=== PATIENT | female | born 1950 | race Caucasian/White ===

== ENCOUNTER 2020-04-15 17:45 | Outpatient (REF) | payer MEDICARE, SELFPAY ==
--- NOTE | 2020-04-15 18:00 | XR_ITS ---
EXAMINATION: XR HIP, LEFT CLINICAL INFORMATION: Left lower quadrant pain COMPARISON: None TECHNIQUE: Two views of the left hip. Frontal view of the pelvis. FINDINGS: There is no fracture or dislocation. The hips are well aligned. Joint spaces are maintained. The pelvic rim is intact. The sacroiliac joints and pubic symphysis are intact. The bowel gas pattern is unremarkable. IMPRESSION: Normal left hip.
== END 2020-04-15 17:46 | disposition home or self-care (01) ==
LOC: HO.XRAY 17:45
PROVIDERS: PCP Internal Medicine; Visit Provider Internal Medicine
DX: R10.32 Left lower quadrant pain (principal)
CPT/HCPCS: 73502

== ENCOUNTER → 2020-05-01 10:40 | Outpatient (BNVA) | payer MEDICARE, SELFPAY | PROVIDERS: PCP Internal Medicine; Referring Provider Internal Medicine; Visit Provider Urology | DX: N20.0 Calculus of kidney (principal) | CPT/HCPCS: 99212 ==

== ENCOUNTER 2020-06-18 18:24 | Emergency (ER) | payer MEDICARE, SELFPAY ==
--- NOTE | 2020-06-18 18:44 | ED.HA ---
HPI - Headache General Chief Complaint: Headache Stated Complaint: headache Time Seen by Provider: 06/18/20 18:38 Source: patient Mode of arrival: ambulatory Limitations: no limitations History of Present Illness HPI Narrative: 70-year-old female with a past medical history of chronic low back pain, anxiety, depression, renal colic, constipation, GERD, essential tremor, high cholesterol, IBS, osteoarthritis here with multiple complaints. C/o head pressure which is generalized with photophobia. No phonophobia. No nausea or vomiting or dizziness. She tells me she has had this pain since last seeing it has been constant and not improved with Tylenol at home. No history of migraines. She has seen Dr. Ku for unstable gait before and had MRI of the brain about 3 years ago which patient tells me was unremarkable. She is also complaining of some acute on chronic low back pain. Similar to previous episodes. The pain radiates to the groin. There is no nausea, vomiting, diarrhea or urinary symptoms associated with this. Patient tells me she did a urine test at the urgent care today and this was unremarkable. No saddle anesthesia or incontinence. No fevers or chills. Patient tells me she is most worried about COVID and would like to be tested for this. No cough, fever, shortness of breath or chest pain. MD elicited complaint: headache Onset (ago): day(s) (since last night ) Onset description: gradually Location: generalized Severity: mild Quality & Timing: pressure Exacerbating factors: none Relieving factors: nothing Associated symptoms: none Treatments prior to arrival: acetaminophen Related Data Home Medications Medication Instructions Recorded Confirmed alendronate 70 mg tablet 70 mg PO QWEEK 04/15/20 05/26/20 buspirone 15 mg tablet 15 mg PO BID 04/15/20 05/26/20 cholecalciferol (vitamin D3) 25 25 mcg PO DAILY 04/15/20 05/26/20 mcg (1,000 unit) capsule cyclosporine 0.09 % eye drops in a 1 drp OPHTHALMIC (EYE) Q12H 04/15/20 05/26/20 dropperette duloxetine 30 mg capsule,delayed 30 mg PO DAILY 04/15/20 05/26/20 release fluticasone propionate 50 2 spray INTRANASAL DAILY 04/15/20 05/26/20 mcg/actuation nasal spray,suspension multivitamin 1 tab PO DAILY 04/15/20 05/26/20 omega-3 fatty acids 1,000 mg 1,000 mg PO DAILY 04/15/20 05/26/20 capsule simvastatin 5 mg tablet 5 mg PO DAILY 04/15/20 05/26/20 trazodone 100 mg tablet 100 mg PO BEDTIME PRN 04/15/20 05/26/20 Previous Rx's Medication Instructions Recorded omeprazole 20 mg capsule,delayed 20 mg PO DAILY #90 cap 04/09/20 release sennosides 8.6 mg-docusate sodium 2 tab-cap PO BEDTIME #60 tab 04/15/20 50 mg tablet gabapentin 100 mg capsule 100 mg PO BEDTIME #30 cap 04/21/20 lactulose 10 gram/15 mL (15 mL) 20 g PO DAILY #750 ml 04/25/20 oral solution tizanidine 2 mg capsule 2 mg PO BEDTIME #30 cap 05/26/20 pjeerbuzbs-nogigtxsshmoe-ixdz 1 cap PO Q8H PRN #10 cap 06/18/20 [Fioricet] Allergies Allergy/AdvReac Type Severity Reaction Status Date / Time lamotrigine [From LAMICTAL] Allergy Intermediate RASH Verified 04/21/20 08:30 Sulfa (Sulfonamide Allergy Intermediate UNKNOWN, Verified 04/21/20 08:30 Antibiotics) upset [SULFA (SULFONAMIDE stomach ANTIBIOTICS)] codeine [CODEINE] Allergy Mild NAUSEA & Verified 04/21/20 08:30 VOMITING, nausea and vomiting penicillin V [PENICILLIN V] Allergy Mild NAUSEA & Verified 04/21/20 08:30 VOMITING, sick to stomach, nausea and vomiting ciprofloxacin [Cipro] Allergy Unknown sick to Verified 04/21/20 08:30 stomach Motrin Allergy Unknown sick to Verified 04/21/20 08:30 stomach, nausea and vomiting Review of Systems Review of Systems: Yes all other systems are reviewed and are negative Constitutional: Constitutional: Reports no additional constitutional complaints, Denies body ache(s), Denies chills, Denies fever(s), Reports headache(s) and Denies weakness Eyes: Eyes: Reports no additional eye complaints, Denies change in vision and Reports photophobia ENT: Reports system reviewed and no additional complaints, except as documented, Denies dizziness, Reports headache(s), Denies nasal congestion, Denies nasal discharge and Denies neck pain Cardiovascular: Cardiovascular: Reports no additional cardiovascular complaints, Denies chest pain, Denies leg edema and Denies dyspnea Respiratory: Respiratory: Reports no additional respiratory complaints, Denies cough and Denies dyspnea Gastrointestinal: Gastrointestinal: Reports no additional gastrointestinal complaints, Denies abdominal pain, Denies diarrhea, Denies nausea and Denies vomiting Genitourinary: Genitourinary: Reports no additional female genitourinary complaints and Denies urinary incontinence Musculoskeletal: Musculoskeletal: Reports no additional musculoskeletal complaints, Reports back pain, Denies arthralgias, Denies joint swelling, Denies neck pain, Denies numbness and Denies tingling Integumentary/Breasts: Skin/Breast: Reports system reviewed and no additional complaints, except as docu and Denies rash Neurologic: Reports system reviewed and no additional complaints, except as documented, Denies Abnormal speech present, Denies dizziness, Reports headache(s), Denies numbness, Denies tingling and Denies weakness PMFSH Past Medical History Attestation statement: The following information was validated with the patient. Source: old records reviewed and nursing notes reviewed Medical History Anxiety and depression Bile salt-induced diarrhea Calculus of left kidney Cholecystectomy planned Constipation Essential tremor GERD (gastroesophageal reflux disease) Hepatitis History of duodenal ulcer Hypercholesterolemia Irritable bowel syndrome Liver hemangioma Osteoarthritis Osteoporosis Right knee meniscal tear Umbilical hernia Surgical History Cataract H/O adenoidectomy History of appendectomy History of eyelid surgery History of knee surgery Family History Family History Father Hypertension Prostate cancer Mother Hypertension Diabetes Dementia Maternal Aunt Gastric cancer Paternal Aunt Gastric cancer Ovarian cancer Paternal Uncle Myocardial infarction Social History Social History Advance Directives: No Advance Directives Information Provided: No Physical Exam Const: General: cooperative, healthy appearing, comfortable and no acute distress Orientation/consciousness: patient oriented x3 Limitations: no limitations HENMT: Head: Yes normal to inspection Ears: hearing grossly normal bilaterally General nose exam: Normal external nose present Face and sinus: Yes normal facial exam Mouth: Normal oral and palatal mucosa present Throat: Yes posterior oropharynx normal Eyes: General: appearance normal, both eyes and all related structures Visual Pena: normal visual pena by confrontation Alignment and Position: alignment normal Periorbital: periorbital findings normal Eyelids: Yes eyelids normal Conjunctivae: conjunctivae normal Sclerae: sclerae normal Corneas: corneas normal Pupils: Equal, round and reactive pupils present EOM: EOMs intact bilaterally Direct Ophthalmoscopy: photophobia Neck: Neck: Yes normal visual inspection Chest: Chest palpation & inspection: normal inspection of the chest Resp: Effort & Inspection: normal respiratory effort Auscultation: clear to auscultation bilaterally Cardio: Rate: regular rate Rhythm: regular rhythm Peripheral pulses: Peripheral pulses 2+ throughout GI: Inspection: Yes normal to inspection Palpation (GI): Soft to palpation and nontender Auscultation: normal bowel sounds Back/Spine/Pelvis: Other: No palpable tenderness in the low back. The patient tells me it feels tight internally and she is unable to localize an area of pain but does point to her low back. When I palpate over this area she has no reproducible pain. Thoracic/Lumbar Spine: thoracic and lumbar spine normal to inspection Skin: General skin exam: no rashes or lesions noted Neuro: General: patient oriented x3, no focal motor deficits and normal sensation to monofilament Cranial nerves: Yes CN's II-XII intact bilaterally, Yes Equal, round and reactive pupils present, Yes Bilaterally intact EOM present, Yes Nystagmus not present, Yes Normal facial strength present, Yes Midline tongue present and Yes Normal gag reflex present Cognition (Neuro): normal cognition Speech: No Abnormal speech present Gait exam (Neuro): Normal gait present Motor exam (neuro): 5/5 motor strength present throughout Sensory Exam: Normal double simultaneous stimulation for sensation Deep tendon reflexes (DTR's): Right patellar reflex intensity grade: 2+ and Left patellar reflex intensity grade: 2+ Coordination: [id number]-hc-fwkd test normal, umol-iu-yxye test normal and tandem gait normal Extrem: General: Yes normal to inspection Course Course Course Narrative: 70-year-old female here with generalized headache with associated photophobia since last night. Neurologically intact. Stable vital signs. Likely migraine. However, will check CT head 2 days each. Also check inflammatory markers. Acute on chronic low back pain with some radiation. No new or focal changes from previous back pain. Patient tells me that she has been seen by her primary care doctor and has had CT and MRI which were unremarkable. She is supposed to follow-up with the neurosurgeon while in 1 month. She has seen chiropractor a and is doing physical therapy and taking medications at home with continued pain. On exam the patient has no neurological deficits or red flag symptoms. I am unable to reproduce her pain on exam. Offered checking urine but patient tells me she did this at urgent care earlier today and it was negative. Requesting COVID testing. Will send this. 2049-CT head negative. Patient's symptoms are improving and pain is almost resolved after benadryl, reglan, NSB. Likely migraine. Labs unremarkable. Reviewed worrisome signs and symptoms and when to return to the emergency department. Comfortable discharge home. MDM - Headache MDM Narrative Medical decision making narrative: Migraine, CVA versus ICH versus lesion, viral syndrome, temporal arteritis Less likely temporal arteritis with normal inflammatory markers. Less likely CVA versus ICH purchase lesion with normal neurological exam and negative imaging. Medical Records Attestation: I reviewed the patient's medical records. Lab Data Attestation: I reviewed the patient's lab results. Result diagrams: 06/18/20 19:35 06/18/20 19:35 Labs: Lab Results 06/18/20 06/18/20 06/18/20 Range/Units 19:35 19:35 19:35 WBC 5.4 (4.8-10.8) X10*3/uL RBC 4.12 L (4.20-5.50) X10*6/uL Hgb 13.3 (12.0-16.0) g/dl Hct 40.2 (37-47) % MCV 97.6 (80-98) fL MCH 32.3 (27.0-33.0) pg MCHC 33.1 (31.0-35.0) g/dl RDW 13.1 (11.0-16.0) % Plt Count 195 (160-400) X10*3/uL MPV 9.6 (9.4-12.3) fL Immature Gran % (Auto) 0.4 (0.0-0.4) % Neut % (Auto) 59.5 (45-73) % Lymph % (Auto) 24.3 (20-40) % [place] % (Auto) 10.5 (2-11) % Eos % (Auto) 4.9 H (0-4) % Baso % (Auto) 0.4 (0-2) % Lymph # (Auto) 1.3 (1.2-4.9) X10*3/uL [place] # (Auto) 0.6 (0.1-1.2) X10*3/uL Eos # (Auto) 0.3 (0.0-0.4) X10*3/uL Baso # (Auto) 0.0 (0.0-0.2) X10*3/uL Abs Immat Gran (auto) 0.02 (0.00-0.03) X10*3/uL Absolute Neuts (auto) 3.2 (2.0-8.3) X10*3/uL Absolute Nucleated RBC 0.000 (0.0-0.012) X10*3/uL Nucleated RBC % (auto) 0.0 (0.0-0.2) /100WBC PT 11.1 (10.8-13.0) SEC INR 0.9 (0.9-1.1) Sodium 142 (135-145) mmol/L Potassium 3.8 (3.3-5.1) mmol/l Chloride 104 (96-108) mmol/L Carbon Dioxide 32 H (22-29) mmol/L Anion Gap 10 L (12-20) BUN 16 (9-16) mg/dL Creatinine 0.77 (0.5-1.4) mg/dL Estim Creat Clear Calc TNP Estimated GFR > 60 Random Glucose 91 (60-115) mg/dL Calcium 9.0 (8.4-10.2) mg/dL Magnesium 2.1 (1.6-2.6) mg/dL Total Bilirubin 0.3 (0.0-1.0) mg/dL Direct Bilirubin < 0.2 (0.0-0.5) mg/dL AST 31 (5-31) U/L ALT 25 (0-31) U/L Alkaline Phosphatase 45 (39-117) U/L C-Reactive Protein 0.23 (< or = 0.50) mg/dL Total Protein 6.7 (6.5-8.0) g/dL Albumin 4.1 (3.5-5.0) g/dL Coronavirus (PCR) (Negative) Influenza Type A (PCR) (Negative) Influenza Type B (PCR) (Negative) RSV RNA Qual (PCR) (Negative) 06/18/20 Range/Units 19:35 WBC (4.8-10.8) X10*3/uL RBC (4.20-5.50) X10*6/uL Hgb (12.0-16.0) g/dl Hct (37-47) % MCV (80-98) fL MCH (27.0-33.0) pg MCHC (31.0-35.0) g/dl RDW (11.0-16.0) % Plt Count (160-400) X10*3/uL MPV (9.4-12.3) fL Immature Gran % (Auto) (0.0-0.4) % Neut % (Auto) (45-73) % Lymph % (Auto) (20-40) % [place] % (Auto) (2-11) % Eos % (Auto) (0-4) % Baso % (Auto) (0-2) % Lymph # (Auto) (1.2-4.9) X10*3/uL [place] # (Auto) (0.1-1.2) X10*3/uL Eos # (Auto) (0.0-0.4) X10*3/uL Baso # (Auto) (0.0-0.2) X10*3/uL Abs Immat Gran (auto) (0.00-0.03) X10*3/uL Absolute Neuts (auto) (2.0-8.3) X10*3/uL Absolute Nucleated RBC (0.0-0.012) X10*3/uL Nucleated RBC % (auto) (0.0-0.2) /100WBC PT (10.8-13.0) SEC INR (0.9-1.1) Sodium (135-145) mmol/L Potassium (3.3-5.1) mmol/l Chloride (96-108) mmol/L Carbon Dioxide (22-29) mmol/L Anion Gap (12-20) BUN (9-16) mg/dL Creatinine (0.5-1.4) mg/dL Estim Creat Clear Calc Estimated GFR Random Glucose (60-115) mg/dL Calcium (8.4-10.2) mg/dL Magnesium (1.6-2.6) mg/dL Total Bilirubin (0.0-1.0) mg/dL Direct Bilirubin (0.0-0.5) mg/dL AST (5-31) U/L ALT (0-31) U/L Alkaline Phosphatase (39-117) U/L C-Reactive Protein (< or = 0.50) mg/dL Total Protein (6.5-8.0) g/dL Albumin (3.5-5.0) g/dL Coronavirus (PCR) NEGATIVE (Negative) Influenza Type A (PCR) NEGATIVE (Negative) Influenza Type B (PCR) NEGATIVE (Negative) RSV RNA Qual (PCR) NEGATIVE (Negative) Imaging Data CT scan - head: Attestation: I personally reviewed and interpreted this imaging study as follows: Radiologist's impression: EXAMINATION: CT HEAD WITHOUT CONTRAST CLINICAL INFORMATION: 70-year-old female patient with headache. COMPARISON: None TECHNIQUE: Contiguous axial imaging was performed from the skull base to vertex without intravenous administration of contrast. This CT examination was performed using dose optimization techniques as appropriate, variously including the following: *Automated exposure control *Adjustment of mA and/or kV according to patient size (this includes techniques or standardized protocols for targeted exams where dose is matched to indication/reason for exam; i.e. extremities or head) *Use of iterative reconstruction technique DLP: 612 mGy-cm FINDINGS: There is no evidence of acute intracranial hemorrhage or territorial infarction. No abnormal mass effect or midline shift is seen. Peterson to white matter differentiation is well preserved. No extra-axial fluid collections are identified. The ventricles are normal in size. There is no abnormal attenuation within the brain parenchyma. The osseous structures and soft tissues are normal. The mastoid air cells and visualized portions of the paranasal sinuses are well aerated. CT/CT head/brain wo con IMPRESSION: No acute intracranial pathology. Discharge Plan Discharge Clinical Impression: Migraine Qualifiers: Migraine type: unspecified Status migrainosus presence: without status migrainosus Intractability: not intractable Qualified Code(s): G43.909 - Migraine, unspecified, not intractable, without status migrainosus Patient Disposition: Home, Self-Care Instructions: Migraine Headache (ED) Additional Instructions: Avoid migraine triggers. Stay well hydrated and get plenty of rest Prescriptions: New gxxyldzuao-wlavrnuqfephp-kdtg [Fioricet] 50-300-40 mg capsule 1 cap PO Q8H PRN (Reason: pain) Qty: 10 RF: 0 No Action omeprazole 20 mg capsule,delayed release(DR/EC) 20 mg PO DAILY Qty: 90 RF: 3 lactulose 10 gram/15 mL (15 mL) solution 20 g PO DAILY Qty: 750 RF: 1 omega-3 fatty acids 1,000 mg capsule 1,000 mg PO DAILY RF: 0 cholecalciferol (vitamin D3) 25 mcg (1,000 unit) capsule 25 mcg PO DAILY RF: 0 multivitamin Tablet 1 tab PO DAILY RF: 0 Cequa 0.09 % dropperette 1 drp ophthalmic (eye) Q12H RF: 0 fluticasone propionate 50 mcg/actuation spray,suspension 2 spray intranasal DAILY RF: 0 buspirone 15 mg tablet 15 mg PO BID RF: 0 alendronate [Fosamax] 70 mg tablet 70 mg PO QWEEK RF: 0 trazodone 100 mg tablet 100 mg PO BEDTIME PRNRF: 0 duloxetine [Cymbalta] 30 mg capsule,delayed release(DR/EC) 30 mg PO DAILY RF: 0 simvastatin 5 mg tablet 5 mg PO DAILY RF: 0 sennosides-docusate sodium [Senna-S] 8.6-50 mg tablet 2 tab-cap PO BEDTIME Qty: 60 RF: 3 gabapentin 100 mg capsule 100 mg PO BEDTIME Qty: 30 RF: 0 tizanidine 2 mg capsule 2 mg PO BEDTIME Qty: 30 RF: 0 Referrals: Po,Darwin Wasserman MD [Primary Care Provider] - 2 days Interventions: ED Discharge Assessment Last Done: 06/18/20 21:00
--- NOTE | 2020-06-18 18:58 | CT_ITS ---
EXAMINATION: CT HEAD WITHOUT CONTRAST CLINICAL INFORMATION: 70-year-old female patient with headache. COMPARISON: None TECHNIQUE: Contiguous axial imaging was performed from the skull base to vertex without intravenous administration of contrast. This CT examination was performed using dose optimization techniques as appropriate, variously including the following: *Automated exposure control *Adjustment of mA and/or kV according to patient size (this includes techniques or standardized protocols for targeted exams where dose is matched to indication/reason for exam; i.e. extremities or head) *Use of iterative reconstruction technique DLP: 612 mGy-cm FINDINGS: There is no evidence of acute intracranial hemorrhage or territorial infarction. No abnormal mass effect or midline shift is seen. Peterson to white matter differentiation is well preserved. No extra-axial fluid collections are identified. The ventricles are normal in size. There is no abnormal attenuation within the brain parenchyma. The osseous structures and soft tissues are normal. The mastoid air cells and visualized portions of the paranasal sinuses are well aerated. CT/CT head/brain wo con IMPRESSION: No acute intracranial pathology.
[2020-06-18] MEDS: 0.9 % Sodium Chloride 1,000 ML 999 ML IV (19:48)
[2020-06-18] MEDS: diphenhydrAMINE HCL 50 MG/ML VIAL 25 MG IVPUSH (19:48)
[2020-06-18] MEDS: Metoclopramide HCl 10 MG/2 ML VIAL IVPUSH (19:49)
[2020-06-18 20:02] LABS: Basophils Percent Auto 0.4 % (0-2); Eosinophils Absolute Auto 0.3 X10*3/uL (0.0-0.4); Eosinophils Percent Auto 4.9 % (0-4); Hematocrit 40.2 % (37-47); Hemoglobin 13.3 g/dl (12.0-16.0); Imm Gran Abs Auto 0.02 X10*3/uL (0.00-0.03); Imm Gran Pct Auto 0.4 % (0.0-0.4); Lymphocytes Absolute Auto 1.3 X10*3/uL (1.2-4.9); Lymphocytes Percent Auto 24.3 % (20-40); Mean Corpuscular HGB Conc 33.1 g/dl (31.0-35.0); Mean Corpuscular Hemoglobin 32.3 pg (27.0-33.0); Mean Corpuscular Volume 97.6 fL (80-98); Mean Platelet Volume 9.6 fL (9.4-12.3); Monocytes Absolute Auto 0.6 X10*3/uL (0.1-1.2); Monocytes Percent Auto 10.5 % (2-11); Neutrophils Absolute Auto 3.2 X10*3/uL (2.0-8.3); Neutrophils Percent Auto 59.5 % (45-73); Platelet Count 195 X10*3/uL (160-400); Red Blood Count 4.12 X10*6/uL (4.20-5.50); Red Cell Distribution Width 13.1 % (11.0-16.0); White Blood Count 5.4 X10*3/uL (4.8-10.8)
[2020-06-18 20:03] LABS: MANUAL DIFF FLAG NO
[2020-06-18 20:10] LABS: INTERNATIONAL NORM RATIO 0.9 (0.9-1.1); Prothrombin Time 11.1 SEC (10.8-13.0)
[2020-06-18 20:29] LABS: Alanine Aminotransferase 25 U/L (0-31); Albumin Level 4.1 g/dL (3.5-5.0); Alkaline Phosphatase 45 U/L (39-117); Anion Gap 10 (12-20); Aspartate Amino Transferase 31 U/L (5-31); Bilirubin Direct < 0.2 mg/dL (0.0-0.5); Bilirubin Total 0.3 mg/dL (0.0-1.0); Blood Urea Nitrogen 16 mg/dL (9-16); C Reactive Protein 0.23 mg/dL (< or = 0.50); Carbon Dioxide 32 mmol/L (22-29); Chloride 104 mmol/L (96-108); Estimated Glomerular Filt Rate > 60; Glucose Random 91 mg/dL (60-115); Magnesium 2.1 mg/dL (1.6-2.6); Potassium 3.8 mmol/l (3.3-5.1); Sodium 142 mmol/L (135-145); Total Protein 6.7 g/dL (6.5-8.0)
[2020-06-18 20:39] LABS: Influenza A PCR NEGATIVE (Negative); Influenza B PCR NEGATIVE (Negative); Resp Syncy Virus RNA Qual PCR NEGATIVE (Negative); SARS COV2 PCR INHOUSE NEGATIVE (Negative)
[2020-06-18 21:25] LABS: Erythrocyte Sedimentation Rate 5 MM/HR (0-20)
== END 2020-06-18 21:44 | disposition home or self-care (01) ==
PROVIDERS: Nurse Practitioner Family; Emergency Provider Emergency Medicine; PCP Internal Medicine
DX: G43.909 Migraine, unspecified, not intractable, without status migrainosus (principal); Z20.828 Contact with and (suspected) exposure to other viral communicable diseases
CPT/HCPCS: 0241U; 36415; 70450; 80048; 80076; 83735; 85025; 85610; 85652; 86140; 99282; J1200; J2765

== ENCOUNTER → 2020-06-25 14:33 | Outpatient (BNVA) | payer MEDICARE, SELFPAY | PROVIDERS: PCP Internal Medicine; Visit Provider Student in an Organized Health Care Education/Training Program | DX: Z13.89 Encounter for screening for other disorder (principal) | CPT/HCPCS: Q3014 ==

== ENCOUNTER 2020-08-04 14:00 | Outpatient (RCR) | payer MEDICARE, SELFPAY ==
--- NOTE | 2020-06-05 09:50 | MHC.PT.EP ---
[facility] [place] [facility] [place] [facility] [place] [facility] [address] López Restrepo [address] [phone] F: [phone] F: [phone] F: [phone] F: [phone] Physical Therapy Plan of Care Date of Evaluation: 06/04/20 Date of Surgery: n/a Diagnosis: low back and R lower quarter pain. Assessment: Patient is a 70 year old R handed female who presents with s/s consistent with L lower quarter pain, back pain. She likes to be active and walk regularly. However, this has become increasingly more limited in recent months due to impairments and functional limitations. Patient past medical history includes R meniscectomy and retair. Current impairments include pain, ROM, strength, safety, independence, activity tolerance and functional mobility. Functional limitations include decreased ability to walk, stand, transfer, bend, lift, negotiate stairs, and perform weight bearing activities.. Patient is motivated with good rehab potential. Skilled PT will address impairments and functional limitations in order to achieve goals. Frequency and Duration: The patient will be seen 2x/week for 6 weeks Short Term Goals: I with HEP - 2 weeks TTP absent - 3 weeks Able to transfer pain free - 3 weeks Snf Goals: Hip strength 4/5 grossly - 5 weeks Able to sit/walk > 30 minutes without increased pain - 5 weeks Max pain 2/10 with ADLs - 6 weeks Treatment Plan: Modalities to reduce pain, spasms and effusion. Manual therapy to restore motion and function. Therapeutic exercise to improve strength and flexibility. Neuromuscular re-education for posture and balance. Therapeutic activities to return to functional activities of daily living. Electronically signed by: Crow Pagan, PT Please sign and return to therapist. Thank you for your referral.
--- NOTE | 2020-09-08 13:50 | MHC.PT.DC ---
[facility] [place] Office [place] Office [place] Office [address] López Restrepo [address] [phone] F: [phone] F: [phone] F: [phone] F: [phone] Physical Therapy Discharge Report Diagnosis: low back and R lower quarter pain. Date of Surgery: n/a Date of Evaluation: 06/04/20 Date of Discharge: 08/15/20 Treatments to Date: 10 Cancellations to Date: No Shows to Date: Discharge Status: Recommend MD Follow-up Discharge Summary: after discussion with pt, we decided that continuing with HEP is the best option since progress has been slow and she is I with HEP. She will call back in 2-3 with update on progress. No progress at this time and we will d/c from PT. Electronically signed by: Crow Pagan, PT Please sign and return to therapist. Thank you for your referral.
== END 2020-09-08 14:00 | disposition home or self-care (01) ==
LOC: HO.PTCHIC 14:00
PROVIDERS: PCP Internal Medicine; Visit Provider Internal Medicine
DX: R10.32 Left lower quadrant pain (principal); G89.29 Other chronic pain
CPT/HCPCS: 97110; 97112; 97140; 97162

== ENCOUNTER 2020-08-16 00:14 | Inpatient (IN) | payer MEDICARE, SELFPAY ==
[2020-08-16] VITALS (9 sets, daily range): BP systolic 100–140; BP diastolic 56–74; PULSE 64–93; RESP 14–18; TEMP 36.1–37.4; O2SAT 97–100; BMI 23.8
--- NOTE | 2020-08-16 | ECG_ITS ---
Test Reason : CHEST PAIN Blood Pressure : / mmHG Vent. Rate : 082 BPM Atrial Rate : 082 BPM P-R Int : 174 ms QRS Dur : 088 ms QT Int : 372 ms P-R-T Axes : 048 069 020 degrees QTc Int : 434 ms Normal sinus rhythm Normal ECG When compared with ECG of 30-JUL-2019 17:28, No significant change was found Referred By: Tami Bal Electronically Signed By:MUNIRA SHELDON MD
--- NOTE | ~2020-08-16 | MR_ITS ---
EXAMINATION: MR ABDOMEN WITHOUT CONTRAST CLINICAL INFORMATION: Epigastric pain and elevated liver function tests COMPARISON: Previous CT scans of the abdomen and pelvis and abdomen ultrasounds most recent from yesterday and previous abdominal MRI May 2014 TECHNIQUE: MR abdomen is performed without gadolinium contrast. MRCP sequences were also performed. FINDINGS: LUNG BASES: The visualized lung bases are unremarkable. LIVER, GALLBLADDER, AND BILIARY TREE: The liver is normal in size, smooth in contour, and normal in signal. There are 2 stable liver lesions measuring 2 cm in the lateral segment of the left lobe and 1.2 cm in the posterior segment of the right lobe. These are low signal on T1 and high signal on T2-weighted sequences. These are not characterized by MRI without contrast however when compared with previous contrast-enhanced CT scans are suggestive of benign hemangiomas. These are unchanged from previous exams going back to 2013. These were found to represent benign hemangiomas on May 2014 MRI. The gallbladder is been removed. There is no intra or extrahepatic biliary duct dilatation. Common bile duct measures 6 mm. No common bile duct stone is seen. PANCREAS: Unremarkable. SPLEEN: Unremarkable. ADRENAL GLANDS: Unremarkable. KIDNEYS AND URETERS: The kidneys are normal in size and shape. No hydronephrosis. No perinephric stranding. GASTROINTESTINAL TRACT: No bowel obstruction. No ascites or fluid collection. ABDOMINAL WALL: There is a small umbilical hernia containing fat. LYMPH NODES: No lymphadenopathy. VASCULAR: Unremarkable. OSSEOUS STRUCTURES: Marrow signal normal. There are degenerative changes of the spine. MR/MR MRCP IMPRESSION: Stable liver lesions found to represent benign hemangiomas on previous abdominal MRI. Otherwise unremarkable exam.
--- NOTE | ~2020-08-16 | US_ITS ---
EXAMINATION: US ABDOMEN LIMITED CLINICAL INFORMATION: Abdominal pain. Check portal vein patency.. COMPARISON: Previous CT scan most recent from earlier the same day and previous abdominal MRI May 2014 TECHNIQUE: Real-time imaging of the abdominal viscera. Doppler color and grayscale evaluation of the portal vessels including waveform spectral analysis. FINDINGS: PANCREAS: Not well visualized due to bowel gas LIVER: Liver echotexture is normal. There are 2 hyperechoic lesions measuring 1.4 x 1.5 x 1.8 cm in the left lobe and 1.3 x 1.5 x 1.2 cm in the right lobe. These are stable from previous exams and likely represent benign hemangiomas. No other focal liver lesion is seen. There is no intrahepatic biliary duct dilatation seen. GALLBLADDER: Surgically removed. COMMON BILE DUCT: Normal in caliber measuring 0.2 cm in diameter. RIGHT KIDNEY: Normal. No hydronephrosis. No renal calculi or focal parenchymal lesions. The kidney measures 8.9 cm in maximum dimension. FREE FLUID: None. The main portal vein is patent with appropriate hepatopedal flow. The right and left portal veins are patent with appropriate hepatopedal flow. The splenic confluence is patent with appropriate hepatopedal flow. US/US abdomen limited IMPRESSION: Stable echogenic liver lesions likely representing benign hemangiomas. Patent main portal vein with appropriate hepatopedal flow. Limited visualization of the pancreas.
--- NOTE | ~2020-08-16 | US_ITS ---
EXAMINATION: US ABDOMEN LIMITED CLINICAL INFORMATION: Abdominal pain. Check portal vein patency.. COMPARISON: Previous CT scan most recent from earlier the same day and previous abdominal MRI May 2014 TECHNIQUE: Real-time imaging of the abdominal viscera. Doppler color and grayscale evaluation of the portal vessels including waveform spectral analysis. FINDINGS: PANCREAS: Not well visualized due to bowel gas LIVER: Liver echotexture is normal. There are 2 hyperechoic lesions measuring 1.4 x 1.5 x 1.8 cm in the left lobe and 1.3 x 1.5 x 1.2 cm in the right lobe. These are stable from previous exams and likely represent benign hemangiomas. No other focal liver lesion is seen. There is no intrahepatic biliary duct dilatation seen. GALLBLADDER: Surgically removed. COMMON BILE DUCT: Normal in caliber measuring 0.2 cm in diameter. RIGHT KIDNEY: Normal. No hydronephrosis. No renal calculi or focal parenchymal lesions. The kidney measures 8.9 cm in maximum dimension. FREE FLUID: None. The main portal vein is patent with appropriate hepatopedal flow. The right and left portal veins are patent with appropriate hepatopedal flow. The splenic confluence is patent with appropriate hepatopedal flow. US/US duplex arterial venous comp IMPRESSION: Stable echogenic liver lesions likely representing benign hemangiomas. Patent main portal vein with appropriate hepatopedal flow. Limited visualization of the pancreas.
--- NOTE | ~2020-08-16 | CT_ITS ---
EXAMINATION: CT ABDOMEN AND PELVIS WITHOUT CONTRAST CLINICAL INFORMATION: Epigastric pain. Elevated LFTs. COMPARISON: 03/14/2020 TECHNIQUE: Multidetector volumetric imaging was performed from the superior aspect of the liver through the pubic symphysis. Sagittal and coronal reformatted images were obtained on the technologist's workstation. This CT examination was performed using dose optimization techniques as appropriate, variously including the following: *Automated exposure control *Adjustment of mA and/or kV according to patient size (this includes techniques or standardized protocols for targeted exams where dose is matched to indication/reason for exam; i.e. extremities or head) *Use of iterative reconstruction technique DLP: 425 mGy-cm FINDINGS: LUNG BASES: The visualized lung bases are unremarkable. LIVER, GALLBLADDER, AND BILIARY TREE: The liver is normal in size, shape, and attenuation. No focal hepatic lesion or biliary ductal dilatation is present. Cholecystectomy. PANCREAS: Unremarkable. SPLEEN: Unremarkable. ADRENAL GLANDS: Unremarkable. KIDNEYS AND URETERS: The kidneys are normal in size, shape, and attenuation. No hydronephrosis or hydroureter. 0.1 cm left upper pole calculus noted, 8 cm from the posterior axillary line. BLADDER: Unremarkable. GASTROINTESTINAL TRACT: The stomach is distended without wall thickening. Normal caliber small bowel. No obstruction. No colonic wall thickening or inflammatory change. Mild colonic stool burden. No free air or free fluid. ABDOMINAL WALL: No significant hernia is appreciated. LYMPH NODES: Normal. VASCULAR: Normal caliber aorta with mild atherosclerotic calcification. PELVIC VISCERA: The uterus and adnexa are unremarkable. OSSEOUS STRUCTURES: No acute or suspicious osseous abnormality. Multilevel degenerative changes of the spine. CT/CT abdomen pelvis wo con IMPRESSION: No acute findings in the abdomen or pelvis. No inflammatory changes. Cholecystectomy.
--- NOTE | 2020-08-16 01:44 | ED.CHESTPAIN ---
HPI - Chest Pain General Chief Complaint: Chest Pain Stated Complaint: chest pain Time Seen by Provider: 08/16/20 01:19 Source: patient Mode of arrival: EMS Limitations: no limitations History of Present Illness HPI narrative: Patient comes emergency room complaining of epigastric pain for 6 hours. Patient states it started while drinking water, patient states she started feeling discomfort in the epigastric area radiating towards the back. Patient denies chest pain, no shortness of breath. Initially patient reported to EMS and triage nurse that she was having chest pain, but states that in reality it was mostly epigastric and abdominal pain. Patient states later this evening, patient tried to eat a quesadilla, had to stop because she developed epigastric left upper forearm pain immediately. Patient tried to eat something smaller, but she had similar discomfort with eating. Patient states she already had a cholecystectomy patient is known to have GERD, states that today's symptoms are similar. Related Data Home Medications Medication Instructions Recorded Confirmed alendronate 70 mg tablet 70 mg PO QWEEK 04/15/20 06/30/20 buspirone 15 mg tablet 15 mg PO BID 04/15/20 06/30/20 cholecalciferol (vitamin D3) 25 25 mcg PO DAILY 04/15/20 06/30/20 mcg (1,000 unit) capsule cyclosporine 0.09 % eye drops in a 1 drp OPHTHALMIC (EYE) Q12H 04/15/20 06/30/20 dropperette duloxetine 30 mg capsule,delayed 30 mg PO DAILY 04/15/20 06/30/20 release fluticasone propionate 50 2 spray INTRANASAL DAILY 04/15/20 06/30/20 mcg/actuation nasal spray,suspension multivitamin 1 tab PO DAILY 04/15/20 06/30/20 omega-3 fatty acids 1,000 mg 1,000 mg PO DAILY 04/15/20 06/30/20 capsule simvastatin 5 mg tablet 5 mg PO DAILY 04/15/20 06/30/20 trazodone 100 mg tablet 100 mg PO BEDTIME PRN 04/15/20 06/30/20 Previous Rx's Medication Instructions Recorded omeprazole 20 mg capsule,delayed 20 mg PO DAILY #90 cap 04/09/20 release sennosides 8.6 mg-docusate sodium 2 tab-cap PO BEDTIME #60 tab 04/15/20 50 mg tablet lactulose 10 gram/15 mL (15 mL) 20 g PO DAILY #750 ml 04/25/20 oral solution Allergies Allergy/AdvReac Type Severity Reaction Status Date / Time lamotrigine [From LAMICTAL] Allergy Intermediate RASH Verified 08/16/20 00:53 Sulfa (Sulfonamide Allergy Intermediate UNKNOWN, Verified 08/16/20 00:53 Antibiotics) upset [SULFA (SULFONAMIDE stomach ANTIBIOTICS)] codeine [CODEINE] Allergy Mild NAUSEA & Verified 08/16/20 00:53 VOMITING, nausea and vomiting penicillin V [PENICILLIN V] Allergy Mild NAUSEA & Verified 08/16/20 00:53 VOMITING, sick to stomach, nausea and vomiting ciprofloxacin [Cipro] Allergy Unknown sick to Verified 08/16/20 00:53 stomach Motrin Allergy Unknown sick to Verified 08/16/20 00:53 stomach, nausea and vomiting Review of Systems Review of Systems: Constitutional : No Weight loss, No Fever, No Chills, No Night Sweats, No Fatigue, No Malaise ENT/Mouth : No Hearing loss, No Ear Pain, No Nasal Congestion, No Sinus Pain, No Hoarseness, No sore throat, No Rhinorrhea, No Swallowing Difficulty Eyes: No Eye Pain, No Swelling, No Redness, No Foreign Body, No Discharge, No Vision Changes Cardiovascular : No Chest Pain, No SOB, No Dyspnea on Exertion, No Orthopnea, No Edema, No Palpitations Respiratory : No Cough, No Sputum, No Wheezing, No Smoke Exposure, No Dyspnea Gastrointestinal : No Nausea, No Vomiting, No Diarrhea, No Constipation, complaining of epigastric and left upper quadrant pain with food intake, No Hematochezia, No Melena Genitourinary : no irregular bleeding, No Dysuria, No Urinary Frequency, No Hematuria, No Urinary Incontinence, No Urgency, No Flank Pain, No Urinary Flow Changes, No Hesitancy Musculoskeletal : No joint pain, No Myalgias, No Joint Swelling Skin : No Skin Lesions, No rash Neuro : No Weakness, No Numbness, No Paresthesias, No Loss of Consciousness, No Dizziness, No Headache Psych : Reports anxiety due to the epigastric pain, No Depression, No SI/HI/AH/VH, No Social Issues, Heme/Lymph: No Bruising, No Bleeding,No Lymphadenopathy Endocrine : No Polyuria, No Polydipsia, No Temperature Intolerance [facility], [facility] Past Medical History Medical History (Updated 08/16/20 @ 06:58 by Tami Bal MD) Anxiety and depression Bile salt-induced diarrhea Calculus of left kidney Cholecystectomy planned Constipation Essential tremor GERD (gastroesophageal reflux disease) Hepatitis History of duodenal ulcer Hypercholesterolemia Irritable bowel syndrome Liver hemangioma Osteoarthritis Osteoporosis Right knee meniscal tear Sjogren's syndrome Umbilical hernia Surgical History (Updated 08/16/20 @ 04:20 by Tami Bal MD) Cataract H/O adenoidectomy History of appendectomy History of cholecystectomy History of eyelid surgery History of knee surgery Family History Family History Father Hypertension Prostate cancer Mother Hypertension Diabetes Dementia Maternal Aunt Gastric cancer Paternal Aunt Gastric cancer Ovarian cancer Paternal Uncle Myocardial infarction Social History Social History (Updated 06/25/20 @ 14:37 by Sheila Tubbs [facility]) Alcohol intake: never Smoking Status: Never smoker Advance Directives: No Physical Exam Vital Signs: Vital Signs: Last Vital Signs Temp 99.3 F 08/16/20 00:45 Pulse 64 08/16/20 05:54 Resp 16 08/16/20 04:00 BP 128/62 08/16/20 05:54 Pulse Ox 98 08/16/20 05:54 Body Mass Index 23.8 Appearance: Alert. Oriented X3. No acute distress. Eyes: Pupils equal, round and reactive to light. ENT: Pharynx normal. Neck: Normal inspection. Neck supple. No lymph nodes noted. No crepitus CVS: Normal heart rate and rhythm. Pulses normal. Normal S1 and S2, no reproducible chest pain Respiratory: No respiratory distress. Breath sounds normal. No Wheezing. No rales Abdomen: Soft , no abdominal tenderness on palpation, No rigidity. No distention. good BS x4 Skin: Skin warm and dry. Normal skin color. Normal skin turgor. Extremities: No lower extremity edema. No lower extremity edema. No Lacerations. No Rash Neuro: Oriented X 3. No motor deficit. No sensory deficit. Moving all extermities. No slurred speech. Course Course Course Narrative: Reviewing patient's labs, it was noted that her LFTs are elevated. Reviewing the patient's records, in May of 2014, patient had a similar experience, where her LFTs were elevated, patient was diagnosed with acute hepatitis of unknown origin. Patient denies using Tylenol. Hepatitis A, B and C panel pending I discussed the patient with Dr. Steele, patient will be admitted for observation, LFTs need to be trended. It is possible the patient has again acute hepatitis of unclear etiology. MDM - Chest Pain Lab Data Result diagrams: 08/16/20 02:15 08/16/20 02:15 Labs: Lab Results 08/16/20 08/16/20 08/16/20 Range/Units 02:15 02:15 02:15 WBC 8.3 (4.8-10.8) X10*3/uL RBC 4.34 (4.20-5.50) X10*6/uL Hgb 14.0 (12.0-16.0) g/dl Hct 41.0 (37-47) % MCV 94.5 (80-98) fL MCH 32.3 (27.0-33.0) pg MCHC 34.1 (31.0-35.0) g/dl RDW 13.0 (11.0-16.0) % Plt Count 194 (160-400) X10*3/uL MPV 9.0 L (9.4-12.3) fL Immature Gran % (Auto) 0.4 (0.0-0.4) % Neut % (Auto) 83.2 H (45-73) % Lymph % (Auto) 9.1 L (20-40) % Catron % (Auto) 7.0 (2-11) % Eos % (Auto) 0.2 (0-4) % Baso % (Auto) 0.1 (0-2) % Lymph # (Auto) 0.8 L (1.2-4.9) X10*3/uL Catron # (Auto) 0.6 (0.1-1.2) X10*3/uL Eos # (Auto) 0.0 (0.0-0.4) X10*3/uL Baso # (Auto) 0.0 (0.0-0.2) X10*3/uL Abs Immat Gran (auto) 0.03 (0.00-0.03) X10*3/uL Absolute Neuts (auto) 6.9 (2.0-8.3) X10*3/uL Absolute Nucleated RBC 0.000 (0.0-0.012) X10*3/uL Nucleated RBC % (auto) 0.0 (0.0-0.2) /100WBC Sodium 139 (135-145) mmol/L Potassium 3.8 (3.3-5.1) mmol/L Chloride 103 (96-108) mmol/L Carbon Dioxide 26 (22-29) mmol/L Anion Gap 14 (12-20) BUN 15 (9-16) mg/dL Creatinine 0.75 (0.5-1.4) mg/dL Estim Creat Clear Calc 53.6 Estimated GFR > 60 Random Glucose 115 (60-115) mg/dL Calcium 9.0 (8.4-10.2) mg/dL Total Bilirubin 1.5 H (0.0-1.0) mg/dL Direct Bilirubin 1.0 H (0.0-0.5) mg/dL AST 1029 H (5-31) U/L ALT 598 H (0-31) U/L Alkaline Phosphatase 97 D (39-117) U/L Troponin I High Sens < 3.5 (<3.5-17.0) ng/L Total Protein 7.0 (6.5-8.0) g/dL Albumin 4.2 (3.5-5.0) g/dL Lipase 10 (8-78) U/L Imaging Data CT scan - abdomen: Radiologist's impression: LUNG BASES: The visualized lung bases are unremarkable. LIVER, GALLBLADDER, AND BILIARY TREE: The liver is normal in size, shape, and attenuation. No focal hepatic lesion or biliary ductal dilatation is present. Cholecystectomy. PANCREAS: Unremarkable. SPLEEN: Unremarkable. ADRENAL GLANDS: Unremarkable. KIDNEYS AND URETERS: The kidneys are normal in size, shape, and attenuation. No hydronephrosis or hydroureter. 0.1 cm left upper pole calculus noted, 8 cm from the posterior axillary line. BLADDER: Unremarkable. GASTROINTESTINAL TRACT: The stomach is distended without wall thickening. Normal caliber small bowel. No obstruction. No colonic wall thickening or inflammatory change. Mild colonic stool burden. No free air or free fluid. ABDOMINAL WALL: No significant hernia is appreciated. LYMPH NODES: Normal. VASCULAR: Normal caliber aorta with mild atherosclerotic calcification. PELVIC VISCERA: The uterus and adnexa are unremarkable. OSSEOUS STRUCTURES: No acute or suspicious osseous abnormality. Multilevel degenerative changes of the spine. CT/CT abdomen pelvis wo con IMPRESSION: No acute findings in the abdomen or pelvis. No inflammatory changes. Cholecystectomy. Discharge Plan Discharge Clinical Impression: Abdominal pain, epigastric, Acute hepatitis Patient Disposition: Admitted As Inpatient Prescriptions: No Action omeprazole 20 mg capsule,delayed release(DR/EC) 20 mg PO DAILY Qty: 90 RF: 3 lactulose 10 gram/15 mL (15 mL) solution 20 g PO DAILY Qty: 750 RF: 1 omega-3 fatty acids 1,000 mg capsule 1,000 mg PO DAILY RF: 0 cholecalciferol (vitamin D3) 25 mcg (1,000 unit) capsule 25 mcg PO DAILY RF: 0 multivitamin Tablet 1 tab PO DAILY RF: 0 Cequa 0.09 % dropperette 1 drp ophthalmic (eye) Q12H RF: 0 fluticasone propionate 50 mcg/actuation spray,suspension 2 spray intranasal DAILY RF: 0 buspirone 15 mg tablet 15 mg PO BID RF: 0 alendronate [Fosamax] 70 mg tablet 70 mg PO QWEEK RF: 0 trazodone 100 mg tablet 100 mg PO BEDTIME PRNRF: 0 duloxetine [Cymbalta] 30 mg capsule,delayed release(DR/EC) 30 mg PO DAILY RF: 0 simvastatin 5 mg tablet 5 mg PO DAILY RF: 0 sennosides-docusate sodium [Senna-S] 8.6-50 mg tablet 2 tab-cap PO BEDTIME Qty: 60 RF: 3
[2020-08-16] MEDS: Lidocaine HCl Viscous 2 % 15 ML SOLUTION MUCOUS MEM (02:06)
[2020-08-16] MEDS: Magnesium Hydrox/Alum Hydrox 30 ML ORAL.SUSP 15 ML PO (02:06)
[2020-08-16 02:20] LABS: Basophils Percent Auto 0.1 % (0-2); Eosinophils Percent Auto 0.2 % (0-4); Imm Gran Abs Auto 0.03 X10*3/uL (0.00-0.03); Imm Gran Pct Auto 0.4 % (0.0-0.4); Lymphocytes Absolute Auto 0.8 X10*3/uL (1.2-4.9); Lymphocytes Percent Auto 9.1 % (20-40); MANUAL DIFF FLAG NO; Mean Corpuscular HGB Conc 34.1 g/dl (31.0-35.0); Mean Corpuscular Hemoglobin 32.3 pg (27.0-33.0); Mean Corpuscular Volume 94.5 fL (80-98); Monocytes Absolute Auto 0.6 X10*3/uL (0.1-1.2); Neutrophils Absolute Auto 6.9 X10*3/uL (2.0-8.3); Neutrophils Percent Auto 83.2 % (45-73); Platelet Count 194 X10*3/uL (160-400); Red Blood Count 4.34 X10*6/uL (4.20-5.50); White Blood Count 8.3 X10*3/uL (4.8-10.8)
[2020-08-16 02:45] LABS: Alanine Aminotransferase 598 U/L (0-31); Albumin Level 4.2 g/dL (3.5-5.0); Alkaline Phosphatase 97 U/L (39-117); Anion Gap 14 (12-20); Aspartate Amino Transferase 1029 U/L (5-31); Bilirubin Total 1.5 mg/dL (0.0-1.0); Blood Urea Nitrogen 15 mg/dL (9-16); Carbon Dioxide 26 mmol/L (22-29); Chloride 103 mmol/L (96-108); Creatinine Clr Calc Pharmacy 53.6; Estimated Glomerular Filt Rate > 60; Glucose Random 115 mg/dL (60-115); Lipase 10 U/L (8-78); Potassium 3.8 mmol/L (3.3-5.1); Sodium 139 mmol/L (135-145)
[2020-08-16 02:47] LABS: Troponin-I High Sensitivity < 3.5 ng/L (<3.5-17.0)
[2020-08-16 09:25] LABS: Hematocrit 38.9 % (37-47); Hemoglobin 13.4 g/dl (12.0-16.0); Mean Corpuscular HGB Conc 34.4 g/dl (31.0-35.0); Mean Corpuscular Hemoglobin 32.4 pg (27.0-33.0); Mean Corpuscular Volume 94.2 fL (80-98); Mean Platelet Volume 9.8 fL (9.4-12.3); Platelet Count 199 X10*3/uL (160-400); Red Blood Count 4.13 X10*6/uL (4.20-5.50); Red Cell Distribution Width 12.9 % (11.0-16.0); White Blood Count 7.1 X10*3/uL (4.8-10.8)
[2020-08-16 09:29] LABS: COVID-19 Test Negative (Negative); IDNOW Serial# 9DD0AD1C
[2020-08-16 09:31] LABS: Prothrombin Time 12.1 SEC (10.8-13.0)
--- NOTE | 2020-08-16 09:44 | PM.IMHP ---
History of Present Illness Date of Service: 08/16/20 Chief Complaint: epigastric pain 70-year-old female presented with epigastric pain. Patient states pain started 1 day prior to presentation. Was epigastric and radiating bilateral around back. It was worsened when patient tried to eat and drink. Associated with nausea without vomiting. Denies lower abdominal pain or diarrhea. Denies any GI bleeding. Denies any fevers, but reports chills. Patient recently meal from restaurant, denies sick contacts. Denies any new medications. Denies any alcohol or drug use. Patient had a similar episode in 2013 with epigastric pain and elevated transaminases. At that time workup was negative and transaminases and symptoms resolved on their own. Review of Systems Review of Systems: Constitutional: Denies fever, postive Chills Eyes: denies blurry vision ENT: denies sore throat CVS: denies chest pain Respiratory: Denies dyspnea GI: abdominal pain : denies dysuria MSK: denies neck pain Skin: denies rash Neuro: denies specific motor weakness Psych: denies suicidal ideation Endocrine: denies heat/cold intoleratnce Hematologic: denies easy bleeding Allergy: denies hives [facility] Medical History Anxiety and depression Bile salt-induced diarrhea Calculus of left kidney Cholecystectomy planned Constipation Essential tremor GERD (gastroesophageal reflux disease) Hepatitis History of duodenal ulcer Hypercholesterolemia Irritable bowel syndrome Liver hemangioma Osteoarthritis Osteoporosis Right knee meniscal tear Sjogren's syndrome Umbilical hernia Family History Father Hypertension Prostate cancer Mother Hypertension Diabetes Dementia Maternal Aunt Gastric cancer Paternal Aunt Gastric cancer Ovarian cancer Paternal Uncle Myocardial infarction Family history: reviewed and not pertinent Surgical History Cataract H/O adenoidectomy History of appendectomy History of cholecystectomy History of eyelid surgery History of knee surgery Social History Alcohol intake: never Smoking Status: Never smoker Use of substances other than those prescribed or required for medical reasons: No Advance Directives: No Meds Allergies Allergy/AdvReac Type Severity Reaction Status Date / Time lamotrigine [From LAMICTAL] Allergy Intermediate RASH Verified 08/16/20 00:53 Sulfa (Sulfonamide Allergy Intermediate UNKNOWN, Verified 08/16/20 00:53 Antibiotics) upset [SULFA (SULFONAMIDE stomach ANTIBIOTICS)] codeine [CODEINE] Allergy Mild NAUSEA & Verified 08/16/20 00:53 VOMITING, nausea and vomiting penicillin V [PENICILLIN V] Allergy Mild NAUSEA & Verified 08/16/20 00:53 VOMITING, sick to stomach, nausea and vomiting ciprofloxacin [Cipro] Allergy Unknown sick to Verified 08/16/20 00:53 stomach Motrin Allergy Unknown sick to Verified 08/16/20 00:53 stomach, nausea and vomiting Home Medications Medication Instructions Recorded Confirmed Last Taken Type alendronate 70 mg tablet 70 mg PO QWEEK 04/15/20 08/16/20 Unknown History buspirone 15 mg tablet 15 mg PO BID 04/15/20 08/16/20 Unknown History cholecalciferol (vitamin D3) 25 25 mcg PO DAILY 04/15/20 08/16/20 Unknown History mcg (1,000 unit) capsule cyclosporine 0.09 % eye drops in a 1 drp OPHTHALMIC (EYE) Q12H 04/15/20 08/16/20 Unknown History dropperette duloxetine 30 mg capsule,delayed 90 mg PO DAILY 04/15/20 08/16/20 Unknown History release fluticasone propionate 50 2 spray INTRANASAL DAILY 04/15/20 08/16/20 Unknown History mcg/actuation nasal spray,suspension multivitamin 1 tab PO DAILY 04/15/20 08/16/20 Unknown History omega-3 fatty acids 1,000 mg 1,000 mg PO DAILY 04/15/20 08/16/20 Unknown History capsule simvastatin 5 mg tablet 5 mg PO DAILY 04/15/20 08/16/20 Unknown History trazodone 100 mg tablet 100 mg PO BEDTIME PRN 04/15/20 08/16/20 Unknown History Physical Exam Vital Signs and Narrative: Vital Signs: Last Vital Signs Temp 99.3 F 08/16/20 00:45 Pulse 80 08/16/20 08:00 Resp 16 08/16/20 08:00 BP 128/62 08/16/20 05:54 Pulse Ox 98 08/16/20 08:00 Body Mass Index 23.8 General: no acute distress HEENT: atraumatic Neck: normal to visual inspection CVS: S1, S2, RRR Resp: CTA bilateral Chest: non tender GI: soft, mild epigastric tenderness, non distended : no CVA tenderness Skin: no rashes Extremities: no edema Neuro: Oriented X3, grossly intact Psych: cooperative, Results Labs CBC and Chem 7: 08/16/20 02:15 08/16/20 02:15 Labs: Laboratory Results - last 24 hr 08/16/20 08/16/20 08/16/20 02:15 02:15 02:15 MCV 94.5 MCH 32.3 MCHC 34.1 RDW 13.0 Plt Count 194 MPV 9.0 L Immature Gran % (Auto) 0.4 Neut % (Auto) 83.2 H Lymph % (Auto) 9.1 L Gibson % (Auto) 7.0 Eos % (Auto) 0.2 Baso % (Auto) 0.1 Lymph # (Auto) 0.8 L Gibson # (Auto) 0.6 Eos # (Auto) 0.0 Baso # (Auto) 0.0 Abs Immat Gran (auto) 0.03 Absolute Neuts (auto) 6.9 Absolute Nucleated RBC 0.000 Nucleated RBC % (auto) 0.0 PT INR Anion Gap 14 Estim Creat Clear Calc 53.6 Estimated GFR > 60 Random Glucose 115 Calcium 9.0 Total Bilirubin 1.5 H Direct Bilirubin 1.0 H AST 1029 H ALT 598 H Alkaline Phosphatase 97 D Troponin I High Sens < 3.5 Total Protein 7.0 Albumin 4.2 Lipase 10 Acetaminophen COVID-19 (ALEX) COVID-19 Clin Com 08/16/20 08/16/20 08/16/20 08:56 09:05 09:05 MCV MCH MCHC RDW Plt Count MPV Immature Gran % (Auto) Neut % (Auto) Lymph % (Auto) Gibson % (Auto) Eos % (Auto) Baso % (Auto) Lymph # (Auto) Gibson # (Auto) Eos # (Auto) Baso # (Auto) Abs Immat Gran (auto) Absolute Neuts (auto) Absolute Nucleated RBC Nucleated RBC % (auto) PT 12.1 INR 1.0 Anion Gap Estim Creat Clear Calc Estimated GFR Random Glucose Calcium Total Bilirubin Direct Bilirubin AST ALT Alkaline Phosphatase Troponin I High Sens Total Protein Albumin Lipase Acetaminophen Cancelled COVID-19 (ALEX) Negative COVID-19 Clin Com See Note Imaging Radiologist's Impressions: Impressions Abdomen/Pelvis CT 08/16/20 04:40 IMPRESSION: No acute findings in the abdomen or pelvis. No inflammatory changes. Cholecystectomy. Assessment and Plan (1) Abdominal pain, epigastric: Status: Acute 70F presented with epigastric pain Epigastric pain complicated by transaminitis. Second episode, 1st episode very similar 2013. Possibly some type of viral hepatitis Patient states her abdominal pain has improved and would like to start solid diet. 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
[2020-08-16 09:51] LABS: Alanine Aminotransferase 966 U/L (0-31); Albumin Level 3.8 g/dL (3.5-5.0); Alkaline Phosphatase 107 U/L (39-117); Anion Gap 13 (12-20); Aspartate Amino Transferase 1336 U/L (5-31); Bilirubin Total 2.8 mg/dL (0.0-1.0); Blood Urea Nitrogen 13 mg/dL (9-16); Calcium 8.7 mg/dL (8.4-10.2); Carbon Dioxide 26 mmol/L (22-29); Chloride 105 mmol/L (96-108); Creatinine Clr Calc Pharmacy 54.4; Estimated Glomerular Filt Rate > 60; Glucose Random 112 mg/dL (60-115); Potassium 3.5 mmol/L (3.3-5.1); Sodium 140 mmol/L (135-145); Total Protein 6.4 g/dL (6.5-8.0)
[2020-08-16 09:52] LABS: Acetaminophen LAB < 1 mcg/mL (<30)
[2020-08-16] MEDS: 0.9 % Sodium Chloride Flush 3 ML SYRINGE IVFLUSH ×2 (20:12→23:50)
[2020-08-16] MEDS: Enoxaparin Sodium 40 MG/0.4 ML SYRINGE SUBCUT (20:19)
[2020-08-16] MEDS: busPIRone HCl 5 MG TABLET 15 MG PO (20:19)
--- NOTE | 2020-08-16 20:41 | PC.NURSE ---
FLOOR UNABLE TO TAKE REPORT AT THIS TIME.
--- NOTE | 2020-08-16 21:03 | P.CNGI_ITS ---
History of Present Illness Data of Consult Service Date: 08/16/20 Requesting physician: Helder Valdez Primary Care Provider: Darwin Hopper MD HPI Reason for consult: abn lft, abdo pain 70-year-old female w/ hx of sjogrens, cholecystectomy, migraine and kidney stones who i am asked to see for eval of abdominal pain and abn LFT She had sudden onset of RUQ pain 10/10 severity 1 d ago with radiation into the back and nausea but no emesis. Worse with food and drink.Denies lower abdominal pain or diarrhea. no fever or chills, no jaundice. no suspicious food or sick contacts, travel. She denies alcohol intake. No new meds, Pain has gone now but transaminases elevated, imaging nml, with no cbd dilation or liver abn, acetaminophen level neg. She did admits a prior severe attack 2013 and had negative w/u a time inc mri. Last several LFT prior to this admission going to 2019 were nml. She does admit to getting similar milder forms of pain for the last 5 years which last for 30 mins usu if eats chocolate or ice cream, happen few times a week Review of Systems Review of Systems: Constitutional: Denies fever, postive Chills Eyes: denies blurry vision ENT: denies sore throat CVS: denies chest pain Respiratory: Denies dyspnea GI: abdominal pain : denies dysuria MSK: denies neck pain Skin: denies rash Neuro: denies specific motor weakness Psych: denies suicidal ideation Endocrine: denies heat/cold intoleratnce Hematologic: denies easy bleeding Allergy: denies hives PMFSH Past Medical History Medical History Anxiety and depression Bile salt-induced diarrhea Calculus of left kidney Cholecystectomy planned Constipation Essential tremor GERD (gastroesophageal reflux disease) Hepatitis History of duodenal ulcer Hypercholesterolemia Irritable bowel syndrome Liver hemangioma Osteoarthritis Osteoporosis Right knee meniscal tear Sjogren's syndrome Umbilical hernia Family History Family History Father Hypertension Prostate cancer Mother Hypertension Diabetes Dementia Maternal Aunt Gastric cancer Paternal Aunt Gastric cancer Ovarian cancer Paternal Uncle Myocardial infarction Family history: reviewed and not pertinent Surgical History Surgical History Cataract H/O adenoidectomy History of appendectomy History of cholecystectomy History of eyelid surgery History of knee surgery Social History Social History Alcohol intake: never Smoking Status: Never smoker Use of substances other than those prescribed or required for medical reasons: No Advance Directives: No Meds Allergies Allergy/AdvReac Type Severity Reaction Status Date / Time lamotrigine [From LAMICTAL] Allergy Intermediate RASH Verified 08/16/20 00:53 Sulfa (Sulfonamide Allergy Intermediate UNKNOWN, Verified 08/16/20 00:53 Antibiotics) upset [SULFA (SULFONAMIDE stomach ANTIBIOTICS)] codeine [CODEINE] Allergy Mild NAUSEA & Verified 08/16/20 00:53 VOMITING, nausea and vomiting penicillin V [PENICILLIN V] Allergy Mild NAUSEA & Verified 08/16/20 00:53 VOMITING, sick to stomach, nausea and vomiting ciprofloxacin [Cipro] Allergy Unknown sick to Verified 08/16/20 00:53 stomach Motrin Allergy Unknown sick to Verified 08/16/20 00:53 stomach, nausea and vomiting Active Medications: Current Medications Generic Name Dose Route Start Last Admin Trade Name Freq PRN Reason Stop Dose Admin Buspirone HCl 15 mg 08/16/20 21:00 08/16/20 20:19 Buspirone Hcl 5 Mg Tablet PO 15 mg BID KYA Administration Duloxetine HCl 90 mg 08/17/20 09:00 Duloxetine Hcl 30 Mg Capsule. PO DAILY [facility] Enoxaparin Sodium 40 mg 08/16/20 21:00 08/16/20 20:19 Enoxaparin Sodium 40 Mg/0.4 Ml Syringe SUBCUT 40 mg Q24H KYA Administration Multivitamins/Vitamin C 1 tab 08/17/20 09:00 Multivitamin Tablet PO DAILY [facility] Non-Formulary Medication 1 drop 08/16/20 20:07 Cyclosporine [Cequa] EYE-BOTH Q12H [facility] Omeprazole 20 mg 08/17/20 06:30 Omeprazole 20 Mg Capsule. PO DAILY@0630 [facility] Sodium Chloride 3 ml 08/16/20 20:07 08/16/20 20:12 0.9 % Sodium Chloride Flush 3 Ml Syringe IVFLUSH 3 ml QSHIFT KYA Administration Trazodone HCl 100 mg 02/20/21 20:07 Trazodone Hcl 100 Mg Tablet PO BEDTIME PRN Insomnia Vitamin D 25 mcg 08/17/20 09:00 Cholecalciferol (Vitamin D3) 25 Mcg Tablet PO DAILY [facility] Home Medications Medication Instructions Recorded Confirmed Last Taken Type alendronate 70 mg tablet 70 mg PO QWEEK 04/15/20 08/16/20 Unknown History buspirone 15 mg tablet 15 mg PO BID 04/15/20 08/16/20 Unknown History cholecalciferol (vitamin D3) 25 25 mcg PO DAILY 04/15/20 08/16/20 Unknown H istory mcg (1,000 unit) capsule cyclosporine 0.09 % eye drops in a 1 drp OPHTHALMIC (EYE) Q12H 04/15/20 08/16/20 Unknown History dropperette duloxetine 30 mg capsule,delayed 90 mg PO DAILY 04/15/20 08/16/20 Unknown History release fluticasone propionate 50 2 spray INTRANASAL DAILY 04/15/20 08/16/20 Unknown History mcg/actuation nasal spray,suspension multivitamin 1 tab PO DAILY 04/15/20 08/16/20 Unknown History omega-3 fatty acids 1,000 mg 1,000 mg PO DAILY 04/15/20 08/16/20 Unknown History capsule simvastatin 5 mg tablet 5 mg PO DAILY 04/15/20 08/16/20 Unknown History trazodone 100 mg tablet 100 mg PO BEDTIME PRN 04/15/20 08/16/20 Unknown History Physical Exam Vital Signs: Vital Signs: Last Vital Signs Temp 99.3 F 08/16/20 00:45 Pulse 89 08/16/20 18:08 Resp 14 08/16/20 18:08 BP 105/56 L 08/16/20 18:08 Pulse Ox 97 08/16/20 18:08 Body Mass Index 23.8 Const: General: cooperative and no acute distress Orientation/cons ciousness: patient oriented x3 Eyes: General: appearance normal, both eyes and all related structures Resp: Effort & Inspection: normal respiratory effort Auscultation: clear to auscultation bilaterally, no rubs and vesicular breath sounds tactile fremitus present: tactile fremitus absent Cardio: Rate: regular rate Rhythm: regular rhythm Heart sounds: S1 normal heart sound present and S2 normal heart sound present GI: Inspection: Yes normal to inspection Percussion: Yes normal to perc ussion and No tympanic to percussion Auscultation: normal bowel sounds : General: Yes Bimanual renal exam normal bilaterally Skin: General skin exam: no rashes or lesions noted Neuro: General: patient oriented x3 Extrem: General: Yes normal to inspection Psych: Appearance: grossly normal Results Labs CBC & Chem 7: 08/16/20 09:05 08/16/20 09:06 Labs: Short CBC 08/16/20 08/16/20 Range/Units 02:15 09:05 WBC 8.3 7.1 (4.8-10.8) X10*3/uL Hgb 14.0 13.4 (12.0-16.0) g/dl Hct 41.0 38.9 (37-47) % Plt Count 194 199 (160-400) X10*3/uL BMP 08/16/20 08/16/20 02:15 09:06 Sodium 139 140 Potassium 3.8 3.5 Chloride 103 105 Carbon Dioxide 26 26 BUN 15 13 Creatinine 0.75 0.74 Calcium 9.0 8.7 Cardiac Enzymes 08/16/20 Range/Units 09:05 Total Creatine Kinase 87 (26-140) U/L Liver Function 08/16/20 08/16/20 Range/Units 02:15 09:06 Total Bilirubin 1.5 H 2.8 H (0.0-1.0) mg/dL Direct Bilirubin 1.0 H 2.0 H (0.0-0.5) mg/dL AST 1029 H 1336 H (5-31) U/L ALT 598 H 966 H (0-31) U/L Alkaline Phosphatase 97 D 107 (39-117) U/L Albumin 4.2 3.8 (3.5-5.0) g/dL Assessment and Plan (1) Acute hepatitis: Status: Acute (2) RUQ abdominal pain: Status: Acute 70F presented with ruq pain and abn LFT with chronic low level ruq pain over the years, ddx: retained cbd stone, SOD dysfunction type II, budd chiari, infectious etiology, drug induced injury from statin, autoimmune anuj with hx of sjogrens PLAN; 1/ trend LFT and INR bid, INR is nml which is reassuring 2/ portal and IVC doppler and us to r/o budd chiari 3/ await infectious work up 4/ MRCP to check for cbd stone 5/ trial 10 mg PO bentyl BID to see if reduces her attacks, 6/ may need liver bx if LFT worsen 7/ check celiac serology, YASMINE, SMA< ANCA, and LKM antibodies, IgG, SMA, GGT
--- NOTE | 2020-08-16 21:18 | PC.NURSE ---
REPORT GIVEN TO RN ON IMC. PT TO FLOOR AT THIS TIME. HL FLUSHES EASILY WITHOUT RESISTANCE. PT LEFT ED IN NAD AT THIS TIME.
[2020-08-16] MEDS: traZODone HCL 100 MG TABLET PO (23:48)
[2020-08-17 03:35] VITALS: BP 106/54; PULSE 74; RESP 18; TEMP 36.9; O2SAT 98
[2020-08-17] MEDS: Omeprazole 20 MG CAPSULE.DR PO (06:27)
[2020-08-17 07:04] LABS: MANUAL DIFF FLAG NO
[2020-08-17 07:15] LABS: Basophils Percent Auto 0.5 % (0-2); Eosinophils Absolute Auto 0.4 X10*3/uL (0.0-0.4); Eosinophils Percent Auto 7.4 % (0-4); Hematocrit 39.9 % (37-47); Hemoglobin 13.3 g/dl (12.0-16.0); Imm Gran Abs Auto 0.02 X10*3/uL (0.00-0.03); Imm Gran Pct Auto 0.4 % (0.0-0.4); Lymphocytes Absolute Auto 1.4 X10*3/uL (1.2-4.9); Lymphocytes Percent Auto 25.2 % (20-40); Mean Corpuscular HGB Conc 33.3 g/dl (31.0-35.0); Mean Corpuscular Hemoglobin 31.7 pg (27.0-33.0); Mean Corpuscular Volume 95.2 fL (80-98); Monocytes Absolute Auto 0.8 X10*3/uL (0.1-1.2); Monocytes Percent Auto 13.6 % (2-11); Neutrophils Absolute Auto 2.9 X10*3/uL (2.0-8.3); Neutrophils Percent Auto 52.9 % (45-73); Platelet Count 192 X10*3/uL (160-400); Red Blood Count 4.19 X10*6/uL (4.20-5.50); Red Cell Distribution Width 13.3 % (11.0-16.0); White Blood Count 5.5 X10*3/uL (4.8-10.8)
[2020-08-17 07:43] LABS: Anion Gap 13 (12-20); Blood Urea Nitrogen 20 mg/dL (9-16); Calcium 8.8 mg/dL (8.4-10.2); Carbon Dioxide 27 mmol/L (22-29); Chloride 107 mmol/L (96-108); Cholesterol 175 mg/dL; Creatinine Clr Calc Pharmacy 53.6; Estimated Glomerular Filt Rate > 60; Glucose Random 97 mg/dL (60-115); HDL Cholesterol 59 mg/dL; LDL Cholesterol Calculated 98 mg/dl; Potassium 3.9 mmol/L (3.3-5.1); Sodium 143 mmol/L (135-145); Triglycerides 90 mg/dL
[2020-08-17 08:06] LABS: Alanine Aminotransferase 812 U/L (0-31); Albumin Level 3.7 g/dL (3.5-5.0); Alkaline Phosphatase 118 U/L (39-117); Aspartate Amino Transferase 562 U/L (5-31); Bilirubin Direct 0.4 mg/dL (0.0-0.5); Bilirubin Total 0.8 mg/dL (0.0-1.0); Total Protein 6.2 g/dL (6.5-8.0)
[2020-08-17] MEDS: Cholecalciferol (Vitamin D3) 25 MCG TABLET PO (08:23)
[2020-08-17] MEDS: DULoxetine HCl 30 MG CAPSULE.DR 90 MG PO (08:23)
[2020-08-17] MEDS: busPIRone HCl 5 MG TABLET 15 MG PO ×2 (08:23→20:33)
[2020-08-17] MEDS: Multivitamin TABLET 1 TAB PO (08:23)
[2020-08-17] MEDS: 0.9 % Sodium Chloride Flush 3 ML SYRINGE IVFLUSH ×3 (08:23→23:54)
[2020-08-17 08:28] VITALS: BP 118/64; PULSE 85; RESP 20; TEMP 36.2; O2SAT 94
--- NOTE | 2020-08-17 10:07 | MHC.CM.PN ---
CM MET WITH PT WHO REPORTS SHE LIVES AT HOME WITH HER AND IS FULLY INDEPENDENT WITH CARE AND MOBILITY. PT REPORTS SHE HAS NO IN HOME SERVICES AND NO DME. PT DID NOT HAVE A HCP BUT DID COMPLETE ONE TODAY NAMING HER , JENNIFER ([phone]) HER AGENT. PT ALSO TOOK A BLANK HCP TO COMPLETE AT A LATER TIME SHE WOULD PREFER TO ALSO HAVE AN ALTERNATE AGENT LISTED BUT DOES NOT KNOW WHO IT WILL BE. PT REPORTS SHE IS UNSURE IF SHE WILL DC TODAY. PT REPORTS SHE NEEDS AN MRI BUT IS ANXIOUS ABOUT HAVING IT HERE. SHE REPORTS SHE WOULD LIKE TO HAVE IT DONE AT [facility] BECAUSE THEY HAVE THE OPEN MRI BUT SHE IS WORRIED SHE WILL NOT BE ABLE TO GET IT DONE THERE SOON AND DOES NOT WANT TO PUT IT OFF. AFTER SOME DISCUSSION PT REPORTS SHE WILL TRY TO DO THE MRI HERE SHE KNOWS IT IS VERY IMPORTANT. CM PROVIDED CONTACT INFORMATION AND INVITED PT TO CALL IF SHE HAD QUESTIONS OR CONCERNS. IMM WAS REVIEWED AND PT INDICATED UNDERSTANDING, COPY GIVEN. PTS CURRENT DC PLAN IS HOME WITH NO SERVICES PTS WILL BE PICKING HER UP AT ME.
--- NOTE | 2020-08-17 10:32 | P.PNIM_ITS ---
Subjective Subjective Date of Service: 08/17/20 Interval History: feeling better Cardiovascular Cardiovascular: Reports no additional cardiovascular complaints Respiratory Respiratory: Reports no additional respiratory complaints Physical Exam Vital Signs: Vital Signs: Last Vital Signs Temp 97.1 F 08/17/20 08:28 Pulse 85 08/17/20 08:28 Resp 20 08/17/20 08:28 BP 118/64 08/17/20 08:28 Pulse Ox 94 08/17/20 08:28 Body Mass Index 23.8 General: AO X 3, no acute distress Resp: CTA bilateral CVS: S1,S2,RRR GI: soft, non tender, non distended Neuro: motor grossly intact Psych: appropriate affect Objective Data Current Medications Generic Name Dose Route Start Last Admin Trade Name Freq PRN Reason Stop Dose Admin Buspirone HCl 15 mg 08/16/20 21:00 08/17/20 08:23 Buspirone Hcl 5 Mg Tablet PO 15 mg BID KYA Administration Duloxetine HCl 90 mg 08/17/20 09:00 08/17/20 08:23 Duloxetine Hcl 30 Mg Capsule. PO 90 mg DAILY KYA Administration Enoxaparin Sodium 40 mg 08/16/20 21:00 08/16/20 20:19 Enoxaparin Sodium 40 Mg/0.4 Ml Syringe SUBCUT 40 mg Q24H KYA Administration Multivitamins/Vitamin C 1 tab 08/17/20 09:00 08/17/20 08:23 Multivitamin Tablet PO 1 tab DAILY KYA Administration Non-Formulary Medication 1 drop 08/16/20 20:07 Cyclosporine [Cequa] EYE-BOTH Q12H [facility] Omeprazole 20 mg 08/17/20 06:30 08/17/20 06:27 Omeprazole 20 Mg Capsule. PO 20 mg DAILY@0630 [facility] Administration Oxycodone HCl 5 mg 08/16/20 22:36 Oxycodone Hcl Immed Release 5 Mg Tablet PO Q6H PRN Breakthrough Pain Sodium Chloride 3 ml 08/16/20 20:07 08/17/20 08:23 0.9 % Sodium Chloride Flush 3 Ml Syringe IVFLUSH 3 ml QSHIFT KYA Administration Trazodone HCl 100 mg 08/16/20 20:07 08/16/20 23:48 Trazodone Hcl 100 Mg Tablet PO 100 mg BEDTIME PRN Administration Insomnia Vitamin D 25 mcg 08/17/20 09:00 08/17/20 08:23 Cholecalciferol (Vitamin D3) 25 Mcg Tablet PO 25 mcg DAILY KYA Administration Labs CBC & Chem 7: 08/17/20 05:36 08/17/20 05:36 Assessment and Plan (1) Abdominal pain, epigastric: Status: Acute Assessment and Plan: 70F presented with epigastric pain Epigastric pain complicated by transaminitis. Second episode, 1st episode very similar 2013. differential includes sphincter of karen dysfunction vs microlithiasis vs viral hepatitis start bentyl mrcp Monitor LFTs Hold statin Depression/anxiety Cymbalta, buspar, trazodone GERD Prilosec Sjogren's Continue eyedrops Osteoporosis Hold alendronate
[2020-08-17 15:18] VITALS: BP 133/63; PULSE 92; RESP 16; TEMP 36; O2SAT 99
[2020-08-17 19:06] VITALS: BP 125/62; PULSE 88; RESP 18; TEMP 36.1; O2SAT 97
[2020-08-17] MEDS: Enoxaparin Sodium 40 MG/0.4 ML SYRINGE SUBCUT (20:33)
[2020-08-17] MEDS: traZODone HCL 100 MG TABLET PO (23:57)
[2020-08-17] MEDS: Simethicone 80 MG TAB.CHEW PO (23:57)
[2020-08-18] VITALS: BP 126/79; PULSE 87; RESP 18; TEMP 36.4; O2SAT 98
[2020-08-18 03:36] LABS: HBS Num1 1.35 mIU/mL (0-7.99); HBc Num1 0.04 S/CO (0.00-0.79); HBsAGNum1 0.15 S/CO (0.00-0.99); Hepatitis B Core Antibody Nonreactive (Nonreactive); Hepatitis B Surface Antigen Negative (Negative); ~HepC Num1 0.09 S/CO (0.00-0.79); ~Hepatitis B Surface Antibody NONREACTIVE (Nonreactive); ~Hepatitis C Antibody Nonreactive (Nonreactive)
[2020-08-18 05:06] VITALS: BP 113/66; PULSE 86; RESP 18; TEMP 36.6; O2SAT 95
[2020-08-18 06:39] LABS: Alanine Aminotransferase 469 U/L (0-31); Albumin Level 3.4 g/dL (3.5-5.0); Alkaline Phosphatase 98 U/L (39-117); Anion Gap 10 (12-20); Aspartate Amino Transferase 166 U/L (5-31); Bilirubin Direct 0.2 mg/dL (0.0-0.5); Bilirubin Total 0.4 mg/dL (0.0-1.0); Blood Urea Nitrogen 22 mg/dL (9-16); Calcium 8.7 mg/dL (8.4-10.2); Carbon Dioxide 29 mmol/L (22-29); Chloride 107 mmol/L (96-108); Creatinine Clr Calc Pharmacy 58.3; Estimated Glomerular Filt Rate > 60; Glucose Fasting 96 mg/dL (60-99); Potassium 3.9 mmol/L (3.3-5.1); Sodium 142 mmol/L (135-145); Total Protein 5.7 g/dL (6.5-8.0)
[2020-08-18 07:04] VITALS: BP 110/86; PULSE 84; RESP 14; TEMP 36.7; O2SAT 96
[2020-08-18] MEDS: Multivitamin TABLET 1 TAB PO (07:23)
[2020-08-18] MEDS: busPIRone HCl 5 MG TABLET 15 MG PO (07:24)
[2020-08-18] MEDS: Cholecalciferol (Vitamin D3) 25 MCG TABLET PO (07:24)
[2020-08-18] MEDS: DULoxetine HCl 30 MG CAPSULE.DR 90 MG PO (07:24)
[2020-08-18] MEDS: 0.9 % Sodium Chloride Flush 3 ML SYRINGE IVFLUSH (07:25)
[2020-08-18] MEDS: LORazepam 2 MG/ML VIAL IVPUSH (08:49)
--- NOTE | 2020-08-18 11:06 | MHC.CM.PN ---
per multi dis rounds dc plan home today no servceis are indicated
--- NOTE | 2020-08-18 11:46 | MHC.CM.PN ---
per rounds dc anticaped later today ,home no services is the plaN
[2020-08-18 12:15] VITALS: BP 96/52; PULSE 69; RESP 14; O2SAT 96
--- NOTE | 2020-08-18 13:42 | PM.GIPN ---
Subjective Subjective Date of Service: 08/18/20 Interval History: Groggy from ativan No complaints of abd pain Physical Exam Vital Signs: Vital Signs: Last Vital Signs Temp 98.0 F 08/18/20 07:04 Pulse 69 08/18/20 12:15 Resp 14 08/18/20 12:15 BP 96/52 L 08/18/20 12:15 Pulse Ox 96 08/18/20 12:15 Body Mass Index 23.8 Const: General: no acute distress GI: Other: abdomen is soft and nontender Skin: Other: anicteric Objective Data Labs CBC & Chem 7: 08/17/20 05:36 08/18/20 05:22 Labs: Laboratory Results - last 24 hr 08/16/20 08/18/20 06:23 05:22 Sodium 142 Potassium 3.9 Chloride 107 Carbon Dioxide 29 Anion Gap 10 L BUN 22 H Creatinine 0.69 Estim Creat Clear Calc 58.3 Estimated GFR > 60 Fasting Glucose 96 Calcium 8.7 Total Bilirubin 0.4 Direct Bilirubin 0.2 AST 166 H ALT 469 H Alkaline Phosphatase 98 Total Protein 5.7 L Albumin 3.4 L Hep Bs Antigen Negative Hep Bs Antibody NONREACTIVE Hep B Core Total Ab Nonreactive Hepatitis C Ab (EIA) Nonreactive Progress Note: A&P Assessment and plan (1) Elevated LFTs: Status: Acute Assessment and Plan: liver tests continue to improve mri negative for cbd pathology no need for ERCP at this time can discharge and f/u as outpatient Fall Risk Details Current Medications: Current Medications Generic Name Dose Route Start Last Admin Trade Name Freq PRN Reason Stop Dose Admin Buspirone HCl 15 mg 08/16/20 21:00 08/18/20 07:24 Buspirone Hcl 5 Mg Tablet PO 15 mg BID KYA Administration Dicyclomine HCl 10 mg 08/17/20 21:00 08/18/20 07:25 Dicyclomine Hcl 10 Mg Capsule PO Not Given BID KYA Duloxetine HCl 90 mg 08/17/20 09:00 08/18/20 07:24 Duloxetine Hcl 30 Mg Capsule. PO 90 mg DAILY KYA Administration Enoxaparin Sodium 40 mg 08/16/20 21:00 08/17/20 20:33 Enoxaparin Sodium 40 Mg/0.4 Ml Syringe SUBCUT 40 mg Q24H KYA Administration Multivitamins/Vitamin C 1 tab 08/17/20 09:00 08/18/20 07:23 Multivitamin Tablet PO 1 tab DAILY KYA Administration Non-Formulary Medication 1 drop 08/16/20 20:07 Cyclosporine [Cequa] EYE-BOTH Q12H KYA Omeprazole 20 mg 08/17/20 06:30 08/18/20 05:05 Omeprazole 20 Mg Capsule.Dr SHANNON Not Given DAILY@0630 KYA Oxycodone HCl 5 mg 08/16/20 22:36 Oxycodone Hcl Immed Release 5 Mg Tablet PO Q6H PRN Breakthrough Pain Simethicone 80 mg 08/17/20 22:42 08/17/20 23:57 Simethicone 80 Mg Tab.Chew PO 80 mg QIDWMHS PRN Administration Gas Sodium Chloride 3 ml 08/16/20 20:07 08/18/20 07:25 0.9 % Sodium Chloride Flush 3 Ml Syringe IVFLUSH 3 ml QSHIFT KYA Administration Trazodone HCl 100 mg 08/16/20 20:07 08/17/20 23:57 Trazodone Hcl 100 Mg Tablet PO 100 mg BEDTIME PRN Administration Insomnia Vitamin D 25 mcg 08/17/20 09:00 08/18/20 07:24 Cholecalciferol (Vitamin D3) 25 Mcg Tablet PO 25 mcg DAILY KYA Administration Time Spent With Patient Time: Total time spent is greater than 50% in coordination of care (as documented) at patient's floor/unit and/or counseling patient: Time with patient: 15 - 24 minutes Procedures Date of Service Date of Service: 08/18/20
--- NOTE | 2020-08-18 13:55 | PM.DS ---
DS: Providers Provider Date of Service: 08/18/20 Date of admission: 08/16/20 09:43 Primary care physician: Darwin Hopper MD Consults: 08/16/20 20:07 Consult to Gastroenterology Routine Consulting Provider: Brennan Steele Reason for consultation: transaminitis with abdominal pain, second episode, no clear etiology DS: Diagnosis Discharge Diagnosis (1) Elevated LFTs: Status: Acute (2) Acute hepatitis: Status: Acute DS: Medications Discharge Medications Home Medications: Home Medications Medication Instructions Recorded Confirmed alendronate 70 mg tablet 70 mg PO QWEEK 04/15/20 08/16/20 buspirone 15 mg tablet 15 mg PO BID 04/15/20 08/16/20 cholecalciferol (vitamin D3) 25 25 mcg PO DAILY 04/15/20 08/16/20 mcg (1,000 unit) capsule cyclosporine 0.09 % eye drops in a 1 drp OPHTHALMIC (EYE) Q12H 04/15/20 08/16/20 dropperette duloxetine 30 mg capsule,delayed 90 mg PO DAILY 04/15/20 08/16/20 release fluticasone propionate 50 2 spray INTRANASAL DAILY 04/15/20 08/16/20 mcg/actuation nasal spray,suspension multivitamin 1 tab PO DAILY 04/15/20 08/16/20 omega-3 fatty acids 1,000 mg 1,000 mg PO DAILY 04/15/20 08/16/20 capsule simvastatin 5 mg tablet 5 mg PO DAILY 04/15/20 08/16/20 trazodone 100 mg tablet 100 mg PO BEDTIME PRN 04/15/20 08/16/20 Previous Rx's Medication Instructions Recorded omeprazole 20 mg capsule,delayed 20 mg PO DAILY #90 cap 04/09/20 release dicyclomine 10 mg PO BID #60 cap 08/18/20 DS: Summary Hospital Course Hospital Course: Patient was admitted for elevated transaminases in the setting of severe epigastric pain concerning for acute hepatitis. Viral panel was negative (hep a still pending). MRCP was unremarkable. Portal vein was patent on ultrasound. Patient's pain and LFTs improved and she was able to tolerate solid diet. Possible etiology includes sphincter of Oddi dysfunction, therefore, patient will be started on Bentyl trial. Patient will be discharged home and follow up with GI as outpatient Time Spent with Patient Time attestation: Total time spent providing and/or coordinating discharge services: Discharge coordination time: Greater than 30 minutes Physical Exam Vital Signs: Vital Signs: Last Vital Signs Temp 98.0 F 08/18/20 07:04 Pulse 69 08/18/20 12:15 Resp 14 08/18/20 12:15 BP 96/52 L 08/18/20 12:15 Pulse Ox 96 08/18/20 12:15 Body Mass Index 23.8 General: AO X 3, no acute distress Resp: CTA bilateral CVS: S1,S2,RRR GI: soft, non tender, non distended Neuro: motor grossly intact Psych: appropriate affect DS: Data Data Completed and Pending Labs on day of discharge: Laboratory Results - last 24 hr 08/16/20 08/18/20 06:23 05:22 Sodium 142 Potassium 3.9 Chloride 107 Carbon Dioxide 29 Anion Gap 10 L BUN 22 H Creatinine 0.69 Estim Creat Clear Calc 58.3 Estimated GFR > 60 Fasting Glucose 96 Calcium 8.7 Total Bilirubin 0.4 Direct Bilirubin 0.2 AST 166 H ALT 469 H Alkaline Phosphatase 98 Total Protein 5.7 L Albumin 3.4 L Hep Bs Antigen Negative Hep Bs Antibody NONREACTIVE Hep B Core Total Ab Nonreactive Hepatitis C Ab (EIA) Nonreactive Discharge Plan Discharge Patient Disposition: Home, Self-Care Referrals: Po,Darwin Wasserman MD [Primary Care Provider] - Discharge Medications: New dicyclomine 10 mg Capsule 10 mg PO BID Qty: 60 RF: 0 Continued omeprazole 20 mg capsule,delayed release(DR/EC) 20 mg PO DAILY Qty: 90 RF: 3 omega-3 fatty acids 1,000 mg capsule 1,000 mg PO DAILY RF: 0 cholecalciferol (vitamin D3) 25 mcg (1,000 unit) capsule 25 mcg PO DAILY RF: 0 multivitamin Tablet 1 tab PO DAILY RF: 0 Cequa 0.09 % dropperette 1 drp ophthalmic (eye) Q12H RF: 0 fluticasone propionate 50 mcg/actuation spray,suspension 2 spray intranasal DAILY RF: 0 buspirone 15 mg tablet 15 mg PO BID RF: 0 alendronate [Fosamax] 70 mg tablet 70 mg PO QWEEK RF: 0 trazodone 100 mg tablet 100 mg PO BEDTIME PRN (Reason: Insomnia) RF: 0 duloxetine [Cymbalta] 30 mg capsule,delayed release(DR/EC) 90 mg PO DAILY RF: 0 simvastatin 5 mg tablet 5 mg PO DAILY RF: 0 Discharge Orders: Discharge Order (Routine); Ordered 08/18/20 Ordered By: Helder Valdez Activity on Discharge: As tolerated Stand Alone Forms: Patient Portal Discharge page Care Plan Goals: recovery Health Concerns: lfts Plan of Treatment: trial of bentyl, follow up gi
[2020-08-21 08:55] LABS: Hepatitis A Antibody IgM 0.08 Index (0-0.79); ~Hepatitis A Antibody IgM Nonreactive (Nonreactive)
== END 2020-08-18 17:01 | disposition home or self-care (01) | DRG 443 ==
LOC: HO.ED 06:58 → HO.EDOVER 09:51 → HO.IMC 20:22
PROVIDERS: Admitting Provider Internal Medicine; Emergency Provider Emergency Medicine; PCP Internal Medicine; Visit Provider Internal Medicine
DX: B17.9 Acute viral hepatitis, unspecified (principal); F41.9 Anxiety disorder, unspecified; F32.9 Major depressive disorder, single episode, unspecified; K21.9 Gastro-esophageal reflux disease without esophagitis; M81.0 Age-related osteoporosis without current pathological fracture; M35.00 Sjogren syndrome, unspecified; Z20.822 Contact with and (suspected) exposure to COVID-19; Z87.442 Personal history of urinary calculi; Z88.0 Allergy status to penicillin; Z88.2 Allergy status to sulfonamides; Z88.6 Allergy status to analgesic agent; Z79.51 Long term (current) use of inhaled steroids; Z79.83 Long term (current) use of bisphosphonates; Z79.899 Other long term (current) drug therapy
CPT/HCPCS: 36415; 74176; 74181; 76705; 80048; 80061; 80076; 80143; 82550; 83690; 84484; 85025; 85027; 85610; 86704; 86706; 86709; 86803; 87340; 87635; 93005; 93975; 96374; 99285; J1650; J2060

== ENCOUNTER 2020-08-29 17:24 | Outpatient (REF) | payer MEDICARE, SELFPAY ==
[2020-08-29 19:32] LABS: Alanine Aminotransferase 61 U/L (0-31); Albumin Level 4.2 g/dL (3.5-5.0); Alkaline Phosphatase 74 U/L (39-117); Anion Gap 10 (12-20); Aspartate Amino Transferase 28 U/L (5-31); Bilirubin Total 0.4 mg/dL (0.0-1.0); Blood Urea Nitrogen 14 mg/dL (9-16); Calcium 9.4 mg/dL (8.4-10.2); Carbon Dioxide 34 mmol/L (22-29); Chloride 102 mmol/L (96-108); Estimated Glomerular Filt Rate > 60; Glucose Random 97 mg/dL (60-115); Potassium 4.4 mmol/L (3.3-5.1); Sodium 142 mmol/L (135-145)
== END 2020-08-29 17:25 | disposition home or self-care (01) ==
LOC: HO.LAB 17:24
PROVIDERS: PCP Internal Medicine; Visit Provider Internal Medicine
DX: B17.9 Acute viral hepatitis, unspecified (principal)
CPT/HCPCS: 36415; 80053

== ENCOUNTER 2020-09-03 12:31 | Day surgery (SDC) | payer MEDICARE, SELFPAY ==
--- NOTE | 2020-09-02 08:20 | HO.ANESPROP2 ---
HPI - Anesthesia Eval Consult details Narrative: 70yo F for Colonoscopy [place]18[place] [facility] [place]amin[place]. Neg w/u with MRCP PMFSH Active Problems Active Problems: All Active Problems (Updated 08/18/20 @ 13:44 by Zoltan Vazquez) Elevated LFTs (Acute) RUQ abdominal pain (Acute) Abdominal pain, epigastric (Acute) Acute hepatitis (Acute) Migraine (Acute) Sjogren's syndrome (Acute) Headache (Acute) Cramps of right lower extremity (Acute) GERD (gastroesophageal reflux disease) (Acute) Hypercholesterolemia (Acute) Nephrolithiasis (Acute) Pain in lower back (Acute) Constipation (Acute) Groin pain, chronic, left (Acute) Anxiety and depression (Acute) Past Medical History Medical History (Updated 09/03/20 @ 13:00 by Destiny Mccain RN) Anxiety and depression Bile salt-induced diarrhea Calculus of left kidney Cholecystectomy planned Constipation Essential tremor GERD (gastroesophageal reflux disease) Hepatitis History of duodenal ulcer Hypercholesterolemia Irritable bowel syndrome Liver hemangioma Osteoarthritis Osteoporosis Right knee meniscal tear Sjogren's syndrome Trigger finger of right hand Umbilical hernia Family History Family History Father Hypertension Prostate cancer Mother Hypertension Diabetes Dementia Maternal Aunt Gastric cancer Paternal Aunt Gastric cancer Ovarian cancer Paternal Uncle Myocardial infarction Surgical History Surgical History (Updated 09/03/20 @ 13:01 by Destiny Mccain RN) Cataract H/O adenoidectomy History of appendectomy History of cholecystectomy History of eyelid surgery History of knee surgery Hx of tonsillectomy Social History Social History Household Members: Spouse Housing: House Alcohol intake: never Smoking Status: Never smoker Use of substances other than those prescribed or required for medical reasons: No Advance Directives: No Advance Directives Information Provided: Yes service: No Current occupational status: retired Meds Allergies Allergy/AdvReac Type Severity Reaction Status Date / Time lamotrigine [From LAMICTAL] Allergy Intermediate RASH Verified 08/16/20 00:53 Sulfa (Sulfonamide Allergy Intermediate UNKNOWN, Verified 08/16/20 00:53 Antibiotics) upset [SULFA (SULFONAMIDE stomach ANTIBIOTICS)] codeine [CODEINE] Allergy Mild NAUSEA & Verified 08/16/20 00:53 VOMITING, nausea and vomiting penicillin V [PENICILLIN V] Allergy Mild NAUSEA & Verified 08/16/20 00:53 VOMITING, sick to stomach, nausea and vomiting ciprofloxacin [Cipro] Allergy Unknown sick to Verified 08/16/20 00:53 stomach Motrin Allergy Unknown sick to Verified 08/16/20 00:53 stomach, nausea and vomiting Home Medications Medication Instructions Recorded Confirmed Last Taken Type buspirone 15 mg tablet 15 mg PO BID 04/15/20 08/21/20 Unknown History cholecalciferol (vitamin D3) 25 25 mcg PO DAILY 04/15/20 08/21/20 Unknown History mcg (1,000 unit) capsule cyclosporine 0.09 % eye drops in a 1 drp OPHTHALMIC (EYE) Q12H 04/15/20 08/21/20 Unknown History dropperette duloxetine 30 mg capsule,delayed 90 mg PO DAILY 04/15/20 08/21/20 Unknown History release fluticasone propionate 50 2 spray INTRANASAL DAILY 04/15/20 08/21/20 Unknown History mcg/actuation nasal spray,suspension multivitamin 1 tab PO DAILY 04/15/20 08/21/20 Unknown History omega-3 fatty acids 1,000 mg 1,000 mg PO DAILY 04/15/20 08/21/20 Unknown History capsule trazodone 100 mg tablet 100 mg PO BEDTIME PRN 04/15/20 08/21/20 Unknown History Exam Exam Date and Time: September 02, 2020 0820 Pertinent Lab Results Pertinent Lab Results: Laboratory Tests 08/17/20 08/29/20 05:36 17:35 WBC 5.5 Hgb 13.3 Hct 39.9 Plt Count 192 Sodium 142 Potassium 4.4 Chloride 102 Carbon Dioxide 34 H BUN 14 Creatinine 0.83 Total Bilirubin 0.4 AST 28 D ALT 61 H Alkaline Phosphatase 74 D Total Protein 7.0 D Albumin 4.2 D Narrative Narrative: EKG 07/2020 Normal sinus rhythm Normal ECG When compared with ECG of 30-JUL-2019 17:28, No significant change was found Assessment and Plan Assessment Anesthesia Assessment: Chart Reviewed
[2020-09-03 13:03] VITALS: BMI 22.6
[2020-09-03 13:05] VITALS: BP 130/82; PULSE 102; RESP 18; TEMP 36.4; O2SAT 97
[2020-09-03] MEDS: Lactated Ringers 1,000 ML 100 ML IVCONT (13:15)
--- NOTE | 2020-09-03 13:40 | P.CONAN_ITS ---
[facility] Active Problems Active Problems: All Active Problems (Updated 09/03/20 @ 13:00 by Destiny Mccain RN) Groin pain, chronic, left (Acute) Pain in lower back (Acute) Nephrolithiasis (Acute) Cramps of right lower extremity (Acute) Headache (Acute) Migraine (Acute) Abdominal pain, epigastric (Acute) Acute hepatitis (Acute) RUQ abdominal pain (Acute) Elevated LFTs (Acute) Sjogren's syndrome (Acute) GERD (gastroesophageal reflux disease) (Acute) Hypercholesterolemia (Acute) Constipation (Acute) Anxiety and depression (Acute) Past Medical History Medical History (Updated 09/03/20 @ 13:00 by Destiny Mccain RN) Anxiety and depression Bile salt-induced diarrhea Calculus of left kidney Cholecystectomy planned Constipation Essential tremor GERD (gastroesophageal reflux disease) Hepatitis History of duodenal ulcer Hypercholesterolemia Irritable bowel syndrome Liver hemangioma Osteoarthritis Osteoporosis Right knee meniscal tear Sjogren's syndrome Trigger finger of right hand Umbilical hernia Family History Family History Father Hypertension Prostate cancer Mother Hypertension Diabetes Dementia Maternal Aunt Gastric cancer Paternal Aunt Gastric cancer Ovarian cancer Paternal Uncle Myocardial infarction Surgical History Surgical History (Updated 09/03/20 @ 13:01 by Destiny Mccain RN) Cataract H/O adenoidectomy History of appendectomy History of cholecystectomy History of eyelid surgery History of knee surgery Hx of tonsillectomy Social History Social History Household Members: Spouse Housing: House Alcohol intake: never Smoking Status: Never smoker Use of substances other than those prescribed or required for medical reasons: No Advance Directives: No Advance Directives Information Provided: Yes service: No Current occupational status: retired Meds Allergies Allergy/AdvReac Type Severity Reaction Status Date / Time lamotrigine [From LAMICTAL] Allergy Intermediate RASH Verified 08/16/20 00:53 Sulfa (Sulfonamide Allergy Intermediate UNKNOWN, Verified 08/16/20 00:53 Antibiotics) upset [SULFA (SULFONAMIDE stomach ANTIBIOTICS)] codeine [CODEINE] Allergy Mild NAUSEA & Verified 08/16/20 00:53 VOMITING, nausea and vomiting penicillin V [PENICILLIN V] Allergy Mild NAUSEA & Verified 08/16/20 00:53 VOMITING, sick to stomach, nausea and vomiting ciprofloxacin [Cipro] Allergy Unknown sick to Verified 08/16/20 00:53 stomach Motrin Allergy Unknown sick to Verified 08/16/20 00:53 stomach, nausea and vomiting Active Medications: Current Medications Generic Name Dose Route Start Last Admin Trade Name Freq PRN Reason Stop Dose Admin Lactated Ringer's 1,000 mls @ 100 mls/hr 09/03/20 13:15 09/03/20 13:15 Lr IVCONT 100 mls/hr .Q10H KYA Administration Home Medications Medication Instructions Recorded Confirmed Last Taken Type buspirone 15 mg tablet 15 mg PO BID 04/15/20 08/21/20 Unknown History cholecalciferol (vitamin D3) 25 25 mcg PO DAILY 04/15/20 08/21/20 Unknown History mcg (1,000 unit) capsule cyclosporine 0.09 % eye drops in a 1 drp OPHTHALMIC (EYE) Q12H 04/15/20 08/21/20 Unknown History dropperette duloxetine 30 mg capsule,delayed 90 mg PO DAILY 04/15/20 08/21/20 Unknown History release fluticasone propionate 50 2 spray INTRANASAL DAILY 04/15/20 08/21/20 Unknown History mcg/actuation nasal spray,suspension multivitamin 1 tab PO DAILY 04/15/20 08/21/20 Unknown History omega-3 fatty acids 1,000 mg 1,000 mg PO DAILY 04/15/20 08/21/20 Unknown History capsule trazodone 100 mg tablet 100 mg PO BEDTIME PRN 04/15/20 08/21/20 Unknown History Exam Exam Date and Time: September 03, 2020 1340 Height,Weight and Vital Signs: Height 5 ft 1 in Weight 54.431 kg Last Vital Signs Temp 97.5 F 09/03/20 13:05 Pulse 102 H 09/03/20 13:05 Resp 18 09/03/20 13:05 BP 130/82 09/03/20 13:05 Pulse Ox 97 09/03/20 13:05 Airway Mallampati Class: II TM Dist: >3cm Neck ROM: Full Loose/Missing/Broken Teeth: No Heart: RRR Lungs: CTA Assessment and Plan Assessment Anesthesia Assessment: Anesthesia Plan Discussed and Chart Reviewed Final Anesthetic Review NPO: Yes ASA Class: II Final Preanesthetic Review: Meds/Allgs Chart Reviewed, Consent Obtained/Reviewed and Anes Risks/Benef Reviewed Patient Risk: Low Procedure Risk: Low Anesthetic Plan Anesthetic Plan: MAC: Disposition: Standard PACU
--- NOTE | 2020-09-03 13:41 | MHC.SHP ---
Pre-Procedural Eval Section A The patient is an INPATIENT: No Section B Chief Complaint: hx of colonic polyps Details of Present Illness: see H&P no changes Relevant Family History (Specify if Yes): Yes Relevant Social History: None Present Medications: see Short Stay [facility] assessment Medical History: No relevant PMH History of Previous Operations: No relevant previous surgery Allergies: Allergies Allergy/AdvReac Type Severity Reaction Status Date / Time lamotrigine [From LAMICTAL] Allergy Intermediate RASH Verified 08/16/20 00:53 Sulfa (Sulfonamide Allergy Intermediate UNKNOWN, Verified 08/16/20 00:53 Antibiotics) upset [SULFA (SULFONAMIDE stomach ANTIBIOTICS)] codeine [CODEINE] Allergy Mild NAUSEA & Verified 08/16/20 00:53 VOMITING, nausea and vomiting penicillin V [PENICILLIN V] Allergy Mild NAUSEA & Verified 08/16/20 00:53 VOMITING, sick to stomach, nausea and vomiting ciprofloxacin [Cipro] Allergy Unknown sick to Verified 08/16/20 00:53 stomach Motrin Allergy Unknown sick to Verified 08/16/20 00:53 stomach, nausea and vomiting Review of Systems Sugical H&P ROS: Negative: Constitution, Cardiovascular, Respiratory, Neurological, Psychiatric, Hem-Onc, Allergic/Immunologic, Gastrointestinal, Genitourinary, Musculoskeletal, Integumentary, Endocrine and Eyes/Ears/Nose/Throat Exam Surgical H&P Exam: Normal: HEENT, Normal: Heart, Normal: Lungs, Normal: Extremities, Normal: Abdomen, Normal: Skin and Normal: Neurological Plan Diagnosis/Plan: Unchanged I have reviewed the history and physical and performed a pertinent physical examination on my patient. No changes have occurred unless specified.
[2020-09-03 14:07] VITALS: BP 96/53; PULSE 84; RESP 18; TEMP 36.1; O2SAT 98
--- NOTE | 2020-09-03 14:08 | PM.OP ---
Brief Operative Note Date of Service: 09/03/20 Pre-op diagnosis: FH colon polyps screening Post-op diagnosis: same (normal) Surgeon: Zoltan Vazquez Anesthesia: MAC Estimated blood loss (mL): 0 Pathology: none sent Condition: stable Disposition: PACU
[2020-09-03 14:22] VITALS: BP 120/94; PULSE 76; RESP 17; TEMP 36.1; O2SAT 99
--- NOTE | 2020-09-03 14:22 | OP_ITS ---
SURGEON: Zoltan Vazquez MD INDICATIONS: Colon cancer screening and family history of colon polyps. PREOPERATIVE DIAGNOSIS: POSTOPERATIVE DIAGNOSIS: PROCEDURE PERFORMED: Colonoscopy to the terminal ileum. ESTIMATED BLOOD LOSS: COMPLICATIONS: ANESTHESIA: ASSISTANTS: SPECIMENS: MEDICATIONS: Monitored anesthesia care. DESCRIPTION OF PROCEDURE: History and physical performed. The risks and benefits of the procedure were explained to the patient. Informed consent was obtained. The patient was placed in left lateral decubitus position. A digital rectal exam was performed and was found to be normal. The Olympus pediatric video colonoscope was introduced into the rectum and advanced to the cecum without difficulty. The cecum was identified by transillumination, palpation, and identification of ileocecal valve. Examination was performed and the scope was removed. She tolerated the procedure well and was taken to recovery area in stable condition. FINDINGS: The terminal ileum was normal. The visualized colonic mucosa was normal. The quality of the prep was good. There was some liquid stool coating the mucosa in the sigmoid. This was washed and suctioned. No other polyps were identified. Retroflexed examination showed small internal hemorrhoids. IMPRESSION: Normal colonoscopy. RECOMMENDATIONS: 1. Follow up as needed. 2. Repeat colonoscopy is recommended in 5 years because of family history of colon polyps. MD JITENDRA Castro/AMINATA / [id number]
== END 2020-09-03 14:58 | disposition home or self-care (01) ==
PROVIDERS: PCP Internal Medicine; Visit Provider Internal Medicine Gastroenterology
PROC: 0DJD8ZZ Inspection of Lower Intestinal Tract, Via Natural or Artificial Opening Endoscopic (ICD-10-PCS; CPT 45378; principal; 2020-09-03 13:30)
DX: Z12.11 Encounter for screening for malignant neoplasm of colon (principal); Z83.71 Family history of colonic polyps; K64.8 Other hemorrhoids; K58.9 Irritable bowel syndrome, unspecified; M81.0 Age-related osteoporosis without current pathological fracture; M35.00 Sjogren syndrome, unspecified; Z90.49 Acquired absence of other specified parts of digestive tract; Z79.899 Other long term (current) drug therapy
CPT/HCPCS: G0105

== ENCOUNTER 2020-09-26 16:35 | Outpatient (REF) | payer MEDICARE, SELFPAY | END 2020-09-26 16:36 | disposition home or self-care (01) | LOC: HO.LNP 16:35 | PROVIDERS: Visit Provider Hospitalist | DX: Z20.822 Contact with and (suspected) exposure to COVID-19 (principal); J01.90 Acute sinusitis, unspecified | CPT/HCPCS: U0003; U0005 ==

== ENCOUNTER 2020-10-30 13:24 | Outpatient (REF) | payer MEDICARE, SELFPAY ==
[2020-10-30 14:27] LABS: MANUAL DIFF FLAG NO
[2020-10-30 14:33] LABS: Basophils Percent Auto 0.1 % (0-2); Eosinophils Percent Auto 0.3 % (0-4); Hemoglobin 13.6 g/dl (12.0-16.0); Imm Gran Abs Auto 0.04 X10*3/uL (0.00-0.03); Imm Gran Pct Auto 0.4 % (0.0-0.4); Lymphocytes Absolute Auto 2.1 X10*3/uL (1.2-4.9); Lymphocytes Percent Auto 22.2 % (20-40); Mean Corpuscular HGB Conc 33.2 g/dl (31.0-35.0); Mean Corpuscular Hemoglobin 32.5 pg (27.0-33.0); Mean Corpuscular Volume 97.9 fL (80-98); Mean Platelet Volume 9.8 fL (9.4-12.3); Monocytes Absolute Auto 0.7 X10*3/uL (0.1-1.2); Monocytes Percent Auto 7.9 % (2-11); Neutrophils Absolute Auto 6.4 X10*3/uL (2.0-8.3); Neutrophils Percent Auto 69.1 % (45-73); Platelet Count 211 X10*3/uL (160-400); Red Blood Count 4.19 X10*6/uL (4.20-5.50); Red Cell Distribution Width 13.5 % (11.0-16.0); White Blood Count 9.2 X10*3/uL (4.8-10.8)
[2020-10-30 14:55] LABS: Alanine Aminotransferase 31 U/L (0-31); Albumin Level 4.1 g/dL (3.5-5.0); Alkaline Phosphatase 54 U/L (39-117); Aspartate Amino Transferase 25 U/L (5-31); Bilirubin Direct 0.2 mg/dL (0.0-0.5); Bilirubin Total 0.4 mg/dL (0.0-1.0); Total Protein 6.9 g/dL (6.5-8.0)
[2020-10-30 15:22] LABS: Erythrocyte Sedimentation Rate 5 MM/HR (0-20)
[2020-10-30 16:09] LABS: Alanine Aminotransferase 33 U/L (0-31); Albumin Level 4.1 g/dL (3.5-5.0); Alkaline Phosphatase 53 U/L (39-117); Anion Gap 15 (12-20); Aspartate Amino Transferase 26 U/L (5-31); Bilirubin Total 0.4 mg/dL (0.0-1.0); Blood Urea Nitrogen 21 mg/dL (9-16); C Reactive Protein 0.28 mg/dL (< or = 0.50); Calcium 9.6 mg/dL (8.4-10.2); Carbon Dioxide 26 mmol/L (22-29); Chloride 105 mmol/L (96-108); Estimated Glomerular Filt Rate > 60; Glucose Random 116 mg/dL (60-115); Sodium 142 mmol/L (135-145)
[2020-10-31 12:16] LABS: Antibody to SS-A Antigen <1.0 NEG AI (<1.0 NEG); Antibody to SS-B Antigen <1.0 NEG AI (<1.0 NEG)
[2020-10-31 14:16] LABS: IgA 265 mg/dL (70-320); IgG 1074 mg/dL (600-1540); IgM 126 mg/dL (50-300)
[2020-11-03 12:07] LABS: Prot Elec - Albumin 3.9 g/dL (3.8-4.8); Prot Elec - Alpha1 0.3 g/dL (0.2-0.3); Prot Elec - Alpha2 0.7 g/dL (0.5-0.9); Prot Elec - Beta 1 0.4 g/dL (0.4-0.6); Prot Elec - Beta 2 0.4 g/dL (0.2-0.5); Prot Elec - Gamma 0.9 g/dL (0.8-1.7); Prot Elec - Total Protein 6.6 g/dL (6.1-8.1)
== END 2020-10-30 13:25 | disposition home or self-care (01) ==
LOC: HO.LAB 13:24
PROVIDERS: Student in an Organized Health Care Education/Training Program; PCP Internal Medicine; Visit Provider Internal Medicine Gastroenterology
DX: M35.00 Sjogren syndrome, unspecified (principal); R79.89 Other specified abnormal findings of blood chemistry
CPT/HCPCS: 36415; 80053; 80076; 82248; 82784; 84155; 84165; 85025; 85652; 86140; 86235; 86334

== ENCOUNTER 2020-11-20 13:02 | Outpatient (REF) | payer SELFPAY ==
--- NOTE | 2020-11-20 16:36 | MHC.AU.AEV ---
Adult Audiological Evaluation Date of Visit: 11/20/20 Reason for Appointment: Ms. Navarro was seen today reports a sudden change in her tinnitus ~ 1 month ago. She feels it has gotten much worse and louder. She finds it very bothersome and is causing mental anguish. She feels her ears are feeling more blocked as well. She notes that she saw an ENT who told her there was no cure for tinnitus and to use sound generators. They did not do a repeat hearing test at that time. She notes that in the past month she has received the second dose of the COVID-19 vaccine and was on Prednisone. Advised that it is possible that either of these could have affected her tinnitus. Decided to run a quick hearing test today to see if changes were noted since her last evaluation in Feb 2020. Has hearing been tested previously?: Yes Normal hearing 250-1500 Hz, sloping to a mild to moderate sensorineural hearing loss bilaterally. Ear History: Bothersome Tinnitus/Ringing/Noises in Ears: Both Ears Otoscopy: Right Ear: Partially occluded with cerumen Left Ear: Partially occluded with cerumen Tympanometry: Right Ear: Normal Middle Ear System (Type A) Left Ear: Normal Middle Ear System (Type A) Hearing Evaluation: Transducer(s) Used: Insert Earphones Method: Conventional Audiometry Stimuli Used: Pure Tones Right Ear: Description of Hearing: Normal hearing 250-1500 Hz, sloping to a mild to moderate sensorineural hearing loss 8935-7941 Hz. Left Ear: Description of Hearing: Normal hearing 250-1500 Hz, sloping to a mild to moderate sensorineural hearing loss 2540-3044 Hz. Comparison: Compared to the most recent evaluation: Hearing is stable. Interpretation of Results: No signs of middle-ear dysfunction or change in hearing that would explain a change in her tinnitus. Recommendations: Hearing aids are recommended to facilitate improved communication and to help manage tinnitus. Set her up with a loaner set of hearing aids today to try to see if they help reduced the perception of tinnitus. She noted that the did. Taking the loaners for two weeks and will return for a hearing aid evaluation. Diagnosis: Primary Diagnosis: H90.3 Bilateral Sensorineural Hearing Loss Secondary Diagnosis: H93.13 Tinnitus, Bilateral Signature: Provider: Ketan Azevedo, [facility]
== END 2020-11-20 13:03 | disposition home or self-care (01) ==
LOC: HO.HAP 13:02
PROVIDERS: Visit Provider Internal Medicine
DX: Z13.89 Encounter for screening for other disorder (principal)

== ENCOUNTER → 2020-12-18 15:48 | Outpatient (BNVA) | payer MEDICARE, SELFPAY | PROVIDERS: PCP Internal Medicine; Visit Provider Student in an Organized Health Care Education/Training Program | DX: M35.00 Sjogren syndrome, unspecified (principal) | CPT/HCPCS: 99212 ==

== ENCOUNTER 2020-12-25 14:13 | Outpatient (REF) | payer SELFPAY | END 2020-12-25 14:14 | disposition home or self-care (01) | LOC: HO.HAP 14:13 | PROVIDERS: Visit Provider Internal Medicine | DX: Z13.89 Encounter for screening for other disorder (principal) ==

== ENCOUNTER 2021-02-03 16:40 | Outpatient (REF) | payer MEDICARE, SELFPAY ==
[2021-02-03 17:54] LABS: MANUAL DIFF FLAG NO
[2021-02-03 18:14] LABS: Basophils Percent Auto 0.6 % (0-2); Eosinophils Absolute Auto 0.2 X10*3/uL (0.0-0.4); Eosinophils Percent Auto 3.8 % (0-4); Hematocrit 42.9 % (37-47); Hemoglobin 14.2 g/dl (12.0-16.0); Imm Gran Abs Auto 0.02 X10*3/uL (0.00-0.03); Imm Gran Pct Auto 0.4 % (0.0-0.4); Lymphocytes Absolute Auto 1.4 X10*3/uL (1.2-4.9); Lymphocytes Percent Auto 27.3 % (20-40); Mean Corpuscular HGB Conc 33.1 g/dl (31.0-35.0); Mean Corpuscular Hemoglobin 32.2 pg (27.0-33.0); Mean Corpuscular Volume 97.3 fL (80-98); Mean Platelet Volume 10.3 fL (9.4-12.3); Monocytes Absolute Auto 0.6 X10*3/uL (0.1-1.2); Monocytes Percent Auto 11.3 % (2-11); Neutrophils Absolute Auto 2.9 X10*3/uL (2.0-8.3); Neutrophils Percent Auto 56.6 % (45-73); Platelet Count 192 X10*3/uL (160-400); Red Blood Count 4.41 X10*6/uL (4.20-5.50); Red Cell Distribution Width 13.2 % (11.0-16.0); White Blood Count 5.2 X10*3/uL (4.8-10.8)
[2021-02-03 18:19] LABS: Alanine Aminotransferase 40 U/L (0-31); Albumin Level 4.3 g/dL (3.5-5.0); Alkaline Phosphatase 63 U/L (39-117); Anion Gap 12 (12-20); Aspartate Amino Transferase 40 U/L (5-31); Bilirubin Total 0.4 mg/dL (0.0-1.0); Blood Urea Nitrogen 19 mg/dL (9-16); Calcium 9.7 mg/dL (8.4-10.2); Carbon Dioxide 31 mmol/L (22-29); Chloride 104 mmol/L (96-108); Estimated Glomerular Filt Rate > 60; Glucose Random 87 mg/dL (60-115); Potassium 4.5 mmol/L (3.3-5.1); Sodium 142 mmol/L (135-145); Total Protein 7.1 g/dL (6.5-8.0)
[2021-02-03 18:40] LABS: TSH reflex Free T4 1.45 uIU/mL (0.32-4.0); Vitamin D 25-OH Total 52.2 ng/mL (>30)
[2021-02-03 19:36] LABS: Folate > 20.0 ng/mL (> or = 4.0); Vitamin B12 860 pg/mL (200-900)
== END 2021-02-03 16:41 | disposition home or self-care (01) ==
LOC: HO.LAB 16:40
PROVIDERS: PCP Internal Medicine; Visit Provider Nurse Practitioner Family
DX: R53.83 Other fatigue (principal)
CPT/HCPCS: 36415; 80053; 82306; 82607; 82746; 84443; 85025

== ENCOUNTER 2021-04-08 14:39 | Outpatient (REF) | payer SELFPAY | END 2021-04-08 14:40 | disposition home or self-care (01) | LOC: HO.HAP 14:39 | PROVIDERS: Visit Provider Internal Medicine | DX: Z13.89 Encounter for screening for other disorder (principal) ==

== ENCOUNTER → 2021-05-05 13:37 | Outpatient (BNVA) | payer MEDICARE, SELFPAY | PROVIDERS: PCP Internal Medicine; Visit Provider Urology | DX: Z13.89 Encounter for screening for other disorder (principal) | CPT/HCPCS: Q3014 ==

== ENCOUNTER 2021-08-12 10:35 | Outpatient (REF) | payer MEDICARE, SELFPAY ==
[2021-08-12 13:49] LABS: MANUAL DIFF FLAG NO
[2021-08-12 13:56] LABS: Basophils Percent Auto 0.1 % (0-2); Hematocrit 41.5 % (37.0-47.0); Hemoglobin 13.8 g/dl (12.0-16.0); Imm Gran Abs Auto 0.07 X10*3/uL (0.00-0.03); Imm Gran Pct Auto 0.7 % (0.0-0.4); Lymphocytes Absolute Auto 0.8 X10*3/uL (1.2-4.9); Lymphocytes Percent Auto 8.5 % (20-40); Mean Corpuscular HGB Conc 33.3 g/dl (31.0-35.0); Mean Corpuscular Hemoglobin 32.2 pg (27.0-33.0); Mean Corpuscular Volume 96.7 fL (80.0-98.0); Mean Platelet Volume 10.3 fL (9.4-12.3); Monocytes Absolute Auto 0.4 X10*3/uL (0.1-1.2); Monocytes Percent Auto 3.9 % (2-11); Neutrophils Absolute Auto 8.5 x10*3/uL (2.0-8.3); Neutrophils Percent Auto 86.8 % (45-73); Platelet Count 196 X10*3/uL (160-400); Red Blood Count 4.29 X10*6/uL (4.20-5.50); Red Cell Distribution Width 13.2 % (11.0-16.0); White Blood Count 9.8 X10*3/uL (4.8-10.8)
[2021-08-12 14:03] LABS: Alanine Aminotransferase 27 U/L (0-31); Albumin Level 4.2 g/dL (3.5-5.0); Alkaline Phosphatase 60 U/L (39-117); Anion Gap 12 (12-20); Aspartate Amino Transferase 25 U/L (5-31); Bilirubin Total 0.5 mg/dL (0.0-1.0); Blood Urea Nitrogen 18 mg/dL (9-16); Calcium 9.5 mg/dL (8.4-10.2); Carbon Dioxide 28 mmol/L (22-29); Chloride 103 mmol/L (96-108); Cholesterol 198 mg/dL; Estimated Glomerular Filt Rate > 60; Glucose Random 117 mg/dL (60-115); HDL Cholesterol 69 mg/dL; LDL Cholesterol Calculated 120 mg/dl; Sodium 139 mmol/L (135-145); Total Protein 7.1 g/dL (6.5-8.0); Triglycerides 47 mg/dL
[2021-08-12 14:26] LABS: Free T4 (Free Thyroxine) 0.69 ng/dL (0.71-1.85)
== END 2021-08-12 10:36 | disposition home or self-care (01) ==
LOC: HO.10HDL 10:35
PROVIDERS: Visit Provider Nurse Practitioner Acute Care
DX: N20.0 Calculus of kidney (principal); E78.00 Pure hypercholesterolemia, unspecified
CPT/HCPCS: 36415; 80053; 80061; 84439; 85025

== ENCOUNTER 2021-12-11 11:51 | Outpatient (REF) | payer MEDICARE, SELFPAY ==
[2021-12-11 13:19] LABS: Estimated Average Glucose 117 mg/dL; Hemoglobin A1c % 5.7 %
[2021-12-11 13:48] LABS: Alanine Aminotransferase 41 U/L (0-31); Albumin Level 3.9 g/dL (3.5-5.0); Alkaline Phosphatase 53 U/L (39-117); Anion Gap 12 (12-20); Aspartate Amino Transferase 33 U/L (5-31); Bilirubin Total 0.7 mg/dL (0.0-1.0); Blood Urea Nitrogen 16 mg/dL (9-16); Calcium 9.1 mg/dL (8.4-10.2); Carbon Dioxide 28 mmol/L (22-29); Chloride 105 mmol/L (96-108); Estimated Glomerular Filt Rate > 60; Glucose Random 93 mg/dL (60-115); Sodium 141 mmol/L (135-145); Total Protein 6.4 g/dL (6.5-8.0)
[2021-12-11 14:10] LABS: Free T4 (Free Thyroxine) 0.96 ng/dL (0.71-1.85); Thyroid Stimulating Hormone 1.22 uIU/mL (0.32-4.0)
== END 2021-12-11 11:52 | disposition home or self-care (01) ==
LOC: HO.LAB 11:51
PROVIDERS: PCP Internal Medicine; Visit Provider Internal Medicine
DX: R73.01 Impaired fasting glucose (principal); E78.00 Pure hypercholesterolemia, unspecified
CPT/HCPCS: 36415; 80053; 83036; 84439; 84443

== ENCOUNTER 2022-04-28 14:27 | Outpatient (REF) | payer MEDICARE, SELFPAY ==
--- NOTE | ~2022-04-28 | US_ITS ---
EXAMINATION: US RETROPERITONEAL LIMITED (RENAL ONLY) CLINICAL INFORMATION: Calculus of kidney. COMPARISON: MRCP 08/18/2020. Ultrasound abdomen limited 08/16/2020. CT abdomen and pelvis 08/16/2020. Renal ultrasound 02/15/2018. X-ray KUB 08/26/2014 and 06/28/2014. TECHNIQUE: Real-time imaging of the kidneys. FINDINGS: RIGHT KIDNEY: 7.7 x 4.1 x 4.7 cm (SAG x AP x TRV). The kidney is normal in size, contour, and echogenicity. Renal cortical thickness is normal. No calculi or focal parenchymal lesions. No hydronephrosis. LEFT KIDNEY: 7.8 x 4.1 x 4.3 cm (SAG x AP x TRV). The kidney is normal in size, contour, and echogenicity. Renal cortical thickness is normal. There are 3 small 2 mm stones. No focal parenchymal lesions or hydronephrosis. US/US renal BI IMPRESSION: Small left renal stones.
== END 2022-04-28 14:28 | disposition home or self-care (01) ==
LOC: HO.HMGCX 14:27
PROVIDERS: PCP Internal Medicine; Visit Provider Urology
DX: N20.0 Calculus of kidney (principal)
CPT/HCPCS: 76775

== ENCOUNTER → 2022-05-05 15:22 | Outpatient (BNVA) | payer MEDICARE, SELFPAY | PROVIDERS: PCP Internal Medicine; Visit Provider Urology | DX: N20.0 Calculus of kidney (principal) | CPT/HCPCS: 99212 ==

== ENCOUNTER 2022-08-11 11:46 | Outpatient (REF) | payer MEDICARE, SELFPAY ==
[2022-08-11 12:10] LABS: MANUAL DIFF FLAG NO
[2022-08-11 13:03] LABS: Basophils Percent Auto 0.5 % (0-2); Eosinophils Absolute Auto 0.3 X10*3/uL (0.0-0.4); Eosinophils Percent Auto 4.4 % (0-4); Hematocrit 40.6 % (37.0-47.0); Hemoglobin 13.6 g/dl (12.0-16.0); Imm Gran Abs Auto 0.04 X10*3/uL (0.00-0.03); Imm Gran Pct Auto 0.6 % (0.0-0.4); Lymphocytes Absolute Auto 1.2 X10*3/uL (1.2-4.9); Lymphocytes Percent Auto 17.9 % (20-40); Mean Corpuscular HGB Conc 33.5 g/dl (31.0-35.0); Mean Corpuscular Hemoglobin 32.8 pg (27.0-33.0); Mean Corpuscular Volume 97.8 fL (80.0-98.0); Mean Platelet Volume 9.8 fL (9.4-12.3); Monocytes Absolute Auto 0.7 X10*3/uL (0.1-1.2); Monocytes Percent Auto 11.4 % (2-11); Neutrophils Absolute Auto 4.2 x10*3/uL (2.0-8.3); Neutrophils Percent Auto 65.2 % (45-73); Platelet Count 211 X10*3/uL (160-400); Red Blood Count 4.15 X10*6/uL (4.20-5.50); Red Cell Distribution Width 13.7 % (11.0-16.0); White Blood Count 6.4 X10*3/uL (4.8-10.8)
[2022-08-11 13:14] LABS: Estimated Average Glucose 111 mg/dL; Hemoglobin A1c % 5.5 %
[2022-08-11 13:47] LABS: Erythrocyte Sedimentation Rate 12 MM/HR (0-20)
[2022-08-11 13:54] LABS: Alanine Aminotransferase 33 U/L (0-31); Albumin Level 3.8 g/dL (3.5-5.0); Alkaline Phosphatase 63 U/L (39-117); Anion Gap 14 (12-20); Aspartate Amino Transferase 27 U/L (5-31); Bilirubin Total 0.5 mg/dL (0.0-1.0); Blood Urea Nitrogen 15 mg/dL (9-16); C Reactive Protein 0.36 mg/dL (< or = 0.50); Calcium 9.2 mg/dL (8.4-10.2); Carbon Dioxide 27 mmol/L (22-29); Chloride 107 mmol/L (96-108); Cholesterol 195 mg/dL; Estimated Glomerular Filt Rate > 60; Glucose Random 96 mg/dL (60-115); HDL Cholesterol 64 mg/dL; LDL Cholesterol Calculated 118 mg/dl; Magnesium 2.1 mg/dL (1.6-2.6); Potassium 4.4 mmol/L (3.3-5.1); Sodium 144 mmol/L (135-145); Total Protein 6.3 g/dL (6.5-8.0); Triglycerides 68 mg/dL
[2022-08-11 14:13] LABS: Folate 13.4 ng/mL (> or = 4.0); Thyroid Stimulating Hormone 1.86 uIU/mL (0.32-4.0); Vitamin B12 656 pg/mL (200-900); Vitamin D 25-OH Total 30.2 ng/mL (>30)
== END 2022-08-11 11:47 | disposition home or self-care (01) ==
LOC: HO.LAB 11:46
PROVIDERS: PCP Internal Medicine; Visit Provider Internal Medicine
DX: R73.01 Impaired fasting glucose (principal); M35.00 Sjogren syndrome, unspecified; E78.00 Pure hypercholesterolemia, unspecified
CPT/HCPCS: 36415; 80053; 80061; 82306; 82607; 82746; 83036; 83735; 84439; 84443; 85025; 85652; 86140

== ENCOUNTER 2023-02-04 11:40 | Outpatient (AMB) | payer MEDICARE, SELFPAY ==
--- NOTE | 2023-02-04 13:05 | MHC.OFFWIV ---
Intake Vital Signs 02/04/23 13:16 Height 5 ft 1 in Weight 60.328 kg BMI 25.1 BP 120/70 Blood Pressure Location Lt brachial Position Sitting Pulse 79 Pulse Source Pulse Oximeter Temp 96.3 F L Temp Source Temporal Artery Scan Pulse Oximetry (%) 95 Oxygen Delivery Method Room Air Intake Visit Reasons: EST/sore throat chest and cough [phone] Intake Note: Pt is here c/o core throat, cough and chest congestion. Patient Tobacco Use Status: Never used Tobacco Allergies lamotrigine [From LAMICTAL] Allergy (Intermediate, Verified 02/04/23 13:05) RASH Sulfa (Sulfonamide Antibiotics) [SULFA (SULFONAMIDE ANTIBIOTICS)] Allergy (Intermediate, Verified 02/04/23 13:05) UNKNOWN, upset stomach codeine [CODEINE] Allergy (Mild, Verified 02/04/23 13:05) NAUSEA & VOMITING, nausea and vomiting penicillin V [PENICILLIN V] Allergy (Mild, Verified 02/04/23 13:05) NAUSEA & VOMITING, sick to stomach, nausea and vomiting ciprofloxacin [Cipro] Allergy (Unknown, Verified 02/04/23 13:05) sick to stomach ibuprofen [From Motrin] Adverse Reaction (Verified 02/04/23 13:05) sick to stomach, nausea and vomiting Do you need a note to return to daycare/school/sports/work: No HPI HPI Comments History of Present Illness Details 72-year-old female presents with about 1 week of upper respiratory symptoms, has had multiple sick contacts, and her is currently on antibiotics for bacterial bronchitis versus pneumonia. Patient states the cough is deep, and is preventing her from sleeping. She is fatigued, and has a headache most likely due to the cough. [facility] Medical History Acute sinusitis Bile salt-induced diarrhea Calculus of left kidney Cholecystectomy planned Constipation Essential tremor GERD (gastroesophageal reflux disease) Hepatitis History of duodenal ulcer Hypercholesterolemia Irritable bowel syndrome Liver hemangioma Osteoarthritis Osteoporosis Right knee meniscal tear Sjogren's syndrome Trigger finger of right hand Umbilical hernia Surgical History Cataract H/O adenoidectomy History of appendectomy History of cholecystectomy History of eyelid surgery History of knee surgery Hx of tonsillectomy Family History Father Hypertension Prostate cancer Mother Hypertension Diabetes Dementia Maternal Aunt Gastric cancer Paternal Aunt Gastric cancer Ovarian cancer Paternal Uncle Myocardial infarction Social History Household Members: Spouse Housing: House Do you presently have visiting nurse or other home services: No Alcohol intake: never Patient Tobacco Use Status: Never used Tobacco e-Cigarette/Vaping Use: Never Used Second Hand Smoke Exposure: No service: No Current occupational status: retired Cognitive needs: No Hearing needs: No Vision needs: Yes Review of Systems Const Details: Constitutional: No Fever, No Chills ENT/Mouth: No Ear Pain, No Hoarseness, positive sore throat Eyes: No Eye Pain, No Swelling, No Redness, No Foreign Body Cardiovascular: No Chest Pain, No SOB Respiratory: Positive Cough, No Dyspnea Gastrointestinal: No Nausea, No Vomiting, No Diarrhea, No abdominal Pain Genitourinary: No Dysuria, No Hematuria Musculoskeletal: No joint pain, No Myalgias, No Joint Swelling Skin: No Skin lacerations, No rash Neuro: No Weakness, No Numbness, No Paresthesias, No Loss of Consciousness, No Dizziness, positive Headache All systems reviewed & are unremarkable except as noted in HPI and below Physical Exam Vital Signs: Last Vital Signs Temp 96.3 F L 02/04/23 13:16 Pulse 79 02/04/23 13:16 BP 120/70 02/04/23 13:16 Pulse Ox 95 02/04/23 13:16 Oxygen Delivery Method Room Air 02/04/23 13:16 BMI result Body Mass Index 25.1 Appearance: Alert. Oriented X3. No acute distress. Eyes: Pupils equal, round and reactive to light. ENT: Pharynx normal. Moist mucous membranes. Neck: Normal inspection. Neck supple. CVS: Normal heart rate and rhythm. Pulses normal. Respiratory: No respiratory distress. Breath sounds normal. Skin: Skin warm and dry. Normal skin color. Normal skin turgor. Extremities: No lower extremity edema. Gait well balanced and well coordinated. Neuro: No motor deficit. No sensory deficit. Cranial nerves 2-12 intact. Assessment & Plan Assessment & Plan (1) Bronchitis: Code(s): J40 - Bronchitis, not specified as acute or chronic Plan 72-year-old female presents with about 1 week of upper respiratory symptoms, has had multiple sick contacts, and her is currently on antibiotics for bacterial bronchitis versus pneumonia. Patient states the cough is deep, and is preventing her from sleeping. She is fatigued, and has a headache most likely due to the cough. Patient is alert oriented x4, afebrile, nontoxic. Speaking in complete sentences. Even unlabored respirations. Vital signs stable and within normal limits. Considering that this patient lives with someone and being treated for suspected bacterial bronchitis versus pneumonia with doxycycline, will treat with similar medication regimen. Patient does understand that if her symptoms worsen that she should present to the emergency department for evaluation. Patient verbalized understanding of discharge instructions. Verbalized understandings of signs and symptoms indicating need for emergent intervention. Medications: New doxycycline monohydrate 100 mg PO BID 14 caps 0RF 7 days dextromethorphan-guaifenesin 10-200 mg (Coricidin HBP Chest Congestion-Cough) 1 tab-cap PO Q8H PRN 30 caps 0RF cough 10 days benzonatate 100 mg PO TID PRN 20 caps 0RF cough Patient Instructions: You were evaluated for upper respiratory symptoms. We are treating with antibiotics for suspected bacterial bronchitis. Please take doxycycline 100 mg every 12 hours for the next 7 days. Take Tessalon Perles every 8 hours as needed for cough. Drink plenty of fluids. Thank you for choosing this urgent care for evaluation. Please follow-up with primary care physician as needed. Return to the emergency department for any new, concerning, or worsening symptoms. Coding Level of Care Code Est Pt Level 3 (45148) Diagnoses Bronchitis J40
[2023-02-04 13:16] VITALS: BP 120/70; PULSE 79; TEMP 35.7; O2SAT 95; BMI 25.1
== END 2023-02-04 13:36 | disposition home or self-care (01) ==
PROVIDERS: PCP Internal Medicine; Visit Provider Nurse Practitioner Family
DX: J40 Bronchitis, not specified as acute or chronic (principal)
CPT/HCPCS: 99213

== ENCOUNTER 2023-03-31 14:34 | Outpatient (AMB) | payer MEDICARE, SELFPAY ==
[2023-03-31 14:38] VITALS: BP 110/60; PULSE 75; O2SAT 98; BMI 25.3
--- NOTE | 2023-03-31 14:38 | MHC.PC.OV ---
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 Accompanied by: Spouse Allergies lamotrigine [From LAMICTAL] Allergy (Intermediate, Verified 03/31/23 14:38) RASH Sulfa (Sulfonamide Antibiotics) [SULFA (SULFONAMIDE ANTIBIOTICS)] Allergy (Intermediate, Verified 03/31/23 14:38) UNKNOWN, upset stomach codeine [CODEINE] Allergy (Mild, Verified 03/31/23 14:38) NAUSEA & VOMITING, nausea and vomiting penicillin V [PENICILLIN V] Allergy (Mild, Verified 03/31/23 14:38) NAUSEA & VOMITING, sick to stomach, nausea and vomiting ciprofloxacin [Cipro] Allergy (Unknown, Verified 03/31/23 14:38) sick to stomach ibuprofen [From Motrin] Adverse Reaction (Verified 03/31/23 14:38) sick to stomach, nausea and vomiting Tobacco use date assessed: 12/17/22 Fall risk assessment: No Falls in past year Last assessed Fall Risk: 03/31/23 Dental Screening Dental Screen Date: 03/31/23 Did you have a dental visit in the last 12 months?: Yes Did you have a dental problem in the last 6 months where you did not have access to dental care?: No Was dental information given to patient?: Patient has dentist HPI depression HPI Details 72-year-old female with hypercholesterolemia GERD Sjogren's disease generalized anxiety disorder impaired glucose tolerance and migraine last seen in November 2022. Patient colonoscopy is up-to-date mammogram is up-to-date bone density due for May.. Patient was seen in the Urgent Center for sore throat and cough diagnosis of bronchitis and treated with doxycycline. [facility] Medical History (Updated 03/31/23 @ 15:07 by Darwin Hopper MD) Colon cancer screening Acute sinusitis Trigger finger of right hand Sjogren's syndrome Bile salt-induced diarrhea Osteoarthritis Irritable bowel syndrome GERD (gastroesophageal reflux disease) Essential tremor Hypercholesterolemia Calculus of left kidney Constipation Cholecystectomy planned Right knee meniscal tear Hepatitis Osteoporosis Umbilical hernia History of duodenal ulcer Liver hemangioma Surgical History Hx of tonsillectomy History of cholecystectomy Cataract History of knee surgery History of eyelid surgery H/O adenoidectomy History of appendectomy Family History Father Hypertension Prostate cancer Mother Hypertension Diabetes Dementia Maternal Aunt Gastric cancer Paternal Aunt Gastric cancer Ovarian cancer Paternal Uncle Myocardial infarction Social History Household Members: Spouse Housing: House Do you presently have visiting nurse or other home services: No Alcohol intake: never Patient Tobacco Use Status: Never used Tobacco e-Cigarette/Vaping Use: Never Used Second Hand Smoke Exposure: No service: No Current occupational status: retired Cognitive needs: No Hearing needs: No Vision needs: Yes Questionnaire PHQ-9 Over the last 2 weeks, how often have you been bothered by any of the following problems? 1. Little interest or pleasure in doing things: several days 2. Feeling down, depressed, or hopeless: several days 3. Trouble falling or staying asleep, or sleeping too much: not at all 4. Feeling tired or having little energy: not at all 5. Poor appetite or overeating: not at all 6. Feeling bad about yourself - or that you are a failure or have let yourself or your family down: not at all 7. Trouble concentrating on things, such as reading the newspaper or watching television: not at all 8. Moving or speaking so slowly that other people could have noticed. Or the opposite - being so fidgety or restless that you have been moving around a lot more than usual: not at all 9. Thoughts that you would be better off or of hurting yourself in some way: not at all Total score: 2 Depression Screening Interpretation: Positive Depression Screening Done: Yes Source: Developed by Drs. Benny Marcano, Gina Gonzalez, Obi Guajardo and colleagues, with an educational garcia from [employer]. Thrive Questionnaire Date Thrive assessed: 09/16/22 AUDIT C Alcohol Use Questionnaire (AUDIT-C) 1. How often do you have a drink containing alcohol?: Never 2. How many drinks containing alcohol do you have on a typical day when you are drinking?: 1 or 2 3. How often do you have six or more drinks on one occasion?: Never Total Score: 0 Score Reviewed/Action Taken: No BENITA-7 AMB Questionnaire BENITA-7 Date BENITA - 7 assessed: 09/16/22 Source: Developed by Drs. Benny Marcano, Gina Gonzalez, Obi Guajardo and colleagues, with an educational garcia from [employer]. Physical exam (Primary Care) Vital Signs: Last Vital Signs Pulse 75 03/31/23 14:38 BP 110/60 03/31/23 14:38 Pulse Ox 98 03/31/23 14:38 Oxygen Delivery Method Room Air 03/31/23 14:38 BMI result Body Mass Index 25.3 Tobacco/Smoking Status: Tobacco use Status Tobacco use date assessed 12/17/22 03/31/23 14:39 Patient Tobacco Use Status Never used Tobacco 03/31/23 14:39 e-Cigarette/Vaping Use Never Used 03/31/23 14:39 PHQ-9: PHQ-9 Score PHQ-9: Total score 2 03/31/23 15:02 Depression Screening Interpretation: Positive Thrive Assessment: Date of Thrive Assessment Date Thrive assessed 09/16/22 03/31/23 14:39 Const General: alert; No acute distress Eyes Conjunctivae: conjunctivae normal Resp Auscultation: clear to auscultation bilaterally Cardio Rate: regular rate Rhythm: regular rhythm GI Inspection: Yes normal to inspection Extrem General: Yes normal to inspection and No edema Assessment and Plan Assessment & Plan (1) Impaired fasting blood sugar: Code(s): R73.01 - Impaired fasting glucose Plan: Decrease the amount of carbohydrate intake, pasta, bread, rice and potatoes are all sugar and that is aside from all the sweet stuff, remember that fruits are good but they are Sweet also. (2) Generalized anxiety disorder: Comment: Dr. Cortes Q2-3 months and counselling Q 2-3 weeks Code(s): F41.1 - Generalized anxiety disorder Plan: Continue with a present time, Abilify Lexapro and trazodone (3) Osteoporosis: Comment: 2020 Code(s): M81.0 - Age-related osteoporosis without current pathological fracture Plan: May 2023 due for bone density (4) Sjogren's syndrome: Code(s): M35.00 - Sjogren syndrome, unspecified Qualifiers: Sjogren's organ involvement: unspecified organ involvement Qualified Code(s): M35.00 - Sicca syndrome, unspecified Plan: Keep well hydrated (5) GERD (gastroesophageal reflux disease): Code(s): K21.9 - Gastro-esophageal reflux disease without esophagitis Qualifiers: Esophagitis presence: without esophagitis Qualified Code(s): K21.9 - Gastro-esophageal reflux disease without esophagitis Plan: Avoid the foods that causes that usually spicy foods, tomato products, juices, coffee, soda and foods that your sensitive to. After eating do not lie down, allow 3-4 hours before in lie down. And keep the head of bed above 30 degrees to avoid the acid from going up. (6) Hypercholesterolemia: Code(s): E78.00 - Pure hypercholesterolemia, unspecified Plan: Avoid fried foods, chicken skin, eggs, butter margarine, pastries and meat. Be it pork or beef they have a lot of cholesterol LDL goal of less than 130 and triglyceride of less than 150. Patient's last blood work was is July 2022 Orders: Orders XR DEXA axial skeleton 2 Months M81.0 - Age-related osteoporosis without current pathological fracture Complete Blood Count Auto Diff 3 Months E78.00 - Pure hypercholesterolemia, unspecified Free T4 (Free Thyroxine) 3 Months E78.00 - Pure hypercholesterolemia, unspecified Lipid Panel 3 Months E78.00 - Pure hypercholesterolemia, unspecified Vitamin D 25-OH Total 3 Months M81.0 - Age-related osteoporosis without current pathological fracture Hemoglobin A1c 3 Months R73.01 - Impaired fasting glucose Comprehensive Met. Panel 3 Months E78.00 - Pure hypercholesterolemia, unspecified Thyroid Stimulating Hormone 3 Months E78.00 - Pure hypercholesterolemia, unspecified Vitamin B12 and Folate 3 Months E78.00 - Pure hypercholesterolemia, unspecified Coding Level of Care Code Est Pt Level 4 (40733) Diagnoses Impaired fasting blood sugar R73.01 Generalized anxiety disorder F41.1 Osteoporosis M81.0 Sjogren's syndrome, with unspecified organ involvement M35.00 Sjogren's organ involvement: unspecified organ involvement Gastroesophageal reflux disease without esophagitis K21.9 Esophagitis presence: without esophagitis Hypercholesterolemia E78.00
== END 2023-03-31 15:51 | disposition home or self-care (01) ==
PROVIDERS: PCP Internal Medicine; Visit Provider Internal Medicine
DX: R73.01 Impaired fasting glucose (principal); F41.1 Generalized anxiety disorder; M81.0 Age-related osteoporosis without current pathological fracture; M35.00 Sjogren syndrome, unspecified; K21.9 Gastro-esophageal reflux disease without esophagitis; E78.00 Pure hypercholesterolemia, unspecified
CPT/HCPCS: 99214

== ENCOUNTER 2023-04-28 15:17 | Outpatient (REF) | payer MEDICARE, SELFPAY ==
--- NOTE | ~2023-04-28 | US_ITS ---
EXAMINATION: US RETROPERITONEAL LIMITED (RENAL ONLY) CLINICAL INFORMATION: Calculus of kidney. COMPARISON: Ultrasound retroperitoneal limited 04/28/2022. MR abdomen without contrast 08/18/2020. CT abdomen and pelvis without contrast 08/16/2020. Ultrasound abdomen limited 08/16/2020. X-ray abdomen 08/26/2014 and 06/28/2014. TECHNIQUE: Real-time imaging of the kidneys. FINDINGS: RIGHT KIDNEY: 7.7 x 4.0 x 4.7 cm (SAG x AP x TRV). The kidney is normal in size, contour, and echogenicity. Renal cortical thickness is normal. Small 4 mm cyst in the upper pole. No imaging follow-up recommended. No renal calculi or hydronephrosis. LEFT KIDNEY: 8.1 x 4.4 x 4.1 cm (SAG x AP x TRV). The kidney is normal in size, contour, and echogenicity. Renal cortical thickness is normal. Multiple small 2 3 mm stones throughout the left kidney. No focal parenchymal lesions or hydronephrosis. US/US renal BI IMPRESSION: Multiple small left renal stones.
== END 2023-04-28 15:18 | disposition home or self-care (01) ==
LOC: HO.HMGCX 15:17
PROVIDERS: PCP Internal Medicine; Visit Provider Urology
DX: N20.0 Calculus of kidney (principal)
CPT/HCPCS: 76775

== ENCOUNTER 2023-05-06 15:35 | Outpatient (AMB) | payer MEDICARE, SELFPAY ==
--- NOTE | 2023-05-06 15:43 | A.OFFVIS_ITS ---
Intake Intake Visit Reasons: 1yr follow up Intake Note: Patient is Present for Follow Up Urology Medication: none Antibiotic Allergies:sulfa, penicillin, Cipro Blood Thinners: None Allergies lamotrigine [From LAMICTAL] Allergy (Intermediate, Verified 03/31/23 14:38) RASH Sulfa (Sulfonamide Antibiotics) [SULFA (SULFONAMIDE ANTIBIOTICS)] Allergy (Intermediate, Verified 03/31/23 14:38) UNKNOWN, upset stomach codeine [CODEINE] Allergy (Mild, Verified 03/31/23 14:38) NAUSEA & VOMITING, nausea and vomiting penicillin V [PENICILLIN V] Allergy (Mild, Verified 03/31/23 14:38) NAUSEA & VOMITING, sick to stomach, nausea and vomiting ciprofloxacin [Cipro] Allergy (Unknown, Verified 03/31/23 14:38) sick to stomach ibuprofen [From Motrin] Adverse Reaction (Verified 03/31/23 14:38) sick to stomach, nausea and vomiting Medication List - Last Reconciled 05/06/23 by Attila Randolph MD alprazolam 0.5 mg PO BID PRN aripiprazole (Abilify) 2 mg PO DAILY asenapine maleate 2.5 mg sublingual cholecalciferol (vitamin D3) 25 mcg PO DAILY cyclosporine 0.09% (Cequa) 1 drp ophthalmic (eye) Q12H dextromethorphan-guaifenesin 10-200 mg (Coricidin HBP Chest Congestion-Cough) 1 tab-cap PO Q8H PRN 10 days escitalopram oxalate (Lexapro) 20 mg PO DAILY fluticasone propionate 50 mcg/actuation 2 sprays intranasal DAILY multivitamin 1 tab PO DAILY omega-3 fatty acids 1,000 mg PO DAILY omeprazole 20 mg PO DAILY pyridoxine (vitamin B6) 100 mg PO DAILY 90 days simvastatin 5 mg PO BEDTIME trazodone 100 mg PO BEDTIME PRN vitamin K2 45 mcg PO DAILY HPI HPI Comments History of Present Illness Details Madison is a very pleasant female. She is a patient of Dr. Bullard. She is seen for following urologic conditions - nephrolithiasis Discussed findings Knee replacement completed Yearly review Continue vitamin B6 Continue fluid intake Nephrolithiasis/Urolithiasis:? Discussed current findings 12 month follow-up ? They are here for further evaluation of nephrolithiasis, ? - Minimal symptoms since her last visit. Main issue is constipation. Discussion today repeat milk of magnesia, dried fruit.. ? Urolithiasis was diagnosed unsure how long. ? The patient previously had kidney stones whose composition w unknown. ? Laboratory investigations include no recent labs - reports calcium checked with Dr Winter 06/11 and is normal. ? 24 Hour urine evaluation Baseline 07/13 ? , Low Urine volume < 2.0 liters, Low calcium < 200, Low Oxalate < 30. ? Prior treatment(s) include observation. ? Prior imaging includes October 2015 , a CT (computed tomography) scan of the abdomen/pelvis (stone protocol), showing radiodense stone(s), , on the left 1mm ? Jun 2016 , a renal ultrasound - small stones on left < 2mm ? 02/11 , a renal ultrasound, showing no evidence of stones. - 04/15 renal ultrasound, left several 2-3 mm nonobstructing stones, 5 mm angiomyolipoma left upper pole - 04/16 renal ultrasound left 2.3 mm stone, other stones no longer present. 5 mm angiomyolipoma still present - 04/17 renal ultrasound with several small stones on left, right normal - 04/18 renal ultrasound small stones left stable ? UA today shows 6.0-7.0, high specific gravity suggestive of relative dehydration. ? Current therapeutic plan will be General advice to maintain good fluid intake for urine greater than 2.0 L per day, reduce salt and reduce protein and acid loads was provided?? [facility] Medical History (Updated 03/31/23 @ 15:07 by Darwin Hopper MD) Colon cancer screening Acute sinusitis Trigger finger of right hand Sjogren's syndrome Bile salt-induced diarrhea Osteoarthritis Irritable bowel syndrome GERD (gastroesophageal reflux disease) Essential tremor Hypercholesterolemia Calculus of left kidney Constipation Cholecystectomy planned Right knee meniscal tear Hepatitis Osteoporosis Umbilical hernia History of duodenal ulcer Liver hemangioma Surgical History Hx of tonsillectomy History of cholecystectomy Cataract History of knee surgery History of eyelid surgery H/O adenoidectomy History of appendectomy Family History Father Hypertension Prostate cancer Mother Hypertension Diabetes Dementia Maternal Aunt Gastric cancer Paternal Aunt Gastric cancer Ovarian cancer Paternal Uncle Myocardial infarction Social History Household Members: Spouse Housing: House Do you presently have visiting nurse or other home services: No Alcohol intake: never Patient Tobacco Use Status: Never used Tobacco e-Cigarette/Vaping Use: Never Used Second Hand Smoke Exposure: No service: No Current occupational status: retired Cognitive needs: No Hearing needs: No Vision needs: Yes Review of Systems Const Denies chills and Denies fever(s) Card Reports no additional complaints and Denies syncope Resp Denies cough GI Denies abdominal pain and Denies heartburn Reports as per HPI and Denies change in libido Neuro Denies syncope Psych Denies change in libido Endo Denies change in libido Physical Exam Const General: cooperative, healthy appearing, comfortable and no acute distress Orientation/consciousness: patient oriented x3 HEENT Face and sinus: Yes normal facial exam Mouth: moist mucous membranes Neck Neck: Yes normal visual inspection, Yes full ROM and Yes trachea midline Chest Chest palpation & inspection: normal inspection of the chest Resp Effort & Inspection: normal respiratory effort, able to speak in complete sentences and no respiratory distress GI Inspection: Yes normal to inspection Back/Spine/Pelvis Cervical Spine: normal cervical lordosis Thoracic/Lumbar Spine: thoracic and lumbar spine normal to inspection Skin General skin exam: no rashes or lesions noted Neuro General: patient oriented x3, gait normal, tone normal and moves all extremities Extrem General: Yes normal to inspection and Yes capillary refill normal Assessment & Plan Assessment & Plan (1) Nephrolithiasis: Comment: 04/2022 Code(s): N20.0 - Calculus of kidney Plan Twelve month follow-up Orders: Orders US renal BI 364 Days N20.0 - Calculus of kidney Patient Instructions: Imaging studies, laboratory and physical exam results were discussed and reviewed in detail. No major barriers to patient understanding were identified. An opportunity to ask questions regarding the treatment plan was provided. All questions were answered. The patient expressed understanding and agreement with the above treatment plan. The patient is aware they should contact our office by phone for worsening of their current condition or the appearance of new urologic symptoms. Compliance is encouraged with any medications and followup testing that is ordered. It is a privilege to participate in the urologic care of your patient. If you have any questions or concerns regarding treatment for the above conditions, or other urologic issues, please do not hesitate to contact me. The office telephone contact is [phone]. This note is constructed using voice recognition software. While every effort has been made to ensure accuracy neuro intensivist physician errors may have been included. Yours sincerely, Dr Attila Randolph MD, [facility] - Urology Providers of Expert, Compassionate Care for the Genitourinary System Coding Level of Care Code Est Pt Level 4 (57688) Diagnoses Nephrolithiasis N20.0
== END 2023-05-06 16:32 | disposition home or self-care (01) ==
PROVIDERS: Visit Provider Urology
DX: N20.0 Calculus of kidney (principal)
CPT/HCPCS: 99213

== ENCOUNTER → 2023-05-06 15:35 | Outpatient (BNVA) | payer MEDICARE, SELFPAY | PROVIDERS: Visit Provider Urology | DX: N20.0 Calculus of kidney (principal) | CPT/HCPCS: 99212 ==

== ENCOUNTER 2023-07-15 11:08 | Outpatient (REF) | payer MEDICARE, SELFPAY ==
[2023-07-15 11:22] LABS: MANUAL DIFF FLAG NO
[2023-07-15 12:12] LABS: Basophils Percent Auto 0.5 % (0-2); Eosinophils Absolute Auto 0.2 X10*3/uL (0.0-0.4); Eosinophils Percent Auto 2.4 % (0-4); Hematocrit 43.6 % (37.0-47.0); Hemoglobin 14.9 g/dl (12.0-16.0); Imm Gran Abs Auto 0.02 X10*3/uL (0.00-0.03); Imm Gran Pct Auto 0.3 % (0.0-0.4); Lymphocytes Absolute Auto 1.1 X10*3/uL (1.2-4.9); Lymphocytes Percent Auto 17.8 % (20-40); Mean Corpuscular HGB Conc 34.2 g/dl (31.0-35.0); Mean Corpuscular Volume 96.5 fL (80.0-98.0); Mean Platelet Volume 9.7 fL (9.4-12.3); Monocytes Absolute Auto 0.5 X10*3/uL (0.1-1.2); Monocytes Percent Auto 8.6 % (2-11); Neutrophils Absolute Auto 4.4 x10*3/uL (2.0-8.3); Neutrophils Percent Auto 70.4 % (45-73); Platelet Count 203 X10*3/uL (160-400); Red Blood Count 4.52 X10*6/uL (4.20-5.50); Red Cell Distribution Width 13.4 % (11.0-16.0); White Blood Count 6.3 X10*3/uL (4.8-10.8)
[2023-07-15 12:45] LABS: Estimated Average Glucose 111 mg/dL; Hemoglobin A1c % 5.5 % (<6.0)
[2023-07-15 13:34] LABS: Alanine Aminotransferase 38 U/L (0-31); Alkaline Phosphatase 63 U/L (39-117); Anion Gap 11 (12-20); Aspartate Amino Transferase 31 U/L (5-31); Bilirubin Total 0.5 mg/dL (0.0-1.0); Blood Urea Nitrogen 17 mg/dL (9-16); Calcium 9.6 mg/dL (8.4-10.2); Carbon Dioxide 29 mmol/L (22-29); Chloride 106 mmol/L (96-108); Cholesterol 171 mg/dL (<200); Estimated Glomerular Filt Rate > 60; Glucose Random 109 mg/dL (60-115); HDL Cholesterol 55 mg/dL (>40); LDL Cholesterol Calculated 101 mg/dL (<100); Potassium 3.9 mmol/L (3.3-5.1); Sodium 142 mmol/L (135-145); Total Protein 7.2 g/dL (6.5-8.0); Triglycerides 79 mg/dL (<150)
[2023-07-15 14:36] LABS: Folate 10.5 ng/mL (> or = 4.0); Vitamin B12 847 pg/mL (200-900)
== END 2023-07-15 11:09 | disposition home or self-care (01) ==
LOC: HO.LAB 11:08
PROVIDERS: PCP Internal Medicine; Visit Provider Internal Medicine
DX: E78.00 Pure hypercholesterolemia, unspecified (principal); M81.0 Age-related osteoporosis without current pathological fracture; R73.01 Impaired fasting glucose
CPT/HCPCS: 36415; 80053; 80061; 82306; 82607; 82746; 83036; 84439; 84443; 85025

== ENCOUNTER 2023-08-02 15:21 | Outpatient (AMB) | payer MEDICARE, SELFPAY ==
[2023-08-02 15:23] VITALS: BP 108/66; PULSE 86; O2SAT 97; BMI 24.8
--- NOTE | 2023-08-02 15:23 | A.OFFPC_ITS ---
Vital Signs 08/02/23 15:23 Height 5 ft 1 in Weight 131 lb 0.6 oz BMI 24.8 BP 108/66 Blood Pressure Location Lt brachial Position Sitting Pulse 86 Pulse Source Pulse Oximeter Pulse Oximetry (%) 97 Oxygen Delivery Method Room Air Intake Visit Reasons: osteoporosis Clam Digger Required: No Allergies lamotrigine [From LAMICTAL] Allergy (Intermediate, Verified 08/02/23 15:34) RASH Sulfa (Sulfonamide Antibiotics) [SULFA (SULFONAMIDE ANTIBIOTICS)] Allergy (Intermediate, Verified 08/02/23 15:34) UNKNOWN, upset stomach codeine [CODEINE] Allergy (Mild, Verified 08/02/23 15:34) NAUSEA & VOMITING, nausea and vomiting penicillin V [PENICILLIN V] Allergy (Mild, Verified 08/02/23 15:34) NAUSEA & VOMITING, sick to stomach, nausea and vomiting ciprofloxacin [Cipro] Allergy (Unknown, Verified 08/02/23 15:34) sick to stomach ibuprofen [From Motrin] Adverse Reaction (Verified 08/02/23 15:34) sick to stomach, nausea and vomiting Tobacco use date assessed: 08/02/23 Fall risk assessment: No Falls in past year Last assessed Fall Risk: 08/02/23 HPI osteoporosis HPI Details 73-year-old female with impaired glucose tolerance osteoporosis generalized anxiety disorder Sjogren's syndrome GERD and hypercholesterolemia last seen in March 2023. Patient's colonoscopy is up-to-date mammogram is due this month bone density is due. Patient is here for follow-up. Patient also follows up with urology nephrolithiasis continue to monitor with ultrasound of the kidney. just had bone density. results pending. complains of hand and feet numbness - [facility] Medical History (Updated 08/02/23 @ 16:26 by Darwin Hopper MD) Colon cancer screening Acute sinusitis Trigger finger of right hand Sjogren's syndrome Bile salt-induced diarrhea Osteoarthritis Irritable bowel syndrome GERD (gastroesophageal reflux disease) Essential tremor Hypercholesterolemia Calculus of left kidney Constipation Cholecystectomy planned Right knee meniscal tear Hepatitis Osteoporosis Umbilical hernia History of duodenal ulcer Liver hemangioma Surgical History Hx of tonsillectomy History of cholecystectomy Cataract History of knee surgery History of eyelid surgery H/O adenoidectomy History of appendectomy Family History Father Hypertension Prostate cancer Mother Hypertension Diabetes Dementia Maternal Aunt Gastric cancer Paternal Aunt Gastric cancer Ovarian cancer Paternal Uncle Myocardial infarction Social History Household Members: Spouse Housing: House Do you presently have visiting nurse or other home services: No Alcohol intake: never Patient Tobacco Use Status: Never used Tobacco e-Cigarette/Vaping Use: Never Used Second Hand Smoke Exposure: No service: No Current occupational status: retired Cognitive needs: No Hearing needs: No Vision needs: Yes Questionnaire PHQ-9 Over the last 2 weeks, how often have you been bothered by any of the following problems? 1. Little interest or pleasure in doing things: several days 2. Feeling down, depressed, or hopeless: several days 3. Trouble falling or staying asleep, or sleeping too much: not at all 4. Feeling tired or having little energy: not at all 5. Poor appetite or overeating: not at all 6. Feeling bad about yourself - or that you are a failure or have let yourself or your family down: not at all 7. Trouble concentrating on things, such as reading the newspaper or watching television: not at all 8. Moving or speaking so slowly that other people could have noticed. Or the opposite - being so fidgety or restless that you have been moving around a lot more than usual: not at all 9. Thoughts that you would be better off or of hurting yourself in some way: not at all Total score: 2 Depression Screening Interpretation: Positive Depression Screening Done: Yes Source: Developed by Drs. Benny Marcano, Gina Gonzalez, Obi Guajardo and colleagues, with an educational garcia from [employer]. Thrive Questionnaire Date Thrive assessed: 08/02/23 AUDIT C Alcohol Use Questionnaire (AUDIT-C) 1. How often do you have a drink containing alcohol?: Never 2. How many drinks containing alcohol do you have on a typical day when you are drinking?: 1 or 2 3. How often do you have six or more drinks on one occasion?: Never Total Score: 0 Score Reviewed/Action Taken: No BENITA-7 AMB Questionnaire BENITA-7 Date BENITA - 7 assessed: 08/02/23 Source: Developed by Drs. Benny Marcano, Gina Gonzalez, Obi Guajardo and colleagues, with an educational garcia from [employer]. Physical exam (Primary Care) Vital Signs: Last Vital Signs Pulse 86 08/02/23 15:23 BP 108/66 08/02/23 15:23 Pulse Ox 97 08/02/23 15:23 Oxygen Delivery Method Room Air 08/02/23 15:23 BMI result Body Mass Index 24.8 Tobacco/Smoking Status: Tobacco use Status Tobacco use date assessed 08/02/23 08/02/23 15:25 Patient Tobacco Use Status Never used Tobacco 08/02/23 15:25 e-Cigarette/Vaping Use Never Used 08/02/23 15:25 PHQ-9: PHQ-9 Score PHQ-9: Total score 2 08/02/23 15:25 Depression Screening Interpretation: Positive Thrive Assessment: Date of Thrive Assessment Date Thrive assessed 08/02/23 08/02/23 15:25 Const General: alert; No acute distress Eyes Conjunctivae: conjunctivae normal Resp Auscultation: clear to auscultation bilaterally Cardio Rate: regular rate Rhythm: regular rhythm GI Inspection: Yes normal to inspection Extrem General: Yes normal to inspection and No edema Assessment and Plan Assessment & Plan (1) Osteoporosis: Comment: 2020 Code(s): M81.0 - Age-related osteoporosis without current pathological fracture Plan: Keep active, discussed about calcium and vitamin-D (2) Hypercholesterolemia: Code(s): E78.00 - Pure hypercholesterolemia, unspecified Plan: Avoid fried foods, chicken skin, eggs, butter margarine, pastries and meat. Be it pork or beef they have a lot of cholesterol LDL goal of less than 130 and triglyceride of less than 150 (3) GERD (gastroesophageal reflux disease): Code(s): K21.9 - Gastro-esophageal reflux disease without esophagitis Qualifiers: Esophagitis presence: without esophagitis Qualified Code(s): K21.9 - Gastro-esophageal reflux disease without esophagitis Plan: Avoid the foods that causes that usually spicy foods, tomato products, juices, coffee, soda and foods that your sensitive to. After eating do not lie down, allow 3-4 hours before in lie down. And keep the head of bed above 30 degrees to avoid the acid from going up. (4) Sjogren's syndrome: Code(s): M35.00 - Sjogren syndrome, unspecified Qualifiers: Sjogren's organ involvement: unspecified organ involvement Qualified Code(s): M35.00 - Sicca syndrome, unspecified (5) Nephrolithiasis: Comment: 04/2022 Code(s): N20.0 - Calculus of kidney Plan: Keep well hydrated patient follows up with urology (6) Generalized anxiety disorder: Comment: Dr. Cortes Q2-3 months and counselling Q 2-3 weeks Code(s): F41.1 - Generalized anxiety disorder Plan: Continue counseling and therapy (7) Numbness in feet: Code(s): R20.0 - Anesthesia of skin Plan: nerve conduction test advised (8) Hoarseness: Code(s): R49.0 - Dysphonia Plan: trial of allergy meds and if not better- will refer to ENT (9) Stye: Comment: R eye Code(s): H00.019 - Hordeolum externum unspecified eye, unspecified eyelid Orders: Orders NE electromyogram (EMG) Today R20.0 - Anesthesia of skin NE nerve conduction velocity Today R20.0 - Anesthesia of skin Medications: New erythromycin Right eye 0.5 inches ophthalmic (eye) BID 3.5 grams 0RF H00.019 - Hordeolum externum unspecified eye, unspecified eyelid Coding Level of Care Code Est Pt Level 4 (02931) Diagnoses Osteoporosis M81.0 Hypercholesterolemia E78.00 Gastroesophageal reflux disease without esophagitis K21.9 Esophagitis presence: without esophagitis Sjogren's syndrome, with unspecified organ involvement M35.00 Sjogren's organ involvement: unspecified organ involvement Nephrolithiasis N20.0 Generalized anxiety disorder F41.1 Numbness in feet R20.0 Hoarseness R49.0 Stye H00.019
== END 2023-08-02 16:34 | disposition home or self-care (01) ==
PROVIDERS: PCP Internal Medicine; Visit Provider Internal Medicine
DX: M81.0 Age-related osteoporosis without current pathological fracture (principal); E78.00 Pure hypercholesterolemia, unspecified; K21.9 Gastro-esophageal reflux disease without esophagitis; M35.00 Sjogren syndrome, unspecified; N20.0 Calculus of kidney; F41.1 Generalized anxiety disorder; R20.0 Anesthesia of skin; R49.0 Dysphonia; H00.019 Hordeolum externum unspecified eye, unspecified eyelid
CPT/HCPCS: 99214

== ENCOUNTER 2023-09-12 11:52 | Outpatient (AMB) | payer MEDICARE, SELFPAY ==
[2023-09-12 12:41] VITALS: BP 126/70; PULSE 100; TEMP 37.1; O2SAT 95; BMI 25.5
--- NOTE | 2023-09-12 12:41 | MHC.OFFWIV ---
Intake Vital Signs 09/12/23 12:41 Height 5 ft 1 in Weight 135 lb BMI 25.5 BP 126/70 Blood Pressure Location Lt brachial Position Sitting Pulse 100 Pulse Source Pulse Oximeter Temp 98.8 F Temp Source Temporal Artery Scan Pulse Oximetry (%) 95 Oxygen Delivery Method Room Air Intake Visit Reasons: EP LT ear Wax removal Intake Note: pt is here today for lft ear wax removal strated 1 weeks ago Patient Tobacco Use Status: Never used Tobacco Allergies lamotrigine [From LAMICTAL] Allergy (Intermediate, Verified 09/12/23 12:41) RASH Sulfa (Sulfonamide Antibiotics) [SULFA (SULFONAMIDE ANTIBIOTICS)] Allergy (Intermediate, Verified 09/12/23 12:41) UNKNOWN, upset stomach codeine [CODEINE] Allergy (Mild, Verified 09/12/23 12:41) NAUSEA & VOMITING, nausea and vomiting penicillin V [PENICILLIN V] Allergy (Mild, Verified 09/12/23 12:41) NAUSEA & VOMITING, sick to stomach, nausea and vomiting ciprofloxacin [Cipro] Allergy (Unknown, Verified 09/12/23 12:41) sick to stomach ibuprofen [From Motrin] Adverse Reaction (Verified 09/12/23 12:41) sick to stomach, nausea and vomiting Do you need a note to return to daycare/school/sports/work: No HPI HPI Comments History of Present Illness Details presents to walkin today for sick visit She reports feeling left ear is blocked with wax Reports chronic tinnitus and buzzing in the ear. She has an appointment with ENT in October for this Denies hearing loss, drainage from ear, dizziness, syncope. Patient denies sore throat, cough, fever, vomiting, diarrhea, headache. [facility] Medical History (Updated 09/12/23 @ 13:44 by Alecia Burt APRN, BACK SHOE WORKER) Colon cancer screening Acute sinusitis Trigger finger of right hand Sjogren's syndrome Bile salt-induced diarrhea Osteoarthritis Irritable bowel syndrome GERD (gastroesophageal reflux disease) Essential tremor Hypercholesterolemia Calculus of left kidney Constipation Cholecystectomy planned Right knee meniscal tear Hepatitis Osteoporosis Umbilical hernia History of duodenal ulcer Liver hemangioma Surgical History Hx of tonsillectomy History of cholecystectomy Cataract History of knee surgery History of eyelid surgery H/O adenoidectomy History of appendectomy Family History Father Hypertension Prostate cancer Mother Hypertension Diabetes Dementia Maternal Aunt Gastric cancer Paternal Aunt Gastric cancer Ovarian cancer Paternal Uncle Myocardial infarction Social History Household Members: Spouse Housing: House Do you presently have visiting nurse or other home services: No Alcohol intake: never Patient Tobacco Use Status: Never used Tobacco e-Cigarette/Vaping Use: Never Used Second Hand Smoke Exposure: No service: No Current occupational status: retired Cognitive needs: No Hearing needs: No Vision needs: Yes Review of Systems Const All systems reviewed & are unremarkable except as noted in HPI and below Physical Exam Vital Signs: Last Vital Signs Temp 98.8 F 09/12/23 12:41 Pulse 100 09/12/23 12:41 BP 126/70 09/12/23 12:41 Pulse Ox 95 09/12/23 12:41 Oxygen Delivery Method Room Air 09/12/23 12:41 BMI result Body Mass Index 25.5 General: awake, alert, oriented. Answers questions appropriately. Fully engaged in examination. Skin: warm, dry, intact HEENT: Normocephalic. Hearing intact. Left ear positive cerumen impaction, unable to visualize TM. Right TM normal to visual inspection. Cardiac: External chest normal in appearance. Respiratory: No cough, audible wheezing or stridor. Abdomen: without gross distension. MS: No obvious swelling or deformities. Neurological: Oriented to person, place, time and situation. Thought process intact. Psychiatric: Appropriate mood and affect. Good judgment and insight. Left ear flushed, cerumen cleared. TM intact without erythema, exudate or effusion. Assessment & Plan Assessment & Plan (1) Impacted cerumen of left ear: Code(s): H61.22 - Impacted cerumen, left ear Plan Cerumen impaction left ear flush with good results Patient denies untoward effects Follow up with ENT as planned All questions and concerns were answered patient agrees with the plan Follow-up with PCP or return here for any new or worsening symptoms Coding Level of Care Code Est Pt Level 3 (24308) Diagnoses Impacted cerumen of left ear H61.22
== END 2023-09-12 13:42 | disposition home or self-care (01) ==
PROVIDERS: PCP Internal Medicine; Visit Provider Registered Nurse Emergency
DX: H61.22 Impacted cerumen, left ear (principal)
CPT/HCPCS: 99213

== ENCOUNTER 2023-11-04 14:16 | Outpatient (AMB) | payer MEDICARE, SELFPAY ==
[2023-11-04 14:30] VITALS: BP 102/70; PULSE 88; O2SAT 96; BMI 25.1
--- NOTE | 2023-11-04 14:30 | A.OFFPC_ITS ---
Vital Signs 11/04/23 14:30 Height 5 ft 1 in Weight 133 lb BMI 25.1 BP 102/70 Blood Pressure Location Rt brachial Position Sitting Pulse 88 Pulse Source Pulse Oximeter Pulse Oximetry (%) 96 Oxygen Delivery Method Room Air Intake Visit Reasons: 3 Month F/U Glass Or Mirror Inspector Required: No Accompanied by: Spouse Allergies lamotrigine [From LAMICTAL] Allergy (Intermediate, Verified 11/04/23 14:45) RASH Sulfa (Sulfonamide Antibiotics) [SULFA (SULFONAMIDE ANTIBIOTICS)] Allergy (Intermediate, Verified 11/04/23 14:45) UNKNOWN, upset stomach codeine [CODEINE] Allergy (Mild, Verified 11/04/23 14:45) NAUSEA & VOMITING, nausea and vomiting penicillin V [PENICILLIN V] Allergy (Mild, Verified 11/04/23 14:45) NAUSEA & VOMITING, sick to stomach, nausea and vomiting ciprofloxacin [Cipro] Allergy (Unknown, Verified 11/04/23 14:45) sick to stomach ibuprofen [From Motrin] Adverse Reaction (Verified 11/04/23 14:45) sick to stomach, nausea and vomiting Tobacco use date assessed: 08/02/23 Fall risk assessment: No Falls in past year Last assessed Fall Risk: 11/04/23 Dental Screening Dental Screen Date: 11/04/23 Did you have a dental visit in the last 12 months?: Yes Did you have a dental problem in the last 6 months where you did not have access to dental care?: No Was dental information given to patient?: Patient has dentist HPI 3 Month F/U HPI Details 73-year-old female with hypercholesterol emia GERD Sjogren's disease nephrolithiasis generalized anxiety disorder last seen in July 2023. Patient is here for follow-up. Patient is colonoscopy July 2014 mammogram up-to-date bone density patient was recently [facility] for impacted cerumen had flushing. PAtient seeing Dr. Diana- has had the bone density. hoarseness for 6 months and will see Dr. Funk. complains of R lowert back pain deny fall or trauma, 2 weeks no rash wsas pulling shades but not doing anymore [facility] Medical History (Updated 11/04/23 @ 15:13 by Darwin Hopper MD) Colon cancer screening Acute sinusitis Trigger finger of right hand Sjogren's syndrome Bile salt-induced diarrhea Osteoarthritis Irritable bowel syndrome GERD (gastroesophageal reflux disease) Essential tremor Hypercholesterolemia Calculus of left kidney Constipation Cholecystectomy planned Right knee meniscal tear Hepatitis Osteoporosis Umbilical hernia History of duodenal ulcer Liver hemangioma Surgical History Hx of tonsillectomy History of cholecystectomy Cataract History of knee surgery History of eyelid surgery H/O adenoidectomy History of appendectomy Family History Father Hypertension Prostate cancer Mother Hypertension Diabetes Dementia Maternal Aunt Gastric cancer Paternal Aunt Gastric cancer Ovarian cancer Paternal Uncle Myocardial infarction Social History Household Members: Spouse Housing: House Do you presently have visiting nurse or other home services: No Alcohol intake: never Patient Tobacco Use Status: Never used Tobacco e-Cigarette/Vaping Use: Never Used Second Hand Smoke Exposure: No service: No Current occupational status: retired Cognitive needs: No Hearing needs: No Vision needs: Yes Questionnaire Thrive Questionnaire Date Thrive assessed: 08/02/23 BENITA-7 AMB Questionnaire BENITA-7 Date BENITA - 7 assessed: 08/02/23 Source: Developed by Drs. Benny Marcano, Gina Gonzalez, Obi Guajardo and colleagues, with an educational garcia from [email or web address]. Physical exam (Primary Care) Vital Signs: Oxygen Delivery Method Room Air 11/04/23 14:30 BMI result Body Mass Index 25.1 Tobacco/Smoking Status: Tobacco use Status Tobacco use date assessed 08/02/23 11/04/23 14:32 Patient Tobacco Use Status Never used Tobacco 11/04/23 14:32 e-Cigarette/Vaping Use Never Used 11/04/23 14:32 Thrive Assessment: Date of Thrive Assessment Date Thrive assessed 08/02/23 11/04/23 14:32 Const General: alert; No acute distress Eyes Conjunctivae: conjunctivae normal Resp Auscultation: clear to auscultation bilaterally Cardio Rate: regular rate Rhythm: regular rhythm GI Inspection: Yes normal to inspection Extrem General: Yes normal to inspection and No edema Assessment and Plan Assessment & Plan (1) Hypercholesterolemia: Code(s): E78.00 - Pure hypercholesterolemia, unspecified Plan: Avoid fried foods, chicken skin, eggs, butter margarine, pastries and meat. Be it pork or beef they have a lot of cholesterol on simvastatin 5 mg once a day June 2023 last blood work (2) GERD (gastroesophageal reflux disease): Code(s): K21.9 - Gastro-esophageal reflux disease without esophagitis Qualifiers: Esophagitis presence: without esophagitis Qualified Code(s): K21.9 - Gastro-esophageal reflux disease without esophagitis Plan: Avoid the foods that causes that usually spicy foods, tomato products, juices, coffee, soda and foods that your sensitive to. After eating do not lie down, allow 3-4 hours before in lie down. And keep the head of bed above 30 degrees to avoid the acid from going up. Takes omeprazole 20 mg once a day (3) Sjogren's syndrome: Code(s): M35.00 - Sjogren syndrome, unspecified Qualifiers: Sjogren's organ involvement: unspecified organ involvement Qualified Code(s): M35.00 - Sicca syndrome, unspecified Plan: Stable continue to follow-up with Rheumatology (4) Osteoporosis: Comment: 2020 Code(s): M81.0 - Age-related osteoporosis without current pathological fracture Plan: Bone density has been requested but not done yet. (5) Generalized anxiety disorder: Comment: Dr. Cortes Q2-3 months and counselling Q 2-3 weeks Code(s): F41.1 - Generalized anxiety disorder Plan: Continue with counseling and therapy on alprazolam duloxetine (6) Hoarseness: Code(s): R49.0 - Dysphonia Plan: will be seeing Dr. Funk this tuesday (7) Pain in lower back: Code(s): M54.5 - Low back pain Qualifiers: Chronicity: chronic Back pain laterality: midline Sciatica presence: without sciatica Qualified Code(s): M54.5 - Low back pain; G89.29 - Other chronic pain (8) Hip pain, right: Code(s): M25.551 - Pain in right hip (9) Lower back pain: Code(s): M54.50 - Low back pain, unspecified Orders: Orders XR lumbar spine 2-3V Today M54.50 - Low back pain, unspecified XR hip RT w PEL1V Today M25.551 - Pain in right hip Coding Level of Care Code Est Pt Level 4 (94116) Diagnoses Hypercholesterolemia E78.00 Gastroesophageal reflux disease without esophagitis K21.9 Esophagitis presence: without esophagitis Sjogren's syndrome, with unspecified organ involvement M35.00 Sjogren's organ involvement: unspecified organ involvement Osteoporosis M81.0 Generalized anxiety disorder F41.1 Hoarseness R49.0 Chronic midline low back pain without sciatica M54.5; G89.29 Chronicity: chronic Back pain laterality: midline Sciatica presence: without sciatica Hip pain, right M25.551
== END 2023-11-04 15:26 | disposition home or self-care (01) ==
PROVIDERS: PCP Internal Medicine; Visit Provider Internal Medicine
DX: E78.00 Pure hypercholesterolemia, unspecified (principal); K21.9 Gastro-esophageal reflux disease without esophagitis; M35.00 Sjogren syndrome, unspecified; M81.0 Age-related osteoporosis without current pathological fracture; F41.1 Generalized anxiety disorder; R49.0 Dysphonia; M54.50 Low back pain, unspecified; G89.29 Other chronic pain; M25.551 Pain in right hip
CPT/HCPCS: 99214

== ENCOUNTER 2023-11-04 15:40 | Outpatient (REF) | payer MEDICARE, SELFPAY ==
--- NOTE | ~2023-11-04 | XR_ITS ---
EXAMINATION: XR HIP, RIGHT CLINICAL INFORMATION: Right hip pain. COMPARISON: CT abdomen/pelvis dated 08/16/2020. TECHNIQUE: AP view the pelvis as well as AP and frog-leg lateral views of the right hip. FINDINGS: No acute fracture or dislocation. Mild bilateral hip joint space narrowing with small marginal osteophytes. No osseous erosion. No abnormal soft tissue calcification. XR/XR hip RT w PEL1V IMPRESSION: Mild bilateral hip osteoarthritis.
--- NOTE | ~2023-11-04 | XR_ITS ---
EXAMINATION: XR LUMBOSACRAL SPINE CLINICAL INFORMATION: Low back pain, patient states pain in right hip and lower back, no injury. COMPARISON: 08/04/2015 TECHNIQUE: Three views of the lumbosacral spine. FINDINGS: Levoscoliosis of the lumbar spine with multilevel degenerative changes. Surgical clips in the right upper quadrant. Degenerative changes in the bilateral sacroiliac joints. Bones are diffusely demineralized. Facet arthritis in the mid to lower lumbar spine. Multilevel lumbar spondylosis with loss of disc space height most notable at L4-L5 and L5-S1. Minimal grade 1 retrolisthesis of L1 on L2. Grade 1 anterolisthesis of L4 on L5. Minimal grade 1 anterolisthesis of L5 on S1. XR/XR lumbar spine 2-3V IMPRESSION: Progression of multilevel lumbar spondylosis most notable at L4-L5 and L5-S1.
== END 2023-11-04 15:41 | disposition home or self-care (01) ==
LOC: HO.XRAY 15:40
PROVIDERS: PCP Internal Medicine; Visit Provider Internal Medicine
DX: M54.50 Low back pain, unspecified (principal); M25.551 Pain in right hip
CPT/HCPCS: 72100; 73502

== ENCOUNTER 2024-02-29 12:53 | Outpatient (AMB) | payer MEDICARE, SELFPAY ==
--- NOTE | 2024-02-29 12:55 | AM.OFFWIN_ITS ---
Intake Vital Signs 02/29/24 12:58 Height 5 ft 1 in Weight 132 lb BMI 24.9 BP 106/72 Blood Pressure Location Rt brachial Position Sitting Pulse 81 Pulse Source Pulse Oximeter Temp 98.7 F Temp Source Oral Pulse Oximetry (%) 95 Oxygen Delivery Method Room Air Intake Visit Reasons: EP headache Intake Note: pt c/o headache. Started a couple weeks ago. Intermittent Patient Tobacco Use Status: Never used Tobacco Allergies lamotrigine [From LAMICTAL] Allergy (Intermediate, Verified 02/29/24 12:56) RASH Sulfa (Sulfonamide Antibiotics) [SULFA (SULFONAMIDE ANTIBIOTICS)] Allergy (Intermediate, Verified 02/29/24 12:56) UNKNOWN, upset stomach codeine [CODEINE] Allergy (Mild, Verified 02/29/24 12:56) NAUSEA & VOMITING, nausea and vomiting penicillin V [PENICILLIN V] Allergy (Mild, Verified 02/29/24 12:56) NAUSEA & VOMITING, sick to stomach, nausea and vomiting ciprofloxacin [Cipro] Allergy (Unknown, Verified 02/29/24 12:56) sick to stomach ibuprofen [From Motrin] Adverse Reaction (Verified 02/29/24 12:56) sick to stomach, nausea and vomiting Do you need a note to return to daycare/school/sports/work: No HPI EP headache HPI Details This note is constructed using voice recognition software. While every effort has been made to ensure accuracy, mailing machine operator errors may have been included. The patient is a 73 year old female who presents to the clinic today with intermittent posterior headaches for the past several weeks. She feels they are stress response as she has had a lot of extra stress. She denies light headedness, dizziness, confusion, worsening pain, constant pain. She notes she did start treatment for depression about 3 months ago, with duloxetine. [facility] Medical History (Updated 11/04/23 @ 15:13 by Darwin Hopper MD) Colon cancer screening Acute sinusitis Trigger finger of right hand Sjogren's syndrome Bile salt-induced diarrhea Osteoarthritis Irritable bowel syndrome GERD (gastroesophageal reflux disease) Essential tremor Hypercholesterolemia Calculus of left kidney Constipation Cholecystectomy planned Right knee meniscal tear Hepatitis Osteoporosis Umbilical hernia History of duodenal ulcer Liver hemangioma Surgical History Hx of tonsillectomy History of cholecystectomy Cataract History of knee surgery History of eyelid surgery H/O adenoidectomy History of appendectomy Family History Father Hypertension Prostate cancer Mother Hypertension Diabetes Dementia Maternal Aunt Gastric cancer Paternal Aunt Gastric cancer Ovarian cancer Paternal Uncle Myocardial infarction Social History Household Members: Spouse Housing: House Do you presently have visiting nurse or other home services: No Alcohol intake: never Patient Tobacco Use Status: Never used Tobacco e-Cigarette/Vaping Use: Never Used Second Hand Smoke Exposure: No service: No Current occupational status: retired Cognitive needs: No Hearing needs: No Vision needs: Yes Review of Systems Const All systems reviewed & are unremarkable except as noted in HPI and below Physical Exam Vital Signs: Last Vital Signs Temp 98.7 F 02/29/24 12:58 Pulse 81 02/29/24 12:58 BP 106/72 02/29/24 12:58 Pulse Ox 95 02/29/24 12:58 Oxygen Delivery Method Room Air 02/29/24 12:58 BMI result Body Mass Index 24.9 Const General: cooperative, healthy appearing, comfortable, no acute distress and alert Orientation/consciousness: patient oriented x3 Limitations: no limitations HEENT Head: Yes normal to inspection and Yes normocephalic Ears: hearing grossly normal bilaterally General nose exam: Normal external nose present Face and sinus: Yes normal facial exam and Yes sinuses nontender Mouth: Normal oral and palatal mucosa present and tongue normal Teeth and gingiva: dentition normal Throat: Yes posterior oropharynx normal Eyes General: appearance normal, both eyes and all related structures Neck Neck: Yes normal visual inspection, Yes full ROM and Yes no lymphadenopathy Resp Effort & Inspection: normal respiratory effort and able to speak in complete sentences Auscultation: clear to auscultation bilaterally Cardio Jugular venous distension: no JVD Palpation: normal PMI Rate: regular rate Heart sounds: S1 normal heart sound present, S2 normal heart sound present, no click, no gallops, no murmurs and no rubs GI Inspection: Yes normal to inspection Palpation (GI): Soft to palpation and nontender Percussion: Yes normal to percussion Auscultation: normal bowel sounds Skin General skin exam: no rashes or lesions noted, elasticity normal and turgor normal Neuro General: patient oriented x3 Cranial nerves: Yes CN's II-XII intact bilaterally Extrem General: Yes normal to inspection, Yes full ROM, Yes capillary refill normal and Yes normal exam except as noted Psych Appearance: grossly normal Mental Status: mental status grossly normal Speech and movement: Normal speech and movement present Affect: normal affect Assessment & Plan Assessment & Plan (1) Tension headache: Code(s): G44.209 - Tension-type headache, unspecified, not intractable Plan: Patient's history and physical examination consistent with likely tension headaches. Discussed typical treatment for tension headaches, including use of her duloxetine. Advised anti-inflammatory, which he is unable to tolerate ibuprofen. We will try a short burst of prednisone for anti-inflammatory effects. Advised continuation of Tylenol. Consider heat, ice, and stretching to the area. Advised follow up with PCP with worsening or failure to resolve. Plan See above for full details and plan. Medications: New prednisone 40 mg (2 x 20 mg) PO DAILY 3 days 6 tabs 0RF Coding Level of Care Code Est Pt Level 3 (53697) Diagnoses Tension headache G44.209
[2024-02-29 12:58] VITALS: BP 106/72; PULSE 81; TEMP 37.1; O2SAT 95; BMI 24.9
== END 2024-02-29 13:40 | disposition home or self-care (01) ==
PROVIDERS: PCP Internal Medicine; Visit Provider Registered Nurse
DX: G44.209 Tension-type headache, unspecified, not intractable (principal)
CPT/HCPCS: 99213

== ENCOUNTER 2024-03-26 14:18 | Outpatient (AMB) | payer MEDICARE, SELFPAY ==
[2024-03-26 14:21] VITALS: BP 112/70; PULSE 71; O2SAT 94; BMI 25.3
--- NOTE | 2024-03-26 14:21 | A.OFFPC_ITS ---
Vital Signs 03/26/24 14:21 Height 5 ft 1 in Weight 134 lb BMI 25.3 BP 112/70 Blood Pressure Location Rt brachial Position Sitting Pulse 71 Pulse Source Pulse Oximeter Pulse Oximetry (%) 94 Oxygen Delivery Method Room Air Intake Visit Reasons: gerd Copy And Print Associate Required: No Accompanied by: Spouse Allergies lamotrigine [From LAMICTAL] Allergy (Intermediate, Verified 03/26/24 14:26) RASH Sulfa (Sulfonamide Antibiotics) [SULFA (SULFONAMIDE ANTIBIOTICS)] Allergy (Intermediate, Verified 03/26/24 14:26) UNKNOWN, upset stomach codeine [CODEINE] Allergy (Mild, Verified 03/26/24 14:26) NAUSEA & VOMITING, nausea and vomiting penicillin V [PENICILLIN V] Allergy (Mild, Verified 03/26/24 14:26) NAUSEA & VOMITING, sick to stomach, nausea and vomiting ciprofloxacin [Cipro] Allergy (Unknown, Verified 03/26/24 14:26) sick to stomach ibuprofen [From Motrin] Adverse Reaction (Verified 03/26/24 14:26) sick to stomach, nausea and vomiting Tobacco use date assessed: 08/02/23 Fall risk assessment: No Falls in past year Last assessed Fall Risk: 03/26/24 Dental Screening Dental Screen Date: 11/04/23 HPI gerd HPI Details 73-year-old female with Sjogren's syndro me GERD hypercholesterolemia generalized anxiety disorder coming in for follow-up. Last seen in October 2023. Patient's last colonoscopy was in August 2020. Five years patient's mammogram is up-to-date bone density is up-to-date. Patient was seen in the Urgent Center in February for complaining of headache patient was stating a lot of stress patient was also started on depression treatment with duloxetine. Patient was prescribed prednisone. X-ray was done for the hip in October showing bilateral hip osteoarthritis lower back x-ray showing progression of multilevel lumbar spondylosis L4-L5 and L5-S1. . Sees Psych Dr. Cortes Q 3 weeks , ORTIZ occipital to a band in the afternoon. compared of low back pain , deny fall or trauma. [facility] Medical History (Updated 03/26/24 @ 14:53 by Darwin Hopper MD) Post-nasal drip Bronchitis Numbness in feet Impacted cerumen of left ear Hoarseness Stye Hoarseness Hip pain, right Lower back pain Colon cancer screening Acute sinusitis Trigger finger of right hand Sjogren's syndrome Bile salt-induced diarrhea Osteoarthritis Irritable bowel syndrome GERD (gastroesophageal reflux disease) Essential tremor Hypercholesterolemia Calculus of left kidney Constipation Cholecystectomy planned Right knee meniscal tear Hepatitis Osteoporosis Umbilical hernia History of duodenal ulcer Liver hemangioma Surgical History Hx of tonsillectomy History of cholecystectomy Cataract History of knee surgery History of eyelid surgery H/O adenoidectomy History of appendectomy Family History Father Hypertension Prostate cancer Mother Hypertension Diabetes Dementia Maternal Aunt Gastric cancer Paternal Aunt Gastric cancer Ovarian cancer Paternal Uncle Myocardial infarction Social History Household Members: Spouse Housing: House Do you presently have visiting nurse or other home services: No Alcohol intake: never Patient Tobacco Use Status: Never used Tobacco e-Cigarette/Vaping Use: Never Used Second Hand Smoke Exposure: No service: No Current occupational status: retired Cognitive needs: No Hearing needs: No Vision needs: Yes Questionnaire Thrive Questionnaire Date Thrive assessed: 08/02/23 Are you currently unemployed and looking for a job?: No AUDIT C Alcohol Use Questionnaire (AUDIT-C) 2. How many drinks containing alcohol do you have on a typical day when you are drinking?: 1 or 2 3. How often do you have six or more drinks on one occasion?: Never Total Score: 0 BENITA-7 AMB Questionnaire BENITA-7 Date BENITA - 7 assessed: 08/02/23 Source: Developed by Drs. Benny Marcano, Gina Gonzalez, Obi Guajardo and colleagues, with an educational garcia from [employer]. Physical exam (Primary Care) BMI result Body Mass Index 25.3 Tobacco/Smoking Status: Tobacco use Status Tobacco use date assessed 08/02/23 03/26/24 14:22 Patient Tobacco Use Status Never used Tobacco 03/26/24 14:22 e-Cigarette/Vaping Use Never Used 03/26/24 14:22 Thrive Assessment: Date of Thrive Assessment Date Thrive assessed 08/02/23 03/26/24 14:22 Const General: alert; No acute distress Eyes Conjunctivae: conjunctivae normal Resp Auscultation: clear to auscultation bilaterally Cardio Rate: regular rate Rhythm: regular rhythm GI Inspection: Yes normal to inspection Extrem General: Yes normal to inspection and No edema Assessment and Plan Assessment & Plan (1) Lumbar spondylosis: Code(s): M47.816 - Spondylosis without myelopathy or radiculopathy, lumbar region Plan: Keep active (2) Hip osteoarthritis: Code(s): M16.9 - Osteoarthritis of hip, unspecified Plan: Keep active and do stretches. (3) Sjogren's syndrome: Code(s): M35.00 - Sjogren syndrome, unspecified Qualifiers: Sjogren's organ involvement: unspecified organ involvement Qualified Code(s): M35.00 - Sicca syndrome, unspecified Plan: Continue to follow-up with Rheumatology (4) GERD (gastroesophageal reflux disease): Code(s): K21.9 - Gastro-esophageal reflux disease without esophagitis Qualifiers: Esophagitis presence: without esophagitis Qualified Code(s): K21.9 - Gastro-esophageal reflux disease without esophagitis Plan: Avoid the foods that causes that usually spicy foods, tomato products, juices, coffee, soda and foods that your sensitive to. After eating do not lie down, allow 3-4 hours before in lie down. And keep the head of bed above 30 degrees to avoid the acid from going up. (5) Hypercholesterolemia: Code(s): E78.00 - Pure hypercholesterolemia, unspecified Plan: Avoid fried foods, chicken skin, eggs, butter margarine, pastries and meat. Be it pork or beef they have a lot of cholesterol LDL goal of less than 130 and triglyceride of less than 150. Blood work in about 4 months (6) Generalized anxiety disorder: Comment: Dr. Cortes Q2-3 months and counselling Q 2-3 weeks Code(s): F41.1 - Generalized anxiety disorder Plan: Continue with counseling and therapy (7) Hypoxemia: Code(s): R09.02 - Hypoxemia Orders: Orders Complete Blood Count Auto Diff 3 Months E78.00 - Pure hypercholesterolemia, unspecified Vitamin B12 and Folate 3 Months E78.00 - Pure hypercholesterolemia, unspecified Vitamin D 25-OH Total 3 Months E78.00 - Pure hypercholesterolemia, unspecified Erythrocyte Sedimentation Rate 3 Months E78.00 - Pure hypercholesterolemia, unspecified C Reactive Protein 3 Months E78.00 - Pure hypercholesterolemia, unspecified Blood Urea Nitrogen Today E78.00 - Pure hypercholesterolemia, unspecified Complete Blood Count Auto Diff Today E78.00 - Pure hypercholesterolemia, unspecified XR chest 2V Today R09.02 - Hypoxemia Comprehensive Met. Panel 3 Months E78.00 - Pure hypercholesterolemia, unspecified Free T4 (Free Thyroxine) 3 Months E78.00 - Pure hypercholesterolemia, unspecified Thyroid Stimulating Hormone 3 Months E78.00 - Pure hypercholesterolemia, unspecified Lipid Panel 3 Months E78.00 - Pure hypercholesterolemia, unspecified Medications: Discontinued prednisone Discontinued Reason: Doctor's Order 40 mg (2 x 20 mg) PO DAILY 3 days 6 tabs 0RF Coding Level of Care Code Est Pt Level 4 (67830) Diagnoses Lumbar spondylosis M47.816 Hip osteoarthritis M16.9 Sjogren's syndrome, with unspecified organ involvement M35.00 Sjogren's organ involvement: unspecified organ involvement Gastroesophageal reflux disease without esophagitis K21.9 Esophagitis presence: without esophagitis Hypercholesterolemia E78.00 Generalized anxiety disorder F41.1 Hypoxemia R09.02
== END 2024-03-26 15:05 | disposition home or self-care (01) ==
PROVIDERS: PCP Internal Medicine; Visit Provider Internal Medicine
DX: M47.816 Spondylosis without myelopathy or radiculopathy, lumbar region (principal); M16.9 Osteoarthritis of hip, unspecified; M35.00 Sjogren syndrome, unspecified; K21.9 Gastro-esophageal reflux disease without esophagitis; E78.00 Pure hypercholesterolemia, unspecified; F41.1 Generalized anxiety disorder; R09.02 Hypoxemia

== ENCOUNTER 2024-03-26 14:18 | Outpatient (REF) | payer MEDICARE, SELFPAY ==
--- NOTE | ~2024-03-26 | XR_ITS ---
EXAMINATION: XR CHEST CLINICAL INFORMATION: R09.02 - Hypoxemia COMPARISON: 07/30/2019. TECHNIQUE: 2 views of the chest were obtained. FINDINGS: The cardiac, hilar, and mediastinal contours are normal. The lungs demonstrate minimal bibasilar linear type atelectasis. Lungs otherwise clear. There is no pneumothorax or pleural effusion. There is no focal osseous or soft tissue abnormality. Cholecystectomy clips noted. XR/XR chest 2V IMPRESSION: No active pulmonary disease. No significant interval change. Electronically signed by: Rustam Carter MD 06/03/2024 03:46 PM EST
[2024-03-26 15:44] LABS: MANUAL DIFF FLAG NO
[2024-03-26 15:48] LABS: Basophils Percent Auto 0.5 % (0-2); Eosinophils Absolute Auto 0.3 X10*3/uL (0.0-0.4); Eosinophils Percent Auto 5.5 % (0-4); Hematocrit 42.8 % (37.0-47.0); Hemoglobin 14.4 g/dl (12.0-16.0); Imm Gran Abs Auto 0.04 X10*3/uL (0.00-0.03); Imm Gran Pct Auto 0.7 % (0.0-0.4); Lymphocytes Absolute Auto 1.3 X10*3/uL (1.2-4.9); Lymphocytes Percent Auto 22.5 % (20-40); Mean Corpuscular HGB Conc 33.6 g/dl (31.0-35.0); Mean Corpuscular Hemoglobin 33.3 pg (27.0-33.0); Mean Corpuscular Volume 98.8 fL (80.0-98.0); Mean Platelet Volume 9.2 fL (9.4-12.3); Monocytes Absolute Auto 0.7 X10*3/uL (0.1-1.2); Monocytes Percent Auto 11.9 % (2-11); Neutrophils Absolute Auto 3.4 x10*3/uL (2.0-8.3); Neutrophils Percent Auto 58.9 % (45-73); Platelet Count 196 X10*3/uL (160-400); Red Blood Count 4.33 X10*6/uL (4.20-5.50); Red Cell Distribution Width 13.7 % (11.0-16.0); White Blood Count 5.8 X10*3/uL (4.8-10.8)
[2024-03-26 16:08] LABS: Blood Urea Nitrogen 16 mg/dL (9-16)
== END 2024-03-26 14:19 | disposition home or self-care (01) ==
LOC: HO.XRAY 14:18
PROVIDERS: PCP Internal Medicine; Visit Provider Internal Medicine
DX: M47.816 Spondylosis without myelopathy or radiculopathy, lumbar region (principal); M16.9 Osteoarthritis of hip, unspecified; M35.00 Sjogren syndrome, unspecified; K21.9 Gastro-esophageal reflux disease without esophagitis; F41.1 Generalized anxiety disorder; R09.02 Hypoxemia; E78.00 Pure hypercholesterolemia, unspecified
CPT/HCPCS: 36415; 71046; 84520; 85025; 99212

== ENCOUNTER → 2024-03-26 15:43 | Outpatient (BNV) | payer MEDICARE, SELFPAY | PROVIDERS: PCP Internal Medicine; Visit Provider Radiology Diagnostic Radiology | DX: R09.02 Hypoxemia (principal) | CPT/HCPCS: 71046 ==

== ENCOUNTER 2024-04-30 10:43 | Outpatient (REF) | payer MEDICARE, SELFPAY | END 2024-04-30 10:44 | disposition home or self-care (01) | LOC: HO.CT 10:43 | PROVIDERS: PCP Internal Medicine; Visit Provider Psychiatry & Neurology Neurology | DX: G44.209 Tension-type headache, unspecified, not intractable (principal) | CPT/HCPCS: 70450 ==

== ENCOUNTER → 2024-04-30 10:43 | Outpatient (BNV) | payer MEDICARE, SELFPAY | PROVIDERS: PCP Internal Medicine; Visit Provider Radiology Diagnostic Radiology | DX: G44.209 Tension-type headache, unspecified, not intractable (principal) | CPT/HCPCS: 70450 ==

== ENCOUNTER 2024-04-30 14:21 | Outpatient (REF) | payer MEDICARE, SELFPAY | END 2024-04-30 14:22 | disposition home or self-care (01) | LOC: HO.HMGCX 14:21 | PROVIDERS: PCP Internal Medicine; Visit Provider Urology | DX: N20.0 Calculus of kidney (principal) | CPT/HCPCS: 76775 ==

== ENCOUNTER 2024-05-08 14:45 | Outpatient (AMB) | payer MEDICARE, SELFPAY ==
--- NOTE | 2024-05-08 14:48 | MHC.OFFVIS ---
Intake Visit Reasons: 1Y Ultrasound(set) Intake Note: Patient is present for Ultrasound follow up Urology Med: Vitamin B6 Antibiotic Allergy: Sulfa, Penicillin, Cipro Blood Thinner: None Renal Ultrasound: 04/30/2024 Splunk Developer Required: No Accompanied by: Self / Same As Patient Allergies lamotrigine [From LAMICTAL] Allergy (Intermediate, Verified 05/08/24 14:50) RASH Sulfa (Sulfonamide Antibiotics) [SULFA (SULFONAMIDE ANTIBIOTICS)] Allergy (Intermediate, Verified 05/08/24 14:50) UNKNOWN, upset stomach codeine [CODEINE] Allergy (Mild, Verified 05/08/24 14:50) NAUSEA & VOMITING, nausea and vomiting penicillin V [PENICILLIN V] Allergy (Mild, Verified 05/08/24 14:50) NAUSEA & VOMITING, sick to stomach, nausea and vomiting ciprofloxacin [Cipro] Allergy (Unknown, Verified 05/08/24 14:50) sick to stomach ibuprofen [From Motrin] Adverse Reaction (Verified 05/08/24 14:50) sick to stomach, nausea and vomiting HPI Comments Details: Madison is a very pleasant female. She is a patient of Dr. Bullard. She is seen for following urologic conditions - nephrolithiasis One year follow-up Discussed imaging Continue vitamin B6 Continue fluid intake Nephrolithiasis/Urolithiasis:? Discussed current findings 12 month follow-up ? They are here for further evaluation of nephrolithiasis, ? - Minimal symptoms since her last visit. Main issue is constipation. Discussion today repeat milk of magnesia, dried fruit.. ? Urolithiasis was diagnosed unsure how long. ? The patient previously had kidney stones whose composition w unknown. ? Laboratory investigations include no recent labs - reports calcium checked with Dr Winter 06/11 and is normal. ? 24 Hour urine evaluation Baseline 07/13 ? , Low Urine volume < 2.0 liters, Low calcium < 200, Low Oxalate < 30. ? Prior treatment(s) include observation. ? Prior imaging includes October 2015 , a CT (computed tomography) scan of the abdomen/pelvis (stone protocol), showing radiodense stone(s), , on the left 1mm ? Jun 2016 , a renal ultrasound - small stones on left < 2mm ? 02/11 , a renal ultrasound, showing no evidence of stones. - 04/15 renal ultrasound, left several 2-3 mm nonobstructing stones, 5 mm angiomyolipoma left upper pole - 04/16 renal ultrasound left 2.3 mm stone, other stones no longer present. 5 mm angiomyolipoma still present - 04/17 renal ultrasound with several small stones on left, right normal - 04/18 renal ultrasound small stones left stable ? UA today shows 6.0-7.0, high specific gravity suggestive of relative dehydration. ? Current therapeutic plan will be General advice to maintain good fluid intake for urine greater than 2.0 L per day, reduce salt and reduce protein and acid loads was provided?? COUNTS INCLUDE 234 BEDS AT THE [facility] Medical History Post-nasal drip Bronchitis Numbness in feet Impacted cerumen of left ear Hoarseness Stye Hoarseness Hip pain, right Lower back pain Colon cancer screening Acute sinusitis Trigger finger of right hand Sjogren's syndrome Bile salt-induced diarrhea Osteoarthritis Irritable bowel syndrome GERD (gastroesophageal reflux disease) Essential tremor Hypercholesterolemia Calculus of left kidney Constipation Cholecystectomy planned Right knee meniscal tear Hepatitis Osteoporosis Umbilical hernia History of duodenal ulcer Liver hemangioma Surgical History Hx of tonsillectomy History of cholecystectomy Cataract History of knee surgery History of eyelid surgery H/O adenoidectomy History of appendectomy Family History Father Hypertension Prostate cancer Mother Hypertension Diabetes Dementia Maternal Aunt Gastric cancer Paternal Aunt Gastric cancer Ovarian cancer Paternal Uncle Myocardial infarction Social History Household Members: Spouse Housing: House Do you presently have visiting nurse or other home services: No Alcohol intake: never Patient Tobacco Use Status: Never used Tobacco e-Cigarette/Vaping Use: Never Used Second Hand Smoke Exposure: No service: No Current occupational status: retired Cognitive needs: No Hearing needs: No Vision needs: Yes Review of Systems Const Denies chills and Denies fever(s) Card Reports no additional complaints and Denies syncope Resp Denies cough GI Denies abdominal pain and Denies heartburn Reports as per HPI and Denies change in libido Neuro Denies syncope Psych Denies change in libido Endo Denies change in libido Physical Exam Const General: cooperative, healthy appearing, comfortable and no acute distress Orientation/consciousness: patient oriented x3 HEENT Face and sinus: Yes normal facial exam Mouth: moist mucous membranes Neck Neck: Yes normal visual inspection, Yes full ROM and Yes trachea midline Chest Chest palpation & inspection: normal inspection of the chest Resp Effort & Inspection: normal respiratory effort, able to speak in complete sentences and no respiratory distress GI Inspection: Yes normal to inspection Back/Spine/Pelvis Cervical Spine: normal cervical lordosis Thoracic/Lumbar Spine: thoracic and lumbar spine normal to inspection Skin General skin exam: no rashes or lesions noted Neuro General: patient oriented x3, gait normal, tone normal and moves all extremities Extrem General: Yes normal to inspection and Yes capillary refill normal Assessment & Plan Assessment & Plan (1) Nephrolithiasis: Comment: 04/2022 Code(s): N20.0 - Calculus of kidney Category: Medical Plan Twelve month follow-up imaging Orders: Orders US renal BI 12 Months N20.0 - Calculus of kidney Patient Instructions: Imaging studies, laboratory and physical exam results were discussed and reviewed in detail. No major barriers to patient understanding were identified. An opportunity to ask questions regarding the treatment plan was provided. All questions were answered. The patient expressed understanding and agreement with the above treatment plan. The patient is aware they should contact our office by phone for worsening of their current condition or the appearance of new urologic symptoms. Compliance is encouraged with any medications and followup testing that is ordered. It is a privilege to participate in the urologic care of your patient. If you have any questions or concerns regarding treatment for the above conditions, or other urologic issues, please do not hesitate to contact me. The office telephone contact is [phone]. This note is constructed using voice recognition software. While every effort has been made to ensure accuracy roof panel hanger errors may have been included. Yours sincerely, Dr Attila Randolph MD, [facility] - Urology Providers of Expert, Compassionate Care for the Genitourinary System Coding Level of Care Code Est Pt Level 4 (16684) Diagnoses Nephrolithiasis N20.0
== END 2024-05-08 15:08 | disposition home or self-care (01) ==
PROVIDERS: PCP Internal Medicine; Visit Provider Urology
DX: N20.0 Calculus of kidney (principal)
CPT/HCPCS: 99214

== ENCOUNTER → 2024-05-08 14:45 | Outpatient (BNVA) | payer MEDICARE, SELFPAY | PROVIDERS: PCP Internal Medicine; Visit Provider Urology | DX: N20.0 Calculus of kidney (principal) | CPT/HCPCS: 99212 ==

== ENCOUNTER 2024-06-29 13:51 | Outpatient (AMB) | payer MEDICARE, SELFPAY ==
[2024-06-29 13:54] VITALS: BP 108/68; PULSE 71; O2SAT 97; BMI 26.5
--- NOTE | 2024-06-29 13:54 | A.OFFPC_ITS ---
Vital Signs 06/29/24 13:54 Height 5 ft 1 in Weight 140 lb 8 oz BMI 26.5 BP 108/68 Blood Pressure Location Lt brachial Position Sitting Pulse 71 Pulse Source Pulse Oximeter Pulse Oximetry (%) 97 Oxygen Delivery Method Room Air Intake Visit Reasons: hypercholesterol Allergies lamotrigine [From LAMICTAL] Allergy (Intermediate, Verified 06/29/24 14:03) RASH Sulfa (Sulfonamide Antibiotics) [SULFA (SULFONAMIDE ANTIBIOTICS)] Allergy (Intermediate, Verified 06/29/24 14:03) UNKNOWN, upset stomach codeine [CODEINE] Allergy (Mild, Verified 06/29/24 14:03) NAUSEA & VOMITING, nausea and vomiting penicillin V [PENICILLIN V] Allergy (Mild, Verified 06/29/24 14:03) NAUSEA & VOMITING, sick to stomach, nausea and vomiting ciprofloxacin [Cipro] Allergy (Unknown, Verified 06/29/24 14:03) sick to stomach ibuprofen [From Motrin] Adverse Reaction (Verified 06/29/24 14:03) sick to stomach, nausea and vomiting Tobacco use date assessed: 06/29/24 Fall risk assessment: No Falls in past year Last assessed Fall Risk: 06/29/24 Dental Screening Dental Screen Date: 06/29/24 Did you have a dental visit in the last 12 months?: Yes Did you have a dental problem in the last 6 months where you did not have access to dental care?: No Was dental information given to patient?: Patient has dentist HPI hypercholesterol HPI Details [age] year old female with a history of Sjogren's hypercholesterolemia GERD nephrolithiasis osteoporosis generalized anxiety disorder impaired glucose tolerance lumbar spondylosis coming in for follow-up. Last seen in 03/26/2024. Patient's last colonoscopy was done in 2014 mammogram is up-to-date 07/16/2023 do this time and up-to-date with bone density 06/15/2023. Patient also follows up with urology seen June 21 nephrolithiasis on B6 as well as increasing fluid intake advised to get an ultrasound follow-up. Patient has seen Neurology and has ordered for CT scan of the head due to headaches revealing no major or no acute intracranial process patient's last blood work was done in March 26 with no anemia platelet count is normal [facility] Medical History Post-nasal drip Bronchitis Numbness in feet Impacted cerumen of left ear Hoarseness Stye Hoarseness Hip pain, right Lower back pain Colon cancer screening Acute sinusitis Trigger finger of right hand Sjogren's syndrome Bile salt-induced diarrhea Osteoarthritis Irritable bowel syndrome GERD (gastroesophageal reflux disease) Essential tremor Hypercholesterolemia Calculus of left kidney Constipation Cholecystectomy planned Right knee meniscal tear Hepatitis Osteoporosis Umbilical hernia History of duodenal ulcer Liver hemangioma Surgical History Hx of tonsillectomy History of cholecystectomy Cataract History of knee surgery History of eyelid surgery H/O adenoidectomy History of appendectomy Family History Father Hypertension Prostate cancer Mother Hypertension Diabetes Dementia Maternal Aunt Gastric cancer Paternal Aunt Gastric cancer Ovarian cancer Paternal Uncle Myocardial infarction Social History Household Members: Spouse Housing: House Do you presently have visiting nurse or other home services: No Alcohol intake: never Patient Tobacco Use Status: Never used Tobacco e-Cigarette/Vaping Use: Never Used Second Hand Smoke Exposure: No service: No Current occupational status: retired Cognitive needs: No Hearing needs: No Vision needs: Yes Questionnaire PHQ-9 Over the last 2 weeks, how often have you been bothered by any of the following problems? 1. Little interest or pleasure in doing things: several days 2. Feeling down, depressed, or hopeless: several days 3. Trouble falling or staying asleep, or sleeping too much: not at all 4. Feeling tired or having little energy: not at all 5. Poor appetite or overeating: not at all 6. Feeling bad about yourself - or that you are a failure or have let yourself or your family down: not at all 7. Trouble concentrating on things, such as reading the newspaper or watching television: not at all 8. Moving or speaking so slowly that other people could have noticed. Or the opposite - being so fidgety or restless that you have been moving around a lot more than usual: not at all 9. Thoughts that you would be better off or of hurting yourself in some way: not at all Total score: 2 Source: Developed by Drs. Benny Gina Christianson Kurt Kroenke and colleagues, with an educational garcia from [email or web address]. Thrive Questionnaire Date Thrive assessed: 08/02/23 Are you currently unemployed and looking for a job?: No BENITA-7 AMB Questionnaire BENITA-7 Date BENITA - 7 assessed: 08/02/23 Source: Developed by Drs. Benny Marcano, Gina Gonzalez, Obi Guajardo and colleagues, with an educational garcia from [email or web address]. Physical exam (Primary Care) Vital Signs: Last Vital Signs Pulse 71 06/29/24 13:54 BP 108/68 06/29/24 13:54 Pulse Ox 97 06/29/24 13:54 Oxygen Delivery Method Room Air 06/29/24 13:54 BMI result Body Mass Index 26.5 Tobacco/Smoking Status: Tobacco use Status Tobacco use date assessed 06/29/24 06/29/24 14:06 Patient Tobacco Use Status Never used Tobacco 06/29/24 13:54 e-Cigarette/Vaping Use Never Used 06/29/24 13:54 PHQ-9: PHQ-9 Score PHQ-9: Total score 2 06/29/24 14:16 Thrive Assessment: Date of Thrive Assessment Date Thrive assessed 08/02/23 06/29/24 13:54 Const General: alert; No acute distress Eyes Conjunctivae: conjunctivae normal Resp Auscultation: clear to auscultation bilaterally Cardio Rate: regular rate Rhythm: regular rhythm GI Inspection: Yes normal to inspection Extrem General: Yes normal to inspection and No edema Coding Level of Care Code Est Pt Level 4 (40975) Complex EM visit Add On G2211 Diagnoses Osteoporosis M81.0 Hypercholesterolemia E78.00 Gastroesophageal reflux disease without esophagitis K21.9 Esophagitis presence: without esophagitis Sjogren's syndrome, with unspecified organ involvement M35.00 Sjogren's organ involvement: unspecified organ involvement Nephrolithiasis N20.0 Migraine with aura and without status migrainosus, not intractable G43.109 Intractability: not intractable Migraine type: with aura Status migrainosus presence: without status migrainosus Impaired fasting blood sugar R73.01 Generalized anxiety disorder F41.1 Assessment & Plan Assessment & Plan (1) Osteoporosis: Comment: 2020 Code(s): M81.0 - Age-related osteoporosis without current pathological fracture Category: Medical Plan: Continue with calcium and vitamin-D and patient is on alendronate. Patient is up-to-date with bone density (2) Hypercholesterolemia: Code(s): E78.00 - Pure hypercholesterolemia, unspecified Category: Medical Plan: Avoid fried foods, chicken skin, eggs, butter margarine, pastries and meat. Be it pork or beef they have a lot of cholesterol on simvastatin 5 mg at bedtime LDL goal of less than 130. (3) GERD (gastroesophageal reflux disease): Code(s): K21.9 - Gastro-esophageal reflux disease without esophagitis Category: Medical Qualifiers: Esophagitis presence: without esophagitis Qualified Code(s): K21.9 - Gastro-esophageal reflux disease without esophagitis Plan: Avoid the foods that causes that usually spicy foods, tomato products, juices, coffee, soda and foods that your sensitive to. After eating do not lie down, allow 3-4 hours before in lie down. And keep the head of bed above 30 degrees to avoid the acid from going up. (4) Sjogren's syndrome: Code(s): M35.00 - Sjogren syndrome, unspecified Category: Medical Qualifiers: Sjogren's organ involvement: unspecified organ involvement Qualified Code(s): M35.00 - Sicca syndrome, unspecified Plan: Continue to follow-up with Rheumatology (5) Nephrolithiasis: Comment: 04/2022 Code(s): N20.0 - Calculus of kidney Category: Medical Plan: Continue to keep well hydrated. (6) Migraine: Code(s): G43.909 - Migraine, unspecified, not intractable, without status migrainosus Category: Medical Qualifiers: Intractability: not intractable Migraine type: with aura Status migrainosus presence: without status migrainosus Qualified Code(s): G43.109 - Migraine with aura, not intractable, without status migrainosus Plan: Patient is advised to eat healthy, keep well hydrated, keep active and have adequate sleep. (7) Impaired fasting blood sugar: Code(s): R73.01 - Impaired fasting glucose Category: Medical Plan: Decrease the amount of carbohydrate intake, pasta, bread, rice and potatoes are all sugar and that is aside from all the sweet stuff, remember that fruits are good but they are Sweet also. (8) Generalized anxiety disorder: Comment: Dr. Cortes Q2-3 months and counselling Q 2-3 weeks Code(s): F41.1 - Generalized anxiety disorder Category: Medical Plan: Continue with counseling and therapy
--- OUTSIDE RECORDS SUMMARY | 2024-06-29 15:21 | XMS_ITS ---
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 Name Role Phone Darwin Hopper Primary Care Provider Jose Velasquez Unavailable [phone] Allergies Allergen (clinical drug ingredient) Drug/Non Drug Allergy documented on EMR Reaction Allergy Type Onset Date Status codeine Codeine upset stomach Drug Allergy Act alexander Substance with sulfonamide structure and antibacterial mechanism of action (substance) Sulfa Antibiotics rash Drug Allergy Active REASON FOR VISIT At Risk Footcare, Painful Nail(s) aggrevated by shoes and causing difficulty standing/walking., Foot pain Medications Medication SIG (Take, Route, Frequency, Duration) Notes Start Date End Date Status traZODone HCl 100 MG 1 tablet at bedtime Orally Once a day for 30 day(s) Not-Taking Fluticasone Propionate Not-Taking Omeprazole 20 MG 1 capsule 30 minutes before morning meal Orally Once a day for 30 day(s) Active Multivitamin Active Calcium Magnesium Ac tive Vitamin B6 Active Probiotic Active Lexapro 10 MG 1 tablet Orally Once a day for 30 day(s) Not-Taking Simvastatin 5 MG 1 tablet in the even ing Orally Once a day Active Latta 3 Active ALPRAZolam 0.5 MG 1 tablet Orally Twic e a day Active Asenapine Maleate 2.5 MG 2 tablets under the tongue and allow to dissolve Sublingual Twice a day for 30 day(s) Active Cequa 0.09 % 1 drop into affected eye Ophthalmic every 12 hrs Active Vitamin D Active Cymbalta Active Xanax prn Active Social History Tobacco Use: Social History Observation Description Date Details (start date - stop date) Never Smoker NA - NA Tobacco Use/Smoking Question Answer Notes Are you a: nonsmoker Alcohol Screen Question Answer Notes Did you have a drink containing alcohol in the p ast year? No Points 0 Interpretation Negative Tobacco use other than smoking: Question Answer Notes Are you an other tobacco user? No Problems Problem Type SNOMED Code ICD Code Onset Dates Problem Status W/U Status Risk Notes Problem Atherosclerosis of [place] arteries of the extremities ([id number]) Atherosclerosis of [place] artery of both lower extremities, with unspecified presence of clinical manifestation (I70.203) Active confirmed Vital Signs Height 5ft in 12/07/2023 Weight 132 lbs 12/07/2023 BMI 25.78 kg/m2 12/07/2023 Procedures Procedure Date Ordered Date Performed Result Body Sit e 42388-WLAEERR NAIL, 6 OR MORE 12/07/2023 N/A 10624-AUYB SKIN LESIONS, 2 TO 4 12/07/2023 N/A Encounters Encounter Location Date Provider Diagnosis [facility] [address] [address] 12/07/2023 Jose Baker Atherosclerosis of [place] artery of both lower extremities, with unspecified presence of clinical manifestation I70.203 ; Tinea unguium B35.1 ; Pain in right toe(s) M79.674 ; Pain in left toe(s) M79.675 ; Pain in left foot M79.672 ; Pain in left ankle and joints of left foot M25.572 ; Bursitis of left foot M77.52 and Hallux valgus (acquired), left foot M20.12 Assessments Encounter Date Diagnosis (ICD Code) Assessment Notes Treatment Notes Treatment Clinical Notes Section Notes 12/07/2023 Atherosclerosis of [place] artery of both lower extremities, with unspecified presence of clinical manifestation (ICD-10 - I70.203) 12/07/2023 Tinea unguium (ICD-10 - B35.1) 12/07/2023 Pain in right toe(s) (ICD-10 - M79.674) 12/07/2023 Pain in left toe(s) (ICD-10 - M79.675) 12/07/2023 Pain in left foot (ICD-10 - M79.672) 12/07/2023 Pain in left ankle and joints of left foot (ICD-10 - M25.572) 12/07/2023 Bursitis of left foot (ICD-10 - M77.52) 12/07/2023 Hallux valgus (acquired), left foot (ICD-10 - M20.12) Plan Of Treatment Pending Test Test Name Order Date 09911-PBRKDQA NAIL, 6 OR MORE 12/07/2023 90325-RVRD SKIN LESIONS, 2 TO 4 12/07/19 24 Next Appt Details Follow Up: prn, Reason: Provider Name:Jose Baker , 08/30/2024 03:00:00 PM, [address] [facility], [address], [place], [address], Procedure Notes * Category Sub-Category Detail Notes Debride Nail 6-10 Nail debridement Nail debridem ent performed extensively to reduce/remove overall nail length, girth, thickness, subungual debris, and necrotic tissue, by manual and electrical means through the use of a nail nipper and/or dremel, to more viable healthy nail plate or bed tissue 1-5. Silver nitrate used for any petechial bleeding as necessary. Patient chooses, no pharmaceutical tx (81937) Keratoma Treatment Parring or Cutting o f Benign Hyperkeratotic Lesion(s) 72661 ( 2-4 Lesions ) - The Benign hyperkeratotic lesions, as described above were pared, and/or cut utilizing a sterile 15 blade, tissue nippers, and/or dremel , Q8 Progress Notes * DEONJESSERoseB:1950 ( 73 yo F)Acc No.[id number]:12/07/2023 Progress Notes Patient:?Madison Navarro Provider:?Jose Baker DPM :1950???Age:73 Y???Sex:Female D ate:12/07/2023 Address:[address] [facility], [facility] Pcp:Darwin Hopper Subjective: * Chief Complaints: * ???At Risk FootcarePainful N ail(s) aggrevated by shoes and causing difficulty standing/walking.Foot pain * HPI: ???At Risk footcare:?Pt States Last PCP Visit:?Date?10/28/2023 ???Foot Pain:?Location:?Inside, Great toe joint, LEFT.?Duration:?several months.?Course:?worse.?Aggrevated:?any pressure.?Treatments:?rest/alter normal daily activity , change in shoes.? * ROS:?General/Constitutional:?Nausea?denies.?Vomiting?denies.?Hunger Thirst?denies.?Loss appetite?denies.?Chills?denies.?Fatigue?denies.?Fever?denies.?Night Sweats?denies.?Unexplained weight loss?denies.?Unexplained weight gain?denies.?HEENTM:?Dentures?denies.?Dizziness?denies.?Glasses/contacts?admits.?Retinopathy?de nies.?Blurred/double vision?denies.?TMJ?admits.?Discharge/drainage?denies.?Implants?denies.?Sore throat?denies.?Dental implants?admits.?Hard of hearing ?denies.?Difficulty chewing/swallowing/speaking?denies.?Nose bleeds?denies.?Sore mouth?denies.?Respiratory:?On Oxygen?denies.?Pneumonia/pleurisy?denies.?Bronchitis?denies.?Emphysema?denies.?C oughing?denies.?Cough blood?denies.?Shortness of breath?denies.?Wheezing?denies.?Cardiovascular:?Pacemaker?denies.?MVP?denies.?WPW?denies.?CHF?denies.?Heart attack?denies.?Septal defect?denies.?Rapid beat?denies.?Chest pain ?denies.?Atrial Fib.?denies.?Murmur/Palpitations?denies.?Gastrointestinal:?Hemorrhoids?denies.?Stomach/Abdominal pain?denies.?Dark blood stool?denies.?Irritable bowel ?admits.?Constipation?denies.?Diarrhea?denies.?Hematology:?Swelling?denies.?Clots?denies.?Varicose Veins?denies.?Bruising?denies.?Bleeding problem?denies.?Genitourinary:?Blood urine?denies.?Frequent/Painfu/urination/bladder control?denies.?Kidney stones?denies.?Infection (UTI)?denies.?Nephropathy?denies.?sex trans dis (STD)?denies.?Prostate?denies.?Musculoskeletal:?Hammertoes?denies.?Bunions?admits.?Back Pain?admits.?Muscle Cramps/ Resting?denies.?Muscle cramps / walking?denies.?Generalized aches and pains?denies.?Weakness?denies.?Integ.:?Aldana?denies.?Scars?denies.?Corns/calluses?admits.?Ingrown nails?admits.?Painful nails?admits.?Open Sores?denies.?Rashes?denies.?Neurologic:?Difficulty sleeping?denies.?Brain disorder?denies.?Numbness?denies.?Balance trouble?denies.?Confusion?denies.?Fainting/blackouts?denies.?Tingling?denies.?Tr emors?denies.? * Medical History:? * Surgical History:?tonsillect patricia and adenoidectomy 1959appendectomy 1998Gall bladder removal 2000trigger finger release knee surgery, right 2016 * Hospitalization/Major Diagno stic Procedure:?No Hospitalization History. * Family History:?Mother: dece ased, foot problems, diagnosed with Family history of arthritis, Diabetic - NIDDM.?Father: .? * Social History:?Tobacco Use:?Tobacco Use/Smoking?Are you a:?nonsmoker ?Tobacco use other than smoking?Are you an other tobacco user??No ???Drugs/Alcohol:?Drugs?Have you used drugs other than those for medical reasons in the past 12 months??No ?Alcohol Screen?Did you have a drink containing alcohol in the past year??No ?Points?0 ?Interpretation?Negative ???Miscellaneous:?no Children. ?no Home smoke detector use. ?Marital status: . ?Occupation: Retired, [employer] * Medications:?TakingXanax , N otes: prnCymbalta Asenapine Maleate 2.5 MG Tablet Sublingual 2 tablets under the tongue and allow to dissolve Sublingual Twice a dayALPRAZolam 0.5 MG Tablet 1 tablet Orally Twice a dayVitamin D Cequa 0.09 % Solution 1 drop into affected eye Ophthalmic every 12 hrsOmega 3 Simvastatin 5 MG Tablet 1 tablet in the evening Orally Once a dayProbiotic Vitamin B6 Calcium Magnesium Multivitamin Omeprazole 20 MG Capsule Delayed Release 1 capsule 30 minutes before morning meal Orally Once a dayTaking Jerardo Notes: prnTaking Cymbalta Taking Asenapine Maleate 2.5 MG Tablet Sublingual 2 tablets under the tongue and allow to dissolve Sublingual Twice a dayTaking ALPRAZolam 0.5 MG Tablet 1 tablet Orally Twice a dayTaking Vitamin D Taking Cequa 0.09 % Solution 1 drop into affected eye Ophthalmic every 12 hrsTaking Latta 3 Taking Simvastatin 5 MG Tablet 1 tablet in the evening Orally Once a dayTaking Probiotic Taking Vitamin B6 Taking Calcium Magnesium Taking Multivitamin Taking Omeprazole 20 MG Capsule Delayed Release 1 capsule 30 minutes before morning meal Orally Once a dayNot-Taking/PRNLexapro 10 MG Tablet 1 tablet Orally Once a dayFluticasone Propionate traZODone HCl 100 MG Tablet 1 tablet at bedtime Orally Once a dayMedication List reviewed and reconciled with the patientNot-Taking/PRN Lexapro 10 MG Tablet 1 tablet Orally Once a dayNot- Taking/PRN Fluticasone Propionate Not-Taking/PRN traZODone HCl 100 MG Tablet 1 tablet at bedtime Orally Once a dayMedication List reviewed and reconciled with the patient * Allergies:?Sulfa Antibiotics : rashCodeine: upset stomachyes[Allergies Verified] Objective: * Vitals:?Ht: 5ft, Wt:132, BMI :25.78, Shoe size: 6-6.5, Ht-cm: 152.4 cm, Wt-k.87 kg. * Examination: ???Vascular: ?DP PULSES:? 0/4, B/L.?PT PULSES:?1/4, B/L.?CAPILLARY FILL TIME:? delayed, all digits, B/L.?SKIN TEMPERTURE GRADIENT OF THE LOWER EXTERMITIES:? decreased, cool to cool, proximal to distal, B/L.?HAIR GROWTH/TEXTURE/ELASTICITY/TURGOR:? decreased, B/L.?PIGMENTATION:?mottled, B/L.?EDEMA:?absent, B/L.?CLAUDICATION:?denies, B/L.?REST PAIN:?denies, B/L.?Nails: ?NAILS are:? Elongated, overgrown, dystrophic, lytic, greater than 3mm thick, discolored and friable with crumbly malodorous subungual debris, with pain on palpation, T1, T4, 1-5 Right foot.?Dermatologic: ?SKIN FINDINGS:?Skin exam reveals Keratotic lesion(s) located at , SUB MTH (s) , 1 , B/L.?Orthopedic: ?MUSCLE STRENGTH:?5/5 all groups in a symmetrical fashion, B/L.?BUNION:? Medially prominent 1st MPJ,(+) Pain on palpation,inflammation present medially,Lateral tracking 1st MPJ incompletely reducible, LEFT.?Neurological: ?SENSORY:?Neurological exam reveals intact sensorium, pain sensation normal, vibration sensation intact, pinprick sensation is normal in the lower extremities, Pt denies, anesthesia, burning, paresthesia, tingling, B/L.?TINEL'S COMPRESSION:? Negative, Saphenous nerve distribution.?General Examination: ?GENERAL APPEARANCE:?Reveals a pleasant, alert, well nourished, well- developed, well hydrated individual, who demonstrates proper attention to hygiene/body habitus, and is in no acute distress, Pt serves as own historian for office visit today.?ORIENTED:?person, place, and time.? Assessment: * Assessment: 1.?Atherosclerosis of [place] artery of both lower extremities, with unspecified presence of clinical manifestation - I70.203?2.?Tinea unguium - B35.1?3.?Pain in right toe(s) - M79.674?4.?Pain in left toe(s) - M79.675?5.?Pain in left foot - M79.672 (Primary)?6.?Pain in left ankle and joints of left foot - M25.572?7.?Bursitis of left foot - M77.52?8.?Hallux valgus (acquired), left foot - M20.12, Acute problem, Uncomplicated (3)? Plan: * Treatment: 2.?Tinea unguium?Procedure: 70259-TPJNHHO NAIL, 6 OR MORE * Procedures:?Debride Nail 6-10:?Nail debridement?Nail debridement performed extensively to reduce/remove overall nail length, girth, thickness, subungual debris, and necrotic tissue, by manual and electrical means through the use of a nail nipper and/or dremel, to more viable healthy nail plate or bed tissue 1-5. Silver nitrate used for any petechial bleeding as necessary. Patient chooses, no pharmaceutical tx (04935).?Keratoma Treatment:?Parring or Cutting of Benign Hyperkeratotic Lesion(s)?18179 ( 2-4 Lesions ) - The Benign hyperkeratotic lesions, as described above were pared, and/or cut utilizing a sterile 15 blade, tissue nippers, and/or dremel , Q8.? * Procedure Codes:?93106 DEBRI DE NAIL, 6 OR MORE, Modifiers: XS 05496 TRIM SKIN LESIONS, 2 TO 4, Modifiers: XS , Q8 * Preventive Medicine:? ??Counseling:?Discussion:?-03: Office or other outpatient visit for the evaluation and management of a new patient, which required a medically appropriate history and/or examination and LOW level of DECISION MAKING for: 1 STABLE ACUTE UNCOMPLICATED PROBLEM, 2 OR MORE MINOR PROBLEMS, OR 1 STABLE CHRONIC PROBLEM, THAT POSE(S) A LOW RISK FOR MORBIDITY/MORTALITY. The visit on the day of the encounter encompassed interpreting the data and educating the patient as to the nature of their condition, treatment options available according to their individual PMH, meds, allergies, and overall health/living conditions, as well as any potential risks or complications that may occur from a failure to adhere to, and participate in, the recommended course of therapy. The discussion included a complete verbal, and/or written explanation of the examination results, any x-rays taken, the proposed diagnosis, and outline of the treatment plan. A schedule for future care needs was also explained. The patient verbalized an understanding of the instructions at this time and agreed to be an active participant in their treatment. If the patient should think of any questions or concerns after the visit, I have encouraged the patient to call the office.?Digital Treatment:?I explained to the patient the risks/benefits of all the different treatment options for their pain including: No treatment at all, Rest, Ice, New/supportive/wider/deeper Shoegear, Digital Padding/Strapping/Taping/Bracing/Gel protective sleeves, Foot/Ankle AFO Bracing, Stretching exercises, Deep Tissue Massage, Arch support/shoe inserts with splay metatarsal padding, and Custom orthoses. I insisted that any digital devices be removed daily and not worn overnight for safety. The patient is to carefully examine the toes daily for any skin irritation while using any splinting or padding device. The advantages and disadvantages of each option were discussed and the patients questions re: shoegear, padding, custom vs prefabricated inserts, activity level, and consistency in home treatment regimens for optimal success were answered to their verbally confirmed satisfaction.?Discussion for Bunion sx:?We elected to try conservative treatment at the present time, due to the patients age, medical history, and circulatory constraints.?Orthotics:?I explained to the patient the benefits of OT use. I explained that orthoses are medically necessary to decrease the foot pain through proper mechanical control, support of their foot, cushion the forefoot by supplementing the soft tissue, possibly delay of the progression of the bunion deformity, possibly prevent surgery.?P.R.I.C.E.:?The patient was counseled on the use of P.R.I.C.E. and NSAIDS (if well tolerated) to aid in the recovery from their painful condition , Recommended Topical analgesics including Biofreeze/Aspercream/Voltaren gel.?Shoe Gear Counseling:?The patient and I reviewed the types of shoes they should be wearing. My recommendation included obtaining a well-fitted shoe with a good supportive, non-foldable nor twistable sole, plenty of toe/room for the forefoot, and proper arch support. Based on todays examination, I recommended the patient look for new shoes, by having their feet professionally measured. We discussed that generally the best time of the day for a shoe fitting is the afternoon. Different shoes types and brands to best match the patients occupation and vocation were discussed. Specific brand selection will be up to the patient, their individual foot condition/deformities, and fit. The patient and I reviewed the standard new shoe break in period by wearing them for a few hours a day while checking for redness or sores as wear time is increased. The patient verbally confirmed to understanding the information discussed.? * Follow Up:?prn * Images: * Sign off status: Completed Addendum: * ? true * Provider:?Jose Baker DPM Date:?2023 Generated for Miranda mariee/Tony/Rodrigo on:?06/29/2024 03:20 PM EST History and Physical Notes * HPI (History of Present Illness) Category Sub-Category Detail Notes Category Not es At Risk footcare Pt States Last PCP Visit: Date: Foot Pain Location: Inside, Great to e joint, LEFT Duration: several months Course: worse Aggravated: any pressure Treatments: rest/alter normal da moisés activity , change in shoes Examination Category Sub-Category Detail Notes Category Not es Neurological SENSORY: Neurological exa m reveals intact sensorium, pain sensation normal, vibration sensation intact, pinprick sensation is normal in the lower extremities, Pt denies, anesthesia, burning, paresthesia, tingling, B/L TINEL'S COMPRESSION: Negative, Saphenous nerve distribution Dermatologic SKIN FINDINGS: Skin exam reveal s Keratotic lesion(s) located at , SUB MTH (s) , 1 , B/L Orthopedic BUNION: Medially promine nt 1st MPJ, (+) Pain on palpation, inflammation present medially, Lateral tracking 1st MPJ incompletely reducible, LEFT MUSCLE STRENGTH: 5/5 all groups in a symmetrical fashion, B/L General Examination GENERAL APPEARANCE: Reveals a pleasant, alert, well nourished, well-developed, well hydrated individual, who demonstrates proper attention to hygiene/body habitus, and is in no acute distress, Pt serves as own historian for office visit today ORIENTED: person, place, and t fahad Vascular DP PULSES (B): 0/4, B/L PT PULSES (B): 1/4, B/L CAPILLARY FILL TIME: delayed, all digits , B/L TEMPERTURE GRADIENT (C): decreased, cool to cool, proximal to distal, B/L TROPHIC CONDITION-TEXTURE/ELASTICITY/TURGOR/HAIR GROWTH (B): decreased, B/L EDEMA (C): absent, B/L CLAUDICATION (C): denies, B/L REST PAIN: denies, B/L PIGMENTATION: mottled, B/L Nails NAILS are: Elongated, overg rown, dystrophic, lytic, greater than 3mm thick, discolored and friable with crumbly malodorous subungual debris, with pain on palpation, T1, T4, 1-5 Right foot
--- OUTSIDE RECORDS SUMMARY | 2024-06-29 15:21 | XMS_ITS ---
Author Organization [facility] Address [address] [place] [address] Care Team Providers Care Preschool Assistant Teacher Name Role Phone Po Darwin GONZALES Primary Care Provider Edna Vazquez Jr, Zoltan Haines [phone] REASON FOR VISIT pain MEDICATIONS Medication SIG (Take, Route, Fr equency, Duration) Notes Start Date End Date Status Dicyclomine HCl 10 MG 1 tablet Orally 2- 4 times a day 03/04/2023 Active Encounters Encounter Location Date Provider Diagnosis [facility] [address] [place] [address] 03/04/2023 Zoltan Vazquez Jr PLAN OF TREATMENT Medication Medication Name Sig Start Date Stop Date Notes Dicyclomine HCl 10 MG 1 tablet Orally 2-4 times a day 01/2023 Next Appt Details Provider Name:Zoltan turner Jr, 07/12/2024 02:15:00 PM, [address] [place] [address], [address], [place], [address],
--- OUTSIDE RECORDS SUMMARY | 2024-06-29 15:21 | XMS_ITS ---
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 Name Role Phone Po Darwin GONZALES Primary Care Provider Zoltan Grant Jr Unavailable ALLERGIES Allergen (clinical drug ingredient) Drug/Non Drug Allergy documented on EMR Reaction Allergy Type Onset Date Status Penicillin Unknown Drug Allergy Active Motrin Unknown Drug Allergy Active lamotrigine Lamictal Unknown Drug Allergy Activ e Codeine Phosphate Unknown Drug Allergy Active REASON FOR VISIT Patient presents today for IBS , Gerd MEDICATIONS Medication SIG (Take, Route, Frequency, Duration) Notes Start Date End Date Status Asenapine Maleate 2.[address] ONE TABLE T UNDER THE TONGUE 2 TIMES DAY Sublingual for 30 Active Fluticasone Propionate 50 MCG/ACT 1 spray in each nostril Nasally Twice a day Active Vitamin B-6 50 MG 1 tablet Orally Once a day Active Probiotic - 1 capsule Orally onc e a day Active Simvastatin 5 MG 1 tablet in the even ing Orally Once a day Active Omeprazole 20 MG Orally Act alexander Multi Vitamin/Minerals - 1 Orally QD Active Clinton 3 1000 MG 1 AND half capsule O rally Once a day Active Cequa 0.09 % 1 drop into affected eye Ophthalmic every 12 hrs Active Calcium Magnesium Ac tive Lexapro 10 MG 1 tablet Orally Once a day for 30 day(s) Active Vitamin K Active ALPRAZolam 0.5 MG 1 tablet Orally once a day Active Diflucan 03/30/2021 Active Vitamin D 50 MCG (2000 UT) 1 capsule Ora lly Once a day for 30 day(s) Active VITAL SIGNS BMI 25.32 kg/m2 06/30/2023 Blood pressure systolic 00 mm Hg 06/30/19 24 Blood pressure diastolic 00 mm Hg 024 Height 61 in 06/30/2023 Temperature 97.2 degrees Fahrenheit 06/30/19 24 Weight 134 lbs 06/30/2023 Encounters Encounter Location Date Provider Diagnosis [facility] [address] [place] [address] 06/30/2023 Zoltan Vazquez Jr Gastroesophageal reflux disease without esophagitis K21.9 ; Irritable bowel syndrome with constipation K58.1 and LLQ pain R10.32 ASSESSMENTS Encounter Date Diagnosis Assessment Notes Treatment Notes Treatment Clinical Notes 06/30/2023 Gastroesophageal reflux disease without esophagitis (ICD-10 - K21.9) Gastroesophageal reflux disease material was printed 06/30/2023 Irritable bowel syndrome with constipation (ICD-10 - K58.1) 06/30/2023 LLQ pain (ICD-10 - R10.32) PLAN OF TREATMENT Treatment Notes Assessment Notes Gastroesophageal reflux dise ase without esophagitis Gastroesophageal reflux disease material was printed Next Appt Details Follow Up: 1 Year, Reason: Provider Name:Zoltan turner Jr, 07/12/2024 02:15:00 PM, [address], [address], [place], [address],
--- OUTSIDE RECORDS SUMMARY | 2024-06-29 15:21 | XMS_ITS | Patient Health Record ---
Author Organization [facility] Address [address] [place] [address] Care Team Providers Care Corporate Secretary Name Role Phone Po Darwin GONZALES Primary Care Provider Zoltan Grant Jr Unavailable [phone] ALLERGIES Allergen (clinical drug ingredient) Drug/Non Drug Allergy documented on EMR Reaction Allergy Type Onset Date Status Penicillin Unknown Drug Allergy Active Motrin Unknown Drug Allergy Active lamotrigine Lamictal Unknown Drug Allergy Activ e Codeine Phosphate Unknown Drug Allergy Active REASON FOR REFERRAL No Information MEDICATIONS Medication SIG (Take, Route, Frequency, Duration) Notes Start Date End Date Status Multi Vitamin/Minerals - 1 Orally QD Active Loveland 3 1000 MG 1 AND half capsule O rally Once a day Active Asenapine Maleate 2.[address] ONE TABLE T UNDER THE TONGUE 2 TIMES DAY Sublingual for 30 Active Vitamin K Active Probiotic - 1 capsule Orally onc e a day Active ALPRAZolam 0.5 MG 1 tablet Orally once a day Active Diflucan 03/30/2021 Active Simvastatin 5 MG 1 tablet in the even ing Orally Once a day Active Vitamin D 50 MCG (1999 UT) 1 capsule Ora lly Once a day for 30 day(s) Active Omeprazole 20 MG Orally Act alexander Cequa 0.09 % 1 drop into affected eye Ophthalmic every 12 hrs Active Fluticasone Propionate 50 MCG/ACT 1 spray in each nostril Nasally Twice a day Active Vitamin B-6 50 MG 1 tablet Orally Once a day Active Calcium Magnesium Ac tive Lexapro 10 MG 1 tablet Orally Once a day for 30 day(s) Active IMMUNIZATIONS Vaccine Route Administration Date Status Comme nts Influenza Unknown 02/25/2017 Administered Influenza Unknown 01/25/2019 Administered Influenza Unknown 02/26/2020 Administered Influenza Unknown 03/26/2021 Administered Influenza Unknown 02/25/2022 Administered SOCIAL HISTORY Sex Assigned At : Social History Observation Description Sex Assigned At Unknown PROBLEMS Problem Type ICD Code Onset Dates Problem Status W/U Status Risk SNOMED Code Notes Problem Left lower quadrant pain (R10.32) Active confirmed 117967974 Problem Functional diarrhea (K59.1) Active confirmed 54101678 Problem Dorsalgia, unspecified (M54.9) Active confirmed 993820124 Problem Elevated LFTs (R79.89) Active confirmed 927544885 Problem Gastroesophageal reflux disease without esophagitis (K21.9) Active confirmed 927919729 Problem Dysphagia, unspecified type (R13.10) Active confirmed 06416235 Problem Abdominal pain, LLQ (R10.32) Active confirmed 663809380 Problem Irritable bowel syndrome with constipation (K58.1) Active confirmed 113877543 Problem FH: colon polyps (Z83.71) Active confirmed 350760524 Problem LLQ pain (R10.32) Active confirmed 3017 11086 VITAL SIGNS Temperature 97.2 degrees Fahrenheit 06/30/2023 Blood pressure diastolic 00 mm Hg 06/30/2023 Height 61 in 06/30/2023 Blood pressure systolic 00 mm Hg 06/30/2023 Weight 134 lbs 06/30/2023 BMI 25.32 kg/m2 06/30/2023 Encounters Encounter Location Date Provider Diagnosis [facility] [address] [facility] [address] [place] [id number] 06/30/2023 Zoltan Vazquez Jr Gastroesophageal reflux disease [...] pain (ICD-10 - R10.32) PLAN OF TREATMENT Pending Test Test Name Order Date LIVER PROFILE 07/01/2022 XR GI SERIES 09/22/2017 Future Test Test Name Order Date COLONOSCOPY 12/10/2013 UPPER GI ENDOSCOPY 09/22/2017 COLONOSCOPY 05/08/2020 Next Appt Details Provider Name:Zoltan Wilhelm Federico turner Jr, 07/12/2024 02:15:00 PM, [address] [place] [address], [address], [place], [address], Insurance Providers Payer Name Payer Address Payer Phone Subscriber Number Group Number Insured Name Patient Relationship to Insured Coverage Start Date Coverage End Date MEDICARE OF [place] [address] [place] [id number] KIKE TRAN Self - patient is the insured MED[employer] ATTN CLAIMS [address] [place] [address] [phone] [id number] KIKE TRAN Self - patient is the insured MEDICAL (GENERAL) HISTORY Medical History History ICD Code insomnia depression/anxiety 2015 benign left cyst breast urinary incontinence-mild Back pain colonoscopy 09/03/20, normal, five-year followup due to family history of colon polyps. sjogren syndrome Nephrolithiasis hyperlipidemia GERD migraines osteoporosis Gastroesophageal reflux disease, EGD 11/02, no Castro's or H. pylori Surgical History Surgery Date(Month/Year) cholecystectomy appendectomy tonsillectomy adnoidectomy eye surgery finger surgery Right meniscus surgery 06/2018 Cataract repairs /04/2019L knee surgery aug 13, 2022
--- OUTSIDE RECORDS SUMMARY | 2024-06-29 15:21 | XMS_ITS ---
Author Organization [facility] Address [address] [place] [address] Care Team Providers Care Food Porter Name Role Phone Darwin Hopper Primary Care Provider Jose Velasquez Unavailable [phone] Allergies Allergen (clinical drug ingredient) Drug/Non Drug Allergy documented on EMR Reaction Allergy Type Onset Date Status codeine Codeine upset stomach Drug Allergy Act alexander Substance with sulfonamide structure and antibacterial mechanism of action (substance) Sulfa Antibiotics rash Drug Allergy Active REASON FOR VISIT At Risk Footcare, Painful Nail(s) aggravated by shoes and causing difficulty standing/walking., Ingrown Nail, Skin problem(s) Medications Medication SIG (Take, Route, Frequency, Duration) Notes Start Date End Date Status Fluticasone Propionate Not-Taking traZODone HCl 100 MG 1 tablet at bedtime Orally Once a day for 30 day(s) Not-Taking Asenapine Maleate 2.5 MG 2 tablets under the tongue and allow to dissolve Sublingual Twice a day for 30 day(s) Not-Taking Lexapro 10 MG 1 tablet Orally Once a day for 30 day(s) Not-Taking Omeprazole 20 MG 1 capsule 30 minutes before morning meal Orally Once a day for 30 day(s) Active Multivitamin Active Vitamin B6 Active Calcium Magnesium Ac tive Simvastatin 5 MG 1 tablet in the even ing Orally Once a day Active Probiotic Active Denison 3 Active Vitamin D Active Cequa 0.09 % 1 drop into affected eye Ophthalmic every 12 hrs Active Cymbalta Active ALPRAZolam 0.5 MG 1 tablet Orally Twic e a day Active Ammonium Lactate 12 % 1 application Externally to feet except for between the toes Twice a day for 30 days Active SEROquel 25 MG 1 tablet at bedtime Orally Once a day Active Xanax prn Active Social History Tobacco [...] Are you an other tobacco user? No Vital Signs Height 5ft in 03/08/2024 Weight 132 lbs 03/08/2024 BMI 25.78 kg/m2 03/08/2024 Procedures Procedure Date Ordered Date Performed Result Body Sit e 71137-NDQLEYS NAIL, 6 OR MORE 03/08/2024 N/A 08423-Bsjewbyr Plate 03/08/2024 N/A 92395-UWXN SKIN LESIONS, 2 TO 4 03/08/2024 N/A Encounters Encounter Location Date Provider Diagnosis [facility] [address] [address] 03/08/2024 Jose Baker Atherosclerosis of muscogee artery of both lower extremities, with unspecified presence of clinical manifestation I70.203 ; Tinea unguium B35.1 ; Pain in right toe(s) M79.674 ; Pain in left toe(s) M79.675 ; Ingrown nail L60.0 and Xerosis of skin L85.3 Assessments Encounter Date Diagnosis (ICD Code) Assessment Notes Treatment Notes Treatment Clinical Notes Section Notes 03/08/2024 Atherosclerosis of muscogee artery of both lower extremities, with unspecified presence of clinical manifestation (ICD-10 - I70.203) 03/08/2024 Tinea unguium (ICD-10 - B35.1) 03/08/2024 Pain in right toe(s) (ICD-10 - M79.674) 03/08/2024 Pain in left toe(s) (ICD-10 - M79.675) 03/08/2024 Ingrown nail (ICD-10 - L60.0) 03/08/2024 Xerosis of skin (ICD-10 - L85.3) Plan Of Treatment Medication Medication Name Sig Start Date Stop Date Notes Ammonium Lactate 12 % 1 application Exte rnally to feet except for between the toes Twice a day for 30 days Pending Test Test Name Order Date 55636-TSECSNH NAIL, 6 OR MORE 03/08/2024 79329-Yfffhleg Plate 03/08/2024 46206-REBJ SKIN LESIONS, 2 TO 4 03/08/20 24 Next Appt Details Follow Up: prn, Reason: Provider Name:Jose Baker , 08/30/2024 03:00:00 PM, [address], [address], [place], [address], Procedure Notes * Category Sub-Category Detail Notes Nail Avulsion Procedure A fine sterile e levator was placed between the eponychium, nail fold, and nail plate to separate the structures. A sterile nail splitter, and/or sterile 316 blade, was then used to longitudinally section the nail along its entire length through the eponychium to the area under the nail fold. The offending portion of nail was from the nail bed with a rolling action and then removed with a hemostat. No underlying bone was identified. There was minimal bleeding as hemostasis was achieved through the temporary use of either a digital tourniquet or the aforementioned local with epinephrine. A bacitracin sterile dressing was applied. Local wound aftercare instructions were discussed and dispensed. The patient was informed of both conservative and future surgical procedures to prevent recurrence. Tylenol or Motrin was recommended for pain or discomfort (18213), CIRCULATION: Pt was advised as to the risk of delayed or nonhealing due to circulation. Pt is to call the office with any questions, concerns, or complications Anesthesia 2cc of 1 percent Lid ocaine Plain local anesthesic utilizing aseptic technique Location Lateral nail border, T5 Debride Nail 6-10 Nail debridement Performance o f this nail treatment by a nonprofessional would put this patients foot and overall health at risk. Therefore, nail debridement was performed extensively to reduce/remove overall nail length, girth, thickness, subungual debris, and necrotic tissue, by manual and/or electrical means through the use of a nail nipper and/or dremel-type head grinder, to a more viable healthy nail plate or bed tissue 6-10. Silver nitrate used for any petechial bleeding as necessary. Definitive antifungal treatment options have been reviewed and discussed with the patient. The patient chooses, no pharmaceutical tx - 52965 Keratoma Treatment Parring or Cutting o f Benign Hyperkeratotic Lesion(s) (-56) 2-4 Lesions - The Benign hyperkeratotic lesions, as described above were pared, and/or cut utilizing a sterile 15 blade, tissue nippers, and/or dremel - 61515, Q8 Progress Notes * Rose NAVARROB:1950 ( 73 yo F)Acc No.[id number]:03/08/2024 Progress Note Patient:?Madison Navarro Provider:?Jose Baker DPM :1950???Age:73 Y???Sex:Female D ate:03/08/2024 [address]:[address] [place] [address] Pcp:Darwin Hopper Subjective: * Chief Complaints: * ???At Risk FootcarePainful N ail(s) aggravated by shoes and causing difficulty standing/walking.Ingrown NailSkin problem(s) * HPI: ???At Risk footcare:?Pt States Last PCP Visit:?Date?02/14/2024 ???Skin problems:?Nature:?dryness , scaling.?Location:?B/L .?Duration:?several days.?Course:?worse.? * ROS:?General/Constitutional:?Nausea?denies.?Vomiting?denies.?Hunger Thirst?denies.?Loss appetite?denies.?Chills?denies.?Fatigue?denies.?Fever?denies.?Night Sweats?denies.?Unexplained weight loss?denies.?Unexplained [...] detector use. ?Marital status: . ?Occupation: Retired, [employer] * Medications:?TakingSEROquel 25 MG Tablet 1 tablet at bedtime Orally Once a dayXanax , Notes: prnCymbalta ALPRAZolam 0.5 MG Tablet 1 tablet Orally Twice a dayVitamin D Cequa 0.09 % Solution 1 drop into affected eye Ophthalmic every 12 hrsOmega 3 Simvastatin 5 MG Tablet 1 tablet in the evening Orally Once a dayProbiotic Vitamin B6 Calcium Magnesium Multivitamin Omeprazole 20 MG Capsule Delayed Release 1 capsule 30 minutes before morning meal Orally Once a dayTaking SEROquel 25 MG Tablet 1 tablet at bedtime Orally Once a dayTaking Xanax , Notes: prnTaking Cymbalta Taking ALPRAZolam 0.5 MG Tablet 1 tablet Orally Twice a dayTaking Vitamin D Taking Cequa 0.09 % Solution 1 drop into affected eye Ophthalmic every 12 hrsTaking Denison 3 Taking Simvastatin 5 MG Tablet 1 tablet in the evening Orally Once a dayTaking Probiotic Taking Vitamin B6 Taking Calcium Magnesium Taking Multivitamin Taking Omeprazole 20 MG Capsule Delayed Release 1 capsule 30 minutes before morning meal Orally Once a dayNot-Taking/PRNAsenapine Maleate 2.5 MG Tablet Sublingual 2 tablets under the tongue and allow to dissolve Sublingual Twice a dayLexapro 10 MG Tablet 1 tablet Orally Once a dayFluticasone Propionate traZODone HCl 100 MG Tablet 1 tablet at bedtime Orally Once a dayMedication List reviewed and reconciled with the patientNot-Taking/PRN Asenapine Maleate 2.5 MG Tablet Sublingual 2 tablets under the tongue and allow to dissolve Sublingual Twice a dayNot-Taking/PRN Lexapro 10 MG Tablet 1 tablet Orally Once a dayNot-Taking/PRN Fluticasone Propionate Not- Taking/PRN traZODone HCl 100 MG Tablet 1 tablet [...] decreased, cool to cool, proximal to distal, B/L.?TROPHIC CONDITION FOR TEXTURE/ELASTICITY/TURGOR/HAIR GROWTH:? decreased, B/L.?PIGMENTATION:?mottled, B/L.?EDEMA:?absent, B/L.?CLAUDICATION:?denies, B/L.?REST PAIN:?denies, B/L.?Nails: ?NAILS are:?Elongated, overgrown, dystrophic, lytic, greater than 3mm thick, discolored and friable with crumbly malodorous subungual debris, with pain on palpation, T1, T4, 1-5 Right foot.?Ingrown Nail: ?INSPECTION:?Reveals nail incurvation, pain on palpation, groove hypertrophy, Lateral nail border, T5.?Dermatologic: ?SKIN FINDINGS:?Skin exam reveals Keratotic lesion(s) located at , SUB MTH (s) , 1 , B/L , Skin shows sign(s) of, dryness, scaling, in a stocking fashion, no fissure(s) present, B/L.? Assessment: * Assessment: 1.?Tinea unguium - B35.1?2.? Atherosclerosis of muscogee artery of both lower extremities, with unspecified presence of clinical manifestation - I70.203?3.?Pain in right toe(s) - M79.674?4.?Pain in left toe(s) - M79.675?5.?Ingrown nail - L60.0, Lateral nail border, T5?6.?Xerosis of skin - L85.3, Acute problem, Uncomplicated (3),Rx Management (4)? Plan: * Treatment: 2.?Atherosclerosis of muscogee artery of both lower extremities, with unspecified presence of clinical manifestation?Procedure: 44953-IRQJ SKIN LESIONS, 2 TO 4 3.?Ingrown nail?Procedure: 21481-Iigrrdkx Plate 4.?Xerosis of skin? Start Ammonium Lactate Cream, 12 %, 1 application, Externally to feet except for between the toes, Twice a day, 30 days, 140, Refills 2.?? * Procedures:?Debride Nail 6-10:?Nail debridement?Performance of this nail treatment by a nonprofessional would put this patients foot and overall health at risk. Therefore, nail debridement was performed extensively to reduce/remove overall nail length, girth, thickness, subungual debris, and necrotic tissue, by manual and/or electrical means through the use of a nail nipper and/or dremel-type head grinder, to a more viable healthy nail plate or bed tissue 6-10. Silver nitrate used for any petechial bleeding as necessary. Definitive antifungal treatment options have been reviewed and discussed with the patient. The patient chooses, no pharmaceutical tx - 58610.?Keratoma Treatment:?Parring or Cutting of Benign Hyperkeratotic Lesion(s)?(-56) 2-4 Lesions - The Benign hyperkeratotic lesions, as described above were pared, and/or cut utilizing a sterile 15 blade, tissue nippers, and/or dremel - 29959, Q8.?Nail Avulsion:?Location?Lateral nail border, T5.?Anesthesia?2cc of 1 percent Lidocaine Plain local anesthesic utilizing aseptic technique.?Procedure?A fine sterile elevator was placed between the eponychium, nail fold, and nail plate to separate the structures. A sterile nail splitter, and/or sterile 316 blade, was then used to longitudinally section the nail along its entire length through the eponychium to the area under the nail fold. The offending portion of nail was from the nail bed with a rolling action and then removed with a hemostat. No underlying bone was identified. There was minimal bleeding as hemostasis was achieved through the temporary use of either a digital tourniquet or the aforementioned local with epinephrine. A bacitracin sterile dressing was applied. Local wound aftercare instructions were discussed and dispensed. The patient was informed of both conservative and future surgical procedures to prevent recurrence. Tylenol or Motrin was recommended for pain or discomfort (98938), CIRCULATION: Pt was advised as to the risk of delayed or nonhealing due to circulation. Pt is to call the office with any questions, concerns, or complications.? * Procedure Codes:?28657 DEBRI DE NAIL, 6 OR MORE, Modifiers: XS 45116 Avulsion Plate, Modifiers: XS , [id number] TRIM SKIN LESIONS, 2 TO 4, Modifiers: XS , Q8 * Preventive Medicine:? ??Counseling:?Discussion:?-13: Office or other outpatient visit for the evaluation and management of an established patient, which required a medically appropriate history [...] have encouraged the patient to call the office.?Xerosis:?The patient was counseled on the diagnosis, potential etiologies, and treatment options for their skin condition. We discussed the risks and benefits of each option from performing no treatment, to utilizing OTC topical skin creams/ointments, to utilizing prescription topical creams/ointments, to utilizing customized compounded topical medications and use of nocturnal occlusion with any/all previously detailed therapies. We discussed the advantages and disadvantages of each possible treatment and importance for adherence to all the recommended therapies for optimum success and avoid potential complications such as open sore/infection/possible hospitalization. We discussed the potential effectiveness of each topical preparation as well as each ones possible side effects and/or patient medication interactions. Patient questions re: use, dosage, successful outcomes, and application consistency were reviewed and the patient verbalized that all answers were clearly understood. The patient has decided to apply Rx skin creams to their feet save the interspaces while paying special attention to the heels. Such was sent to their pharmacy at the time of visit.? * Follow Up:?prn * Images: * Sign off status: Completed true * Provider:?Jose Baker DPM Date:?2023 Generated for Miranda mariee/Tony/Rodrigo on:?06/29/2024 03:20 PM EST History and Physical Notes * HPI (History of Present Illness) Category Sub-Category Detail Notes Category Not es Skin problems Nature: dryness , scaling Location: B/L Duration: several days Course: worse At Risk footcare Pt States Last PCP Visit: Date: 4 Examination Category Sub-Category Detail Notes Category Not es Ingrown Nail INSPECTION: Reveals nail inc urvation, pain on palpation, groove hypertrophy, Lateral nail border, T5 Dermatologic SKIN FINDINGS: Skin exam reveal s Keratotic lesion(s) located at , SUB MTH (s) , 1 , B/L , Skin shows sign(s) of, dryness, scaling, in a stocking fashion, no fissure(s) present, B/L Vascular DP PULSES (B): 0/4, B/L PT [...]
--- OUTSIDE RECORDS SUMMARY | 2024-06-29 15:21 | XMS_ITS | Patient Health Record ---
Author Organization [facility] Address [address] [facility] [place] [address] Care Team Providers Care Senior Naval Parachutist Name Role Phone Darwin Hopper Primary Care Provider Unavailagustin e Jose Baker Unavailable [phone] Allergies Allergen (clinical drug ingredient) Drug/Non Drug Allergy documented on EMR Reaction Allergy Type Onset Date Status codeine Codeine upset stomach Drug Allergy Act alexander Substance with sulfonamide structure and antibacterial mechanism of action (substance) Sulfa Antibiotics rash Drug Allergy Active Reason For Referral No Information Medications Medication SIG (Take, Route, Frequency, Duration) Notes Start Date End Date Status ALPRAZolam 0.5 MG 1 tablet Orally Twic e a day Active Asenapine Maleate 2.5 MG 2 tablets under the tongue and allow to dissolve Sublingual Twice a day for 30 day(s) Not-Taking Ammonium Lactate 12 % 1 application Externally to feet except for between the toes Twice a day for 30 days Active Simvastatin 5 MG 1 tablet in the even ing Orally Once a day Active [place] 3 Active traZODone HCl 100 MG 1 tablet at bedtime Orally Once a day for 30 day(s) Not-Taking Cequa 0.09 % 1 drop into affected eye Ophthalmic every 12 hrs Active Fluticasone Propionate Not-Taking Vitamin D Active Lexapro 10 MG 1 tablet Orally Once a day for 30 day(s) Not-Taking SEROquel 25 MG 1 tablet at bedtime Orally Once a day Active Multivitamin Active Metoprolol Succinate Active Calcium Magnesium Ac tive Vitamin B6 Active Probiotic Active Cymbalta Active Xanax prn Active Omeprazole 20 MG 1 capsule 30 minutes before morning meal Orally Once a day for 30 day(s) Active Social History Tobacco Use: Social History [...] W/U Status Risk Notes Problem Atherosclerosis of cahuilla arteries of the extremities (293585811918637) Atherosclerosis of cahuilla artery of both lower extremities, with unspecified presence of clinical manifestation (I70.203) Active confirmed Problem 69564594 Essential hypertension (I10) Active confirmed Vital Signs Blood pressure diastolic 80 mm Hg 06/04/2024 Height 5ft in 06/04/2024 Blood pressure systolic 120 mm Hg 06/04/2024 Weight 134 lbs 06/04/2024 BMI 26.17 kg/m2 06/04/2024 Procedures Procedure Date Ordered Date Performed Result Body Sit e 38305-LWGFQVL NAIL, 6 OR MORE 12/07/2023 N/A 46781-DPPE SKIN LESIONS, 2 TO 4 12/07/2023 N/A 80399-YJJCDII NAIL, 6 OR MORE 03/08/2024 N/A 87920-Pqvbtdcx Plate 03/08/2024 N/A 55072-ZDUQ SKIN LESIONS, 2 TO 4 03/08/2024 N/A 83773-RFUCBPX NAIL, 6 OR MORE 06/04/2024 N/A 00051-PWXB SKIN LESIONS, 2 TO 4 06/04/2024 N/A Encounters Encounter Location Date [facility] [address] 12/07/2023 Jose Baker Atherosclerosis of cahuilla artery of both lower extremities, with unspecified presence of clinical manifestation I70.203 ; Tinea unguium B35.1 ; Pain in right toe(s) M79.674 ; Pain in left toe(s) M79.675 ; Pain in left foot M79.672 ; Pain in left ankle and joints of left foot M25.572 ; Bursitis of left foot M77.52 and Hallux valgus (acquired), left foot M20.[address] [facility] [address] 03/08/2024 Jose Baker Atherosclerosis of cahuilla artery of both lower extremities, with unspecified presence of clinical manifestation I70.203 ; Tinea unguium B35.1 ; Pain in right toe(s) M79.674 ; Pain in left toe(s) M79.675 ; Ingrown nail L60.0 and Xerosis of skin L85.[address] [facility] [address] 06/04/2024 Jose Samuel Atherosclerosis of cahuilla artery of both lower extremities, with unspecified presence of clinical manifestation I70.203 ; Tinea unguium B35.1 ; Pain in right toe(s) M79.674 ; Pain in left toe(s) M79.675 and Xerosis of skin L85.[address] [address] 09/13/2023 Jose Baker Assessments Encounter Date Diagnosis (ICD Code) Assessment Notes Treatment Notes Treatment Clinical Notes Section Notes 12/07/2023 Atherosclerosis of cahuilla artery of both lower extremities, with unspecified presence of clinical manifestation (ICD-10 - I70.203) 03/08/2024 Tinea unguium (ICD-10 - B35.1) 03/08/2024 Atherosclerosis of cahuilla artery of both lower extremities, with unspecified presence of clinical manifestation (ICD-10 - I70.203) 06/04/2024 Tinea unguium (ICD-10 - B35.1) 06/04/2024 Atherosclerosis of cahuilla artery of both lower extremities, with unspecified presence of clinical manifestation (ICD-10 - I70.203) 06/04/2024 Pain in right toe(s) (ICD-10 - M79.674) 03/08/2024 Pain in right toe(s) (ICD-10 - M79.674) 12/07/2023 Tinea unguium (ICD-10 - B35.1) 12/07/2023 Pain in right toe(s) (ICD-10 - M79.674) 03/08/2024 Pain in left toe(s) (ICD-10 - M79.675) 06/04/2024 Pain in left toe(s) (ICD-10 - M79.675) 03/08/2024 Ingrown nail (ICD-10 - L60.0) 06/04/2024 Xerosis of skin (ICD-10 - L85.3) 12/07/2023 Pain in left toe(s) (ICD-10 - M79.675) 12/07/2023 Pain in left foot (ICD-10 - M79.672) 12/07/2023 Pain in left ankle and joints of left foot (ICD-10 - M25.572) 03/08/2024 Xerosis of skin (ICD-10 - L85.3) 12/07/2023 Bursitis of left foot (ICD-10 - M77.52) 12/07/2023 Hallux valgus (acquired), left foot (ICD-10 - M20.12) Plan Of Treatment Pending Test Test Name Order Date 72862-YNMNTZT NAIL, 6 OR MORE 12/07/2023 42515-WJYAVTZ NAIL, 6 OR MORE 03/08/2024 87797-FLZVHPU NAIL, 6 OR MORE 06/04/2024 76291-Vjwlljjg Plate 03/08/2024 20176-OQGV SKIN LESIONS, 2 TO 4 03/08/20 24 41608-IVLZ SKIN LESIONS, 2 TO 4 12/07/19 24 71963-AIDB SKIN LESIONS, 2 TO 4 06/04/20 24 Next Appt Details Provider Name:Jose Baker , 08/30/2024 03:00:00 PM, [address] [address], [place], [address], Insurance Providers Payer Name Payer Address Payer Phone Subscriber Number Group Number Insured Name Patient Relationship to Insured Coverage Start Date Coverage End Date Medicare [facility] [address] [place] [address] [id number] Madison Navarro Self - patient is the insured [employer] Blue [employer] [address] [place] [address] [id number] Madison Navarro Self - patient is the insured Medical (General) History Medical History History ICD Code abdominal pain Sjogren syndrome Low back pain Acute Sinusitis Osteoporosis Elevated LFTs Headaches/Migraines Hypercholesterolemia Nephrolithiasis epigastric Anxiety Depression Reflux ( GERD) Allergic rhinitis Constipation Tinnitus Hepatitis Measles Mumps Chicken pox Arthritis Hypertension Surgical History Surgery Date(Month/Year) tonsillectomy and adenoidectomy 1958 appendectomy 1998 Gall bladder removal 1999 trigger finger release knee surgery, right 2016
== END 2024-06-29 14:57 | disposition home or self-care (01) ==
PROVIDERS: PCP Internal Medicine; Visit Provider Internal Medicine
DX: M81.0 Age-related osteoporosis without current pathological fracture (principal); E78.00 Pure hypercholesterolemia, unspecified; K21.9 Gastro-esophageal reflux disease without esophagitis; M35.00 Sjogren syndrome, unspecified; N20.0 Calculus of kidney; G43.109 Migraine with aura, not intractable, without status migrainosus; R73.01 Impaired fasting glucose; F41.1 Generalized anxiety disorder

== ENCOUNTER → 2024-06-29 13:51 | Outpatient (BNVA) | payer MEDICARE, SELFPAY | PROVIDERS: PCP Internal Medicine; Visit Provider Internal Medicine | DX: E78.00 Pure hypercholesterolemia, unspecified (principal); K21.9 Gastro-esophageal reflux disease without esophagitis; M81.0 Age-related osteoporosis without current pathological fracture; F41.1 Generalized anxiety disorder; M35.00 Sjogren syndrome, unspecified; N20.0 Calculus of kidney; G43.109 Migraine with aura, not intractable, without status migrainosus; R73.01 Impaired fasting glucose; Z87.442 Personal history of urinary calculi | CPT/HCPCS: 96127; 99212 ==

== ENCOUNTER 2024-07-03 10:46 | Outpatient (REF) | payer MEDICARE, SELFPAY ==
[2024-07-03 11:08] LABS: MANUAL DIFF FLAG NO
[2024-07-03 11:54] LABS: Basophils Percent Auto 0.5 % (0-2); Eosinophils Absolute Auto 0.3 X10*3/uL (0.0-0.4); Eosinophils Percent Auto 5.1 % (0-4); Hematocrit 41.8 % (37.0-47.0); Hemoglobin 14.1 g/dl (12.0-16.0); Imm Gran Abs Auto 0.03 X10*3/uL (0.00-0.03); Imm Gran Pct Auto 0.5 % (0.0-0.4); Lymphocytes Absolute Auto 1.7 X10*3/uL (1.2-4.9); Lymphocytes Percent Auto 27.6 % (20-40); Mean Corpuscular HGB Conc 33.7 g/dl (31.0-35.0); Mean Corpuscular Hemoglobin 33.1 pg (27.0-33.0); Mean Corpuscular Volume 98.1 fL (80.0-98.0); Mean Platelet Volume 9.7 fL (9.4-12.3); Monocytes Absolute Auto 0.8 X10*3/uL (0.1-1.2); Monocytes Percent Auto 13.2 % (2-11); Neutrophils Absolute Auto 3.3 x10*3/uL (2.0-8.3); Neutrophils Percent Auto 53.1 % (45-73); Platelet Count 217 X10*3/uL (160-400); Red Blood Count 4.26 X10*6/uL (4.20-5.50); Red Cell Distribution Width 13.2 % (11.0-16.0); White Blood Count 6.3 X10*3/uL (4.8-10.8)
--- OUTSIDE RECORDS SUMMARY | 2024-07-03 12:00 | XMS_ITS ---
Author Organization [facility] Address [address] [place] [address] Care Team Providers Care Pallet Sorter Name Role Phone Dariwn Hopper Primary Care Provider Jose Velasquez Unavailable [phone] Allergies Allergen (clinical drug ingredient) Drug/Non Drug [...] even ing Orally Once a day Active [place] 3 Active ALPRAZolam 0.5 MG 1 tablet [...] W/U Status Risk Notes Problem Atherosclerosis of [place] arteries of the extremities ([id number]) Atherosclerosis of [place] artery of both lower extremities, with unspecified presence of clinical manifestation (I70.203) Active confirmed Vital Signs Height 5ft in 12/07/2023 Weight 132 lbs 12/07/2023 BMI 25.78 kg/m2 12/07/2023 Procedures Procedure Date Ordered Date Performed Result Body Sit e 62176-WKZZDZF NAIL, 6 OR MORE 12/07/2023 N/A 88328-FQDY SKIN LESIONS, 2 TO 4 12/07/2023 N/A Encounters Encounter Location Date Provider Diagnosis [facility] [address] [address] 12/07/2023 Jose Baker Atherosclerosis of [place] artery of both lower extremities, with unspecified [...] Clinical Notes Section Notes 12/07/2023 Atherosclerosis of [place] artery of both lower extremities, with unspecified [...] Treatment Pending Test Test Name Order Date 72065-UIDCLWM NAIL, 6 OR MORE 12/07/2023 82101-PSQS SKIN LESIONS, 2 TO 4 12/07/19 24 Next Appt Details Follow Up: prn, Reason: Provider Name:Jose Baker , 08/30/2024 03:00:00 PM, [address] [facility], [address], [place], [address], Procedure Notes * Category Sub-Category Detail Notes [...] as necessary. Patient chooses, no pharmaceutical tx (38755) Keratoma Treatment Parring or Cutting o f Benign Hyperkeratotic Lesion(s) 23637 ( 2-4 Lesions ) - The Benign hyperkeratotic lesions, as described above were pared, and/or cut utilizing a sterile 15 blade, tissue nippers, and/or dremel , Q8 Progress Notes * DEONJESSERoseB:1950 ( 73 yo F)Acc No.[id number]:12/07/2023 Progress Notes Patient:?Madison Navarro Provider:?Jose Baker DPM :1950???Age:73 Y???Sex:Female D ate:12/07/2023 Address:[address] [facility], [facility] Pcp:Darwin Hopper Subjective: * Chief Complaints: * [...] detector use. ?Marital status: . ?Occupation: Retired, [employer] * Medications:?TakingXanax , N otes: prnCymbalta [...] into affected eye Ophthalmic every 12 hrsTaking [place] 3 Taking Simvastatin 5 MG Tablet 1 [...] and time.? Assessment: * Assessment: 1.?Atherosclerosis of [place] artery of both lower extremities, with unspecified presence of clinical manifestation - I70.203?2.?Tinea unguium - B35.1?3.?Pain in right toe(s) - M79.674?4.?Pain in left toe(s) - M79.675?5.?Pain in left foot - M79.672 (Primary)?6.?Pain in left ankle and joints of left foot - M25.572?7.?Bursitis of left foot - M77.52?8.?Hallux valgus (acquired), left foot - M20.12, Acute problem, Uncomplicated (3)? Plan: * Treatment: 2.?Tinea unguium?Procedure: 18286-MPNWRXU NAIL, 6 OR MORE * Procedures:?Debride Nail 6-10:?Nail debridement?Nail debridement performed extensively to reduce/remove overall nail length, girth, thickness, subungual debris, and necrotic tissue, by manual and electrical means through the use of a nail nipper and/or dremel, to more viable healthy nail plate or bed tissue 1-5. Silver nitrate used for any petechial bleeding as necessary. Patient chooses, no pharmaceutical tx (10750).?Keratoma Treatment:?Parring or Cutting of Benign Hyperkeratotic Lesion(s)?54875 ( 2-4 Lesions ) - The Benign hyperkeratotic lesions, as described above were pared, and/or cut utilizing a sterile 15 blade, tissue nippers, and/or dremel , Q8.? * Procedure Codes:?21114 DEBRI DE NAIL, 6 OR MORE, Modifiers: XS 87097 TRIM SKIN LESIONS, 2 TO 4, Modifiers: [...] Baker DPM Date:?2023 Generated for Miranda mariee/Tony/Rodrigo on:?07/03/2024 12:00 PM EST History and Physical Notes * [...]
--- OUTSIDE RECORDS SUMMARY | 2024-07-03 12:00 | XMS_ITS ---
Author Organization [facility] Address [address] [facility] [place] [address] Care Team Providers Care Scrummaster Name Role Phone Darwin Hopper Primary Care Provider Jose Velasquez Unavailable [phone] Allergies Allergen (clinical drug ingredient) Drug/Non Drug [...] Orally Once a day Active Probiotic Active [place] 3 Active Vitamin D Active Cequa 0.09 [...] Ordered Date Performed Result Body Sit e 73642-BWCOWBF NAIL, 6 OR MORE 03/08/2024 N/A 10330-Vjbvbefu Plate 03/08/2024 N/A 34465-CDMY SKIN LESIONS, 2 TO 4 03/08/2024 N/A Encounters Encounter Location Date Provider Diagnosis [facility] [address] [address] 03/08/2024 Jose Baker Atherosclerosis of rosebud artery of both lower extremities, with unspecified presence of clinical manifestation I70.203 ; Tinea unguium B35.1 ; Pain in right toe(s) M79.674 ; Pain in left toe(s) M79.675 ; Ingrown nail L60.0 and Xerosis of skin L85.3 Assessments Encounter Date Diagnosis (ICD Code) Assessment Notes Treatment Notes Treatment Clinical Notes Section Notes 03/08/2024 Atherosclerosis of rosebud artery of both lower extremities, with unspecified [...] days Pending Test Test Name Order Date 76278-FQXRIII NAIL, 6 OR MORE 03/08/2024 40428-Jndhtpqp Plate 03/08/2024 55723-DLUM SKIN LESIONS, 2 TO 4 03/08/20 24 Next Appt Details Follow Up: prn, Reason: Provider Name:Jose Baker , 08/30/2024 03:00:00 PM, [address] [facility], [address], [place], [address], Procedure Notes * Category Sub-Category Detail Notes [...] Motrin was recommended for pain or discomfort (44856), CIRCULATION: Pt was advised as to the [...] use of a nail nipper and/or dremel-type blade grinder, to a more viable healthy nail plate or bed tissue 6-10. Silver nitrate used for any petechial bleeding as necessary. Definitive antifungal treatment options have been reviewed and discussed with the patient. The patient chooses, no pharmaceutical tx - 41487 Keratoma Treatment Parring or Cutting o f Benign Hyperkeratotic Lesion(s) (-56) 2-4 Lesions - The Benign hyperkeratotic lesions, as described above were pared, and/or cut utilizing a sterile 15 blade, tissue nippers, and/or dremel - 10344, Q8 Progress Notes * Rose NAVARROB:1950 ( 73 yo F)Acc No.[id number]:03/08/2024 Progress Note Patient:?Madison Navarro Provider:?Jose Baker DPM :1950???Age:73 Y???Sex:Female D ate:03/08/2024 Address:[address] [place] [address] Pcp:Darwin Hopper Subjective: * Chief Complaints: * [...] detector use. ?Marital status: . ?Occupation: Retired, [employer] * Medications:?TakingSEROquel 25 MG Tablet [...] into affected eye Ophthalmic every 12 hrsTaking [place] 3 Taking Simvastatin 5 MG Tablet 1 [...] Assessment: 1.?Tinea unguium - B35.1?2.? Atherosclerosis of rosebud artery of both lower extremities, with unspecified presence of clinical manifestation - I70.203?3.?Pain in right toe(s) - M79.674?4.?Pain in left toe(s) - M79.675?5.?Ingrown nail - L60.0, Lateral nail border, T5?6.?Xerosis of skin - L85.3, Acute problem, Uncomplicated (3),Rx Management (4)? Plan: * Treatment: 2.?Atherosclerosis of rosebud artery of both lower extremities, with unspecified presence of clinical manifestation?Procedure: 90645-GZKF SKIN LESIONS, 2 TO 4 3.?Ingrown nail?Procedure: 89090-Nloulfwk Plate 4.?Xerosis of skin? Start Ammonium Lactate [...] use of a nail nipper and/or dremel-type blade grinder, to a more viable healthy nail plate or bed tissue 6-10. Silver nitrate used for any petechial bleeding as necessary. Definitive antifungal treatment options have been reviewed and discussed with the patient. The patient chooses, no pharmaceutical tx - 77580.?Keratoma Treatment:?Parring or Cutting of Benign Hyperkeratotic Lesion(s)?(-56) 2-4 Lesions - The Benign hyperkeratotic lesions, as described above were pared, and/or cut utilizing a sterile 15 blade, tissue nippers, and/or dremel - 41782, Q8.?Nail Avulsion:?Location?Lateral nail border, T5.?Anesthesia?2cc of 1 [...] Motrin was recommended for pain or discomfort (51178), CIRCULATION: Pt was advised as to the risk of delayed or nonhealing due to circulation. Pt is to call the office with any questions, concerns, or complications.? * Procedure Codes:?28772 DEBRI DE NAIL, 6 OR MORE, Modifiers: XS 65852 Avulsion Plate, Modifiers: XS , [id number] TRIM SKIN LESIONS, 2 TO 4, Modifiers: [...]
--- OUTSIDE RECORDS SUMMARY | 2024-07-03 12:01 | XMS_ITS | Patient Health Record ---
Author Organization [facility] Address [address] [place] [address] Care Team Providers Care Medical Reimbursement Manager Name Role Phone Darwin Hopper Primary Care Provider Unavailagustin e Jose Baker Unavailable [phone] Allergies Allergen (clinical drug ingredient) Drug/Non Drug [...] even ing Orally Once a day Active [place] 3 Active traZODone HCl 100 MG 1 [...] W/U Status Risk Notes Problem Atherosclerosis of [place] arteries of the extremities (647992534110493) Atherosclerosis of [place] artery of both lower extremities, with unspecified presence of clinical manifestation (I70.203) Active confirmed Problem 80754551 Essential hypertension (I10) Active confirmed Vital Signs Blood pressure diastolic 80 mm Hg 06/04/2024 Height 5ft in 06/04/2024 Blood pressure systolic 120 mm Hg 06/04/2024 Weight 134 lbs 06/04/2024 BMI 26.17 kg/m2 06/04/2024 Procedures Procedure Date Ordered Date Performed Result Body Sit e 89754-JAXZFMG NAIL, 6 OR MORE 12/07/2023 N/A 24720-QMPM SKIN LESIONS, 2 TO 4 12/07/2023 N/A 81020-AYGHPIT NAIL, 6 OR MORE 03/08/2024 N/A 70960-Aaucazph Plate 03/08/2024 N/A 38276-YHPS SKIN LESIONS, 2 TO 4 03/08/2024 N/A 59838-RWMPQTA NAIL, 6 OR MORE 06/04/2024 N/A 64745-VTHV SKIN LESIONS, 2 TO 4 06/04/2024 N/A Encounters Encounter Location Date [facility] [address] 12/07/2023 Jose Baker Atherosclerosis of [place] artery of both lower extremities, with unspecified presence of clinical manifestation I70.203 ; Tinea unguium B35.1 ; Pain in right toe(s) M79.674 ; Pain in left toe(s) M79.675 ; Pain in left foot M79.672 ; Pain in left ankle and joints of left foot M25.572 ; Bursitis of left foot M77.52 and Hallux valgus (acquired), left foot M20.[address] [facility] [address] 03/08/2024 Jose Baker Atherosclerosis of [place] artery of both lower extremities, with unspecified presence of clinical manifestation I70.203 ; Tinea unguium B35.1 ; Pain in right toe(s) M79.674 ; Pain in left toe(s) M79.675 ; Ingrown nail L60.0 and Xerosis of skin L85.3 [facility] [address] 06/04/2024 Jose Samuel Atherosclerosis of [place] artery of both lower extremities, with unspecified presence of clinical manifestation I70.203 ; Tinea unguium B35.1 ; Pain in right toe(s) M79.674 ; Pain in left toe(s) M79.675 and Xerosis of skin L85.[address] [address] 09/13/2023 Jose Baker Assessments Encounter Date Diagnosis (ICD Code) Assessment Notes Treatment Notes Treatment Clinical Notes Section Notes 03/08/2024 Tinea unguium (ICD-10 - B35.1) 03/08/2024 Atherosclerosis of [place] artery of both lower extremities, with unspecified presence of clinical manifestation (ICD-10 - I70.203) 06/04/2024 Tinea unguium (ICD-10 - B35.1) 06/04/2024 Atherosclerosis of [place] artery of both lower extremities, with unspecified presence of clinical manifestation (ICD-10 - I70.203) 12/07/2023 Atherosclerosis of [place] artery of both lower extremities, with unspecified presence of clinical manifestation (ICD-10 - I70.203) 12/07/2023 Tinea unguium (ICD-10 - B35.1) 06/04/2024 Pain in right toe(s) (ICD-10 - M79.674) 03/08/2024 Pain in right toe(s) (ICD-10 - M79.674) 03/08/2024 Pain in left toe(s) (ICD-10 - M79.675) 06/04/2024 Pain in left toe(s) (ICD-10 - M79.675) 12/07/2023 Pain in right toe(s) (ICD-10 - M79.674) 12/07/2023 Pain in left toe(s) (ICD-10 - M79.675) 06/04/2024 Xerosis of skin (ICD-10 - L85.3) 03/08/2024 Ingrown nail (ICD-10 - L60.0) 03/08/2024 Xerosis of skin (ICD-10 - L85.3) 12/07/2023 Pain in left ankle and joints of left foot (ICD-10 - M25.572) 12/07/2023 Pain in left foot (ICD-10 - M79.672) 12/07/2023 Bursitis of left foot (ICD-10 - M77.52) 12/07/2023 Hallux valgus (acquired), left foot (ICD-10 - M20.12) Plan Of Treatment Pending Test Test Name Order Date 38319-UXMUQDV NAIL, 6 OR MORE 12/07/2023 27618-HVRAYUD NAIL, 6 OR MORE 03/08/2024 62160-RAEASQW NAIL, 6 OR MORE 06/04/2024 09546-Xixxynhz Plate 03/08/2024 35805-DZTM SKIN LESIONS, 2 TO 4 03/08/20 24 76753-DAAK SKIN LESIONS, 2 TO 4 12/07/19 24 63779-ARPI SKIN LESIONS, 2 TO 4 06/04/20 24 Next Appt Details Provider Name:Jose Baker , 08/30/2024 03:00:00 PM, [address] [address], [place], [address], Insurance Providers Payer Name Payer Address Payer Phone Subscriber Number Group Number Insured Name Patient Relationship to Insured Coverage Start Date Coverage End Date Medicare National [facility] [address] [place] [address] [id number] Madison Navarro Self - patient is the insured [employer] Blue Shield [address] [place] [address] [phone] [id number] Madison Navarro Self - patient is the [...]
--- OUTSIDE RECORDS SUMMARY | 2024-07-03 12:01 | XMS_ITS | Patient Health Record ---
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) Active confirmed 51976695 Problem Dorsalgia, unspecified (M54.9) Active confirmed 481452849 Problem Elevated LFTs (R79.89) Active confirmed 654060781 Problem Gastroesophageal reflux disease without esophagitis (K21.9) Active confirmed 253461276 Problem Dysphagia, unspecified type (R13.10) Active confirmed 02194198 Problem Abdominal pain, LLQ (R10.32) Active confirmed 865847918 Problem Irritable bowel syndrome with constipation (K58.1) Active confirmed 045032596 Problem FH: colon polyps (Z83.71) Active confirmed 187223645 Problem LLQ pain (R10.32) Active confirmed 3017 01995 PLAN OF TREATMENT Pending Test Test Name Order Date LIVER PROFILE 07/01/2022 XR GI SERIES 09/22/2017 Future Test Test Name Order Date COLONOSCOPY 12/10/2013 UPPER GI ENDOSCOPY 09/22/2017 COLONOSCOPY 05/08/2020 Next Appt Details Provider Name:Zoltan turner , 07/12/2024 02:15:00 PM, [address] [place] [address], [address], [place], [address], Insurance Providers Payer Name Payer Address Payer Phone Subscriber Number Group Number Insured Name Patient Relationship to Insured Coverage Start Date Coverage End Date [place] [address] [place] [address] [id number] KIKE TRAN Self - patient is the insured [employer] CLAIMS [address] [place] [address] [phone] [id number] KIKE TRAN Self - patient is the [...] surgery Right meniscus surgery 06/2018 Cataract repairs 03/2019r /04/2019L knee surgery aug 13, 2022
--- OUTSIDE RECORDS SUMMARY | 2024-07-03 12:01 | XMS_ITS ---
Author Organization [facility] Address [address] [place] [address] Care Team Providers Care Leg Breaker Name Role Phone Po Darwin GONZALES Primary Care Provider Zoltan Gratn Jr Unavailable ALLERGIES Allergen (clinical drug ingredient) [...] Multi Vitamin/Minerals - 1 Orally QD Active Media 3 1000 MG 1 AND half capsule [...] 06/30/2023 Encounters Encounter Location Date Provider Diagnosis [facility] [address] [place] [address] 06/30/2023 Zoltan Vazquez Jr Gastroesophageal reflux disease [...] 02:15:00 PM, [address], [address], [place], [address],
--- OUTSIDE RECORDS SUMMARY | 2024-07-03 12:01 | XMS_ITS ---
Author Organization [facility] Address [address] [place] [address] Care Team Providers Care Traveling Clerk Name Role Phone Po Darwin GONZALES Primary Care Provider Edna Vazquez Jr, Zoltan Haines [phone] REASON FOR VISIT pain MEDICATIONS Medication SIG (Take, Route, Fr equency, Duration) Notes Start Date End Date Status Dicyclomine HCl 10 MG 1 tablet Orally 2- 4 times a day 03/04/2023 Active Encounters Encounter Location Date Provider Diagnosis [facility] [address] [facility] [address] [place] [address] 03/04/2023 Zoltan Vazquez Jr PLAN OF TREATMENT Medication Medication Name Sig Start Date Stop Date Notes Dicyclomine HCl 10 MG 1 tablet Orally 2-4 times a day 01/2023 Next Appt Details Provider Name:Zoltan turner Jr, 07/12/2024 02:15:00 PM, [address] [place] [address], [address], [place], [address],
[2024-07-03 12:35] LABS: Erythrocyte Sedimentation Rate 12 MM/HR (0-20)
[2024-07-03 12:58] LABS: Alanine Aminotransferase 34 U/L (0-31); Albumin Level 3.8 g/dL (3.5-5.0); Alkaline Phosphatase 55 U/L (39-117); Anion Gap 10 (12-20); Aspartate Amino Transferase 31 U/L (5-31); Bilirubin Total 0.3 mg/dL (0.0-1.0); Blood Urea Nitrogen 17 mg/dL (9-16); C Reactive Protein 0.36 mg/dL (< or = 0.50); Calcium 9.5 mg/dL (8.4-10.2); Carbon Dioxide 29 mmol/L (22-29); Chloride 109 mmol/L (96-108); Cholesterol 169 mg/dL (<200); Estimated Glomerular Filt Rate 57; Glucose Random 120 mg/dL (60-115); HDL Cholesterol 48 mg/dL (>40); LDL Cholesterol Calculated 101 mg/dL (<100); Potassium 4.1 mmol/L (3.3-5.1); Sodium 144 mmol/L (135-145); Total Protein 6.6 g/dL (6.5-8.0); Triglycerides 102 mg/dL (<150)
[2024-07-03 13:02] LABS: Free T4 (Free Thyroxine) 0.87 ng/dL (0.71-1.85); Thyroid Stimulating Hormone 2.67 uIU/mL (0.32-4.0); Vitamin D 25-OH Total 33.3 ng/mL (>30)
[2024-07-03 13:06] LABS: Folate 8.2 ng/mL (> or = 4.0); Vitamin B12 634 pg/mL (200-900)
== END 2024-07-03 10:47 | disposition home or self-care (01) ==
LOC: HO.LAB 10:46
PROVIDERS: PCP Internal Medicine; Visit Provider Internal Medicine
DX: E78.00 Pure hypercholesterolemia, unspecified (principal)
CPT/HCPCS: 36415; 80053; 80061; 82306; 82607; 82746; 84439; 84443; 85025; 85652; 86140

== ENCOUNTER 2024-08-30 13:12 | Outpatient (REF) | payer MEDICARE, SELFPAY ==
--- OUTSIDE RECORDS SUMMARY | 2024-08-30 15:59 | XMS_ITS | Clinical Summary ---
Author Organization [facility] Address [address] [place] [address] Phone Care Team Providers Care Sewage Plant Attendant Name Role Phone Darwin Hopper MD Primary Care Provider [phone] Surgical History Surgery Date Site/Laterality Comments ADENOIDECTOMY PROCEDURE:ADENOIDECTOMY APPENDECTOMY PROCEDURE:APPENDECTOMY CHOLECYSTECTOMY PROCEDURE:CHOLECYSTECTOMY Medical History Medical History Date Comments Osteoporosis DX:Osteoporosis Arthritis DX:Arthritis GERD (gastroesophageal reflux disease) DX:GERD (gastroesophageal reflux disease) Social History Tobacco Use Types Packs/Day Years Used Date Smoking Tobacco: Never Assessed Comments Unknown Sex and Gender Information Value Date Recorded Sex Assigned at Female 08/10/2024 12:16 PM EST Legal Sex Female 11:40 PM EST Gender Identity Female 08/10/2024 12:16 PM EST Sexual Orientation Straight 08/10/2024 12 :16 PM EST Obstetrics History Plan of Treatment Upcoming Encounters Date Type Department Care Team (Late st Contact Info) Description 09/13/2024 2:00 PM EDT Appointment [facility] [address] [address] Health Maintenance Due Date Last Done Comments DTaP,Tdap,and Td Vaccines (1 - Tdap) 1968 Pneumococcal Vaccine: 50+ Years (1 of 1 - PCV) 1999 Zoster Vaccines (1 of 2) 1999 Colorectal Cancer Screening: Colonoscopy 06/04/2022 Depression Screening 06/04/2022 Falls Risk Assessment 06/04/2022 Hepatitis C Screening 06/04/2022 Medicare Annual Wellness Visit 06/04/2022 Social Influencers of Health Screening 06/04/2022 COVID-19 Vaccine ( - season) 2024 Influenza Vaccine (#1) 2024 RSV Immunization Patients 60+ Years Old (1 - 1-dose 75+ series) 2024 Osteoporosis Screening (Bone Density Screening) 07/18/2033 07/18/2023, 06/02/2021, 04/23/2019 Breast Cancer Screening Discontinued 07/18/19 24, 07/14/2022, 06/02/2021, Additional history exists HIB Vaccines Aged Out No longer eligi ble based on patient's age to complete this topic HPV Vaccines Aged Out No longer eligi ble based on patient's age to complete this topic Hepatitis A Vaccines Aged Out No long er eligible based on patient's age to complete this topic Hepatitis B Vaccines Aged Out No long er eligible based on patient's age to complete this topic IPV Vaccines Aged Out No longer eligi ble based on patient's age to complete this topic MMR Vaccines Aged Out No longer eligi ble based on patient's age to complete this topic Meningococcal ACWY Vaccine Aged Out N o longer eligible based on patient's age to complete this topic Meningococcal B Vacine Aged Out No lo nger eligible based on patient's age to complete this topic RSV Immunization Patients Under 20 months Aged Out No longer eligible based on patient's age to complete this topic Varicella Vaccines Aged Out No longer eligible based on patient's age to complete this topic Procedures Procedure Name Priority Date/Time Associated Diagnosis Comments [facility] DEXA AXIAL SKELETON Routine 07/18/2023 3:48 PM EST Encounter for screening for osteoporosis [facility] SCREENING DIGITAL Routine 07/18/2023 3:39 PM EST Encounter for screening mammogram for malignant neoplasm of breast from Last 3 Months or Most Recently Relevant to Health Maintenance Results * [facility] DEXA AXIAL SKELETON (07/18/2023 3:48 PM EST) Anatomical Region Laterality Modality Mammography 07/18/2023 2:51 PM EST Narrative 07/18/2023 3:48 PM EST [facility] Diagnostic Imaging Department [address] [place] [address] Patient: ??KIKE NAVARRO ?/Age/Sex: 1950 - 73 - F Unit#: ??[id number] ? Location/Status: ??SPDIMAM/REG CLI ? Mnemonic/Ordering Site: ??MAMDEXAAX/SPMAM Ordering Physician: ??ANALILIA OWENS MD Jaime Dexa Axial Skeleton - 07/18/23 - 1525 Report Status:Signed History: Low estrogen state due to menopause. Personal history of fracture. Height loss. Comparison: 06/02/21 Findings: Bone densitometry is performed utilizing dual energy x-ray absorptiometry (DXA) in the [employer] unit. The lumbar spine and proximal femora are evaluated in the AP projection. The FRAX questionaire was completed. The results indicate osteoporosis, with a right femoral neck T-score of -2.6. The Z score is -0.6, indicating bone mineral density within the range of normal for age. There has been no statistically significant change. ??The detailed DEXA report will be mailed to the referring physician's office. [employer] FRAX: 10-year Probability of Fracture: Major Osteoporotic 25.9 percent ??Hip 8.1 percent. IMPRESSION: Osteoporosis. [id number] Dictating Physician: ??BAILEY NIETO MD Electronically Signed by: ??BAILEY NIETO MD Dic Date/Time: ??07/18/23 1547 Sign date/Time: ??07/18/23 1548 Procedure Note Bailey Nieto MD - 02/13/2024 [facility] Diagnostic Imaging Department [address] [place] [address] Patient: KIKE NAVARRO Bee /Age/Sex: 1950 - 73 - F Unit#: [id number] Location/Status: SPDIMAM/REG CLI Mnemonic/Ordering Site: MAMDEXAAX/SPMAM Ordering Physician: ANALILIA OWENS MD [facility] Dexa Axial Skeleton - 07/18/23 - 1525 Report Status:Signed History: Low estrogen state due to menopause. Personal history offracture. Height loss. Comparison: 06/02/21 Findings: Bone densitometry is performed utilizing dual energy x-ray absorptiometry(DXA) in the [employer] unit. The lumbar spine and proximal femora areevaluated in the AP projection. The FRAX questionaire was completed. The results indicate osteoporosis, with a right femoral neck T-score of-2.6. The Z score is -0.6, indicating bone mineral density within the range ofnormal for age. There has been no statistically significant change. The detailed DEXAreport will be mailed to the referring physician's office. [employer] FRAX: 10-year Probability of Fracture: Major Osteoporotic 25.9 percent Hip 8.1 percent. IMPRESSION: Osteoporosis. [id number] Dictating Physician: BAILEY NIETO MD Electronically Signed by: BAILEY NIETO MD Dic Date/Time: 07/18/230 Sign date/Time: 07/18/239 us Analilia Owens MD IMG BI PROCEDURES Final Re sult * [facility] SCREENING DIGITAL (07/18/2023 3:39 PM EST) Anatomical Region Laterality Modality Mammography 07/18/2023 2:54 PM EST Narrative 07/18/2023 3:39 PM EST [facility] Diagnostic Imaging Department [address] [place] [address] Patient: ??KIKE NAVARRO ?/Age/Sex: 1950 - 73 - F Unit#: ??[id number] ? Location/Status: ??SPDIMAM/REG CLI ? Mnemonic/Ordering Site: ??DIGSC/SPMAM Ordering Physician: ??ANALILIA OWENS MD [facility] Screening Digital - 07/18/23 - 1530 Report Status:Signed EXAM: [facility] Screening Digital EXAM DATE AND TIME: 07/18/2023 3:30 PM HISTORY: ??Annual screening COMPARISON: ??multiple exams dating back to 2005 TECHNIQUE: Bilateral digital breast tomosynthesis was performed in the CC and MLO projections. Computer aided detection with [employer] 3D 3.1 was employed. TISSUE DENSITY: b. There are scattered areas of fibroglandular density. FINDINGS: No suspicious masses, grouped microcalcifications, or areas of architectural distortion are seen. The skin and vascularity are unremarkable. IMPRESSION: Stable mammographic appearance of the breasts. ??No evidence of malignancy is seen. A negative mammogram in the presence of a clinically suspicious palpable abnormality does not preclude the possibility of malignancy or alter the indications for biopsy. BI-RADS: ??Category 1: Negative RECOMMENDATION(S): 1: Routine screening mammogram BILATERAL in 1 year. 0091F, 7030F Dictating Physician: ??LAVELLE JUNIOR MD Electronically Signed by: ??LAVELLE JUNIOR MD Dic Date/Time: ??07/18/231537 Sign date/Time: ??07/18/231538 Procedure Note Lavelle Junior MD - 02/13/2024 [facility] Diagnostic Imaging Department [address] [place] [address] Patient: KIKE NAVARRO Bee /Age/Sex: 1950 - 73 - F Unit#: [id number] Location/Status: [facility] Mnemonic/Ordering Site: [facility] Ordering Physician: ANALILIA OWENS MD [facility] Screening Digital - 07/18/23 - 1529 Report Status:Signed EXAM: [facility] Screening Digital EXAM DATE AND TIME: 07/18/2023 3:30 PM HISTORY: Annual screening COMPARISON: multiple exams dating back to 2005 TECHNIQUE: Bilateral digital breast tomosynthesis was performed in the CCand MLO projections. Computer aided detection with [employer] 3D 3.1was employed. TISSUE DENSITY: b. There are scattered areas of fibroglandular density. FINDINGS: No suspicious masses, grouped microcalcifications, or areas ofarchitectural distortion are seen. The skin and vascularity are unremarkable. IMPRESSION: Stable mammographic appearance of the breasts. No evidence of malignancyis seen. A negative mammogram in the presence of a clinically suspicious palpable abnormality does not preclude the possibility of malignancy or alter the indications for biopsy. BI-RADS: Category 1: Negative RECOMMENDATION(S): 1: Routine screening mammogram BILATERAL in 1 year. 3341F, 7025F Dictating Physician: LAVELLE JUNIOR MD Electronically Signed by: LAVELLE JUNIOR MD Dic Date/Time: 07/18/23 1538 Sign date/Time: 07/18/23 1539 Analilia Owens MD IMG BI PROCEDURES Final Re sult from Last 3 Months or Most Recently Relevant to Health Maintenance Insurance MEDICARE Care Teams Sewage Plant Attendant Relationship Specialty Start Date End Date Darwin Hopper MD [address] [place] [address] [address] [facility] [place] [address] PCP - General Internal Medicine 08/13/19
--- OUTSIDE RECORDS SUMMARY | 2024-08-30 15:59 | XMS_ITS ---
Author Organization [facility] Address [address] [place] [address] Care Team Providers Care Staking Technician Name Role Phone Darwin Hopper MD Primary Care Provider Edna Vazquez Jr, Zoltan Haines [phone] REASON FOR VISIT r/s appt Encounters Encounter Location Date Provider Diagnosis [facility] [address] [place] [address] 07/11/2024 Zoltan Vazquez Jr Plan Of Treatment Next Appt Details Provider Name:Zoltan turner Jr, 10/22/2024 01:35:00 PM, [address], [address], [place], [address], Progress Notes * KIKE TRANDOB:1950 (74 yo F)Acc No.[id number]:07/11/2024 Patient:?KIKE TRAN :1950???Age:74 Y???Sex:Female Address:[address] [place] [address] [place] [address] * true * Date:? Generated for Printi kodi/Tony/eTransmitting on:?08/30/2024 03:59 PM EST
--- OUTSIDE RECORDS SUMMARY | 2024-08-30 15:59 | XMS_ITS ---
Author Organization [facility] Address [address] [place] [address] Care Team Providers Care Iuss Acoustic Analyst Name Role Phone Darwin Hopper Primary Care Provider Jose Velasquez Unavailable [phone] REASON FOR VISIT rs from 08/30/24 Encounters Encounter Location Date Provider Diagnosis [facility] [address] [place] [address] 08/27/2024 Jose Baker Plan Of Treatment No Information Progress Notes * Windy NAVARRO:1950 ( 74 yo F)Acc No.[id number]:08/27/2024 Patient:?Madison NAVARRO :1950???Age:74 Y???Sex:Female [facility] [facility] * true * Date:? Generated for Printi kodi/Tony/eTransmitting on:?08/30/2024 03:58 PM EST
--- OUTSIDE RECORDS SUMMARY | 2024-08-30 15:59 | XMS_ITS ---
Author Organization [facility] Address [address] [place] [address] Care Team Providers Care Manufacturing Engineering Technician Name Role Phone Darwin Hopper Primary Care Provider Jose Velasquez Unavailable [phone] Allergies Allergen (clinical drug ingredient) Drug/Non Drug Allergy documented on EMR Reaction Allergy Type Onset Date Status codeine Codeine upset stomach Drug Allergy Act alexander Substance with sulfonamide structure and antibacterial mechanism of action (substance) Sulfa Antibiotics rash Drug Allergy Active REASON FOR VISIT At Risk Footcare, Painful Nail(s) aggravated by shoes and causing difficulty standing/walking., Possible Infection Medications Medication SIG (Take, Route, Frequency, Duration) Notes Start Date End Date Status traZODone HCl 100 MG 1 tablet at bedtime Orally Once a day for 30 day(s) Not-Taking Fluticasone Propionate Not-Taking Lexapro 10 MG 1 tablet Orally Once a day for 30 day(s) Not-Taking Asenapine Maleate 2.5 MG 2 tablets under the tongue and allow to dissolve Sublingual Twice a day for 30 day(s) Not-Taking SEROquel 25 MG 1 tablet at bedtime Orally Once a day Not-Taking Triamcinolone Acetonide 0.1 % External for 30 Days Active Ammonium Lactate 12 % 1 application Externally to feet except for between the toes Twice a day for 30 days Active Omeprazole 20 MG 1 capsule 30 minutes before morning meal Orally Once a day for 30 day(s) Active Multivitamin Active Metoprolol Succinate Not-Taking Calcium Magnesium Ac tive Vitamin B6 Active Probiotic Active Simvastatin 5 MG 1 tablet in the even ing Orally Once a day Active Bell 3 Active ALPRAZolam 0.5 MG 1 tablet Orally Twic e a day Active Cymbalta Active Xanax prn Active Cequa 0.09 % 1 drop into affected eye Ophthalmic every 12 hrs Active Vitamin D Active Social History Tobacco Use: Social History Observation Description Date Details (start date - stop date) Never Smoker NA - NA Tobacco Use/Smoking Question Answer Notes Are you a: nonsmoker Tobacco use other than smoking: Question Answer Notes Are you an other tobacco user? No Vital Signs Height 5ft in 08/30/2024 Weight 133 lbs 08/30/2024 BMI 25.97 kg/m2 08/30/2024 Blood pressure systolic 120 mm Hg 08/31/19 25 Blood pressure diastolic 80 mm Hg 025 Procedures Procedure Date Ordered Date Performed Result Body Sit e 99278-JKFSVIV NAIL, 6 OR MORE 08/30/2024 N/A 70050 I&D ABSCESS- SIMPLE,SINGLE 08/30/2024 N/A 29595-XEKK SKIN LESIONS, 2 TO 4 08/30/2024 N/A Encounters Encounter Location Date Provider Diagnosis [facility] [address] [place] [id number] 08/30/2024 Jose Baker Atherosclerosis of [place] artery of both lower extremities, with unspecified presence of clinical manifestation I70.203 ; Tinea unguium B35.1 ; Pain in right toe(s) M79.674 ; Pain in left toe(s) M79.675 and Abscess of toe, right L02.611 Assessments Encounter Date Diagnosis (ICD Code) Assessment Notes Treatment Notes Treatment Clinical Notes Section Notes 08/30/2024 Atherosclerosis of [place] artery of both lower extremities, with unspecified presence of clinical manifestation (ICD-10 - I70.203) Q7(A), Q8(2B), Q9(1B,2C) 08/30/2024 Tinea unguium (ICD-10 - B35.1) 08/30/2024 Pain in right toe(s) (ICD-10 - M79.674) 08/30/2024 Pain in left toe(s) (ICD-10 - M79.675) 08/30/2024 Abscess of toe, right (ICD-10 - L02.611) Patient Educated with: WOUND CARE INSTRUCTIONS. pdf (WOUND CARE INSTRUCTIONS. pdf) 08/30/2024 Other Plan Of Treatment Treatment Notes Assessment Notes Abscess of toe, right Patient Educated w ith: WOUND CARE INSTRUCTIONS.pdf (WOUND CARE INSTRUCTIONS.pdf) Pending Test Test Name Order Date [id number] NAIL, 6 OR MORE 08/30/2024 25643 I&D ABSCESS- SIMPLE,SINGLE 025 47617-BFGO SKIN LESIONS, 2 TO 4 08/31/19 25 Next Appt Details Follow Up: prn, Reason: Procedure Notes * Category Sub-Category Detail Notes Debride Nail 6-10 Nail debridement Due to the cl inical pathology outlined in the exam findings, performance of this nail treatment is medically necessary as its management by an unskilled/untrained nonprofessional would put this patients foot and overall health at risk. Therefore, debridement to affected nail(s), as described in exam ( T1, T4 , T5, T6, T7, T8, T9 ), was performed exclusively by the physician of record to reduce/remove overall nail length, girth, thickness, subungual debris, and necrotic tissue, by manual and/or electrical means through the use of a nail nipper and/or dremel-type head grinder, to a more viable healthy nail plate or bed tissue 6-10 nails in total. Silver nitrate was used for any petechial bleeding as necessary. Definitive antifungal treatment options, both pharmaceutical and surgical, have been reviewed and discussed with the patient. The patient solely prefers the use of intermittent/as needed professional debridement services for their nail condition and understands the need for additional periodic treatments to maintain effectiveness in symptomatic relief - 92000 I&D nail abscess Location T5, As per exam Procedure Performed incision a nd drainage of Subungual Abscess. Incised and Drained involved toenail with sterile nipper and curettaged infected devitalized tissue to healthy bleeding bed. Approximately 0.1cc purulent fluid material was drained. Any granuloma present was removed at this time. No underlying bone was visualized. There was minimal bleeding as hemostasis was achieved through the temporary use of either a digital tournaquet or the aforementioned local with epinephrine. Application of sterile Bacitracin dressing performed. Local wound care instructions discussed and dispensed. Recommended Tylenol or Motrin for pain/discomfort (38965), CIRCULATION: Pt was advised as to the risk of delayed or nonhealing due to circulation. Pt is to call the office with any questions, concerns, or complications Type Subungual abscess Anesthesia 3cc of 1 percent Lid ocaine Plain local anesthesic utilizing aseptic technique Keratoma Treatment Parring or Cutting o f Benign Hyperkeratotic Lesion(s) (-56) 2-4 Lesions - Due to the at risk nature of the patients medical condition as documented in the exam findings, performance of this keratoderma treatment is medically necessary as its management by an unskilled/untrained nonprofessional would put this patients foot and overall health at risk. Therefore, the benign hyperkeratotic lesions, ( 2 ) in total, locations as stated and described in the exam ( SUB MTH (s) , 1 , B/L ), were pared, and/or cut utilizing a sterile 15 blade, tissue nippers, and/or power dremel instrumentation by the physician of record - 15471, Q8 Progress Notes * CHELSEA RoseB:1950 ( 74 yo F)Acc No.[id number]:08/30/2024 Progress Note Patient:?Madison NAVARRO Provider:?Jose Baker DPM :1950???Age:74 Y???Sex:Female D ate:08/30/2024 Address:[address] [place], [place] [id number] Pcp:Darwin Hopper Subjective: * Chief Complaints: * ???At Risk FootcarePainful N ail(s) aggravated by shoes and causing difficulty standing/walking.Possible Infection * HPI: ???At Risk footcare:?Pt States Last PCP Visit:?Date?05/17/2024 * ROS:?General/Constitutional:?Nausea?denies.?Vomiting?denies.?Hunger Thirst?denies.?Loss appetite?denies.?Chills?denies.?Fatigue?denies.?Fever?denies.?Night Sweats?denies.?Unexplained weight loss?denies.?Unexplained [...] * Surgical History:?tonsillect patricia and adenoidectomy 1959appendectomy 1999Gall bladder removal 2000trigger finger release knee surgery, right 2016 * Hospitalization/Major Diagno stic Procedure:?Denies Past Hospitalization * Family History:?Mother: dece ased, foot problems, diagnosed with Diabetic - NIDDM, Family history of arthritis.?Father: .? * Social History:?Tobacco Use:?Tobacco Use/Smoking?Are you a:?nonsmoker ?Tobacco use other than smoking?Are you an other tobacco user??No ???Miscellaneous:?Caffeine: no. ?Children: no. ?Home smoke detector use: no. ?Marital status: . ?Occupation: Retired, [employer] * Medications:?TakingXanax , N otes to Pharmacist: prnCymbalta ALPRAZolam 0.5 MG Tablet 1 tablet Orally Twice a day Vitamin D Cequa 0.09 % Solution 1 drop into affected eye Ophthalmic every 12 hrs Bell 3 Simvastatin 5 MG Tablet 1 tablet in the evening Orally Once a day Probiotic Vitamin B6 Calcium Magnesium Multivitamin Omeprazole 20 MG Capsule Delayed Release 1 capsule 30 minutes before morning meal Orally Once a day Ammonium Lactate 12 % Cream 1 application Externally to feet except for between the toes Twice a day Triamcinolone Acetonide 0.1 % Cream External Taking Xanax , Notes to Pharmacist: prnTaking Cymbalta Taking ALPRAZolam 0.5 MG Tablet 1 tablet Orally Twice a day Taking Vitamin D Taking Cequa 0.09 % Solution 1 drop into affected eye Ophthalmic every 12 hrs Taking Bell 3 Taking Simvastatin 5 MG Tablet 1 tablet in the evening Orally Once a day Taking Probiotic Taking Vitamin B6 Taking Calcium Magnesium Taking Multivitamin Taking Omeprazole 20 MG Capsule Delayed Release 1 capsule 30 minutes before morning meal Orally Once a day Taking Ammonium Lactate 12 % Cream 1 application Externally to feet except for between the toes Twice a day Taking Triamcinolone Acetonide 0.1 % Cream External Not-Taking/PRNMetoprolol Succinate SEROquel 25 MG Tablet 1 tablet at bedtime Orally Once a day Asenapine Maleate 2.5 MG Tablet Sublingual 2 tablets under the tongue and allow to dissolve Sublingual Twice a day Lexapro 10 MG Tablet 1 tablet Orally Once a day Fluticasone Propionate traZODone HCl 100 MG Tablet 1 tablet at bedtime Orally Once a day Medication List reviewed and reconciled with the patientNot-Taking/PRN Metoprolol Succinate Not-Taking/PRN SEROquel 25 MG Tablet 1 tablet at bedtime Orally Once a day Not-Taking/PRN Asenapine Maleate 2.5 MG Tablet Sublingual 2 tablets under the tongue and allow to dissolve Sublingual Twice a day Not-Taking/PRN Lexapro 10 MG Tablet 1 tablet Orally Once a day Not-Taking/PRN Fluticasone Propionate Not-Taking/PRN traZODone HCl 100 MG Tablet 1 tablet at bedtime Orally Once a day Medication List reviewed and reconciled with the patient * Allergies:?Sulfa Antibiotics : rashCodeine: upset stomachyes[Allergies Verified] Objective: * Vitals:?Ht: 5ft, Wt:133, BMI :25.97, Shoe size: 6-6.5, BP:120/80mm Hg, Ht-cm: 152.4 cm, Wt-k.33 kg. * Examination: ???Vascular: ?DP PULSES (B):? 0/4, B/L.?PT PULSES (B):?1/4, B/L.?CAPILLARY FILL TIME:? delayed, all digits, B/L.?TROPHIC CONDITION-TEXTURE/ELASTICITY/TURGOR/HAIR GROWTH (B):? decreased,?with sparse to absent hair growth, B/L.?TEMPERTURE GRADIENT (C):? decreased, cool to cool, proximal to distal, B/L.?PIGMENTATION:?mottled, rubrous, B/L.?EDEMA (C):?absent, B/L.?CLAUDICATION (C):?denies, B/L.?REST PAIN:?denies, B/L.?Nails: ?NAILS are:?Elongated, overgrown, dystrophic, lytic, greater than 3mm thick, discolored and friable with crumbly malodorous subungual debris, with pain on palpation, T1, T4 , T5, T6, T7, T8, T9, all other nails not described with characteristics as possessing mycosis are elongated, overgrown, and dystrophic.?Dermatologic: ?SKIN FINDINGS:?Skin exam reveals Keratotic lesion(s) located at , SUB MTH (s) , 1 , B/L.?Abscess/infected nail: ?INSPECTION?Reveals Subungual Abscess with nail fluctuance, mild localized erythema, and yellow purulent fluid with pre-operative size approximately ( 1-2 ) mm square, but without exposed bone, T5.? Assessment: * Assessment: 1.?Tinea unguium - B35.1???2 .?Atherosclerosis of [place] artery of both lower extremities, with unspecified presence of clinical manifestation - I70.203 (Primary)???Specify :Q8???Notes :Q7(A), Q8(2B), Q9(1B,2C)???3.?Pain in right toe(s) - M79.674???4.?Pain in left toe(s) - M79.675???5.?Abscess of toe, right - L02.611??? Plan: * Treatment: 2.?Tinea unguium?Procedure: 85885-SPERFLO NAIL, 6 OR MORE 3.?Abscess of toe, right?Procedure: 88350 I&D ABSCESS- SIMPLE,SINGLE Notes: Patient Educated with: WOUND CARE INSTRUCTIONS.pdf (WOUND CARE INSTRUCTIONS.pdf)?? * Procedures:?Debride Nail 6-10:?Nail debridement?Due to the clinical pathology outlined in the exam findings, performance of this nail treatment is medically necessary as its management by an unskilled/untrained nonprofessional would put this patients foot and overall health at risk. Therefore, debridement to affected nail(s), as described in exam (?T1,?T4?,?T5, T6, T7, T8, T9?), was performed exclusively by the physician of record to reduce/remove overall nail length, girth, thickness, subungual debris, and necrotic tissue, by manual and/or electrical means through the use of a nail nipper and/or dremel-type head grinder, to a more viable healthy nail plate or bed tissue 6- 10 nails in total. Silver nitrate was used for any petechial bleeding as necessary. Definitive antifungal treatment options, both pharmaceutical and surgical, have been reviewed and discussed with the patient. The patient solely prefers the use of intermittent/as needed professional debridement services for their nail condition and understands the need for additional periodic treatments to maintain effectiveness in symptomatic relief - 88746.?I&D nail abscess:?Type?Subungual abscess.?Anesthesia?3cc of 1 percent Lidocaine Plain local anesthesic utilizing aseptic technique.?Location?T5, As per exam.?Procedure?Performed incision and drainage of Subungual Abscess. Incised and Drained involved toenail with sterile nipper and curettaged infected devitalized tissue to healthy bleeding bed. Approximately 0.1cc purulent fluid material was drained. Any granuloma present was removed at this time. No underlying bone was visualized. There was minimal bleeding as hemostasis was achieved through the temporary use of either a digital tournaquet or the aforementioned local with epinephrine. Application of sterile Bacitracin dressing performed. Local wound care instructions discussed and dispensed. Recommended Tylenol or Motrin for pain/discomfort (14154), CIRCULATION: Pt was advised as to the risk of delayed or nonhealing due to circulation. Pt is to call the office with any questions, concerns, or complications.?Keratoma Treatment:?Parring or Cutting of Benign Hyperkeratotic Lesion(s)?(-56) 2-4 Lesions - Due to the at risk nature of the patients medical condition as documented in the exam findings, performance of this keratoderma treatment is medically necessary as its management by an unskilled/untrained nonprofessional would put this patients foot and overall health at risk. Therefore, the benign hyperkeratotic lesions, ( 2 ) in total, locations as stated and described in the exam (?SUB MTH (s)?,?1?,?B/L?), were pared, and/or cut utilizing a sterile 15 blade, tissue nippers, and/or power dremel instrumentation by the physician of record - 73688, Q8.? * Procedure Codes:?56969 DEBRI DE NAIL, 6 OR MORE, Modifiers: XS 29391 DRAINAGE OF SKIN ABSCESS, Modifiers: XS , [id number] TRIM SKIN LESIONS, 2 TO 4, Modifiers: XS , Q8 * Follow Up:?prn * Images: * Sign off status: Completed true * Provider:?Jose Baker DPM Date:?2024 Generated for Miranda mariee/Tony/Rodrigo on:?08/30/2024 03:59 PM EST History and Physical Notes * HPI (History of Present Illness) Category Sub-Category Detail Notes Category Not es At Risk footcare Pt States Last PCP Visit: Date: 4 Examination Category Sub-Category Detail Notes Category Not es Dermatologic SKIN FINDINGS: Skin exam reveal s Keratotic lesion(s) located at , SUB MTH (s) , 1 , B/L Vascular DP PULSES (B): 0/4, B/L PT PULSES (B): 1/4, B/L CAPILLARY FILL TIME: delayed, all digits , B/L TEMPERTURE GRADIENT (C): decreased, cool to cool, proximal to distal, B/L TROPHIC CONDITION-TEXTURE/ELASTICITY/TURGOR/HAIR GROWTH (B): decreased, with sparse to absent hair gr owth, B/L EDEMA (C): absent, B/L CLAUDICATION (C): denies, B/L REST PAIN: denies, B/L PIGMENTATION: mottled, rubrous, B/ L Nails NAILS are: Elongated, overg rown, dystrophic, lytic, greater than 3mm thick, discolored and friable with crumbly malodorous subungual debris, with pain on palpation, T1, T4 , T5, T6, T7, T8, T9, all other nails not described with characteristics as possessing mycosis are elongated, overgrown, and dystrophic Abscess/infected nail INSPECTION Reveals Clayton bungual Abscess with nail fluctuance, mild localized erythema, and yellow purulent fluid with pre-operative size approximately ( 1-2 ) mm square, but without exposed bone, T5
--- OUTSIDE RECORDS SUMMARY | 2024-08-30 15:59 | XMS_ITS ---
Author Organization [facility] Address [address] [facility] [address] [place] [address] Care Team Providers Care Snuff Grinder Name Role Phone CARROLL SHANNON M.D. Primary Care Provider Analilia Manning Unavailable [phone] REASON FOR VISIT ULTRA - CHECK OVARIES Encounters Encounter Location Date Provider Diagnosis [facility] [address] [place] [address] [address] [place] [address] 04/08/2023 Analilia Galvan Plan Of Treatment Next Appt Details Provider Name:Analilia granda, 07/05/2025 03:00:00 PM, [address] [facility], [address], [place], [address], Progress Notes * VIPIN TRANB:1950 ( 74 yo F)Acc No.[id number]:04/08/2023 PROGRESS NOTES Patient:?HOLLY TRANA Appointment Provider:?Analilia granda M.D. :1950???Age:72 Y???Sex:Female D ate:04/08/2023 Address:[address] [place] [address] , [id number] Pcp:CARROLL SHANNON M.D. Subjective: * Chief Complaints: * ???1. ULTRA - CHECK OVARIES. * Medical History:? Objective: * Vitals:? Assessment: Plan: * Treatment: * Images: Billing Information: * Visit Code:? * Procedure Codes:? * Electronic signature of Jared Galvan MD on 08/30/2024 at 03:59 PM EST Sign off status: Pending * Appointment Provider:?Analilia Galvan M.D. Date:?04/08/2023 Generated for Miranda mariee/Tony/Rodrigo on:?08/30/2024 03:59 PM EST
--- OUTSIDE RECORDS SUMMARY | 2024-08-30 15:59 | XMS_ITS ---
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+ Medications Medication SIG (Take, Route, Frequency, Duration) Notes Start Date End Date Status Vitamin B-6 50 MG TAKE 1 TABLET BY CATARINA TH EVERY DAY Oral for 90 Active Cequa 0.09 % INSTILL 1 DROP INTO AFFECTED EYE 2 TIMES A DAY Ophthalmic for 30 Active Asenapine 3.8 MG/24HR 1 patch to skin Tr ansdermal Once a day for 30 day(s) 06/23/2023 Active Alendronate Sodium 70 MG 1 tablet 30 min utes before the first food, beverage or medicine of the day with plain water Orally for 30 day(s) 06/28/2024 Active hydrOXYzine HCl 10 MG TAKE 1 TABLET BY M OUTH TWICE A DAY NEEDED Oral for 15 Days Active Probiotic Orally Active Multi For Her 50+ Orally Ac tive PriLOSEC 20 MG 2 capsules Orally On ce a day Active Simvastatin 5 MG 1 tablet in the even ing Orally Once a day Active Vitamin D 2000 UNIT Orally Active Calcium 500 MG 1 tablet with meals Orally Twice a day for 30 day(s) Active Vitamin K 100 MCG 1 tablet Orally Once a day for 30 day(s) Active Bradley 3 1000 MG 1 capsule Orally Onc e a day for 30 day(s) Active Xanax 0.5 MG 1 tablet Orally Twice a day PRN Active Social History Tobacco Use: Social History Observation Description Date Details (start date - stop date) Never Smoker NA - NA AUDIT-C (Standard) Question Answer Notes Did you have a drink contain ing alcohol in the past year? Yes How often did you have six o r more drinks on one occasion in the past year? Never (0 point) How many drinks did you have on a typical day when you were drinking in the past year? 1 or 2 drinks (0 point) How often did you have a dri nk containing alcohol in the past year? 2 to 4 times a month (2 points) Points 2 Interpretation Negative Tobacco Control (Standard) Question Answer Notes Tobacco use: Nonsmoker Vital Signs Temperature 97.4 degrees Fahrenheit 06/28/19 25 Blood pressure systolic 108 mm Hg 06/28/19 25 Blood pressure diastolic 74 mm Hg 025 Height 60.8 in 06/28/2024 Weight 140 lbs 06/28/2024 BMI 26.62 kg/m2 06/28/2024 Encounters Encounter Location Date Provider Diagnosis [address] [address] 06/28/2024 Analilia Galvan Encounter for gynecological examination (general) (routine) without abnormal findings Z01.419 ; Encounter for screening mammogram for malignant neoplasm of breast Z12.31 ; Age-related osteoporosis without current pathological fracture M81.0 and Postmenopausal atrophic vaginitis N95.2 Assessments Encounter Date Diagnosis (ICD Code) Assessment Notes Treatment Notes Treatment Clinical Notes Section Notes 06/28/2024 Encounter for gynecological examination (general) (routine) without abnormal findings (ICD-10 - Z01.419) NO MORE PAP TESTS. 06/28/2024 Encounter for screening mammogram for malignant neoplasm of breast (ICD-10 - Z12.31) REGULAR MAMMOGRAMS AND SBE'S WERE RECOMMENDED. 06/28/2024 Age-related osteoporosis without current pathological fracture (ICD-10 - M81.0) DISCUSSED OSTEOPOROSIS AND ITS IMPACT ON HER HEALTH. ADEQUATE CALCIUM AND VIT D. WEIGHT BEARING EXERCISES. OSTEO PRECAUTIONS. CONTINUE FOSAMAX AND CARE WITH [facility]. 06/28/2024 Postmenopausal atrophic vaginitis (ICD-10 - N95.2) DISCUSSED FINDINGS, DX AND TX OPTIONS. PAT IS ASYMPTOMATIC. Plan Of Treatment Treatment Notes Assessment Notes Encounter for gynecological examination (general) (routine) without abnormal findings NO MORE PAP TESTS. Encounter for screening mamm ogram for malignant neoplasm of breast REGULAR MAMMOGRAMS AND SBE'S WERE RECOMMENDED. Age-related osteoporosis wit hout current pathological fracture DISCUSSED OSTEOPOROSIS AND ITS IMPACT ON HER HEALTH. ADEQUATE CALCIUM AND VIT D. WEIGHT BEARING EXERCISES. OSTEO PRECAUTIONS. CONTINUE FOSAMAX AND CARE WITH [facility]. Postmenopausal atrophic vaginitis DISCUSSED FINDINGS, DX AND TX OPTIONS. PAT IS ASYMPTOMATIC. Pending Test Test Name Order Date MAMMOGRAM, SCREENING 06/28/2024 MM Digital Mammo Screening 06/28/2024 Next Appt Details Follow Up: 1 Year, Reason: Provider Name:Analilia granda, 07/05/2025 03:00:00 PM, [address] [facility], [address], [place], [address], Progress Notes * VIPIN TRANB:1950 ( 74 yo F)Acc No.[id number]:06/28/2024 PROGRESS NOTES Patient:?KIKE TRAN Appointment Provider:?Analilia granda M.D. :1950???Age:74 Y???Sex:Female D ate:06/28/2024 Address:[address] [place], [place] [id number] Pcp:CARROLL SHANNON M.D. 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 PAT ENTERED MENOPAUSE IN HER 50'S.? SHE IS NOT SEXUALLY ACTIVE. HER LAST MAMMOGRAM DONE IN JUN 2023 SHOWED BREASTS ARE NOT DENSE AND WAS NORMAL.? SHE USED TO HAVE DENSE BREASTS ON MAMMOGRAM.? HER LIFETIME BREAST CA RISK IS 6.2%. HER LAST PAP TEST IN 2017 WAS NEGATIVE AND HPV NEGATIVE.? SHE HAS NO HX OF ABNORMAL PAP TESTS. SHE IS KNOWN TO BE OSTEOPOROTIC AND NOW SEES DR BLUM AT [facility].? SHE WAS ON FOSAMAX FROM 2016 TO 2019 AND THIS WAS RESTARTED IN 2023.? HER LAST BMD IN 2023 SHOWED THE LOWEST T-SCORE TO BE -2.6 AT THE FEMORAL NECK.? THIS WAS -2.3 IN 2020. SHE HAD A COLONOSCOPY DONE IN 2013. PFIZER X 5. ???Annual:? Patient presents for annual exam, ages 60-85, postmenopausal. 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 * Medical History:? 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 04/03/15 < 50% density, normal.?LMP and menses?Vane.? Control:?None.?Colonoscopy?yes 02/2014.?Bone Density:?07/18/23, 06/02/21, 04/23/19, 03/2017.? * OB History:?Total pregnancies?0.?Adopted?2.? * Surgical History:?Appendecto my Tonsillectomy & Adenoidectomy Cholecystectomy Colonoscopy Upper & Lower Eye Lid surgery Right Knee Torn Menisus Cataracts Surgery Peridontal Surgery 09/2021 * Hospitalization/Major Diagno stic Procedure:?See Surgical Hx * Family History:?Mother: dece ased.?Father: 89 yrs, Pneumonia.? Maternal Aunt: Stomach Cancer Paternal Aunt: Stomach Cancer Paternal Aunt: Ovarian Cancer. * Social History:?Tobacco Use:?Tobacco Control (Standard)?Tobacco use:?Nonsmoker ???Sexual History:?Sexual History?Had sex in the past 12 months (vaginal, oral, or anal)?: No.?Details of Sexual History?Are you sexually active??No ???Drugs/Alcohol:?Drugs?Have you used drugs other than those for medical reasons in the past 12 months??No ???Miscellaneous:?Children: yes, 2 Adopted. ?Domestic violence: no. ?Exercise: yes, walking. ?Home smoke detector use: yes. ?Living with: spouse. ?Marital status: . ?Natural support system: yes. ?Occupation: Retired. ?Sexual abuse: no. ?Sexually active: no, monogamous relationship. ?Verbal abuse: no. ???Drug/Alcohol:?AUDIT-C (Standard)?Did you have a drink containing alcohol in the past year??Yes ?How often did you have six or more drinks on one occasion in the past year??Never (0 point) ?How many drinks did you have on a typical day when you were drinking in the past year??1 or 2 drinks (0 point) ?How often did you have a drink containing alcohol in the past year??2 to 4 times a month (2 points) ?Points?2 ?Interpretation?Negative * Medications:?TakingCalcium 5 00 MG Tablet 1 tablet with meals Orally Twice a day Vitamin K 100 MCG Tablet 1 tablet Orally Once a day Bradley 3 1000 MG Capsule 1 capsule Orally Once a day Xanax 0.5 MG Tablet 1 tablet Orally Twice a day , Notes to Pharmacist: PRNVitamin D 2000 UNIT Tablet Orally Probiotic Capsule Orally Multi For Her 50+ Tablet Orally PriLOSEC 20 MG Capsule Delayed Release 2 capsules Orally Once a day Simvastatin 5 MG Tablet 1 tablet in the evening Orally Once a day Vitamin B- 6 50 MG Tablet TAKE 1 TABLET BY MOUTH EVERY DAY Oral Cequa 0.09 % Solution INSTILL 1 DROP INTO AFFECTED EYE 2 TIMES A DAY Ophthalmic Asenapine 3.8 MG/24HR Patch 24 Hour 1 patch to skin Transdermal Once a day Alendronate Sodium 70 MG Tablet 1 tablet 30 minutes before the first food, beverage or medicine of the day with plain water Orally hydrOXYzine HCl 10 MG Tablet TAKE 1 TABLET BY MOUTH TWICE A DAY NEEDED Oral Taking Calcium 500 MG Tablet 1 tablet with meals Orally Twice a day Taking Vitamin K 100 MCG Tablet 1 tablet Orally Once a day Taking Bradley 3 1000 MG Capsule 1 capsule Orally Once a day Taking Xanax 0.5 MG Tablet 1 tablet Orally Twice a day , Notes to Pharmacist: PRNTaking Vitamin D 2000 UNIT Tablet Orally Taking Probiotic Capsule Orally Taking Multi For Her 50+ Tablet Orally Taking PriLOSEC 20 MG Capsule Delayed Release 2 capsules Orally Once a day Taking Simvastatin 5 MG Tablet 1 tablet in the evening Orally Once a day Taking Vitamin B-6 50 MG Tablet TAKE 1 TABLET BY MOUTH EVERY DAY Oral Taking Cequa 0.09 % Solution INSTILL 1 DROP INTO AFFECTED EYE 2 TIMES A DAY Ophthalmic Taking Asenapine 3.8 MG/24HR Patch 24 Hour 1 patch to skin Transdermal Once a day Taking Alendronate Sodium 70 MG Tablet 1 tablet 30 minutes before the first food, beverage or medicine of the day with plain water Orally Taking hydrOXYzine HCl 10 MG Tablet TAKE 1 TABLET BY MOUTH TWICE A DAY NEEDED Oral DiscontinuedFlonase Allergy Relief 50 MCG/ACT Suspension 1 spray in each nostril Nasally Once a day Escitalopram Oxalate 20 MG Tablet 1 tablet Orally Once a day traZODone HCl 50 MG Tablet 1 tablet at bedtime as needed Orally Once a day , Notes to Pharmacist: PRNMedication List reviewed and reconciled with the patientDiscontinued Flonase Allergy Relief 50 MCG/ACT Suspension 1 spray in each nostril Nasally Once a day Discontinued Escitalopram Oxalate 20 MG Tablet 1 tablet Orally Once a day Discontinued traZODone HCl 50 MG Tablet 1 tablet at bedtime as needed Orally Once a day , Notes to Pharmacist: PRNMedication List reviewed and reconciled with the patient * Allergies:?Vagifem: Skin Sigifredo h - AllergyMotrin: Nausea/Vomiting/Diarrhea - AllergyLamictal: Skin Rash - AllergyPremarin: Skin Rash - AllergyPenicillin: Nausea/Vomiting - AllergyCodeine: Nausea/Vomiting - Allergyno[Allergies Verified] Objective: * Vitals:?Ht: 60.8 in, Wt: 140 lbs, BMI:26.62Index, BP: 108/74 mm Hg, Temp: 97.4 F. * Examination: ???General Exam: ?CONSTITUTIONAL:?General Appearance:?alert, in no acute distress, normal, well nourished ?NECK/THYROID:?Inspection/Palpation:?normal ?Thyroid:?normal size and shape ?RESPIRATORY:?Auscultation: clear to auscultation bilaterally, Respiratory Effort: normal.?CARDIOVASCULAR:?Auscultation: regular rate and rhythm.?BREAST, Right:?Inspection/Palpation:?no discharge, no masses present, no nipple retraction, no skin changes, no skin dimpling, no tenderness, no lymphadenopathy, no axillary mass, no axillary tenderness ?BREAST, Left:?Inspection/Palpation:?no discharge, no masses present, no nipple retraction, no skin changes, no skin dimpling, no tenderness, no lymphadenopathy, no axillary mass, no axillary tenderness ?GASTROINTESTINAL:?Abdomen:?no masses, nontender, nondistended ?Liver and Spleen:?normal ?Hernias:?no hernias present, no inguinal adenopathy ?MUSCULOSKELETAL:?Inspection/Palpation:?no clubbing, cyanosis, or edema ?SKIN:?Skin:?normal ?NEURO/PSYCH:?Orientation:?time , place, person ?Mood/Affect:?normal?Genitourinary: ?EXTERNAL GENITALIA:?External Genitalia:?normal, no lesions ?VAGINA:?Vagina:?atrophic vaginal tissue, minimal moisture ?BLADDER:?Bladder:?no mass, nontender ?URETHRA:?Urethra:?no erythema or lesions present ?CERVIX:?Cervix:?no lesions, nontender ?UTERUS:?Uterus:?nontender, normal contour, normal mobility, normal size ?ADNEXA:?Adnexa:?no masses, no tenderness ?ANUS AND PERINEUM:?Anus/Perineum:?visually normal??? Assessment: * Assessment: 1.?Encounter for gynecologic al examination (general) (routine) without abnormal findings - Z01.419???2.?Encounter for screening mammogram for malignant neoplasm of breast - Z12.31???3.?Age-related osteoporosis without current pathological fracture - M81.0???4.?Postmenopausal atrophic vaginitis - N95.2??? Plan: * Treatment: 2.?Encounter for screening m ammogram for malignant neoplasm of breast?Imaging: MM Digital Mammo Screening Notes: REGULAR MAMMOGRAMS AND SBE'S WERE RECOMMENDED.?? 3.?Age-related osteoporosis without current pathological fracture? Notes: DISCUSSED OSTEOPOROSIS AND ITS IMPACT ON HER HEALTH. ADEQUATE CALCIUM AND VIT D. WEIGHT BEARING EXERCISES. OSTEO PRECAUTIONS. CONTINUE FOSAMAX AND CARE WITH [facility].?? 4.?Postmenopausal atrophic v aginitis? Notes: DISCUSSED FINDINGS, DX AND TX OPTIONS. PAT IS ASYMPTOMATIC.?? * Imaging:? * ?Imaging: MAMMOGRAM, SCR EENING * Procedure Codes:? * Preventive Medicine:? ??YOUR PREVENTIVE WELLNESS PLAN:?Osteoporosis prevention?Calcium, D, strength training.?Breast Cancer Screening (Mammogram):?annually.?Cervical Cancer Screening (Pap Smear):?q 3 years with HPV screen.?Colorectal Cancer Screening:?q 10 years.? * Follow Up:?1 Year * Images: Billing Information: * Visit Code:? 19168 Preventive Care Est Pt. Age 65 and over. * Procedure Codes:? * Sign off status: Completed true * Appointment Provider:?Analilia Galvan M.D. Date:?06/28/2024 Generated for Miranda mariee/Tony/eTjean-pierresmitting on:?08/30/2024 03:58 PM EST History and Physical Notes * HPI (History of Present Illness) Category Sub-Category Detail Notes Category Not es New/Follow-up Patient Consult PAT ENTERED MENOPAUSE IN HER 50'S. SHE IS NOT SEXUALLY ACTIVE. HER LAST MAMMOGRAM DONE IN JUN 2023 SHOWED BREASTS ARE NOT DENSE AND WAS NORMAL. SHE USED TO HAVE DENSE BREASTS ON MAMMOGRAM. HER LIFETIME BREAST CA RISK IS 6.2%. HER LAST PAP TEST IN 2017 WAS NEGATIVE AND HPV NEGATIVE. SHE HAS NO HX OF ABNORMAL PAP TESTS. SHE IS KNOWN TO BE OSTEOPOROTIC AND NOW SEES DR BLUM AT [facility]. SHE WAS ON FOSAMAX FROM 2016 TO 2019 AND THIS WAS RESTARTED IN 2023. HER LAST BMD IN 2023 SHOWED THE LOWEST T-SCORE TO BE -2.6 AT THE FEMORAL NECK. THIS WAS -2.3 IN 2020. SHE HAD A COLONOSCOPY DONE IN 2013. PFIZER X 5. 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 Examination Category Sub-Category Detail Notes Category Not es General Exam CONSTITUTIONAL: General Appearan ce:: alert, in no acute distress, normal, well nourished NECK/THYROID: Thyroid:: normal size and shape Inspection/Palpation:: normal RESPIRATORY: Auscultation: clear to auscultation bilaterally, Respiratory Effort: normal CARDIOVASCULAR: Auscultation: regula r rate and rhythm GASTROINTESTINAL: Hernias:: no hernias present, no inguinal adenopathy Liver and Spleen:: normal Abdomen:: no masses, nontender, nondiste nded MUSCULOSKELETAL: Inspection/Palpation:: no clubb ing, cyanosis, or edema SKIN: Skin:: normal NEURO/PSYCH: Mood/Affect:: normal Orientation:: time , place, person BREAST, Right: Inspection/Palpation :: no discharge, no masses present, no nipple retraction, no skin changes, no skin dimpling, no tenderness, no lymphadenopathy, no axillary mass, no axillary tenderness BREAST, Left: Inspection/Palpation :: no discharge, no masses present, no nipple retraction, no skin changes, no skin dimpling, no tenderness, no lymphadenopathy, no axillary mass, no axillary tenderness Genitourinary EXTERNAL GENITALIA: External Genitalia:: nor mal, no lesions VAGINA: Vagina:: atrophic vaginal tissue , minimal moisture BLADDER: Bladder:: no mass, nontender URETHRA: Urethra:: no erythema or lesions present CERVIX: Cervix:: no lesions, nontender UTERUS: Uterus:: nontender, normal conto ur, normal mobility, normal size ADNEXA: Adnexa:: no masses, no tendernes s ANUS AND PERINEUM: Anus/Perineum:: visually norm al
--- OUTSIDE RECORDS SUMMARY | 2024-08-30 16:00 | XMS_ITS | Patient Health Record ---
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 Name Role Phone Darwin Hopper Primary Care Provider Unavailagustin e Jose Baker Unavailable [phone] Allergies Allergen (clinical drug ingredient) Drug/Non Drug [...] tablet Orally Twic e a day Active Triamcinolone Acetonide 0.1 % External for 30 Days Active Cymbalta Active Ammonium Lactate 12 % 1 application Externally to feet except for between the toes Twice a day for 30 days Active Xanax prn Active Omeprazole 20 MG 1 capsule 30 minutes before morning meal Orally Once a day for 30 day(s) Active Multivitamin Active Calcium Magnesium Ac tive traZODone HCl 100 MG 1 tablet at bedtime Orally Once a day for 30 day(s) Not-Taking Vitamin B6 Active Probiotic Active Fluticasone Propionate Not-Taking Simvastatin 5 MG 1 tablet in the even ing Orally Once a day Active Lexapro 10 MG 1 tablet Orally Once a day for 30 day(s) Not-Taking Hague 3 Active Asenapine Maleate 2.5 MG 2 tablets under the tongue and allow to dissolve Sublingual Twice a day for 30 day(s) Not-Taking Cequa 0.09 % 1 drop into affected eye Ophthalmic every 12 hrs Active SEROquel 25 MG 1 tablet at bedtime Orally Once a day Not-Taking Vitamin D Active Metoprolol Succinate Not-Taking Social History Tobacco Use: Social History Observation [...] W/U Status Risk Notes Problem Atherosclerosis of cherokee arteries of the extremities ([id number]) Atherosclerosis of cherokee artery of both lower extremities, with unspecified presence of clinical manifestation (I70.203) Active confirmed Q7(A), Q8(2B), Q9(1B,2 C) Vital Signs Blood pressure diastolic 80 mm Hg 08/30/2024 Height 5ft in 08/30/2024 Blood pressure systolic 120 mm Hg 08/30/2024 Weight 133 lbs 08/30/2024 BMI 25.97 kg/m2 08/30/2024 Procedures Procedure Date Ordered Date Performed Result Body Sit e 55797-ISMUFZG NAIL, 6 OR MORE 12/07/2023 N/A 84659-CHZP SKIN LESIONS, 2 TO 4 12/07/2023 N/A 59365-VIRBJJT NAIL, 6 OR MORE 03/08/2024 N/A 71371-Lzbbmjts Plate 03/08/2024 N/A 36928-VOCQ SKIN LESIONS, 2 TO 4 03/08/2024 N/A 89997-PVPKDTK NAIL, 6 OR MORE 06/04/2024 N/A 67773-MREE SKIN LESIONS, 2 TO 4 06/04/2024 N/A 20738-PLWFTCK NAIL, 6 OR MORE 08/30/2024 N/A 03469 I&D ABSCESS- SIMPLE,SINGLE 08/30/2024 N/A 00827-YPZN SKIN LESIONS, 2 TO 4 08/30/2024 N/A Encounters Encounter Location Date Provider Diagnosis [facility] [address] [address] 12/07/2023 Jose Baker Atherosclerosis of cherokee artery of both lower extremities, with unspecified presence of clinical manifestation I70.203 ; Tinea unguium B35.1 ; Pain in right toe(s) M79.674 ; Pain in left toe(s) M79.675 ; Pain in left foot M79.672 ; Pain in left ankle and joints of left foot M25.572 ; Bursitis of left foot M77.52 and Hallux valgus (acquired), left foot M20.[address] [address] 03/08/2024 Jose Baker Atherosclerosis of cherokee artery of both lower extremities, with unspecified presence of clinical manifestation I70.203 ; Tinea unguium B35.1 ; Pain in right toe(s) M79.674 ; Pain in left toe(s) M79.675 ; Ingrown nail L60.0 and Xerosis of skin L85.[address] [address] 06/04/2024 Jose Baker Atherosclerosis of cherokee artery of both lower extremities, with unspecified presence of clinical manifestation I70.203 ; Tinea unguium B35.1 ; Pain in right toe(s) M79.674 ; Pain in left toe(s) M79.675 and Xerosis of skin L85.[address] [address] 08/30/2024 Jose Baker Atherosclerosis of cherokee artery of both lower extremities, with unspecified presence of clinical manifestation I70.203 ; Tinea unguium B35.1 ; Pain in right toe(s) M79.674 ; Pain in left toe(s) M79.675 and Abscess of toe, right L02.[address] [address] 09/13/2023 Jose Baker [address] [address] 08/27/2024 Jose Baker Assessments Encounter Date Diagnosis (ICD Code) Assessment Notes Treatment Notes Treatment Clinical Notes Section Notes 12/07/2023 Atherosclerosis of cherokee artery of both lower extremities, with unspecified presence of clinical manifestation (ICD-10 - I70.203) 03/08/2024 Tinea unguium (ICD-10 - B35.1) 03/08/2024 Atherosclerosis of cherokee artery of both lower extremities, with unspecified presence of clinical manifestation (ICD-10 - I70.203) 06/04/2024 Tinea unguium (ICD-10 - B35.1) 06/04/2024 Atherosclerosis of cherokee artery of both lower extremities, with unspecified presence of clinical manifestation (ICD-10 - I70.203) 08/30/2024 Tinea unguium (ICD-10 - B35.1) 08/30/2024 Atherosclerosis of cherokee artery of both lower extremities, with unspecified presence of clinical manifestation (ICD-10 - I70.203) Q7(A), Q8(2B), Q9(1B,2C) 08/30/2024 Pain in right toe(s) (ICD-10 - M79.674) 06/04/2024 Pain in right toe(s) (ICD-10 - M79.674) 03/08/2024 Pain in right toe(s) (ICD-10 - M79.674) 12/07/2023 Tinea unguium (ICD-10 - B35.1) 12/07/2023 Pain in right toe(s) (ICD-10 - M79.674) 03/08/2024 Pain in left toe(s) (ICD-10 - M79.675) 06/04/2024 Pain in left toe(s) (ICD-10 - M79.675) 08/30/2024 Pain in left toe(s) (ICD-10 - M79.675) 06/04/2024 Xerosis of skin (ICD-10 - L85.3) 03/08/2024 Ingrown nail (ICD-10 - L60.0) 12/07/2023 Pain in left toe(s) (ICD-10 - M79.675) 08/30/2024 Abscess of toe, right (ICD-10 - L02.611) Patient Educated with: WOUND CARE INSTRUCTIONS. pdf (WOUND CARE INSTRUCTIONS. pdf) 12/07/2023 Pain in left ankle and joints of left foot (ICD-10 - M25.572) 12/07/2023 Pain in left foot (ICD-10 - M79.672) 03/08/2024 Xerosis of skin (ICD-10 - L85.3) 12/07/2023 Bursitis of left foot (ICD-10 - M77.52) 12/07/2023 Hallux valgus (acquired), left foot (ICD-10 - M20.12) 08/30/2024 Other Plan Of Treatment Pending Test Test Name Order Date 41366-TFDSZQB NAIL, 6 OR MORE 12/07/2023 25734-YAZVJKS NAIL, 6 OR MORE 03/08/2024 77701-VAPESQI NAIL, 6 OR MORE 06/04/2024 19705-ZZJRSII NAIL, 6 OR MORE 08/30/2024 77467-Nouwwfcx Plate 03/08/2024 59872 I&D ABSCESS- SIMPLE,SINGLE 025 60159-URDW SKIN LESIONS, 2 TO 4 03/08/20 24 02194-ETKL SKIN LESIONS, 2 TO 4 12/07/19 24 61549-XACD SKIN LESIONS, 2 TO 4 08/31/19 25 37670-MMGN SKIN LESIONS, 2 TO 4 06/04/20 24 Insurance Providers Payer Name Payer Address Payer Phone Subscriber Number Group Number Insured Name Patient Relationship to Insured Coverage Start Date Coverage End Date Medicare National [employer] [address] [place] [address] [id number] Madison Navarro Self - patient is the insured [employer] [facility] [address] [place] [address] [phone] [id number] Madison Navarro Self - patient is the insured Medical (General) History Medical History History ICD Code abdominal pain Sjogren syndrome Low back pain Acute Sinusitis Osteoporosis Elevated LFTs Headaches/Migraines Hypercholesterolemia Nephrolithiasis epigastric Anxiety Depression Reflux ( GERD) Allergic rhinitis Constipation Tinnitus Hepatitis Measles Mumps Chicken pox Arthritis Hypertension Surgical History Surgery Date(Month/Year) tonsillectomy and adenoidectomy 195 appendectomy 1998 Gall bladder removal 1999 trigger finger release knee surgery, right 2016
--- OUTSIDE RECORDS SUMMARY | 2024-08-30 16:00 | XMS_ITS ---
Author Organization [facility] Address [address] [place] [address] Care Team Providers Care Skate Boarder Name Role Phone Darwin Hopper MD Primary Care Provider Zoltan Grant Jr REASON FOR VISIT IBS,gerd Encounters Encounter Location Date Provider Diagnosis [facility] [address] [place] [address] 07/12/2024 Zoltan Vazquez Jr Plan Of Treatment Next Appt Details Provider Name:Zoltan turner Jr, 10/22/2024 01:35:00 PM, [address], [address], [place], [address], Progress Notes * KIKE TRANDOB:1950 (74 yo F)Acc No.[id number]:07/12/2024 Progress Notes Patient:?KIKE TRAN Provider:?Zoltan Vazquez MD :1950???Age:74 Y???Sex:Female D ate:07/12/2024 Address:[address] [place] [address] [address] [facility] Pcp:Darwin Hopper MD Subjective: * Chief Complaints: * ???1. IBS,gerd. * Medical History:? Objective: * Vitals:? Assessment: Plan: * Treatment: * * The named appointment provid er may or may not be the originator of this progress note, and it is not deemed complete until electronically signed by the appointment provider. Sign off status: Pending * Provider:?Zoltan Vazquez MD Date:?0 07/12/2024 Generated for Miranda mariee/Tony/Rodrigo on:?08/30/2024 04:00 PM EST
--- OUTSIDE RECORDS SUMMARY | 2024-08-30 16:00 | XMS_ITS | Clinical Summary ---
Author Organization [facility] Address [address] [place] [address] Care Team Providers Care Contract Technician Name Role Phone Darwin Hopper MD Primary Care Provider [phone] Allergies Active Allergy Reactions Criticality Noted Date Comments Ibuprofen Lamotrigine 12/25/2019 Penicillins Sulfa Antibiotics 12/25/2019 Medications Medication Sig Dispensed Refills Start Date End Date Status omeprazole (PriLOSEC) 20 MG capsule 0 10/12/2019 Active traZODone (DESYREL) 100 MG tablet 0 12/15/2017 Active DULoxetine (CYMBALTA) DR capsule 30 mg TAKE 3 CAPSULES DAILY IN THE AM 0 12/01/2017 Active vitamin B-6 (PYRIDOXINE) 50 MG tablet TAKE 1 TABLET ONCE A DAY ORALLY 90 DAYS ONCE A DAY ORAL 90 DAYS 0 10/02/2019 Active alendronate (FOSAMAX) tablet 70 mg TAKE 1 TABLET WEEKLY ORALLY 90 DAYS 0 11/08/2017 Active simvastatin (ZOCOR) tablet 5 mg Take 5 mg by mouth every evening. 0 12/14/2019 Active celecoxib (CeleBREX) 200 MG capsule TAKE 1 CAPSULE BY MOUTH ONCE A DAY WITH FOOD 0 01/09/2020 Active clonazePAM (KLONOPIN PO) Klonopin 0 Active Mupirocin (BACTROBAN EX) Bactroban 0 Active Raloxifene HCl (EVISTA PO) Evista 0 Active busPIRone (BUSPAR) 15 MG tablet 0 09/09/2020 Active dicyclomine (BENTYL) 10 MG capsule 0 08/18/2020 Active escitalopram (LEXAPRO) 20 MG tablet 0 04/17/2021 Active Cequa 0.09 % SOLN Place 1 drop into both eyes 2 (two) times a day. 0 07/16/2021 Active fluconazole (DIFLUCAN) 100 MG tablet Take 100 mg by mouth daily. 0 06/16/2021 Active fluconazole (DIFLUCAN) 150 MG tablet Take 150 mg by mouth daily. 0 06/11/2021 Active hydrOXYzine (ATARAX) 25 MG tablet Take 25 mg by mouth every 12 (twelve) hours as needed. 0 05/29/2021 Active LORazepam (Ativan) 0.5 MG tablet Take 0.5 mg by mouth. 0 07/30/2015 Active nystatin (MYCOSTATIN) 718936 units tablet Take by mouth. 0 07/30/2015 A ctive pilocarpine (SALAGEN) 5 MG tablet Take 5 mg by mouth. 0 08/24/2018 Acti ve Latuda 20 MG TABS tablet TAKE 1 TABLET (20 MG) BY MOUTH DAILY IN THE EVENING WITH FOOD 0 03/22/2022 Active Pyridoxine HCl (vitamin B-6) 100 MG tablet TAKE 1 TABLET BY MOUTH EVERY DAY FOR 90 DAYS 0 02/21/2022 Active Active Problems Problem Noted Date Diagnosed Date Acute medial meniscus tear of right knee 021 Social History Tobacco Use Types Packs/Day Years Used Date Smoking Tobacco: Never Assessed Sex and Gender Information Value Date Recorded Sex Assigned at Not on file Gender Identity Not on file Sexual Orientation Not on file Job Start Date Occupation Industry Not on file Not on file Not on file Last Filed Vital Signs Vital Sign Reading Time Taken Comments Blood Pressure - - Pulse - - Temperature - - Respiratory Rate - - Oxygen Saturation - - Inhaled Oxygen Concentration - - Weight 55.3 kg (122 lb) 12/25/2019 2:56 PM EDT Height 152.4 cm (5') 12/25/2019 2:56 PM EDT Body Mass Index 23.83 12/25/2019 2:56 PM EDT Plan of Treatment Health Maintenance Due Date Last Done Comments Hepatitis C Screening 1950 COVID-19 Vaccine (#1) 1950 Depression Screening 1961 Preventative Health Evaluation 1967 DTap / Tdap / Td (1 - Tdap) 1968 Colon Cancer Screening (Colonoscopy) 1994 Shingrix-Zoster Vaccine (1 of 2) 1999 Fall Risk Assessment 2014 Osteoporosis Screening (DEXA Scan) 2014 Pneumococcal Vaccine (1 of 1 - PCV) 2014 Influenza Vaccine (#1) 2024 RSV Adult > 60+ Yrs or Pregn ant (1 - 1-dose 75+ series) 2024 Hepatitis B Vaccines Aged Out No long er eligible based on patient's age to complete this topic RSV Ped < 20 months Aged Out No longe r eligible based on patient's age to complete this topic Care Teams Contract Technician Relationship Specialty Start Date End Date Po, Darwin Wasserman MD [address] [place] [address] [address] [facility] [place], [place] [id number] PCP - General Internal Medicine 08/13/19
--- OUTSIDE RECORDS SUMMARY | 2024-08-30 16:00 | XMS_ITS ---
[facility] Organization [facility] Address [address] [address] Care Team Providers Care Medical Assistant Cardiology Name Role Phone CARROLL SHANNON M.D. Primary Care Provider Analilia Manning Unavailable [phone] Allergies Allergen (clinical drug ingredient) Drug/Non Drug Allergy documented on EMR Reaction Allergy Type Onset Date Status lamotrigine Lamictal Skin Rash Drug Allergy Activ e Motrin Nausea/Vomiting/ Diarrhea Drug Allergy Active estrogens, conjugated ([facility]) Premarin Skin Rash Drug Allergy Active estradiol Vagifem Skin Rash Drug Allergy Active codeine Codeine Nausea/Vomiting Drug Allergy A ctive Penicillin Nausea/Vomiting Drug Allergy Active REASON FOR VISIT INTERVAL BREAST AND PELVIC Medications Medication SIG (Take, Route, Frequency, Duration) Notes Start Date End Date Status Cequa 0.09 % INSTILL 1 DROP INTO AFFECTED EYE 2 TIMES A DAY Ophthalmic for 30 Active Asenapine 3.8 MG/24HR 1 patch to skin Transdermal Once a day for 30 day(s) 06/23/2023 Active traZODone HCl 50 MG 1 tablet at bedtime as needed Orally Once a day PRN Active Vitamin B-6 50 MG TAKE 1 TABLET BY CATARINA TH EVERY DAY Oral for 90 Active PriLOSEC 20 MG 2 capsules Orally On ce a day Active Simvastatin 5 MG 1 tablet in the even ing Orally Once a day Active Multi For Her 50+ Orally Ac tive Flonase Allergy Relief 50 MCG/ACT 1 spray in each nostril Nasally Once a day for 30 day(s) Active Escitalopram Oxalate 20 MG 1 tablet Oral ly Once a day for 30 day(s) Active Xanax 0.5 MG 1 tablet Orally Twic e a day PRN Active Probiotic Orally Active Vitamin D 2000 UNIT Orally Active Neodesha 3 1000 MG 1 capsule Orally Onc e a day for 30 day(s) Active Calcium 500 MG 1 tablet with meals Orally Twice a day for 30 day(s) Active Vitamin K 100 MCG 1 tablet Orally Once a day for 30 day(s) Active Problems Problem Type SNOMED Code ICD Code Onset Dates Problem Status W/U Status Risk Notes Problem Gynecological examination abnormal ([id number]) Encounter for gynecological examination (general) (routine) with abnormal findings (Z01.411) Active confirmed Vital Signs Temperature 97.1 degrees Fahrenheit 06/23/20 23 Blood pressure systolic 118 mm Hg 06/23/20 23 Blood pressure diastolic 68 mm Hg 023 Height 60.8 in 06/23/2023 Weight 135 lbs 06/23/2023 BMI 25.67 kg/m2 06/23/2023 Encounters Encounter Location Date Provider Diagnosis [address] [address] 06/23/2023 Analilia Galvan Encounter for screening mammogram for malignant neoplasm of breast Z12.31 ; Encounter for gynecological examination (general) (routine) with abnormal findings Z01.411 ; Age-related osteoporosis without current pathological fracture M81.0 ; Postmenopausal atrophic vaginitis N95.2 and Inconclusive mammogram R92.2 Assessments Encounter Date Diagnosis (ICD Code) Assessment Notes Treatment Notes Treatment Clinical Notes Section Notes 06/23/2023 Encounter for screening mammogram for malignant neoplasm of breast (ICD-10 - Z12.31) REGULAR MAMMOGRAMS AND SBE'S WERE RECOMMENDED. 06/23/2023 Encounter for gynecological examination (general) (routine) with abnormal findings (ICD-10 - Z01.411) NO MORE PAP TESTS. 06/23/2023 Age-related osteoporosis without current pathological fracture (ICD-10 - M81.0) DISCUSSED OSTEOPOROSIS AND ITS IMPACT ON HER HEALTH. ADEQUATE CALCIUM AND VIT D. WEIGHT BEARING EXERCISES. OSTEO PRECAUTIONS. CONITNUE FOLLOW UP WITH DR HARRIS. REPEAT BMD IN 2023. 06/23/2023 Postmenopausal atrophic vaginitis (ICD-10 - N95.2) DISCUSSED FINDINGS, DX AND TX OPTIONS. PAT IS ASYMPTOMATIC. 06/23/2023 Inconclusive mammogram (ICD-10 - R92.2) DISCUSSED DENSE BREASTS ON MAMMOGRAM AND ITS IMPLICATIONS. 3D MAMMOGRAMS WERE RECOMMENDED. Plan Of Treatment Treatment Notes Assessment Notes Encounter for screening mamm ogram for malignant neoplasm of breast REGULAR MAMMOGRAMS AND SBE'S WERE RECOMMENDED. Encounter for gynecological examination (general) (routine) with abnormal findings NO MORE PAP TESTS. Age-related osteoporosis wit hout current pathological fracture DISCUSSED OSTEOPOROSIS AND ITS IMPACT ON HER HEALTH. ADEQUATE CALCIUM AND VIT D. WEIGHT BEARING EXERCISES. OSTEO PRECAUTIONS. CONITNUE FOLLOW UP WITH DR HARRIS. REPEAT BMD IN 2023. Postmenopausal atrophic vaginitis DISCUSSED FINDINGS, DX AND TX OPTIONS. PAT IS ASYMPTOMATIC. Inconclusive mammogram DISCUSSED DENSE BREASTS ON MAMMOGRAM AND ITS IMPLICATIONS. 3D MAMMOGRAMS WERE RECOMMENDED. Pending Test Test Name Order Date BONE DENSITY 06/23/2023 MM Digital Mammo Screening 06/23/2023 Next Appt Details Follow Up: 1 Year, Reason: Provider Name:Analilia granda, 07/05/2025 03:00:00 PM, [address], [address], [place], [address], Progress Notes * VIPIN TRANB:1950 ( 73 yo F)Acc No.[id number]:06/23/2023 PROGRESS NOTES Patient:?CHELSEA KIKE Appointment Provider:?Analilia granda M.D. :1950???Age:73 Y???Sex:Female D ate:06/23/2023 Address:[address] [place] [address] Pcp:CARROLL SHANNON M.D. Subjective: * Chief Complaints: * ???INTERVAL BREAST AND PELVI C * HPI: ???New/Follow-up Patient Consult:? PAT ENTERED MENOPAUSE IN HER 50'S. SHE IS NOT SEXUALLY ACTIVE. 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 HER LAST BMD IN 2020 SHOWED THE LOWEST T-SCORE TO BE -2.8 AT [facility]. FRAX=26.5%/8.5%. SHE WAS ON FOSAMAX FROM 2016 TO 2019. ?HER LAST MAMMOGRAM DONE IN JUN 2022 SHOWED DENSE BREASTS AND WAS NORMAL. HER LIFETIME BREAST CA RISK IS 6.2%. ?HER LAST PAP TEST IN 2017 WAS NEGATIVE AND HPV NEGATIVE. SHE HAS NO HX OF ABNORMAL PAP TESTS. ?SHE HAD A COLONOSCOPY DONE IN 2013. SHE WILL DISCUSS ANOTHER COLONOSCOPY WITH HER GI, DR PEDROZA. ?PFIZER X 5. * ROS:?general:?no?chest pain.?no?palpitations.?no?headache.?no?cough.?no?shortness of breath.?no?fever.?no?unexplained weight loss.?no?nausea/vomiting.?no?change in bowel movements.?no blood in stool.?no?genitourinary complaints.?no?skin complaints.? * Medical History:? 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 04/03/15 < 50% density, normal.?LMP and menses?[place].? Control:?None.?Colonoscopy?yes 02/2014.?Bone Density:?06/02/21, 04/23/19, 03/2017.? * OB History:?Total pregnancies?0.?Adopted?2.? * Surgical History:?Appendecto my Tonsillectomy & Adenoidectomy Cholecystectomy Colonoscopy Upper & Lower Eye Lid surgery Right Knee Torn Menisus Cataracts Surgery Peridontal Surgery 09/2021 * Hospitalization/Major Diagno stic Procedure:?See Surgical Hx * Family History:?Mother: dece ased.?Father: 89 yrs, Pneumonia.? Maternal Aunt: Stomach Cancer Paternal Aunt: Stomach Cancer Paternal Aunt: Ovarian Cancer. * Social History:?Tobacco Use:?Tobacco Use/Smoking?Are you a: nonsmoker.?Sexual History:?Sexual History?Had sex in the past 12 months (vaginal, oral, or anal)?: No.?Details of Sexual History?Are you sexually active??No ???Drugs/Alcohol:?Drugs?Have you used drugs other than those for medical reasons in the past 12 months??No ?Alcohol Screen (Audit-C)?Did you have a drink containing alcohol in the past year?: Yes, How often did you have a drink containing alcohol in the past year?: 2 to 4 times a month (2 points), How many drinks did you have on a typical day when you were drinking in the past year?: 1 or 2 drinks (0 point), Points: 2, Interpretation: Negative.?Miscellaneous:?Children: yes, 2 Adopted. ?no Domestic violence. ?Exercise: yes, walking. ?Home smoke detector use: yes. ?Living with: spouse. ?Marital status: . ?Natural support system: yes. ?Occupation: Retired. ?no Sexual abuse. ?no Sexually active, monogamous relationship. ?no Verbal abuse. * Medications:?TakingCalcium 5 00 MG Tablet 1 tablet with meals Orally Twice a dayVitamin K 100 MCG Tablet 1 tablet Orally Once a dayOmega 3 1000 MG Capsule 1 capsule Orally Once a dayXanax 0.5 MG Tablet 1 tablet Orally Twice a day, Notes: PRNFlonase Allergy Relief 50 MCG/ACT Suspension 1 spray in each nostril Nasally Once a dayEscitalopram Oxalate 20 MG Tablet 1 tablet Orally Once a dayVitamin D 2000 UNIT Tablet Orally Probiotic Capsule Orally Multi For Her 50+ Tablet Orally PriLOSEC 20 MG Capsule Delayed Release 2 capsules Orally Once a daySimvastatin 5 MG Tablet 1 tablet in the evening Orally Once a daytraZODone HCl 50 MG Tablet 1 tablet at bedtime as needed Orally Once a day, Notes: PRNVitamin B-6 50 MG Tablet TAKE 1 TABLET BY MOUTH EVERY DAY Oral Cequa 0.09 % Solution INSTILL 1 DROP INTO AFFECTED EYE 2 TIMES A DAY Ophthalmic Asenapine 3.8 MG/24HR Patch 24 Hour 1 patch to skin Transdermal Once a dayTaking Calcium 500 MG Tablet 1 tablet with meals Orally Twice a dayTaking Vitamin K 100 MCG Tablet 1 tablet Orally Once a dayTaking Neodesha 3 1000 MG Capsule 1 capsule Orally Once a dayTaking Xanax 0.5 MG Tablet 1 tablet Orally Twice a day, Notes: PRNTaking Flonase Allergy Relief 50 MCG/ACT Suspension 1 spray in each nostril Nasally Once a dayTaking Escitalopram Oxalate 20 MG Tablet 1 tablet Orally Once a dayTaking Vitamin D 2000 UNIT Tablet Orally Taking Probiotic Capsule Orally Taking Multi For Her 50+ Tablet Orally Taking PriLOSEC 20 MG Capsule Delayed Release 2 capsules Orally Once a dayTaking Simvastatin 5 MG Tablet 1 tablet in the evening Orally Once a dayTaking traZODone HCl 50 MG Tablet 1 tablet at bedtime as needed Orally Once a day, Notes: PRNTaking Vitamin B-6 50 MG Tablet TAKE 1 TABLET BY MOUTH EVERY DAY Oral Taking Cequa 0.09 % Solution INSTILL 1 DROP INTO AFFECTED EYE 2 TIMES A DAY Ophthalmic Taking Asenapine 3.8 MG/24HR Patch 24 Hour 1 patch to skin Transdermal Once a dayDiscontinuedbusPIRone HCl 15 MG Tablet TAKE 1 TABLET BY MOUTH TWICE A DAY Oral Fluconazole 150 MG Tablet Oral Latuda 20 MG Tablet 1 tablet in the evening with food Orally Once a dayMedication List reviewed and reconciled with the patientDiscontinued busPIRone HCl 15 MG Tablet TAKE 1 TABLET BY MOUTH TWICE A DAY Oral Discontinued Fluconazole 150 MG Tablet Oral Discontinued Latuda 20 MG Tablet 1 tablet in the evening with food Orally Once a dayMedication List reviewed and reconciled with the patient * Allergies:?Vagifem: Skin Sigifredo h - AllergyMotrin: Nausea/Vomiting/Diarrhea - AllergyLamictal: Skin Rash - AllergyPremarin: Skin Rash - AllergyPenicillin: Nausea/Vomiting - AllergyCodeine: Nausea/Vomiting - Allergyno[Allergies Verified] Objective: * Vitals:?Ht: 60.8 in, Wt:135 lbs, BMI:25.67 Index, BP:118/68 mm Hg, Temp:97.1 F. * Examination: ???General Examination: ?GENERAL APPEARANCE:?in no acute distress, well developed, well nourished.?BREASTS:? normal, no dimpling, no discharge, no drainage, no masses palpable bilaterally, nontender.?Gynecological: ?EXTERNAL GENITALIA:?Normal female. No lesions, erythema or discharge.?VAGINA:? atrophic changes.?CERVIX:?No cervical motion tenderness, discharge or lesions.?UTERUS:? normal size, shape and consistency, normal mobility, nontender.?ADNEXA:?no masses or tenderness bilaterally.? Assessment: * Assessment: 1.?Encounter for gynecologic al examination (general) (routine) with abnormal findings - Z01.411 (Primary)?2.?Encounter for screening mammogram for malignant neoplasm of breast - Z12.31 3.?Age-related osteoporosis without current pathological fracture - M81.0?4.?Postmenopausal atrophic vaginitis - N95.2?5.?Inconclusive mammogram - R92.2? Plan: * Treatment: 2.?Encounter for screening m ammogram for malignant neoplasm of breast?Imaging: MM Digital Mammo Screening Notes: REGULAR MAMMOGRAMS AND SBE'S WERE RECOMMENDED.?? 3.?Age-related osteoporosis without current pathological fracture?Imaging: BONE DENSITY Notes: DISCUSSED OSTEOPOROSIS AND ITS IMPACT ON HER HEALTH. ADEQUATE CALCIUM AND VIT D. WEIGHT BEARING EXERCISES. OSTEO PRECAUTIONS. CONITNUE FOLLOW UP WITH DR HARRIS. REPEAT BMD IN 2023.??4.?Postmenopausal atrophic vaginitis? Notes: DISCUSSED FINDINGS, DX AND TX OPTIONS. PAT IS ASYMPTOMATIC.??5.?Inconclusive mammogram? Notes: DISCUSSED DENSE BREASTS ON MAMMOGRAM AND ITS IMPLICATIONS. 3D MAMMOGRAMS WERE RECOMMENDED.?? * Procedure Codes:? * Follow Up:?1 Year * Images: Billing Information: * Visit Code:? * Procedure Codes:? * Sign off status: Completed true * Appointment Provider:?Analilia Galvan M.D. Date:?06/23/2023 Generated for Miranda mariee/Tony/Petronaitting on:?08/30/2024 04:00 PM EST History and Physical Notes * HPI (History of Present Illness) Category Sub-Category Detail Notes Category Not es New/Follow-up Patient Consult PAT ENTERED MENOPAUSE IN HER 50'S. SHE IS NOT SEXUALLY ACTIVE. 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 HER LAST BMD IN 2020 SHOWED THE LOWEST T-SCORE TO BE -2.8 AT [facility]. FRAX=26.5%/8.5%. SHE WAS ON FOSAMAX FROM 2016 TO 2019. HER LAST MAMMOGRAM DONE IN JUN 2022 SHOWED DENSE BREASTS AND WAS NORMAL. HER LIFETIME BREAST CA RISK IS 6.2%. HER LAST PAP TEST IN 2017 WAS NEGATIVE AND HPV NEGATIVE. SHE HAS NO HX OF ABNORMAL PAP TESTS. SHE HAD A COLONOSCOPY DONE IN 2013. SHE WILL DISCUSS ANOTHER COLONOSCOPY WITH HER GI, DR PEDROZA. PFIZER X 5. Examination Category Sub-Category Detail Notes Category Not es General Examination GENERAL APPEARANCE: in no ac [place] distress, well developed, well nourished BREASTS: normal, no dimpling, no discharge, no drainage, no masses palpable bilaterally, nontender Gynecological CERVIX: No cervical motion tenderne ss, discharge or lesions VAGINA: atrophic changes EXTERNAL GENITALIA: Normal female. No le sions, erythema or discharge UTERUS: normal size, shape a nd consistency, normal mobility, nontender ADNEXA: no masses or tendern ess bilaterally
--- OUTSIDE RECORDS SUMMARY | 2024-08-30 16:00 | XMS_ITS ---
Author Organization [facility] Address [address] [place] [address] Care Team Providers Care Set Illustrator Name Role Phone Darwin Hopper Primary Care Provider UnavailJose Borden Unavailable [phone] Allergies Allergen (clinical drug ingredient) Drug/Non Drug Allergy documented on EMR Reaction Allergy Type Onset Date Status codeine Codeine upset stomach Drug Allergy Act alexander Substance with sulfonamide structure and antibacterial mechanism of action (substance) Sulfa Antibiotics rash Drug Allergy Active REASON FOR VISIT At Risk Footcare, Painful Nail(s) aggravated by shoes and causing difficulty standing/walking., Skin problem(s) Medications Medication SIG (Take, Route, Frequency, Duration) Notes Start Date End Date Status Omeprazole 20 MG 1 capsule 30 minutes before morning meal Orally Once a day for 30 day(s) Active Asenapine Maleate 2.5 MG 2 tablets under the tongue and allow to dissolve Sublingual Twice a day for 30 day(s) Not-Taking Ammonium Lactate 12 % 1 application Externally to feet except for between the toes Twice a day for 30 days Active Multivitamin Active Calcium Magnesium Ac tive Simvastatin 5 MG 1 tablet in the even ing Orally Once a day Active [place] 3 Active Cequa 0.09 % 1 drop into affected eye Ophthalmic every 12 hrs Active Vitamin B6 Active Probiotic Active Cymbalta Active Xanax prn Active ALPRAZolam 0.5 MG 1 tablet Orally Twic e a day Active Vitamin D Active SEROquel 25 MG 1 tablet at bedtime Orally Once a day Active traZODone HCl 100 MG 1 tablet at bedtime Orally Once a day for 30 day(s) Not-Taking Fluticasone Propionate Not-Taking Lexapro 10 MG 1 tablet Orally Once a day for 30 day(s) Not-Taking Metoprolol Succinate Active Social History Tobacco Use: Social History Observation Description Date Details (start date - stop date) Never Smoker NA - NA Tobacco Use/Smoking Question Answer Notes Are you a: nonsmoker Tobacco use other than smoking: Question Answer Notes Are you an other tobacco user? No Vital Signs Height 5ft in 06/04/2024 Weight 134 lbs 06/04/2024 BMI 26.17 kg/m2 06/04/2024 Blood pressure systolic 120 mm Hg 06/04/20 24 Blood pressure diastolic 80 mm Hg 024 Procedures Procedure Date Ordered Date Performed Result Body Sit e 37216-HODTFVO NAIL, 6 OR MORE 06/04/2024 N/A 82908-ZTLZ SKIN LESIONS, 2 TO 4 06/04/2024 N/A Encounters Encounter Location Date Provider Diagnosis [facility] [address] [address] 06/04/2024 Jose Baker Atherosclerosis of m[place] artery of both lower extremities, with unspecified presence of clinical manifestation I70.203 ; Tinea unguium B35.1 ; Pain in right toe(s) M79.674 ; Pain in left toe(s) M79.675 and Xerosis of skin L85.3 Assessments Encounter Date Diagnosis (ICD Code) Assessment Notes Treatment Notes Treatment Clinical Notes Section Notes 06/04/2024 Atherosclerosis of [place] artery of both lower extremities, with unspecified presence of clinical manifestation (ICD-10 - I70.203) 06/04/2024 Tinea unguium (ICD-10 - B35.1) 06/04/2024 Pain in right toe(s) (ICD-10 - M79.674) 06/04/2024 Pain in left toe(s) (ICD-10 - M79.675) 06/04/2024 Xerosis of skin (ICD-10 - L85.3) Plan Of Treatment Pending Test Test Name Order Date 37651-OYNFDRQ NAIL, 6 OR MORE 06/04/2024 54481-NMJZ SKIN LESIONS, 2 TO 4 06/04/20 24 Next Appt Details Follow Up: prn, [...] debridement to affected nail(s), as described in exam, was performed extensively to reduce/remove overall nail length, girth, thickness, subungual debris, and necrotic tissue, by manual and/or electrical means through the use of a nail nipper and/or dremel-type terrazzo grinder, to a more viable healthy nail [...] to maintain effectiveness in symptomatic relief - 53293 Keratoma Treatment Parring or Cutting o f Benign Hyperkeratotic Lesion(s) (-56) 2-4 Lesions - Due to the at risk nature of the patients medical condition as documented in the exam findings, performance of this keratoderma treatment is medically necessary as its management by an unskilled/untrained nonprofessional would put this patients foot and overall health at risk. Therefore, the benign hyperkeratotic lesions, ( 2) in total, locations as stated and described in the exam, were pared, and/or cut utilizing a sterile 15 blade, tissue nippers, and/or power dremel instrumentation - 12278, Q8 Progress Notes * Nicole NAVARRODwainB:1950 ( 74 yo F)Acc No.[id number]:06/04/2024 Progress Note Patient:?Madison NAVARRO Provider:?Jose Baker DPM :1950???Age:74 Y???Sex:Female D ate:06/04/2024 Address:[address] [place] [address] Pcp:Darwin Hopper Subjective: * Chief Complaints: * ???At Risk FootcarePainful N ail(s) aggravated by shoes and causing difficulty standing/walking.Skin problem(s) * HPI: ???At Risk footcare:?Pt States Last PCP Visit:?Date?05/17/2024 ???Skin problems:?Treatments:?medication ( AM Lactin ), states adherence to recommended treatment application.? * ROS:?General/Constitutional:?Nausea?denies.?Vomiting?denies.?Hunger Thirst?denies.?Loss appetite?denies.?Chills?denies.?Fatigue?denies.?Fever?denies.?Night Sweats?denies.?Unexplained weight loss?denies.?Unexplained [...] than smoking?Are you an other tobacco user??No * Medications:?TakingMetoprolo l Succinate SEROquel 25 MG Tablet 1 tablet at bedtime Orally Once a day Xanax , Notes to Pharmacist: prnCymbalta ALPRAZolam 0.5 MG Tablet 1 tablet Orally Twice a day Vitamin D Cequa 0.09 % Solution 1 drop into affected eye Ophthalmic every 12 hrs [place] 3 Simvastatin 5 MG Tablet 1 tablet in the evening Orally Once a day Probiotic Vitamin B6 Calcium Magnesium Multivitamin Omeprazole 20 MG Capsule Delayed Release 1 capsule 30 minutes before morning meal Orally Once a day Ammonium Lactate 12 % Cream 1 application Externally to feet except for between the toes Twice a day Taking Metoprolol Succinate Taking SEROquel 25 MG Tablet 1 tablet at bedtime Orally Once a day Taking Xanax , Notes to Pharmacist: prnTaking Cymbalta Taking ALPRAZolam 0.5 MG Tablet 1 tablet Orally Twice a day Taking Vitamin D Taking Cequa 0.09 % Solution 1 drop into affected eye Ophthalmic every 12 hrs Taking [place] 3 Taking Simvastatin 5 MG Tablet 1 tablet in the evening Orally Once a day Taking Probiotic Taking Vitamin B6 Taking Calcium Magnesium Taking Multivitamin Taking Omeprazole 20 MG Capsule Delayed Release 1 capsule 30 minutes before morning meal Orally Once a day Taking Ammonium Lactate 12 % Cream 1 application Externally to feet except for between the toes Twice a day Not-Taking/PRNAsenapine Maleate 2.5 MG Tablet Sublingual 2 tablets [...] upset stomachyes[Allergies Verified] Objective: * Vitals:?Ht: 5ft, Wt:134, BMI :26.17, Shoe size: 6-6.5, BP:120/80mm Hg, Ht-cm: 152.4 cm, Wt-k.78 kg. * Examination: ???Vascular: ?DP PULSES(B):? 0/4, B/L.?PT PULSES(B):?1/4, B/L.?CAPILLARY FILL TIME:? delayed, all digits, B/L.?TROPHIC CONDITION-TEXTURE/ELASTICITY/TURGOR/HAIR GROWTH(B):? decreased,?with sparse to absent hair growth, B/L.?TEMPERTURE GRADIENT(C):? decreased, cool to cool, proximal to distal, B/L.?PIGMENTATION:?mottled, rubrous, B/L.?EDEMA(C):?absent, B/L.?CLAUDICATION(C):?denies, B/L.?REST PAIN:?denies, B/L.?Nails: ?NAILS are:?Elongated, overgrown, dystrophic, lytic, greater than 3mm thick, discolored and friable with crumbly malodorous subungual debris, with pain on palpation, T1, T4, 1-5 Right foot.?Dermatologic: ?SKIN FINDINGS:?Skin exam reveals Keratotic lesion(s) located at , SUB MTH (s) , 1 , B/L , Skin shows approximately 60-70 percent LESS, sign(s) of, dryness, scaling, in a stocking fashion, no fissure(s) present, B/L.? Assessment: * Assessment: 1.?Tinea unguium - B35.1???2 .?Atherosclerosis of [place] artery of both lower extremities, with unspecified presence of clinical manifestation - I70.203 (Primary)???3.?Pain in right toe(s) - M79.674???4.?Pain in left toe(s) - M79.675 ??5.?Xerosis of skin - L85.3???Specify :Acute problem, Stable Response to treatment - Improvement??? Plan: * Treatment: 2.?Tinea unguium?Procedure: 11782-LUVXGDM NAIL, 6 OR MORE * Procedures:?Debride Nail 6-10:?Nail debridement?Due to the clinical pathology outlined in the exam findings, performance of this nail treatment is medically necessary as its management by an unskilled/untrained nonprofessional would put this patients foot and overall health at risk. Therefore, debridement to affected nail(s), as described in exam, was performed extensively to reduce/remove overall nail length, girth, thickness, subungual debris, and necrotic tissue, by manual and/or electrical means through the use of a nail nipper and/or dremel-type terrazzo grinder, to a more viable healthy nail [...] to maintain effectiveness in symptomatic relief - 66639.?Keratoma Treatment:?Parring or Cutting of Benign Hyperkeratotic Lesion(s)?(-56) 2-4 Lesions - Due to the at risk nature of the patients medical condition as documented in the exam findings, performance of this keratoderma treatment is medically necessary as its management by an unskilled/untrained nonprofessional would put this patients foot and overall health at risk. Therefore, the benign hyperkeratotic lesions, ( 2) in total, locations as stated and described in the exam, were pared, and/or cut utilizing a sterile 15 blade, tissue nippers, and/or power dremel instrumentation - 66352, Q8.? * Procedure Codes:?09138 DEBRI DE NAIL, 6 OR MORE, Modifiers: XS 15928 TRIM SKIN LESIONS, 2 TO 4, Modifiers: XS , Q8 * Preventive Medicine:? ??Counseling:?Discussion:?-12: Office or other outpatient visit for the evaluation and management of an established patient, which required a medically appropriate history and/or examination and STRAIGHTFORWARD level of MEDICAL DECISION MAKING, 1 SELF-LIMITED OR MINOR PROBLEM, MINIMAL- NO AMOUNT/COMPLEXITY OF DATA TO BE REVIEWED/ANALYZED, AND MINIMAL RISK OF COMPLICATION/MORBIDITY. The visit on the day of the [...] have encouraged the patient to call the office.?Xerosis:?Given recent successful results to treatment, The patient is to cont the rx cream as directed.? ??Screening/Special Tests:?Fall Risk?Screening:?No falls in the past year ?FALLS: Screening for Future Fall Risk?Have you had any falls with injury in the past year??No * Follow Up:?prn * Images: * Sign off status: Completed true * Provider:?Jose Baker DPM Date:?2023 Generated for Miranda mariee/Tony/Rodrigo on:?08/30/2024 03:59 PM EST History and Physical Notes * HPI (History of Present Illness) Category Sub-Category Detail Notes Category Not es Skin problems Treatments: medication ( AM Lactin ), states adherence to recommended treatment application At Risk footcare Pt States Last PCP Visit: Date: 05/17/2024 Examination Category Sub-Category Detail Notes Category Not es Dermatologic SKIN FINDINGS: Skin exam reveal s Keratotic lesion(s) located at , SUB MTH (s) , 1 , B/L , Skin shows approximately 60-70 percent LESS, sign(s) of, dryness, scaling, in a stocking [...]
--- OUTSIDE RECORDS SUMMARY | 2024-08-30 16:00 | XMS_ITS | Patient Health Record ---
Author Organization [employer] Address [address] [place] [address] Care Team Providers Care Grinder Gear Name Role Phone CARROLL SHANNON M.D. Primary Care Provider Analilia Manning Unavailable [phone] Allergies Allergen (clinical drug ingredient) Drug/Non Drug Allergy documented on EMR Reaction Allergy Type Onset Date Status lamotrigine Lamictal Skin Rash Drug Allergy Activ e Motrin Nausea/Vomiting/ Diarrhea Drug Allergy Active estrogens, conjugated (INTERMEDIATE) Premarin Skin Rash Drug Allergy Active estradiol Vagifem Skin Rash Drug Allergy Active codeine Codeine Nausea/Vomiting Drug Allergy A ctive Penicillin Nausea/Vomiting Drug Allergy Active Reason For Referral No Information Medications Medication SIG (Take, Route, Frequency, Duration) Notes Start Date End Date Status Vitamin B-6 50 MG TAKE 1 TABLET BY CATARINA EVERY DAY Oral for 90 Active Cequa 0.09 % INSTILL 1 DROP INTO AFFECTED EYE 2 TIMES A DAY Ophthalmic for 30 Active Calcium 500 MG 1 tablet with meals Orally Twice a day for 30 day(s) Active Asenapine 3.8 MG/24HR 1 patch to skin Tr ansdermal Once a day for 30 day(s) 06/23/2023 Active Vitamin K 100 MCG 1 tablet Orally Once a day for 30 day(s) Active Alendronate Sodium 70 MG 1 tablet 30 min utes before the first food, beverage or medicine of the day with plain water Orally for 30 day(s) 06/28/2024 Active Probiotic Orally Active Multi For Her 50+ Orally Ac tive PriLOSEC 20 MG 2 capsules Orally On ce a day Active Simvastatin 5 MG 1 tablet in the even ing Orally Once a day Active [place] 3 1000 MG 1 capsule Orally Onc e a day for 30 day(s) Active hydrOXYzine HCl 10 MG TAKE 1 TABLET BY M OUT TWICE A DAY NEEDED Oral for 15 Days Active Xanax 0.5 MG 1 tablet Orally Twice a day PRN Active Vitamin D 2000 UNIT Orally Active Social History Tobacco Use: Social History [...] (Standard) Question Answer Notes Tobacco use: Nonsmoker Problems Problem Type SNOMED Code ICD Code Onset Dates Problem Status W/U Status Risk Notes Problem Gynecological examination abnormal (794468416122314) Encounter for gynecological examination (general) (routine) with abnormal findings (Z01.411) Active confirmed Problem Postmenopausal atrophic vaginitis (12539946) Postmenopausal atrophic vaginitis (N95.2) Active confirmed Problem Age-related osteoporosis (010824303) Age-related osteoporosis without current pathological fracture (M81.0) Active confirmed Problem Urinary incontinence (790113097) Unspecified urinary incontinence (R32) Active confirmed Problem Constipation (70705799) Constipation, unspecified (K59.00) Active confirmed Problem Anxiety state (396976798) Anxiety state, unspecified (300.00) Active confirmed Major Problem Depressive disorder (58162166) Depressive disorder, not elsewhere classified (311) Active confirmed Major Problem Dyspareunia (53794115) Dyspareunia (625.0) Active confirmed Diag Problem Female stress incontinence (83015858) Female stress incontinence (625.6) Active confirmed Major Problem Menopausal symptom (50631350) Symptomatic menopausal or female climacteric states (627.2) Active confirmed Major Problem Postmenopausal atrophic vaginitis (27767100) Postmenopausal atrophic vaginitis (627.3) Active confirmed Diag Problem Osteoporosis (33780291) Unspecified osteoporosis (733.00) Active confirmed Problem Gynecological examination normal (522015165333341) Routine gynecological examination (V72.31) Active confirmed Major Problem Screening for malignant neoplasm of colon (880387326) Special screening for malignant neoplasms, colon (V76.51) Active confirmed Major Vital Signs Temperature 97.4 degrees Fahrenheit 06/28/2024 Blood pressure diastolic 74 mm Hg 06/28/2024 Height 60.8 in 06/28/2024 Blood pressure systolic 108 mm Hg 06/28/2024 Weight 140 lbs 06/28/2024 BMI 26.62 kg/m2 06/28/2024 Encounters Encounter Location Date Provider Diagnosis [address] [place] [address] 06/28/2024 Analilia Cole Encounter for gynecological examination (general) (routine) without [...] OPTIONS. PAT IS ASYMPTOMATIC. Plan Of Treatment Pending Test Test Name Order Date MAMMOGRAM, SCREENING 06/13/2020 MAMMOGRAM, SCREENING 06/16/2022 MAMMOGRAM, SCREENING 06/28/2024 Ultrasound : Guide Aspir. or Biopsy 03/28 THIN PREP,HPV,MATTI IF HPV+ (>29YR)(SCRN) 03/27/2018 BONE DENSITY 06/13/2020 BONE DENSITY 06/16/2022 BONE DENSITY 02/05/2015 BONE DENSITY 06/23/2023 MM Digital Mammo Screening 06/28/2024 MM Digital Mammo Screening 02/05/2015 MM Digital Mammo Screening 02/25/2016 MM Digital Mammo Screening 06/07/2019 MM Digital Mammo Screening 06/13/2020 MM Digital Mammo Screening 06/23/2023 MM Digital Mammo Screening 06/15/2021 MM Digital Mammo Screening 06/16/2022 Next Appt Details Provider Name:Analilia granda, 07/05/2025 03:00:00 PM, [address], [address], [place], [address], Insurance Providers Payer Name Payer Address Payer Phone Subscriber Number Group Number Insured Name Patient Relationship to Insured Coverage Start Date Coverage End Date MEDICARE [address] [place], [place] [id number] DEONHOLLY MOLINAA Self - patient is the insured MEDEX [address] [place] [address] [id number] DEONHOLLY MOLINAA Self - patient is the insured Medical (General) History Medical History History ICD Code Postmenopausal atrophic vaginitis N95.2 Dyspareunia N94.1 Age-related osteoporosis without current pathological fracture M81.0 Anxiety disorder, unspecified F41.9 Stress incontinence (female) (male) N39. 3 Major depressive disorder, single episod e, unspecified F32.9 Menopausal and female climacteric states N95.1 Inconclusive mammogram R92.2 Mastodynia N64.4 Solitary cyst of left breast N60.02 Mammographic heterogeneous density, bila teral breasts R92.333 Surgical History Surgery Date(Month/Year) Appendectomy Tonsillectomy & Adenoidectomy Cholecystectomy Colonoscopy Upper & Lower Eye Lid surgery Right Knee Torn Menisus Cataracts Surgery Peridontal Surgery 09/2021 Hospitalization History Reason Date(Month/Year) See Surgical Hx
--- OUTSIDE RECORDS SUMMARY | 2024-08-30 16:00 | XMS_ITS | Patient Health Record ---
[facility] Address [address] [place] [address] Care Team Providers Care Tariff Publishing Agent Name Role Phone Po Darwin GONZALES Primary Care Provider Zoltan Grant Jr Unavailable Allergies Allergen (clinical drug ingredient) Drug/Non Drug Allergy documented on EMR Reaction Allergy Type Onset Date Status Penicillin Unknown Drug Allergy Active Motrin Unknown Drug Allergy Active lamotrigine Lamictal Unknown Drug Allergy Activ e Codeine Phosphate Unknown Drug Allergy Active Reason For Referral No Information Medications Medication SIG (Take, Route, Frequency, Duration) Notes Start Date End Date Status Multi Vitamin/Minerals - 1 Orally QD Active [place] 3 1000 MG 1 AND half capsule [...] Once a day for 30 day(s) Active Immunizations Vaccine Route Administration Date Status Comme nts Influenza Unknown 02/25/2017 Administered Influenza Unknown 01/25/2019 Administered Influenza Unknown 02/26/2020 Administered Influenza Unknown 03/26/2021 Administered Influenza Unknown 02/25/2022 Administered Problems Problem Type SNOMED Code ICD Code Onset Dates Problem Status W/U Status Risk Notes Problem 598370953 Left lower quadr ant pain (R10.32) Active confirmed Problem 04728826 Functional diarr hea (K59.1) Active confirmed Problem 859963747 Dorsalgia, unspecified (M54.9) Active confirmed Problem 717938513 Elevated LFTs (R79.89) Active confirmed Problem 062707894 Gastroesophageal reflux disease without esophagitis (K21.9) Active confirmed Problem 44680936 Dysphagia, unspecified type (R13.10) Active confirmed Problem 875746896 Abdominal pain, LLQ (R10.32) Active confirmed Problem 111456302 Irritable bowel syndrome with constipation (K58.1) Active confirmed Problem 409166354 FH: colon polyps (Z83.71) Active confirmed Problem 320216156 LLQ pain (R10.32) Active confirmed Encounters Encounter Location Date Provider Diagnosis [facility] [address] [place] [address] 07/11/2024 Zoltan Vazquez Jr Plan Of Treatment Pending Test Test Name Order Date LIVER PROFILE 07/01/2022 XR GI SERIES 09/22/2017 Future Test Test Name Order Date COLONOSCOPY 12/10/2013 UPPER GI ENDOSCOPY 09/22/2017 COLONOSCOPY 05/08/2020 Next Appt Details Provider Name:Zoltan turner Jr, 10/22/2024 01:35:00 PM, [address], [address], [place], [address], Insurance Providers Payer Name Payer Address Payer Phone Subscriber Number Group Number Insured Name Patient Relationship to Insured Coverage Start Date Coverage End Date MEDICARE [place] [address] [place] [id number] DEONJESSEKIKE Self - patient is the insured MEDEX ATTN CLAIMS [address] [place] [address] [phone] [id number] DEONJESSEKIKE Self - patient is the insured Medical (General) History Medical History History ICD Code insomnia depression/anxiety [...]
--- OUTSIDE RECORDS SUMMARY | 2024-08-30 16:00 | XMS_ITS ---
Author Organization [facility] Address [address] [place] [address] Care Team Providers Care Wharf Labourer Name Role Phone Darwin Hopper MD Primary Care Provider Zoltan Grant Jr [phone] REASON FOR VISIT IBS,gerd Encounters Encounter Location Date Provider Diagnosis [facility] [address] [place] [address] 07/05/2024 Zoltan Vazquez Jr Plan Of Treatment Next Appt Details Provider Name:Zoltan turner Jr, 10/22/2024 01:35:00 PM, [address], [address], [place], [address], Progress Notes * KIKE TRANDOB:1950 (74 yo F)Acc No.[id number]:07/05/2024 Progress Notes Patient:?KIKE TRAN Provider:?Zoltan Vazquez MD :1950???Age:74 Y???Sex:Female D ate:07/05/2024 Address:[address] [place] [address] [facility] Pcp:Darwin Hopper MD Subjective: * Chief Complaints: * ???1. IBS,gerd. * Medical History:? Objective: * Vitals:? Assessment: Plan: * Treatment: * * The named appointment provid er may or may not be the originator of this progress note, and it is not deemed complete until electronically signed by the appointment provider. Sign off status: Pending * Provider:?Zoltan Vazquez MD Date:?0 07/05/2024 Generated for Miranda mariee/Tony/Rodrigo on:?08/30/2024 03:59 PM EST
[2024-08-30 17:03] LABS: Alanine Aminotransferase 48 U/L (0-31); Albumin Level 4.1 g/dL (3.5-5.0); Alkaline Phosphatase 57 U/L (39-117); Anion Gap 12 (12-20); Aspartate Amino Transferase 29 U/L (5-31); Bilirubin Total 0.6 mg/dL (0.0-1.0); Blood Urea Nitrogen 16 mg/dL (9-16); Calcium 9.4 mg/dL (8.4-10.2); Carbon Dioxide 27 mmol/L (22-29); Chloride 107 mmol/L (96-108); Estimated Glomerular Filt Rate > 60; Glucose Random 110 mg/dL (60-115); Potassium 3.8 mmol/L (3.3-5.1); Sodium 142 mmol/L (135-145); Total Protein 7.5 g/dL (6.5-8.0)
[2024-08-30 17:19] LABS: Erythrocyte Sedimentation Rate 11 MM/HR (0-20)
== END 2024-08-30 13:13 | disposition home or self-care (01) ==
LOC: HO.HMGCLDS 13:12
PROVIDERS: PCP Internal Medicine; Visit Provider Physician Assistant
DX: K12.0 Recurrent oral aphthae (principal); M35.00 Sjogren syndrome, unspecified; R20.8 Other disturbances of skin sensation
CPT/HCPCS: 36415; 80053; 85652

== ENCOUNTER 2024-09-11 14:02 | Outpatient (REF) | payer MEDICARE, SELFPAY ==
[2024-09-11 16:18] LABS: MANUAL DIFF FLAG NO
[2024-09-11 16:58] LABS: Basophils Percent Auto 0.5 % (0-2); Eosinophils Absolute Auto 0.1 X10*3/uL (0.0-0.4); Hematocrit 41.8 % (37.0-47.0); Hemoglobin 14.7 g/dl (12.0-16.0); Imm Gran Abs Auto 0.03 X10*3/uL (0.00-0.03); Imm Gran Pct Auto 0.5 % (0.0-0.4); Lymphocytes Absolute Auto 1.2 X10*3/uL (1.2-4.9); Lymphocytes Percent Auto 17.6 % (20-40); Mean Corpuscular HGB Conc 35.2 g/dl (31.0-35.0); Mean Corpuscular Hemoglobin 33.3 pg (27.0-33.0); Mean Corpuscular Volume 94.8 fL (80.0-98.0); Monocytes Absolute Auto 0.5 X10*3/uL (0.1-1.2); Monocytes Percent Auto 8.2 % (2-11); Neutrophils Absolute Auto 4.7 x10*3/uL (2.0-8.3); Neutrophils Percent Auto 71.2 % (45-73); Platelet Count 230 X10*3/uL (160-400); Red Blood Count 4.41 X10*6/uL (4.20-5.50); Red Cell Distribution Width 13.9 % (11.0-16.0); White Blood Count 6.6 X10*3/uL (4.8-10.8)
[2024-09-11 17:11] LABS: C Reactive Protein 0.28 mg/dL (< or = 0.50)
[2024-09-11 17:12] LABS: Rheumatoid Factor < 13.0 IU/mL (<15.0)
[2024-09-12 14:34] LABS: Complement C3 176 mg/dL (83-193)
[2024-09-12 20:33] LABS: Anti DNA DS Antibody 1 IU/mL; Antibody to SS-A Antigen <1.0 NEG AI (<1.0 NEG); Antibody to SS-B Antigen <1.0 NEG AI (<1.0 NEG); SM/Ribonucleoprotein Ab <1.0 NEG AI (<1.0 NEG); Smith Protein <1.0 NEG AI (<1.0 NEG)
[2024-09-18 10:58] LABS: Anti Nuclear Antibody Pattern Nuclear, Homogeneous; Anti Nuclear Antibody Screen POSITIVE (NEGATIVE); Anti Nuclear Antibody Titer 1:40 titer
== END 2024-09-11 14:03 | disposition home or self-care (01) ==
LOC: HO.HMGCLDS 14:02
PROVIDERS: PCP Internal Medicine; Visit Provider Physician Assistant
DX: K12.0 Recurrent oral aphthae (principal); M35.00 Sjogren syndrome, unspecified; R20.8 Other disturbances of skin sensation
CPT/HCPCS: 36415; 85025; 86038; 86039; 86140; 86160; 86225; 86235; 86431

== ENCOUNTER 2024-10-04 14:48 | Outpatient (AMB) | payer MEDICARE, SELFPAY ==
[2024-10-04 15:16] VITALS: BP 124/80; PULSE 94; TEMP 36.2; O2SAT 99; BMI 25.6
--- NOTE | 2024-10-04 15:16 | AM.OFFVISMDC ---
Intake Vital Signs 10/04/24 15:16 Height 4 ft 11.53 in Weight 129 lb 2 oz BMI 25.6 BP 124/80 Blood Pressure Location Lt brachial Position Sitting Pulse 94 Pulse Source Pulse Oximeter Temp 97.1 F Temp Source Temporal Artery Scan Pulse Oximetry (%) 99 Oxygen Delivery Method Room Air Intake Visit Reasons: AWV [id number] Allergies lamotrigine [From LAMICTAL] Allergy (Intermediate, Verified 06/29/24 14:03) RASH Sulfa (Sulfonamide Antibiotics) [SULFA (SULFONAMIDE ANTIBIOTICS)] Allergy (Intermediate, Verified 06/29/24 14:03) UNKNOWN, upset stomach codeine [CODEINE] Allergy (Mild, Verified 06/29/24 14:03) NAUSEA & VOMITING, nausea and vomiting penicillin V [PENICILLIN V] Allergy (Mild, Verified 06/29/24 14:03) NAUSEA & VOMITING, sick to stomach, nausea and vomiting ciprofloxacin [Cipro] Allergy (Unknown, Verified 06/29/24 14:03) sick to stomach ibuprofen [From Motrin] Adverse Reaction (Verified 06/29/24 14:03) sick to stomach, nausea and vomiting Medication List - Last Reconciled 10/04/24 by Darwin Hopper MD alendronate 70 mg PO QWEEK alprazolam 0.5 mg PO BID PRN calcium carb and citrat-mag ox 200 mg calcium- 50 mg tabs PO cevimeline 1 cap PO TID cholecalciferol (vitamin D3) 25 mcg PO DAILY cyclosporine 0.09% (Cequa) 1 drp ophthalmic (eye) Q12H duloxetine 120 mg PO DAILY multivitamin 1 tab PO DAILY omega-3 fatty acids 1,000 mg PO DAILY omeprazole 20 mg PO DAILY pyridoxine (vitamin B6) 100 mg PO DAILY 90 days simvastatin 5 mg PO BEDTIME vitamin K2 45 mcg PO DAILY PFSH Medical History Post-nasal drip Bronchitis Numbness in feet Impacted cerumen of left ear Hoarseness Stye Hoarseness Hip pain, right Lower back pain Colon cancer screening Acute sinusitis Trigger finger of right hand Sjogren's syndrome Bile salt-induced diarrhea Osteoarthritis Irritable bowel syndrome GERD (gastroesophageal reflux disease) Essential tremor Hypercholesterolemia Calculus of left kidney Constipation Cholecystectomy planned Right knee meniscal tear Hepatitis Osteoporosis Umbilical hernia History of duodenal ulcer Liver hemangioma Surgical History Hx of tonsillectomy History of cholecystectomy Cataract History of knee surgery History of eyelid surgery H/O adenoidectomy History of appendectomy Family History Father Hypertension Prostate cancer Mother Hypertension Diabetes Dementia Maternal Aunt Gastric cancer Paternal Aunt Gastric cancer Ovarian cancer Paternal Uncle Myocardial infarction Social History Household Members: Spouse Housing: House Do you presently have visiting nurse or other home services: No Alcohol intake: never Patient Tobacco Use Status: Never used Tobacco e-Cigarette/Vaping Use: Never Used Second Hand Smoke Exposure: No service: No Current occupational status: retired Cognitive needs: No Hearing needs: No Vision needs: Yes Questionnaire Medicare Wellness Checkup [age] What gender do you identify with?: female During the past 4 weeks, how much have you been bothered by emotional problems such as feeling anxious, depressed, irritable, sad or downhearted, and blue?: moderately During the past 4 weeks, has your physical & emotional health limited your social activities with family, friends, neighbors, or groups?: quite a bit During the past 4 weeks, how much bodily pain have you generally had?: moderate pain During the past 4 weeks, was someone available to help you if you needed & wanted help?: yes, a little During the past 4 weeks, what was the hardest physical activity you could do for at least 2 minutes?: light Can you get to places out of walking distance without help? (For eg., can you travel alone on buses, taxis or drive your car?): No Can you go shopping for groceries or clothes without someone's help?: Yes Can you prepare your own meals?: Yes Can you do your housework without help?: Yes Because of any health problems, do you need the help of another person with your personal care needs such as eating, bathing, dressing or getting around the house?: No Can you handle your own money without help?: Yes During the past 4 weeks, how would you rate your health in general?: fair During the past 4 weeks how have things been going for you?: pretty bad Are you having difficulties driving your car?: not applicable, I don't use a car Do you always fasten your seat belt when you are in a car?: yes, usually During past 4 weeks, have you been bothered by the following: never: Falling or dizzy when standing up, Sexual problems? and Problems using the telephone?, seldom: Teeth or denture problems? and sometimes: Trouble eating well? and Tiredness or fatigue? Have you fallen 2 or more times in the past year?: No Are you afraid of falling?: No Are you a smoker?: no During the past 4 weeks, how many drinks of wine, beer, or other alcoholic beverages did you have?: 1 drink or less per week Do you exercise for about 20 minutes 3 or more times a week?: no, I usually do not exercise this much Have you been given information to help with the following?: no: Hazards in your house that might hurt you? and no: Keeping track of your medications? How often do you have trouble taking medicines the way you have been told to take them?: I always take medicine as prescribed How confident are you that you can control & manage most of your health problems?: somewhat confident What is your race?: White PHQ-9 Over the last 2 weeks, how often have you been bothered by any of the following problems? 1. Little interest or pleasure in doing things: more than half the days 3. Trouble falling or staying asleep, or sleeping too much: more than half the days 4. Feeling tired or having little energy: several days 5. Poor appetite or overeating: more than half the days 6. Feeling bad about yourself - or that you are a failure or have let yourself or your family down: not at all 7. Trouble concentrating on things, such as reading the newspaper or watching television: not at all 8. Moving or speaking so slowly that other people could have noticed. Or the opposite - being so fidgety or restless that you have been moving around a lot more than usual: not at all 9. Thoughts that you would be better off or of hurting yourself in some way: not at all [address] - PHQ-9 Billing: Yes Source: Developed by Drs. Benny Marcano, Gina Gonzalez, Obi Guajardo and colleagues, with an educational garcia from [employer]. Review of Systems Const Denies poor appetite and Denies weakness Eyes Denies no additional complaints ENT Reports Normal hearing present, Denies dizziness, Denies nasal congestion, Denies tinnitus and Denies sore throat Card Denies chest pain, Denies syncope, Denies rapid heart rate and Denies dyspnea Resp Denies cough and Denies dyspnea GI Denies change in stool character, Reports constipation, Denies diarrhea, Denies nausea and Denies vomiting Denies urinary frequency, Denies difficulty voiding and Denies dysuria Neuro Reports Normal hearing present, Denies confusion, Denies dizziness, Denies syncope and Denies weakness Psych Denies confusion Physical Exam Vital Signs: Last Vital Signs Temp 97.1 F 10/04/24 15:16 Pulse 94 10/04/24 15:16 BP 124/80 10/04/24 15:16 Pulse Ox 99 10/04/24 15:16 Oxygen Delivery Method Room Air 10/04/24 15:16 BMI result Body Mass Index 25.6 Const General: No confusion Orientation/consciousness: No confusion HEENT Head: Yes normocephalic Ears: external ears normal and TM's normal bilaterally Face and sinus: Yes normal facial exam Mouth: moist mucous membranes Throat: Yes tonsils normal Eyes Conjunctivae: conjunctivae normal Pupils: Equal, round and reactive pupils present and Pupil accommodation reflex normal Direct Ophthalmoscopy: normal light reflex Neck Neck: No lymphadenopathy Thyroid: Thyroid normal Chest Chest palpation & inspection: normal inspection of the chest Resp Effort & Inspection: normal respiratory effort and no audible wheezes Auscultation: clear to auscultation bilaterally, no crackles, no wheezes and lung sounds not diminished Cardio Rate: regular rate Rhythm: regular rhythm Peripheral pulses: radial pulses present and dorsalis pedis present GI Palpation (GI): no masses Auscultation: normal bowel sounds and normoactive bowel sounds Rectal Exam - Female: deferred Skin General skin exam: no rashes or lesions noted Rashes: no rashes Neuro General: No confusion Cranial nerves: Yes Equal, round and reactive pupils present and Yes Normal hearing present Cognition (Neuro): normal cognition Gait exam (Neuro): Normal gait present Motor exam (neuro): 5/5 motor strength present throughout Deep tendon reflexes (DTR's): Right brachioradialis reflex intensity grade: 2+, Left brachioradialis reflex intensity grade: 2+, Right patellar reflex intensity grade: 2+ and Left patellar reflex intensity grade: 2+ Extrem General: No edema Assessment & Plan Assessment & Plan (1) Medicare annual wellness visit, subsequent: Code(s): Z00.00 - Encounter for general adult medical examination without abnormal findings Plan: Patient is advised to eat healthy, keep well hydrated, keep active and have adequate sleep. (2) Sjogren's syndrome: Code(s): M35.00 - Sjogren syndrome, unspecified Qualifiers: Sjogren's organ involvement: unspecified organ involvement Qualified Code(s): M35.00 - Sicca syndrome, unspecified Plan: Advised patient to see Rheumatology. Patient has been told that the test for Sjogren's was negative. (3) GERD (gastroesophageal reflux disease): Code(s): K21.9 - Gastro-esophageal reflux disease without esophagitis Qualifiers: Esophagitis presence: without esophagitis Qualified Code(s): K21.9 - Gastro-esophageal reflux disease without esophagitis Plan: Avoid the foods that causes that usually spicy foods, tomato products, juices, coffee, soda and foods that your sensitive to. After eating do not lie down, allow 3-4 hours before in lie down. And keep the head of bed above 30 degrees to avoid the acid from going up. (4) Hypercholesterolemia: Code(s): E78.00 - Pure hypercholesterolemia, unspecified Plan: Avoid fried foods, chicken skin, eggs, butter margarine, pastries and meat. Be it pork or beef they have a lot of cholesterol on simvastatin 5 mg at bedtime (5) Nephrolithiasis: Comment: 04/2022 Code(s): N20.0 - Calculus of kidney Plan: Keep well hydrated avoid NSAIDs (6) Generalized anxiety disorder: Comment: Dr. Cortes Q2-3 months and counselling Q 2-3 weeks Code(s): F41.1 - Generalized anxiety disorder Plan: Continue with alprazolam duloxetine quetiapine trazodone (7) Osteoporosis: Comment: 2020 Code(s): M81.0 - Age-related osteoporosis without current pathological fracture Plan: Up-to-date with bone density and is on alendronate Plan History of Present Illness The patient is a 74-year-old female presenting for an annual well visit. She has a complex medical history including hypercholesterolemia, GERD, and Sj?gren's syndrome. Her cholesterol has been well-managed recently with simvastatin, as indicated by her LDL of 101 mg/dL. GERD is controlled with omeprazole, while her Sj?gren's-associated symptoms like dryness in her mouth and eyes are being addressed with sevimeline and cyclosporine. Her renal health is a concern due to a history of nephrolithiasis with bilateral calculi, requiring diligent hydration for prevention. Osteoporosis is controlled with alendronate and appropriate vitamin D and calcium supplementation. For anxiety, she is maintained on duloxetine at 120 mg per day. 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 Recent lab results showed a slight elevation in blood glucose, raising mild concern for glucose intolerance. Recent screenings, including a mammogram and colonoscopy, were completed timely. Although Sj?gren's syndrome has been a suspected diagnosis, recent inflammatory marker results negated active systemic inflammation. Health Maintenance - Mammogram completed August 2024 - Last colonoscopy was July 2014 - Bone Density test in May 2023 - Avoidance of NSAIDs recommended for nephrolithiasis prevention - Continues on calcium and vitamin D supplementation for osteoporosis - Blood pressure, cholesterol, and glucose levels are monitored and managed as per current medications Social History - No specific social determinants of health discussed Review of Systems - Skin: Reports dry, itchy skin and episodic rash - Ophthalmologic: Reports no new vision problems besides needing glasses - Gastrointestinal: Reports previous antibiotic-associated diarrhea - Genitourinary: Denies urinary issues; reports adequate urination overnight - Neurologic: Denies issues with balance or coordination - General: Denies fever Physical Exam General: Cooperative, healthy appearing, comfortable, no acute distress and well developed Orientation: Patient oriented x3 Limitations: No limitations Head: Normal to inspection Ears: Hearing grossly normal bilaterally Nose: Normal external nose present Face and sinus: Normal facial exam Eyes: Appearance normal, both eyes and all related structures Neck: Normal visual inspection and Yes full ROM Respiratory: Normal respiratory effort and able to speak in complete sentences. Clear to auscultation bilaterally Cardiovascular: Regular rate and rhythm. Normal S1 and S2 GI: Normal to inspection. Soft to palpation and nontender Skin: Xerotic dermatitis noted, no rashes or lesions noted Neuro: Patient oriented x3 Extremities: Normal to inspection Results - Labs: Blood glucose 110 mg/dL, LDL 101 mg/dL, elevated liver enzymes, normal C-reactive protein, electrolytes, renal function - Tests: Recent mammogram in August 2024, last colonoscopy in July 2014, bone density in May 2023 Plan The management of hypercholesterolemia will continue with simvastatin, as her current LDL levels are satisfactory. GERD will remain treated with omeprazole. To prevent nephrolithiasis, patient adherence to increased hydration will be emphasized. Osteoporosis treatment with alendronate and vitamin D/calcium supplementation will continue due to the bone management plan. Duloxetine remains the primary agent for generalized anxiety disorder, with cessation of hydroxyzine. Dermatological management of xerotic dermatitis will proceed with topical prescriptions. Further rheumatological assessment may be considered to ascertain the treatment pathway for suspected Sj?gren's syndrome symptoms, despite negative inflammatory markers. Patient was informed and verbally consented to the use of an ambient scribe for clinic note documentation during this visit. Discussion Notes During the conversation, I reviewed the management of hypercholesterolemia with simvastatin, GERD treatment with omeprazole, prevention strategies for nephrolithiasis through increased hydration, and osteoporosis management with alendronate and supplements. Options for anxiety were discussed, with agreement on continuing duloxetine. Topical treatments for xerotic dermatitis were reinforced, supported by input from dermatology. While the patient's symptoms suggest Sj?gren's syndrome, further rheumatological evaluation may be warranted based on her symptom persistence. I discussed the importance of monitoring and acknowledged concerns surrounding glucose levels, emphasizing smart dietary choices to manage mild hyperglycemia. Routine screenings were addressed, including recent mammogram results. Recommendations were laid out in a comprehensive wellness strategy, with follow-up scheduled in three months. Patient Instructions - Continue simvastatin, omeprazole, calcium, and vitamin D as prescribed - Maintain adequate hydration for kidney stone prevention - Continue using topical treatments for dermatitis as prescribed by dermatology - Follow a balanced diet with reduced sugar intake - Schedule and adhere to regular health screenings - Monitor for any new symptoms and follow up if there are any concerns or changes - Plan to return in three months for routine follow-up and any necessary further evaluations Orders: Referrals Rheumatology Referral M35.00 - Sjogren syndrome, unspecified Coding Level of Care Code Medicare Subsequent (G0439) Diagnoses Medicare annual wellness visit, subsequent Z00.00 Sjogren's syndrome, with unspecified organ involvement M35.00 Sjogren's organ involvement: unspecified organ involvement Gastroesophageal reflux disease without esophagitis K21.9 Esophagitis presence: without esophagitis Hypercholesterolemia E78.00 Nephrolithiasis N20.0 Generalized anxiety disorder F41.1 Osteoporosis M81.0 Additional Codes PHQ-9 - 12976 - PHQ-9 Billing: Yes ([id number])
--- OUTSIDE RECORDS SUMMARY | 2024-10-04 17:25 | XMS_ITS | Clinical Summary ---
Author Organization [facility] Address [address] [place] [address] Phone Care Team Providers Care Manager Specialty Name Role Phone Darwin Hopper MD Primary Care Provider [phone] Encounters Date Type Department Care Team Description 09/13/2024 1:56 PM EDT - 09/13/2024 11:59 PM EDT [facility] [address] [address] Encounter for screening mammogram for breast cancer Discharge Disposition: Home or Self Care from Last 3 Months Surgical History Surgery Date Site/Laterality Comments ADENOIDECTOMY PROCEDURE:ADENOIDECTOMY APPENDECTOMY PROCEDURE:APPENDECTOMY CHOLECYSTECTOMY PROCEDURE:CHOLECYSTECTOMY Medical History Medical History Date Comments Osteoporosis DX:Osteoporosis Arthritis DX:Arthritis GERD (gastroesophageal reflux disease) DX:GERD (gastroesophageal reflux disease) Social History Tobacco Use Types Packs/Day Years Used Date Smoking Tobacco: Never Assessed Comments No Sex and Gender Information Value Date Recorded Sex Assigned at Female 08/10/2024 12:16 PM EST Legal Sex Female 11:40 PM EST Gender Identity Female 08/10/2024 12:16 PM EST Sexual Orientation Straight 08/10/2024 12 :16 PM EST Obstetrics History Last Filed Vital Signs Vital Sign Reading Time Taken Comments Blood Pressure - - Pulse - - Temperature - - Respiratory Rate - - Oxygen Saturation - - Inhaled Oxygen Concentration - - Weight 63.5 kg (140 lb) 09/13/2024 2:12 PM EDT Height 152.4 cm (5') 09/13/2024 2:12 PM EDT Body Mass Index 27.34 09/13/2024 2:12 PM EDT Plan of Treatment Health Maintenance Due Date Last Done Comments Cholesterol Screening (Lipid Panel) 06/04/2022 Colorectal Cancer Screening: Colonoscopy 06/04/2022 Depression Screening 06/04/2022 Falls Risk Assessment 06/04/2022 Hepatitis C Screening 06/04/2022 Medicare Annual Wellness Visit 06/04/2022 Social Influencers of Health Screening 06/04/2022 DTaP,Tdap,and Td Vaccines (2 - Td or Tdap) 08/17/2026 08/17/2016 Osteoporosis Screening (Bone Density Screening) 07/18/2033 07/18/2023, 06/02/2021, 04/23/2019 Pneumococcal Vaccine: 50+ Years Completed 09/09/2018, 09/06/2016, 08/02/2016, Additional history exists Zoster Vaccines Completed 02/12/2019, 10/12/2018 RSV Immunization Adult Patients Completed 04/30/2023 Influenza Vaccine Completed 04/13/2024, , 04/05/2022, Additional history exists COVID-19 Vaccine Completed 04/27/2024, , 04/21/2022, Additional history exists Breast Cancer Screening Discontinued 09/14/19, 07/18/2023, 07/14/2022, Additional history exists HIB Vaccines Aged Out [...] age to complete this topic Meningococcal B Vaccine Aged Out No l onger eligible based on patient's age to complete this topic RSV Immunization Patients Under 20 months Aged Out No longer eligible based on patient's age to complete this topic Varicella Vaccines Aged Out No longer eligible based on patient's age to complete this topic Procedures Procedure Name Priority Date/Time Associated Diagnosis Comments MG MAMMO DIGITAL SCREENING W DENNYS BILAT Routine 09/13/2024 2:23 PM EDT Encounter for screening mammogram for breast cancer JAIME DEXA AXIAL SKELETON Routine 07/18/2023 3:48 PM EST Encounter for screening for osteoporosis from Last 3 Months or Most Recently Relevant to Health Maintenance Results * MG Mammo Digital Screening w Dennys bilat (09/13/2024 2:23 PM EDT) Anatomical Region Laterality Modality Breast Bilateral Mammography 09/13/2024 3:07 PM EDT Impressions 09/13/2024 3:09 PM EDT No evidence of breast malignancy. BI-RADS CATEGORY: 1 - NEGATIVE RECOMMENDATION: Screening bilateral mammogram is recommended in 1 year. Mammo Location: [facility], [address] [place] [address], [address], . -------- FINAL REPORT -------- Dictated By: Geneva Coronel Dictated Date: 09/13/2024 15:07 ET Assigned Physician: Geneva Coronel Reviewed and Electronically Signed By: Geneva Coronel Signed Date: 09/13/2024 15:09 ET Workstation ID: [id number] Transcribed By: Self Edit Transcribed Date: 09/13/2024 15:07 ET Narrative 09/13/2024 3:09 PM EDT CLINICAL: 74 years old, Female, routine annual exam. COMPARISON: 07/18/2023, 07/14/2022, 06/02/2021, 05/27/2020 and 04/23/2019 ?? TECHNIQUE: Bilateral MLO and CC views were obtained digitally with 3-D mammogram (digital breast tomosynthesis). Computer-aided detection was utilized in evaluation of this exam (CAD). FINDINGS: There is no evidence of suspicious mass or architectural distortion. ??No worrisome calcifications are evident. ??There has been no significant change from prior exam(s). ?? BREAST DENSITY: B - There are scattered areas of fibroglandular density. Procedure Note Geneva Coronel MD - 09/13/2024 CLINICAL: 74 years old, Female, routine annual exam. COMPARISON: 07/18/2023, 07/14/2022, 06/02/2021, 05/27/2020 and 04/23/2019 TECHNIQUE: Bilateral MLO and CC views were obtained digitally with 3-Dmammogram (digital breast tomosynthesis). Computer-aided detection wasutilized in evaluation of this exam (CAD). FINDINGS: There is no evidence of suspicious mass or architectural distortion. Noworrisome calcifications are evident. There has been no significantchange from prior exam(s). BREAST DENSITY: B - There are scattered areas of fibroglandular density. IMPRESSION: No evidence of breast malignancy. BI-RADS CATEGORY: 1 - NEGATIVE RECOMMENDATION: Screening bilateral mammogram is recommended in 1 year. Mammo Location: [facility], [address] [place] [address], [address], . -------- FINAL REPORT -------- Dictated By: Geneva Coronel Dictated Date: 09/13/2024 15:07 ET Assigned Physician: Geneva Coronel Reviewed and Electronically Signed By: Geneva Coronel Signed Date: 09/13/2024 15:09 ET Workstation ID: [id number] Transcribed By: Self Edit Transcribed Date: 09/13/2024 15:07 ET us Self Referral Sppl IMG BI PROCEDURES Final Resul t * JAIME DEXA AXIAL SKELETON (07/18/2023 3:48 PM EST) Anatomical Region Laterality Modality Mammography 07/18/2023 2:51 PM EST Narrative 07/18/2023 3:48 PM EST [facility] Diagnostic Imaging Department [address] [place] [address] Patient: ??KIKE NAVARRO ?/Age/Sex: 1950 - 73 - F Unit#: ??[id number] ? Location/Status: ??SPDIMAM/REG CLI ? Mnemonic/Ordering Site: ??MAMDEXAAX/SPMAM Ordering Physician: ??ANALILIA OWENS MD [facility] Dexa Axial Skeleton - 07/18/23 - 1525 Report Status:Signed History: Low estrogen state due to menopause. Personal history of fracture. Height loss. Comparison: 06/02/21 Findings: Bone densitometry is performed utilizing dual energy x-ray absorptiometry (DXA) in the NightstaRxigVer[employer] unit. The lumbar spine and proximal femora [...] 25.9 percent ??Hip 8.1 percent. IMPRESSION: Osteoporosis. [id number] Dictating Physician: ??BAILEY NIETO MD Electronically Signed by: ??BAILEY NIETO MD Dic Date/Time: ??07/18/23 1547 Sign date/Time: ??07/18/23 1548 Procedure Note Bailey Nieto MD - 02/13/2024 [facility] Diagnostic Imaging Department [address] [place], [place] [address] Patient: KIKE NAVARRO/Age/Sex: 1950 - 73 - F Unit#: [id number] Location/Status: SPDIMAM/REG CLI Mnemonic/Ordering Site: MAMDEXAAX/SPMAM Ordering Physician: ANALILIA OWENS MD Jaime Dexa Axial Skeleton - 07/18/23 - 1525 Report Status:Signed History: Low estrogen state due to menopause. Personal history offracture. Height loss. Comparison: 06/02/21 Findings: Bone densitometry is performed utilizing dual energy x-ray absorptiometry(DXA) in the [employer]centra unit. The lumbar spine and proximal femora [...] 25.9 percent Hip 8.1 percent. IMPRESSION: Osteoporosis. 53383 Dictating Physician: BAILEY NIETO MD Electronically Signed by: BAILEY NIETO MD Dic Date/Time: 07/18/23 1547 Sign date/Time: 07/18/23 1548 Analilia Owens MD IMG BI PROCEDURES Final Re sult from Last 3 Months or Most Recently Relevant to Health Maintenance Insurance MEDICARE Care Teams Manager Specialty Relationship Specialty Start Date End Date Darwin Hopper MD [address] [place] [address] [address] [facility] [place] [address] PCP - General Internal Medicine 08/13/19
--- OUTSIDE RECORDS SUMMARY | 2024-10-04 17:25 | XMS_ITS | Patient Health Record ---
Author Organization [facility] Address [address] [facility] [place] [address] Care Team Providers Care Missile Facilities Repairer Name Role Phone Darwin Hopper Primary Care Provider Unavailagustin e Jose Baker Unavailable [phone] Allergies Allergen (clinical drug ingredient) Drug/Non Drug [...] Once a day for 30 day(s) Not-Taking Warne 3 Active Asenapine Maleate 2.5 MG 2 [...] W/U Status Risk Notes Problem Atherosclerosis of ohog[place] arteries of the extremities (723487357242163) Atherosclerosis of [place] artery of both lower extremities, with unspecified presence of clinical manifestation (I70.203) Active confirmed Q7(A), Q8(2B), Q9(1B,2 C) Vital Signs Blood pressure diastolic 80 mm Hg 08/30/2024 Height 5ft in 08/30/2024 Blood pressure systolic 120 mm Hg 08/30/2024 Weight 133 lbs 08/30/2024 BMI 25.97 kg/m2 08/30/2024 Procedures Procedure Date Ordered Date Performed Result Body Sit e 27856-PCZVIRO NAIL, 6 OR MORE 12/07/2023 N/A 84747-UAWA SKIN LESIONS, 2 TO 4 12/07/2023 N/A 39620-HMSIKCA NAIL, 6 OR MORE 03/08/2024 N/A 62084-Eqvjzzpn Plate 03/08/2024 N/A 69342-DQKJ SKIN LESIONS, 2 TO 4 03/08/2024 N/A 48157-XUNGNOW NAIL, 6 OR MORE 06/04/2024 N/A 01068-XFIW SKIN LESIONS, 2 TO 4 06/04/2024 N/A 19001-MMCHSRX NAIL, 6 OR MORE 08/30/2024 N/A 07071 I&D ABSCESS- SIMPLE,SINGLE 08/30/2024 N/A 36644-NOER SKIN LESIONS, 2 TO 4 08/30/2024 N/A Encounters Encounter Location Date Provider Diagnosis [facility] [address] [address] 12/07/2023 Jose Baker Atherosclerosis of [place] artery of both lower extremities, with unspecified presence of clinical manifestation I70.203 ; Tinea unguium B35.1 ; Pain in right toe(s) M79.674 ; Pain in left toe(s) M79.675 ; Pain in left foot M79.672 ; Pain in left ankle and joints of left foot M25.572 ; Bursitis of left foot M77.52 and Hallux valgus (acquired), left foot M20.[address] [address] 03/08/2024 Jose Baker Atherosclerosis of [place]og[place] artery of both lower extremities, with unspecified presence of clinical manifestation I70.203 ; Tinea unguium B35.1 ; Pain in right toe(s) M79.674 ; Pain in left toe(s) M79.675 ; Ingrown nail L60.0 and Xerosis of skin L85.[address] [address] 06/04/2024 Jose Baker Atherosclerosis of [place]og[place] artery of both lower extremities, with unspecified presence of clinical manifestation I70.203 ; Tinea unguium B35.1 ; Pain in right toe(s) M79.674 ; Pain in left toe(s) M79.675 and Xerosis of skin L85.[address] [address] 08/30/2024 Jose Baker Atherosclerosis of ohog[place] artery of both lower extremities, with unspecified presence of clinical manifestation I70.203 ; Tinea unguium B35.1 ; Pain in right toe(s) M79.674 ; Pain in left toe(s) M79.675 and Abscess of toe, right L02.611 [facility] [address] [place] [address] 08/27/2024 Jose Baker Assessments Encounter Date Diagnosis (ICD Code) Assessment Notes Treatment Notes Treatment Clinical Notes Section Notes 12/07/2023 Atherosclerosis of [place] artery of both lower extremities, with unspecified presence of clinical manifestation (ICD-10 - I70.203) 03/08/2024 Tinea unguium (ICD-10 - B35.1) 03/08/2024 Atherosclerosis of [place]og[place] artery of both lower extremities, with unspecified presence of clinical manifestation (ICD-10 - I70.203) 06/04/2024 Tinea unguium (ICD-10 - B35.1) 06/04/2024 Atherosclerosis of [place]og[place] artery of both lower extremities, with unspecified presence of clinical manifestation (ICD-10 - I70.203) 08/30/2024 Tinea unguium (ICD-10 - B35.1) 08/30/2024 Atherosclerosis of ohogami[place] artery of both [...] Treatment Pending Test Test Name Order Date 28774-DTNQTHF NAIL, 6 OR MORE 12/07/2023 38769-IEPBACJ NAIL, 6 OR MORE 03/08/2024 99212-FXMKCPA NAIL, 6 OR MORE 06/04/2024 28393-HCJKQEP NAIL, 6 OR MORE 08/30/2024 56443-Irhrnuhp Plate 03/08/2024 38798 I&D ABSCESS- SIMPLE,SINGLE 025 35997-CMQK SKIN LESIONS, 2 TO 4 03/08/20 24 62356-YXVZ SKIN LESIONS, 2 TO 4 12/07/19 24 31067-FHOW SKIN LESIONS, 2 TO 4 08/31/19 25 12760-ZCVD SKIN LESIONS, 2 TO 4 06/04/20 24 Next Appt Details Provider Name:Jose Jennifer Baker , 11/29/2024 02:45:00 PM, [address] [facility], [facility] [[email or web address] [address], [place], [address], Insurance Providers Payer Name Payer Address Payer Phone Subscriber Number Group Number Insured Name Patient Relationship to Insured Coverage Start Date Coverage End Date Medicare National Govt Sv[employer] [address] [place] [address] [id number] Madison Navarro Self - patient is the insured [employer] [address] [place] [address] [id number] Madison Navarro Self - patient is the [...]
--- OUTSIDE RECORDS SUMMARY | 2024-10-04 17:25 | XMS_ITS ---
Author Organization [facility] Address [address] [place] [address] Care Team Providers Care Advertising Internship Name Role Phone Darwin Hopper Primary Care Provider Jose Velasquez Unavailable [phone] REASON FOR VISIT rs from 08/30/24 Encounters Encounter Location Date Provider Diagnosis [facility] [address] [place] [address] 08/27/2024 Jose Baker Plan Of Treatment Next Appt Details Provider Name:Jose Baker , 11/29/2024 02:45:00 PM, [address] [facility], [address], [address], Progress Notes * Rose NAVARROB:1950 ( 74 yo F)Acc No.[id number]:08/27/2024 Patient:?DEONNicole MOLINAa :1950???Age:74 Y???Sex:Female [address] [place] [address] * true * Date:? Generated for Printi ng/[place]/eTransmitting on:?10/04/2024 05:25 PM EDT
--- OUTSIDE RECORDS SUMMARY | 2024-10-04 17:25 | XMS_ITS ---
Author Organization [employer] Address [address] [address] Care Team Providers Care Business Resiliency Manager Name Role Phone CARROLL SHANNON M.D. Primary Care Provider Analilia Manning Unavailable [phone] Allergies Allergen (clinical drug ingredient) Drug/Non Drug Allergy documented on EMR Reaction Allergy Type Onset Date Status lamotrigine Lamictal Skin Rash Drug Allergy Activ e Motrin Nausea/Vomiting/ Diarrhea Drug Allergy Active estrogens, conjugated ([facility]) Premarin Skin Rash Drug Allergy Active estradiol [...] Active Vitamin D 2000 UNIT Orally Active [place] 3 1000 MG 1 capsule Orally Onc e a day for 30 day(s) Active Calcium 500 MG 1 tablet with meals Orally Twice a day for 30 day(s) Active Vitamin K 100 MCG 1 tablet Orally Once a day for 30 day(s) Active Problems Problem Type SNOMED Code ICD Code Onset Dates Problem Status W/U Status Risk Notes Problem Gynecological examination abnormal (169467460300064) Encounter for gynecological examination (general) (routine) with abnormal findings (Z01.411) Active confirmed Vital Signs Temperature 97.1 degrees Fahrenheit 06/23/20 23 Blood pressure systolic 118 mm Hg 06/23/20 23 Blood pressure diastolic 68 mm Hg 023 Height 60.8 in 06/23/2023 Weight 135 lbs 06/23/2023 BMI 25.67 kg/m2 06/23/2023 Encounters Encounter Location Date Provider Diagnosis [address] [address] 06/23/2023 Analilia Galavn Encounter for screening mammogram for malignant neoplasm [...] Reason: Provider Name:Analilia granda, 07/05/2025 03:00:00 PM, [facility], [address], [place], [address], Progress Notes * VIPIN TRANB:1950 ( 73 yo F)Acc No.[id number]:06/23/2023 PROGRESS NOTES Patient:?CHELSEA KIKE Appointment Provider:?Analilia granda M.D. :1950???Age:73 Y???Sex:Female D ate:06/23/2023 Address:[address] [place] [address] Pcp:CARROLL SHANNON M.D. Subjective: * Chief Complaints: * ???INTERVAL BREAST AND PELVI C * HPI: ???New/Follow-up Patient Consult:? PAT ENTERED MENOPAUSE IN HER 50'S. SHE IS NOT SEXUALLY ACTIVE. 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 HER LAST BMD IN 2020 SHOWED THE [...] stool.?no?genitourinary complaints.?no?skin complaints.? * Medical History:? 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 04/03/15 < 50% density, normal.?LMP and menses?[place].? Control:?None.?Colonoscopy?yes 02/2014.?Bone Density:?06/02/21, 04/23/19, 03/2017.? * OB [...] Tablet 1 tablet Orally Once a dayTaking [place] 3 1000 MG Capsule 1 capsule Orally [...] Galvan M.D. Date:?06/23/2023 Generated for Miranda mariee/Tony/Petronaitting on:?10/04/2024 05:25 PM EDT History and Physical Notes * HPI (History of Present Illness) Category Sub-Category Detail Notes Category Not es New/Follow-up Patient Consult PAT ENTERED MENOPAUSE IN HER 50'S. SHE IS NOT SEXUALLY ACTIVE. SHE IS KNOWN TO BE OSTEOPOROTIC AND SEES DR HARRIS, AN CURTAIN RO[employer] ASSEMBLER AT [facility] [facility] [facility]. HER LAST BMD IN 2020 SHOWED THE [...] General Examination GENERAL APPEARANCE: in no ac algaaciq distress, well developed, well nourished BREASTS: normal, [...]
--- OUTSIDE RECORDS SUMMARY | 2024-10-04 17:25 | XMS_ITS | Clinical Summary ---
Author Organization [facility] Address [address] [place] [address] Care Team Providers Care Range Aide Name Role Phone Darwin Hopper MD Primary Care Provider [phone] Allergies Active Allergy Reactions Criticality Noted Date [...] by mouth. 0 07/30/2015 Active nystatin (MYCOSTATIN) 720303 units tablet Take by mouth. 0 07/30/2015 [...] age to complete this topic Care Teams Range Aide Relationship Specialty Start Date End Date Po, Darwin Wasserman MD [address] [place] [address] [address] [facility] [place], [place] [id number] PCP - General Internal Medicine 08/13/19
--- OUTSIDE RECORDS SUMMARY | 2024-10-04 17:25 | XMS_ITS ---
Author Organization [facility] Address [address] [address] Care Team Providers Care Paper Winder Name Role Phone CARROLL SHANNON M.D. Primary Care Provider Analilia Manning Unavailable [phone] Allergies Allergen (clinical drug ingredient) Drug/Non Drug Allergy documented on EMR Reaction Allergy Type Onset Date Status lamotrigine Lamictal Skin Rash Drug Allergy Activ e Motrin Nausea/Vomiting/ Diarrhea Drug Allergy Active estrogens, conjugated ([facility]) Premarin Skin Rash Drug Allergy Active estradiol Vagifem Skin Rash Drug Allergy Active codeine Codeine Nausea/Vomiting Drug Allergy A ctive Penicillin Nausea/Vomiting Drug Allergy Active REASON FOR VISIT LR MEDICARE PE, Annual BRUSHER WARP Physical 60-85+ Medications Medication SIG (Take, Route, [...] Once a day for 30 day(s) Active [place] 3 1000 MG 1 capsule Orally Onc [...] 06/28/2024 Encounters Encounter Location Date Provider Diagnosis [address] [address] 06/28/2024 Analilia Galvan Encounter for gynecological examination [...] Provider Name:Analilia granda, 07/05/2025 03:00:00 PM, [address] [facility], [address], [place], [address], Progress Notes * VIPIN TRANB:1950 ( 74 yo F)Acc No.[id number]:06/28/2024 PROGRESS NOTES Patient:?KIKE TRAN Appointment Provider:?Analilia garnda M.D. :1950???Age:74 Y???Sex:Female D ate:06/28/2024 Address:[address] [place], [place] [address] Pcp:CARROLL SHANNON M.D. Subjective: * Chief Complaints: * ???LR MEDICARE PEAnnual BRUSHER WARP Physical 60-85+ * HPI: ???New/Follow-up Patient Consult:? [...] adequate calcium via diet and supplementation ?Significant BRUSHER WARP problems:?no significant dish person symptoms or problems * ROS:?general:?no?chest pain.?no?palpitations.?no?headache.?no?cough.?no?shortness of breath.?no?fever.?no?unexplained weight loss.?no?nausea/vomiting.?no?change in bowel movements.?no blood in stool.?no?genitourinary complaints.?no?skin complaints.? * Medical History:? 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 04/03/15 < 50% density, normal.?LMP and menses?[place].? Control:?None.?Colonoscopy?yes 02/2014.?Bone Density:?07/18/23, 06/02/21, 04/23/19, 03/2017.? * [...] Tablet 1 tablet Orally Once a day [place] 3 1000 MG Capsule 1 capsule Orally [...] 1 tablet Orally Once a day Taking [place] 3 1000 MG Capsule 1 capsule Orally [...] * Images: Billing Information: * Visit Code:? 46355 Preventive Care Est Pt. Age 65 and over. * Procedure Codes:? * Sign off status: Completed true * Appointment Provider:?Analilia Galvan M.D. Date:?06/28/2024 Generated for Miranda mariee/Tony/eTjean-pierresmitting on:?10/04/2024 05:25 PM EDT History and Physical [...] ate calcium via diet and supplementation Significant BRUSHER WARP problems:: n o significant dish person symptoms or problems Examination Category Sub-Category Detail [...]
--- OUTSIDE RECORDS SUMMARY | 2024-10-04 17:26 | XMS_ITS ---
Author Organization [employer] Address [address] [facility] [address] [place] [address] Care Team Providers Care Singe Winder Name Role Phone CARROLL SHANNON M.D. Primary Care Provider Analilia Manning Unavailable [phone] REASON FOR VISIT ULTRA - CHECK OVARIES Encounters Encounter Location Date Provider Diagnosis [facility] [address] [place] [address] [address] [place] [address] 04/08/2023 Analilia Galvan Plan Of Treatment Next Appt Details Provider Name:Analilia granda, 07/05/2025 03:00:00 PM, [address] [facility], [address], [place], [address], Progress Notes * VIPIN TRANB:1950 ( 74 yo F)Acc No.[id number]:04/08/2023 PROGRESS NOTES Patient:?HOLLY TRANA Appointment Provider:?Analilia granda M.D. :1950???Age:72 Y???Sex:Female D ate:04/08/2023 Address:[address] [place] [address] , [id number] Pcp:CARROLL SHANNON M.D. Subjective: * Chief Complaints: * ???1. ULTRA - CHECK OVARIES. * Medical History:? Objective: * Vitals:? Assessment: Plan: * Treatment: * Images: Billing Information: * Visit Code:? * Procedure Codes:? * Electronic signature of Jared Galvan MD on 10/04/2024 at 05:25 PM EDT Sign off status: Pending * Appointment Provider:?Analilia Galvan M.D. Date:?04/08/2023 Generated for Miranda mariee/Tony/Rodrigo on:?10/04/2024 05:25 PM EDT
--- OUTSIDE RECORDS SUMMARY | 2024-10-04 17:26 | XMS_ITS ---
Author Organization [facility] Address [address] [place] [address] Care Team Providers Care Dam Operator Name Role Phone Darwin Hopper Primary Care Provider Jose Velasquez Unavailable [phone] Allergies Allergen (clinical drug ingredient) Drug/Non Drug [...] even ing Orally Once a day Active Sa[place]e [place] 3 Active ALPRAZolam 0.5 MG 1 tablet [...] Ordered Date Performed Result Body Sit e 71793-ZCLVZAS NAIL, 6 OR MORE 08/30/2024 N/A 32783 I&D ABSCESS- SIMPLE,SINGLE 08/30/2024 N/A 14884-BOYB SKIN LESIONS, 2 TO 4 08/30/2024 N/A Encounters Encounter Location Date Provider Diagnosis [facility] [place] [address] [place] [address] 08/30/2024 Jose Baker Atherosclerosis of [place] artery of both lower extremities, with unspecified presence of clinical manifestation I70.203 ; Tinea unguium B35.1 ; Pain in right toe(s) M79.674 ; Pain in left toe(s) M79.675 and Abscess of toe, right L02.611 Assessments Encounter Date Diagnosis (ICD Code) Assessment Notes Treatment Notes Treatment Clinical Notes Section Notes 08/30/2024 Atherosclerosis of [place] artery of both lower extremities, with unspecified [...] INSTRUCTIONS.pdf) Pending Test Test Name Order Date 69345-EUKVKOT NAIL, 6 OR MORE 08/30/2024 54780 I&D ABSCESS- SIMPLE,SINGLE 025 00465-NEDA SKIN LESIONS, 2 TO 4 08/31/19 25 Next Appt Details Follow Up: prn, Reason: Provider Name:Jose Baker , 11/29/2024 02:45:00 PM, [address] , [address], [place], [address], Procedure Notes * Category Sub-Category Detail Notes [...] use of a nail nipper and/or dremel-type paint grinder, to a more viable healthy nail [...] to maintain effectiveness in symptomatic relief - 00862 I&D nail abscess Location T5, As per [...] dispensed. Recommended Tylenol or Motrin for pain/discomfort (69339), CIRCULATION: Pt was advised as to the [...] instrumentation by the physician of record - 06143, Q8 Progress Notes * Nicole NAVARRODwainB:1950 ( 74 yo F)Acc No.[id number]:08/30/2024 Progress Note Patient:?Madison NAVARRO Provider:?Jose Baker DPM :1950???Age:74 Y???Sex:Female D ate:08/30/2024 Address:[address] [place], [place] [address] Pcp:Darwin Hopper Subjective: * Chief Complaints: * [...] use: no. ?Marital status: . ?Occupation: Retired, [employer] * Medications:?TakingXanax , N otes to Pharmacist: prnCymbalta ALPRAZolam 0.5 MG Tablet 1 tablet Orally Twice a day Vitamin D Cequa 0.09 % Solution 1 drop into affected eye Ophthalmic every 12 hrs [place]e [place] 3 Simvastatin 5 MG Tablet 1 tablet [...] affected eye Ophthalmic every 12 hrs Taking Sa[place]e [place] 3 Taking Simvastatin 5 MG Tablet 1 [...] Assessment: 1.?Tinea unguium - B35.1???2 .?Atherosclerosis of [place] artery of both lower extremities, with unspecified presence of clinical manifestation - I70.203 (Primary)???Specify :Q8???Notes :Q7(A), Q8(2B), Q9(1B,2C)???3.?Pain in right toe(s) - M79.674???4.?Pain in left toe(s) - M79.675???5.?Abscess of toe, right - L02.611??? Plan: * Treatment: 2.?Tinea unguium?Procedure: 87409-EWAKWSZ NAIL, 6 OR MORE 3.?Abscess of toe, right?Procedure: 80817 I&D ABSCESS- SIMPLE,SINGLE Notes: Patient Educated with: [...] use of a nail nipper and/or dremel-type paint grinder, to a more viable healthy nail [...] to maintain effectiveness in symptomatic relief - 55539.?I&D nail abscess:?Type?Subungual abscess.?Anesthesia?3cc of 1 percent Lidocaine [...] dispensed. Recommended Tylenol or Motrin for pain/discomfort (65499), CIRCULATION: Pt was advised as to the [...] instrumentation by the physician of record - 30778, Q8.? * Procedure Codes:?92774 DEBRI DE NAIL, 6 OR MORE, Modifiers: XS 02757 DRAINAGE OF SKIN ABSCESS, Modifiers: XS , B139156 TRIM SKIN LESIONS, 2 TO 4, Modifiers: XS , Q8 * Follow Up:?prn * Images: * Sign off status: Completed true * Provider:?Jose Baker DPM Date:?2024 Generated for Miranda mariee/Tony/Rodrigo on:?10/04/2024 05:25 PM EDT History and Physical [...]
--- OUTSIDE RECORDS SUMMARY | 2024-10-04 17:26 | XMS_ITS ---
Author Organization [facility] Address [address] [place] [address] Care Team Providers Care Computed Tomography Technologist Name Role Phone Darwin Hopper MD Primary Care Provider Edna Vazquez Jr, Zoltan Haines REASON FOR VISIT r/s appt Encounters Encounter Location Date Provider Diagnosis [facility] [address] [place] [address] 07/11/2024 Zoltan Vazquez Jr Plan Of Treatment Next Appt Details Provider Name:Zoltan turner Jr, 10/22/2024 01:35:00 PM, [address], [address], [place], [address], Progress Notes * KIKE TRANDOB:1950 (74 yo F)Acc No.[id number]:07/11/2024 Patient:?KIKE TRAN :1950???Age:74 Y???Sex:Female Address:[address] [place] [address] [place] [address] * true * Date:? Generated for Printi ng/[place]/eTransmitting on:?10/04/2024 05:26 PM EDT
--- OUTSIDE RECORDS SUMMARY | 2024-10-04 17:27 | XMS_ITS ---
Author Organization [facility] Address [address] [place] [address] Care Team Providers Care Solidworks Designer Name Role Phone Darwin Hopper MD Primary Care Provider Zoltan Grant Jr [phone] REASON FOR VISIT IBS,gerd Encounters Encounter Location Date Provider Diagnosis [facility] [address] [facility] [address] [facility] [address] [place] [address] 07/05/2024 Zoltan Vazquez Jr Plan Of Treatment Next Appt Details Provider Name:Zoltan turner Jr, 10/22/2024 01:35:00 PM, [address] [facility], [address], [place], [address], Progress Notes * KIKE TRANDOB:1950 (74 yo F)Acc No.[id number]:07/05/2024 Progress Notes Patient:?KIKE TRAN Provider:?Zoltan Vazquez MD :1950???Age:74 Y???Sex:Female D ate:07/05/2024 Address:[address] [place] [address] [facility] Pcp:Darwin Hopper MD Subjective: * Chief Complaints: [...] MD Date:?0 07/05/2024 Generated for Miranda mariee/Tony/Rodrigo on:?10/04/2024 05:26 PM EDT
--- OUTSIDE RECORDS SUMMARY | 2024-10-04 17:27 | XMS_ITS ---
Author Organization [facility] Address [address] [place] [address] Care Team Providers Care Pelt Grader Name Role Phone Darwin Hopper Primary Care Provider Jose Velasquez Unavailable [phone] Allergies Allergen (clinical drug ingredient) Drug/Non Drug [...] even ing Orally Once a day Active Leopold 3 Active Cequa 0.09 % 1 drop [...] Ordered Date Performed Result Body Sit e 24929-ODCGERF NAIL, 6 OR MORE 06/04/2024 N/A 21139-YTGB SKIN LESIONS, 2 TO 4 06/04/2024 N/A Encounters Encounter Location Date Provider Diagnosis [facility] [address] [address] 06/04/2024 Jose Baker Atherosclerosis of [place] artery of both lower extremities, with unspecified presence of clinical manifestation I70.203 ; Tinea unguium B35.1 ; Pain in right toe(s) M79.674 ; Pain in left toe(s) M79.675 and Xerosis of skin L85.3 Assessments Encounter Date Diagnosis (ICD Code) Assessment Notes Treatment Notes Treatment Clinical Notes Section Notes 06/04/2024 Atherosclerosis of [place] artery of both lower extremities, with unspecified presence of clinical manifestation (ICD-10 - I70.203) 06/04/2024 Tinea unguium (ICD-10 - B35.1) 06/04/2024 Pain in right toe(s) (ICD-10 - M79.674) 06/04/2024 Pain in left toe(s) (ICD-10 - M79.675) 06/04/2024 Xerosis of skin (ICD-10 - L85.3) Plan Of Treatment Pending Test Test Name Order Date 22001-SGCUNTD NAIL, 6 OR MORE 06/04/2024 81902-IXMT SKIN LESIONS, 2 TO 4 06/04/20 24 Next Appt Details Follow Up: prn, Reason: Provider Name:Jose Baker , 11/29/2024 02:45:00 PM, [address] [facility], [address], [place], [address], Procedure Notes * Category Sub-Category Detail Notes [...] use of a nail nipper and/or dremel-type lens shaper grinder, to a more viable healthy nail [...] to maintain effectiveness in symptomatic relief - 67663 Keratoma Treatment Parring or Cutting o f [...] tissue nippers, and/or power dremel instrumentation - 14236, Q8 Progress Notes * DEONJESSE RoseB:1950 ( 74 yo F)Acc No.[id number]:06/04/2024 Progress Note Patient:?Madison NAVARRO Provider:?Jose Baker DPM :1950???Age:74 Y???Sex:Female D ate:06/04/2024 Address:[address] [facility] [place] Pcp:Darwin Hopper Subjective: * Chief Complaints: * [...] into affected eye Ophthalmic every 12 hrs Leopold 3 Simvastatin 5 MG Tablet 1 tablet [...] affected eye Ophthalmic every 12 hrs Taking Leopold 3 Taking Simvastatin 5 MG Tablet 1 [...] Assessment: 1.?Tinea unguium - B35.1???2 .?Atherosclerosis of [place] artery of both lower extremities, with unspecified presence of clinical manifestation - I70.203 (Primary)???3.?Pain in right toe(s) - M79.674???4.?Pain in left toe(s) - M79.675 ??5.?Xerosis of skin - L85.3???Specify :Acute problem, Stable Response to treatment - Improvement??? Plan: * Treatment: 2.?Tinea unguium?Procedure: 54543-OTFIHBS NAIL, 6 OR MORE * Procedures:?Debride Nail [...] use of a nail nipper and/or dremel-type lens shaper grinder, to a more viable healthy nail [...] to maintain effectiveness in symptomatic relief - 83174.?Keratoma Treatment:?Parring or Cutting of Benign Hyperkeratotic Lesion(s)?(-56) [...] tissue nippers, and/or power dremel instrumentation - 65563, Q8.? * Procedure Codes:?27058 DEBRI DE NAIL, 6 OR MORE, Modifiers: XS 39123 TRIM SKIN LESIONS, 2 TO 4, Modifiers: [...] Baker DPM Date:?2023 Generated for Miranda mariee/Tony/Rodrigo on:?10/04/2024 05:26 PM EDT History and Physical Notes * [...]
--- OUTSIDE RECORDS SUMMARY | 2024-10-04 17:27 | XMS_ITS | Patient Health Record ---
Author Organization [facility] Address [address] [place] [address] Care Team Providers Care Radar Engineer Name Role Phone CARROLL SHANNON M.D. Primary Care Provider Analilia Manning Unavailable [phone] Allergies Allergen (clinical drug ingredient) Drug/Non Drug Allergy documented on EMR Reaction Allergy Type Onset Date Status lamotrigine Lamictal Skin Rash Drug Allergy Activ e Motrin Nausea/Vomiting/ Diarrhea Drug Allergy Active estrogens, conjugated (PRISON) Premarin Skin Rash Drug Allergy Active estradiol [...] even ing Orally Once a day Active [place] 3 1000 MG 1 capsule Orally Onc [...] Status Risk Notes Problem Gynecological examination abnormal (282664296640494) Encounter for gynecological examination (general) (routine) with abnormal findings (Z01.411) Active confirmed Problem Postmenopausal atrophic vaginitis (59750157) Postmenopausal atrophic vaginitis (N95.2) Active confirmed Problem Age-related osteoporosis (383383751) Age-related osteoporosis without current pathological fracture (M81.0) Active confirmed Problem Urinary incontinence (404304730) Unspecified urinary incontinence (R32) Active confirmed Problem Constipation (42127806) Constipation, unspecified (K59.00) Active confirmed Problem Anxiety state (671887968) Anxiety state, unspecified (300.00) Active confirmed Major Problem Depressive disorder (88993896) Depressive disorder, not elsewhere classified (311) Active confirmed Major Problem Dyspareunia (38616788) Dyspareunia (625.0) Active confirmed Diag Problem Female stress incontinence (90046568) Female stress incontinence (625.6) Active confirmed Major Problem Menopausal symptom (13970339) Symptomatic menopausal or female climacteric states (627.2) Active confirmed Major Problem Postmenopausal atrophic vaginitis (79421963) Postmenopausal atrophic vaginitis (627.3) Active confirmed Diag Problem Osteoporosis (06635902) Unspecified osteoporosis (733.00) Active confirmed Problem Gynecological examination normal (699924768501505) Routine gynecological examination (V72.31) Active confirmed Major Problem Screening for malignant neoplasm of colon (124062706) Special screening for malignant neoplasms, colon (V76.51) Active confirmed Major Vital Signs Temperature 97.4 degrees Fahrenheit 06/28/2024 Blood pressure diastolic 74 mm Hg 06/28/2024 Height 60.8 in 06/28/2024 Blood pressure systolic 108 mm Hg 06/28/2024 Weight 140 lbs 06/28/2024 BMI 26.62 kg/m2 06/28/2024 Encounters Encounter Location Date Provider Diagnosis [address] [place] [address] 06/28/2024 Analilia Cole Encounter for gynecological examination [...] (>29YR)(SCRN) 03/27/2018 BONE DENSITY 06/13/2020 BONE DENSITY 02/05/2015 BONE DENSITY 06/23/2023 BONE DENSITY 06/16/2022 MM Digital Mammo Screening 06/28/2024 MM Digital Mammo Screening 02/05/2015 MM Digital Mammo Screening 02/25/2016 MM Digital Mammo Screening 06/07/2019 MM Digital Mammo Screening 06/13/2020 MM Digital Mammo Screening 06/23/2023 MM Digital Mammo Screening 06/15/2021 MM Digital Mammo Screening 06/16/2022 Next Appt Details Provider Name:Analilia granda, 07/05/2025 03:00:00 PM, [address], [address], [place], [address], Insurance Providers Payer Name Payer Address Payer Phone Subscriber Number Group Number Insured Name Patient Relationship to Insured Coverage Start Date Coverage End Date MEDICARE [address] [place], [place] [id number] DEONHOLLY MOLINAA Self - patient is the insured MEDEX [address] [place] [address] [id number] DEONOHLLY MOLINAA Self - patient is the insured [...]
--- OUTSIDE RECORDS SUMMARY | 2024-10-04 17:27 | XMS_ITS | Patient Health Record ---
Author Organization [facility] Address [address] [place] [address] Care Team Providers Care Doll Surgeon Name Role Phone Po Darwin GONZALES [...] Multi Vitamin/Minerals - 1 Orally QD Active [place] 3 1000 MG 1 AND half capsule [...] Problem Status W/U Status Risk Notes Problem 995734850 Left lower quadr ant pain (R10.32) Active confirmed Problem 69269763 Functional diarr hea (K59.1) Active confirmed Problem 392710552 Dorsalgia, unspecified (M54.9) Active confirmed Problem 568381614 Elevated LFTs (R79.89) Active confirmed Problem 341290723 Gastroesophageal reflux disease without esophagitis (K21.9) Active confirmed Problem 23551589 Dysphagia, unspecified type (R13.10) Active confirmed Problem 674595238 Abdominal pain, LLQ (R10.32) Active confirmed Problem 707504886 Irritable bowel syndrome with constipation (K58.1) Active confirmed Problem 734094068 FH: colon polyps (Z83.71) Active confirmed Problem 717090413 LLQ pain (R10.32) Active confirmed Encounters Encounter Location Date Provider Diagnosis [facility] [address] [place] [address] 07/11/2024 Zoltan Vazquez Jr Plan Of Treatment Pending Test Test Name Order Date LIVER PROFILE 07/01/2022 XR GI SERIES 09/22/2017 Future Test Test Name Order Date COLONOSCOPY 12/10/2013 UPPER GI ENDOSCOPY 09/22/2017 COLONOSCOPY 05/08/2020 Next Appt Details Provider Name:Zoltan turner Jr, 10/22/2024 01:35:00 PM, [address], [address], [place], [address], Insurance Providers Payer Name Payer Address Payer Phone Subscriber Number Group Number Insured Name Patient Relationship to Insured Coverage Start Date Coverage End Date MEDICARE OF [place] [address] [place] [address] [phone] [id number] DEONJESSEKIKE Self - patient is the insured MEDEX ATTN CLAIMS [address] [place] [address] [phone] [id number] DEONJESSEKIKE Self - patient is the insured [...]
--- OUTSIDE RECORDS SUMMARY | 2024-10-04 17:27 | XMS_ITS ---
Author Organization [facility] Address [address] [place] [address] Care Team Providers Care Waste Removalist Name Role Phone Darwin Hopper MD Primary Care Provider Zoltan Grant Jr [phone] REASON FOR VISIT IBS,gerd Encounters Encounter Location Date Provider Diagnosis [facility] [address] [place] [address] 07/12/2024 Zoltan Vazquez Jr Plan Of Treatment Next Appt Details Provider Name:Zoltan turner Jr, 10/22/2024 01:35:00 PM, [address], [address], [place], [address], Progress Notes * KIKE TRANDOB:1950 (74 yo F)Acc No.[id number]:07/12/2024 Progress Notes Patient:?KIKE TRAN Provider:?Zoltan Vazquez MD :1950???Age:74 Y???Sex:Female D ate:07/12/2024 Address:[address] [place] [address] [facility] Pcp:Darwin Hopper MD Subjective: * Chief Complaints: [...] MD Date:?0 07/12/2024 Generated for Miranda mariee/Tony/Rodrigo on:?10/04/2024 05:26 PM EDT
== END 2024-10-04 16:44 | disposition home or self-care (01) ==
LOC: HO.HMCH 14:49
PROVIDERS: PCP Internal Medicine; Visit Provider Internal Medicine
DX: Z00.00 Encounter for general adult medical examination without abnormal findings (principal); M35.00 Sjogren syndrome, unspecified; K21.9 Gastro-esophageal reflux disease without esophagitis; E78.00 Pure hypercholesterolemia, unspecified; N20.0 Calculus of kidney; F41.1 Generalized anxiety disorder; M81.0 Age-related osteoporosis without current pathological fracture

== ENCOUNTER → 2024-10-04 14:48 | Outpatient (BNVA) | payer MEDICARE, SELFPAY | PROVIDERS: PCP Internal Medicine; Visit Provider Internal Medicine | DX: Z00.01 Encounter for general adult medical examination with abnormal findings (principal); M35.00 Sjogren syndrome, unspecified; K21.9 Gastro-esophageal reflux disease without esophagitis; E78.00 Pure hypercholesterolemia, unspecified; N20.0 Calculus of kidney; F41.1 Generalized anxiety disorder; M81.0 Age-related osteoporosis without current pathological fracture | CPT/HCPCS: 96127 ==

== ENCOUNTER 2024-12-04 12:39 | Outpatient (AMB) | payer MEDICARE, SELFPAY ==
[2024-12-04 12:41] VITALS: BP 118/62; PULSE 105; TEMP 36.1; O2SAT 96; BMI 23.7
--- NOTE | 2024-12-04 12:41 | A.OFFPC_ITS ---
Vital Signs 12/04/24 12:41 Height 5 ft 1 in Weight 125 lb 8 oz BMI 23.7 BP 118/62 Blood Pressure Location Lt brachial Position Sitting Pulse 105 H Pulse Source Pulse Oximeter Temp 97.0 F Temp Source Temporal Artery Scan Pulse Oximetry (%) 96 Oxygen Delivery Method Room Air Intake Visit Reasons: feet swelling [facility] f/u Allergies lamotrigine [From LAMICTAL] Allergy (Intermediate, Verified 12/04/24 12:45) RASH Sulfa (Sulfonamide Antibiotics) [SULFA (SULFONAMIDE ANTIBIOTICS)] Allergy (Intermediate, Verified 12/04/24 12:45) UNKNOWN, upset stomach codeine [CODEINE] Allergy (Mild, Verified 12/04/24 12:45) NAUSEA & VOMITING, nausea and vomiting penicillin V [PENICILLIN V] Allergy (Mild, Verified 12/04/24 12:45) NAUSEA & VOMITING, sick to stomach, nausea and vomiting ciprofloxacin [Cipro] Allergy (Unknown, Verified 12/04/24 12:45) sick to stomach ibuprofen [From Motrin] Adverse Reaction (Verified 12/04/24 12:45) sick to stomach, nausea and vomiting Medication List - Last Reconciled 12/04/24 by Darwin Hopper MD alendronate 70 mg PO QWEEK alprazolam 0.5 mg PO BID PRN calcium carb and citrat-mag ox 200 mg calcium- 50 mg tabs PO cholecalciferol (vitamin D3) 25 mcg PO DAILY ciclopirox 1% topical cyclosporine 0.09% (Cequa) 1 drp ophthalmic (eye) Q12H duloxetine 120 mg PO DAILY multivitamin 1 tab PO DAILY omega-3 fatty acids 1,000 mg PO DAILY omeprazole 20 mg PO DAILY pyridoxine (vitamin B6) 100 mg PO DAILY 90 days simvastatin 5 mg PO BEDTIME vitamin K2 45 mcg PO DAILY Tobacco use date assessed: 12/04/24 Fall risk assessment: 1 Fall in past year Last assessed Fall Risk: 12/04/24 Dental Screening Dental Screen Date: 12/04/24 Did you have a dental visit in the last 12 months?: Yes Did you have a dental problem in the last 6 months where you did not have access to dental care?: No Was dental information given to patient?: Patient has dentist [facility] Medical History Post-nasal drip Bronchitis Numbness in feet Impacted cerumen of left ear Hoarseness Stye Hoarseness Hip pain, right Lower back pain Colon cancer screening Acute sinusitis Trigger finger of right hand Sjogren's syndrome Bile salt-induced diarrhea Osteoarthritis Irritable bowel syndrome GERD (gastroesophageal reflux disease) Essential tremor Hypercholesterolemia Calculus of left kidney Constipation Cholecystectomy planned Right knee meniscal tear Hepatitis Osteoporosis Umbilical hernia History of duodenal ulcer Liver hemangioma Surgical History Hx of tonsillectomy History of cholecystectomy Cataract History of knee surgery History of eyelid surgery H/O adenoidectomy History of appendectomy Family History Father Hypertension Prostate cancer Mother Hypertension Diabetes Dementia Maternal Aunt Gastric cancer Paternal Aunt Gastric cancer Ovarian cancer Paternal Uncle Myocardial infarction Social History Household Members: Spouse Housing: House Do you presently have visiting nurse or other home services: No Alcohol intake: never Patient Tobacco Use Status: Never used Tobacco e-Cigarette/Vaping Use: Never Used Second Hand Smoke Exposure: No service: No Current occupational status: retired Cognitive needs: No Hearing needs: No Vision needs: Yes Questionnaire PHQ-9 Over the last 2 weeks, how often have you been bothered by any of the following problems? 1. Little interest or pleasure in doing things: more than half the days 2. Feeling down, depressed, or hopeless: several days 3. Trouble falling or staying asleep, or sleeping too much: not at all 4. Feeling tired or having little energy: several days 5. Poor appetite or overeating: more than half the days 6. Feeling bad about yourself - or that you are a failure or have let yourself or your family down: not at all 7. Trouble concentrating on things, such as reading the newspaper or watching television: not at all 8. Moving or speaking so slowly that other people could have noticed. Or the opposite - being so fidgety or restless that you have been moving around a lot more than usual: not at all 9. Thoughts that you would be better off or of hurting yourself in some way: not at all Total score: 6 Source: Developed by Drs. Benny Marcano, Obi Alejo and colleagues, with an educational garcia from [employer]. Thrive Questionnaire Date Thrive assessed: 12/02/24 I am a: Patient What is your living situation today?: I have a steady place to live Within the past 12 months, did the food you bought not last and you didn't have the money to get more?: Never true Within the past 12 months, did you worry whether your food would run out before you got money to buy more?: Never true Do you have trouble paying for medicines?: No Do you have trouble getting transportation to medical appointments?: No Do you have trouble paying your heating and electricity bill?: No Do you have trouble taking care of your child, family member or friend?: Yes Do you have trouble with day-to-day activities such as bathing, preparing meals, shopping, managing finances, etc.?: No Are you currently unemployed and looking for a job?: No Are you interested in more education?: No Please select the resources that you would like help with: Care for elder or disabled and Daily support Currently or been in a relationship where the following occur: No concerns reported THRIVE Score: 0 AUDIT C Alcohol Use Questionnaire (AUDIT-C) 1. How often do you have a drink containing alcohol?: Never 3. How often do you have six or more drinks on one occasion?: Never Total Score: 0 BENITA-7 AMB Questionnaire BENITA-7 Date BENITA - 7 assessed: 12/04/24 Feeling nervous, anxious, or on edge: 1 = Several days Not being able to stop or control worryin = Several days Worrying too much about different things: 1 = Several days Trouble relaxin = Not at all Being so restless that it is hard to sit still: 0 = Not at all Becoming easily annoyed or irritable: 1 = Several days Feeling afraid as if something awful might happen: 0 = Not at all Total BENITA-7 score (0-4 normal; 5-9 mild; 10-14 moderate; 15-21 severe): 4 Source: Developed by Drs. Benny Marcano, Gina Gonzalez, Obi Guajardo and colleagues, with an educational garcia from [employer]. Physical exam (Primary Care) Vital Signs: Last Vital Signs Temp 97.0 F 12/04/24 12:41 Pulse 105 H 12/04/24 12:41 BP 118/62 12/04/24 12:41 Pulse Ox 96 12/04/24 12:41 Oxygen Delivery Method Room Air 12/04/24 12:41 BMI result Body Mass Index 23.7 Tobacco/Smoking Status: Tobacco use Status Tobacco use date assessed 12/04/24 12/04/24 12:48 Patient Tobacco Use Status Never used Tobacco 12/04/24 12:48 e-Cigarette/Vaping Use Never Used 12/04/24 12:48 PHQ-9: PHQ-9 Score PHQ-9: Total score 6 12/04/24 13:03 Thrive Assessment: Date of Thrive Assessment Date Thrive assessed 12/02/24 12/04/24 12:48 Currently or been in a relationship where the following occur: No concerns reported Const General: alert; No acute distress Eyes Conjunctivae: conjunctivae normal Resp Auscultation: clear to auscultation bilaterally Cardio Rate: regular rate Rhythm: regular rhythm GI Inspection: Yes normal to inspection Extrem General: Yes normal to inspection and No edema Coding Level of Care Code Est Pt Level 4 (75891) Complex EM visit Add On G2211 Diagnoses Generalized anxiety disorder F41.1 Slow transit constipation K59.01 Constipation type: slow transit constipation Hypercholesterolemia E78.00 Gastroesophageal reflux disease without esophagitis K21.9 Esophagitis presence: without esophagitis Sjogren's syndrome, with unspecified organ involvement M35.00 Sjogren's organ involvement: unspecified organ involvement Osteoporosis M81.0 Hypokalemia E87.6 Hypophosphatemia E83.39 Peripheral vascular disease I73.9 Assessment & Plan Assessment & Plan (1) Generalized anxiety disorder: Comment: Dr. Cortes Q2-3 months and counselling Q 2-3 weeks Code(s): F41.1 - Generalized anxiety disorder Category: Medical Plan: Continue with counseling and therapy (2) Constipation: Code(s): K59.00 - Constipation, unspecified Category: Medical Qualifiers: Constipation type: slow transit constipation Qualified Code(s): K59.01 - Slow transit constipation Plan: Three rules for constipation 1. Diet need to have a high fiber diet less of meat 2. Increase oral fluids 3. Exercise (3) Hypercholesterolemia: Code(s): E78.00 - Pure hypercholesterolemia, unspecified Category: Medical Plan: Avoid fried foods, chicken skin, eggs, butter margarine, pastries and meat. Be it pork or beef they have a lot of cholesterol on simvastatin 5 mg at bedtime (4) GERD (gastroesophageal reflux disease): Code(s): K21.9 - Gastro-esophageal reflux disease without esophagitis Category: Medical Qualifiers: Esophagitis presence: without esophagitis Qualified Code(s): K21.9 - Gastro-esophageal reflux disease without esophagitis Plan: Avoid the foods that causes that usually spicy foods, tomato products, juices, coffee, soda and foods that your sensitive to. After eating do not lie down, allow 3-4 hours before in lie down. And keep the head of bed above 30 degrees to avoid the acid from going up. (5) Sjogren's syndrome: Code(s): M35.00 - Sjogren syndrome, unspecified Category: Medical Qualifiers: Sjogren's organ involvement: unspecified organ involvement Qualified Code(s): M35.00 - Sicca syndrome, unspecified Plan: Patient was referred to rheumatology but schedules have been tight. (6) Osteoporosis: Comment: 2020 Code(s): M81.0 - Age-related osteoporosis without current pathological fracture Category: Medical Plan: Discussed about calcium and vitamin-D and keeping active and reminded about bone density. (7) Hypokalemia: Code(s): E87.6 - Hypokalemia Category: Medical (8) Hypophosphatemia: Code(s): E83.39 - Other disorders of phosphorus metabolism Category: Medical (9) Peripheral vascular disease: Code(s): I73.9 - Peripheral vascular disease, unspecified Category: Medical Plan: elevate legs, support stockings Plan History of Present Illness The patient is a 74-year-old female presenting with a follow-up visit for man agement of her chronic health conditions. Her medical history includes Sj?gren's syndrome, hypercholesterolemia, GERD, nephrolithiasis, osteoporosis, generalized anxiety disorder, and impaired glucose tolerance. She reports right foot swelling that becomes more pronounced at night, without an apparent cause linked to her current medications. Her dietary patterns have been inconsistent, leading to stress and potentially affecting her potassium levels, which were confirmed as low. Previous laboratory findings included an LDL of 101 mg/dL since June and elevated blood glucose and liver enzymes in August, without significant changes. Despite ongoing treatment for GERD with omeprazole, she continues to experience constipation and is on Metamucil as recommended by her teacher education instructor. Health Maintenance - Encouraged maintaining adequate calcium and vitamin D intake. - Discussed regular physical activity for osteoporosis management. - Last bone density scan conducted in May 2023. - Colon screening last performed in 2014; patient reminded of its importance. - Mammogram completed in August 2024. - Discussion about weight management and maintaining a healthy body mass index. Social History - Nutritional intake is inconsistent, with meals often skipped leading to reduced appetite. - Stress due to caretaking responsibilities for Jos, leading to feeling overwhelmed. - Patient expressed difficulty in accessing home health assistance. Review of Systems - Cardiovascular: Denies chest pain or palpitations. - Gastrointestinal: Reports constipation; denies diarrhea. - Musculoskeletal: Reports right foot swelling. - Psychological: Reports feeling overwhelmed and stressed. Physical Exam - Musculoskeletal- Right foot swelling observed, particularly noted at night. Results - Labs: Blood glucose elevated at 110 mg/dL, mildly elevated liver function tests, low potassium levels reported at urgent care. - Tests: Cholesterol panel from June showed LDL 101 mg/dL. Plan In today's visit, I emphasized maintaining calcium and vitamin D intake for osteoporosis management, along with encouraging regular physical activity. The patient's cholesterol levels will continue to be managed with simvastatin, and she was reminded to control dietary intake to manage glucose levels. We addressed the right foot swelling, recommending she lift her feet and wear support stockings. I referred the patient to a dietitian to assist with meal planning and nutritional support. We plan to repeat blood tests to monitor her potassium levels. I advised maintaining regular follow-ups for her various chronic conditions to ensure comprehensive care. Patient was informed and verbally consented to the use of an ambient scribe for clinic note documentation during this visit. Discussion Notes Today we discussed the patient's ongoing management for her multiple chronic conditions. I advised on maintaining adequate calcium and vitamin D intake to support bone health and recommended regular physical activity to reduce osteoporosis risk. We reviewed the benefits of simvastatin in managing hypercholesterolemia and emphasized monitoring her diet due to elevated glucose levels. For her right foot swelling, I recommended elevating her feet and wearing support stockings, which can help improve circulation. We addressed the challenges in maintaining a balanced diet and suggested a dietitian referral for better nutritional guidance. I instructed her on the importance of regular laboratory monitoring, particularly her potassium levels, due to previous low readings. We discussed the need for regular follow-up visits to ensure ongoing management of all conditions. Patient Instructions - Take calcium and vitamin D supplements daily. - Engage in regular exercise to help with bone health. - Continue taking simvastatin 5 mg at bedtime as prescribed. - Elevate your feet when sitting and wear support stockings for foot swelling. - Follow up with a dietitian for meal planning to improve your diet. - Ensure you drink plenty of fluids throughout the day. - Monitor blood glucose levels regularly and maintain a healthy diet. - Schedule and attend follow-up appointments for ongoing health evaluation. Orders: Orders Comprehensive Met. Panel Today E87.6 - Hypokalemia Complete Blood Count Auto Diff Today E87.6 - Hypokalemia Free T4 (Free Thyroxine) Today E87.6 - Hypokalemia Vitamin B12 and Folate Today E87.6 - Hypokalemia Thyroid Stimulating Hormone Today E87.6 - Hypokalemia Medications: New compress.stocking,knee,reg,med As directed 20-30 mm HG 12 ea 0RF I73.9 - Peripheral vascular disease, unspecified
== END 2024-12-04 13:20 | disposition home or self-care (01) ==
LOC: HO.HMCH 12:39
PROVIDERS: PCP Internal Medicine; Visit Provider Internal Medicine
DX: F41.1 Generalized anxiety disorder (principal); K59.01 Slow transit constipation; E78.00 Pure hypercholesterolemia, unspecified; K21.9 Gastro-esophageal reflux disease without esophagitis; M35.00 Sjogren syndrome, unspecified; M81.0 Age-related osteoporosis without current pathological fracture; E87.6 Hypokalemia; E83.39 Other disorders of phosphorus metabolism; I73.9 Peripheral vascular disease, unspecified

== ENCOUNTER 2024-12-04 12:39 | Outpatient (REF) | payer MEDICARE, SELFPAY ==
[2024-12-04 14:03] LABS: MANUAL DIFF FLAG NO
[2024-12-04 14:53] LABS: Basophils Percent Auto 0.4 % (0-2); Eosinophils Absolute Auto 0.2 X10*3/uL (0.0-0.4); Eosinophils Percent Auto 3.3 % (0-4); Hematocrit 39.4 % (37.0-47.0); Hemoglobin 13.1 g/dl (12.0-16.0); Imm Gran Abs Auto 0.03 X10*3/uL (0.00-0.03); Imm Gran Pct Auto 0.6 % (0.0-0.4); Lymphocytes Absolute Auto 0.8 X10*3/uL (1.2-4.9); Lymphocytes Percent Auto 16.1 % (20-40); Mean Corpuscular HGB Conc 33.2 g/dl (31.0-35.0); Mean Corpuscular Hemoglobin 32.6 pg (27.0-33.0); Mean Platelet Volume 9.7 fL (9.4-12.3); Monocytes Absolute Auto 0.5 X10*3/uL (0.1-1.2); Monocytes Percent Auto 9.8 % (2-11); Neutrophils Absolute Auto 3.6 x10*3/uL (2.0-8.3); Neutrophils Percent Auto 69.8 % (45-73); Platelet Count 223 X10*3/uL (160-400); Red Blood Count 4.02 X10*6/uL (4.20-5.50); Red Cell Distribution Width 13.3 % (11.0-16.0); White Blood Count 5.1 X10*3/uL (4.8-10.8)
[2024-12-04 15:44] LABS: Alanine Aminotransferase 31 U/L (0-31); Alkaline Phosphatase 49 U/L (39-117); Anion Gap 10 (12-20); Aspartate Amino Transferase 30 U/L (5-31); Bilirubin Total 0.3 mg/dL (0.0-1.0); Blood Urea Nitrogen 16 mg/dL (9-16); Calcium 9.2 mg/dL (8.4-10.2); Carbon Dioxide 30 mmol/L (22-29); Chloride 107 mmol/L (96-108); Estimated Glomerular Filt Rate > 60; Glucose Random 91 mg/dL (60-115); Potassium 3.5 mmol/L (3.3-5.1); Sodium 143 mmol/L (135-145); Total Protein 6.5 g/dL (6.5-8.0)
[2024-12-04 15:45] LABS: Thyroid Stimulating Hormone 1.25 uIU/mL (0.32-4.0)
[2024-12-04 16:00] LABS: Folate 14.8 ng/mL (> or = 4.0); Vitamin B12 664 pg/mL (200-900)
== END 2024-12-04 12:40 | disposition home or self-care (01) ==
LOC: HO.LAB 12:39
PROVIDERS: PCP Internal Medicine; Visit Provider Internal Medicine
DX: F41.1 Generalized anxiety disorder (principal); K59.01 Slow transit constipation; E78.00 Pure hypercholesterolemia, unspecified; K21.9 Gastro-esophageal reflux disease without esophagitis; M35.00 Sjogren syndrome, unspecified; M81.0 Age-related osteoporosis without current pathological fracture; E87.6 Hypokalemia; E83.39 Other disorders of phosphorus metabolism; I73.9 Peripheral vascular disease, unspecified
CPT/HCPCS: 36415; 80053; 82607; 82746; 84439; 84443; 85025; 99212

== ENCOUNTER 2024-12-12 15:54 | Outpatient (REF) | payer MEDICARE, SELFPAY ==
--- NOTE | ~2024-12-12 | XR_ITS ---
CLINICAL HISTORY: M25.571 - Pain in right ankle and joints of right foot 3 view right ankle Comparison: None provided Findings: Bones intact. No dislocations. No significant arthritic change or erosions. Small plantar calcaneal spur. No ankle effusion. No radiopaque foreign body. IMPRESSION: 1. No acute findings. This document has been electronically signed by: Kennedi Moore MD on 12/13/2024 08:59:59
--- OUTSIDE RECORDS SUMMARY | 2024-12-12 17:58 | XMS_ITS | Clinical Summary ---
Author Organization [facility] Address [address] [place] [address] Phone Care Team Providers Care Police Matron Name Role Phone Darwin Hopper MD Primary Care Provider [phone] Encounters Date Type Department Care Team Description 09/13/2024 1:56 PM EDT - 09/13/2024 11:59 PM EDT Hospital [facility] [address] [address] Encounter for screening mammogram for [...] of Health Screening 06/04/2022 COVID-19 Vaccine ( season) 2024 04/27/2024, 03/25/2023, 04/21/2022, Additional history exists DTaP,Tdap,and Td Vaccines (2 - Td or Tdap) 08/17/2026 08/17/2016 Osteoporosis Screening (Bone Density Screening) 07/18/2033 07/18/2023, 06/02/2021, 04/23/2019 Pneumococcal Vaccine: 50+ Years Completed 09/09/2018, 09/06/2016, 08/02/2016, Additional history exists Zoster Vaccines Completed 02/12/2019, 10/12/2018 RSV Immunization Adult Patients Completed 04/30/2023 Influenza Vaccine Completed 04/13/2024, , 04/05/2022, Additional history exists Breast Cancer Screening Discontinued [...] year. Mammo Location: [facility], [address] [place] [address], [address], . -------- FINAL REPORT -------- Dictated By: Geneva Coronel Dictated Date: 09/13/2024 15:07 ET Assigned Physician: Geneva Coronel Reviewed and Electronically Signed By: Geneva Coronel Signed Date: 09/13/2024 15:09 ET Workstation ID: [id number] Transcribed By: Self Edit Transcribed Date: 09/13/2024 [...] evidence of suspicious mass or architectural distortion. No worrisome calcifications are evident. There has been no significant change from prior exam(s). BREAST DENSITY: B - [...] year. Mammo Location: [facility], [address] [place] [address], [address], . -------- FINAL REPORT -------- Dictated By: Geneva Coronel Dictated Date: 09/13/2024 15:07 ET Assigned Physician: Geneva Coronel Reviewed and Electronically Signed By: Geneva Coronel Signed Date: 09/13/2024 15:09 ET Workstation ID: [id number] Transcribed By: Self Edit Transcribed Date: 09/13/2024 15:07 ET us Self Referral Sppl IMG BI PROCEDURES Final Resul t * JAIME DEXA AXIAL SKELETON (07/18/2023 3:48 PM EST) Anatomical Region Laterality Modality Mammography 07/18/2023 2:51 PM EST Narrative 07/18/2023 3:48 PM EST [facility] Diagnostic Imaging Department [address] [place] [id number] Patient: KIKE NAVARRO Bee Sanchez/Age/Sex: 1950 - 73 - F Unit#: [id number] Location/Status: [facility] CLI Mnemonic/Ordering Site: MAMDEXAAX/SPMAM Ordering Physician: ANALILIA OWENS MD [facility] Dexa Axial Skeleton - 07/18/23 - 1525 Report Status:Signed History: Low estrogen state due to menopause. Personal history of fracture. Height loss. Comparison: 06/02/21 Findings: Bone densitometry is performed utilizing dual energy x-ray absorptiometry (DXA) in the AMVONET unit. The lumbar spine and proximal femora are evaluated in the AP projection. The FRAX questionaire was completed. The results indicate osteoporosis, with a right femoral neck T-score of -2.6. The Z score is -0.6, indicating bone mineral density within the range of normal for age. There has been no statistically significant change. The detailed DEXA report will be mailed to the referring physician's office. DualFemur FRAX: 10-year Probability of Fracture: Major Osteoporotic 25.9 percent Hip 8.1 percent. IMPRESSION: Osteoporosis. [id number] Dictating Physician: BAILEY NIETO MD Electronically Signed by: BAILEY NIETO MD Dic Date/Time: 07/18/231546 Sign date/Time: 07/18/23 154 Procedure Note Bailey Nieto MD - 02/13/2024 [facility] Diagnostic Imaging Department [address] [place] [address] Patient: KIKE NAVARRO Bee ChaconB./Age/Sex: 1950 - 73 - F Unit#: [id number] Location/Status: [facility] CLI Mnemonic/Ordering Site: MAMDEXAAX/SPMAM Ordering Physician: ANALILIA OWENS MD Jaime Dexa Axial Skeleton - 07/18/23 - 1525 Report Status:Signed History: Low estrogen state due to menopause. Personal history offracture. Height loss. Comparison: 06/02/21 Findings: Bone densitometry is performed utilizing dual energy x-ray absorptiometry(DXA) in the AMVONET unit. The lumbar spine and proximal femora [...] 25.9 percent Hip 8.1 percent. IMPRESSION: Osteoporosis. [id number] Dictating Physician: BAILEY NIETO MD Electronically Signed by: BAILEY NIETO MD Dic Date/Time: 07/18/23 1547 Sign date/Time: 07/18/23 1548 Analilia Owens MD IMG BI PROCEDURES Final Re sult from Last 3 Months or Most Recently Relevant to Health Maintenance Insurance MEDICARE Care Teams Police Matron Relationship Specialty Start Date End Date Darwin Hopper MD [address] [place] [address] [address] [facility] [place] [address] PCP - General Internal Medicine 08/13/19
== END 2024-12-12 15:55 | disposition home or self-care (01) ==
LOC: HO.XRAY 15:54
PROVIDERS: PCP Internal Medicine; Visit Provider Internal Medicine
DX: M25.571 Pain in right ankle and joints of right foot (principal)
CPT/HCPCS: 73600

== ENCOUNTER → 2024-12-12 15:57 | Outpatient (BNV) | payer MEDICARE, SELFPAY | PROVIDERS: PCP Internal Medicine; Visit Provider Radiology Diagnostic Radiology | DX: M25.571 Pain in right ankle and joints of right foot (principal) | CPT/HCPCS: 73600 ==

== ENCOUNTER 2024-12-27 15:07 | Outpatient (REF) | payer MEDICARE, SELFPAY ==
--- NOTE | ~2024-12-27 | XR_ITS ---
EXAMINATION: XR CHEST CLINICAL INFORMATION: K21.9 - Gastro-esophageal reflux disease without esophagitis COMPARISON: February 28, 2024 TECHNIQUE: Frontal view of the chest was obtained. FINDINGS: Minimal basilar atelectasis has decreased. Lungs are clear otherwise. Heart size is normal. Right upper quadrant clips are likely related to prior cholecystectomy. XR/XR chest 1V IMPRESSION: Minimal basilar atelectasis. Cholecystectomy Electronically signed by: El Suarez MD 12/27/2024 04:45 PM EDT
== END 2024-12-27 15:08 | disposition home or self-care (01) ==
LOC: HO.XRAY 15:07
PROVIDERS: PCP Internal Medicine
DX: K21.9 Gastro-esophageal reflux disease without esophagitis (principal); I73.9 Peripheral vascular disease, unspecified; E78.00 Pure hypercholesterolemia, unspecified; M81.0 Age-related osteoporosis without current pathological fracture; F41.1 Generalized anxiety disorder; R73.01 Impaired fasting glucose
CPT/HCPCS: 71045; 96127; 99212

== ENCOUNTER 2024-12-27 15:07 | Outpatient (AMB) | payer MEDICARE, SELFPAY ==
--- OUTSIDE RECORDS SUMMARY | 2024-11-22 11:00 | XMS_ITS ---
[facility] Address [address] [place] [address] Care Team Providers Care Revenue Agent Name Role Phone Darwin Hopper Primary Care Provider Unavailabl Jose Wall Unavailable [phone] Encounters Encounter Location Date Provider Diagnosis [address] [address] 11/22/2024 Jose Baker Plan Of Treatment Next Appt Details Provider Name:Jose Baker , 02/28/2025 03:15:00 PM, [address], [address], Progress Notes * Nicole NAVARRODwainB:1950 ( 74 yo F)Acc No.[id number]:11/22/2024 Progress Note Patient: Madison MORALES Provider: Bobby Baker DPM :1950 A ge:74 Y S ex:Female Date:11/22/2024 [facility] [facility] Pcp:Darwin Hopper Subjective: * Chief Complaints: * [...] 11/22/2024 Generated for Miranda mariee/Tony/Rodrigo on: 0 12/27/2024 03:09 PM EDT
--- OUTSIDE RECORDS SUMMARY | 2024-12-22 23:59 | XMS_ITS | Continuity of Care Document ---
Author Organization [facility] Address [address] [place] [address]- Care Team Providers Care Log Deck Tender Name Role Phone Po Darwin GONZALES Primary Care Physician Encounter [facility] Date(s): 11/22/24 - 12/22/24 [facility] [address] [place] [id number] Encounter Type: Triage Allergies, Adverse Reactions, Alerts Substance Criticality Severity Reaction Reaction Severity Status penicillins nausea, upset stomach Active Motrin upset stomach Active LaMICtal rash Active Medications Ativan 0.5 mg oral tablet 1 tablet = 0.5 mg, By Mouth, PRN as needed for anxiety, 0 Refills, Maintenance, 07/30/15 2:56:48 PM EST Start Date: 07/30/15 Status: Ordered Repeat number: 1 Cymbalta Capsule = 90 mg, By Mouth, Daily, 0 Refills, Maintenance, 07/30/15 2:55:57 PM EST Start Date: 07/30/15 Status: Ordered Repeat number: 1 Fosamax 70 mg oral tablet 1 tablet = 70 mg, By Mouth, Every week, # 12 tablet, 4 Refills, Maintenance, 11/22/24 2:01:00 PM EDT, Tablet, [facility]/pharmacy #[id number], Partial fill upon patient request if the prescription is for a schedule II opioid drug., 152.1, cm, 12/08/23 14:59:00 EDT, Height Start Date: 11/22/24 Stop Date: 01/16/26 Status: Ordered Quantity: 12.0 Unit: tablet Repeat number: 5 Fosamax 70 mg oral tablet 1 tablet = 70 mg, By Mouth, Every week, # 4 tablet, 11 Refills, Maintenance, 08/11/17 4:52:58 PM EST, Tablet, [facility]/pharmacy #[id number] Start Date: 08/11/17 Status: Ordered Quantity: 4.0 Unit: tablet Repeat number: 12 Multivitamin Tablet By Mouth, Daily, 0 Refills, Maintenance, 07/30/15 3:00:26 PM EST Start Date: 07/30/15 Status: Ordered Repeat number: 1 nystatin 617385 u oral tablet 2 tablet = 1,000,000 units, By Mouth, 2 times a day, 0 Refills, Maintenance, 07/30/15 2:58:44 PM EST Start Date: 07/30/15 Status: Ordered Repeat number: 1 [place]-3 oral capsule 0 Refills, Maintenance, 05/09/17 3:35:40 PM EST Start Date: 05/09/17 Status: Ordered Repeat number: 1 Prilosec 20 mg oral enteric coated capsule 1 capsule = 20 mg, By Mouth, Daily, 0 Refills, Maintenance, 07/30/15 2:56:16 PM EST Start Date: 07/30/15 Status: Ordered Repeat number: 1 Probiotic Formula 1 capsule, By Mouth, Daily, 0 Refills, Maintenance, 05/09/17 3:34:23 PM EST Start Date: 05/09/17 Status: Ordered Repeat number: 1 Salagen 5 mg oral tablet 1 tablet = 5 mg, By Mouth, 4 times a day, 0 Refills, Maintenance, 08/24/18 12:59:37 PM EST Start Date: 08/24/18 Status: Ordered Repeat number: 1 simvastatin 5 mg oral tablet 1 tablet = 5 mg, By Mouth, Daily at bedtime, # 30 tablet, 0 Refills, Maintenance, 05/09/17 3:36:48 PM EST, Tablet Start Date: 05/09/17 Status: Ordered Quantity: 30.0 Unit: tablet Repeat number: 1 traZODone 50 mg oral tablet 50 mg, 1, tablet, By Mouth, Daily at bedtime, # 30 tablet, Refills 0, Maintenance, 05/09/17 3:33:31PM EST Start Date: 05/09/17 Status: Ordered Quantity: 30.0 Unit: tablet Repeat number: 1 Vitamin B6 Daily, 0 Refills, Maintenance, 05/09/17 3:34:08 PM EST Start Date: 05/09/17 Status: Ordered Repeat number: 1 Vitamin D3 1000 intl units oral capsule 1 capsule = 1,000 International_Units, By Mouth, Daily, # 100 capsule, 0 Refills, Maintenance, 05/09/17 3:34:58 PM EST, Capsule Start Date: 05/09/17 Status: Ordered Quantity: 100.0 Unit: capsule Repeat number: 1 Social History Social History Type Response Smoking Status Never smoker entered on: 07/30/15 Sex Sex Representation Female (finding) Patient Care team information Care Team Personnel Name: Darwin Hopper MD Position: Reference Physician Member Role: PCP Address: [address] [place] [address] Telecom: Care Team Related Persons Name: JENNIFER TRAN Insurance Providers Guarantor name: KIKE DEONJESSE Health Plan Information #: 1 Payer: MEDICARE B Payer Identifier: CHRISTA Member Number: [id number] Group Number: Subscriber Identifier: [id number] Relationship to Subscriber: self Coverage Type: NA Coverage Verification Date: NA Telecom: Address: [facility] Information #: 2 Payer: MEDEX SECONDARY ONLY Payer Identifier: CHRISTA Member Number: [id number] Group Number: Subscriber Identifier: [id number] Relationship to Subscriber: self Coverage Type: Medicare Other Coverage Verification Date: Telecom: Address:
[2024-12-27 15:09] VITALS: BP 114/66; PULSE 98; TEMP 36.3; O2SAT 96; BMI 24.3
--- NOTE | 2024-12-27 15:09 | MHC.PC.OV ---
Vital Signs 12/27/24 15:09 Height 5 ft 1 in Weight 128 lb 6 oz BMI 24.3 BP 114/66 Blood Pressure Location Lt brachial Position Sitting Pulse 98 Pulse Source Pulse Oximeter Temp 97.3 F Temp Source Temporal Artery Scan Pulse Oximetry (%) 96 Oxygen Delivery Method Room Air Intake Visit Reasons: feet swelling Allergies lamotrigine (From LAMICTAL) Allergy (Intermediate, Verified 12/27/24 15:09) RASH Sulfa (Sulfonamide Antibiotics) (SULFA (SULFONAMIDE ANTIBIOTICS)) Allergy (Intermediate, Verified 12/27/24 15:09) UNKNOWN, upset stomach codeine (CODEINE) Allergy (Mild, Verified 12/27/24 15:09) NAUSEA & VOMITING, nausea and vomiting penicillin V (PENICILLIN V) Allergy (Mild, Verified 12/27/24 15:09) NAUSEA & VOMITING, sick to stomach, nausea and vomiting ciprofloxacin (Cipro) Allergy (Unknown, Verified 12/27/24 15:09) sick to stomach ibuprofen (From Motrin) Adverse Reaction (Verified 12/27/24 15:09) sick to stomach, nausea and vomiting Medication List - Last Reconciled 12/27/24 by Chelsea Altamirano PA-C alendronate 70 mg PO QWEEK alprazolam 0.5 mg PO BID PRN calcium carb and citrat-mag ox 200 mg calcium- 50 mg tabs PO cholecalciferol (vitamin D3) 25 mcg PO DAILY ciclopirox 1% topical compress.stocking,knee,reg,med As directed 20-30 mm HG cyclosporine 0.09% (Cequa) 1 drp ophthalmic (eye) Q12H duloxetine 120 mg PO DAILY multivitamin 1 tab PO DAILY nystatin 6 mL PO QID omega-3 fatty acids 1,000 mg PO DAILY omeprazole 20 mg PO DAILY pyridoxine (vitamin B6) 100 mg PO DAILY 90 days simvastatin 5 mg PO BEDTIME vitamin K2 45 mcg PO DAILY Tobacco use date assessed: 12/04/24 Fall risk assessment: 1 Fall in past year Last assessed Fall Risk: 12/27/24 Dental Screening Dental Screen Date: 12/04/24 Did you have a dental visit in the last 12 months?: Yes Did you have a dental problem in the last 6 months where you did not have access to dental care?: No Was dental information given to patient?: Patient has dentist HPI feet swelling HPI Details 74-year-old female with past medical history of hypercholesterolemia, GERD, Sjogren's syndrome, osteoporosis, generalized anxiety disorder, cognitive impairment, impaired fasting glucose and peripheral vascular disease last seen 11/2024 by coming in for acute problem. Presenting with multiple conditions. The rash has been present since July and is widespread across the body, including the scalp, causing scabs and itching. Treatment has included topical creams and a steroid injection, but these have not been effective. The patient was advised to start systemic steroids but has not due to concerns about side effects. She is following with [facility] for this concern. Peripheral edema started two weeks ago, with swelling, pain, burning, and itching in the feet. X-rays were negative, and the patient suspects a vascular issue. Compression stockings were initially recommended but later advised against due to discomfort. The patient is unable to elevate her legs frequently due to caregiving responsibilities. [facility] Medical History Post-nasal drip Bronchitis Numbness in feet Impacted cerumen of left ear Hoarseness Stye Hoarseness Hip pain, right Lower back pain Colon cancer screening Acute sinusitis Trigger finger of right hand Sjogren's syndrome Bile salt-induced diarrhea Osteoarthritis Irritable bowel syndrome GERD (gastroesophageal reflux disease) Essential tremor Hypercholesterolemia Calculus of left kidney Constipation Cholecystectomy planned Right knee meniscal tear Hepatitis Osteoporosis Umbilical hernia History of duodenal ulcer Liver hemangioma Surgical History Hx of tonsillectomy History of cholecystectomy Cataract History of knee surgery History of eyelid surgery H/O adenoidectomy History of appendectomy Family History Father Hypertension Prostate cancer Mother Hypertension Diabetes Dementia Maternal Aunt Gastric cancer Paternal Aunt Gastric cancer Ovarian cancer Paternal Uncle Myocardial infarction Social History Household Members: Spouse Housing: House Do you presently have visiting nurse or other home services: No Alcohol intake: never Patient Tobacco Use Status: Never used Tobacco e-Cigarette/Vaping Use: Never Used Second Hand Smoke Exposure: No service: No Current occupational status: retired Cognitive needs: No Hearing needs: No Vision needs: Yes Questionnaire PHQ-9 Over the last 2 weeks, how often have you been bothered by any of the following problems? 1. Little interest or pleasure in doing things: more than half the days 2. Feeling down, depressed, or hopeless: several days 3. Trouble falling or staying asleep, or sleeping too much: not at all 4. Feeling tired or having little energy: several days 5. Poor appetite or overeating: more than half the days 6. Feeling bad about yourself - or that you are a failure or have let yourself or your family down: not at all 7. Trouble concentrating on things, such as reading the newspaper or watching television: not at all 8. Moving or speaking so slowly that other people could have noticed. Or the opposite - being so fidgety or restless that you have been moving around a lot more than usual: not at all 9. Thoughts that you would be better off or of hurting yourself in some way: not at all Total score: 6 Source: Developed by Drs. Benny Marcano, Gina Gonzalez, Obi Guajardo and colleagues, with an educational garcia from [employer]. Thrive Questionnaire Date Thrive assessed: 12/02/24 I am a: Patient What is your living situation today?: I have a steady place to live Within the past 12 months, did the food you bought not last and you didn't have the money to get more?: Never true Within the past 12 months, did you worry whether your food would run out before you got money to buy more?: Never true Do you have trouble paying for medicines?: No Do you have trouble getting transportation to medical appointments?: No Do you have trouble paying your heating and electricity bill?: No Do you have trouble taking care of your child, family member or friend?: Yes Do you have trouble with day-to-day activities such as bathing, preparing meals, shopping, managing finances, etc.?: No Are you currently unemployed and looking for a job?: No Are you interested in more education?: No Currently or been in a relationship where the following occur: No concerns reported THRIVE Score: 0 AUDIT C Alcohol Use Questionnaire (AUDIT-C) 1. How often do you have a drink containing alcohol?: Never 3. How often do you have six or more drinks on one occasion?: Never Total Score: 0 BENITA-7 AMB Questionnaire BENITA-7 Date BENITA - 7 assessed: 12/04/24 Feeling nervous, anxious, or on edge: 1 = Several days Not being able to stop or control worryin = Several days Worrying too much about different things: 1 = Several days Trouble relaxin = Not at all Being so restless that it is hard to sit still: 0 = Not at all Becoming easily annoyed or irritable: 1 = Several days Feeling afraid as if something awful might happen: 0 = Not at all Total BENITA-7 score (0-4 normal; 5-9 mild; 10-14 moderate; 15-21 severe): 4 Source: Developed by Drs. Benny Marcano, Gina Gonzalez, Obi Guajardo and colleagues, with an educational garcia from [employer]. Review of Systems Const Denies body aches, Denies chills, Denies fever(s), Denies headache(s) and Denies poor appetite Eyes Reports no additional complaints ENT Denies dizziness and Denies headache(s) Card Denies chest pain, Denies syncope, Denies lightheadedness and Denies dyspnea Resp Denies dyspnea GI Denies abdominal pain, Denies nausea and Denies vomiting Reports no additional complaints Musc Reports no additional complaints and Denies abnormal gait Skin/Breast Reports system reviewed and no additional complaints, except as documented Neuro Denies abnormal gait, Denies dizziness, Denies syncope and Denies headache(s) Psych Reports no additional complaints Physical exam (Primary Care) Vital Signs: Last Vital Signs Temp 97.3 F 12/27/24 15:09 Pulse 98 12/27/24 15:09 BP 114/66 12/27/24 15:09 Pulse Ox 96 12/27/24 15:09 Oxygen Delivery Method Room Air 12/27/24 15:09 BMI result Body Mass Index 24.3 Tobacco/Smoking Status: Tobacco use Status Tobacco use date assessed 12/04/24 12/27/24 15:17 Patient Tobacco Use Status Never used Tobacco 12/27/24 15:17 e-Cigarette/Vaping Use Never Used 12/27/24 15:17 PHQ-9: PHQ-9 Score PHQ-9: Total score 6 12/27/24 15:17 Thrive Assessment: Date of Thrive Assessment Date Thrive assessed 12/02/24 12/27/24 15:17 Currently or been in a relationship where the following occur: No concerns reported Const General: cooperative, healthy appearing, comfortable and no acute distress Orientation/consciousness: patient oriented x3 HENIA Head: Yes normocephalic Ears: hearing grossly normal bilaterally General nose exam: Normal external nose present Eyes General: appearance normal, both eyes and all related structures Conjunctivae: conjunctivae normal Neck Neck: Yes full ROM and Yes no lymphadenopathy Resp Effort & Inspection: normal respiratory effort Auscultation: clear to auscultation bilaterally, no crackles, no rales, no rhonchi and no wheezes Cardio Rate: regular rate Rhythm: regular rhythm Skin General skin exam: no rashes or lesions noted Neuro General: patient oriented x3 Gait exam (Neuro): Normal gait present Extrem Other: Intact strength, sensation, pulses in bilateral lower extremities. 1+ pitting edema bilateral lower extremities without erythema, warmth or tenderness to palpation General: Yes normal to inspection, Yes full ROM and No edema Psych Affect: normal affect Attitude: cooperative Insight: Good insight present (Psych) Judgement: Good judgement present (Psych) Coding Level of Care Code Est Pt Level 3 (70776) Diagnoses Peripheral vascular disease I73.9 Assessment & Plan Assessment & Plan (1) Peripheral vascular disease: Code(s): I73.9 - Peripheral vascular disease, unspecified Category: Medical Plan: Patient was seen by Dr. Ward mayo for this concern and was advised compression stockings and leg elevation. She can not tolerate the compression stockings and does not routinely elevate her legs. She is interested in having an ultrasound to look at the vasculature of the lower extremities for any abnormality. I did discuss with the patient likely treatment would not change based on the results of these findings however she would like to continue with the test. I did prescribe her a short course of furosemide for symptom management. Kidney function has been normal and plan to obtain chest x-ray for further evaluation of leg swelling. Low suspicion for DVT at this time as symptoms have been ongoing for several weeks. Bilateral calves negative for erythema, warmth, unilateral swelling or tenderness to palpation. Plan The patient will undergo a chest x-ray to rule out any cardiac causes for the peripheral edema, and an ultrasound will be scheduled to assess for venous insufficiency. A short course of Lasix will be prescribed to manage the swelling, with instructions to maintain hydration to prevent electrolyte imbalance. The patient is advised to elevate her legs whenever possible and to engage in walking exercises to improve circulation. This note was constructed using voice recognition software. While every effort has been made to ensure accuracy and optimization engineer, still areas may have been included sometimes these areas may affect the content or meeting of the given symptoms. Total time spent caring for the patient today was 20 minutes. This includes time spent before the visit reviewing the chart, time spent during the visit, and time spent after the visit and documentation. Patient was informed and verbally consented to the use of an ambient scribe for clinic note documentation during this visit. Orders: Orders XR chest 1V Today I73.9 - Peripheral vascular disease, unspecified, K21.9 - Gastro-esophageal reflux disease without esophagitis US venous insuf bilat Today I73.9 - Peripheral vascular disease, unspecified Medications: New clotrimazole 1% 1 appl topical BID 15 grams 0RF furosemide 20 mg PO DAILY 5 tabs 0RF
--- OUTSIDE RECORDS SUMMARY | 2024-12-27 15:10 | XMS_ITS | Clinical Summary ---
Author Organization [facility] Address [address] [place] [address] Care Team Providers Care Molecular Physicist Name Role Phone Darwin Hopper MD Primary Care Provider [phone] Allergies Active Allergy Reactions Criticality Noted Date [...] by mouth. 0 07/30/2015 Active nystatin (MYCOSTATIN) 557569 units tablet Take by mouth. 0 07/30/2015 [...] Vaccine (1 of 1 - PCV) 2014 RSV Adult > 60+ Yrs or Pregn ant (1 - 1-dose 75+ series) 2024 Influenza Vaccine (Season Ended) 2025 Hepatitis B Vaccines Aged Out No long er eligible based on patient's age to complete this topic RSV Ped < 20 months Aged Out No longe r eligible based on patient's age to complete this topic Care Teams Molecular Physicist Relationship Specialty Start Date End Date Po, Darwin Wasserman MD [address] [place] [address] [address] [facility] [place] [address] PCP - General Internal Medicine 08/13/19
--- OUTSIDE RECORDS SUMMARY | 2024-12-27 15:10 | XMS_ITS ---
Author Name [facility] Organization Unknown Care Team Organization Name Specialty Phone Email Start Date End Da [facility] CARROLL SHANNON Primary Care 05/27/2022 024
--- OUTSIDE RECORDS SUMMARY | 2024-12-27 15:10 | XMS_ITS | Patient Health Record ---
Author Organization [facility] Address [address] [place] [address] Care Team Providers Care Message And Delivery Service Pricer Name Role Phone CARROLL SHANNON M.D. Primary Care Provider Analilia Manning Unavailable [phone] Allergies Allergen (clinical drug ingredient) Drug/Non Drug Allergy documented on EMR Reaction Allergy Type Onset Date Status lamotrigine Lamictal Skin Rash Drug Allergy Activ e Motrin Nausea/Vomiting/ Diarrhea Drug Allergy Active estrogens, conjugated ([facility]) Premarin Skin Rash Drug Allergy Active estradiol Vagifem Skin Rash Drug Allergy Active codeine Codeine Nausea/Vomiting Drug Allergy A ctive Penicillin Nausea/Vomiting Drug Allergy Active Reason For Referral No Information Medications Medication SIG (Take, Route, Frequency, Duration) Notes Start Date End Date Status Vitamin B-6 50 MG TAKE 1 TABLET BY CATARINA EVERY DAY Oral; Duration: 90 Active Cequa 0.09 % INSTILL 1 DROP INTO AFFECTED EYE 2 TIMES A DAY Ophthalmic; Duration: 30 Active Calcium 500 MG 1 tablet with meals Orally Twice a day; Duration: 30 day(s) Active Asenapine 3.8 MG/24HR 1 patch to skin Tr ansdermal Once a day; Duration: 30 day(s) 06/23/2023 Active Vitamin K 100 MCG 1 tablet Orally Once a day; Duration: 30 day(s) Active Alendronate Sodium 70 MG 1 tablet 30 min utes before the first food, beverage or medicine of the day with plain water Orally; Duration: 30 day(s) 06/28/2024 Active Probiotic Orally Active Multi For Her 50+ Orally Ac tive PriLOSEC 20 MG 2 capsules Orally On ce a day Active Simvastatin 5 MG 1 tablet in the even ing Orally Once a day Active Hyden 3 1000 MG 1 capsule Orally Onc e a day; Duration: 30 day(s) Active hydrOXYzine HCl 10 MG TAKE 1 TABLET BY M OUTH TWICE A DAY NEEDED Oral; Duration: 15 Days Active Xanax 0.5 MG 1 [...] Status Risk Notes Problem Gynecological examination abnormal (334290650080223) Encounter for gynecological examination (general) (routine) with abnormal findings (Z01.411) Active confirmed Problem Postmenopausal atrophic vaginitis (73266913) Postmenopausal atrophic vaginitis (N95.2) Active confirmed Problem Age-related osteoporosis (612107372) Age-related osteoporosis without current pathological fracture (M81.0) Active confirmed Problem Urinary incontinence (189216551) Unspecified urinary incontinence (R32) Active confirmed Problem Constipation (39593969) Constipation, unspecified (K59.00) Active confirmed Problem Anxiety state (374683448) Anxiety state, unspecified (300.00) Active confirmed Major Problem Depressive disorder (54886940) Depressive disorder, not elsewhere classified (311) Active confirmed Major Problem Dyspareunia (56853990) Dyspareunia (625.0) Active confirmed Diag Problem Female stress incontinence (28215496) Female stress incontinence (625.6) Active confirmed Major Problem Menopausal symptom (95289070) Symptomatic menopausal or female climacteric states (627.2) Active confirmed Major Problem Postmenopausal atrophic vaginitis (60491840) Postmenopausal atrophic vaginitis (627.3) Active confirmed Diag Problem Osteoporosis (14966658) Unspecified osteoporosis (733.00) Active confirmed Problem Gynecological examination normal (654245071959369) Routine gynecological examination (V72.31) Active confirmed Major Problem Screening for malignant neoplasm of colon (489910256) Special screening for malignant neoplasms, colon (V76.51) Active confirmed Major Vital Signs Temperature 97.4 degrees Fahrenheit 06/28/2024 Blood pressure diastolic 74 mm Hg 06/28/2024 Height 60.8 in 06/28/2024 Blood pressure systolic 108 mm Hg 06/28/2024 Weight 140 lbs 06/28/2024 BMI 26.62 kg/m2 06/28/2024 Encounters Encounter Location Date Provider Diagnosis [facility] [facility] [address] [place] [address] 06/28/2024 Analilia Galvan Encounter for gynecological examination [...] Screening 06/16/2022 Next Appt Details Provider Name:Analilia Caraballo chelitavalerierachael, 07/05/2025 03:00:00 PM, [address], [address], [place], [address], Insurance Providers Payer Name Payer Address Payer Phone Subscriber Number Group Number Insured Name Patient Relationship to Insured Coverage Start Date Coverage End Date MEDICARE [address] [place] [id number] DEONHOLLY MOLINAA Self - patient is the insured MEDEX [address] [place] [address] [id number] HOLLY TRANA Self - patient is the insured Medical [...]
--- OUTSIDE RECORDS SUMMARY | 2024-12-27 15:10 | XMS_ITS | Patient Health Record ---
Author Organization [facility] Address [address] [place] [address] Care Team Providers Care Track Watchman Name Role Phone Po Darwin GONZALES Primary Care Provider Zoltan Grant Jr Allergies Allergen (clinical drug ingredient) Drug/Non Drug [...] Multi Vitamin/Minerals - 1 Orally QD Active Bedford 3 1000 MG 1 AND half capsule O rally Once a day Active Salagen 7.5 MG 1 tablet Orally Thre e times a day Active Simvastatin 5 MG 1 tablet in the even ing Orally Once a day Active Probiotic - 1 capsule Orally onc e a day Active Calcium Magnesium Ac tive Lexapro 10 MG 1 tablet Orally Once a day for 30 day(s) Active Cequa 0.09 % 1 drop into affected eye Ophthalmic every 12 hrs Active Diflucan 03/30/2021 Active Vitamin B-6 50 MG 1 tablet Orally Once a day Active Vitamin K Active Omeprazole 20 MG Orally Act alexander Vitamin D 50 MCG (1999) 1 capsule Ora lly Once a day for 30 day(s) Active Asenapine Maleate 2.[address] TABLE T UNDER THE TONGUE 2 TIMES DAY Sublingual for 30 Active ALPRAZolam 0.5 MG 1 tablet Orally once a day Active Fluticasone Propionate 50 MCG/ACT 1 spray in each nostril Nasally Twice a day Active Immunizations Vaccine Route Administration Date Status Comme nts Influenza Unknown 02/25/2017 Administered Influenza Unknown 01/25/2019 Administered Influenza Unknown 02/26/2020 Administered Influenza Unknown 03/26/2021 Administered Influenza Unknown 02/25/2022 Administered Influenza Unknown 03/13/2024 Administered Problems Problem Type SNOMED Code ICD Code Onset Dates Problem Status W/U Status Risk Notes Problem 302861519 Left lower quadr ant pain (R10.32) Active confirmed Problem 59341188 Functional diarr hea (K59.1) Active confirmed Problem 054408195 Dorsalgia, unspecified (M54.9) Active confirmed Problem 796328705 Elevated LFTs (R79.89) Active confirmed Problem 155219006 Gastroesophageal reflux disease without esophagitis (K21.9) Active confirmed Problem 97992169 Dysphagia, unspecified type (R13.10) Active confirmed Problem 875602213 Abdominal pain, LLQ (R10.32) Active confirmed Problem 660254627 Irritable bowel syndrome with constipation (K58.1) Active confirmed Problem 381623172 FH: colon polyps (Z83.71) Active confirmed Problem 531418704 LLQ pain (R10.32) Active confirmed Vital Signs Temperature 98.6 degrees Fahrenheit 10/22/2024 Blood pressure diastolic 01 mm Hg 10/22/2024 Height 61 in 10/22/2024 Blood pressure systolic 001 mm Hg 10/22/2024 Weight 131.6 lbs 10/22/2024 BMI 24.86 kg/m2 10/22/2024 Encounters Encounter Location Date Provider Diagnosis [facility] [address] [place] [address] 10/22/2024 Zoltan Vazquez Jr Gastroesophageal reflux disease without esophagitis K21.9 and Irritable bowel syndrome with constipation K58.1 [facility] [address] [place] [address] 07/11/2024 Zoltan Vazquez Jr Assessments Encounter Date Diagnosis (ICD Code) Assessment Notes Treatment Notes Treatment Clinical Notes Section Notes 10/22/2024 Gastroesophageal reflux disease without esophagitis (ICD-10 - K21.9) At this time, Kike is doing well. We recommended she continue omeprazole for her reflux. We discussed diet, lifestyle modifications, and weight management regarding the treatment of reflux. IBS symptoms are doing well. We discussed the need for plenty of fiber in her diet. She will keep track of her fiber and aim to 20 to 30 g of fiber on a daily basis. She can use Metamucil as needed if necessary to supplement her diet. Follow-up in 6 to 12 months.Today's visit was 30 minutes. 10/22/2024 Irritable bowel syndrome with constipation (ICD-10 - K58.1) At this time, Kike is doing well. We recommended she continue omeprazole for her reflux. We discussed diet, lifestyle modifications, and weight management regarding the treatment of reflux. IBS symptoms are doing well. We discussed the need for plenty of fiber in her diet. She will keep track of her fiber and aim to 20 to 30 g of fiber on a daily basis. She can use Metamucil as needed if necessary to supplement her diet. Follow-up in 6 to 12 months.Today's visit was 30 minutes. Plan Of Treatment Pending Test Test Name Order Date LIVER PROFILE 07/01/2022 XR GI SERIES 09/22/2017 Future Test Test Name Order Date COLONOSCOPY 12/10/2013 UPPER GI ENDOSCOPY 09/22/2017 COLONOSCOPY 05/08/2020 Next Appt Details Provider Name:Zoltan Melonie turner , 05/16/2025 02:15:00 PM, [address] [place] [address], [address], [place], [address], Insurance Providers Payer Name Payer Address Payer Phone Subscriber Number Group Number Insured Name Patient Relationship to Insured Coverage Start Date Coverage End Date MEDICARE OF [place] [address] [place] [address] [phone] [id number] CHELSEA KIKE Self - patient is the insured MEDEX ATTN CLAIMS [address] [place] [address] [id number] HOLLY TRANA Self - patient is the insured Medical (General) History Medical History History ICD Code insomnia depression/anxiety 2015 benign left cyst breast urinary incontinence-mild Back pain colonoscopy 09/03/20, normal, five-year followup due to family history of colon polyps. sjogren syndrome Nephrolithiasis hyperlipidemia GERD migraines osteoporosis Gastroesophageal reflux disease, EGD 11/02, no Castro's or H. pylori Surgical History Surgery Date(Month/Year) knee surgery aug 13, 2022 Cataract repairs 03/2019r /04/2019L Right meniscus surgery 06/2018 finger surgery eye surgery adnoidectomy tonsillectomy appendectomy cholecystectomy
--- OUTSIDE RECORDS SUMMARY | 2024-12-27 15:10 | XMS_ITS | Clinical Summary ---
Author Organization [facility] Address [address] [place] [address] Phone Care Team Providers Care Ironworker Machine Operator Name Role Phone Darwin Hopper MD Primary Care Provider [phone] Surgical History Surgery Date Site/Laterality Comments ADENOIDECTOMY [...] year. Mammo Location: [facility], [address] [place] [address], [address], . -------- FINAL REPORT -------- Dictated By: Geneva Coronel Dictated Date: 09/13/2024 15:07 ET Assigned Physician: Geneva Coronel Reviewed and Electronically Signed By: Geneva Coronel Signed Date: 09/13/2024 15:09 ET Workstation ID: [id number] Transcribed By: Self Edit Transcribed Date: 09/13/2024 [...] year. Mammo Location: [facility], [address] [place] [address], [address], . -------- FINAL REPORT -------- Dictated By: Geneva Coronel Dictated Date: 09/13/2024 15:07 ET Assigned Physician: Geneva Coronel Reviewed and Electronically Signed By: Geneva Coronel Signed Date: 09/13/2024 15:09 ET Workstation ID: [id number] Transcribed By: Self Edit Transcribed Date: 09/13/2024 15:07 ET us Self Referral Sppl IMG BI PROCEDURES Final Resul t * JAIME DEXA AXIAL SKELETON (07/18/2023 3:48 PM EST) Anatomical Region Laterality Modality Mammography 07/18/2023 2:51 PM EST Narrative 07/18/2023 3:48 PM EST [facility] Diagnostic Imaging Department [address] [place] [address] Patient: KIKE NAVARRO Bee /Age/Sex: 1950 - 73 - F Unit#: [id number] Location/Status: SPDIMAM/REG CLI Mnemonic[facility] Ordering Physician: ANALILIA OWENS MD [facility] Dexa Axial Skeleton - 07/18/23 - 1525 Report Status:Signed History: Low estrogen state due to menopause. Personal history of fracture. Height loss. Comparison: 06/02/21 Findings: Bone densitometry is performed utilizing dual energy x-ray absorptiometry (DXA) in the Patient Feed unit. The lumbar spine and proximal femora [...] 25.9 percent Hip 8.1 percent. IMPRESSION: Osteoporosis. [id number] Dictating Physician: BAILEY NIETO MD Electronically Signed by: BAILEY NIETO MD Dic Date/Time: 07/18/23 1547 Sign date/Time: 07/18/23 1548 Procedure Note Bailey Nieto MD - 02/13/2024 [facility] Diagnostic Imaging Department [address] [place] [address] Patient: CHELSEAKIKE/Age/Sex: 1950 - 73 - F Unit#: [id number] Location/Status: [facility]/REG I Mnemonic[facility] Ordering Physician: ANALILIA OWENS MD Jaime Dexa Axial Skeleton - 07/18/23 - 6673 Report Status:Signed History: Low estrogen state due to menopause. Personal history offracture. Height loss. Comparison: 06/02/21 Findings: Bone densitometry is performed utilizing dual energy x-ray absorptiometry(DXA) in the Patient Feed unit. The lumbar spine and proximal femora [...] 25.9 percent Hip 8.1 percent. IMPRESSION: Osteoporosis. [id number] Dictating Physician: BAILEY NIETO MD Electronically Signed by: BAILEY NIETO MD Dic Date/Time: 07/18/23 1547 Sign date/Time: 07/18/23 1548 Analilia Owens MD IMG BI PROCEDURES Final Re sult from Last 3 Months or Most Recently Relevant to Health Maintenance Insurance MEDICARE Care Teams Ironworker Machine Operator Relationship Specialty Start Date End Date Darwin Hopper MD [address] [place] [address] [address] [facility] [place] [address] PCP - General Internal Medicine 08/13/19
== END 2024-12-27 16:31 | disposition home or self-care (01) ==
LOC: HO.HMCH 15:08
PROVIDERS: PCP Internal Medicine
DX: I73.9 Peripheral vascular disease, unspecified (principal)

== ENCOUNTER → 2024-12-27 16:04 | Outpatient (BNV) | payer MEDICARE, SELFPAY | PROVIDERS: PCP Internal Medicine; Visit Provider Radiology Diagnostic Radiology | DX: K21.9 Gastro-esophageal reflux disease without esophagitis (principal) | CPT/HCPCS: 71045 ==

== ENCOUNTER 2025-01-10 12:23 | Outpatient (AMB) | payer MEDICARE, SELFPAY ==
--- OUTSIDE RECORDS SUMMARY | 2024-11-22 11:00 | XMS_ITS ---
Author Organization [facility] Address [address] [place] [address] Care Team Providers Care Formwork Carpenter Name Role Phone Darwin Hopper Primary Care Provider Unavailabl Jose Wall Unavailable [phone] Encounters Encounter Location Date Provider Diagnosis [address] [address] 11/22/2024 Jose Baker Plan Of Treatment Next Appt Details Provider Name:Jose Baker , 02/28/2025 03:15:00 PM, [address], [address], Progress Notes * Nicole NAVARRODwainB:1950 ( 74 yo F)Acc No.[id number]:11/22/2024 Progress Note Patient: Madison MORALES Provider: Bobby Baker DPM :1950 A ge:74 Y S ex:Female Date:11/22/2024 [facility] [facility] Pcp:Darwin Hopper Subjective: * Chief Complaints: * [...] 11/22/2024 Generated for Miranda mariee/Tony/Rodrigo on: 0 01/10/2025 12:52 PM EDT
--- OUTSIDE RECORDS SUMMARY | 2025-01-10 12:52 | XMS_ITS | Clinical Summary ---
Author Organization [facility] Address [address] [place] [address] Phone Care Team Providers Care Geographic Information Systems Engineer Name Role Phone Darwin Hopper MD Primary Care Provider [phone] Surgical History Surgery Date Site/Laterality Comments ADENOIDECTOMY [...] 2024 04/27/2024, 03/25/2023, 04/21/2022, Additional history exists Influenza Vaccine (#1) 2025 , 03/31/2023, 04/05/2022, Additional history exists DTaP,Tdap,and Td Vaccines (2 - Td or Tdap) 08/17/2026 08/17/2016 Osteoporosis Screening (Bone Density Screening) 07/18/2033 07/18/2023, 06/02/2021, 04/23/2019 Pneumococcal Vaccine: 50+ Years Completed 09/09/2018, 09/06/2016, 08/02/2016, Additional history exists Zoster Vaccines Completed 02/12/2019, 10/12/2018 RSV Immunization Adult Patients Completed 04/30/2023 Breast Cancer Screening Discontinued 09/14/19, 07/18/2023, 07/14/2022, [...] year. Mammo Location: [facility], [address] [place] [address], [address], . -------- FINAL REPORT -------- Dictated By: Geneva Coronel Dictated Date: 09/13/2024 15:07 ET Assigned Physician: Geneva Coronel Reviewed and Electronically Signed By: Geneva Coronel Signed Date: 09/13/2024 15:09 ET Workstation ID: [id number] Transcribed By: Self Edit Transcribed Date: 09/13/2024 [...] year. Mammo Location: [facility], [address] [place] [address], [address], . -------- FINAL REPORT -------- Dictated By: Geneva Coronel Dictated Date: 09/13/2024 15:07 ET Assigned Physician: Geneva Coronel Reviewed and Electronically Signed By: Geneva Coronel Signed Date: 09/13/2024 15:09 ET Workstation ID: [id number] Transcribed By: Self Edit Transcribed Date: 09/13/2024 15:07 ET us Self Referral Sppl IMG BI PROCEDURES Final Resul t * JAIME DEXA AXIAL SKELETON (07/18/2023 3:48 PM EST) Anatomical Region Laterality Modality Mammography 07/18/2023 2:51 PM EST Narrative 07/18/2023 3:48 PM EST [facility] Diagnostic Imaging Department [address] [place] [address] Patient: KIKE NAVARRO Bee /Age/Sex: 1950 - 73 - F Unit#: [id number] Location/Status: SPDIMA/REG CLI Mnemonic[facility] Ordering Physician: ANALILIA OWENS MD [facility] Dexa Axial Skeleton - 07/18/23 - 1347 Report Status:Signed History: Low estrogen state due to menopause. Personal history of fracture. Height loss. Comparison: 06/02/21 Findings: Bone densitometry is performed utilizing dual energy x-ray absorptiometry (DXA) in the [employer]ement[employer] unit. The lumbar spine and proximal femora [...] 25.9 percent Hip 8.1 percent. IMPRESSION: Osteoporosis. [id number] Dictating Physician: BAILEY NIETO MD Electronically Signed by: BAILEY NIETO MD Dic Date/Time: 07/18/23 1547 Sign date/Time: 07/18/23 1548 Procedure Note Bailey Nieto MD - 02/13/2024 [facility] Diagnostic Imaging Department [address] [place] [address] Patient: DEONJESSEKIKE./Age/Sex: 1950 - 73 - F Unit#: [id number] Location/Status: [facility]/REG CLI Mnemonic[facility] Ordering Physician: ANALILIA OWENS MD Jaime Dexa Axial Skeleton - 07/18/23 - 4213 Report Status:Signed History: Low estrogen state due to menopause. Personal history offracture. Height loss. Comparison: 06/02/21 Findings: Bone densitometry is performed utilizing dual energy x-ray absorptiometry(DXA) in the [employer]ement[employer] unit. The lumbar spine and proximal femora [...] 25.9 percent Hip 8.1 percent. IMPRESSION: Osteoporosis. [id number] Dictating Physician: BAILEY NIETO MD Electronically Signed by: BAILEY NIETO MD Dic Date/Time: 07/18/23 1547 Sign date/Time: 07/18/23 1548 Analilia Owens MD IMG BI PROCEDURES Final Re sult from Last 3 Months or Most Recently Relevant to Health Maintenance Insurance MEDICARE Care Teams Geographic Information Systems Engineer Relationship Specialty Start Date End Date Darwin Hopper MD [address] [place] [address] [place] [address] [place] [address] PCP - General Internal Medicine 08/13/19
--- OUTSIDE RECORDS SUMMARY | 2025-01-10 12:52 | XMS_ITS | Clinical Summary ---
Author Organization [facility] Address [address] [place] [address] Care Team Providers Care Air Hole Driller Name Role Phone Darwin Hopper MD Primary Care Provider [phone] Allergies Active Allergy Reactions Criticality Noted Date [...] by mouth. 0 07/30/2015 Active nystatin (MYCOSTATIN) 641655 units tablet Take by mouth. 0 07/30/2015 [...] - 1-dose 75+ series) 2024 Influenza Vaccine (#1) 2025 Hepatitis B Vaccines Aged Out No long er eligible based on patient's age to complete this topic RSV Ped < 20 months Aged Out No longe r eligible based on patient's age to complete this topic Care Teams Air Hole Driller Relationship Specialty Start Date End Date Po, Darwin Wasserman MD [address] [place] [address] Dr Solor[address] [facility] In Internal Medicine [place], [place] [id number] PCP - General Internal Medicine 08/13/19
--- OUTSIDE RECORDS SUMMARY | 2025-01-10 12:53 | XMS_ITS | Patient Health Record ---
Author Organization [facility] Address [address] [place] [address] Care Team Providers Care Electrical Controls Assembler Name Role Phone CARROLL SHANNON M.D. Primary Care Provider Analilia Manning Unavailable [phone] Allergies Allergen (clinical drug ingredient) Drug/Non Drug Allergy documented on EMR Reaction Allergy Type Onset Date Status lamotrigine Lamictal Skin Rash Drug Allergy Activ e Motrin Nausea/Vomiting/ Diarrhea Drug Allergy Active estrogens, conjugated (FDC) Premarin Skin Rash Drug Allergy Active estradiol [...] even ing Orally Once a day Active Owen 3 1000 MG 1 capsule Orally Onc [...] Status Risk Notes Problem Gynecological examination abnormal (793186399442630) Encounter for gynecological examination (general) (routine) with abnormal findings (Z01.411) Active confirmed Problem Postmenopausal atrophic vaginitis (87500761) Postmenopausal atrophic vaginitis (N95.2) Active confirmed Problem Age-related osteoporosis (714850032) Age-related osteoporosis without current pathological fracture (M81.0) Active confirmed Problem Urinary incontinence (614507344) Unspecified urinary incontinence (R32) Active confirmed Problem Constipation (35358533) Constipation, unspecified (K59.00) Active confirmed Problem Anxiety state (532279838) Anxiety state, unspecified (300.00) Active confirmed Major Problem Depressive disorder (21388155) Depressive disorder, not elsewhere classified (311) Active confirmed Major Problem Dyspareunia (45521187) Dyspareunia (625.0) Active confirmed Diag Problem Female stress incontinence (08357430) Female stress incontinence (625.6) Active confirmed Major Problem Menopausal symptom (86295658) Symptomatic menopausal or female climacteric states (627.2) Active confirmed Major Problem Postmenopausal atrophic vaginitis (55860557) Postmenopausal atrophic vaginitis (627.3) Active confirmed Diag Problem Osteoporosis (77233898) Unspecified osteoporosis (733.00) Active confirmed Problem Gynecological examination normal (980274180661548) Routine gynecological examination (V72.31) Active confirmed Major Problem Screening for malignant neoplasm of colon (593138318) Special screening for malignant neoplasms, colon (V76.51) Active confirmed Major Vital Signs Temperature 97.4 degrees Fahrenheit 06/28/2024 Blood pressure diastolic 74 mm Hg 06/28/2024 Height 60.8 in 06/28/2024 Blood pressure systolic 108 mm Hg 06/28/2024 Weight 140 lbs 06/28/2024 BMI 26.62 kg/m2 06/28/2024 Encounters Encounter Location Date Provider Diagnosis [facility] 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 [employer] [address] [place] [address] 06/28/2024 Analilia Galvan Encounter for gynecological examination [...] Name:Analilia Caraballo chelitavalerierachael, 07/05/2025 03:00:00 PM, [address], [address], [place], [address], Insurance Providers Payer Name Payer Address Payer Phone Subscriber Number Group Number Insured Name Patient Relationship to Insured Coverage Start Date Coverage End Date MEDICARE [address] [place] [id number] DEONHOLLY MOLINAA Self - patient is the insured MEDEX [address] [place] [address] [phone] [id number] HOLLY TRANA Self - patient is [...]
--- OUTSIDE RECORDS SUMMARY | 2025-01-10 12:53 | XMS_ITS | Patient Health Record ---
Author Organization [facility] Address [address] [place] [address] Care Team Providers Care Mold Hoister Name Role Phone Po Darwin GONZALES Primary Care Provider Zoltan Grant Jr [phone] Allergies Allergen (clinical drug ingredient) Drug/Non Drug [...] Multi Vitamin/Minerals - 1 Orally QD Active Sumner 3 1000 MG 1 AND half capsule [...] Problem Status W/U Status Risk Notes Problem 822285355 Left lower quadr ant pain (R10.32) Active confirmed Problem 07566477 Functional diarr hea (K59.1) Active confirmed Problem 793510997 Dorsalgia, unspecified (M54.9) Active confirmed Problem 435437960 Elevated LFTs (R79.89) Active confirmed Problem 258793004 Gastroesophageal reflux disease without esophagitis (K21.9) Active confirmed Problem 73221844 Dysphagia, unspecified type (R13.10) Active confirmed Problem 030434727 Abdominal pain, LLQ (R10.32) Active confirmed Problem 286179351 Irritable bowel syndrome with constipation (K58.1) Active confirmed Problem 595615816 FH: colon polyps (Z83.71) Active confirmed Problem 307227583 LLQ pain (R10.32) Active confirmed Vital Signs Temperature 98.6 degrees Fahrenheit 10/22/2024 Blood pressure diastolic 01 mm Hg 10/22/2024 Height 61 in 10/22/2024 Blood pressure systolic 001 mm Hg 10/22/2024 Weight 131.6 lbs 10/22/2024 BMI 24.86 kg/m2 10/22/2024 Encounters Encounter Location Date Provider Diagnosis [facility] [address] [place] [address] 10/22/2024 Zoltan Vazquez Jr Gastroesophageal reflux disease without esophagitis K21.9 and Irritable bowel syndrome with constipation K58.1 [facility] [address] [place] [address] 07/11/2024 Zoltan Vazquez Jr Assessments Encounter Date [...] Name:Zoltan Melonie turner , 05/16/2025 02:15:00 PM, [address] [place] [address], [address], [place], [address], Insurance Providers Payer Name Payer Address Payer Phone Subscriber Number Group Number Insured Name Patient Relationship to Insured Coverage Start Date Coverage End Date MEDICARE OF [place] [address] [place] [address] [phone] [id number] CHELSEA KIKE Self - patient is the insured MEDEX ATTN CLAIMS [address] [place] [address] [phone] [id number] HOLLY TRANA Self - patient is the [...]
[2025-01-10 13:07] VITALS: BP 110/60; PULSE 95; TEMP 36.9; O2SAT 98; BMI 24.4
--- NOTE | 2025-01-10 13:07 | AM.OFFWIN_ITS ---
Intake Vital Signs 01/10/25 13:07 Height 5 ft 1 in Weight 129 lb 6 oz BMI 24.4 BP 110/60 Blood Pressure Location Rt brachial Position Sitting Pulse 95 Pulse Source Pulse Oximeter Temp 98.5 F Temp Source Oral Pulse Oximetry (%) 98 Oxygen Delivery Method Room Air Intake Visit Reasons: EP Swollen RT foot Intake Note: patient presents with swollen right foot times 1 month Patient Tobacco Use Status: Never used Tobacco Is last menstrual period known: No Post menopausal: Yes Patient : No Allergies lamotrigine (From LAMICTAL) Allergy (Intermediate, Verified 01/10/25 13:10) RASH Sulfa (Sulfonamide Antibiotics) (SULFA (SULFONAMIDE ANTIBIOTICS)) Allergy (Intermediate, Verified 01/10/25 13:10) UNKNOWN, upset stomach codeine (CODEINE) Allergy (Mild, Verified 01/10/25 13:10) NAUSEA & VOMITING, nausea and vomiting penicillin V (PENICILLIN V) Allergy (Mild, Verified 01/10/25 13:10) NAUSEA & VOMITING, sick to stomach, nausea and vomiting ciprofloxacin (Cipro) Allergy (Unknown, Verified 01/10/25 13:10) sick to stomach ibuprofen (From Motrin) Adverse Reaction (Verified 01/10/25 13:10) sick to stomach, nausea and vomiting HPI HPI Comments History of Present Illness Details 74 y/o Female patient who presents to [facility] walk in clinic with c/o B/L peripheral edema. She was seen by PCP's office twice for this issue, and advised to wear compression stockings. Pt refuses to wear them because they're uncomfortable and does not like the colors avaiblle to choose from. She was prescribed short course of Lasix which did not do much. She has an appointment for routine U/S Doppler 01/25 Denies SOB, CP, Wheezing or cough. FORMERLY [facility], 1928–1983 Medical History Post-nasal drip Bronchitis Numbness in feet Impacted cerumen of left ear Hoarseness Stye Hoarseness Hip pain, right Lower back pain Colon cancer screening Acute sinusitis Trigger finger of right hand Sjogren's syndrome Bile salt-induced diarrhea Osteoarthritis Irritable bowel syndrome GERD (gastroesophageal reflux disease) Essential tremor Hypercholesterolemia Calculus of left kidney Constipation Cholecystectomy planned Right knee meniscal tear Hepatitis Osteoporosis Umbilical hernia History of duodenal ulcer Liver hemangioma Surgical History Hx of tonsillectomy History of cholecystectomy Cataract History of knee surgery History of eyelid surgery H/O adenoidectomy History of appendectomy Family History Father Hypertension Prostate cancer Mother Hypertension Diabetes Dementia Maternal Aunt Gastric cancer Paternal Aunt Gastric cancer Ovarian cancer Paternal Uncle Myocardial infarction Social History Household Members: Spouse Housing: House Do you presently have visiting nurse or other home services: No Alcohol intake: never Patient Tobacco Use Status: Never used Tobacco e-Cigarette/Vaping Use: Never Used Second Hand Smoke Exposure: No Patient : No service: No Current occupational status: retired Cognitive needs: No Hearing needs: No Vision needs: Yes Review of Systems Const All systems reviewed & are unremarkable except as noted in HPI and below Physical Exam Vital Signs: Last Vital Signs Temp 98.5 F 01/10/25 13:07 Pulse 95 01/10/25 13:07 BP 110/60 01/10/25 13:07 Pulse Ox 98 01/10/25 13:07 Oxygen Delivery Method Room Air 01/10/25 13:07 BMI result Body Mass Index 24.4 Const General: no acute distress Nutritional Appearance: overweight Orientation/consciousness: patient oriented x3 Resp Effort & Inspection: normal respiratory effort Auscultation: clear to auscultation bilaterally Cardio Heart sounds: S1 normal heart sound present and S2 normal heart sound present Neuro General: patient oriented x3, gait normal and moves all extremities Extrem Right lower extremity: lower leg Details: pitting edema Details: 2+; no erythema, no tenderness, no crepitus, no deformity and no unusual warmth Left lower extremity: lower leg Details: pitting edema Details: 2+; no erythema, no tenderness, no ecchymosis, no crepitus, no foreign bodies and no deformity Psych Speech and movement: Normal speech and movement present Assessment & Plan Assessment & Plan (1) Localized swelling of both lower extremities: Code(s): M79.89 - Other specified soft tissue disorders Plan: U/S Doppler scheduled for 8/1 Compression Stockings as recommended Elevate Lower extremities when sitting or lying down. F/U with PCP. Coding Level of Care Code Est Pt Level 4 (66833) Diagnoses Localized swelling of both lower extremities M79.89 Time Spent (min) 20
== END 2025-01-10 14:07 | disposition home or self-care (01) ==
PROVIDERS: PCP Internal Medicine; Visit Provider Nurse Practitioner Family
DX: M79.89 Other specified soft tissue disorders (principal)

== ENCOUNTER → 2025-01-10 12:23 | Outpatient (BNVA) | payer MEDICARE, SELFPAY | PROVIDERS: PCP Internal Medicine; Visit Provider Nurse Practitioner Family | DX: R60.0 Localized edema (principal) | CPT/HCPCS: 99212 ==

== ENCOUNTER 2025-01-19 10:54 | Outpatient (REF) | payer MEDICARE, SELFPAY ==
--- NOTE | ~2025-01-19 | US_ITS ---
CLINICAL HISTORY: M79.89 - Other specified soft tissue disorders, r o DVT Venous duplex ultrasound bilateral lower extremity Comparison: None provided Findings: The visualized deep veins are fully compressible with normal Doppler color flow and spectral tracings. No popliteal cyst. IMPRESSION: 1. Negative for bilateral lower extremity deep vein thrombosis. This document has been electronically signed by: Guillermo Garcia MD on 01/19/2025 12:01:46
== END 2025-01-19 10:55 | disposition home or self-care (01) ==
LOC: HO.US 10:54
PROVIDERS: PCP Internal Medicine; Visit Provider Internal Medicine
DX: R60.0 Localized edema (principal)
CPT/HCPCS: 93970

== ENCOUNTER → 2025-01-19 10:57 | Outpatient (BNV) | payer MEDICARE, SELFPAY | PROVIDERS: PCP Internal Medicine; Visit Provider Radiology Diagnostic Radiology | DX: M79.89 Other specified soft tissue disorders (principal) | CPT/HCPCS: 93970 ==

== ENCOUNTER 2025-01-24 14:35 | Outpatient (AMB) | payer MEDICARE, SELFPAY ==
--- OUTSIDE RECORDS SUMMARY | 2024-11-22 11:00 | XMS_ITS ---
Author [facility] Address [address] [place] [address] Care Team Providers Care Massage Therapist Name Role Phone Darwin Hopper Primary Care Provider Unavailabl Jose Wall Unavailable [phone] Encounters Encounter Location Date Provider Diagnosis [address] [address] 11/22/2024 Jose Baker Plan Of Treatment Next Appt Details Provider Name:Jose Baker , 02/28/2025 03:15:00 PM, [address], [address], Progress Notes * Nicole NAVARRODwainB:1950 ( 74 yo F)Acc No.[id number]:11/22/2024 Progress Note Patient: Madison MORALES Provider: Bobby Baker DPM :1950 A ge:74 Y S ex:Female Date:11/22/2024 [facility] [facility] Pcp:Darwin Hopper Subjective: * Chief Complaints: * [...] 11/22/2024 Generated for Miranda mariee/Tony/Rodrigo on: 0 01/24/2025 02:41 PM EDT
[2025-01-24 14:37] VITALS: BP 108/66; PULSE 95; RESP 18; TEMP 36.2; O2SAT 98; BMI 24.2
--- NOTE | 2025-01-24 14:37 | MHC.PC.OV ---
Vital Signs 01/24/25 14:37 Height 5 ft 1 in Weight 128 lb 4 oz BMI 24.2 BP 108/66 Blood Pressure Location Rt brachial Position Sitting Respiration 18 Pulse 95 Pulse Source Pulse Oximeter Temp 97.1 F Temp Source Temporal Artery Scan Pulse Oximetry (%) 98 Oxygen Delivery Method Room Air Intake Visit Reasons: dry skin dermatitis Allergies lamotrigine (From LAMICTAL) Allergy (Intermediate, Verified 01/24/25 14:38) RASH Sulfa (Sulfonamide Antibiotics) (SULFA (SULFONAMIDE ANTIBIOTICS)) Allergy (Intermediate, Verified 01/24/25 14:38) UNKNOWN, upset stomach codeine (CODEINE) Allergy (Mild, Verified 01/24/25 14:38) NAUSEA & VOMITING, nausea and vomiting penicillin V (PENICILLIN V) Allergy (Mild, Verified 01/24/25 14:38) NAUSEA & VOMITING, sick to stomach, nausea and vomiting ciprofloxacin (Cipro) Allergy (Unknown, Verified 01/24/25 14:38) sick to stomach ibuprofen (From Motrin) Adverse Reaction (Verified 01/24/25 14:38) sick to stomach, nausea and vomiting Medication List - Last Reconciled 01/24/25 by Darwin Hopper MD alendronate 70 mg PO QWEEK alprazolam 0.5 mg PO BID PRN calcium carb and citrat-mag ox 200 mg calcium- 50 mg tabs PO cholecalciferol (vitamin D3) 25 mcg PO DAILY ciclopirox 1% topical clotrimazole 1% 1 appl topical BID compress.stocking,knee,reg,med As directed 20-30 mm HG cyclosporine 0.09% (Cequa) 1 drp ophthalmic (eye) Q12H duloxetine 120 mg PO DAILY miconazole nitrate 2% (Zeasorb AF) 1 appl topical BID multivitamin 1 tab PO DAILY nystatin 6 mL PO QID omega-3 fatty acids 1,000 mg PO DAILY omeprazole 20 mg PO DAILY pyridoxine (vitamin B6) 100 mg PO DAILY 90 days simvastatin 5 mg PO BEDTIME tobramycin-dexamethasone 0.3-0.1 % (TobraDex) ophthalmic (eye) vitamin K2 45 mcg PO DAILY Tobacco use date assessed: 01/24/25 Fall risk assessment: 1 Fall in past year Last assessed Fall Risk: 01/24/25 Dental Screening Dental Screen Date: 01/24/25 Did you have a dental visit in the last 12 months?: Yes Did you have a dental problem in the last 6 months where you did not have access to dental care?: No Was dental information given to patient?: Patient has dentist HPI dry skin dermatitis HPI Details History of Present Illness The patient is a 74-year-old female presenting for follow-up of multiple chronic conditions including Sj?gren's syndrome, hypercholesterolemia, GERD, nephrolithiasis, osteoporosis, generalized anxiety disorder, impaired glucose tolerance, and peripheral vascular disease. The patient has a history of Sj?gren's syndrome, which has been managed with regular follow-ups with rheumatology. She also has hypercholesterolemia, for which she is on simvastatin 5 mg once daily, with her last LDL cholesterol level recorded at 101 mg/dL in June 2024. The patient has been diagnosed with gastroesophageal reflux disease (GERD) and continues to follow a reflux management plan. She has a history of nephrolithiasis, which has been monitored over time. Osteoporosis was last evaluated with a bone density test in May 2023, and she is up to date with her screenings. The patient also has generalized anxiety disorder and continues with counseling and therapy as part of her management plan. Impaired glucose tolerance has been noted, with a recent blood sugar level of 134 mg/dL. The patient has peripheral vascular disease, and a recent ultrasound of the lower extremity due to swelling was negative. Health Maintenance - Bone density screening completed in May 2023 - Cholesterol management with simvastatin 5 mg daily Social History Review of Systems Physical Exam Results - Ultrasound of lower extremity: Negative for abnormalities - X-ray of chest: Minimal basilar atelectasis - X-ray of right ankle: Negative for abnormalities - Blood work (October 2024): Normal TSH, normal blood count, mild increase in MCV, normal platelet count, blood sugar 134 mg/dL, low potassium, low phosphorus - Blood work (December 04, 2024): Normal blood count, no anemia, improved electrolytes, good renal function, normal liver function tests - Cholesterol test (June 2024): LDL 101 mg/dL Plan The patient will continue to follow up with rheumatology for management of Sj?gren's syndrome. For hypercholesterolemia, the patient is advised to continue simvastatin 5 mg daily, with regular monitoring of lipid levels. Management of GERD will continue as per the reflux plan, and the patient is encouraged to adhere to dietary modifications and medications as prescribed. The patient will continue to monitor for any recurrence of nephrolithiasis symptoms and seek medical attention if necessary. Osteoporosis management includes maintaining up-to-date bone density screenings, with the next evaluation scheduled for May this year. Generalized anxiety disorder will be managed with ongoing counseling and therapy sessions. For impaired glucose tolerance, the patient is advised to monitor blood sugar levels and follow dietary recommendations to prevent progression to diabetes. Peripheral vascular disease management includes monitoring for symptoms and following up with media relations specialist as needed. Patient was informed and verbally consented to the use of an ambient scribe for clinic note documentation during this visit. Discussion Notes Patient Instructions [facility] Medical History Post-nasal drip Bronchitis Numbness in feet Impacted cerumen of left ear Hoarseness Stye Hoarseness Hip pain, right Lower back pain Colon cancer screening Acute sinusitis Trigger finger of right hand Sjogren's syndrome Bile salt-induced diarrhea Osteoarthritis Irritable bowel syndrome GERD (gastroesophageal reflux disease) Essential tremor Hypercholesterolemia Calculus of left kidney Constipation Cholecystectomy planned Right knee meniscal tear Hepatitis Osteoporosis Umbilical hernia History of duodenal ulcer Liver hemangioma Surgical History Hx of tonsillectomy History of cholecystectomy Cataract History of knee surgery History of eyelid surgery H/O adenoidectomy History of appendectomy Family History Father Hypertension Prostate cancer Mother Hypertension Diabetes Dementia Maternal Aunt Gastric cancer Paternal Aunt Gastric cancer Ovarian cancer Paternal Uncle Myocardial infarction Social History Household Members: Spouse Housing: House Do you presently have visiting nurse or other home services: No Alcohol intake: never Patient Tobacco Use Status: Never used Tobacco e-Cigarette/Vaping Use: Never Used Second Hand Smoke Exposure: No service: No Current occupational status: retired Cognitive needs: No Hearing needs: No Vision needs: Yes Questionnaire PHQ-9 Over the last 2 weeks, how often have you been bothered by any of the following problems? 1. Little interest or pleasure in doing things: more than half the days 2. Feeling down, depressed, or hopeless: several days 3. Trouble falling or staying asleep, or sleeping too much: not at all 4. Feeling tired or having little energy: several days 5. Poor appetite or overeating: more than half the days 6. Feeling bad about yourself - or that you are a failure or have let yourself or your family down: not at all 7. Trouble concentrating on things, such as reading the newspaper or watching television: not at all 8. Moving or speaking so slowly that other people could have noticed. Or the opposite - being so fidgety or restless that you have been moving around a lot more than usual: not at all 9. Thoughts that you would be better off or of hurting yourself in some way: not at all Total score: 6 Source: Developed by Drs. Benny Marcano, Gina Gonzalez, Obi Guajardo and colleagues, with an educational garcia from [employer]. Thrive Questionnaire Date Thrive assessed: 12/02/24 I am a: Patient What is your living situation today?: I have a steady place to live Within the past 12 months, did the food you bought not last and you didn't have the money to get more?: Never true Within the past 12 months, did you worry whether your food would run out before you got money to buy more?: Never true Do you have trouble paying for medicines?: No Do you have trouble getting transportation to medical appointments?: No Do you have trouble paying your heating and electricity bill?: No Do you have trouble taking care of your child, family member or friend?: Yes Do you have trouble with day-to-day activities such as bathing, preparing meals, shopping, managing finances, etc.?: No Are you currently unemployed and looking for a job?: No Are you interested in more education?: No Currently or been in a relationship where the following occur: No concerns reported THRIVE Score: 0 AUDIT C Alcohol Use Questionnaire (AUDIT-C) 1. How often do you have a drink containing alcohol?: Never 3. How often do you have six or more drinks on one occasion?: Never Total Score: 0 BENITA-7 AMB Questionnaire BENITA-7 Date BENITA - 7 assessed: 12/04/24 Feeling nervous, anxious, or on edge: 1 = Several days Not being able to stop or control worryin = Several days Worrying too much about different things: 1 = Several days Trouble relaxin = Not at all Being so restless that it is hard to sit still: 0 = Not at all Becoming easily annoyed or irritable: 1 = Several days Feeling afraid as if something awful might happen: 0 = Not at all Total BENITA-7 score (0-4 normal; 5-9 mild; 10-14 moderate; 15-21 severe): 4 Source: Developed by Drs. Benny Marcano, Gina Gonzalez, Obi Guajardo and colleagues, with an educational garcia from [employer]. Physical exam (Primary Care) Vital Signs: Last Vital Signs Temp 97.1 F 01/24/25 14:37 Pulse 95 01/24/25 14:37 Resp 18 01/24/25 14:37 BP 108/66 01/24/25 14:37 Pulse Ox 98 01/24/25 14:37 Oxygen Delivery Method Room Air 01/24/25 14:37 BMI result Body Mass Index 24.2 Tobacco/Smoking Status: Tobacco use Status Tobacco use date assessed 01/24/25 01/24/25 14:38 Patient Tobacco Use Status Never used Tobacco 01/24/25 14:38 e-Cigarette/Vaping Use Never Used 01/24/25 14:38 PHQ-9: PHQ-9 Score PHQ-9: Total score 6 01/24/25 14:53 Thrive Assessment: Date of Thrive Assessment Date Thrive assessed 12/02/24 01/24/25 14:38 Currently or been in a relationship where the following occur: No concerns reported Const General: alert; No acute distress Eyes Conjunctivae: conjunctivae normal Resp Auscultation: clear to auscultation bilaterally Cardio Rate: regular rate Rhythm: regular rhythm GI Inspection: Yes normal to inspection Extrem General: Yes normal to inspection and No edema Coding Level of Care Code Est Pt Level 4 (68589) Complex EM visit Add On G2211 Diagnoses Sjogren's syndrome, with unspecified organ involvement M35.00 Sjogren's organ involvement: unspecified organ involvement Gastroesophageal reflux disease without esophagitis K21.9 Esophagitis presence: without esophagitis Impaired fasting blood sugar R73.01 Peripheral vascular disease I73.9 Generalized anxiety disorder F41.1 Hypercholesterolemia E78.00 Osteoporosis M81.0 Tinea pedis B35.3 Assessment & Plan Assessment & Plan (1) Sjogren's syndrome: Code(s): M35.00 - Sjogren syndrome, unspecified Category: Medical Qualifiers: Sjogren's organ involvement: unspecified organ involvement Qualified Code(s): M35.00 - Sicca syndrome, unspecified Plan: Continue to follow-up with Rheumatology (2) GERD (gastroesophageal reflux disease): Code(s): K21.9 - Gastro-esophageal reflux disease without esophagitis Category: Medical Qualifiers: Esophagitis presence: without esophagitis Qualified Code(s): K21.9 - Gastro-esophageal reflux disease without esophagitis Plan: Avoid the foods that causes that usually spicy foods, tomato products, juices, coffee, soda and foods that your sensitive to. After eating do not lie down, allow 3-4 hours before in lie down. And keep the head of bed above 30 degrees to avoid the acid from going up. (3) Impaired fasting blood sugar: Code(s): R73.01 - Impaired fasting glucose Category: Medical Plan: Decrease the amount of carbohydrate intake, pasta, bread, rice and potatoes are all sugar and that is aside from all the sweet stuff, remember that fruits are good but they are Sweet also. (4) Peripheral vascular disease: Code(s): I73.9 - Peripheral vascular disease, unspecified Category: Medical Plan: When sitting down elevate the legs, exercise, and support stockings (5) Generalized anxiety disorder: Comment: Dr. Cortes Q2-3 months and counselling Q 2-3 weeks Code(s): F41.1 - Generalized anxiety disorder Category: Medical Plan: Continue with counseling and therapy (6) Hypercholesterolemia: Code(s): E78.00 - Pure hypercholesterolemia, unspecified Category: Medical Plan: Avoid fried foods, chicken skin, eggs, butter margarine, pastries and meat. Be it pork or beef they have a lot of cholesterol on simvastatin 5 mg once a day June 2024 last blood work (7) Osteoporosis: Comment: 2020 Code(s): M81.0 - Age-related osteoporosis without current pathological fracture Category: Medical Plan: Patient is up-to-date with bone density May 2023. Next bone density is May this year (8) Tinea pedis: Code(s): B35.3 - Tinea pedis Category: Medical Plan History of Present Illness The patient is a 74-year-old female presenting with concerns related to venous insufficiency, toe infection, athlete's foot, eczema, burning mouth syndrome, and suspected Sjogren's syndrome. The venous insufficiency has been a persistent issue, with the patient experiencing pain and swelling in the ankles, particularly when elevated. X-rays and other tests have ruled out bone issues, and the condition has been attributed to poor venous circulation. Conservative management with support stockings and exercises has been recommended, although the patient finds these measures uncomfortable. The patient reports a toe infection that was exacerbated by a tutorial laboratory supervisor's intervention, leading to pain and pus formation. The infection has persisted despite treatment, and the patient is concerned about potential complications such as ingrown toenails. Athlete's foot has been identified between the toes, with symptoms of itching and rash. The patient has been advised to use antifungal powder as a preventive measure. Eczema has been a chronic issue, with the patient experiencing widespread itching and rash since July. Topical treatments have been ineffective, and the patient has started Dupixent, an immunosuppressant, for systemic management. The patient also reports burning mouth syndrome, which may be related to suspected Sjogren's syndrome, an autoimmune condition. The diagnosis of Sjogren's syndrome has not been confirmed due to insufficient biopsy results, but the constellation of symptoms suggests its presence. Plan The management of venous insufficiency involves conservative measures such as wearing support stockings and engaging in exercises to improve circulation. The patient is advised to continue these measures despite discomfort, as they are crucial for managing the condition. For the toe infection, the patient should monitor for signs of ingrown toenails and avoid tight footwear to prevent exacerbation. Further intervention may be necessary if symptoms persist. Athlete's foot is being managed with the application of antifungal powder, which should be used twice daily for a month and as a preventive measure thereafter. Eczema management includes the use of Dupixent, with the understanding that it may take time to see improvement. The patient should avoid long-term use of steroid creams and consider alternative moisturizers like Aveeno. The burning mouth syndrome and suspected Sjogren's syndrome are being monitored, with the potential for Dupixent to alleviate some symptoms. The patient is encouraged to maintain hydration and follow up with specialists as needed. Patient was informed and verbally consented to the use of an ambient scribe for clinic note documentation during this visit. Medications: New miconazole nitrate 2% (Zeasorb AF) 1 appl topical BID 85 grams 0RF
--- OUTSIDE RECORDS SUMMARY | 2025-01-24 14:41 | XMS_ITS | Clinical Summary ---
Author Organization [facility] Address [address] [place] [id number] Care Team Providers Care Stamping Machine Operator Name Role Phone Darwin Hopper MD Primary Care Provider [phone] Allergies Active Allergy Reactions Criticality Noted Date [...] by mouth. 0 07/30/2015 Active nystatin (MYCOSTATIN) 639928 units tablet Take by mouth. 0 07/30/2015 [...] age to complete this topic Care Teams Stamping Machine Operator Relationship Specialty Start Date End Date Po, Darwin Wasserman MD [address] [place] [address] [address] [facility] [place], [place] [id number] PCP - General Internal Medicine 08/13/19
--- OUTSIDE RECORDS SUMMARY | 2025-01-24 14:41 | XMS_ITS | Clinical Summary ---
Author Organization [facility] Address [address] [place] [address] Phone Care Team Providers Care Usability Strategist Name Role Phone Darwin Hopper MD Primary Care Provider [phone] Surgical History Surgery Date Site/Laterality Comments ADENOIDECTOMY [...] Panel) 06/04/2022 Colorectal Cancer Screening: Colonoscopy 06/04/2022 Falls Risk Assessment 06/04/2022 Hepatitis C Screening 06/04/2022 Medicare Annual Wellness Visit 06/04/2022 Social Influencers of Health Screening 06/04/2022 Depression Screening 06/27/2024 COVID-19 Vaccine ( season) 2024 04/27/2024, 03/25/2023, [...] Region Laterality Modality Breast Bilateral Mammography 09/13/2024 3:0 7 PM EDT Impressions 09/13/2024 3:09 PM EDT No evidence of breast malignancy. BI-RADS CATEGORY: 1 - NEGATIVE RECOMMENDATION: Screening bilateral mammogram is recommended in 1 year. Mammo Location: [facility], [address] [place] [address], [address], . -------- FINAL REPORT -------- Dictated By: Geneva Coronel Dictated Date: 09/13/2024 15:07 ET Assigned Physician: Geneva Coronel Reviewed and Electronically Signed By: Geneva Coornel Signed Date: 09/13/2024 15:09 ET Workstation ID: [id number] Transcribed By: Self Edit Transcribed Date: 09/13/2024 [...] year. Mammo Location: [facility], [address] [place] [address], [address], . -------- FINAL REPORT -------- Dictated By: Geneva Coronel Dictated Date: 09/13/2024 15:07 ET Assigned Physician: Geneva Coronel Reviewed and Electronically Signed By: Geneva Coronel Signed Date: 09/13/2024 15:09 ET Workstation ID: [id number] Transcribed By: Self Edit Transcribed Date: 09/13/2024 15:07 ET us Self Referral Sppl IMG BI PROCEDURES Final Resul t * JAIME DEXA AXIAL SKELETON (07/18/2023 3:48 PM EST) Anatomical Region Laterality Modality Mammography 07/18/2023 2:51 PM EST Narrative 07/18/2023 3:48 PM EST [facility] Diagnostic Imaging Department [address] [place] [address] Patient: KIKE NAVARRO Bee /Age/Sex: 1950 - 73 - F Unit#: [id number] Location/Status: SPDIMA/REG CLI Mnemonic[facility] Ordering Physician: ANALILIA OWENS MD [facility] Dexa Axial Skeleton - 07/18/23 - 5316 Report Status:Signed History: Low estrogen state due to menopause. Personal history of fracture. Height loss. Comparison: 06/02/21 Findings: Bone densitometry is performed utilizing dual energy x-ray absorptiometry (DXA) in the [employer] unit. The lumbar spine and proximal femora [...] 25.9 percent Hip 8.1 percent. IMPRESSION: Osteoporosis. [address] Dictating Physician: BAILEY NIETO MD Electronically Signed by: BAILEY NIETO MD Dic Date/Time: 07/18/23 1547 Sign date/Time: 07/18/23 1548 Procedure Note Bailey Nieto MD - 02/13/2024 [facility] Diagnostic Imaging Department [address] [place] [address] Patient: CHELSEAKIKE./Age/Sex: 1950 - 73 - F Unit#: [id number] Location/Status: [facility]/REG CLI Mnemonic/Ordering Site: [facility] Ordering Physician: ANALILIA OWENS MD Jaime Dexa Axial Skeleton - 07/18/23 - 1525 Report Status:Signed History: Low estrogen state due to menopause. Personal history offracture. Height loss. Comparison: 06/02/21 Findings: Bone densitometry is performed utilizing dual energy x-ray absorptiometry(DXA) in the [employer] unit. The lumbar spine and proximal femora [...] 25.9 percent Hip 8.1 percent. IMPRESSION: Osteoporosis. 30263 Dictating Physician: BAILEY NIETO MD Electronically Signed by: BAILEY NIETO MD Dic Date/Time: 07/18/23 1547 Sign date/Time: 07/18/23 1548 Anaillia Owens MD IMG BI PROCEDURES Final Re sult from Last 3 Months or Most Recently Relevant to Health Maintenance Insurance MEDICARE Care Teams Usability Strategist Relationship Specialty Start Date End Date Darwin Hopper MD [address] [place] [address] [place] [address] [place] [address] PCP - General Internal Medicine 08/13/19
--- OUTSIDE RECORDS SUMMARY | 2025-01-24 14:41 | XMS_ITS | Clinical Summary ---
Author Organization [facility] Address [address] [place], [place] [address] Phone Care Team Providers Care Fish Farm Laborer Name Role Phone Darwin Hopper MD Primary Care Provider [phone] Social History Tobacco Use Types Packs/Day Years Used Date Smoking Tobacco: Never Assessed Comments Unknown Sex and Gender Information Value Date Recorded Sex Assigned at Not on file Legal Sex Female 10:04 PM EDT Gender Identity Not on file Sexual Orientation Not on file Plan of Treatment Not on file Medical Devices Not on file Insurance [employer] MEDEX SUPPLEMENT MEDICARE PART A & B [employer]OSS MEDEX SUPPLEMENT MEDICARE PART A & B [employer] MEDEX SUPPLEMENT MEDICARE PART A & B [employer] MEDEX SUPPLEMENT MEDICARE PART A & B [employer] MEDEX SUPPLEMENT MEDICARE PART A & B [employer] CROSS MEDEX SUPPLEMENT MEDICARE PART A & B Care Teams Fish Farm Laborer Relationship Specialty Start Date End Date Darwin Hopper MD [address] [facility] [address] [place] [address] PCP - General Internal Medicine 10/22/24 Additional Source Comments The information contained in this document represents components of the legal health record. It is not the complete legal health record.[facility]
--- OUTSIDE RECORDS SUMMARY | 2025-01-24 14:42 | XMS_ITS | Patient Health Record ---
Author Organization [facility] Address [address] [place] [address] Care Team Providers Care Customer Management Specialist Name Role Phone CARROLL SHANNON M.D. Primary Care Provider Analilia Manning Unavailable [phone] Allergies Allergen (clinical drug ingredient) Drug/Non Drug Allergy documented on EMR Reaction Allergy Type Onset Date Status lamotrigine Lamictal Skin Rash Drug Allergy Activ e Motrin Nausea/Vomiting/ Diarrhea Drug Allergy Active estrogens, conjugated (J[employer]) Premarin Skin Rash Drug Allergy Active estradiol [...] even ing Orally Once a day Active [place] 3 1000 MG 1 capsule Orally Onc [...] Status Risk Notes Problem Gynecological examination abnormal (604735545415014) Encounter for gynecological examination (general) (routine) with abnormal findings (Z01.411) Active confirmed Problem Postmenopausal atrophic vaginitis (50156945) Postmenopausal atrophic vaginitis (N95.2) Active confirmed Problem Age-related osteoporosis (223754153) Age-related osteoporosis without current pathological fracture (M81.0) Active confirmed Problem Urinary incontinence (456340656) Unspecified urinary incontinence (R32) Active confirmed Problem Constipation (76189693) Constipation, unspecified (K59.00) Active confirmed Problem Anxiety state (287304893) Anxiety state, unspecified (300.00) Active confirmed Major Problem Depressive disorder (98910264) Depressive disorder, not elsewhere classified (311) Active confirmed Major Problem Dyspareunia (34639054) Dyspareunia (625.0) Active confirmed Diag Problem Female stress incontinence (75368143) Female stress incontinence (625.6) Active confirmed Major Problem Menopausal symptom (80397587) Symptomatic menopausal or female climacteric states (627.2) Active confirmed Major Problem Postmenopausal atrophic vaginitis (53262720) Postmenopausal atrophic vaginitis (627.3) Active confirmed Diag Problem Osteoporosis (57909187) Unspecified osteoporosis (733.00) Active confirmed Problem Gynecological examination normal (943095834968877) Routine gynecological examination (V72.31) Active confirmed Major Problem Screening for malignant neoplasm of colon (660596566) Special screening for malignant neoplasms, colon (V76.51) Active confirmed Major Vital Signs Temperature 97.4 degrees Fahrenheit 06/28/2024 Blood pressure diastolic 74 mm Hg 06/28/2024 Height 60.8 in 06/28/2024 Blood pressure systolic 108 mm Hg 06/28/2024 Weight 140 lbs 06/28/2024 BMI 26.62 kg/m2 06/28/2024 Encounters Encounter Location Date Provider Diagnosis [facility] [employer] [address] [place] [address] 06/28/2024 Analilia Galvan Encounter for gynecological examination [...] Caraballo chelitavalerierachael, 07/05/2025 03:00:00 PM, [address], [address], [place], [address], Insurance Providers Payer Name Payer Address Payer Phone Subscriber Number Group Number Insured Name Patient Relationship to Insured Coverage Start Date Coverage End Date MEDICARE [address] [place] [id number] DEONHOLLY MOLINAA Self - patient is the insured MEDEX [address] [place] [address] [id number] HOLLY TRANA Self - patient is [...]
--- OUTSIDE RECORDS SUMMARY | 2025-01-24 14:42 | XMS_ITS | Patient Health Record ---
Author Organization [facility] Address [address] [place] [address] Care Team Providers Care Naval Special Warfare Medic Name Role Phone Po Darwin GONZALES Primary [...] Multi Vitamin/Minerals - 1 Orally QD Active [place] 3 1000 MG 1 AND half capsule [...] Problem Status W/U Status Risk Notes Problem 404097004 Left lower quadr ant pain (R10.32) Active confirmed Problem 35755868 Functional diarr hea (K59.1) Active confirmed Problem 055845336 Dorsalgia, unspecified (M54.9) Active confirmed Problem 832923742 Elevated LFTs (R79.89) Active confirmed Problem 122885599 Gastroesophageal reflux disease without esophagitis (K21.9) Active confirmed Problem 73786874 Dysphagia, unspecified type (R13.10) Active confirmed Problem 078422764 Abdominal pain, LLQ (R10.32) Active confirmed Problem 562745037 Irritable bowel syndrome with constipation (K58.1) Active confirmed Problem 816494431 FH: colon polyps (Z83.71) Active confirmed Problem 981439245 LLQ pain (R10.32) Active confirmed Vital Signs Temperature 98.6 degrees Fahrenheit 10/22/2024 Blood pressure diastolic 01 mm Hg 10/22/2024 Height 61 in 10/22/2024 Blood pressure systolic 001 mm Hg 10/22/2024 Weight 131.6 lbs 10/22/2024 BMI 24.86 kg/m2 10/22/2024 Encounters Encounter Location Date Provider Diagnosis [facility] [address] [place] [address] 10/22/2024 Zoltan Vazquez Jr Gastroesophageal reflux disease without esophagitis K21.9 and Irritable bowel syndrome with constipation K58.1 [facility] [address] [place] [address] 07/11/2024 Zoltan Vazquez Jr Assessments Encounter Date [...] Name:Zoltan Melonie turner , 05/16/2025 02:15:00 PM, [address] [place] [address], [address], [place], [address], Insurance Providers Payer Name Payer Address Payer Phone Subscriber Number Group Number Insured Name Patient Relationship to Insured Coverage Start Date Coverage End Date MEDICARE OF [place] [address] [place] [address] [phone] [id number] CHELSEA KIKE Self - patient is the insured MEDEX ATTN CLAIMS [address] [place] [address] [id number] HOLLY TRANA Self - patient is the [...]
== END 2025-01-24 15:33 | disposition home or self-care (01) ==
LOC: HO.HMCH 14:36
PROVIDERS: PCP Internal Medicine; Visit Provider Internal Medicine
DX: M35.00 Sjogren syndrome, unspecified (principal); K21.9 Gastro-esophageal reflux disease without esophagitis; R73.01 Impaired fasting glucose; I73.9 Peripheral vascular disease, unspecified; F41.1 Generalized anxiety disorder; E78.00 Pure hypercholesterolemia, unspecified; M81.0 Age-related osteoporosis without current pathological fracture; B35.3 Tinea pedis

== ENCOUNTER → 2025-01-24 14:35 | Outpatient (BNVA) | payer MEDICARE, SELFPAY | PROVIDERS: PCP Internal Medicine; Visit Provider Internal Medicine | DX: M35.00 Sjogren syndrome, unspecified (principal); K21.9 Gastro-esophageal reflux disease without esophagitis; R73.01 Impaired fasting glucose; I73.9 Peripheral vascular disease, unspecified; F41.1 Generalized anxiety disorder; E78.00 Pure hypercholesterolemia, unspecified; M81.0 Age-related osteoporosis without current pathological fracture; B35.3 Tinea pedis | CPT/HCPCS: 99212 ==

== ENCOUNTER 2025-01-25 13:42 | Outpatient (REF) | payer MEDICARE, SELFPAY ==
--- OUTSIDE RECORDS SUMMARY | 2024-11-22 11:00 | XMS_ITS ---
Author Organization [facility] Address [address] [place] [address] Care Team Providers Care Twx Operator Name Role Phone Darwin Hopper Primary Care Provider Unavailabl Jose Wall Unavailable [phone] Encounters Encounter Location Date Provider Diagnosis [address] [address] 11/22/2024 Jose Baker Plan Of Treatment Next Appt Details Provider Name:Jose Baker , 02/28/2025 03:15:00 PM, [address], [address], Progress Notes * Nicole NAVARORDwainB:1950 ( 74 yo F)Acc No.[id number]:11/22/2024 Progress Note Patient: Madison MORALES Provider: Bobby Baker DPM :1950 A ge:74 Y S ex:Female Date:11/22/2024 [facility] [facility] [id number] Pcp:Darwin Hopper Subjective: * Chief Complaints: * [...] DPM Date: 0 11/22/2024 Generated for Miranda mariee/Tony/Rodrigo on: 0 01/25/2025 01:48 PM EDT
--- NOTE | ~2025-01-25 | US_ITS ---
EXAMINATION: US LOWER EXTREMITY VENOUS (REFLUX EXAM), BILATERAL CLINICAL INFORMATION: Varices with inflammation. COMPARISON: None. TECHNIQUE: Color flow triplex imaging and compression Doppler was performed to evaluate both the deep and the superficial systems bilaterally. To evaluate the superficial system, the examination was performed in the upright position. Color-flow Doppler ultrasound and compression ultrasound were utilized. In addition, maneuvers were utilized to demonstrate reflux. FINDINGS: 1. DEEP VENOUS ULTRASOUND OF THE RIGHT LOWER EXTREMITY: Common Femoral Vein: Compressible, normal respiratory variation and augmented flow. Femoral Vein: Compressible, normal color flow and augmentation. Popliteal Vein: Compressible, normal augmentation. Deep Reflux: There is no evidence of reflux in the deep system in either the common femoral vein, superficial femoral or the popliteal vein. There is no evidence of a Welch's cyst. 2. SUPERFICIAL ULTRASOUND WITH DOPPLER OF RIGHT LOWER EXTREMITY: GREAT SAPHENOUS VEIN: Saphenofemoral Junction: 0.6 cm; Reflux: 0 ms Proximal Thigh: 0.3 cm; Reflux: 0 ms Mid Thigh: 0.3 cm; Reflux: 0 ms Distal Thigh: 0.3 cm; Reflux: 1320 ms At Knee: 0.3 cm; Reflux: 504 ms Proximal Calf: 0.2 cm; Reflux: 0 ms Mid Calf: 0.3 cm; Reflux: 0 ms Distal Calf: 0.2 cm; Reflux: 0 ms DUPLICATED MEDIAL GREAT SAPHENOUS VEIN: Diameter: 0.3 cm. Reflux: NA DUPLICATED LATERAL GREAT SAPHENOUS VEIN: Diameter: None imaged Reflux: NA SMALL SAPHENOUS VEIN: Saphenopopliteal Junction: 0.19 cm; Reflux: 0 ms Proximal: 0.15 cm; Reflux: 0 ms Distal: 0.15 cm; Reflux: 0 ms VEIN OF GIACOMINI: Size: NA Reflux: NA PERFORATORS: Location: Below the knee. Size: 0.25 cm. Reflux: NA VARICOSITIES: Location: Proximal thigh. Size: 0.3 cm. Reflux: NA 3. DEEP VENOUS ULTRASOUND OF THE LEFT LOWER EXTREMITY: Common Femoral Vein: Compressible, normal respiratory variation and augmented flow. Femoral Vein: Compressible, normal color flow and augmentation. Popliteal Vein: Compressible, normal augmentation. Deep Reflux: There is no evidence of reflux in the deep system in either the common femoral vein, superficial femoral or the popliteal vein. There is no evidence of a Welch's cyst. 4. SUPERFICIAL ULTRASOUND WITH DOPPLER OF LEFT LOWER EXTREMITY: GREAT SAPHENOUS VEIN: Saphenofemoral Junction: 0.7 cm; Reflux: 0 ms Proximal Thigh: 0.3 cm; Reflux: 0 ms Mid Thigh: 0.2 cm; Reflux: 0 ms Distal Thigh: 0.3 cm; Reflux: 0 ms At Knee: 0.2 cm; Reflux: 0 ms Proximal Calf: 0.25 cm; Reflux: 0 ms Mid Calf: 0.2 cm; Reflux: 0 ms Distal Calf: 0.2 cm; Reflux: 0 ms DUPLICATED MEDIAL GREAT SAPHENOUS VEIN: Diameter: None imaged Reflux: NA DUPLICATED LATERAL GREAT SAPHENOUS VEIN: Diameter: None imaged. Reflux: NA SMALL SAPHENOUS VEIN: Saphenopopliteal Junction: 0.2 cm; Reflux: 0 ms Proximal: 0.1 cm; Reflux: 0 ms Distal: 0.1 cm; Reflux: 0 ms VEIN OF GIACOMINI: Size: NA Reflux: NA PERFORATORS: Location: Mid thigh. Size: 0.2 cm. Reflux: NA VARICOSITIES: Location: None Imaged Size: NA Reflux: NA US/US venous insuf bilat IMPRESSION: Right: Venous insufficiency, great saphenous vein above the knee to the knee. Varices and perforators without reflux. Left: No venous insufficiency. No gross varices. Perforators without reflux. Electronically signed by: Tam Loco MD 01/25/2025 03:10 PM EDT
--- OUTSIDE RECORDS SUMMARY | 2025-01-25 13:48 | XMS_ITS | Clinical Summary ---
Author Organization [facility] Address [address] [place] [address] Phone Care Team Providers Care Savings Teller Name Role Phone Darwin Hopper MD Primary Care Provider [phone] Surgical History Surgery Date Site/Laterality Comments ADENOIDECTOMY [...] Mammo Location: [facility], [address] [place] [address], [address], . -------- FINAL REPORT -------- Dictated By: Geneva Coronel Dictated Date: 09/13/2024 15:07 ET Assigned Physician: Geneva Coronel Reviewed and Electronically Signed By: Geneva Coronel Signed Date: 09/13/2024 15:09 ET Workstation ID: [id number] Transcribed By: Self Edit Transcribed Date: 09/13/2024 [...] Mammo Location: [facility], [address] [place] [address], [address], . -------- FINAL REPORT -------- Dictated By: Geneva Coronel Dictated Date: 09/13/2024 15:07 ET Assigned Physician: Geneva Coronel Reviewed and Electronically Signed By: Geneva Coronel Signed Date: 09/13/2024 15:09 ET Workstation ID: [id number] Transcribed By: Self Edit Transcribed Date: 09/13/2024 15:07 ET us Self Referral Sppl IMG BI PROCEDURES Final Resul t * JAIME DEXA AXIAL SKELETON (07/18/2023 3:48 PM EST) Anatomical Region Laterality Modality Mammography 07/18/2023 2:51 PM EST Narrative 07/18/2023 3:48 PM EST [facility] Diagnostic Imaging Department [address] [place] [address] Patient: KIKE NAVARRO Bee /Age/Sex: 1950 - 73 - F Unit#: [id number] Location/Status: SPDIMA/REG CLI Mnemonic[facility] Ordering Physician: ANALILIA OWENS MD [facility] Dexa Axial Skeleton - 07/18/23 - 7780 Report Status:Signed History: Low estrogen state due to menopause. Personal history of fracture. Height loss. Comparison: 06/02/21 Findings: Bone densitometry is performed utilizing dual energy x-ray absorptiometry (DXA) in the [employer] unit. The lumbar spine and proximal femora [...] 25.9 percent Hip 8.1 percent. IMPRESSION: Osteoporosis. [address] Dictating Physician: BAILEY NIETO MD Electronically Signed by: BAILEY NIETO MD Dic Date/Time: 07/18/23 1547 Sign date/Time: 07/18/23 1548 Procedure Note Bailey Nieto MD - 02/13/2024 [facility] Diagnostic Imaging Department [address] [place] [address] Patient: CHELSEAKIKE./Age/Sex: 1950 - 73 - F Unit#: [id number] Location/Status: [facility]/REG CLI Mnemonic/Ordering Site: [facility] Ordering Physician: ANALILIA OWENS MD Jaime Dexa Axial Skeleton - 07/18/23 - 1525 Report Status:Signed History: Low estrogen state due to menopause. Personal history offracture. Height loss. Comparison: 06/02/21 Findings: Bone densitometry is performed utilizing dual energy x-ray absorptiometry(DXA) in the [employer] unit. The lumbar spine and proximal femora [...] 25.9 percent Hip 8.1 percent. IMPRESSION: Osteoporosis. [address] Dictating Physician: BAILEY NIETO MD Electronically Signed by: BAILEY NIETO MD Dic Date/Time: 07/18/23 1547 Sign date/Time: 07/18/23 1548 Analilia Owens MD IMG BI PROCEDURES Final Re sult from Last 3 Months or Most Recently Relevant to Health Maintenance Insurance MEDICARE Care Teams Savings Teller Relationship Specialty Start Date End Date Darwin Hopper MD [address] [place] [address] [place] [address] [place] [address] PCP - General Internal Medicine 08/13/19
--- OUTSIDE RECORDS SUMMARY | 2025-01-25 13:49 | XMS_ITS | Patient Health Record ---
Author Organization [facility] Address [address] [place] [address] Care Team Providers Care Senior Technical Analyst Name Role Phone Po Darwin GONZALES Primary Care Provider Zoltan Grant Jr [phone] Allergies Allergen (clinical drug ingredient) Drug/Non Drug [...] Multi Vitamin/Minerals - 1 Orally QD Active [place] 3 1000 MG 1 AND half capsule [...] Problem Status W/U Status Risk Notes Problem 329420726 Left lower quadr ant pain (R10.32) Active confirmed Problem 15949050 Functional diarr hea (K59.1) Active confirmed Problem 656337139 Dorsalgia, unspecified (M54.9) Active confirmed Problem 815873319 Elevated LFTs (R79.89) Active confirmed Problem 590601814 Gastroesophageal reflux disease without esophagitis (K21.9) Active confirmed Problem 38456190 Dysphagia, unspecified type (R13.10) Active confirmed Problem 418042311 Abdominal pain, LLQ (R10.32) Active confirmed Problem 874553521 Irritable bowel syndrome with constipation (K58.1) Active confirmed Problem 622070946 FH: colon polyps (Z83.71) Active confirmed Problem 931970485 LLQ pain (R10.32) Active confirmed Vital Signs Temperature 98.6 degrees Fahrenheit 10/22/2024 Blood pressure diastolic 01 mm Hg 10/22/2024 Height 61 in 10/22/2024 Blood pressure systolic 001 mm Hg 10/22/2024 Weight 131.6 lbs 10/22/2024 BMI 24.86 kg/m2 10/22/2024 Encounters Encounter Location Date Provider Diagnosis [facility] [address] [place] [address] 10/22/2024 Zoltan Vazquez Jr Gastroesophageal reflux disease without esophagitis K21.9 and Irritable bowel syndrome with constipation K58.1 [facility] [address] [place] [address] 07/11/2024 Zoltan Vazquez Jr Assessments Encounter Date [...] Name:Zoltan Melonie turner , 05/16/2025 02:15:00 PM, [address] [place] [address], [address], [place], [address], Insurance Providers Payer Name Payer Address Payer Phone Subscriber Number Group Number Insured Name Patient Relationship to Insured Coverage Start Date Coverage End Date MEDICARE OF [place] [address] [place] [address] [id number] CHELSEA KKIE Self - patient is the insured MEDEX ATTN CLAIMS [address] [place] [address] [id number] HOLLY TRANA Self - patient is the [...]
--- OUTSIDE RECORDS SUMMARY | 2025-01-25 13:49 | XMS_ITS | Clinical Summary ---
Author Organization [facility] Address [address] [place] [address] Care Team Providers Care Environmental Technician Name Role Phone Darwin Hopper MD Primary Care Provider [phone] Allergies Active Allergy Reactions Criticality Noted Date [...] by mouth. 0 07/30/2015 Active nystatin (MYCOSTATIN) 735488 units tablet Take by mouth. 0 07/30/2015 [...] age to complete this topic Care Teams Environmental Technician Relationship Specialty Start Date End Date Po, Darwin Wasserman MD [address] [place] [address] Dr [address] [facility] [place], [place] [id number] PCP - General Internal Medicine 08/13/19
--- OUTSIDE RECORDS SUMMARY | 2025-01-25 13:49 | XMS_ITS | Patient Health Record ---
Author Organization [facility] Address [address] [facility] [address] [place] [address] Care Team Providers Care Passenger Elevator Operator Name Role Phone CARROLL SHANNON M.D. Primary Care Provider Analilia Manning Unavailable [phone] Allergies Allergen (clinical drug ingredient) Drug/Non Drug Allergy documented on EMR Reaction Allergy Type Onset Date Status lamotrigine Lamictal Skin Rash Drug Allergy Activ e Motrin Nausea/Vomiting/ Diarrhea Drug Allergy Active estrogens, conjugated ([facility]) Premarin Skin Rash Drug Allergy Active estradiol [...] even ing Orally Once a day Active [place] 3 1000 MG 1 capsule Orally Onc [...] Status Risk Notes Problem Gynecological examination abnormal (379131685093867) Encounter for gynecological examination (general) (routine) with abnormal findings (Z01.411) Active confirmed Problem Postmenopausal atrophic vaginitis (52730817) Postmenopausal atrophic vaginitis (N95.2) Active confirmed Problem Age-related osteoporosis (752293559) Age-related osteoporosis without current pathological fracture (M81.0) Active confirmed Problem Urinary incontinence (667630591) Unspecified urinary incontinence (R32) Active confirmed Problem Constipation (42885768) Constipation, unspecified (K59.00) Active confirmed Problem Anxiety state (997060466) Anxiety state, unspecified (300.00) Active confirmed Major Problem Depressive disorder (22304909) Depressive disorder, not elsewhere classified (311) Active confirmed Major Problem Dyspareunia (80625918) Dyspareunia (625.0) Active confirmed Diag Problem Female stress incontinence (25238599) Female stress incontinence (625.6) Active confirmed Major Problem Menopausal symptom (12713887) Symptomatic menopausal or female climacteric states (627.2) Active confirmed Major Problem Postmenopausal atrophic vaginitis (57802730) Postmenopausal atrophic vaginitis (627.3) Active confirmed Diag Problem Osteoporosis (77615156) Unspecified osteoporosis (733.00) Active confirmed Problem Gynecological examination normal (820546268411410) Routine gynecological examination (V72.31) Active confirmed Major Problem Screening for malignant neoplasm of colon (826517206) Special screening for malignant neoplasms, colon (V76.51) Active confirmed Major Vital Signs Temperature 97.4 degrees Fahrenheit 06/28/2024 Blood pressure diastolic 74 mm Hg 06/28/2024 Height 60.8 in 06/28/2024 Blood pressure systolic 108 mm Hg 06/28/2024 Weight 140 lbs 06/28/2024 BMI 26.62 kg/m2 06/28/2024 Encounters Encounter Location Date Provider Diagnosis [facility] [email or web address] [address] [place] [address] 06/28/2024 Analilia Galvan Encounter for gynecological examination [...] PREP,HPV,MATTI IF HPV+ (>29YR)(SCRN) 03/27/2018 BONE DENSITY 02/05/2015 BONE DENSITY 06/13/2020 BONE DENSITY 06/16/2022 BONE DENSITY 06/23/2023 [facility] Screening 06/28/2024 [facility] Mammo Screening 06/23/2023 MM Digital Mammo Screening 02/05/2015 [facility] Digital Mammo Screening 06/15/2021 [facility] Digital Mammo Screening 06/16/2022 [facility] Mammo Screening 02/25/2016 [facility] Mammo Screening 06/07/2019 [facility] Mammo Screening 06/13/2020 Next Appt Details Provider Name:Analilia Caraballo chelitavalerierachael, 07/05/2025 03:00:00 PM, [address] [facility], [address], [place], [address], Insurance Providers Payer Name Payer Address Payer Phone Subscriber Number Group Number Insured Name Patient Relationship to Insured Coverage Start Date Coverage End Date MEDICARE [address] [place] [id number] DEONHOLLY MOLINAA Self - patient is the insured MEDEX [address] [place] [address] [id number] HOLLY TRANA Self - patient is [...]
--- OUTSIDE RECORDS SUMMARY | 2025-01-25 13:49 | XMS_ITS | Clinical Summary ---
Author Organization [facility] Address [address] [place] [address] Phone Care Team Providers Care Photoengraving Supervisor Name Role Phone Darwin Hopper MD Primary Care Provider [phone] Social History Tobacco Use Types Packs/Day Years Used Date Smoking Tobacco: Never Assessed Comments Unknown Sex and Gender Information Value Date Recorded Sex Assigned at Not on file Legal Sex Female 10:04 PM EDT Gender Identity Not on file Sexual Orientation Not on file Plan of Treatment Not on file Medical Devices Not on file Insurance [employer] MEDEX SUPPLEMENT MEDICARE PART A & B [employer] MEDEX SUPPLEMENT MEDICARE PART A & B [employer] MEDEX SUPPLEMENT MEDICARE PART A & B [employer] MEDEX SUPPLEMENT MEDICARE PART A & B [employer] MEDEX SUPPLEMENT MEDICARE PART A & B [employer] MEDEX SUPPLEMENT MEDICARE PART A & B Care Teams Photoengraving Supervisor Relationship Specialty Start Date End Date Darwin Hopper MD [address] [place] [address] PCP - General Internal Medicine 10/22/24 Additional Source Comments The information contained in this document represents components of the legal health record. It is not the complete legal health record.[facility]
== END 2025-01-25 13:43 | disposition home or self-care (01) ==
LOC: HO.US 13:42
PROVIDERS: PCP Internal Medicine
DX: M79.89 Other specified soft tissue disorders (principal); I73.9 Peripheral vascular disease, unspecified; I83.11 Varicose veins of right lower extremity with inflammation
CPT/HCPCS: 93970

== ENCOUNTER → 2025-01-25 13:45 | Outpatient (BNV) | payer MEDICARE, SELFPAY | PROVIDERS: PCP Internal Medicine; Visit Provider Radiology Diagnostic Radiology | DX: I83.813 Varicose veins of bilateral lower extremities with pain (principal) | CPT/HCPCS: 93970 ==

== ENCOUNTER 2025-03-12 13:44 | Outpatient (AMB) | payer MEDICARE, SELFPAY ==
--- OUTSIDE RECORDS SUMMARY | 2024-07-05 11:55 | XMS_ITS ---
Author Organization [facility] Address [address] [place] [address] Care Team Providers Care Glass Silverer Name Role Phone Darwin Hopper MD Primary Care Provider Zoltan Grant Jr [phone] REASON FOR VISIT IBS,gerd Encounters Encounter Location Date Provider Diagnosis [facility] [address] [facility] [address] [place] [address] 07/05/2024 Zoltan Vazquez Jr Plan Of Treatment Next Appt Details Provider Name:Zoltan turner Jr, 05/16/2025 02:15:00 PM, [address] [facility], [address], [place], [address], Progress Notes * KIKE TRANDOB:1950 (74 yo F)Acc No.[id number]:07/05/2024 Progress Notes Patient: KIKE MORALES Provider: Adeline Vazquez MD :1950 A ge:74 Y S ex:Female Date:07/05/2024 Address:[address] [place] [address] [id number] Pcp:Darwin Hopper MD Subjective: * Chief Complaints: [...] 0 07/05/2024 Generated for Miranda mariee/Tony/Rodrigo on: 0 03/12/2025 05:36 PM EDT
--- OUTSIDE RECORDS SUMMARY | 2024-07-12 10:15 | XMS_ITS ---
Author Organization [facility] Address [address] [place] [address] Care Team Providers Care Combat Systems Operator Name Role Phone Darwin Hopper MD Primary Care Provider Zoltan Grant Jr [phone] REASON FOR VISIT IBS,gerd Encounters Encounter Location Date Provider Diagnosis [facility] [address] [facility] [address] [place] [address] 07/12/2024 Zoltan Vazquez Jr Plan Of Treatment Next Appt Details Provider Name:Zoltan turner Jr, 05/16/2025 02:15:00 PM, [address] [facility], [address], [place], [address], Progress Notes * KIKE TRANDOB:1950 (74 yo F)Acc No.[id number]:07/12/2024 Progress Notes Patient: KIKE MORALES Provider: Adeline Vazquez MD :1950 A ge:74 Y S ex:Female Date:07/12/2024 Address:[address] [place] [address] [id number] Pcp:Darwin Hopper MD Subjective: * Chief Complaints: [...] 0 07/12/2024 Generated for Miranda mariee/Tony/Rodrigo on: 0 03/12/2025 05:37 PM EDT
--- OUTSIDE RECORDS SUMMARY | 2024-11-22 11:00 | XMS_ITS ---
Author Organization [facility] Address [address] [place] [address] Care Team Providers Care Steel Wheel Engraver Name Role Phone Darwin Hopper Primary Care Provider Unavailabl Jacki Sadler Unavailable [phone] Jose Baker [phone] Encounters Encounter Location Date [facility] [address] 11/22/2024 Jose Baker Plan Of Treatment Next Appt Details Provider Name:Jacki koenig, 05/13/2025 02:00:00 PM, [address] [place], [address], Progress Notes * DEONNicole MOLINADwainB:1950 ( 74 yo F)Acc No.[id number]:11/22/2024 Progress Note Patient: Madison MORALES Provider: Bobby Baker DPM :1950 A ge:74 Y S ex:Female Date:11/22/2024 Address:[address] [facility] [place] Pcp:Darwin Hopper Subjective: * Chief Complaints: * [...] 0 11/22/2024 Generated for Miranda mariee/Josh on: 0 03/12/2025 05:36 PM EDT
--- OUTSIDE RECORDS SUMMARY | 2025-03-08 05:00 | XMS_ITS ---
[facility] Address [address] [place] [address] Care Team Providers Care Corporate Legal Intern Name Role Phone Darwin Hopper Primary Care Provider Jacki Christianson Unavailable [phone] Allergies Allergen (clinical drug ingredient) Drug/Non Drug Allergy documented on EMR Reaction Allergy Type Onset Date Status codeine Codeine upset stomach Drug Allergy Act alexander Substance with sulfonamide structure and antibacterial mechanism of action (substance) Sulfa Antibiotics rash Drug Allergy Active REASON FOR VISIT Fungal Nails Medications Medication SIG (Take, Route, Frequency, Duration) Notes Start Date End Date Status Omeprazole 20 MG 1 capsule 30 minutes before morning meal Orally Once a day; Duration: 30 day(s) Active Ammonium Lactate 12 % 1 application Externally to feet except for between the toes Twice a day; Duration: 30 days Active Multivitamin Active Triamcinolone Acetonide 0.1 % External; Duration: 30 Days Active Ciclopirox 1 % PLEASE SEE ATTACHED FOR DETAILED DIRECTIONS External; Duration: 30 Days Active Calcium Magnesium Ac tive Probiotic Active Vitamin B6 Active Simvastatin 5 MG 1 tablet in the even ing Orally Once a day Active [place] 3 Active Opzelura 1.5 % 1 application Externally Twice a day Active Xanax prn Active Cequa 0.09 % 1 drop into affected eye Ophthalmic every 12 hrs Active Cymbalta Active Vitamin D Active Fluticasone Propionate Not-Taking Dupixent 300 MG/2ML 2 mL Subcutaneous Active traZODone HCl 100 MG 1 tablet at bedtime Orally Once a day; Duration: 30 day(s) Not-Taking Asenapine Maleate 2.5 MG 2 tablets under the tongue and allow to dissolve Sublingual Twice a day; Duration: 30 day(s) Not-Taking Lexapro 10 MG 1 tablet Orally Once a day; Duration: 30 day(s) Not-Taking SEROquel 25 MG 1 tablet at bedtime Orally Once a day Not-Taking ALPRAZolam 0.5 MG 1 tablet Orally Twic e a day Not-Taking Metoprolol Succinate Not-Taking Social History Tobacco Use: Social History Observation Description Date Details (start date - stop date) Never Smoker NA - NA Tobacco use other than smoking: Question Answer Notes Are you an other tobacco user? No Tobacco Control (Standard) Question Answer Notes Tobacco use: Nonsmoker Additional Findings: Tobacco non-user Current no nsmoker AUDIT-C (Standard) Question Answer Notes Did you have a drink containing alcohol in the p ast year? No Points 0 Interpretation Negative Problems Problem Type SNOMED Code ICD Code Onset Dates Problem Status W/U Status Risk Notes Problem Acquired hallux valgus (21148655) Hallux valgus (acquired), right foot (M20.11) Active confirmed Vital Signs Height 4ft 11in in 03/08/2025 Weight 132 lbs 03/08/2025 BMI 26.66 kg/m2 03/08/2025 Blood pressure systolic 126 mm Hg 03/08/20 25 Blood pressure diastolic 65 mm Hg 025 Encounters Encounter Location Date Provider Diagnosis [facility] [address] [address] 03/08/2025 Jacki Leon Pain in right toe(s) M79.674 ; Onychomycosis B35.1 and Pain in left toe(s) M79.675 Assessments Encounter Date Diagnosis (ICD Code) Assessment Notes Treatment Notes Treatment Clinical Notes Section Notes 03/08/2025 Pain in right toe(s) (ICD-10 - M79.674) 03/08/2025 Onychomycosis (ICD-10 - B35.1) 03/08/2025 Pain in left toe(s) (ICD-10 - M79.675) Plan Of Treatment Pending Test Test Name Order Date *Liver Function Test (LFT) 03/08/2025 Next Appt Details Follow Up: 2-3 Months, Ayaka n: Provider Name:Jacki koenig, 05/13/2025 02:00:00 PM, [address] [facility], [place], [address], Progress Notes * Rose NAVARROB:1950 ( 74 yo F)Acc No.[id number]:03/08/2025 Progress Note Patient: Madison MORALES Provider: Heike Leon DPM :1950 A ge:74 Y S ex:Female Date:03/08/2025 Address:[address] [place] [address], [facility] Pcp:Darwin Hopper Subjective: * Chief Complaints: * F ungal Nails * HPI: P ainful Nails: Nature: a svitlana, tender, discolored, thick. Location: B ot feet. Duration: s everal years. Course: w orse. Aggravated by: s hoegear causing difficulty standing/walking. Treatments: n one. * ROS: G eneral/Constitutional: Nausea d enies. V omiting d enies. H nam Thirst d enies. L oss appetite d enies. C hills d enies. F atigue d enies.?Fever d enies. N ight Sweats d enies. U nexplained weight loss d enies. U nexplained weight gain d enies. H EENTM: Dentures d enies. D izziness d enies. G lasses/contacts a dmits. R etinopathy d enies. B lurred/double vision d enies. T MJ?admits. D ischarge/drainage d enies. I mplants d enies. S ore throat d enies. D ental implants a dmits. H neftali of hearing d enies. D ifficulty chewing/swallowing/speaking d enies. N ose bleeds d enies. S ore mouth d enies. ? R espiratory: On Oxygen d enies. P neumonia/pleurisy d enies.?Bronchitis d enies. E mphysema d enies. C oughing d enies. C ough blood?denies. S hortness of breath d enies. W heezing d enies. C ardiovascular: Pacemaker d enies. M CUSTODIAN d enies. W PW d enies. C HF d enies. H eart attack d enies. S eptal defect d enies. R apid beat d enies. C hest pain d enies. A trial Fib. d enies. M urmur/Palpitations d enies. G astrointestinal: Hemorrhoids d enies. S tomach/Abdominal pain d enies. D ark blood stool d enies. I rritable bowel a dmits. C onstipation d enies. D iarrhea d enies. H ematology: Swelling d enies. C lots d enies. V aricose Veins d enies. B ruising d enies. B leeding problem d enies. G enitourinary: Blood urine d enies. F requent/Painfu/urination/bladder control d enies. K idney stones d enies. I nfection (UTI) d enies. N ephropathy d enies. s ex trans dis (STD) d enies. P rostate d enies. M usculoskeletal: Hammertoes d enies. B unions a dmits. B ack Pain a dmits. M uscle Cramps/ Resting d enies. M uscle cramps / walking d enies.?Generalized aches and pains d enies. W eakness d enies. I nteg.: Aldana d enies. S cars d enies. C orns/calluses?admits. I ngrown nails a dmits. P ainful nails a dmits. O pen Sores d enies. R ashes d enies. N eurologic: Difficulty sleeping d enies. B rain disorder d enies. N umbness d enies. B alance trouble d enies. C onfusion d enies. F ainting/blackouts d enies. T ingling d enies. T remors d enies. * Medical History: * Surgical History: t onsillectomy and adenoidectomy 1959appendectomy 1998Gall bladder removal 2000trigger finger release knee surgery, right 2016 * Hospitalization/Major Diagno stic Procedure: D enies Past Hospitalization * Family History: M other: , foot problems, diagnosed with Diabetic - NIDDM, Family history of arthritis. F ather: . * Social History: T obacco Use: T obacco use other than smoking A re you an other tobacco user? N o Tobacco Control (Standard) T obacco use: N onsmoker A dditional Findings: Tobacco non-user C urrent nonsmoker M iscellaneous: C affeine: no. Children: no. Home smoke detector use: no. Marital status: . Occupation: Retired, [employer] D rug/Alcohol: A KESHAWN-C (Standard) D id you have a drink containing alcohol in the past year? N o P oints 0 I nterpretation N egative * Medications: T akingDupixent 300 MG/2ML Solution Prefilled Syringe 2 mL Subcutaneous Opzelura 1.5 % Cream 1 application Externally Twice a day Xanax , Notes to Pharmacist: prnCymbalta Vitamin D Cequa 0.09 % Solution 1 drop into affected eye Ophthalmic every 12 hrs [place] 3 Simvastatin 5 MG Tablet 1 tablet in the evening Orally Once a day Probiotic Vitamin B6 Calcium Magnesium Multivitamin Omeprazole 20 MG Capsule Delayed Release 1 capsule 30 minutes before morning meal Orally Once a day Ammonium Lactate 12 % Cream 1 application Externally to feet except for between the toes Twice a day Triamcinolone Acetonide 0.1 % Cream External Ciclopirox 1 % Shampoo PLEASE SEE ATTACHED FOR DETAILED DIRECTIONS External Taking Dupixent 300 MG/2ML Solution Prefilled Syringe 2 mL Subcutaneous Taking Opzelura 1.5 % Cream 1 application Externally Twice a day Taking Xanax , Notes to Pharmacist: prnTaking Cymbalta Taking Vitamin D Taking Cequa 0.09 % Solution 1 drop into affected eye Ophthalmic every 12 hrs Taking [place] 3 Taking Simvastatin 5 MG Tablet 1 [...] Taking Triamcinolone Acetonide 0.1 % Cream External Taking Ciclopirox 1 % Shampoo PLEASE SEE ATTACHED FOR DETAILED DIRECTIONS External Not-Taking/PRNALPRAZolam 0.5 MG Tablet 1 tablet Orally Twice a day Metoprolol Succinate SEROquel 25 MG Tablet 1 tablet [...] List reviewed and reconciled with the patientNot-Taking/PRN ALPRAZolam 0.5 MG Tablet 1 tablet Orally Twice a day Not-Taking/PRN Metoprolol Succinate Not-Taking/PRN SEROquel 25 MG Tablet [...] reviewed and reconciled with the patient * Allergies: S ulfa Antibiotics: rashCodeine: upset stomachyes[Allergies Verified] Objective: * Vitals: H t:4ft 11in, Wt:132, BMI:26.66, Shoe size:6-6.5, BP:126/65mm Hg, Ht-cm: 149.86 cm, Wt-k.87 kg. * Examination: N ails: NAILS are: E longated, overgrown, dystrophic, lytic, greater than 3mm thick, discolored and friable with crumbly malodorous subungual debris, with pain on palpation T A, T1, T2, T3, T4, T5, T6, T7, T8, T9. D ermatologic: SKIN FINDINGS: S kin exam reveals Keratotic lesion(s) located at , SUB MTH (s) , 1 , B/L. O rthopedic: MUSCLE STRENGTH: 5 /5 all groups in a symmetrical fashion, B/L. BUNION: Medially prominent 1st MPJ,(+) Pain on palpation,inflammation present medially,Lateral tracking 1st MPJ incompletely reducible, LEFT. N eurological: SENSORY: N eurological exam reveals intact sensorium, pain sensation normal, vibration sensation intact, pinprick sensation is normal in the lower extremities, Pt denies, anesthesia, burning, paresthesia, tingling, B/L. TINEL'S COMPRESSION: Negative, Saphenous nerve distribution. G eneral Examination: GENERAL APPEARANCE: Xochilt long a pleasant, alert, well nourished, well-developed, well hydrated individual, who demonstrates proper attention to hygiene/body habitus, and is in no acute distress, Pt serves as own historian for office visit today. ORIENTED: p erson, place, and time. Assessment: * Assessment: 1. P ain in right toe(s) - M79.674 2 . O nychomycosis - B35.1 (Primary)? Specify :Chronic problem, Worse (4) 3 . P ain in left toe(s) - M79.675 Plan: * Treatment: * Procedure Codes: * Preventive Medicine: Counseling: D iscussion: - 14: Office or other outpatient visit for the evaluation and management of an established patient, which required a medically appropriate history and/or examination and MODERATE level of DECISION MAKING for: 1 OR MORE CHRONIC PROBLEM(S) THATS WORSENING, 2 STABLE CHRONIC PROBLEMS, A NEWLY DIAGNOSED PROBLEM WITH UNCERTAIN PROGNOSIS, AN ACUTE COMPLICATED INJURY WITH MULTIPLE TREATMENT OPTIONS, OR AN ACUTE PROBLEM WITH ACCOMPANYING SYSTEMIC SYMPTOMS, THAT POSE(S) A MODERATE RISK OF MORBIDITY. THIS CONDITION MAY ALSO INCLUDE RX DRUG MANAGEMENT, OR A DECISON FOR MINOR SURGERY. The visit on the day of the [...] have encouraged the patient to call the office. F ungal Nail Counseling: T he patient was counseled on the diagnosis, potential etiologies (including, but not limited to, environmental factors, genetic, immune deficiency), and the multiple treatment options for Onychomycosis. We discussed the risks and benefits of each option from performing no treatment, to ultraviolet light shoe treatment, to laser nail treatment, to applying topical antifungals, to taking oral antifungal medication, to surgical removal of the involved nail(s) with or without performing a matricectomy, or any combination thereof. We discussed the advantages and disadvantages of each of possible treatment and importance for adherence to all the recommended therapies for optimum success. This includes the necessity for weekly emery board self nail home debridements, and control the nail and skin environment as much as possible by only using a fresh, dry pair of shoes/socks each day, as well as keeping the skin as dry as possible through the use of sprays/powders if necessary. The patient was instructed to discard the emery board after use to prevent reinfection of the involved nail(s). We discussed the mycological and visual clinical effectiveness of topical vs oral antifungal treatments as well as each ones potential side effects and/or any patient-specific medication interactions. We discussed the reasons behind the important requirement of regular liver function testing with oral antifungal therapy for safety. Patient questions regarding use, dosage, successful outcomes, blood tests, and possible pharmaceutical interactions were reviewed and the patient verbalized that all answers were clearly understood. Screening/Special Tests: F all Risk Screening: N o falls in the past year F ALLS: Screening for Future Fall Risk Have you had any falls with injury in the past year? N o * Follow Up: 2 -3 Months * Images: * Sign off status: Completed true * Provider: Heike Leon DPM Date: 03/08/2025 Generated for Miranda mariee/Tony/Rodrigo on: 03/12/2025 05:36 PM EDT History and Physical Notes * HPI (History of Present Illness) Category Sub-Category Detail Notes Category Not es Painful Nails Aggravated by: shoegear causing difficulty standing/walking Course: worse Duration: several years Location: Both feet Nature: aching, tender, disc olored, thick Treatments: none Examination Category Sub-Category Detail Notes Category Not [...] today ORIENTED: person, place, and t fahad Nails NAILS are: Elongated, overg rown, dystrophic, lytic, greater than 3mm thick, discolored and friable with crumbly malodorous subungual debris, with pain on palpation TA, T1, T2, T3, T4, T5, T6, T7, T8, T9
--- NOTE | 2025-03-12 13:58 | A.OFFVIS_ITS ---
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 Patient states her legs have been swelling. The right one is worse. Patient had a fall on the right leg around 3 months ago. Had a ultrasound on January. Was given lasix february 01 for two weeks to help with the swelling. She states it did not help. She gets bilateral leg cramps. Accompanied by: Self / Same As Patient Allergies lamotrigine (From LAMICTAL) Allergy (Intermediate, Verified 03/12/25 14:05) RASH Sulfa (Sulfonamide Antibiotics) (SULFA (SULFONAMIDE ANTIBIOTICS)) Allergy (Intermediate, Verified 03/12/25 14:05) UNKNOWN, upset stomach codeine (CODEINE) Allergy (Mild, Verified 03/12/25 14:05) NAUSEA & VOMITING, nausea and vomiting penicillin V (PENICILLIN V) Allergy (Mild, Verified 03/12/25 14:05) NAUSEA & VOMITING, sick to stomach, nausea and vomiting ciprofloxacin (Cipro) Allergy (Unknown, Verified 03/12/25 14:05) sick to stomach ibuprofen (From Motrin) Adverse Reaction (Verified 03/12/25 14:05) sick to stomach, nausea and vomiting HPI HPI 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 The swelling began without any apparent cause and has not occurred previously. She has been advised to wear compression socks, which have not alleviated the swelling. The patient also reports an ingrown toenail that developed an infection, which was treated by a freight car loader. The freight car loader drained pus from the toe and applied a Band-Aid and ointment. Despite treatment, she continues to experience issues with the toe. The patient has a history of eczema, for which she is receiving Dupixent injections and UVB light therapy. The eczema is being treated as the cause of her skin condition, although the exact diagnosis is uncertain. She also developed a fungal infection between her toes, initially treated with a cream and later with a medicated powder, neither of which were effective. Currently, she is using Tinactin for the fungal infection. A venous ultrasound indicated venous insufficiency in a small area of the right foot, but this was not considered significant enough to cause the swelling. The patient has no history of cancer, chemotherapy, or radiation therapy. She has undergone appendectomy and cholecystectomy, both performed laparoscopically. [facility] Medical History Post-nasal drip Bronchitis Numbness in feet Impacted cerumen of left ear Hoarseness Stye Hoarseness Hip pain, right Lower back pain Colon cancer screening Acute sinusitis Trigger finger of right hand Sjogren's syndrome Bile salt-induced diarrhea Osteoarthritis Irritable bowel syndrome GERD (gastroesophageal reflux disease) Essential tremor Hypercholesterolemia Calculus of left kidney Constipation Cholecystectomy planned Right knee meniscal tear Hepatitis Osteoporosis Umbilical hernia History of duodenal ulcer Liver hemangioma Surgical History Hx of tonsillectomy History of cholecystectomy Cataract History of knee surgery History of eyelid surgery H/O adenoidectomy History of appendectomy Family History Father Hypertension Prostate cancer Mother Hypertension Diabetes Dementia Maternal Aunt Gastric cancer Paternal Aunt Gastric cancer Ovarian cancer Paternal Uncle Myocardial infarction Social History Household Members: Spouse Housing: House Do you presently have visiting nurse or other home services: No Alcohol intake: never Patient Tobacco Use Status: Never used Tobacco e-Cigarette/Vaping Use: Never Used Second Hand Smoke Exposure: No service: No Current occupational status: retired Cognitive needs: No Hearing needs: No Vision needs: Yes Review of Systems Const All systems reviewed & are unremarkable except as noted in HPI and below Reports no additional complaints ENT Reports Normal hearing present Card Denies chest pain, Denies chest pain at rest, Denies chest pain with activity and Denies pedal edema Resp Denies cough GI Denies abdominal pain Musc Denies abnormal gait, Denies muscle cramps and Denies radiating pain into limb Skin/Breast Denies skin ulcer and Denies wounds Neuro Reports Normal hearing present and Denies abnormal gait Psych Reports no additional complaints Physical Exam Const General: cooperative, healthy appearing and comfortable Orientation/consciousness: oriented to person, oriented to place and oriented to time HEENT Head: Yes normal to inspection Neck Neck: Yes normal visual inspection Carotids: no bruits Chest Chest palpation & inspection: normal inspection of the chest Resp Effort & Inspection: normal respiratory effort and able to speak in complete sentences Auscultation: clear to auscultation bilaterally, no crackles, no rales, no rhonchi and no wheezes Cardio Rate: regular rate Rhythm: regular rhythm Heart sounds: S1 normal heart sound present and S2 normal heart sound present Bruits: no carotid bruits Peripheral pulses: Peripheral pulses 2+ throughout GI Inspection: Yes normal to inspection Skin Wounds: no wounds Hair: normal Neuro General: oriented to person, oriented to place and oriented to time Cranial nerves: Yes CN's II-XII intact bilaterally and Yes Normal hearing present Cognition (Neuro): normal cognition Motor exam (neuro): 5/5 motor strength present throughout Extrem Other: venous exam: No significant superficial varicosities or spider telangiect asias, minimal edema General: No clubbing, No cyanosis and No edema Psych Appearance: grossly normal Mental Status: mental status grossly normal Speech and movement: Normal speech and movement present Results Reviewed Results Reviewed: Brief summary of venous insufficiency testing is as follows: right great saphenous vein: negative right small saphenous vein: negative right accessory vein: none present left great saphenous vein: negative left small saphenous vein: negative left accessory vein: none present Please note there is no evidence of any venous aneurysms or significant tortuos ity Assessment & Plan Assessment & Plan (1) Varicose veins of right lower extremity: Code(s): I83.91 - Asymptomatic varicose veins of right lower extremity Category: Medical Qualifiers: Varicose vein complication: unspecified Qualified Code(s): I83.91 - Asymptomatic varicose veins of right lower extremity Plan: I discussed with the patient that the venous ultrasound showed venous insufficiency in a small area of the right foot, but it is unlikely to be the cause of the swelling. I explained that an arterial ultrasound will be ordered to further investigate potential arterial causes. We also discussed the possibility of a rheumatologic condition contributing to her symptoms and the potential need for steroids in the future. (2) Peripheral vascular disease: Code(s): I73.9 - Peripheral vascular disease, unspecified Category: Medical Plan: We will obtain noninvasive arterial testing to rule that out as a source of pain and discomfort for her. Orders: Orders US arterial duplex LE BI Today I73.9 - Peripheral vascular disease, unspecified Coding Level of Care Code Est Pt Level 4 (35527) Diagnoses Varicose veins of right lower extremity, unspecified whether complicated I83.91 Varicose vein complication: unspecified Peripheral vascular disease I73.9
--- OUTSIDE RECORDS SUMMARY | 2025-03-12 17:36 | XMS_ITS | Clinical Summary ---
Author Organization [facility] Address [address] [place] [address] Phone Care Team Providers Care Stonework Tracer Name Role Phone Darwin Hopper MD Primary Care Provider Surgical History Surgery Date Site/Laterality Comments ADENOIDECTOMY [...] Depression Screening 06/27/2024 COVID-19 Vaccine ( season) 2025 04/27/2024, 03/25/2023, 04/21/2022, Additional history exists Influenza [...] year. Mammo Location: [facility], [address] [place] [address], [address], . -------- FINAL REPORT -------- Dictated By: Geneva Coronel Dictated Date: 09/13/2024 15:07 ET Assigned Physician: Geneva Coronel Reviewed and Electronically Signed By: Geneva Coronel Signed Date: 09/13/2024 15:09 ET Workstation ID: [id number] Transcribed By: Self Edit Transcribed Date: 09/13/2024 [...] year. Mammo Location: [facility], [address] [place] [address], [address], . -------- FINAL REPORT -------- Dictated By: Geneva Coronel Dictated Date: 09/13/2024 15:07 ET Assigned Physician: Geneva Coronel Reviewed and Electronically Signed By: Geneva Coronel Signed Date: 09/13/2024 15:09 ET Workstation ID: [id number] Transcribed By: Self Edit Transcribed Date: 09/13/2024 15:07 ET us Self Referral Sppl IMG BI PROCEDURES Final Resul t * JAIME DEXA AXIAL SKELETON (07/18/2023 3:48 PM EST) Anatomical Region Laterality Modality Mammography 07/18/2023 2:51 PM EST Narrative 07/18/2023 3:48 PM EST [facility] Diagnostic Imaging Department [address] [place] [address] Patient: KIKE NAVARRO Bee /Age/Sex: 1950 - 73 - F Unit#: [id number] Location/Status: SPDIMA/REG CLI [facility]em[facility] Ordering Physician: ANALILIA OWENS MD [facility] Dexa Axial Skeleton - 07/18/23 - [id number] Report Status:Signed History: Low estrogen state due to menopause. Personal history of fracture. Height loss. Comparison: 06/02/21 Findings: Bone densitometry is performed utilizing dual energy x-ray absorptiometry (DXA) in the bLife unit. The lumbar spine and proximal femora [...] 25.9 percent Hip 8.1 percent. IMPRESSION: Osteoporosis. 53676 Dictating Physician: BAILEY NIETO MD Electronically Signed by: BAILEY NIETO MD Dic Date/Time: 07/18/23 1547 Sign date/Time: 07/18/23 1548 Procedure Note Bailey Nieto MD - 02/13/2024 [facility] Diagnostic Imaging Department [address] [place] [address] Patient: DEONJESSEKIKE./Age/Sex: 1950 - 73 - F Unit#: [id number] Location/Status: [facility]/REG CLI Mnemonic[facility] Ordering Physician: ANALILIA OWENS MD Jaime Dexa Axial Skeleton - 07/18/23 - 5974 Report Status:Signed History: Low estrogen state due to menopause. Personal history offracture. Height loss. Comparison: 06/02/21 Findings: Bone densitometry is performed utilizing dual energy x-ray absorptiometry(DXA) in the bLife unit. The lumbar spine and proximal femora [...] 25.9 percent Hip 8.1 percent. IMPRESSION: Osteoporosis. 34065 Dictating Physician: BAILEY NIETO MD Electronically Signed by: BAILEY NIETO MD Dic Date/Time: 07/18/23 1547 Sign date/Time: 07/18/23 1548 Analilia Owens MD IMG BI PROCEDURES Final Re sult from Last 3 Months or Most Recently Relevant to Health Maintenance Insurance MEDICARE Care Teams Stonework Tracer Relationship Specialty Start Date End Date Darwin Hopper MD [address] [place] [address] [place] [address] [place] [address] PCP - General Internal Medicine 08/13/19
--- OUTSIDE RECORDS SUMMARY | 2025-03-12 17:37 | XMS_ITS | Patient Health Record ---
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6 degrees Fahrenheit 10/22/2024 Blood pressure diastolic 01 mm Hg 10/22/2024 Height 61 in 10/22/2024 Blood pressure systolic 001 mm Hg 10/22/2024 Weight 131.6 lbs 10/22/2024 BMI 24.86 kg/m2 10/22/2024 Encounters Encounter Location Date Provider Diagnosis [facility] [address] [place] [address] 10/22/2024 Zoltan Vazquez Jr Gastroesophageal reflux disease without esophagitis K21.9 and Irritable bowel syndrome with constipation K58.1 [facility] [address] [place] [address] 07/11/2024 Zoltan Vazquez Jr Assessments Encounter Date [...] Name:Zoltan Melonie turner , 05/16/2025 02:15:00 PM, [address] [place] [address], [address], [place], [address], Insurance Providers Payer Name Payer Address Payer Phone Subscriber Number Group Number Insured Name Patient Relationship to Insured Coverage Start Date Coverage End Date MEDICARE OF [place] [address] [place] [address] [id number] CHELSEA KIKE Self - patient is the insured MEDEX ATTN CLAIMS [address] [place] [address] [id number] HOLLY TRANA Self - patient is the [...]
--- OUTSIDE RECORDS SUMMARY | 2025-03-12 17:37 | XMS_ITS | Patient Health Record ---
Author Organization [facility] Address [address] [place] [address] Care Team Providers Care Chancellor Name Role Phone CARROLL SHANNON M.D. Primary Care Provider Analilia Manning Unavailable [phone] Allergies Allergen (clinical drug ingredient) Drug/Non Drug Allergy documented on EMR Reaction Allergy Type Onset Date Status lamotrigine Lamictal Skin Rash Drug Allergy Activ e Motrin Nausea/Vomiting/ Diarrhea Drug Allergy Active estrogens, conjugated ([facility]) Premarin Skin Rash Drug Allergy Active [...] even ing Orally Once a day Active Amity 3 1000 MG 1 capsule Orally Onc [...] Status Risk Notes Problem Gynecological examination abnormal (705469442104276) Encounter for gynecological examination (general) (routine) with abnormal findings (Z01.411) Active confirmed Problem Postmenopausal atrophic vaginitis (36802642) Postmenopausal atrophic vaginitis (N95.2) Active confirmed Problem Age-related osteoporosis (379929285) Age-related osteoporosis without current pathological fracture (M81.0) Active confirmed Problem Urinary incontinence (829072461) Unspecified urinary incontinence (R32) Active confirmed Problem Constipation (63374872) Constipation, unspecified (K59.00) Active confirmed Problem Anxiety state (544108508) Anxiety state, unspecified (300.00) Active confirmed Major Problem Depressive disorder (93997882) Depressive disorder, not elsewhere classified (311) Active confirmed Major Problem Dyspareunia (47906639) Dyspareunia (625.0) Active confirmed Diag Problem Female stress incontinence (06796111) Female stress incontinence (625.6) Active confirmed Major Problem Menopausal symptom (03116335) Symptomatic menopausal or female climacteric states (627.2) Active confirmed Major Problem Postmenopausal atrophic vaginitis (08583122) Postmenopausal atrophic vaginitis (627.3) Active confirmed Diag Problem Osteoporosis (17040536) Unspecified osteoporosis (733.00) Active confirmed Problem Gynecological examination normal (797930883717792) Routine gynecological examination (V72.31) Active confirmed Major Problem Screening for malignant neoplasm of colon (365450606) Special screening for malignant neoplasms, colon (V76.51) Active confirmed Major Vital Signs Temperature 97.4 degrees Fahrenheit 06/28/2024 Blood pressure diastolic 74 mm Hg 06/28/2024 Height 60.8 in 06/28/2024 Blood pressure systolic 108 mm Hg 06/28/2024 Weight 140 lbs 06/28/2024 BMI 26.62 kg/m2 06/28/2024 Encounters Encounter Location Date Provider Diagnosis [facility] [address] [place] [address] 06/28/2024 Analilia Galvan Encounter for gynecological examination [...] Order Date MAMMOGRAM, SCREENING 06/13/2020 MAMMOGRAM, SCREENING 06/28/2024 MAMMOGRAM, SCREENING 06/16/2022 Ultrasound : Guide Aspir. or Biopsy 03/28 THIN PREP,HPV,MATTI IF HPV+ (>29YR)(SCRN) 03/27/2018 BONE DENSITY 06/23/2023 BONE DENSITY 02/05/2015 BONE DENSITY 06/13/2020 BONE DENSITY 06/16/2022 MM Digital Mammo Screening 06/16/2022 MM Digital Mammo Screening 06/15/2021 MM Digital Mammo Screening 06/07/2019 MM Digital Mammo Screening 06/28/2024 MM Digital Mammo Screening 02/25/2016 MM Digital Mammo Screening 02/05/2015 MM Digital Mammo Screening 06/13/2020 MM Digital Mammo Screening 06/23/2023 Next Appt Details Provider Name:Analilia Caraballo jesus alberto, 07/05/2025 03:00:00 PM, [address], [address], [place], [address], Insurance Providers Payer Name Payer Address Payer Phone Subscriber Number Group Number Insured Name Patient Relationship to Insured Coverage Start Date Coverage End Date MEDICARE [address] [place] [id number] [phone] [id number] DEONHOLLY MOLINAA Self - patient is the insured MEDEX [address] [place] [address] [phone] [id number] HOLLY TRANA Self - patient is [...]
--- OUTSIDE RECORDS SUMMARY | 2025-03-12 17:37 | XMS_ITS | Clinical Summary ---
Author Organization [facility] Address [address] [place], [place] [id number] Phone Care Team Providers Care Sole Molder Name Role Phone Darwin Hopper MD Primary Care Provider [phone] Social History Tobacco Use Types Packs/Day Years Used Date Smoking Tobacco: Never Assessed Comments Unknown Sex and Gender Information Value Date Recorded Sex Assigned at Not on file Legal Sex Female 10:04 PM EDT Gender Identity Not on file Sexual Orientation Not on file Plan of Treatment Not on file Medical Devices Not on file Insurance [employer] MEDEX SUPPLEMENT MEDICARE PART A & B [employer] MEDEX SUPPLEMENT MEDICARE PART A & B [employer] MEDEX SUPPLEMENT MEDICARE PART A & B [employer] MEDEX SUPPLEMENT MEDICARE PART A & B [employer] MEDEX SUPPLEMENT MEDICARE PART A & B [employer] MEDEX SUPPLEMENT MEDICARE PART A & B Care Teams Sole Molder Relationship Specialty Start Date End Date Darwin Hopper MD [address] [place] [address] PCP - General Internal Medicine 10/22/24 Additional Source Comments The information contained in this document represents components of the legal health record. It is not the complete legal health record.[facility]
--- OUTSIDE RECORDS SUMMARY | 2025-03-12 17:37 | XMS_ITS ---
Author Name Yaakov Dunbar Address Unknown Organization [facility] Care Team Providers Care Booster Assembler Name Role Phone Unavailable Primary Care Physician Unavailab le History Of Present Illness No Data Allergies, Adverse Reactions, Alerts Substance RxNorm Reaction(s) Severity Status Start Da te codeine 2670 unspecified active Lamictal 157765 unspecified active Motrin 20240202 unspecified active Penicillins unspecified active amoxicillin GI upset, Other: Thrush unspecified ac tive Medications Medication Generic Name RxNorm Strength Strength Unit Route Dose Dose Form Frequency Date Started Date Ended Status Indication Sig ammonium lactate ammonium lactate 606351 12 % Topica l cream 08/21/19 25 active Appl y a thin laye r to dry skin QD - avoi d face and skin fold s. ciclopirox ciclopir ox 951165 1 % Topica l shamp oo 11/13/19 25 active Appl y and late r into scal p and allo w to sit for 5 wilbert rodney befo re rins ing out. Repe at 2 -4 time s per week for best resu lts. clobetasol clobetas ol 564937 0.05 % Topica l shamp oo 08/24/19 25 active Appl y a thin film to dry scal p once viktor y for 7 days on, 7 days off. Allo w to sit for 15 wilbert rodney, then add wate r, lath er, and rins e thor ough ly. Repe at PRN only to rhina ge itch y rash . desonide desonide 312053 0.05 % Topica l ointm ent 08/24/19 25 active Appl y a very thin laye r to crac ked, dry, fiss ured lips BID 7 days on, 7 days off to rhina ge rash . Only repe at PRN. Do not get insi de of the mout h. fluocinonid e fluocino nide 203165 0.05 % Topica l solut ion 08/21/19 25 active Appl y a thin laye r to itch y scal p BID 2 week s on, 1 week off. Repe at PRN to rhina ge rash . ketoconazol e ketocona zole 325667 2 % Topica l shamp oo 11/03/19 25 active Appl y and lath er into scal p and allo w to sit for 5 wilbert rodney befo re rins ing out. Repe at 2-4 time s per week for best resu lts. Opzelura ruxoliti nib 9055948 1.5 % Topica l cream 10/13/19 25 active Appl y a thin laye r to itch y skin on trun k and extr emit ies BID to rhina ge ecze ma symp toms . triamcinolo ne acetonide triamcin olone acetonid e 2251120 0.1 % Topica l cream BID 08/21/19 25 active Appl y a thin laye r to rash on arms , legs , ches t, abdo men, back BID 2 week s on, 1 week off. Ok to mix with topi abner loti on. Repe at appl icat ion of ster oids to rash only as need ed for reli ef. Chlorasepti c Throat [place] phenol 8067570 1.4 % Mucous membra ne 1 aeros ol, spray as needed 09/01/19 25 active Spra y to affe cted skin insi de the mout h, swis h/le t sit for 15 seco nds and then expe ctor ate. May repe at ever y 2 hrs PRN for reli ef. Mouth Pain benzocai ne 178728 20 % Mucous membra ne liqui d 08/30/19 25 active Spra y to affe cted area s with in the mout h 2-4 time s per day for reli ef. alendronate 883981 70 mg Oral 1 tabl e t weekly active alprazolam 841978 0.5 mg Oral 1 table t daily active duloxetine 760589 120 mg Oral 1 capsu le,de layed relea se (ente celia coate d) daily active hydroxyzine HCl hydroxyz ine HCl 10 mg Oral 1 table t QD active omeprazole 650181 20 mg Oral 1 capsu le,de layed relea se (ente celia coate d) daily active Salagen (pilocarpin e) pilocarp ine HCl 6509969 7.5 mg Oral 1 table t QD 08/30/19 25 active Take one pill by mout h BID simvastatin 818958 5 mg Oral 1 tabl e t daily active Dupixent Pen dupiluma b 3226800 300 mg/2 mL Subcut aneous pen injec tor 01/02/[address] 1 pen subQ bi-w eekl y to rhina ge atop ic derm atit is Acyclovir NULL 07/17/19 15 active Azithromyci n NULL 12/03/19 16 active Capex NULL 03/03/20 07 active Cephalexin NULL 03/17/20 15 active Clindamycin HCl NULL 12/03/19 16 active Dicyclomine HCl NULL 01/21/20 16 active Doxepin HCl NULL 10/26/19 08 active Erythromyci n NULL 01/21/20 16 active Estrace NULL 01/21/20 16 active Fluarix Quadrivalen t NULL 12/03/19 16 active FLUARIX QUADRIVALEN T 2015 SHELBI NULL 01/26 02/13 15 active Lidocaine HCl NULL 07/17/19 15 active Nitrofurant oin Monohyd Macro NULL 01/21/20 16 active Nystatin NULL 12/03/19 16 active oxyCODONE-A cetaminophe n NULL 01/21/20 16 active PredniSONE NULL 07/17/19 15 active Sulfamethox azole-Trime thoprim NULL 12/03/19 16 active Temovate NULL 10/26/19 08 active Problems Problem Code Type Status Date of Diagnosis Date of Resolution Atopic dermatitis (disorder) 12866903(S NOMED) Diagnosis active 03/11/2025 Atopic dermatitis (disorder) 23548320(S NOMED) Diagnosis active 03/06/2025 Atopic dermatitis (disorder) 83894847(S NOMED) Diagnosis active 03/04/2025 Atopic dermatitis (disorder) 27633281(S NOMED) Diagnosis active 02/28/2025 Atopic dermatitis (disorder) 75090908(S NOMED) Diagnosis active 02/26/2025 Atopic dermatitis (disorder) 11801757(S NOMED) Diagnosis active 02/26/2025 Atopic dermatitis (disorder) 30648457(S NOMED) Diagnosis active 02/22/2025 Atopic dermatitis (disorder) 49109731(S NOMED) Diagnosis active 01/30/2025 Peripheral venous insufficiency (disorder) 52045591(S NOMED) Diagnosis active 01/30/2025 Atopic dermatitis (disorder) 66212000(S NOMED) Diagnosis active 01/11/2025 Atopic dermatitis (disorder) 97222887(S NOMED) Diagnosis active 01/01/2025 Asteatosis cutis (disorder) 60574370(S NOMED) Diagnosis active 11/30/2024 Plicated tongue (disorder) 63301553(S NOMED) Diagnosis active 10/31/2024 Asteatosis cutis (disorder) 17359746(S NOMED) Diagnosis active 10/31/2024 Itching of skin (finding) 933792630( SNOMED) Diagnosis active 10/31/2024 Plicated tongue (disorder) 85223548(S NOMED) Diagnosis active 10/02/2024 Asteatosis cutis (disorder) 52797195(S NOMED) Diagnosis active 10/02/2024 Plicated tongue (disorder) 52665359(S NOMED) Diagnosis active 09/18/2024 Asteatosis cutis (disorder) 85061080(S NOMED) Diagnosis active 09/18/2024 Disorder of skin (disorder) 91014434(S NOMED) Diagnosis active 09/18/2024 Asteatosis cutis (disorder) 23815731(S NOMED) Diagnosis active 09/07/2024 Surgical follow-up (finding) 589521050( SNOMED) Diagnosis active 09/07/2024 Repetitive self-excoriation (disorder) 999421717( SNOMED) Diagnosis active 09/07/2024 Other pruritus L29.89(ICD -10) Diagnosis active 09/07/2024 Inflammatory dermatosis (disorder) 344631082( SNOMED) Diagnosis active 08/29/2024 Recurrent aphthous stomatitis (disorder) 066588481( SNOMED) Diagnosis active 08/29/2024 Skin changes due to chronic exposure to non-ionizing radiation (disorder) 620879931( SNOMED) Diagnosis active 08/29/2024 Asteatosis cutis (disorder) 81473034(S NOMED) Diagnosis active 08/29/2024 Inflammatory dermatosis (disorder) 510521199( SNOMED) Diagnosis active 08/21/2024 Mucous membrane dryness (finding) 622414974( SNOMED) Diagnosis active 08/21/2024 Itching of skin (finding) 192785848( SNOMED) Diagnosis active 09/08/2015 Candidiasis (disorder) 44154160(S NOMED) Diagnosis active 05/26/2015 Disorder of skin and/or subcutaneous tissue (disorder) 15870738(S NOMED) Diagnosis active 05/08/2015 Pruritic disorder (disorder) 662563082( SNOMED) Diagnosis active 03/17/2015 Disorder of skin pigmentation (disorder) 23467979(S NOMED) Diagnosis active 02/14/2015 Other specified health status Z78.9(ICD- 10) Diagnosis active 01/09/2015 History of pneumonia (situation) 481174326( SNOMED) Diagnosis active 01/09/2015 Pruritic disorder (disorder) 515567035( SNOMED) Diagnosis active 01/09/2015 Pruritic disorder (disorder) 295597979( SNOMED) Diagnosis active 12/03/2014 Pruritic disorder (disorder) 888767426( SNOMED) Diagnosis active 11/26/2014 Pruritic disorder (disorder) 179325350( SNOMED) Diagnosis active 11/19/2014 Pruritic disorder (disorder) 042003064( SNOMED) Diagnosis active 11/05/2014 Disorder of skin and/or subcutaneous tissue (disorder) 49965682(S NOMED) Diagnosis active 10/23/2014 Pruritic disorder (disorder) 306147278( SNOMED) Diagnosis active 10/14/2014 Pruritic disorder (disorder) 993506818( SNOMED) Diagnosis active 08/08/2014 Disorder of skin and/or subcutaneous tissue (disorder) 51620565(S NOMED) Diagnosis active 05/01/2014 Lichenification and lichen simplex chronicus (disorder) 968480617( SNOMED) Diagnosis active 04/11/2014 Cheilitis (disorder) 3129929(SN OMED) Diagnosis active 02/26/2014 Anxiety disorder (disorder) 576504205( SNOMED) Problem active Depressive disorder (disorder) 86806346(S NOMED) Problem active History of hypertension (situation) 238487047( SNOMED) Problem active Hypercholesterolemia (disorder) 75655306(S NOMED) Problem active Osteoarthritis (disorder) 895338405( SNOMED) Problem active Results No data Encounters Service provided at [facility], [address] [place] [address], [address], [place], [place] [id number]. Office phonenumber is [phone]. Office fax number is [phone]. Encounter Diagnosis Location Date / Time Type Eczema (L20.89) [facility] 03/11/2025 18:00:00 UTC N I Reason For Referral No data Procedures Procedure Date Phototherapy of skin (procedure) 025 12:00 am UTC Phototherapy of skin (procedure) 025 12:00 am UTC Phototherapy of skin (procedure) 025 12:00 am UTC Phototherapy of skin (procedure) 025 12:00 am UTC Phototherapy of skin (procedure) 025 12:00 am UTC Phototherapy of skin (procedure) 025 12:00 am UTC Punch biopsy (procedure) 08/29/2024 12:0 0 am UTC Injection of triamcinolone (procedure) 0 08/29/2024 12:00 am UTC Release of trigger finger (procedure) Tonsillectomy and adenoidectomy (procedu re) Excision of appendix (procedure) History of eyelid surgery (situation) Release of trigger finger (procedure) Excision of appendix (procedure) Tonsillectomy and adenoidectomy (procedu re) History of eyelid surgery (situation) Excision of appendix (procedure) Release of trigger finger (procedure) Tonsillectomy and adenoidectomy (procedu re) History of eyelid surgery (situation) History of eyelid surgery (situation) Release of trigger finger (procedure) Tonsillectomy and adenoidectomy (procedu re) Excision of appendix (procedure) Tonsillectomy and adenoidectomy (procedu re) Release of trigger finger (procedure) Excision of appendix (procedure) History of eyelid surgery (situation) Release of trigger finger (procedure) Tonsillectomy and adenoidectomy (procedu re) Excision of appendix (procedure) History of eyelid surgery (situation) History of eyelid surgery (situation) Release of trigger finger (procedure) Tonsillectomy and adenoidectomy (procedu re) Excision of appendix (procedure) Excision of appendix (procedure) Tonsillectomy and adenoidectomy (procedu re) Release of trigger finger (procedure) History of eyelid surgery (situation) Excision of appendix (procedure) Tonsillectomy and adenoidectomy (procedu re) History of eyelid surgery (situation) Release of trigger finger (procedure) Tonsillectomy and adenoidectomy (procedu re) Release of trigger finger (procedure) Excision of appendix (procedure) History of eyelid surgery (situation) Release of trigger finger (procedure) Tonsillectomy and adenoidectomy (procedu re) Excision of appendix (procedure) History of eyelid surgery (situation) Excision of appendix (procedure) History of eyelid surgery (situation) Release of trigger finger (procedure) Tonsillectomy and adenoidectomy (procedu re) Excision of appendix (procedure) History of eyelid surgery (situation) Release of trigger finger (procedure) Tonsillectomy and adenoidectomy (procedu re) Excision of appendix (procedure) History of eyelid surgery (situation) Release of trigger finger (procedure) Tonsillectomy and adenoidectomy (procedu re) Excision of appendix (procedure) History of eyelid surgery (situation) Release of trigger finger (procedure) Tonsillectomy and adenoidectomy (procedu re) History of eyelid surgery (situation) Release of trigger finger (procedure) Tonsillectomy and adenoidectomy (procedu re) Excision of appendix (procedure) Excision of appendix (procedure) Release of trigger finger (procedure) Tonsillectomy and adenoidectomy (procedu re) History of eyelid surgery (situation) History of eyelid surgery (situation) Release of trigger finger (procedure) Tonsillectomy and adenoidectomy (procedu re) Excision of appendix (procedure) Review Of Systems No Data Assessment 1.EczemaPhototherapy Treatment: Render Post-care in the Note - no; Total Treatment Time - 2:13 min;Changes in Treatment Protocol - Scalp for 30 secs each site; Skin Type - I; Treatment Number - 6; Total Body Energy - 440mj; Location (Body Touches will Override) - full body; Total Body Time - 2:13 min; Protocol - Photochemotherapy: Mineral Oil and NBUVB; Comments on Previous Treatment - 2-3 x weekly increase by 30 mj as tolerated. Plan of Care Code Detail Instructions 3229391 triamcinolone aceton agatha 0.1 % topical cream Apply a thin layer to rash on arms, legs, chest, abdomen, back BID 2 weeks on, 1 week off. Ok to mix with topical lotion. Repeat application of steroids to rash only as needed for relief. 425923 ciclopirox 1 % shampoo Apply and later into scalp and allow to sit for 5 minutes before rinsing out. Repeat 2 -4 times per week for best results. 2770594 Dupixent 300 mg/2 mL subcutaneous pen injector Inject 1 pen subQ bi-weekly to manage atopic dermatitis 987780 ketoconazole 2 % shampoo Lather and apply to scalp as shampoo; leave in 5 min before rinsing; use 2-3 times weekly 731357 ciclopirox 1 % shampoo Apply and later into scalp and allow to sit for 5 minutes before rinsing out. Repeat 2 -4 times per week for best results. 714997 ciclopirox 1 % shampoo Apply and later into scalp and allow to sit for 5 minutes before rinsing out. Repeat 2 -4 times per week for best results. 961718 ketoconazole 2 % shampoo Apply a nd lather into scalp and allow to sit for 5 minutes before rinsing out. Repeat 2-4 times per week for best results. 0760375 Salagen (pilocarpine) 7.5 mg tab let Take one pill by mouth BID 1344568 Opzelura 1.5 % topical cream Jose C ly a thin layer to itchy skin on trunk and extremities BID to manage eczema symptoms. 6016560 Chloraseptic Throat [place] 1.4 % aerosol [place] to affected skin inside the mouth, swish/let sit for 15 seconds and then expectorate. May repeat every 2 hrs PRN for relief. 034981 Mouth Pain 20 % oral mucosal liq uid [place] to affected areas within the mouth 2-4 times per day for relief. 0356421 Salagen (pilocarpine) 7.5 mg tab let Take one pill by mouth BID 324572 desonide 0.05 % topical ointment Apply a very thin layer to cracked, dry, fissured lips BID 7 days on, 7 days off to manage rash. Only repeat PRN. Do not get inside of the mouth. 424658 clobetasol 0.05 % shampoo Apply a thin film to dry scalp once daily for 7 days on, 7 days off. Allow to sit for 15 minutes, then add water, lather, and rinse thoroughly. Repeat PRN only to manage itchy rash. 990383 fluocinonide 0.05 % topical solu tion Apply a thin layer to itchy scalp BID 2 weeks on, 1 week off. Repeat PRN to manage rash. 7720600 triamcinolone aceton agatha 0.1 % topical cream Apply a thin layer to rash on arms, legs, chest, abdomen, back BID 2 weeks on, 1 week off. Ok to mix with topical lotion. Repeat application of steroids to rash only as needed for relief. 105351 ammonium lactate 12 % topical cr eam Apply a thin layer to dry skin QD - avoid face and skin folds. Instructions No Data Social History Code Activity Start Date End Date [id number] (Profilepasser) Never smoker Sex female Sexual orientation Don't Know Gender identity Unspecified Vital Signs No data
--- OUTSIDE RECORDS SUMMARY | 2025-03-12 17:37 | XMS_ITS | Patient Health Record ---
Author Organization [facility] Address [address] [place] [address] Care Team Providers Care Hotshot Superintendent Name Role Phone Darwin Hopper Primary Care Provider Jacki Christianson Unavailable [phone] Jose Baker Unavailable [phone] Allergies Allergen (clinical drug ingredient) Drug/Non Drug Allergy documented on EMR Reaction Allergy Type Onset Date Status codeine Codeine upset stomach Drug Allergy Act alexander Substance with sulfonamide structure and antibacterial mechanism of action (substance) Sulfa Antibiotics rash Drug Allergy Active Reason For Referral No Information Medications Medication SIG (Take, Route, Frequency, Duration) Notes Start Date End Date Status Opzelura 1.5 % 1 application Externally Twice a day Active Omeprazole 20 MG 1 capsule 30 minutes before morning meal Orally Once a day; Duration: 30 day(s) Active Xanax prn Active Ammonium Lactate 12 % 1 application Externally to feet except for between the toes Twice a day; Duration: 30 days Active Calcium Magnesium Ac tive Fluticasone Propionate Not-Taking Dupixent 300 MG/2ML 2 mL Subcutaneous Active Multivitamin Active traZODone HCl 100 MG 1 tablet at bedtime Orally Once a day; Duration: 30 day(s) Not-Taking Probiotic Active Asenapine Maleate 2.5 MG 2 tablets under the tongue and allow to dissolve Sublingual Twice a day; Duration: 30 day(s) Not-Taking Vitamin B6 Active Lexapro 10 MG 1 tablet Orally Once a day; Duration: 30 day(s) Not-Taking SEROquel 25 MG 1 tablet at bedtime Orally Once a day Not-Taking Simvastatin 5 MG 1 tablet in the even ing Orally Once a day Active Cequa 0.09 % 1 drop into affected eye Ophthalmic every 12 hrs Active ALPRAZolam 0.5 MG 1 tablet Orally Twic e a day Not-Taking [place] 3 Active Metoprolol Succinate Not-Taking Cymbalta Active Triamcinolone Acetonide 0.1 % External; Duration: 30 Days Active Vitamin D Active Ciclopirox 1 % PLEASE SEE ATTACHED FOR DETAILED DIRECTIONS External; Duration: 30 Days Active Terbinafine HCl 250 MG 1 tablet Orally O nce a day for seven days, hold for 3 weeks then repeat; Duration: 90 days 03/12/2025 Active Immunizations Vaccine Route Administration Date Status Comme nts Influenza Unknown 04/10/2024 Administered Social History Tobacco Use: Social History Observation Description Date Details (start date - stop date) Never Smoker NA - NA Alcohol Screen Question Answer Notes Did you [...] Status Risk Notes Problem Acquired hallux valgus (97647843) Hallux valgus (acquired), right foot (M20.11) Active confirmed Problem Bilateral atherosclerosis of arteries of lower limbs (disorder) (43592249661940685 ) Atherosclerosis of minto artery of both lower extremities, with unspecified presence of clinical manifestation (I70.203) Active confirmed Q7(A), Q8(2B), Q9(1B,2 C) Vital Signs Blood pressure diastolic 65 mm Hg 03/08/2025 Height 4ft 11in in 03/08/2025 Blood pressure systolic 126 mm Hg 03/08/2025 Weight 132 lbs 03/08/2025 BMI 26.66 kg/m2 03/08/2025 Procedures Procedure Date Ordered Date Performed Result Body Sit e 13036-TMKOSKW NAIL, 6 OR MORE 06/04/2024 N/A 99288-VHXT SKIN LESIONS, 2 TO 4 06/04/2024 N/A 33672-XAMNTWA NAIL, 6 OR MORE 08/30/2024 N/A 29101 I&D ABSCESS- SIMPLE,SINGLE 08/30/2024 N/A 74642-RRBH SKIN LESIONS, 2 TO 4 08/30/2024 N/A 71661-ZCDNBHQ NAIL, 6 OR MORE 11/29/2024 N/A 68820-FPHD SKIN LESIONS, 2 TO 4 11/29/2024 N/A 70080-GZFKYCC NAIL, 6 OR MORE 02/28/2025 N/A 52606-PGVR SKIN LESIONS, 2 TO 4 02/28/2025 N/A Encounters Encounter Location Date Provider Diagnosis [address] [address] 06/04/2024 Jose Samuel Atherosclerosis of minto artery of both lower extremities, with unspecified presence of clinical manifestation I70.203 ; Tinea unguium B35.1 ; Pain in right toe(s) M79.674 ; Pain in left toe(s) M79.675 and Xerosis of skin L85.[address] [address] 08/30/2024 Jose Samuel Atherosclerosis of minto artery of both lower extremities, with unspecified presence of clinical manifestation I70.203 ; Tinea unguium B35.1 ; Pain in right toe(s) M79.674 ; Pain in left toe(s) M79.675 and Abscess of toe, right L02.[address] [address] 11/29/2024 Jose Samuel Atherosclerosis of minto artery of both lower extremities, with unspecified presence of clinical manifestation I70.203 ; Tinea unguium B35.1 ; Pain in right toe(s) M79.674 and Pain in left toe(s) M79.[address] [address] 02/28/2025 Jose Samuel Atherosclerosis of minto artery of both lower extremities, with unspecified presence of clinical manifestation I70.203 ; Tinea unguium B35.1 ; Pain in right toe(s) M79.674 and Pain in left toe(s) M79.675 [facility] [address] [address] 03/08/2025 Jacki Leon Pain in right toe(s) M79.674 ; Onychomycosis B35.1 and Pain in left toe(s) M79.675 [facility] [address] [place] [address] 08/27/20[facility] [address] [place] [address] [facility]07[facility] [facility] [address] 03/08/2025 Jacki Leon Assessments Encounter Date Diagnosis (ICD Code) Assessment Notes Treatment Notes Treatment Clinical Notes Section Notes 06/04/2024 Tinea unguium (ICD-10 - B35.1) 06/04/2024 Atherosclerosis of minto artery of both lower extremities, with unspecified presence of clinical manifestation (ICD-10 - I70.203) 11/29/2024 Tinea unguium (ICD-10 - B35.1) 11/29/2024 Atherosclerosis of minto artery of both lower extremities, with unspecified presence of clinical manifestation (ICD-10 - I70.203) Q7(A), Q8(2B), Q9(1B,2C) 02/28/2025 Tinea unguium (ICD-10 - B35.1) 03/08/2025 Pain in right toe(s) (ICD-10 - M79.674) 03/08/2025 Onychomycosis (ICD-10 - B35.1) 08/30/2024 Tinea unguium (ICD-10 - B35.1) 02/28/2025 Atherosclerosis of minto artery of both lower extremities, with unspecified presence of clinical manifestation (ICD-10 - I70.203) Q7(A), Q8(2B), Q9(1B,2C) 08/30/2024 Atherosclerosis of minto artery of both lower extremities, with unspecified presence of clinical manifestation (ICD-10 - I70.203) Q7(A), Q8(2B), Q9(1B,2C) 02/28/2025 Pain in right toe(s) (ICD-10 - M79.674) 03/08/2025 Pain in left toe(s) (ICD-10 - M79.675) 08/30/2024 Pain in right toe(s) (ICD-10 - M79.674) 11/29/2024 Pain in right toe(s) (ICD-10 - M79.674) 06/04/2024 Pain in right toe(s) (ICD-10 - M79.674) 06/04/2024 Pain in left toe(s) (ICD-10 - M79.675) 11/29/2024 Pain in left toe(s) (ICD-10 - M79.675) 02/28/2025 Pain in left toe(s) (ICD-10 - M79.675) 08/30/2024 Pain in left toe(s) (ICD-10 - M79.675) 08/30/2024 Abscess of toe, right (ICD-10 - L02.611) Patient Educated with: WOUND CARE INSTRUCTIONS. pdf (WOUND CARE INSTRUCTIONS. pdf) 06/04/2024 Xerosis of skin (ICD-10 - L85.3) 08/30/2024 Other 11/29/2024 Other 02/28/2025 Other Plan Of Treatment Pending Test Test Name Order Date *Liver Function Test (LFT) 03/08/2025 28242-ALQOBHZ NAIL, 6 OR MORE 11/29/2024 65690-JTDICPE NAIL, 6 OR MORE 02/28/2025 33936-FHEOEVA NAIL, 6 OR MORE 12/07/2023 96004-FRGWKWQ NAIL, 6 OR MORE 03/08/2024 52896-QTTMHCN NAIL, 6 OR MORE 06/04/2024 33365-PDNNVPN NAIL, 6 OR MORE 08/30/2024 03535-Jxmghuhz Plate 03/08/2024 18144 I&D ABSCESS- SIMPLE,SINGLE 025 26600-SSGI SKIN LESIONS, 2 TO 4 02/29/20 25 57542-JVRK SKIN LESIONS, 2 TO 4 11/30/19 25 08574-RYSQ SKIN LESIONS, 2 TO 4 03/08/20 24 46130-WATC SKIN LESIONS, 2 TO 4 12/07/19 24 32333-LXSG SKIN LESIONS, 2 TO 4 08/31/19 25 30561-JKOD SKIN LESIONS, 2 TO 4 06/04/20 24 Next Appt Details Provider Name:Jacki koenig, 05/13/2025 02:00:00 PM, [address] [place], [address], Insurance Providers Payer Name Payer Address Payer Phone Subscriber Number Group Number Insured Name Patient Relationship to Insured Coverage Start Date Coverage End Date Medicare [facility] [address] [place] [address] [id number] Madison Navarro Self - patient is the insured [employer] [address] [place] [address] [id number] Madison Navarro Self - patient is the [...]
== END 2025-03-12 14:48 | disposition home or self-care (01) ==
LOC: HO.HVS 13:45
PROVIDERS: PCP Internal Medicine; Visit Provider Surgery Vascular Surgery
DX: I83.91 Asymptomatic varicose veins of right lower extremity (principal); I73.9 Peripheral vascular disease, unspecified
CPT/HCPCS: 99214

== ENCOUNTER → 2025-03-12 13:44 | Outpatient (BNVA) | payer MEDICARE, SELFPAY | PROVIDERS: PCP Internal Medicine; Visit Provider Surgery Vascular Surgery | DX: I83.91 Asymptomatic varicose veins of right lower extremity (principal); I73.9 Peripheral vascular disease, unspecified | CPT/HCPCS: 99212 ==

== ENCOUNTER 2025-03-29 14:02 | Outpatient (REF) | payer MEDICARE, SELFPAY ==
--- OUTSIDE RECORDS SUMMARY | 2024-07-05 11:55 | XMS_ITS ---
Author Organization [facility] Address [address] [place] [address] Care Team Providers Care Ocean Export Coordinator Name Role Phone Darwin Hopper MD Primary Care Provider Zoltan Grant Jr REASON FOR VISIT IBS,gerd Encounters Encounter Location Date Provider Diagnosis [facility] [address] [facility] [address] [place] [address] 07/05/2024 Zoltan Vazquez Jr Plan Of Treatment Next Appt Details Provider Name:Zoltan turner Jr, 05/16/2025 02:15:00 PM, [address] [facility], [address], [place], [address], Progress Notes * KIKE TRANDOB:1950 (74 yo F)Acc No.[id number]:07/05/2024 Progress Notes Patient: KIKE MORALES Provider: Adeline Vazquez MD :1950 A ge:74 Y S ex:Female Date:07/05/2024 Address:[address] [place] [address] [id number] Pcp:Darwin Hopper MD Subjective: * Chief Complaints: [...] 0 07/05/2024 Generated for Miranda mariee/Tony/Rodrigo on: 03:01 PM EDT
--- OUTSIDE RECORDS SUMMARY | 2024-07-12 10:15 | XMS_ITS ---
Author Organization [facility] Address [address] [place] [address] Care Team Providers Care Patient Service Representative Name Role Phone Darwin Hopper MD Primary Care Provider Zoltan Grant Jr [phone] REASON FOR VISIT IBS,gerd Encounters Encounter Location Date Provider Diagnosis [facility] [address] [facility] [address] [place] [address] 07/12/2024 Zoltan Vazquez Jr Plan Of Treatment Next Appt Details Provider Name:Zoltan turner Jr, 05/16/2025 02:15:00 PM, [address] [facility], [address], [place], [address], Progress Notes * KIKE TRANDOB:1950 (74 yo F)Acc No.[id number]:07/12/2024 Progress Notes Patient: KIKE MORALES Provider: Adeline Vazquez MD :1950 A ge:74 Y S ex:Female Date:07/12/2024 Address:[address] [place] [address] [id number] Pcp:Darwin Hopper MD Subjective: * Chief Complaints: [...] 07/12/2024 Generated for Miranda mariee/Tony/Rodrigo on: 1 03:01 PM EDT
--- OUTSIDE RECORDS SUMMARY | 2025-03-29 15:01 | XMS_ITS | Patient Health Record ---
Author Organization [facility] Address [address] [place] [address] Care Team Providers Care Geek Squad Manager Name Role Phone Po Darwin GONZALES Primary Care Provider Zoltan Grant Jr [phone] Allergies Allergen (clinical drug ingredient) Drug/Non Drug [...] Multi Vitamin/Minerals - 1 Orally QD Active [place] 3 1000 MG 1 AND half capsule [...] Problem Status W/U Status Risk Notes Problem 047908447 Left lower quadr ant pain (R10.32) Active confirmed Problem 57944217 Functional diarr hea (K59.1) Active confirmed Problem 495405765 Dorsalgia, unspecified (M54.9) Active confirmed Problem 048661619 Elevated LFTs (R79.89) Active confirmed Problem 389438498 Gastroesophageal reflux disease without esophagitis (K21.9) Active confirmed Problem 09963263 Dysphagia, unspecified type (R13.10) Active confirmed Problem 909739225 Abdominal pain, LLQ (R10.32) Active confirmed Problem 903946004 Irritable bowel syndrome with constipation (K58.1) Active confirmed Problem 275167324 FH: colon polyps (Z83.71) Active confirmed Problem 517685545 LLQ pain (R10.32) Active confirmed Vital Signs Temperature 98.6 degrees Fahrenheit 10/22/2024 Blood pressure diastolic 01 mm Hg 10/22/2024 Height 61 in 10/22/2024 Blood pressure systolic 001 mm Hg 10/22/2024 Weight 131.6 lbs 10/22/2024 BMI 24.86 kg/m2 10/22/2024 Encounters Encounter Location Date Provider Diagnosis [facility] [address] [place] [address] 10/22/2024 Zoltan Vazquez Jr Gastroesophageal reflux disease without esophagitis K21.9 and Irritable bowel syndrome with constipation K58.1 [facility] [address] [place] [address] 07/11/2024 Zoltan Vazquez Jr Assessments Encounter Date [...] Name:Zoltan Melonie turner , 05/16/2025 02:15:00 PM, [address] [place] [address], [address], [place], [address], Insurance Providers Payer Name Payer Address Payer Phone Subscriber Number Group Number Insured Name Patient Relationship to Insured Coverage Start Date Coverage End Date MEDICARE OF [place] [address] [place] [address] [id number] CHELSEA KIKE Self - patient is the insured [employer] ATT[employer] CLAIMS [address] [place] [address] [id number] HOLLY TRANA Self - patient is the [...]
[2025-04-01 23:04] LABS: Proteinase 3 PR3 Antibodies <1.0 AI
== END 2025-03-29 14:03 | disposition home or self-care (01) ==
LOC: HO.HKASLDS 14:02
PROVIDERS: PCP Internal Medicine; Visit Provider Student in an Organized Health Care Education/Training Program
DX: M35.00 Sjogren syndrome, unspecified (principal); M79.89 Other specified soft tissue disorders; R60.0 Localized edema; E78.5 Hyperlipidemia, unspecified; I73.9 Peripheral vascular disease, unspecified; F41.1 Generalized anxiety disorder; K21.9 Gastro-esophageal reflux disease without esophagitis
CPT/HCPCS: 36415; 86021; 99202; 99212

== ENCOUNTER 2025-03-29 14:02 | Outpatient (AMB) | payer MEDICARE, SELFPAY ==
--- OUTSIDE RECORDS SUMMARY | 2024-11-22 11:00 | XMS_ITS ---
Author Organization [facility] Address [address] [place] [address] Care Team Providers Care Sas Etl Developer Name Role Phone Darwin Hopper Primary Care Provider Unavailabl Jacki Sadler Unavailable [phone] Jose Baker [phone] Encounters Encounter [facility] Date [facility] [address] 11/22/2024 Jose Baker Plan Of Treatment Next Appt Details Provider Name:Jacki koenig, 05/13/2025 02:00:00 PM, [address] [place], [address], Progress Notes * DEONNicole MOLINADwainB:1950 ( 74 yo F)Acc No.[id number]:11/22/2024 Progress Note Patient: Madison MORALES Provider: Bobby Baker DPM :1950 A ge:74 Y S ex:Female Date:11/22/2024 Address:[address] [facility] [id number] Pcp:Darwin Hopper Subjective: * Chief Complaints: * [...] 11/22/2024 Generated for Miranda mariee/Josh on: 1 02:15 PM EDT
--- NOTE | 2025-03-29 14:05 | A.OFFVIS_ITS ---
Vital Signs 03/29/25 14:13 Height 5 ft 1 in Weight 135 lb 2.294 oz BMI 25.5 BP 115/80 Blood Pressure Location Lt brachial Position Sitting Pulse 94 Pulse Source Pulse Oximeter Pulse Oximetry (%) 98 Oxygen Delivery Method Room Air Intake Visit Reasons: Sjogren syndrome Intake Note: New patient presents for Sjogren Syndrome. Allergies lamotrigine (From LAMICTAL) Allergy (Intermediate, Verified 03/29/25 16:36) RASH Sulfa (Sulfonamide Antibiotics) (SULFA (SULFONAMIDE ANTIBIOTICS)) Allergy (Intermediate, Verified 03/29/25 16:36) UNKNOWN, upset stomach codeine (CODEINE) Allergy (Mild, Verified 03/29/25 16:36) NAUSEA & VOMITING, nausea and vomiting penicillin V (PENICILLIN V) Allergy (Mild, Verified 03/29/25 16:36) NAUSEA & VOMITING, sick to stomach, nausea and vomiting ciprofloxacin (Cipro) Allergy (Unknown, Verified 03/29/25 16:36) sick to stomach ibuprofen (From Motrin) Adverse Reaction (Verified 03/29/25 16:36) sick to stomach, nausea and vomiting Medication List - Last Reconciled 03/29/25 by Hillary Davis MD alendronate 70 mg PO QWEEK alprazolam 0.5 mg PO BID PRN calcium carb and citrat-mag ox 200 mg calcium- 50 mg tabs PO cholecalciferol (vitamin D3) 25 mcg PO DAILY ciclopirox 1% topical clotrimazole 1% 1 appl topical BID compress.stocking,knee,reg,med As directed 20-30 mm HG cyclosporine 0.09% (Cequa) 1 drp ophthalmic (eye) Q12H duloxetine 120 mg PO DAILY furosemide (Lasix) 20 mg PO DAILY miconazole nitrate 2% (Zeasorb AF) 1 appl topical BID multivitamin 1 tab PO DAILY nystatin 6 mL PO QID omega-3 fatty acids 1,000 mg PO DAILY omeprazole 20 mg PO DAILY pyridoxine (vitamin B6) 100 mg PO DAILY 90 days simvastatin 5 mg PO BEDTIME tobramycin-dexamethasone 0.3-0.1 % (TobraDex) ophthalmic (eye) vitamin K2 45 mcg PO DAILY HPI Comments Details: Patient is a 74-year-old female with hyperlipidemia complicated by peripheral vascular disease, generalized anxiety disorder, GERD, polyarticular osteoarthritis and ?Sjogren's syndrome here today for follow up Interval History: Patient last seen 12/18/[address] Del Castillo - Not on DMARDs - Serologies negative - patient did not want to start DMARD, recommended topical treatments including biotene Today - Not on DMARDs - Problems since June of this year. * Rash. Seeing derm. Did a punch biopsy. no evidence of interface dermatitis or evidence of Sjogren's * Initially treated with topicals, not working. Started dupixent for eczema * Leg swelling. Had venous US which did not not show any DVT. Evidence of mild venous insufficiency, but not enough to cause the swelling. Arterial doppler order * Bilateral leg pain * Burning mouth syndrome - treat with nystatin rinse Rheumatologic History: Initially saw Dr. Flores for dry mouth. Serology negative for YASMINE, RF, SSA, SSB, normal ESR and CRP. Normal SPEP and immunofixation. Had lip biopsy but the sample was too small for pathologist who read and patient did not want to do the test again No objective evidence of Sjogren's Could not tolerate pilocarpine or cevimeline Did not start hydroxychloroquine due to fear of side effects Current Rheumatology Medication(s): [facility] Medical History (Updated 03/29/25 @ 17:09 by Gurjit Manuel MD) Post-nasal drip Bronchitis Numbness in feet Impacted cerumen of left ear Hoarseness Stye Hoarseness Hip pain, right Lower back pain Colon cancer screening Acute sinusitis Trigger finger of right hand Bile salt-induced diarrhea Osteoarthritis Irritable bowel syndrome GERD (gastroesophageal reflux disease) Essential tremor Hypercholesterolemia Calculus of left kidney Constipation Cholecystectomy planned Right knee meniscal tear Hepatitis Osteoporosis Umbilical hernia History of duodenal ulcer Liver hemangioma Surgical History Hx of tonsillectomy History of cholecystectomy Cataract History of knee surgery History of eyelid surgery H/O adenoidectomy History of appendectomy Family History Father Hypertension Prostate cancer Mother Hypertension Diabetes Dementia Maternal Aunt Gastric cancer Paternal Aunt Gastric cancer Ovarian cancer Paternal Uncle Myocardial infarction Social History Household Members: Spouse Housing: House Do you presently have visiting nurse or other home services: No Alcohol intake: never Patient Tobacco Use Status: Never used Tobacco e-Cigarette/Vaping Use: Never Used Second Hand Smoke Exposure: No service: No Current occupational status: retired Cognitive needs: No Hearing needs: No Vision needs: Yes Review of Systems Const Details: Review of Systems Constitutional: Denies fever, chills, weight loss ENT: Denies vision changes GI: Denies nausea, vomiting, diarrhea, abdominal pain, change in BM Pulm: Denies SOB, PATEL, hemoptysis, wheezing Cards: Denies chest pain, palpitations Skin: Denies photosensitivity, TRAFFIC ASSISTANT: Denies headaches, weakness, paresthesias, recurrent falls MSK: as per HPI All other systems reviewed and are unremarkable except noted above Physical Exam Exam Exam: Vital signs reviewed Physical Examination CONSTITUITIONAL Patient alert and cooperative. Well appearing and in no apparent painful distress MSK Hands * Right Hand: Able to make a fist. No swelling or tenderness to palpation of the MCPs, PIPs or DIPs. * Left Hand: Able to make a fist. No swelling or tenderness to palpation of the MCPs, PIPs or DIPs. * Herbedens nodes noted bilaterally Wrists * Right Wrist: Full ROM to flexion and extension. No swelling or TTP * Left Wrist: Full ROM to flexion and extension. No swelling or TTP Elbows * Right Elbow: Full ROM. No swelling or TTP. No TTP of the medial epicondyle. No TTP of the lateral epicondyle * Left Elbow: Full ROM. No swelling or TTP. No TTP of the medial epicondyle. No TTP of the lateral epicondyle Shoulders * Right shoulder: Full ROM. No swelling noted. No TTP of the AC joint. No TTP of the subacromial bursa. No TTP of the posterior shoulder * Left shoulder: Full ROM. No swelling noted. No TTP of the AC joint. No TTP of the subacromial bursa. No TTP of the posterior shoulder Hip bursa: No tenderness to palpation bilaterally Knees * Right knee: Full ROM. No swelling noted. No TTP of the knee joint line. No TTP of pes anserine bursa * Left knee: Full ROM. No swelling noted. No TTP of the knee joint line. No TTP of pes anserine bursa. * Crepitations felt bilaterally Lower extremity * Pitting edema up to the ankle Ankles * Right ankle: Good ankle dorsiflexion and plantar flexion. Swelling. No TTP of the ankle joint * Left ankle: Good ankle dorsiflexion and plantar flexion. Swelling. No TTP of the ankle joint Feet * Right foot: Negative squeeze test * Left foot: Negative squeeze test Tender points? * No tenderness to palpation of the bilateral trapezius, supraspinatus, anterior costochondral junctions, bilateral suboccipital muscle insertions SKIN Rash seen to upper and lower extremities Vital Signs: Last Vital Signs Pulse 94 03/29/25 14:13 BP 115/80 03/29/25 14:13 Pulse Ox 98 03/29/25 14:13 Oxygen Delivery Method Room Air 03/29/25 14:13 BMI result Body Mass Index 25.5 Results Reviewed Results Reviewed: Laboratory Tests 08/30/24 12/04/24 13:18 14:01 WBC 5.1 RBC 4.02 L Hgb 13.1 Hct 39.4 Plt Count 223 ESR 11 Sodium 143 Potassium 3.5 Chloride 107 Carbon Dioxide 30 H BUN 16 Creatinine 0.72 AST 30 ALT 31 Laboratory Tests 09/11/24 14:17 Rheumatoid Factor < 13.0 YASMINE Screen POSITIVE A YASMINE Titer 1:40 H SS-A/Ro Antibody <1.0 NEG SS-B/La Antibody <1.0 NEG Sm (Reeves) Antibody <1.0 NEG SM/SEARCH ENGINEER IgG Antibody <1.0 NEG Double Strand DNA Ab 1 Complement C3 176 Complement C4 26 Assessment & Plan Assessment & Plan (1) Sjogren's syndrome: Code(s): M35.00 - Sjogren syndrome, unspecified Category: Medical Qualifiers: Sjogren's organ involvement: unspecified organ involvement Qualified Code(s): M35.00 - Sicca syndrome, unspecified Plan: #?Sjogren's syndrome Patient is a 74 y.o. female here today for follow up Clinically she has significant sicca symptoms but no SSA/SSB and negative YASMINE Last biopsy was non specific At this time it is unclear if this patient has a diagnosis of Sjogren's. Given that her antibodies are negative she would need a a salivary gland biopsy to confirm the diagnosis. Patient does not want to pursue further salivary gland biopsies due to her discomfort with the last biopsy. Her current symptomatology also does not confirm Sjogren's. Her skin biopsy was negative for Sjogren's and her lower leg swelling is unlikely to be related to Sjogren's. ANCA vasculitis antibodies checked and they are negative. Given her significant sicca symptoms it is reasonable to do a trial of Plaquenil however patient is declining Unfortunately at this time I have no further recommendations for her. If in the future she decides to do a trial of immunosuppression to see if this helps any of her symptoms she can return to Rheumatology Plan - Recommend trial of Plaquenil, patient declines - Confirmation of disease with salivary lip gland biopsy, patient declines - No further recommendations from Rheumatology - Patient can return to clinic if willing to pursue immunosuppression Plan This is my first visit with the patient. I spent 45 minutes reviewing the record and labs, taking a history, examining the patient, discussing the treatment plan, answering questions ordering diagnostic work up and documenting in the medical record Orders: Orders ANCA Vasculitides 03/29/25 M35.00 - Sjogren syndrome, unspecified Coding Level of Care Code New Pt Level 5 (53776) Complex EM visit Add On G2211 Diagnoses Sjogren's syndrome, with unspecified organ involvement M35.00 Sjogren's organ involvement: unspecified organ involvement
[2025-03-29 14:13] VITALS: BP 115/80; PULSE 94; O2SAT 98; BMI 25.5
--- OUTSIDE RECORDS SUMMARY | 2025-03-29 14:15 | XMS_ITS | Clinical Summary ---
Author Organization [facility] Address [address] [place] [address] Phone Care Team Providers Care Cycle Manager Name Role Phone Darwin Hopper MD Primary Care Provider [phone] Surgical History Surgery Date Site/Laterality Comments ADENOIDECTOMY [...] Health Maintenance Due Date Last Done Comments Colorectal Cancer Screening: Colonoscopy 1950 Cholesterol Screening (Lipid Panel) 06/04/2022 Falls Risk Assessment 06/04/2022 Hepatitis C [...] Mammo Location: [facility], [address] [place] [address], [address], . -------- FINAL REPORT -------- Dictated By: Geneva Coronel Dictated Date: 09/13/2024 15:07 ET Assigned Physician: Geneva Coronel Reviewed and Electronically Signed By: Geneva Coronel Signed Date: 09/13/2024 15:09 ET Workstation ID: [id number] Transcribed By: Self Edit Transcribed Date: 09/13/2024 [...] Mammo Location: [facility], [address] [place] [address], [address], . -------- FINAL REPORT -------- Dictated By: Geneva Coronel Dictated Date: 09/13/2024 15:07 ET Assigned Physician: Geneva Coronel Reviewed and Electronically Signed By: Geneva Coronel Signed Date: 09/13/2024 15:09 ET Workstation ID: [id number] Transcribed By: Self Edit Transcribed Date: 09/13/2024 15:07 ET us Self Referral Sppl IMG BI PROCEDURES Final Resul t * JAIME DEXA AXIAL SKELETON (07/18/2023 3:48 PM EST) Anatomical Region Laterality Modality Mammography 07/18/2023 2:51 PM EST Narrative 07/18/2023 3:[address] [facility] Diagnostic Imaging Department [address] [place] [address] Patient: KIKE NAVARRO Bee /Age/Sex: 1950 - 73 - F Unit#: [id number] Location/Status: SPDIMA/REG CLI [facility]em[facility] [place] Ordering Physician: ANALILIA OWENS MD [facility] Dexa Axial Skeleton - 07/18/23 - 0198 Report Status:Signed History: Low estrogen state due to menopause. Personal history of fracture. Height loss. Comparison: 06/02/21 Findings: Bone densitometry is performed utilizing dual energy x-ray absorptiometry (DXA) in the [employer] unit. The lumbar spine and proximal femora [...] 25.9 percent Hip 8.1 percent. IMPRESSION: Osteoporosis. 18384 Dictating Physician: BAILEY NIETO MD Electronically Signed by: BAILEY NIETO MD Dic Date/Time: 07/18/23 1547 Sign date/Time: 07/18/23 1548 Procedure Note Bailey Nieto MD - 02/13/2024 [facility] Diagnostic Imaging Department [address] [place] [address] Patient: DEONJESSEKIKE./Age/Sex: 1950 - 73 - F Unit#: [id number] Location/Status: [facility]/REG CLI Mnemonic[facility] [place] Ordering Physician: ANALILIA OWENS MD Jaime Dexa Axial Skeleton - 07/18/23 - 5710 Report Status:Signed History: Low estrogen state due to menopause. Personal history offracture. Height loss. Comparison: 06/02/21 Findings: Bone densitometry is performed utilizing dual energy x-ray absorptiometry(DXA) in the [employer] unit. The lumbar spine and proximal femora [...] 25.9 percent Hip 8.1 percent. IMPRESSION: Osteoporosis. 42024 Dictating Physician: BAILEY NIETO MD Electronically Signed by: BAILEY NIETO MD Dic Date/Time: 07/18/23 1547 Sign date/Time: 07/18/23 1548 Analilia Owens MD IMG BI PROCEDURES Final Re sult from Last 3 Months or Most Recently Relevant to Health Maintenance Insurance MEDICARE Care Teams Cycle Manager Relationship Specialty Start Date End Date Darwin Hopper MD [address] [place] [address] [place] [address] [place] [address] PCP - General Internal Medicine 08/13/19
--- OUTSIDE RECORDS SUMMARY | 2025-03-29 14:16 | XMS_ITS | Patient Health Record ---
Author Organization [facility] Address [address] [place] [address] Care Team Providers Care Rn Placement Name Role Phone CARROLL SHANNON M.D. Primary Care Provider Analilia Manning Unavailable [phone] Allergies Allergen (clinical drug ingredient) Drug/Non Drug Allergy documented on EMR Reaction Allergy Type Onset Date Status lamotrigine Lamictal Skin Rash Drug Allergy Activ e Motrin Nausea/Vomiting/ Diarrhea Drug Allergy Active estrogens, conjugated (CORRECTION) Premarin Skin Rash Drug Allergy Active estradiol [...] even ing Orally Once a day Active Nanjemoy 3 1000 MG 1 capsule Orally Onc [...] Status Risk Notes Problem Gynecological examination abnormal (057514007748447) Encounter for gynecological examination (general) (routine) with abnormal findings (Z01.411) Active confirmed Problem Postmenopausal atrophic vaginitis (69691492) Postmenopausal atrophic vaginitis (N95.2) Active confirmed Problem Age-related osteoporosis (411406561) Age-related osteoporosis without current pathological fracture (M81.0) Active confirmed Problem Urinary incontinence (009246817) Unspecified urinary incontinence (R32) Active confirmed Problem Constipation (39270512) Constipation, unspecified (K59.00) Active confirmed Problem Anxiety state (659605336) Anxiety state, unspecified (300.00) Active confirmed Major Problem Depressive disorder (22954747) Depressive disorder, not elsewhere classified (311) Active confirmed Major Problem Dyspareunia (63535095) Dyspareunia (625.0) Active confirmed Diag Problem Female stress incontinence (64934497) Female stress incontinence (625.6) Active confirmed Major Problem Menopausal symptom (91758775) Symptomatic menopausal or female climacteric states (627.2) Active confirmed Major Problem Postmenopausal atrophic vaginitis (11102291) Postmenopausal atrophic vaginitis (627.3) Active confirmed Diag Problem Osteoporosis (04517220) Unspecified osteoporosis (733.00) Active confirmed Problem Gynecological examination normal (982379618141600) Routine gynecological examination (V72.31) Active confirmed Major Problem Screening for malignant neoplasm of colon (419282752) Special screening for malignant neoplasms, colon (V76.51) Active confirmed Major Vital Signs Temperature 97.4 degrees Fahrenheit 06/28/2024 Blood pressure diastolic 74 mm Hg 06/28/2024 Height 60.8 in 06/28/2024 Blood pressure systolic 108 mm Hg 06/28/2024 Weight 140 lbs 06/28/2024 BMI 26.62 kg/m2 06/28/2024 Encounters Encounter Location Date Provider Diagnosis [facility] [address] [place] [address] 06/28/2024 Analilia Galvan Encounter for gynecological examination [...] Name:Analilia Caraballo chelitavalerierachael, 07/05/2025 03:00:00 PM, [address], [place], [address], Insurance Providers Payer Name Payer Address Payer Phone Subscriber Number Group Number Insured Name Patient Relationship to Insured Coverage Start Date Coverage End Date MEDICARE [address] [place] [id number] [phone] [id number] DEONHOLLY MOLINAA Self - patient is the insured MEDEX [address] [place] [address] [id number] HOLLY TRANA Self - patient is [...]
--- OUTSIDE RECORDS SUMMARY | 2025-03-29 14:16 | XMS_ITS | Clinical Summary ---
Author Organization [facility] Address [address] [place] [address] Care Team Providers Care Timber Rider Name Role Phone Darwin Hopper MD Primary Care Provider [phone] Allergies Active Allergy Reactions Criticality Noted Date [...] by mouth. 0 07/30/2015 Active nystatin (MYCOSTATIN) 101194 units tablet Take by mouth. 0 07/30/2015 [...] age to complete this topic Care Teams Timber Rider Relationship Specialty Start Date End Date Po, Darwin Wasserman MD [address] [place] [address] [address] [facility] [place], [place] [id number] PCP - General Internal Medicine 08/13/19
--- OUTSIDE RECORDS SUMMARY | 2025-03-29 14:16 | XMS_ITS | Clinical Summary ---
Author Organization [facility] Address [address] [place], [place] [id number] Phone Care Team Providers Care Data Deliverables Manager Name Role Phone Darwin Hopper MD Primary Care Provider [phone] Social History Tobacco Use Types Packs/Day Years Used Date Smoking Tobacco: Never Assessed Comments Unknown Sex and Gender Information Value Date Recorded Sex Assigned at Not on file Legal Sex Female 10:04 PM EDT Gender Identity Not on file Sexual Orientation Not on file Plan of Treatment Not on file Medical Devices Not on file [employer] MEDEX SUPPLEMENT MEDICARE PART A & B [employer] [facility] [employer] CROSS MEDEX SUPPLEMENT MEDICARE PART A & B [employer] MEDEX SUPPLEMENT MEDICARE PART A & B [employer] MEDEX SUPPLEMENT MEDICARE PART A & B [employer] MEDEX SUPPLEMENT MEDICARE PART A & B [employer] CROSS MEDEX SUPPLEMENT MEDICARE PART A & B Care Teams Data Deliverables Manager Relationship Specialty Start Date End Date Darwin Hopper MD [address] [place] [address] PCP - General Internal Medicine 10/22/24 Additional Source Comments The information contained in this document represents components of the legal health record. It is not the complete legal health record.[facility]
--- OUTSIDE RECORDS SUMMARY | 2025-03-29 14:16 | XMS_ITS | Patient Health Record ---
Author Organization [facility] Address [address] [place] [address] Care Team Providers Care Pharmacist In Charge Owner Name Role Phone Darwin Hopper Primary Care Provider Jacki Christianson Unavailable [phone] Jose Baker Unavailable [phone] Allergies Allergen (clinical drug ingredient) Drug/Non Drug [...] tablet Orally Twic e a day Not-Taking [place] 3 Active Metoprolol Succinate Not-Taking Cymbalta Active [...] Status Risk Notes Problem Acquired hallux valgus (45106906) Hallux valgus (acquired), right foot (M20.11) Active confirmed Problem Bilateral atherosclerosis of arteries of lower limbs (disorder) (16487125005316345 ) Atherosclerosis of tejon artery of both lower extremities, with unspecified presence of clinical manifestation (I70.203) Active confirmed Q7(A), Q8(2B), Q9(1B,2 C) Vital Signs Blood pressure diastolic 65 mm Hg 03/08/2025 Height 4ft 11in in 03/08/2025 Blood pressure systolic 126 mm Hg 03/08/2025 Weight 132 lbs 03/08/2025 BMI 26.66 kg/m2 03/08/2025 Procedures Procedure Date Ordered Date Performed Result Body Sit e 39625-AJLKBJB NAIL, 6 OR MORE 06/04/2024 N/A 22217-AESZ SKIN LESIONS, 2 TO 4 06/04/2024 N/A 89071-VYOTVHC NAIL, 6 OR MORE 08/30/2024 N/A 82193 I&D ABSCESS- SIMPLE,SINGLE 08/30/2024 N/A 16080-NVDZ SKIN LESIONS, 2 TO 4 08/30/2024 N/A 70879-DBYWGYQ NAIL, 6 OR MORE 11/29/2024 N/A 55645-AQFH SKIN LESIONS, 2 TO 4 11/29/2024 N/A 35118-LZPQCCZ NAIL, 6 OR MORE 02/28/2025 N/A 83153-CGBE SKIN LESIONS, 2 TO 4 02/28/2025 N/A Encounters Encounter Location Date Provider Diagnosis [address] [address] 06/04/2024 Jose Samuel Atherosclerosis of tejon artery of both lower extremities, with unspecified presence of clinical manifestation I70.203 ; Tinea unguium B35.1 ; Pain in right toe(s) M79.674 ; Pain in left toe(s) M79.675 and Xerosis of skin L85.[address] [address] 08/30/2024 Jose Samuel Atherosclerosis of tejon artery of both lower extremities, with unspecified presence of clinical manifestation I70.203 ; Tinea unguium B35.1 ; Pain in right toe(s) M79.674 ; Pain in left toe(s) M79.675 and Abscess of toe, right L02.[address] [address] 11/29/2024 Jose Samuel Atherosclerosis of tejon artery of both lower extremities, with unspecified presence of clinical manifestation I70.203 ; Tinea unguium B35.1 ; Pain in right toe(s) M79.674 and Pain in left toe(s) M79.[address] [address] 02/28/2025 Jose Samuel Atherosclerosis of tejon artery of both lower extremities, with unspecified presence of clinical manifestation I70.203 ; Tinea unguium B35.1 ; Pain in right toe(s) M79.674 and Pain in left toe(s) M79.675 [facility] [address] [address] 03/08/2025 Jacki Leon Pain in right toe(s) M79.674 ; Onychomycosis B35.1 and Pain in left toe(s) M79.675 [facility] [address] [place] [address] 08/[facility] [address] [place] [address] [facility] [address] 03/08/2025 Jacki Leon Assessments Encounter Date Diagnosis (ICD Code) Assessment Notes Treatment Notes Treatment Clinical Notes Section Notes 06/04/2024 Tinea unguium (ICD-10 - B35.1) 06/04/2024 Atherosclerosis of tejon artery of both lower extremities, with unspecified presence of clinical manifestation (ICD-10 - I70.203) 08/30/2024 Tinea unguium (ICD-10 - B35.1) 08/30/2024 Atherosclerosis of tejon artery of both lower extremities, with unspecified presence of clinical manifestation (ICD-10 - I70.203) Q7(A), Q8(2B), Q9(1B,2C) 11/29/2024 Tinea unguium (ICD-10 - B35.1) 11/29/2024 Atherosclerosis of tejon artery of both lower extremities, with unspecified presence of clinical manifestation (ICD-10 - I70.203) Q7(A), Q8(2B), Q9(1B,2C) 02/28/2025 Tinea unguium (ICD-10 - B35.1) 02/28/2025 Atherosclerosis of tejon artery of both lower extremities, with unspecified presence of clinical manifestation (ICD-10 - I70.203) Q7(A), Q8(2B), Q9(1B,2C) 03/08/2025 Pain in right toe(s) (ICD-10 - M79.674) 03/08/2025 Onychomycosis (ICD-10 - B35.1) 03/08/2025 Pain in left toe(s) (ICD-10 - M79.675) 02/28/2025 Pain in right toe(s) (ICD-10 - M79.674) 11/29/2024 Pain in right toe(s) (ICD-10 - M79.674) 08/30/2024 Pain in right toe(s) (ICD-10 - [...] Order Date *Liver Function Test (LFT) 03/08/2025 46039-EAJVJQB NAIL, 6 OR MORE 11/29/2024 77200-JDYJWNB NAIL, 6 OR MORE 02/28/2025 97272-UHQLCJF NAIL, 6 OR MORE 12/07/2023 68477-KIHLKOZ NAIL, 6 OR MORE 03/08/2024 91141-OMHQFIY NAIL, 6 OR MORE 06/04/2024 57397-EFRYRSD NAIL, 6 OR MORE 08/30/2024 44777-Vzofqbcu Plate 03/08/2024 94588 I&D ABSCESS- SIMPLE,SINGLE 025 39235-DRMQ SKIN LESIONS, 2 TO 4 02/29/20 25 66570-BJNQ SKIN LESIONS, 2 TO 4 11/30/19 25 06292-DAKX SKIN LESIONS, 2 TO 4 03/08/20 24 20961-CKFM SKIN LESIONS, 2 TO 4 12/07/19 24 70529-APHL SKIN LESIONS, 2 TO 4 08/31/19 25 58425-XOUC SKIN LESIONS, 2 TO 4 06/04/20 24 Next Appt Details Provider Name:Jacki koenig, 05/13/2025 02:00:00 PM, [address] [place], [address], Insurance Providers Payer Name Payer Address Payer Phone Subscriber Number Group Number Insured Name Patient Relationship to Insured Coverage Start Date Coverage End Date Medicare [facility] [address] [place] [address] [id number] [place] Navarro Self - patient is the insured [employer] [address] [place] [address] [phone] [id number] [place] Nav[place] Self - patient is the [...]
== END 2025-03-29 15:06 | disposition home or self-care (01) ==
LOC: HO.RHES 14:03
PROVIDERS: PCP Internal Medicine; Visit Provider Student in an Organized Health Care Education/Training Program
DX: M35.00 Sjogren syndrome, unspecified (principal)
CPT/HCPCS: 99204; G2211

== ENCOUNTER 2025-03-29 16:29 | Outpatient (AMB) | payer MEDICARE, SELFPAY ==
[2025-03-29 16:35] VITALS: BP 120/76; PULSE 83; O2SAT 97; BMI 25.6
--- NOTE | 2025-03-29 16:35 | MHC.PC.OV ---
Vital Signs 03/29/25 16:35 Height 5 ft 1 in Weight 135 lb 4 oz BMI 25.6 BP 120/76 Blood Pressure Location Lt brachial Position Sitting Pulse 83 Pulse Source Pulse Oximeter Pulse Oximetry (%) 97 Oxygen Delivery Method Room Air Intake Visit Reasons: Venous insufficiency Chemical Radiation Technician Required: No Accompanied by: Self / Same As Patient Allergies lamotrigine (From LAMICTAL) Allergy (Intermediate, Verified 03/29/25 16:36) RASH Sulfa (Sulfonamide Antibiotics) (SULFA (SULFONAMIDE ANTIBIOTICS)) Allergy (Intermediate, Verified 03/29/25 16:36) UNKNOWN, upset stomach codeine (CODEINE) Allergy (Mild, Verified 03/29/25 16:36) NAUSEA & VOMITING, nausea and vomiting penicillin V (PENICILLIN V) Allergy (Mild, Verified 03/29/25 16:36) NAUSEA & VOMITING, sick to stomach, nausea and vomiting ciprofloxacin (Cipro) Allergy (Unknown, Verified 03/29/25 16:36) sick to stomach ibuprofen (From Motrin) Adverse Reaction (Verified 03/29/25 16:36) sick to stomach, nausea and vomiting Medication List - Last Reconciled 03/29/25 by Gurjit Manuel MD alendronate 70 mg PO QWEEK alprazolam 0.5 mg PO BID PRN calcium carb and citrat-mag ox 200 mg calcium- 50 mg tabs PO cholecalciferol (vitamin D3) 25 mcg PO DAILY ciclopirox 1% topical clotrimazole 1% 1 appl topical BID compress.stocking,knee,reg,med As directed 20-30 mm HG cyclosporine 0.09% (Cequa) 1 drp ophthalmic (eye) Q12H duloxetine 120 mg PO DAILY furosemide (Lasix) 40 mg (2 x 20 mg) PO DAILY miconazole nitrate 2% (Zeasorb AF) 1 appl topical BID multivitamin 1 tab PO DAILY nystatin 6 mL PO QID omega-3 fatty acids 1,000 mg PO DAILY omeprazole 20 mg PO DAILY pyridoxine (vitamin B6) 100 mg PO DAILY 90 days simvastatin 5 mg PO BEDTIME tobramycin-dexamethasone 0.3-0.1 % (TobraDex) ophthalmic (eye) vitamin K2 45 mcg PO DAILY Tobacco use date assessed: 03/29/25 Fall risk assessment: No Falls in past year Last assessed Fall Risk: 03/29/25 Dental Screening Dental Screen Date: 03/29/25 Did you have a dental visit in the last 12 months?: Yes Did you have a dental problem in the last 6 months where you did not have access to dental care?: No Was dental information given to patient?: Patient has dentist HPI HPI Comments History of Present Illness Details The patient is a 74-year-old female presenting with swelling in her lower extremities. The swelling began in the right foot and progressively worsened, prompting consultation with Dr. Calvillo, who suspected a circulatory issue and recommended compression socks. The patient was also prescribed Lasix by Chelsea, which was initially taken for five days with some improvement. The patient was advised to elevate her legs while sleeping and to wear compression stockings at night, although she found it difficult to sleep in this position. She was instructed to take Lasix 40 mg daily, with two refills provided, and to avoid taking it late at night to prevent nocturia. [facility] Medical History (Updated 03/29/25 @ 17:09 by Gurjit Manuel MD) Post-nasal drip Bronchitis Numbness in feet Impacted cerumen of left ear Hoarseness Stye Hoarseness Hip pain, right Lower back pain Colon cancer screening Acute sinusitis Trigger finger of right hand Bile salt-induced diarrhea Osteoarthritis Irritable bowel syndrome GERD (gastroesophageal reflux disease) Essential tremor Hypercholesterolemia Calculus of left kidney Constipation Cholecystectomy planned Right knee meniscal tear Hepatitis Osteoporosis Umbilical hernia History of duodenal ulcer Liver hemangioma Surgical History Hx of tonsillectomy History of cholecystectomy Cataract History of knee surgery History of eyelid surgery H/O adenoidectomy History of appendectomy Family History Father Hypertension Prostate cancer Mother Hypertension Diabetes Dementia Maternal Aunt Gastric cancer Paternal Aunt Gastric cancer Ovarian cancer Paternal Uncle Myocardial infarction Social History Household Members: Spouse Housing: House Do you presently have visiting nurse or other home services: No Alcohol intake: never Patient Tobacco Use Status: Never used Tobacco e-Cigarette/Vaping Use: Never Used Second Hand Smoke Exposure: No service: No Current occupational status: retired Cognitive needs: No Hearing needs: No Vision needs: Yes Questionnaire Thrive Questionnaire Date Thrive assessed: 12/02/24 I am a: Patient What is your living situation today?: I have a steady place to live Within the past 12 months, did the food you bought not last and you didn't have the money to get more?: Never true Within the past 12 months, did you worry whether your food would run out before you got money to buy more?: Never true Do you have trouble paying for medicines?: No Do you have trouble getting transportation to medical appointments?: No Do you have trouble paying your heating and electricity bill?: No Do you have trouble taking care of your child, family member or friend?: Yes Do you have trouble with day-to-day activities such as bathing, preparing meals, shopping, managing finances, etc.?: No Are you currently unemployed and looking for a job?: No Are you interested in more education?: No Currently or been in a relationship where the following occur: No concerns reported THRIVE Score: 0 AUDIT C Alcohol Use Questionnaire (AUDIT-C) 1. How often do you have a drink containing alcohol?: Never 3. How often do you have six or more drinks on one occasion?: Never Total Score: 0 BENITA-7 AMB Questionnaire BENITA-7 Date BENITA - 7 assessed: 12/04/24 Source: Developed by Drs. Benny Marcano, Gina Gonzalez, Obi Guajardo and colleagues, with an educational garcia from [employer]. Review of Systems Const Details: Positives besides what was mentioned in HPI are in BOLD Constitutional: No Weight Change, No Fever, No Chills, No Night Sweats, No Fatigue, No Malaise ENT/Mouth: No Hearing Changes, No Ear Pain, No Nasal Congestion, No Sinus Pain, No Hoarseness, No sore throat, No Rhinorrhea, No Swallowing Difficulty Eyes: No Eye Pain, No Swelling, No Redness, No Foreign Body, No Discharge, No Vision Changes Cardiovascular: No Chest Pain, No SOB, No PND, No Dyspnea on Exertion, No Orthopnea, No Claudication, No Edema, No Palpitations Respiratory: No Cough, No Sputum, No Wheezing, No Smoke Exposure, No Dyspnea Gastrointestinal: No Nausea, No Vomiting, No Diarrhea, No Constipation, No Pain, No Heartburn, No Anorexia, No Dysphagia, No Hematochezia, No Melena, No Flatulence, No Jaundice Genitourinary: No Dysmenorrhea, No DUB, No Dyspareunia, No Dysuria, No Urinary Frequency, No Hematuria, No Urinary Incontinence, No Urgency, No Flank Pain, No Urinary Flow Changes, No Hesitancy Musculoskeletal: No Arthralgias, No Myalgias, No Joint Swelling, No Joint Stiffness, No Back Pain, No Neck Pain, No Injury History Skin: No Skin Lesions, No Pruritis, No Hair Changes, No Breast/Skin Changes, No Nipple Discharge Neuro: No Weakness, No Numbness, No Paresthesias, No Loss of Consciousness, No Syncope, No Dizziness, No Headache, No Coordination Changes, No Recent Falls Psych: No Anxiety/Panic, No Depression, No Insomnia, No Personality Changes, No Delusions, No Rumination, No SI/HI/AH/VH, No Social Issues, No Memory Changes, No Violence/Abuse Hx., No Eating Concerns Heme/Lymph: No Bruising, No Bleeding, No Transfusions History, No Lymphadenopathy Endocrine: No Polyuria, No Polydipsia, No Temperature Intolerance Physical exam (Primary Care) Vital Signs: Last Vital Signs Pulse 83 03/29/25 16:35 BP 120/76 03/29/25 16:35 Pulse Ox 97 03/29/25 16:35 Oxygen Delivery Method Room Air 03/29/25 16:35 BMI result Body Mass Index 25.6 Tobacco/Smoking Status: Tobacco use Status Tobacco use date assessed 03/29/25 03/29/25 16:43 Patient Tobacco Use Status Never used Tobacco 03/29/25 16:35 e-Cigarette/Vaping Use Never Used 03/29/25 16:35 Thrive Assessment: Date of Thrive Assessment Date Thrive assessed 12/02/24 03/29/25 16:35 Currently or been in a relationship where the following occur: No concerns reported Const Other: Pertinent findings are in BOLD GENERAL APPEARANCE NAD, activity normal for age, well developed/ well nourished, no cyanosis, pallor, or diaphoresis. EYES lids/conjunctiva normal. EARS/NOSE/THROAT Mucous membranes moist, nares normal, lips/teeth normal uvula midline without oral pharyngeal erythema, exudate or swelling TMs normal bilaterally. No lymphangitis/lymphedema. HEAD/NECK normocephalic atraumatic, no facial trauma, neck is supple. RESPIRATORY respiratory effort normal, speaks in full sentences, no tripod position, no accessory muscle use. Lungs clear to auscultation without rhonchi, wheezes, rales CARDIAC Regular rate and rhythm, no edema. ABDOMINAL Soft, ND/NT. No evidence of fluid wave. No pulsatile masses on exam, rebound tenderness, Bailey sign or pain over Mcburney's point. MUSCLES/EXTREMITIES No abnormal range of motion, +2 BLLE. SKIN Warm, pink and dry. No rashes, dermatoses, petechiae or lesions. NEUROLOGICAL Speech is clear and appropriate. Normal level of consciousness. Gait and coordination are normal. 5/5 strength in all extremities. PSYCH Normal mood and affect. Judgement/competence is appropriate Coding Level of Care Code Est Pt Level 3 (61143) Diagnoses Edema, lower extremity R60.0 Time Spent (min) 20 Assessment & Plan Assessment & Plan (1) Edema, lower extremity: Code(s): R60.0 - Localized edema Category: Medical Plan: - Increase Lasix to 40 mg daily with two refills provided. Okay to take 20 mg if symptoms improve. - Advise elevation of legs while sleeping and use of compression stockings. - Avoid taking Lasix late at night to prevent nocturia. Plan I discussed with the patient the need to increase the dosage of Lasix to 40 mg daily to manage the swelling in her right foot. I advised her to elevate her legs while sleeping and to wear compression stockings to aid in reducing the edema. I also instructed her to avoid taking Lasix late at night to prevent nocturia and provided two refills for the medication. Medications: Changed From furosemide (Lasix) 20 mg PO DAILY 14 tabs 0RF To furosemide (Lasix) 40 mg (2 x 20 mg) PO DAILY 60 tabs 2RF
== END 2025-03-29 17:03 | disposition home or self-care (01) ==
LOC: HO.HMCH 16:29
PROVIDERS: PCP Internal Medicine; Visit Provider Internal Medicine
DX: R60.0 Localized edema (principal)

== ENCOUNTER 2025-04-10 14:42 | Outpatient (AMB) | payer MEDICARE, SELFPAY ==
--- OUTSIDE RECORDS SUMMARY | 2024-07-05 11:55 | XMS_ITS ---
Author Organization [facility] Address [address] [place] [address] Care Team Providers Care Billet Grinder Name Role Phone Darwin Hopper MD Primary Care Provider Zoltan Grant Jr [phone] REASON FOR VISIT IBS,gerd Encounters Encounter Location Date Provider Diagnosis [facility] [address] [facility] [address] [place] [address] 07/05/2024 Zoltna Vazquez Jr Plan Of Treatment Next Appt Details Provider Name:Zoltan turner Jr, 05/16/2025 02:15:00 PM, [address] [facility], [address], [place], [address], Progress Notes * KIKE TRANDOB:1950 (74 yo F)Acc No.[id number]:07/05/2024 Progress Notes Patient: KIKE MORALES Provider: Adeline Vazquez MD :1950 A ge:74 Y S ex:Female Date:07/05/2024 Address:[address] [place] [address] [id number] Pcp:Darwin Hopper MD Subjective: * Chief Complaints: [...] 0 07/05/2024 Generated for Miranda mariee/Tony/Rodrigo on: 1 06:26 PM EDT
--- OUTSIDE RECORDS SUMMARY | 2024-07-12 10:15 | XMS_ITS ---
Author Organization [facility] Address [address] [place] [address] Care Team Providers Care Manager Home Improvement Name Role Phone Darwin Hopper MD Primary Care Provider Zoltan Grant Jr [phone] REASON FOR VISIT IBS,gerd Encounters Encounter Location Date Provider Diagnosis [facility] [address] [facility] [address] [facility] [address] [place] [address] 07/12/2024 Zoltan Vazquez Jr Plan Of Treatment Next Appt Details Provider Name:Zoltan turner Jr, 05/16/2025 02:15:00 PM, [address] [facility], [address], [place], [address], Progress Notes * KIKE TRANDOB:1950 (74 yo F)Acc No.[id number]:07/12/2024 Progress Notes Patient: KIKE MORALES Provider: Adeline Vazquez MD :1950 A ge:74 Y S ex:Female Date:07/12/2024 Address:[address] [place] [address] [id number] Pcp:Darwin Hopper MD Subjective: * Chief Complaints: [...] 07/12/2024 Generated for Miranda mariee/Tony/Rodrigo on: 1 06:27 PM EDT
--- OUTSIDE RECORDS SUMMARY | 2024-11-22 11:00 | XMS_ITS ---
Author Organization [facility] Address [address] [place] [address] Care Team Providers Care Hospice Art Therapist Name Role Phone Darwin Hopper Primary Care Provider Unavailabl Jacki Sadler Unavailable [phone] Jose Baker [phone] Encounters Encounter [facility] Date [facility] [address] 11/22/2024 Jose Baker Plan Of Treatment Next Appt Details Provider Name:Jacki koenig, 05/13/2025 02:00:00 PM, [address] [place], [address], Progress Notes * DEONNicole MOLINADwainB:1950 ( 74 yo F)Acc No.[id number]:11/22/2024 Progress Note Patient: Madison MORALES Provider: Bobby Baker DPM :1950 A ge:74 Y S ex:Female Date:11/22/2024 Address:[address] [facility] [place] Pcp:Darwin Hopper Subjective: * Chief Complaints: * [...] 11/22/2024 Generated for Miranda mariee/Josh on: 1 06:26 PM EDT
--- OUTSIDE RECORDS SUMMARY | 2025-04-09 09:15 | XMS_ITS ---
Author Organization [facility] Address [address] [address] Care Team Providers Care Slab Off Mill Tender Name Role Phone Darwin Hopper Primary Care Provider Jacki Christianson Unavailable [phone] Allergies Allergen (clinical drug ingredient) Drug/Non Drug Allergy documented on EMR Reaction Allergy Type Onset Date Status codeine Codeine upset stomach Drug Allergy Act alexander Substance with sulfonamide structure and antibacterial mechanism of action (substance) Sulfa Antibiotics rash Drug Allergy Active REASON FOR VISIT Ingrown Nail Medications Medication SIG (Take, Route, Frequency, Duration) Notes Start Date End Date Status Fosamax Active Multivitamin Active Concord 3 Active Omeprazole 20 MG 1 capsule 30 minutes before morning meal Orally Once a day; Duration: 30 day(s) Active Cymbalta Active Ammonium Lactate 12 % 1 application Externally to feet except for between the toes Twice a day; Duration: 30 days Active Azithromycin Active Dupixent 300 MG/2ML 2 mL Subcutaneous Active Calcium Magnesium Ac tive Cequa 0.09 % 1 drop into affected eye Ophthalmic every 12 hrs Active Tinactin Active Asenapine Maleate 2.5 MG 2 tablets under the tongue and allow to dissolve Sublingual Twice a day; Duration: 30 day(s) Not-Taking Lexapro 10 MG 1 tablet Orally Once a day; Duration: 30 day(s) Not-Taking Fluticasone Propionate Not-Taking traZODone HCl 100 MG 1 tablet at bedtime Orally Once a day; Duration: 30 day(s) Not-Taking Ciclopirox 1 % PLEASE SEE ATTACHED FOR DETAILED DIRECTIONS External; Duration: 30 Days Not-Taking Opzelura 1.5 % 1 application Externally Twice a day Not-Takin g ALPRAZolam 0.5 MG 1 tablet Orally Twic e a day Not-Taking Metoprolol Succinate Not-Taking SEROquel 25 MG 1 tablet at bedtime Orally Once a day Not-Taking Simvastatin 5 MG 1 tablet in the even ing Orally Once a day Active Terbinafine HCl 250 MG 1 tablet Orally O nce a day for seven days, hold for 3 weeks then repeat; Duration: 90 days 03/12/2025 Active Triamcinolone Acetonide 0.1 % External; Duration: 30 Days Active Xanax prn Active Vitamin D Active Probiotic Active Vitamin B6 Active Social History Tobacco Use: Social History [...] ast year? No Points 0 Interpretation Negative Vital Signs Blood pressure systolic 98 mm Hg 04/09/20 25 Blood pressure diastolic 68 R mm Hg 025 Heart Rate 84 /min 04/09/2025 Height 4ft 11 in in 04/09/2025 Weight 132 lbs 04/09/2025 BMI 26.66 kg/m2 04/09/2025 Procedures Procedure Date Ordered Date Performed Result Body Sit e 24968-Glkbuhcl Plate 04/09/2025 N/A Encounters Encounter Location Date Provider Diagnosis [facility] [address] [address] 04/09/2025 Jacki Leon Ingrown nail L60.0 Assessments Encounter Date Diagnosis (ICD Code) Assessment Notes Treatment Notes Treatment Clinical Notes Section Notes 04/09/2025 Ingrown nail (ICD-10 - L60.0) Plan Of Treatment Pending Test Test Name Order Date [id number]-Jrdcodui Plate 04/09/2025 Next Appt Details Follow Up: 3 Months, Reason: Provider Name:Jacki koenig, 05/13/2025 02:00:00 PM, [address] [place] [address], [phone], Procedure Notes * Category Sub-Category Detail Notes [...] Motrin was recommended for pain or discomfort - 21369 Anesthesia 3cc of 1 percent Lid ocaine Plain local anesthesic utilizing aseptic technique Location Medial nail border, TA Progress Notes * Nicole NAVARRODwainB:1950 ( 74 yo F)Acc No.[id number]:04/09/2025 Progress Note Patient: Madison MORALES Provider: Heike Leon DPM :1950 A ge:74 Y S ex:Female Date:04/09/2025 Address:[address] [place] [address] Pcp:Darwin Hopper Subjective: * Chief Complaints: * I ngrown Nail * ROS: G eneral/Constitutional: Nausea d enies. [...] enies. C ardiovascular: Pacemaker d enies. M NEEDLE MOLDER d enies. W PW d enies. C [...] D iarrhea d enies. H ematology: Swelling a dmits. C lots d enies. V aricose Veins [...] right 2016 * Hospitalization/Major Diagno stic Procedure: N o Hospitalization History. * Family History: M other: , foot problems, diagnosed with Diabetic - NIDDM, Family history of arthritis. F ather: . S pouse: alive. * Social History: T obacco Use: T obacco use other than smoking A re you an other tobacco user? N o Tobacco Control (Standard) T obacco use: N onsmoker A dditional Findings: Tobacco non-user C urrent nonsmoker D rugs/Alcohol: D rugs H ave you used drugs other than those for medical reasons in the past 12 months? N o D rug/Alcohol: A KESHAWN-C (Standard) D id you have a drink containing alcohol in the past year? N o P oints 0 I nterpretation N egative * Medications: T akingTinactin Ammonium Lactate 12 % Cream 1 application Externally to feet except for between the toes Twice a day Azithromycin Dupixent 300 MG/2ML Solution Prefilled Syringe 2 mL Subcutaneous Calcium Magnesium Cequa 0.09 % Solution 1 drop into affected eye Ophthalmic every 12 hrs Cymbalta Fosamax Multivitamin Concord 3 Omeprazole 20 MG Capsule Delayed Release 1 capsule 30 minutes before morning meal Orally Once a day Probiotic Vitamin B6 Simvastatin 5 MG Tablet 1 tablet in the evening Orally Once a day Terbinafine HCl 250 MG Tablet 1 tablet Orally Once a day for seven days, hold for 3 weeks then repeat Triamcinolone Acetonide 0.1 % Cream External Xanax , Notes to Pharmacist: prnVitamin D Taking Tinactin Taking Ammonium Lactate 12 % Cream 1 application Externally to feet except for between the toes Twice a day Taking Azithromycin Taking Dupixent 300 MG/2ML Solution Prefilled Syringe 2 mL Subcutaneous Taking Calcium Magnesium Taking Cequa 0.09 % Solution 1 drop into affected eye Ophthalmic every 12 hrs Taking Cymbalta Taking Fosamax Taking Multivitamin Taking Concord 3 Taking Omeprazole 20 MG Capsule Delayed Release 1 capsule 30 minutes before morning meal Orally Once a day Taking Probiotic Taking Vitamin B6 Taking Simvastatin 5 MG Tablet 1 tablet in the evening Orally Once a day Taking Terbinafine HCl 250 MG Tablet 1 tablet Orally Once a day for seven days, hold for 3 weeks then repeat Taking Triamcinolone Acetonide 0.1 % Cream External Taking Xanax , Notes to Pharmacist: prnTaking Vitamin D Not-Taking/PRNCiclopirox 1 % Shampoo PLEASE SEE ATTACHED FOR DETAILED DIRECTIONS External Opzelura 1.5 % Cream 1 application Externally Twice a day ALPRAZolam 0.5 MG Tablet 1 tablet Orally [...] List reviewed and reconciled with the patientNot-Taking/PRN Ciclopirox 1 % Shampoo PLEASE SEE ATTACHED FOR DETAILED DIRECTIONS External Not-Taking/PRN Opzelura 1.5 % Cream 1 application Externally Twice a day Not-Taking/PRN ALPRAZolam 0.5 MG Tablet 1 tablet Orally [...] stomachyes[Allergies Verified] Objective: * Vitals: H t:4ft 11 in, Wt:132, BMI:26.66, Shoe size:6-6.5, BP:sittin/68 R, HR:84/min, Ht-cm: 149.86 cm, Wt-k.87 kg. * Examination: I ngrown Nail: INSPECTION: R eveals nail incurvation, pain on palpation, groove hypertrophy , Medial nail border, TA. Assessment: * Assessment: 1. I davidn nail - L60.0 (Primary) S pecify :medial border, TA Plan: * Treatment: * Procedures: N ail Avulsion: Location M edial nail border, TA. Anesthesia 3 cc of 1 percent Lidocaine Plain local anesthesic utilizing aseptic technique. Procedure A fine sterile elevator was placed between the [...] Motrin was recommended for pain or discomfort - 21350. * Procedure Codes: 1 1730 Avulsion Plate, Modifiers: TA * Follow Up: 3 Months * Images: * Sign off status: Completed true * Provider: Heike Leon DPM Date: Generated for Miranda mariee/Tony/Rodrigo on: 06:25 PM EDT History and Physical Notes * Examination Category Sub-Category Detail Notes Category Not es Ingrown Nail INSPECTION: Reveals nail inc urvation, pain on palpation, groove hypertrophy , Medial nail border, TA
--- NOTE | 2025-04-10 14:51 | A.OFFVIS_ITS ---
Intake Visit Reasons: 6m Allergies lamotrigine (From LAMICTAL) Allergy (Intermediate, Verified 03/29/25 16:36) RASH Sulfa (Sulfonamide Antibiotics) (SULFA (SULFONAMIDE ANTIBIOTICS)) Allergy (Intermediate, Verified 03/29/25 16:36) UNKNOWN, upset stomach codeine (CODEINE) Allergy (Mild, Verified 03/29/25 16:36) NAUSEA & VOMITING, nausea and vomiting penicillin V (PENICILLIN V) Allergy (Mild, Verified 03/29/25 16:36) NAUSEA & VOMITING, sick to stomach, nausea and vomiting ciprofloxacin (Cipro) Allergy (Unknown, Verified 03/29/25 16:36) sick to stomach ibuprofen (From Motrin) Adverse Reaction (Verified 03/29/25 16:36) sick to stomach, nausea and vomiting Medication List - Last Reconciled 04/10/25 by Renan Trevizo MD alendronate 70 mg PO QWEEK alprazolam 0.5 mg PO ONCE calcium carb and citrat-mag ox 200 mg calcium- 50 mg tabs PO cholecalciferol (vitamin D3) 25 mcg PO DAILY ciclopirox 1% topical clotrimazole 1% 1 appl topical BID compress.stocking,knee,reg,med As directed 20-30 mm HG cyclosporine 0.09% (Cequa) 1 drp ophthalmic (eye) Q12H duloxetine 120 mg PO DAILY furosemide (Lasix) 40 mg (2 x 20 mg) PO DAILY multivitamin 1 tab PO DAILY nystatin 6 mL PO QID omega-3 fatty acids 1,000 mg PO DAILY omeprazole 20 mg PO DAILY pyridoxine (vitamin B6) 100 mg PO DAILY 90 days simvastatin 5 mg PO BEDTIME tobramycin-dexamethasone 0.3-0.1 % (TobraDex) ophthalmic (eye) vitamin K2 45 mcg PO DAILY HPI Comments Details: 74 yr woman with essential tremors. She has venous insufficiency in right foot. Saw a vascular surgeon an di swearing compression stockings. Also being treated for eczema. Tremors in hands are worse at times. Having a lot of med changes for depression. Also has a dry moth and burning in the mouth and dry eyes. Occasional little shake in neck. Sleeping ok. Tried Latuda, Raxalti and wellbutrin for 7-10 days each ( Dr. Franz) . Body gets hot and can't control it. She also has poor memory for old events. gets some depersonalization when she is driving. Did not wear the new hearing aids for her tinnitus as they were causing more problems. Learning to ignore the tinnitus. Gets some tension headaches. Depression has been been better with increased dose of lexapro. Her liver enzymes are high. She was put on Prozac 20 and then 40mg. has pulmonary fibrosis. Eyes feel tired and pressure. Had eye exam- normal. Occasi onal loss of balance like being pushed. She is complaining of tinnitus in both ears. H/o chronic photophobia predating ORTIZ, but no nausea or vomiting. No aura symptoms. No further episodes of vertigo and dizziness. Patient is no longer having shaking in the hands. Occasional lightheadedness. She has anxiety and depression problems since her mother . She's been having some memory problems and loses train of thought and what she was doing. Family history of tremors. Has long history of depression and anxiety and has great deal of difficulty trying to sleep at night first to move her legs and sometimes sleeps excessively for 12 hours or more. She is always under stress depressed and anxious. She has panic attacks. Has attacks with palpitation and tremulousness. At times feels a cloud hanging above her and struggles to get OOB. More anxiety than depression. [facility] Medical History (Updated 04/10/25 @ 14:55 by Renan Trevizo MD) Post-nasal drip Bronchitis Numbness in feet Impacted cerumen of left ear Hoarseness Stye Hoarseness Hip pain, right Lower back pain Colon cancer screening Acute sinusitis Trigger finger of right hand Bile salt-induced diarrhea Osteoarthritis Irritable bowel syndrome GERD (gastroesophageal reflux disease) Essential tremor Hypercholesterolemia Calculus of left kidney Constipation Cholecystectomy planned Right knee meniscal tear Hepatitis Osteoporosis Umbilical hernia History of duodenal ulcer Liver hemangioma Surgical History Hx of tonsillectomy History of cholecystectomy Cataract History of knee surgery History of eyelid surgery H/O adenoidectomy History of appendectomy Family History Father Hypertension Prostate cancer Mother Hypertension Diabetes Dementia Maternal Aunt Gastric cancer Paternal Aunt Gastric cancer Ovarian cancer Paternal Uncle Myocardial infarction Social History Household Members: Spouse Housing: House Do you presently have visiting nurse or other home services: No Alcohol intake: never Patient Tobacco Use Status: Never used Tobacco e-Cigarette/Vaping Use: Never Used Second Hand Smoke Exposure: No service: No Current occupational status: retired Cognitive needs: No Hearing needs: No Vision needs: Yes Review of Systems Const Details: ?Sleep:? Difficulty getting to sleepadmits.? Difficulty maintaining sleepdenies?.? Urge to move legsadmits.? Teeth grindingadmits.? Shouting or Kicking during sleep denies.? Abnormal behavior during sleepdenies.? Excessive sleepadmits.? Snoring denies.? Daytime sleepinessdenies. ???General/Constitutional:? Change in appetitedenies.? Chillsdenies.? Fatigueadmits.? Feverdenies.? Weight gaindenies.? Weight lossdenies. ???Ophthalmologic:? Blurred visiondenies.? Diminished visual acuitydenies. ???ENT:? Stuffinessdenies.? Decreased hearingdenies.? Dry mouthdenies.? Ear paindenies.? Nosebleeddenies.? Ringing in the earsadmits.? Sinus paindenies.? Sore throat denies.? Swollen glandsdenies. ???Endocrine:? Cold intolerancedenies.? Excessive thirstdenies.? Frequent urinationdenies.? Heat intolerancedenies. ???Respiratory:? Shortness of breathdenies.? Chest paindenies.? Coughdenies. ???Breast:? Breast lumpdenies.? Nipple dischargedenies. ???Cardiovascular:? Chest pain at restdenies.? Chest pain with exertiondenies.? Claudicationdenies .? Dizzinessdenies.? Fluid accumulation in the legsdenies.? Irregular heartbeat denies.? Palpitationsdenies. ???Gastrointestinal:? Abdominal paindenies.? Constipationdenies.? Diarrheadenies.? Difficulty swallowingdenies.? Heartburndenies.? Nauseadenies.? Rectal bleedingdenies. ???Hematology:? Easy bruisingdenies.? Prolonged bleedingdenies. ???Genitourinary:? Frequent urinationdenies.? Urgencydenies.? Incontinencedenies.? Erectile Dysfunctiondenies. ???Musculoskeletal:? Neck painadmits.? Back paindenies.? Muscle achesdenies.? Painful jointsdenies.? Sciaticadenies.? Weaknessdenies. ???Podiatric:? Difficulty walkingdenies.? Foot numbnessdenies. ???Neurologic:? Difficulty swallowingdenies.? Balance difficultyadmits.? Coordinationnormal.? Difficulty speakingdenies.? Dizzinessadmits.? Faintingdenies.? Gait abnormality denies.? Headacheadmits.? Loss of strengthdenies.? Loss of use of extremity denies.? Low back paindenies.? Memory lossadmits.? Seizuresdenies.? Ticsdenies.? Tingling/Numbnessdenies.? Transient loss of visiondenies.? Tremoradmits. ???Psychiatric:? Anxietyadmits.? Auditory/visual hallucinationsdenies.? Delusionsdenies.? Depressed moodadmits.? Stressorsadmits.? Substance abusedenies.? Suicidal thoughtsdenies. Physical Exam Neuro Other: Neurological: Abnormal neurological findings:??Tremors of extended UE in fingers and on finger to nose test. Mild truncal ataxia on tandem walking. ..?Mental Status:??alert and oriented X 3,?Normal attention, orientation, memory and affect.?Cranial Nerves:??Pupils are equal, round and reactive to light. Fundoscopy shows normal disc bilaterally. External occular muscles are intact. Visual jamil are full, no ptosis. Face is symmetrical, no facial weakness or droop. Facial sensations are normal. Tongue protrudes in midline. Palate elevates symmetrically. Shoulder shrugging is normal..?Motor Examination:??Normal muscle tone, bulk and strength,?No atrophy or fasciculations,?No drift of the extended upper extremities,?Deep tendon reflexes are 2+?,?Plantars are flexor?.?Straight Leg Raising:??90 degrees.?Sensory Exam:??Normal light touch, temperature, pinprick, vibration and joint-position sensations?,?Rhomberg sign is absent.?Coordination:??no ataxia,?no titubation,?hhtzcu-pc-tznr, cxmb-kzno-heqz test and rapid alternating movements were normal.?Gait Exam:??Within normal limits truncal ataxia on tandem walking.?Cerebellar Signs:??Pcvrvn-yo-dnwg and hpia-wn-irla is normal,?no dysd iadochokinesia?.?Extrapyramidal System:??tremor as above. No rigidity with normal facial expressions,?No bradykinesia, no bradyphrenia. Normal arm swing and posture. No propulsion or retropulsion.?Speech:??Normal,?no dysphasia or dysarthria..? Mini Mental Status Exam: Level of Consciousness:??Alert.?Orientation:??Knows correct year, month, date, day and season,?Knows correct city, county and state. Knows correct location and floor.?Registration:??Able to register 3 objects.?Attention:??Serial 7's performed accurately.?Recall:??Able to recall 3 out of 3 objects. ?Language:??Normal spontaneous speech, fluency, repetition,naming, comprehension, reading and writing.?Total Score:??30/30.? General Examination: GENERAL APPEARANCE:??normal,?in no acute distress.?HEART:??S1, S2 normal,?no murmurs.?LUNGS:??clear anteriorly and posteriorly.?MUSCULOSKELETAL:??normal.?EXTREMITIES:??no edema.?PSYCH:??alert, oriented,?cognitive function intact,?cooperative with exam.? Assessment & Plan Assessment & Plan (1) Essential tremor: Comment: Drug induced/ exacerbated tremor of hands. 2021 210 EEG- WNL. 2016 EEG normal. 2016 MRI brain normal. Code(s): G25.0 - Essential tremor Category: Medical (2) Tension headache: Code(s): G44.209 - Tension-type headache, unspecified, not intractable Category: Medical Plan Continue current meds Coding Level of Care Code Est Pt Level 4 (63149) Diagnoses Essential tremor G25.0 Tension headache G44.209
--- OUTSIDE RECORDS SUMMARY | 2025-04-10 18:26 | XMS_ITS | Patient Health Record ---
Author Organization [facility] Address [address] [place] [address] Care Team Providers Care Systems Test Analyst Name Role Phone Darwin Hopper MD Primary Care Provider Zoltan Grant Jr Allergies [...] Multi Vitamin/Minerals - 1 Orally QD Active Brooklyn 3 1000 MG 1 AND half capsule [...] Once a day; Duration: 30 day(s) Active Cequa 0.09 % 1 drop into affected eye Ophthalmic every 12 hrs Active Diflucan 03/30/2021 Active Vitamin B-6 50 MG 1 tablet Orally Once a day Active Vitamin K Active Omeprazole 20 MG Orally Act alexander Vitamin D 50 MCG (1999) 1 capsule Ora lly Once a day; Duration: 30 day(s) Active Asenapine Maleate 2.[address] ONE TABLE T UNDER THE TONGUE 2 TIMES DAY Sublingual; Duration: 30 Active ALPRAZolam 0.5 MG 1 tablet [...] Problem Status W/U Status Risk Notes Problem Left lower quadrant pain (700526937) Left lower quadrant pain (R10.32) Active confirmed Problem Functional diarrhea (33961755) Functional diarrhea (K59.1) Active confirmed Problem Backache (653444990) Dorsalgia, unspecified (M54.9) Active confirmed Problem Elevated liver enzymes level (819521829) Elevated LFTs (R79.89) Active confirmed Problem Gastroesophageal reflux disease without esophagitis (464032753) Gastroesophageal reflux disease without esophagitis (K21.9) Active confirmed Problem Dysphagia (24061042) Dysphagia, unspecified type (R13.10) Active confirmed Problem Left lower quadrant pain (066345985) Abdominal pain, LLQ (R10.32) Active confirmed Problem Irritable bowel syndrome characterized by constipation (295827155) Irritable bowel syndrome with constipation (K58.1) Active confirmed Problem Family history of polyp of colon (910232804) FH: colon polyps (Z83.71) Active confirmed Problem Left lower quadrant pain (207411558) LLQ pain (R10.32) Active confirmed Vital Signs Temperature 98.6 degrees Fahrenheit 10/22/2024 Blood pressure diastolic 01 mm Hg 10/22/2024 Height 61 in 10/22/2024 Blood pressure systolic 001 mm Hg 10/22/2024 Weight 131.6 lbs 10/22/2024 BMI 24.86 kg/m2 10/22/2024 Encounters Encounter Location Date Provider Diagnosis [facility] [address] [place] [phone] 10/22/2024 Zoltan Vazquez Jr Gastroesophageal reflux disease without esophagitis K21.9 and Irritable bowel syndrome with constipation K58.1 [facility] [address] [place] [phone] 07/11/2024 Zoltan Vazquez Jr Assessments Encounter Date [...] Next Appt Details Provider Name:Zoltan turner , 05/16/2025 02:15:00 PM, [address] [place] [address], [address], [place], [address], Insurance Providers Payer Name Payer Address Payer Phone Subscriber Number Group Number Insured Name Patient Relationship to Insured Coverage Start Date Coverage End Date MEDICARE OF [place] [address] [place] [id number] [phone] [id number] HO[place] TRANA Self - patient is the insured [employer] ATTN CLAIMS [address] [place] [address] [id number] HOLLY TRANA Self - patient is the [...]
--- OUTSIDE RECORDS SUMMARY | 2025-04-10 18:27 | XMS_ITS | Patient Health Record ---
[facility] Organization [facility] Address [address] [place] [address] Care Team Providers Care Sales Demonstrator Name Role Phone Darwin Hopper Primary Care Provider Jacki Christianson Unavailable [phone] Jose Baker Unavailable [phone] Allergies Allergen (clinical drug ingredient) Drug/Non Drug [...] e a day Not-Taking Metoprolol Succinate Not-Taking Tinactin Active SEROquel 25 MG 1 tablet at bedtime Orally Once a day Not-Taking Ammonium Lactate 12 % 1 application Externally to feet except for between the toes Twice a day; Duration: 30 days Active Asenapine Maleate 2.5 MG 2 tablets under the tongue and allow to dissolve Sublingual Twice a day; Duration: 30 day(s) Not-Taking Azithromycin Active Lexapro 10 MG 1 tablet Orally Once a day; Duration: 30 day(s) Not-Taking Dupixent 300 MG/2ML 2 mL Subcutaneous Active Fluticasone Propionate Not-Taking Calcium Magnesium Ac tive traZODone HCl 100 MG 1 tablet at bedtime Orally Once a day; Duration: 30 day(s) Not-Taking Cequa 0.09 % 1 drop into affected eye Ophthalmic every 12 hrs Active Cymbalta Active Fosamax Active Multivitamin Active Parowan 3 Active Omeprazole 20 MG 1 capsule 30 minutes before morning meal Orally Once a day; Duration: 30 day(s) Active Probiotic Active Vitamin B6 Active Simvastatin 5 MG 1 tablet in the even ing Orally Once a day Active Terbinafine HCl 250 MG 1 tablet Orally O nce a day for seven days, hold for 3 weeks then repeat; Duration: 90 days 03/12/2025 Active Triamcinolone Acetonide 0.1 % External; Duration: 30 Days Active Xanax prn Active Vitamin D Active Ciclopirox 1 % PLEASE SEE ATTACHED FOR DETAILED DIRECTIONS External; Duration: 30 Days Not-Taking Immunizations Vaccine Route Administration Date Status Comme nts Influenza Unknown 04/10/2024 Administered Influenza Unknown 04/02/2025 Administered Social History Tobacco Use: Social History [...] Status Risk Notes Problem Acquired hallux valgus (71895032) Hallux valgus (acquired), right foot (M20.11) Active confirmed Problem Bilateral atherosclerosis of arteries of lower limbs (disorder) (42092581194702745 ) Atherosclerosis of stebbins artery of both lower extremities, with unspecified presence of clinical manifestation (I70.203) Active confirmed Q7(A), Q8(2B), Q9(1B,2 C) Vital Signs Heart Rate 84 /min 04/09/2025 Blood pressure diastolic 68 R mm Hg 04/09/2025 Height 4ft 11 in in 04/09/2025 Blood pressure systolic 98 mm Hg 04/09/2025 Weight 132 lbs 04/09/2025 BMI 26.66 kg/m2 04/09/2025 Procedures Procedure Date Ordered Date Performed Result Body Sit e 60759-JYEYKDX NAIL, 6 OR MORE 06/04/2024 N/A 85691-BJEQ SKIN LESIONS, 2 TO 4 06/04/2024 N/A 28443-NWWZZRY NAIL, 6 OR MORE 08/30/2024 N/A 73589 I&D ABSCESS- SIMPLE,SINGLE 08/30/2024 N/A 98690-NUCM SKIN LESIONS, 2 TO 4 08/30/2024 N/A 55203-SBHWVWF NAIL, 6 OR MORE 11/29/2024 N/A 24391-QIVA SKIN LESIONS, 2 TO 4 11/29/2024 N/A 65313-DKPGAAP NAIL, 6 OR MORE 02/28/2025 N/A 17356-HRGE SKIN LESIONS, 2 TO 4 02/28/2025 N/A 87712-Ifhreqiz Plate 04/09/2025 N/A Encounters Encounter Location Date Provider Diagnosis [address] [address] 06/04/2024 Jose Samuel Atherosclerosis of stebbins artery of both lower extremities, with unspecified presence of clinical manifestation I70.203 ; Tinea unguium B35.1 ; Pain in right toe(s) M79.674 ; Pain in left toe(s) M79.675 and Xerosis of skin L85.[address] [address] 08/30/2024 Jose Samuel Atherosclerosis of stebbins artery of both lower extremities, with unspecified presence of clinical manifestation I70.203 ; Tinea unguium B35.1 ; Pain in right toe(s) M79.674 ; Pain in left toe(s) M79.675 and Abscess of toe, right L02.[address] [address] 11/29/2024 Jose Samuel Atherosclerosis of stebbins artery of both lower extremities, with unspecified presence of clinical manifestation I70.203 ; Tinea unguium B35.1 ; Pain in right toe(s) M79.674 and Pain in left toe(s) M79.[address] [address] 02/28/2025 Jose Samuel Atherosclerosis of stebbins artery of both lower extremities, with unspecified presence of clinical manifestation I70.203 ; Tinea unguium B35.1 ; Pain in right toe(s) M79.674 and Pain in left toe(s) M79.675 [facility] [address] [address] 03/08/2025 Jacki Leon Pain in right toe(s) M79.674 ; Onychomycosis B35.1 and Pain in left toe(s) M79.675 [facility] [address] [address] 04/09/2025 Jackiisabella Leon Ingrown nail L60.[address] [address] 08/27/2024 Joselydia Baker [facility] [address] [place] [address] 03/07/2025 Joselydia Baker [facility] [address] [place] [address] 03/08/2025 Jacki Leon [address] [address] 04/03/2025 Jacki Leon Assessments Encounter Date Diagnosis (ICD Code) Assessment Notes Treatment Notes Treatment Clinical Notes Section Notes 06/04/2024 Tinea unguium (ICD-10 - B35.1) 06/04/2024 Atherosclerosis of stebbins artery of both lower extremities, with unspecified presence of clinical manifestation (ICD-10 - I70.203) 08/30/2024 Tinea unguium (ICD-10 - B35.1) 08/30/2024 Atherosclerosis of stebbins artery of both lower extremities, with unspecified presence of clinical manifestation (ICD-10 - I70.203) Q7(A), Q8(2B), Q9(1B,2C) 11/29/2024 Tinea unguium (ICD-10 - B35.1) 11/29/2024 Atherosclerosis of stebbins artery of both lower extremities, with unspecified presence of clinical manifestation (ICD-10 - I70.203) Q7(A), Q8(2B), Q9(1B,2C) 02/28/2025 Tinea unguium (ICD-10 - B35.1) 02/28/2025 Atherosclerosis of stebbins artery of both lower extremities, with unspecified presence of clinical manifestation (ICD-10 - I70.203) Q7(A), Q8(2B), Q9(1B,2C) 03/08/2025 Pain in right toe(s) (ICD-10 - M79.674) 03/08/2025 Onychomycosis (ICD-10 - B35.1) 04/09/2025 Ingrown nail (ICD-10 - L60.0) 03/08/2025 Pain in left toe(s) (ICD-10 - [...] Order Date *Liver Function Test (LFT) 03/08/2025 19757-MHJJKEV NAIL, 6 OR MORE 11/29/2024 83221-CHBMAHU NAIL, 6 OR MORE 02/28/2025 73322-OIEYBRI NAIL, 6 OR MORE 12/07/2023 65567-KSCRDXY NAIL, 6 OR MORE 03/08/2024 08887-UPMFDWH NAIL, 6 OR MORE 06/04/2024 13803-VRREOER NAIL, 6 OR MORE 08/30/2024 09454-Dowcicwn Plate 03/08/2024 34580-Pmnknfjk Plate 04/09/2025 46059 I&D ABSCESS- SIMPLE,SINGLE 025 51971-NTEA SKIN LESIONS, 2 TO 4 02/29/20 25 25438-VAFF SKIN LESIONS, 2 TO 4 11/30/19 25 85209-MMGS SKIN LESIONS, 2 TO 4 03/08/20 24 96162-NGEQ SKIN LESIONS, 2 TO 4 12/07/19 24 56124-BJII SKIN LESIONS, 2 TO 4 08/31/19 25 80947-GVNJ SKIN LESIONS, 2 TO 4 06/04/20 24 Next Appt Details Provider Name:Jacki Soto arya, 05/13/2025 02:00:00 PM, [address] [place], [address], Insurance Providers Payer Name Payer Address Payer Phone Subscriber Number Group Number Insured Name Patient Relationship to Insured Coverage Start Date Coverage End Date Medicare [facility] [address] [place] [address] [id number] Madison Navarro Self - patient is the insured [facility] [address] [place] [address] [id number] Madison Navarro Self - patient is the [...]
--- OUTSIDE RECORDS SUMMARY | 2025-04-10 18:27 | XMS_ITS | Patient Health Record ---
Author Organization [facility] Address [address] [place] [address] Care Team Providers Care Wash Helper Name Role Phone CARROLL SHANNON M.D. Primary Care Provider Analilia Manning Unavailable [phone] Allergies Allergen (clinical drug ingredient) Drug/Non Drug [...] even ing Orally Once a day Active Elgin 3 1000 MG 1 capsule Orally Onc [...] Status Risk Notes Problem Gynecological examination abnormal (363604996464051) Encounter for gynecological examination (general) (routine) with abnormal findings (Z01.411) Active confirmed Problem Postmenopausal atrophic vaginitis (72390077) Postmenopausal atrophic vaginitis (N95.2) Active confirmed Problem Age-related osteoporosis (369926431) Age-related osteoporosis without current pathological fracture (M81.0) Active confirmed Problem Urinary incontinence (781229890) Unspecified urinary incontinence (R32) Active confirmed Problem Constipation (37534834) Constipation, unspecified (K59.00) Active confirmed Problem Anxiety state (449938138) Anxiety state, unspecified (300.00) Active confirmed Major Problem Depressive disorder (39579781) Depressive disorder, not elsewhere classified (311) Active confirmed Major Problem Dyspareunia (87357385) Dyspareunia (625.0) Active confirmed Diag Problem Female stress incontinence (69387730) Female stress incontinence (625.6) Active confirmed Major Problem Menopausal symptom (94897679) Symptomatic menopausal or female climacteric states (627.2) Active confirmed Major Problem Postmenopausal atrophic vaginitis (15725308) Postmenopausal atrophic vaginitis (627.3) Active confirmed Diag Problem Osteoporosis (84270658) Unspecified osteoporosis (733.00) Active confirmed Problem Gynecological examination normal (250220201351210) Routine gynecological examination (V72.31) Active confirmed Major Problem Screening for malignant neoplasm of colon (257635378) Special screening for malignant neoplasms, colon (V76.51) Active confirmed Major Vital Signs Temperature 97.4 degrees Fahrenheit 06/28/2024 Blood pressure diastolic 74 mm Hg 06/28/2024 Height 60.8 in 06/28/2024 Blood pressure systolic 108 mm Hg 06/28/2024 Weight 140 lbs 06/28/2024 BMI 26.62 kg/m2 06/28/2024 Encounters Encounter Location Date Provider Diagnosis [facility] [employer] [address] [place] [address] 06/28/2024 Analilia Galvan Encounter for gynecological examination [...] Name:Analilia Caraballo chelitavalerierachael, 07/05/2025 03:00:00 PM, [address], [address], [place], [address], Insurance Providers Payer Name Payer Address Payer Phone Subscriber Number Group Number Insured Name Patient Relationship to Insured Coverage Start Date Coverage End Date MEDICARE [address] [place] [id number] DEONHOLLY MOLINAA Self - patient is the insured [employer] [address] [place] [address] [id number] HOLLY TRANA Self - patient is [...]
--- OUTSIDE RECORDS SUMMARY | 2025-04-10 18:27 | XMS_ITS ---
Author Name Sudhir Sofia Address Unknown Organization [facility] Care Team Providers Care Labor Arbitrator Hearing Office Name Role Phone Unavailable Primary Care Physician Unavailab le History Of Present Illness No Data Allergies, Adverse Reactions, Alerts Substance RxNorm Reaction(s) Severity Status Start Da te codeine 2670 unspecified active Lamictal 390880 unspecified active Motrin 20240202 unspecified active Penicillins unspecified active amoxicillin GI upset, Other: Thrush unspecified ac tive Medications Medication Generic Name RxNorm Strength Strength Unit Route Dose Dose Form Frequency Date Started Date Ended Status Indication Sig ammonium lactate ammonium lactate 555957 12 % Topica l cream 08/21/19 25 active Appl y a thin laye r to dry skin QD - avoi d face and skin fold s. ciclopirox ciclopir ox 875534 1 % Topica l shamp oo 11/13/19 25 active Appl y and late r into scal p and allo w to sit for 5 wilbert rodney befo re rins ing out. Repe at 2 -4 time s per week for best resu lts. clobetasol clobetas [place] 909342 0.05 % Topica l shamp oo 08/24/19 25 active Appl y a thin film to dry scal p once viktor y for 7 days on, 7 days off. Allo w to sit for 15 wilbert rodney, then add wate r, lath er, and rins e thor ough ly. Repe at PRN only to rhina ge itch y rash . desonide desonide 426197 0.05 % Topica l ointm ent 08/24/19 25 active Appl y a very thin laye r to crac ked, dry, fiss ured lips BID 7 days on, 7 days off to rhina ge rash . Only repe at PRN. Do not get insi de of the mout h. fluocinonid e fluocino nide 140308 0.05 % Topica l solut ion 08/21/19 25 active Appl y a thin laye r to itch y scal p BID 2 week s on, 1 week off. Repe at PRN to rhina ge rash . ketoconazol e ketocona zole 704032 2 % Topica l shamp oo 11/03/19 25 active Appl y and lath er into scal p and allo w to sit for 5 wiblert rodney befo re rins ing out. Repe at 2-4 time s per week for best resu lts. Opzelura ruxoliti nib 6270559 1.5 % Topica l cream 10/13/19 25 active Appl y a thin laye r to itch y skin on trun k and extr emit ies BID to rhina ge ecze ma symp toms . triamcinolo ne acetonide triamcin olone acetonid e 5933285 0.1 % Topica l cream BID 08/21/19 25 active Appl y a thin laye r to rash on arms , legs , ches t, abdo men, back BID 2 week s on, 1 week off. Ok to mix with topi abner loti on. Repe at appl icat ion of ster oids to rash only as need ed for reli ef. Chlorasepti c Throat Argillite phenol 9294467 1.4 % Mucous membra ne 1 aeros ol, spray as needed 09/01/19 25 active Spra y to affe cted skin insi de the mout h, swis h/le t sit for 15 seco nds and then expe ctor ate. May repe at ever y 2 hrs PRN for reli ef. Mouth Pain benzocai ne 404164 20 % Mucous membra ne liqui d 08/30/19 25 active Spra y to affe cted area s with in the mout h 2-4 time s per day for reli ef. alendronate 923941 70 mg Oral 1 tabl e t weekly active alprazolam 684988 0.5 mg Oral 1 table t daily active duloxetine 382585 120 mg Oral 1 capsu le,de layed relea se (ente celia coate d) daily active hydroxyzine HCl hydroxyz ine HCl 10 mg Oral 1 table t QD active omeprazole 243464 20 mg Oral 1 capsu le,de layed relea se (ente celia coate d) daily active Salagen (pilocarpin e) pilocarp ine HCl 9069592 7.5 mg Oral 1 table t QD 08/30/19 25 active Take one pill by mout h BID simvastatin 503301 5 mg Oral 1 tabl e t daily active Dupixent Pen dupiluma b 1071957 300 mg/2 mL Subcut aneous pen injec [...] Diagnosis Date of Resolution Atopic dermatitis (disorder) 64776917(S NOMED) Diagnosis active 04/05/2025 Atopic dermatitis (disorder) 51788330(S NOMED) Diagnosis active 04/01/2025 Atopic dermatitis (disorder) 16821803(S NOMED) Diagnosis active 03/18/2025 Atopic dermatitis (disorder) 65674079(S NOMED) Diagnosis active 03/13/2025 Atopic dermatitis (disorder) 61955640(S NOMED) Diagnosis active 03/11/2025 Atopic dermatitis (disorder) 64972772(S NOMED) Diagnosis active 03/06/2025 Atopic dermatitis (disorder) 81110393(S NOMED) Diagnosis active 03/04/2025 Atopic dermatitis (disorder) 54558161(S NOMED) Diagnosis active 02/28/2025 Atopic dermatitis (disorder) 60993683(S NOMED) Diagnosis active 02/26/2025 Atopic dermatitis (disorder) 84266073(S NOMED) Diagnosis active 02/26/2025 Atopic dermatitis (disorder) 07848606(S NOMED) Diagnosis active 02/22/2025 Atopic dermatitis (disorder) 51580537(S NOMED) Diagnosis active 01/30/2025 Peripheral venous insufficiency (disorder) 23868911(S NOMED) Diagnosis active 01/30/2025 Atopic dermatitis (disorder) 76981972(S NOMED) Diagnosis active 01/11/2025 Atopic dermatitis (disorder) 03651840(S NOMED) Diagnosis active 01/01/2025 Asteatosis cutis (disorder) 10831945(S NOMED) Diagnosis active 11/30/2024 Plicated tongue (disorder) 75304456(S NOMED) Diagnosis active 10/31/2024 Asteatosis cutis (disorder) 61347097(S NOMED) Diagnosis active 10/31/2024 Itching of skin (finding) 262892327( SNOMED) Diagnosis active 10/31/2024 Plicated tongue (disorder) 34750456(S NOMED) Diagnosis active 10/02/2024 Asteatosis cutis (disorder) 79248479(S NOMED) Diagnosis active 10/02/2024 Plicated tongue (disorder) 91311534(S NOMED) Diagnosis active 09/18/2024 Asteatosis cutis (disorder) 89865005(S NOMED) Diagnosis active 09/18/2024 Disorder of skin (disorder) 53896338(S NOMED) Diagnosis active 09/18/2024 Asteatosis cutis (disorder) 62523153(S NOMED) Diagnosis active 09/07/2024 Surgical follow-up (finding) 760067046( SNOMED) Diagnosis active 09/07/2024 Repetitive self-excoriation (disorder) 581983786( SNOMED) Diagnosis active 09/07/2024 Other pruritus L29.89(ICD -10) Diagnosis active 09/07/2024 Inflammatory dermatosis (disorder) 351149903( SNOMED) Diagnosis active 08/29/2024 Recurrent aphthous stomatitis (disorder) 443197850( SNOMED) Diagnosis active 08/29/2024 Skin changes due to chronic exposure to non-ionizing radiation (disorder) 186507146( SNOMED) Diagnosis active 08/29/2024 Asteatosis cutis (disorder) 30695216(S NOMED) Diagnosis active 08/29/2024 Inflammatory dermatosis (disorder) 141486257( SNOMED) Diagnosis active 08/21/2024 Mucous membrane dryness (finding) 196889365( SNOMED) Diagnosis active 08/21/2024 Itching of skin (finding) 682718452( SNOMED) Diagnosis active 09/08/2015 Candidiasis (disorder) 67021682(S NOMED) Diagnosis active 05/26/2015 Disorder of skin and/or subcutaneous tissue (disorder) 36495296(S NOMED) Diagnosis active 05/08/2015 Pruritic disorder (disorder) 985027936( SNOMED) Diagnosis active 03/17/2015 Disorder of skin pigmentation (disorder) 30015723(S NOMED) Diagnosis active 02/14/2015 Other specified health status Z78.9(ICD- 10) Diagnosis active 01/09/2015 History of pneumonia (situation) 390156921( SNOMED) Diagnosis active 01/09/2015 Pruritic disorder (disorder) 969365132( SNOMED) Diagnosis active 01/09/2015 Pruritic disorder (disorder) 452155759( SNOMED) Diagnosis active 12/03/2014 Pruritic disorder (disorder) 662223014( SNOMED) Diagnosis active 11/26/2014 Pruritic disorder (disorder) 748087212( SNOMED) Diagnosis active 11/19/2014 Pruritic disorder (disorder) 187192675( SNOMED) Diagnosis active 11/05/2014 Disorder of skin and/or subcutaneous tissue (disorder) 77710311(S NOMED) Diagnosis active 10/23/2014 Pruritic disorder (disorder) 825114539( SNOMED) Diagnosis active 10/14/2014 Pruritic disorder (disorder) 889390367( SNOMED) Diagnosis active 08/08/2014 Disorder of skin and/or subcutaneous tissue (disorder) 52087836(S NOMED) Diagnosis active 05/01/2014 Lichenification and lichen simplex chronicus (disorder) 755893665( SNOMED) Diagnosis active 04/11/2014 Cheilitis (disorder) 3348927(SN OMED) Diagnosis active 02/26/2014 Anxiety disorder (disorder) 906614015( SNOMED) Problem active Depressive disorder (disorder) 47100318(S NOMED) Problem active History of hypertension (situation) 021272257( SNOMED) Problem active Hypercholesterolemia (disorder) 53730669(S NOMED) Problem active Osteoarthritis (disorder) 938436169( SNOMED) Problem active Results No data Encounters Service provided at [address], [address], [place], [place] [id number]. Office phonenumber is [phone]. Office fax number is [phone]. Encounter Diagnosis Location Date / Time Type Eczema (L20.89) [facility] 04/05/2025 18:00:00 UTC N I Reason For Referral [...] (procedu re) History of eyelid surgery (situation) Tonsillectomy and adenoidectomy (procedu re) Excision of [...] Note - no; Total Treatment Time - 2:08 min;Changes in Treatment Protocol - Scalp for 30 secs each site; Skin Type - I; Treatment Number - 10; Total Body Energy - 450 mj; Location (Body Touches will Override) - full body; Total Body Time - 2:08 min; Protocol - Photochemotherapy: Mineral Oil and NBUVB; Comments on Previous Treatment - 2-3 x weekly increase by 30 mj as tolerated. Plan of Care Code Detail Instructions 720568 clobetasol 0.05 % shampoo Apply a thin film to dry scalp once daily for 7 days on, 7 days off. Allow to sit for 15 minutes, then add water, lather, and rinse thoroughly. Repeat PRN only to manage itchy rash. 3445222 triamcinolone aceton agatha 0.1 % topical cream Apply a thin layer to rash on arms, legs, chest, abdomen, back BID 2 weeks on, 1 week off. Ok to mix with topical lotion. Repeat application of steroids to rash only as needed for relief. 060832 ciclopirox 1 % shampoo Apply and later into scalp and allow to sit for 5 minutes before rinsing out. Repeat 2 -4 times per week for best results. 6785609 Dupixent 300 mg/2 mL subcutaneous pen injector Inject 1 pen subQ bi-weekly to manage atopic dermatitis 524267 ketoconazole 2 % shampoo Lather and apply to scalp as shampoo; leave in 5 min before rinsing; use 2-3 times weekly 622789 ciclopirox 1 % shampoo Apply and later into scalp and allow to sit for 5 minutes before rinsing out. Repeat 2 -4 times per week for best results. 813602 ciclopirox 1 % shampoo Apply and later into scalp and allow to sit for 5 minutes before rinsing out. Repeat 2 -4 times per week for best results. 896708 ketoconazole 2 % shampoo Apply a nd lather into scalp and allow to sit for 5 minutes before rinsing out. Repeat 2-4 times per week for best results. 1949138 Salagen (pilocarpine) 7.5 mg tab let Take one pill by mouth BID 5452996 Opzelura 1.5 % topical cream Jose C ly a thin layer to itchy skin on trunk and extremities BID to manage eczema symptoms. 0785393 Chloraseptic Throat Argillite 1.4 % aerosol Argillite to affected skin inside the mouth, swish/let sit for 15 seconds and then expectorate. May repeat every 2 hrs PRN for relief. 370108 Mouth Pain 20 % oral mucosal liq uid Argillite to affected areas within the mouth 2-4 times per day for relief. 0229297 Salagen (pilocarpine) 7.5 mg tab let Take one pill by mouth BID 872287 desonide 0.05 % topical ointment Apply a very thin layer to cracked, dry, fissured lips BID 7 days on, 7 days off to manage rash. Only repeat PRN. Do not get inside of the mouth. 048187 clobetasol 0.05 % shampoo Apply a thin film to dry scalp once daily for 7 days on, 7 days off. Allow to sit for 15 minutes, then add water, lather, and rinse thoroughly. Repeat PRN only to manage itchy rash. 092812 fluocinonide 0.05 % topical solu tion Apply a thin layer to itchy scalp BID 2 weeks on, 1 week off. Repeat PRN to manage rash. 0469816 triamcinolone aceton agatha 0.1 % topical cream Apply a thin layer to rash on arms, legs, chest, abdomen, back BID 2 weeks on, 1 week off. Ok to mix with topical lotion. Repeat application of steroids to rash only as needed for relief. 566481 ammonium lactate 12 % topical cr eam Apply a thin layer to dry skin QD - avoid face and skin folds. Instructions No Data Social History Code Activity Start Date End Date 438126168 (SNOMED) Never smoker Sex female Sexual orientation Don't Know Gender identity Unspecified Vital Signs No data
--- OUTSIDE RECORDS SUMMARY | 2025-04-10 18:27 | XMS_ITS | Clinical Summary ---
Author Organization [facility] Address [address] [place], [place] [address] Phone Care Team Providers Care Half Sole Fitter Name Role Phone Darwin Hopper MD Primary Care Provider [phone] Social History Tobacco Use Types Packs/Day Years Used Date Smoking Tobacco: Never Assessed Comments Unknown Sex and Gender Information Value Date Recorded Sex Assigned at Not on file Legal Sex Female 10:04 PM EDT Gender Identity Not on file Sexual Orientation Not on file Plan of Treatment Not on file Medical Devices Not on file Insurance [employer] SUPPLEMENT MEDICARE PART A & B Seriously CROSS MEDEX SUPPLEMENT MEDICARE PART A & B Seriously CROSS MEDEX SUPPLEMENT MEDICARE PART A & B [employer] SUPPLEMENT MEDICARE PART A & B [employer] SUPPLEMENT MEDICARE PART A & B Seriously CROSS MEDEX SUPPLEMENT MEDICARE PART A & B Care Teams Half Sole Fitter Relationship Specialty Start Date End Date Darwin Hopper MD [address] [place] [id number] PCP - General Internal Medicine 10/22/24 Additional Source Comments The information contained in this document represents components of the legal health record. It is not the complete legal health record.[facility]
--- OUTSIDE RECORDS SUMMARY | 2025-04-10 18:27 | XMS_ITS | Clinical Summary ---
Author Organization [facility] Address [address] [place] [address] Care Team Providers Care Head Inspector Name Role Phone Darwin Hopper MD Primary Care Provider [phone] Allergies Active Allergy Reactions Criticality Noted Date [...] by mouth. 0 07/30/2015 Active nystatin (MYCOSTATIN) 082541 units tablet Take by mouth. 0 07/30/2015 [...] age to complete this topic Care Teams Head Inspector Relationship Specialty Start Date End Date Po, Darwin Wasserman MD [address] [place] [address] Dr Solorzano [address] [facility] [place], [place] [id number] PCP - General Internal Medicine 08/13/19
== END 2025-04-10 15:09 | disposition home or self-care (01) ==
LOC: HO.HSM 14:43
PROVIDERS: PCP Internal Medicine; Referring Provider Internal Medicine; Visit Provider Psychiatry & Neurology Neurology
DX: G25.0 Essential tremor (principal); G44.209 Tension-type headache, unspecified, not intractable
CPT/HCPCS: 99214

== ENCOUNTER → 2025-04-10 14:42 | Outpatient (BNVA) | payer MEDICARE, SELFPAY | PROVIDERS: PCP Internal Medicine; Referring Provider Internal Medicine; Visit Provider Psychiatry & Neurology Neurology | DX: G25.0 Essential tremor (principal); G44.209 Tension-type headache, unspecified, not intractable | CPT/HCPCS: 99212 ==

== ENCOUNTER 2025-04-26 12:36 | Outpatient (REF) | payer MEDICARE, SELFPAY ==
--- NOTE | ~2025-04-26 | XR_ITS ---
EXAMINATION: XR KNEE AP AND LATERAL STANDING bilateral CLINICAL INFORMATION: M25.561 - Pain in right knee COMPARISON: Bilateral knee x-rays April 2018 TECHNIQUE: AP and lateral bilateral standing view of the knees was obtained. FINDINGS: Bone alignment is normal. No fracture or dislocation. Arthritis of the medial femoral tibial joints with joint space narrowing and osteophyte formation. This appears increased from 2018. Joint spaces otherwise normal. Small joint effusion. 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 Electronically signed by: Felicita Navarro MD 04/26/2025 02:44 PM EDT
== END 2025-04-26 12:37 | disposition home or self-care (01) ==
LOC: HO.XRAY 12:36
PROVIDERS: PCP Internal Medicine
DX: M25.561 Pain in right knee (principal); M25.562 Pain in left knee; E78.00 Pure hypercholesterolemia, unspecified; K21.9 Gastro-esophageal reflux disease without esophagitis; R60.0 Localized edema; R21 Rash and other nonspecific skin eruption; I73.9 Peripheral vascular disease, unspecified; I87.2 Venous insufficiency (chronic) (peripheral); R73.01 Impaired fasting glucose; G25.0 Essential tremor; B35.3 Tinea pedis
CPT/HCPCS: 73560; 96127; 99212

== ENCOUNTER 2025-04-26 12:36 | Outpatient (AMB) | payer MEDICARE, SELFPAY ==
--- OUTSIDE RECORDS SUMMARY | 2024-07-05 11:55 | XMS_ITS ---
Author Organization [facility] Address [address] [place] [address] Care Team Providers Care Commissioner Of Relocation Services Name Role Phone Darwin Hopper MD Primary Care Provider Zoltan Grant Jr REASON FOR VISIT IBS,gerd Encounters Encounter Location Date Provider Diagnosis [facility] [address] [facility] [address] [place] [address] 07/05/2024 Zoltan Vazquez Jr Plan Of Treatment Next Appt Details Provider Name:Zoltan turner Jr, 05/16/2025 02:15:00 PM, [address] [facility], [address], [place], [address], Progress Notes * KIKE TRANDOB:1950 (75 yo F)Acc No.[id number]:07/05/2024 Progress Notes Patient: KIKE MORALES Provider: Adeline Vazquez MD :1950 A ge:74 Y S ex:Female Date:07/05/2024 Address:[address] [place] [address] [id number] Pcp:Darwin Hopper MD Subjective: * Chief Complaints: [...] 0 07/05/2024 Generated for Miranda mariee/Tony/Rodrigo on: 01:47 PM EDT
--- OUTSIDE RECORDS SUMMARY | 2024-07-12 10:15 | XMS_ITS ---
Author Organization [facility] Address [address] [place] [address] Care Team Providers Care Sr Technical Sales Consultant Name Role Phone Darwin Hopper MD Primary Care Provider Zoltan Grant Jr [phone] REASON FOR VISIT IBS,gerd Encounters Encounter Location Date Provider Diagnosis [facility] [address] [facility] [address] [place] [address] 07/12/2024 Zoltan Vazquez Jr Plan Of Treatment Next Appt Details Provider Name:Zoltan turner Jr, 05/16/2025 02:15:00 PM, [address] [facility], [address], [place], [address], Progress Notes * IKKE TRANDOB:1950 (75 yo F)Acc No.[id number]:07/12/2024 Progress Notes Patient: KIKE MORALES Provider: Adeline Vazquez MD :1950 A ge:74 Y S ex:Female Date:07/12/2024 Address:[address] [place] [address] [id number] Pcp:Darwin Hopper MD Subjective: * Chief Complaints: [...] 07/12/2024 Generated for Miranda mariee/Tony/Rodrigo on: 1 01:47 PM EDT
--- OUTSIDE RECORDS SUMMARY | 2024-11-22 11:00 | XMS_ITS ---
Author Organization [facility] Address [address] [place] [address] Care Team Providers Care American Indian Policy Specialist Name Role Phone Darwin Hopper Primary Care Provider Unavailabl Jacki Sadler Unavailable [phone] Jose Baker [phone] Encounters Encounter Location Date [facility] [address] 11/22/2024 Jose Baker Plan Of Treatment Next Appt Details Provider Name:Jacki koenig, 05/13/2025 02:00:00 PM, [address] [place], [address], Progress Notes * DEONNicole MOLINADwainB:1950 ( 75 yo F)Acc No.[id number]:11/22/2024 Progress Note Patient: Madison MORALES Provider: Bobby Baker DPM :1950 A ge:74 Y S ex:Female Date:11/22/2024 Address:[address] [facility] [place] Pcp:Darwin Hopper Subjective: * Chief Complaints: * [...] 0 11/22/2024 Generated for Miranda mariee/Tony/Rodrigo on: 1 01:46 PM EDT
--- NOTE | 2025-04-26 12:45 | MHC.PC.OV ---
Vital Signs 04/26/25 12:51 Height 5 ft 1 in Weight 135 lb 2 oz BMI 25.5 BP 120/76 Blood Pressure Location Lt brachial Position Sitting Pulse 86 Pulse Source Pulse Oximeter Temp 97.1 F Temp Source Temporal Artery Scan Pulse Oximetry (%) 96 Oxygen Delivery Method Room Air Intake Visit Reasons: 3 month follow up E Commerce Strategist Required: No Accompanied by: Self / Same As Patient Allergies lamotrigine (From LAMICTAL) Allergy (Intermediate, Verified 04/26/25 12:52) RASH Sulfa (Sulfonamide Antibiotics) (SULFA (SULFONAMIDE ANTIBIOTICS)) Allergy (Intermediate, Verified 04/26/25 12:52) UNKNOWN, upset stomach codeine (CODEINE) Allergy (Mild, Verified 04/26/25 12:52) NAUSEA & VOMITING, nausea and vomiting penicillin V (PENICILLIN V) Allergy (Mild, Verified 04/26/25 12:52) NAUSEA & VOMITING, sick to stomach, nausea and vomiting ciprofloxacin (Cipro) Allergy (Unknown, Verified 04/26/25 12:52) sick to stomach ibuprofen (From Motrin) Adverse Reaction (Verified 04/26/25 12:52) sick to stomach, nausea and vomiting Medication List - Last Reviewed 04/26/25 by Nella Wolfe MA alendronate 70 mg PO QWEEK alprazolam 0.5 mg PO ONCE calcium carb and citrat-mag ox 200 mg calcium- 50 mg tabs PO cholecalciferol (vitamin D3) 25 mcg PO DAILY ciclopirox 1% topical clotrimazole 1% 1 appl topical BID compress.stocking,knee,reg,med As directed 20-30 mm HG cyclosporine 0.09% (Cequa) 1 drp ophthalmic (eye) Q12H duloxetine 120 mg PO DAILY furosemide (Lasix) 40 mg (2 x 20 mg) PO DAILY multivitamin 1 tab PO DAILY nystatin 6 mL PO QID omega-3 fatty acids 1,000 mg PO DAILY omeprazole 20 mg PO DAILY pyridoxine (vitamin B6) 100 mg PO DAILY 90 days roflumilast 0.15% (Zoryve) appl topical simvastatin 5 mg PO BEDTIME terbinafine HCl mg PO tobramycin-dexamethasone 0.3-0.1 % (TobraDex) ophthalmic (eye) vitamin K2 45 mcg PO DAILY Tobacco use date assessed: 04/26/25 Fall risk assessment: No Falls in past year Last assessed Fall Risk: 03/29/25 Dental Screening Dental Screen Date: 04/26/25 Did you have a dental visit in the last 12 months?: Yes Did you have a dental problem in the last 6 months where you did not have access to dental care?: No Was dental information given to patient?: Patient has dentist HPI 3 month follow up HPI Details 75-year-old female with past medical history of hypercholesterolemia, GERD, Sjogren's syndrome, osteoporosis, generalized anxiety disorder, cognitive impairment, impaired fasting glucose and peripheral vascular disease last seen 03/2025 coming in for follow up. In review of the notes, patient was seen by Neurology 04/10/2025 for tremor continued on current medications. Presenting for a follow-up visit to manage chronic bilateral lower extremity edema and other issues. The patient has persistent and significant swelling in her legs, although she notes it has improved from its worst state. An ultrasound has previously confirmed venous insufficiency, and she has been following with vascular surgery. She was previously instructed to take Lasix 40 mg for three days, but has since stopped and takes it as needed. The patient also has a history of recurrent foot problems, including a past infection that required drainage by a hospitality associate and a more recent infection that was also treated. She was recently diagnosed with a toenail fungus by a new hospitality associate, Dr. Leon, and was prescribed oral terbinafine (Lamisil) 250 mg. She is being treated by a dermatology PA for a severe, generalized pruritic rash that affects her entire body, including her scalp. After topical creams failed, she was started on twice-weekly phototherapy and Dupixent injections every two weeks. She has not yet noticed improvement from the Dupixent and is nervous about self-administering the injections. [facility] Medical History Post-nasal drip Bronchitis Numbness in feet Impacted cerumen of left ear Hoarseness Stye Hoarseness Hip pain, right Lower back pain Colon cancer screening Acute sinusitis Trigger finger of right hand Bile salt-induced diarrhea Osteoarthritis Irritable bowel syndrome GERD (gastroesophageal reflux disease) Essential tremor Hypercholesterolemia Calculus of left kidney Constipation Cholecystectomy planned Right knee meniscal tear Hepatitis Osteoporosis Umbilical hernia History of duodenal ulcer Liver hemangioma Surgical History Hx of tonsillectomy History of cholecystectomy Cataract History of knee surgery History of eyelid surgery H/O adenoidectomy History of appendectomy Family History Father Hypertension Prostate cancer Mother Hypertension Diabetes Dementia Maternal Aunt Gastric cancer Paternal Aunt Gastric cancer Ovarian cancer Paternal Uncle Myocardial infarction Social History Household Members: Spouse Housing: House Do you presently have visiting nurse or other home services: No Alcohol intake: never Patient Tobacco Use Status: Never used Tobacco Tobacco use type: Cigarette e-Cigarette/Vaping Use: Never Used Second Hand Smoke Exposure: No service: No Current occupational status: retired Cognitive needs: No Hearing needs: No Vision needs: Yes Questionnaire PHQ-9 Over the last 2 weeks, how often have you been bothered by any of the following problems? 1. Little interest or pleasure in doing things: more than half the days 2. Feeling down, depressed, or hopeless: several days 3. Trouble falling or staying asleep, or sleeping too much: not at all 4. Feeling tired or having little energy: several days 5. Poor appetite or overeating: more than half the days 6. Feeling bad about yourself - or that you are a failure or have let yourself or your family down: not at all 7. Trouble concentrating on things, such as reading the newspaper or watching television: not at all 8. Moving or speaking so slowly that other people could have noticed. Or the opposite - being so fidgety or restless that you have been moving around a lot more than usual: not at all 9. Thoughts that you would be better off or of hurting yourself in some way: not at all Total score: 6 Source: Developed by Drs. Benny Marcano, Gina Gonzalez, Obi Guajardo and colleagues, with an educational garcia from [employer]. Thrive Questionnaire Date Thrive assessed: 04/26/25 I am a: Patient What is your living situation today?: I have a steady place to live Within the past 12 months, did the food you bought not last and you didn't have the money to get more?: Never true Within the past 12 months, did you worry whether your food would run out before you got money to buy more?: Never true Do you have trouble paying for medicines?: No Do you have trouble getting transportation to medical appointments?: No Do you have trouble paying your heating and electricity bill?: No Do you have trouble taking care of your child, family member or friend?: Yes Do you have trouble with day-to-day activities such as bathing, preparing meals, shopping, managing finances, etc.?: No Are you currently unemployed and looking for a job?: No Are you interested in more education?: No Currently or been in a relationship where the following occur: No concerns reported THRIVE Score: 0 AUDIT C Alcohol Use Questionnaire (AUDIT-C) 1. How often do you have a drink containing alcohol?: Never 3. How often do you have six or more drinks on one occasion?: Never Total Score: 0 BENITA-7 AMB Questionnaire BENITA-7 Date BENITA - 7 assessed: 04/26/25 Feeling nervous, anxious, or on edge: 3 = Nearly every day Not being able to stop or control worryin = Nearly every day Worrying too much about different things: 3 = Nearly every day Trouble relaxin = Nearly every day Being so restless that it is hard to sit still: 0 = Not at all Becoming easily annoyed or irritable: 1 = Several days Feeling afraid as if something awful might happen: 0 = Not at all Total BENITA-7 score (0-4 normal; 5-9 mild; 10-14 moderate; 15-21 severe): 13 Source: Developed by Drs. Benny Marcano, Gina Gonzalez, Obi Guajardo and colleagues, with an educational garcia from [employer]. Review of Systems Const Denies body aches, Denies chills, Denies fever(s), Denies headache(s) and Denies poor appetite Eyes Reports no additional complaints ENT Denies dysphagia, Denies dizziness, Denies headache(s) and Denies odynophagia Card Denies chest pain, Denies syncope, Denies edema, Denies irregular heart rhythm, Denies lightheadedness and Denies dyspnea Resp Denies cough and Denies dyspnea GI Denies abdominal pain, Denies constipation, Denies dysphagia, Denies diarrhea, Denies nausea, Denies odynophagia and Denies vomiting Reports no additional complaints Musc Details: bilateral knee pain Denies abnormal gait Skin/Breast Reports system reviewed and no additional complaints, except as documented Neuro Denies abnormal gait, Denies dizziness, Denies syncope and Denies headache(s) Psych Reports no additional complaints Physical exam (Primary Care) Vital Signs: Last Vital Signs Temp 97.1 F 04/26/25 12:51 Pulse 86 04/26/25 12:51 BP 120/76 04/26/25 12:51 Pulse Ox 96 04/26/25 12:51 Oxygen Delivery Method Room Air 04/26/25 12:51 BMI result Body Mass Index 25.5 Tobacco/Smoking Status: Tobacco use Status Tobacco use date assessed 04/26/25 04/26/25 12:53 Patient Tobacco Use Status Never used Tobacco 04/26/25 12:45 Tobacco use type Cigarette 04/26/25 12:58 e-Cigarette/Vaping Use Never Used 04/26/25 12:45 PHQ-9: PHQ-9 Score PHQ-9: Total score 6 04/29/25 08:17 Thrive Assessment: Date of Thrive Assessment Date Thrive assessed 04/26/25 04/26/25 12:53 Currently or been in a relationship where the following occur: No concerns reported Const General: cooperative, healthy appearing, comfortable and no acute distress Orientation/consciousness: patient oriented x3 HENMT Head: Yes normocephalic Ears: hearing grossly normal bilaterally General nose exam: Normal external nose present Eyes General: appearance normal, both eyes and all related structures Conjunctivae: conjunctivae normal Neck Neck: Yes full ROM and Yes no lymphadenopathy Resp Effort & Inspection: normal respiratory effort Auscultation: clear to auscultation bilaterally, no crackles, no rales, no rhonchi and no wheezes Cardio Rate: regular rate Rhythm: regular rhythm Skin General skin exam: no rashes or lesions noted Neuro General: patient oriented x3 Gait exam (Neuro): Normal gait present Extrem Other: Mild edema of right lower extremity without redness, warmth or tenderness to palpation General: Yes normal to inspection and Yes full ROM Psych Affect: normal affect Attitude: cooperative Insight: Good insight present (Psych) Judgement: Good judgement present (Psych) Coding Level of Care Code Est Pt Level 3 (73977) Diagnoses Peripheral vascular disease I73.9 Venous insufficiency of right leg I87.2 Impaired fasting blood sugar R73.01 Gastroesophageal reflux disease without esophagitis K21.9 Esophagitis presence: without esophagitis Essential tremor G25.0 Tinea pedis B35.3 Bilateral knee pain M25.561; M25.562 Assessment & Plan Assessment & Plan (1) Peripheral vascular disease: Code(s): I73.9 - Peripheral vascular disease, unspecified Category: Medical Plan: She is currently following with vascular surgery and scheduled to undergo imaging this month with a appointment to follow with Dr. Yung. (2) Venous insufficiency of right leg: Code(s): I87.2 - Venous insufficiency (chronic) (peripheral) Category: Medical Plan: See above (3) Impaired fasting blood sugar: Code(s): R73.01 - Impaired fasting glucose Category: Medical Plan: Decrease the amount of carbohydrates such as pasta, bread, rice, and potatoes and limit the amount of sweets. Although fruits are generally healthy they should be eaten in moderation as they are still high in sugar. (4) GERD (gastroesophageal reflux disease): Code(s): K21.9 - Gastro-esophageal reflux disease without esophagitis Category: Medical Qualifiers: Esophagitis presence: without esophagitis Qualified Code(s): K21.9 - Gastro-esophageal reflux disease without esophagitis Plan: Avoid trigger foods such as citrus, tomato products, soda, caffeine, spicy foods and other foods that may be irritating to your stomach. Avoid laying flat 3-4 hours after eating and elevate the head of the bed 30 degrees to prevent acid from moving into the esophagus. (5) Essential tremor: Comment: Drug induced/ exacerbated tremor of hands. 2021 210 EEG- WNL. 2017 EEG normal. 2016 MRI brain normal. Code(s): G25.0 - Essential tremor Category: Medical Plan: Continue to follow up with Neurology at this time (6) Tinea pedis: Code(s): B35.3 - Tinea pedis Category: Medical Plan: Patient is currently following with a hospitality associate and on terbinafine (7) Bilateral knee pain: Code(s): M25.561 - Pain in right knee; M25.562 - Pain in left knee Category: Medical Plan: Patient is complaining of bilateral knee pain plan for x-ray for further evaluation. Plan This note was constructed using voice recognition software. While every effort has been made to ensure accuracy and management aide, still areas may have been included sometimes these areas may affect the content or meeting of the given symptoms. Total time spent caring for the patient today was 30 minutes. This includes time spent before the visit reviewing the chart, time spent during the visit, and time spent after the visit and documentation. Patient was informed and verbally consented to the use of an ambient scribe for clinic note documentation during this visit. Orders: Orders Lipid Panel 04/26/25 E78.00 - Pure hypercholesterolemia, unspecified Comprehensive Met. Panel 04/26/25 E83.39 - Other disorders of phosphorus metabolism, Z00.00 - Encounter for general adult medical examination without abnormal findings Hemoglobin A1c 04/26/25 R73.01 - Impaired fasting glucose XR Knee Slim 1or 2V 04/26/25 M25.561 - Pain in right knee, M25.562 - Pain in left knee TSH reflex Free T4 04/26/25 Z13.29 - Encounter for screening for other suspected endocrine disorder Vitamin B12 and Folate 04/26/25 Z13.21 - Encounter for screening for nutritional disorder Vitamin D 25-OH Total 04/26/25 Z13.21 - Encounter for screening for nutritional disorder Complete Blood Count Auto Diff 04/26/25 Z13.0 - Encounter for screening for diseases of the blood and blood-forming organs and certain disorders involving the immune mechanism
[2025-04-26 12:51] VITALS: BP 120/76; PULSE 86; TEMP 36.2; O2SAT 96; BMI 25.5
--- OUTSIDE RECORDS SUMMARY | 2025-04-26 13:47 | XMS_ITS | Patient Health Record ---
Author Organization [facility] Address [address] [place] [address] Care Team Providers Care Cafeteria Director Name Role Phone Darwin Hopper MD Primary [...] Multi Vitamin/Minerals - 1 Orally QD Active Corrales 3 1000 MG 1 AND half capsule [...] Risk Notes Problem Left lower quadrant pain (437956003) Left lower quadrant pain (R10.32) Active confirmed Problem Functional diarrhea (96686276) Functional diarrhea (K59.1) Active confirmed Problem Backache (925903287) Dorsalgia, unspecified (M54.9) Active confirmed Problem Elevated liver enzymes level (977965824) Elevated LFTs (R79.89) Active confirmed Problem Gastroesophageal reflux disease without esophagitis (642427893) Gastroesophageal reflux disease without esophagitis (K21.9) Active confirmed Problem Dysphagia (87707850) Dysphagia, unspecified type (R13.10) Active confirmed Problem Left lower quadrant pain (167696945) Abdominal pain, LLQ (R10.32) Active confirmed Problem Irritable bowel syndrome characterized by constipation (124205346) Irritable bowel syndrome with constipation (K58.1) Active confirmed Problem Family history of polyp of colon (922410789) FH: colon polyps (Z83.71) Active confirmed Problem Left lower quadrant pain (511681791) LLQ pain (R10.32) Active confirmed Vital Signs Temperature 98.6 degrees Fahrenheit 10/22/2024 Blood pressure diastolic 01 mm Hg 10/22/2024 Height 61 in 10/22/2024 Blood pressure systolic 001 mm Hg 10/22/2024 Weight 131.6 lbs 10/22/2024 BMI 24.86 kg/m2 10/22/2024 Encounters Encounter Location Date Provider Diagnosis [facility] [address] [place] [phone] 10/22/2024 Zoltan Vazquez Jr Gastroesophageal reflux disease without esophagitis K21.9 and Irritable bowel syndrome with constipation K58.1 [facility] [address] [place] [phone] 07/11/2024 Zoltan Vazquez Jr Assessments Encounter Date [...] Provider Name:Zoltan turner , 05/16/2025 02:15:00 PM, [address] [place] [address], [address], [place], [address], Insurance Providers Payer Name Payer Address Payer Phone Subscriber Number Group Number Insured Name Patient Relationship to Insured Coverage Start Date Coverage End Date MEDICARE OF [place] [address] [place] [id number] HOLLY TRANA Self - patient is the insured [employer] ATTN CLAIMS [address] [place] [address] [id number] HOLLY TRANA Self - patient is the [...]
--- OUTSIDE RECORDS SUMMARY | 2025-04-26 13:47 | XMS_ITS | Patient Health Record ---
Author Organization [facility] Address [address] [facility] [place] [address] Care Team Providers Care Blade Boner Name Role Phone Darwin Hopper Primary Care Provider Jacki Christianson Unavailable [phone] Jose Baker Unavailable [phone] Allergies Allergen (clinical drug ingredient) Drug/Non Drug [...] Active Cymbalta Active Fosamax Active Multivitamin Active Wellman 3 Active Omeprazole 20 MG 1 capsule [...] Status Risk Notes Problem Acquired hallux valgus (70039804) Hallux valgus (acquired), right foot (M20.11) Active confirmed Problem Bilateral atherosclerosis of arteries of lower limbs (disorder) (80758669093276754 ) Atherosclerosis of elem artery of both lower extremities, with unspecified [...] Ordered Date Performed Result Body Sit e 76797-DNJYJDU NAIL, 6 OR MORE 06/04/2024 N/A 13487-YPCY SKIN LESIONS, 2 TO 4 06/04/2024 N/A 82755-NKQAPOP NAIL, 6 OR MORE 08/30/2024 N/A 12801 I&D ABSCESS- SIMPLE,SINGLE 08/30/2024 N/A 08714-PSSS SKIN LESIONS, 2 TO 4 08/30/2024 N/A 73535-TCFWYYQ NAIL, 6 OR MORE 11/29/2024 N/A 30090-GAVF SKIN LESIONS, 2 TO 4 11/29/2024 N/A 71645-AQRHCLC NAIL, 6 OR MORE 02/28/2025 N/A 77871-TFNU SKIN LESIONS, 2 TO 4 02/28/2025 N/A 50224-Inwfjtdx Plate 04/09/2025 N/A Encounters Encounter Location Date Provider Diagnosis [address] [address] 06/04/2024 Jose Samuel Atherosclerosis of elem artery of both lower extremities, with unspecified presence of clinical manifestation I70.203 ; Tinea unguium B35.1 ; Pain in right toe(s) M79.674 ; Pain in left toe(s) M79.675 and Xerosis of skin L85.[address] [address] 08/30/2024 Jose Samuel Atherosclerosis of elem artery of both lower extremities, with unspecified presence of clinical manifestation I70.203 ; Tinea unguium B35.1 ; Pain in right toe(s) M79.674 ; Pain in left toe(s) M79.675 and Abscess of toe, right L02.[address] [address] 11/29/2024 Jose Samuel Atherosclerosis of elem artery of both lower extremities, with unspecified presence of clinical manifestation I70.203 ; Tinea unguium B35.1 ; Pain in right toe(s) M79.674 and Pain in left toe(s) M79.[address] [address] 02/28/2025 Jose Samuel Atherosclerosis of elem artery of both lower extremities, with unspecified presence of clinical manifestation I70.203 ; Tinea unguium B35.1 ; Pain in right toe(s) M79.674 and Pain in left toe(s) M79.675 [facility] [address] [address] 03/08/2025 Jacki Leon Pain in right toe(s) M79.674 ; Onychomycosis B35.1 and Pain in left toe(s) M79.675 [facility] [address] [address] 04/09/2025 Jackiisabella Leon Ingrown nail L60.[address] [address] 08/27/2024 Joselydia Baker [facility] [address] [place] [phone] 03/07/2025 Joselydia Baker [facility] [address] [place] [phone] 03/08/2025 Jacki Leon [address] [address] 04/03/2025 Jacki Leon Assessments Encounter Date Diagnosis (ICD Code) Assessment Notes Treatment Notes Treatment Clinical Notes Section Notes 06/04/2024 Tinea unguium (ICD-10 - B35.1) 06/04/2024 Atherosclerosis of elem artery of both lower extremities, with unspecified presence of clinical manifestation (ICD-10 - I70.203) 08/30/2024 Tinea unguium (ICD-10 - B35.1) 08/30/2024 Atherosclerosis of elem artery of both lower extremities, with unspecified presence of clinical manifestation (ICD-10 - I70.203) Q7(A), Q8(2B), Q9(1B,2C) 11/29/2024 Tinea unguium (ICD-10 - B35.1) 11/29/2024 Atherosclerosis of elem artery of both lower extremities, with unspecified presence of clinical manifestation (ICD-10 - I70.203) Q7(A), Q8(2B), Q9(1B,2C) 02/28/2025 Tinea unguium (ICD-10 - B35.1) 02/28/2025 Atherosclerosis of elem artery of both lower extremities, with unspecified [...] Order Date *Liver Function Test (LFT) 03/08/2025 92708-WOYNDWG NAIL, 6 OR MORE 11/29/2024 54491-UFCMXOA NAIL, 6 OR MORE 02/28/2025 33962-LGAZAAM NAIL, 6 OR MORE 12/07/2023 45160-NUVCVVV NAIL, 6 OR MORE 03/08/2024 53544-LHPJLJO NAIL, 6 OR MORE 06/04/2024 28317-BZSKMYR NAIL, 6 OR MORE 08/30/2024 65791-Pstfxfoe Plate 03/08/2024 96743-Fsovjibv Plate 04/09/2025 97137 I&D ABSCESS- SIMPLE,SINGLE 025 68944-EVTX SKIN LESIONS, 2 TO 4 02/29/20 25 13509-FSHF SKIN LESIONS, 2 TO 4 11/30/19 25 65387-ROMA SKIN LESIONS, 2 TO 4 03/08/20 24 31766-GIAU SKIN LESIONS, 2 TO 4 12/07/19 24 88568-XYEL SKIN LESIONS, 2 TO 4 08/31/19 25 59421-XJYQ SKIN LESIONS, 2 TO 4 06/04/20 24 Next Appt Details Provider Name:Jacki Soto arya, 05/13/2025 02:00:00 PM, [address] [place], [address], Insurance Providers Payer Name Payer Address Payer Phone Subscriber Number Group Number Insured Name Patient Relationship to Insured Coverage Start Date Coverage End Date Medicare National [facility] [address] [place] [address] [id number] Madison Navarro Self - patient is the insured [facility] [address] [place] [address] [phone] [id number] Madison Navarro Self - patient is the [...]
--- OUTSIDE RECORDS SUMMARY | 2025-04-26 13:47 | XMS_ITS | Clinical Summary ---
Author Organization [facility] Address [address] [place] [address] Phone Care Team Providers Care Construction Stonemason Name Role Phone Darwin Hopper MD Primary Care Provider [phone] Surgical History Surgery Date Site/Laterality Comments ADENOIDECTOMY [...] Done Comments Cholesterol Screening (Lipid Panel) 06/04/2022 Falls Risk [...] year. Mammo Location: [facility], [address] [place] [address], [address], . -------- FINAL REPORT -------- Dictated By: Geneva Coronel Dictated Date: 09/13/2024 15:07 ET Assigned Physician: Geneva Coronel Reviewed and Electronically Signed By: Geneva Coronel Signed Date: 09/13/2024 15:09 ET Workstation ID: [id number] Transcribed By: Self Edit Transcribed Date: 09/13/2024 [...] year. Mammo Location: [facility], [address] [place] [address], [address], . -------- FINAL REPORT -------- Dictated By: Geneva Coronel Dictated Date: 09/13/2024 15:07 ET Assigned Physician: Geneva Coronel Reviewed and Electronically Signed By: Geneva Coronel Signed Date: 09/13/2024 15:09 ET Workstation ID: [id number] Transcribed By: Self Edit Transcribed Date: 09/13/2024 15:07 ET us Self Referral Sppl IMG BI PROCEDURES Final Resul t * JAIME DEXA AXIAL SKELETON (07/18/2023 3:48 PM EST) Anatomical Region Laterality Modality Mammography 07/18/2023 2:51 PM EST Narrative 07/18/2023 3:48 PM EST [facility] Diagnostic Imaging Department [address] [place] [address] [id number] Patient: DEONJESSEKIKEO.B./Age/Sex: 1950 - 73 - F Unit#: [id number] [facility] Ordering Physician: ANALILIA OWENS MD [facility] Dexa Axial Skeleton - 07/18/23 - 1525 Report Status:Signed History: Low estrogen state due to menopause. Personal history of fracture. Height loss. Comparison: 06/02/21 Findings: Bone densitometry is performed utilizing dual energy x-ray absorptiometry (DXA) in the [employer] unit. The lumbar spine and proximal [...] 25.9 percent Hip 8.1 percent. IMPRESSION: Osteoporosis. [id number] Dictating Physician: BAILEY NIETO MD Electronically Signed by: BAILEY NIETO MD Dic Date/Time: 07/18/23 1547 Sign date/Time: 07/18/23 1548 Procedure Note Bailey Nieto MD - 02/13/2024 [facility] Diagnostic Imaging Department [address] [place] [address] Patient: KIKE NAVARRO Bee ChaconB./Age/Sex: 1950 - 73 - F Unit#: [id number] Location/Status: [facility]/REG CLI Mnemonic[facility] Ordering Physician: ANALILIA OWENS MD Jaime Dexa Axial Skeleton - 07/18/23 - 1525 Report Status:Signed History: Low estrogen state due to menopause. Personal history offracture. Height loss. Comparison: 06/02/21 Findings: Bone densitometry is performed utilizing dual energy x-ray absorptiometry(DXA) in the [employer] unit. The lumbar spine and proximal [...] 25.9 percent Hip 8.1 percent. IMPRESSION: Osteoporosis. 11622 Dictating Physician: BAILEY NIETO MD Electronically Signed by: BAILEY NIETO MD Dic Date/Time: 07/18/23 1547 Sign date/Time: 07/18/23 1548 Analilia Owens MD IMG BI PROCEDURES Final Re sult from Last 3 Months or Most Recently Relevant to Health Maintenance Insurance MEDICARE Care Teams Construction Stonemason Relationship Specialty Start Date End Date Darwin Hopper MD [address] [place] [address] [address] [facility] [place] [address] PCP - General Internal Medicine 08/13/19
--- OUTSIDE RECORDS SUMMARY | 2025-04-26 13:47 | XMS_ITS | Patient Health Record ---
Author Organization [facility] Address [address] [place] [address] Care Team Providers Care Jumpbasting Machine Operator Name Role Phone CARROLL SHANNON M.D. Primary Care Provider Analilia Manning Unavailable [phone] Allergies Allergen (clinical drug ingredient) Drug/Non Drug [...] even ing Orally Once a day Active Mary Alice 3 1000 MG 1 capsule Orally Onc [...] Status Risk Notes Problem Gynecological examination abnormal (388914726615050) Encounter for gynecological examination (general) (routine) with abnormal findings (Z01.411) Active confirmed Problem Postmenopausal atrophic vaginitis (88913987) Postmenopausal atrophic vaginitis (N95.2) Active confirmed Problem Age-related osteoporosis (133731108) Age-related osteoporosis without current pathological fracture (M81.0) Active confirmed Problem Urinary incontinence (930022243) Unspecified urinary incontinence (R32) Active confirmed Problem Constipation (00639089) Constipation, unspecified (K59.00) Active confirmed Problem Anxiety state (320290800) Anxiety state, unspecified (300.00) Active confirmed Major Problem Depressive disorder (09133708) Depressive disorder, not elsewhere classified (311) Active confirmed Major Problem Dyspareunia (28091336) Dyspareunia (625.0) Active confirmed Diag Problem Female stress incontinence (03608952) Female stress incontinence (625.6) Active confirmed Major Problem Menopausal symptom (16755148) Symptomatic menopausal or female climacteric states (627.2) Active confirmed Major Problem Postmenopausal atrophic vaginitis (20835532) Postmenopausal atrophic vaginitis (627.3) Active confirmed Diag Problem Osteoporosis (01978908) Unspecified osteoporosis (733.00) Active confirmed Problem Gynecological examination normal (998972892373499) Routine gynecological examination (V72.31) Active confirmed Major Problem Screening for malignant neoplasm of colon (147569803) Special screening for malignant neoplasms, colon (V76.51) Active confirmed Major Vital Signs Temperature 97.4 degrees Fahrenheit 06/28/2024 Blood pressure diastolic 74 mm Hg 06/28/2024 Height 60.8 in 06/28/2024 Blood pressure systolic 108 mm Hg 06/28/2024 Weight 140 lbs 06/28/2024 BMI 26.62 kg/m2 06/28/2024 Encounters Encounter Location Date Provider Diagnosis [facility] [employer] [address] [place] [address] 06/28/2024 Analilia Galvan Encounter for gynecological examination [...] chelitavalerierachael, 07/05/2025 03:00:00 PM, [address], [address], [place], [address], Insurance Providers Payer Name Payer Address Payer Phone Subscriber Number Group Number Insured Name Patient Relationship to Insured Coverage Start Date Coverage End Date MEDICARE [address] [place] [id number] DEONHOLLY MOLINAA Self - patient is the insured MEDEX [address] [place] [address] [phone] [id number] HOLLY TRANA Self - patient is [...]
--- OUTSIDE RECORDS SUMMARY | 2025-04-26 13:47 | XMS_ITS | Clinical Summary ---
Author Organization [facility] Address [address] [place] [address] Care Team Providers Care Corporate Compliance Officer Name Role Phone Darwin Hopper MD Primary Care Provider [phone] Allergies Active Allergy Reactions Criticality Noted Date [...] by mouth. 0 07/30/2015 Active nystatin (MYCOSTATIN) 310247 units tablet Take by mouth. 0 07/30/2015 [...] age to complete this topic Care Teams Corporate Compliance Officer Relationship Specialty Start Date End Date Po, Darwin Wasserman MD [address] [place] [address] [address] [facility] [place], [place] [id number] PCP - General Internal Medicine 08/13/19
--- OUTSIDE RECORDS SUMMARY | 2025-04-26 13:48 | XMS_ITS | Clinical Summary ---
Author Organization [facility] Address [address] [place], [place] [address] Phone Care Team Providers Care Crane Helper Name Role Phone Darwin Hopper MD Primary Care Provider [phone] Social History Tobacco Use Types Packs/Day Years Used Date Smoking Tobacco: Never Assessed Comments Unknown Sex and Gender Information Value Date Recorded Sex Assigned at Not on file Legal Sex Female 10:04 PM EDT Gender Identity Not on file Sexual Orientation Not on file Plan of Treatment Not on file Medical Devices Not on file Insurance [employer] MEDEX SUPPLEMENT MEDICARE PART A & B [employer] CROSS MEDEX SUPPLEMENT MEDICARE PART A & B [employer] CROSS MEDEX SUPPLEMENT MEDICARE PART A & B [employer] MEDEX SUPPLEMENT MEDICARE PART A & B [employer] MEDEX SUPPLEMENT MEDICARE PART A & B [employer] CROSS MEDEX SUPPLEMENT MEDICARE PART A & B Care Teams Crane Helper Relationship Specialty Start Date End Date Darwin Hopper MD [address] [place] [phone] PCP - General Internal Medicine 10/22/24 Additional Source Comments The information contained in this document represents components of the legal health record. It is not the complete legal health record.[facility]
== END 2025-04-26 13:55 | disposition home or self-care (01) ==
PROVIDERS: PCP Internal Medicine
DX: I73.9 Peripheral vascular disease, unspecified (principal); I87.2 Venous insufficiency (chronic) (peripheral); R73.01 Impaired fasting glucose; K21.9 Gastro-esophageal reflux disease without esophagitis; G25.0 Essential tremor; B35.3 Tinea pedis; M25.561 Pain in right knee; M25.562 Pain in left knee

== ENCOUNTER → 2025-04-26 14:24 | Outpatient (BNV) | payer MEDICARE, SELFPAY | PROVIDERS: PCP Internal Medicine; Visit Provider Radiology Diagnostic Radiology | DX: M25.561 Pain in right knee (principal) | CPT/HCPCS: 73560 ==

== ENCOUNTER 2025-04-29 14:13 | Outpatient (REF) | payer MEDICARE, SELFPAY ==
--- NOTE | ~2025-04-29 | US_ITS ---
EXAMINATION: US KIDNEY BILATERAL HISTORY: N20.0 - Calculus of kidney TECHNIQUE: Real-time grayscale ultrasound imaging of the kidneys was performed and images were reviewed. COMPARISON: Comparison is made with the prior examination dated 04/30/2024. FINDINGS: Right kidney: The right kidney measures 7.8 x 3.9 x 4.5 cm. Renal parenchymal echotexture and thickness are normal. There are no masses. There are multiple tiny nonshadowing echogenic foci which may represent calcified vessels. No definite calculi. There is no hydronephrosis. Left Kidney: The left kidney measures 7.5 x 4.4 x 4.4 cm. Renal parenchymal echotexture and thickness are normal. There are no masses. There is a nonobstructing calculi at the upper pole measuring 2 and 3 mm. Additional tiny nonshadowing echogenic foci may represent calcified vessels. There is the suggestion of a dilated upper pole calyx without significant change dating back to 04/28/2023. US/US renal BI IMPRESSION: Left nephrolithiasis as described. Possible dilated left upper pole calyx without change. Electronically signed by: Benny Feldman MD 04/29/2025 02:48 PM [facility]
== END 2025-04-29 14:14 | disposition home or self-care (01) ==
LOC: HO.HMGCX 14:13
PROVIDERS: PCP Internal Medicine; Visit Provider Urology
DX: N20.0 Calculus of kidney (principal)
CPT/HCPCS: 76775

== ENCOUNTER → 2025-04-29 14:15 | Outpatient (BNV) | payer MEDICARE, SELFPAY | PROVIDERS: PCP Internal Medicine; Visit Provider Radiology Diagnostic Radiology | DX: N20.0 Calculus of kidney (principal) | CPT/HCPCS: 76775 ==

== ENCOUNTER 2025-05-03 14:08 | Outpatient (REF) | payer MEDICARE, SELFPAY ==
--- NOTE | ~2025-05-03 | US_ITS ---
EXAMINATION: US NONINVASIVE ASSESSMENT OF THE BILATERAL LOWER EXTREMITY WITH ARTERIAL DUPLEX AND ANKLE BRACHIAL INDICES (ABIS) CLINICAL INFORMATION: Peripheral vascular disease unspecified COMPARISON: None available. TECHNIQUE: Duplex Doppler techniques with waveform analysis and measurement of velocities in the common femoral, profunda femoris, superficial femoral, popliteal and tibial arteries were performed. In addition, ankle pulse volume recordings, ankle pressure measurements and ankle brachial indices were obtained of the bilateral lower extremity arterial system. The study was performed only at rest. FINDINGS: NONINVASIVE ASSESSMENT OF THE ARTERIES OF BILATERAL LOWER EXTREMITIES WITH ABIs: RIGHT LEG: Ankle-brachial index: 1.04 Ankle PVR: Normal LEFT LEG: Ankle-brachial index: 1.09 Left ankle PVR: Slightly decreased amplitude compared to the left, otherwise normal. DARIELA Reference: 0.9 - 1.4 = normal - no significant arterial disease 0.7 - 0.89 = mild peripheral arterial disease 0.51 - 0.69 = moderate peripheral arterial disease 0.50 = severe peripheral arterial disease RIGHT LOWER EXTREMITY DUPLEX ULTRASOUND: Common femoral artery: 113 cm/s. Diastolic flow reversal: Yes Profunda femoris artery: 70 cm/s. Diastolic flow reversal: Yes Superficial femoral artery (proximal): 95 cm/s. Diastolic flow reversal: Yes Superficial femoral artery (mid): 118 cm/s. Diastolic flow reversal: Yes Superficial femoral artery (distal): 95 cm/s. Diastolic flow reversal: Yes Popliteal artery: 108 cm/s Diastolic flow reversal: Yes Posterior tibial artery: 72 cm/s Diastolic flow reversal: Yes LEFT LOWER EXTREMITY DUPLEX ULTRASOUND: Common femoral artery: 100 cm/s. Diastolic flow reversal: Yes Profunda femoris artery: 78 cm/s. Diastolic flow reversal: Yes Superficial femoral artery (proximal): 91 cm/s. Diastolic flow reversal: Yes Superficial femoral artery (mid): 117 cm/s. Diastolic flow reversal: Yes Superficial femoral artery (distal): 112 cm/s. Diastolic flow reversal: Yes Popliteal artery: 100 cm/s Diastolic flow reversal: Yes Posterior tibial artery: 77 cm/s Diastolic flow reversal: Yes Left Welch's cyst measuring 2.9 x 1.2 x 2.2 cm. US/US arterial duplex BI w/ DARIELA IMPRESSION: ABIs are normal bilaterally. No evidence of atherosclerotic disease. Normal duplex evaluation with normal peak systolic velocities, triphasic flow and no visible luminal narrowing or stenosis. Small left Welch's cyst. Electronically signed by: Felicita Navarro MD 05/03/2025 03:49 PM EST
--- OUTSIDE RECORDS SUMMARY | 2025-05-03 15:56 | XMS_ITS | Clinical Summary ---
Author Organization [facility] Address [address] [place] [address] Phone Care Team Providers Care Chief Compressor Station Engineer Name Role Phone Darwin Hopper MD [...] Mammo Location: [facility], [address] [place] [address], [address], . -------- FINAL REPORT -------- Dictated By: Geneva Coronel Dictated Date: 09/13/2024 15:07 ET Assigned Physician: Geneva Coronel Reviewed and Electronically Signed By: Geneva Coronel Signed Date: 09/13/2024 15:09 ET Workstation ID: [id number] Transcribed By: Self Edit Transcribed Date: 09/13/2024 [...] Mammo Location: [facility], [address] [place] [address], [address], . -------- FINAL REPORT -------- Dictated By: Geneva Coronel Dictated Date: 09/13/2024 15:07 ET Assigned Physician: Geneva Coronel Reviewed and Electronically Signed By: Geneva Coronel Signed Date: 09/13/2024 15:09 ET Workstation ID: [id number] Transcribed By: Self Edit Transcribed Date: 09/13/2024 15:07 ET us Self Referral Sppl IMG BI PROCEDURES Final Resul t * JAIME DEXA AXIAL SKELETON (07/18/2023 3:48 PM EST) Anatomical Region Laterality Modality Mammography 07/18/2023 2:51 PM EST Narrative 07/18/2023 3:48 PM EST [facility] Diagnostic Imaging Department [address] [place] [address] [id number] Patient: DEONJESSEKIKEO.B./Age/Sex: 1950 - 73 - F Unit#: [id number] [facility] Ordering Physician: ANALILIA OWENS MD [facility] Dexa Axial Skeleton - 07/18/23 - 1525 Report Status:Signed History: Low estrogen state due to menopause. Personal history of fracture. Height loss. Comparison: 06/02/21 Findings: Bone densitometry is performed utilizing dual energy x-ray absorptiometry (DXA) in the [employer] unit. The lumbar spine and proximal femora [...] 25.9 percent Hip 8.1 percent. IMPRESSION: Osteoporosis. 12840 Dictating Physician: BAILEY NIETO MD Electronically Signed by: BAILEY NIETO MD Dic Date/Time: 07/18/23 1547 Sign date/Time: 07/18/23 1548 Procedure Note Bailey Nieto MD - 02/13/2024 [facility] Diagnostic Imaging Department [address] [place] [address] Patient: KIKE NAVARRO Bee ChaconB./Age/Sex: 1950 - 73 - F Unit#: [id number] Location/Status: [facility]/REG CLI Mnemonic[facility] Ordering Physician: ANALILIA OWENS MD Jaime Dexa Axial Skeleton - 07/18/23 - 1525 Report Status:Signed History: Low estrogen state due to menopause. Personal history offracture. Height loss. Comparison: 06/02/21 Findings: Bone densitometry is performed utilizing dual energy x-ray absorptiometry(DXA) in the [employer] unit. The lumbar spine and proximal femora [...] 25.9 percent Hip 8.1 percent. IMPRESSION: Osteoporosis. 26283 Dictating Physician: BAILEY NIETO MD Electronically Signed by: BAILEY NIETO MD Dic Date/Time: 07/18/23 1547 Sign date/Time: 07/18/23 1548 Analilia Owens MD IMG BI PROCEDURES Final Re sult from Last 3 Months or Most Recently Relevant to Health Maintenance Insurance MEDICARE Care Teams Chief Compressor Station Engineer Relationship Specialty Start Date End Date Darwin Hopper MD [address] [place] [address] [address] [facility] [place] [address] PCP - General Internal Medicine 08/13/19
--- OUTSIDE RECORDS SUMMARY | 2025-05-03 15:56 | XMS_ITS | Clinical Summary ---
Author Organization [facility] Address [address] [place] [address] Care Team Providers Care Managing Member Name Role Phone Darwin Hopper MD Primary Care Provider [phone] Allergies Active Allergy Reactions Criticality Noted Date [...] by mouth. 0 07/30/2015 Active nystatin (MYCOSTATIN) 266632 units tablet Take by mouth. 0 07/30/2015 [...] Tdap / Td (1 - Tdap) 1968 Shingrix-Zoster Vaccine (1 of 2) 1999 Fall [...] age to complete this topic Care Teams Managing Member Relationship Specialty Start Date End Date Po, Darwin Wasserman MD [address] [place] [address] [address] [facility] [place], [place] [phone] PCP - General Internal Medicine 08/13/19
--- OUTSIDE RECORDS SUMMARY | 2025-05-03 15:56 | XMS_ITS | Clinical Summary ---
Author Organization [facility] Address [address] [place] [address] Phone Care Team Providers Care Personal Computer Network Analyst Name Role Phone Darwin Hopper MD Primary Care Provider [phone] Social History Tobacco Use Types Packs/Day Years Used Date Smoking Tobacco: Never Assessed Comments Unknown Sex and Gender Information Value Date Recorded Sex Assigned at Not on file Legal Sex Female 10:04 PM EDT Gender Identity Not on file Sexual Orientation Not on file Plan of Treatment Not on file Medical Devices Not on file Insurance [employer] MEDEX SUPPLEMENT MEDICARE PART A & B [employer] CROSS MEDEX SUPPLEMENT MEDICARE PART A & B [employer]OSS MEDEX SUPPLEMENT MEDICARE PART A & B [employer] MEDEX SUPPLEMENT MEDICARE PART A & B [employer] MEDEX SUPPLEMENT MEDICARE PART A & B [employer] SUPPLEMENT MEDICARE PART A & B Care Teams Personal Computer Network Analyst Relationship Specialty Start Date End Date Darwin Hopper MD [address] [place] [phone] PCP - General Internal Medicine 10/22/24 Additional Source Comments The information contained in this document represents components of the legal health record. It is not the complete legal health record.[facility]
== END 2025-05-03 14:09 | disposition home or self-care (01) ==
LOC: HO.US 14:08
PROVIDERS: PCP Internal Medicine; Visit Provider Surgery Vascular Surgery
DX: I73.9 Peripheral vascular disease, unspecified (principal)
CPT/HCPCS: 93922; 93925

== ENCOUNTER → 2025-05-03 14:10 | Outpatient (BNV) | payer MEDICARE, SELFPAY | PROVIDERS: PCP Internal Medicine; Visit Provider Radiology Diagnostic Radiology | DX: I73.9 Peripheral vascular disease, unspecified (principal) | CPT/HCPCS: 93922; 93925 ==

== ENCOUNTER 2025-05-08 15:22 | Outpatient (AMB) | payer MEDICARE, SELFPAY ==
--- OUTSIDE RECORDS SUMMARY | 2024-07-05 10:55 | XMS_ITS ---
Author Organization [facility] Address [address] [place] [address] Care Team Providers Care Access Lead Name Role Phone Darwin Hopper MD Primary Care Provider Zoltan Grant Jr REASON FOR VISIT IBS,gerd Encounters Encounter Location Date Provider Diagnosis [facility] [address] [place] [address] 07/05/2024 Zoltan Vazquez Jr Plan Of Treatment Next Appt Details Provider Name:Zoltan turner Jr, 05/16/2025 02:15:00 PM, [address], [address], [place], [address], Progress Notes * KIKE TRANDOB:1950 (75 yo F)Acc No.[id number]:07/05/2024 Progress Notes Patient: KIKE MORALES Provider: Adeline Vazquez MD :1950 A ge:74 Y S ex:Female Date:07/05/2024 Address:[address] [place] [address] [id number] Pcp:Darwin Hopper MD Subjective: * Chief Complaints: * 1 . IBS,gerd. * Medical History: Objective: * Vitals: Assessment: Plan: * Treatment: * * The named appointment provid er may or may not be the originator of this progress note, and it is not deemed complete until electronically signed by the appointment provider. Sign off status: Pending * Provider: Adeline Vazquez MD Date: 0 07/05/2024 Generated for Miranda mariee/Tony/Rodrigo on: 07/08/2024 06:35 PM EST
--- OUTSIDE RECORDS SUMMARY | 2024-07-12 09:15 | XMS_ITS ---
Author Organization [facility] Address [address] [place] [address] Care Team Providers Care Company Accountant Name Role Phone Darwin Hopper MD Primary Care Provider Zoltan Grant Jr [phone] REASON FOR VISIT IBS,gerd Encounters Encounter Location Date Provider Diagnosis [facility] [address] [facility] [address] [place] [address] 07/12/2024 Zoltan Vazquez Jr Plan Of Treatment Next Appt Details Provider Name:Zoltan turner Jr, 05/16/2025 02:15:00 PM, [address] [facility], [address], [place], [address], Progress Notes * KIKE TRANDOB:1950 (75 yo F)Acc No.[id number]:07/12/2024 Progress Notes Patient: KIKE MORALES Provider: Adeline Vazquez MD :1950 A ge:74 Y S ex:Female Date:07/12/2024 Address:[address] [place] [address] [id number] Pcp:Darwin Hopper MD Subjective: * Chief Complaints: * 1 . IBS,gerd. * Medical History: Objective: * Vitals: Assessment: Plan: * Treatment: * * The named appointment provid er may or may not be the originator of this progress note, and it is not deemed complete until electronically signed by the appointment provider. Sign off status: Pending * Provider: Adeline Vazquez MD Date: 0 07/12/2024 Generated for Miranda mariee/Tony/Rodrigo on: 1 07/08/2024 06:35 PM EST
--- OUTSIDE RECORDS SUMMARY | 2024-11-22 10:00 | XMS_ITS ---
Author Organization [facility] Address [address] [place] [address] Care Team Providers Care Social Insurance Specialist Name Role Phone Darwin Hopper Primary Care Provider Unavailabl Jacki Sadler Unavailable [phone] Jose Baker [phone] Encounters Encounter Location Date [facility] [address] 11/22/2024 Jose Baker Plan Of Treatment Next Appt Details Provider Name:Jacki koenig, 05/13/2025 02:00:00 PM, [address] [place], [address], Progress Notes * DEONNicole MOLINADwainB:1950 ( 75 yo F)Acc No.[id number]:11/22/2024 Progress Note Patient: Madison MORALES Provider: Bobby Baker DPM :1950 A ge:74 Y S ex:Female Date:11/22/2024 Address[address] [facility] [place] Pcp:Darwin Hopper Subjective: * Chief Complaints: * * Medical History: Objective: * Vitals: Assessment: Plan: * Treatment: * Images: * The named appointment provid er may or may not be the originator of this progress note, and it is not deemed complete until electronically signed by the appointment provider. Sign off status: Pending * Provider: Bobby Baker DPM Date: 0 11/22/2024 Generated for Miranda mariee/Josh on: 1 07/08/2024 06:34 PM EST
--- NOTE | 2025-05-08 15:22 | MHC.OFFVIS ---
Intake Visit Reasons: 1YR US follow up Intake Note: Patient is present for 1Y Ultrasound Urology Med: Vitamin B6 Antibiotic Allergy: Sulfa,Cipro Blood Thinner: None Renal US 04/29/2025 Programmer Analyst Consultant Required: No Accompanied by: Self / Same As Patient Allergies lamotrigine (From LAMICTAL) Allergy (Intermediate, Verified 05/08/25 15:32) RASH Sulfa (Sulfonamide Antibiotics) (SULFA (SULFONAMIDE ANTIBIOTICS)) Allergy (Intermediate, Verified 05/08/25 15:32) UNKNOWN, upset stomach codeine (CODEINE) Allergy (Mild, Verified 05/08/25 15:32) NAUSEA & VOMITING, nausea and vomiting penicillin V (PENICILLIN V) Allergy (Mild, Verified 05/08/25 15:32) NAUSEA & VOMITING, sick to stomach, nausea and vomiting ciprofloxacin (Cipro) Allergy (Unknown, Verified 05/08/25 15:32) sick to stomach ibuprofen (From Motrin) Adverse Reaction (Verified 05/08/25 15:32) sick to stomach, nausea and vomiting HPI Comments Details: Madison is a very pleasant female. She is a patient of Dr. Hopper. She is seen for following urologic conditions - nephrolithiasis One year follow-up Discussed imaging Continue vitamin B6 Continue fluid intake P.r.n. follow-up Nephrolithiasis/Urolithiasis:? Discussed current findings 12 month follow-up ? They are here for further evaluation of nephrolithiasis, ? - Minimal symptoms since her last visit. Main issue is constipation. Discussion today repeat milk of magnesia, dried fruit.. ? Urolithiasis was diagnosed unsure how long. ? The patient previously had kidney stones whose composition w unknown. ? Laboratory investigations include no recent labs - reports calcium checked with Dr Winter 06/11 and is normal. ? 24 Hour urine evaluation Baseline 07/13 ? , Low Urine volume < 2.0 liters, Low calcium < 200, Low Oxalate < 30. ? Prior treatment(s) include observation. ? Prior imaging includes October 2015 , a CT (computed tomography) scan of the abdomen/pelvis (stone protocol), showing radiodense stone(s), , on the left 1mm ? Jun 2016 , a renal ultrasound - small stones on left < 2mm ? 8/18 , a renal ultrasound, showing no evidence of stones. - 04/15 renal ultrasound, left several 2-3 mm nonobstructing stones, 5 mm angiomyolipoma left upper pole - 04/16 renal ultrasound left 2.3 mm stone, other stones no longer present. 5 mm angiomyolipoma still present - 04/17 renal ultrasound with several small stones on left, right normal - 04/18 renal ultrasound small stones left stable - 04/20 renal ultrasound, essentially stable, question of small stone left side ? UA today shows 6.0-7.0, high specific gravity suggestive of relative dehydration. ? Current therapeutic plan will be General advice to maintain good fluid intake for urine greater than 2.0 L per day, reduce salt and reduce protein and acid loads was provided?? [facility] Medical History Post-nasal drip Bronchitis Numbness in feet Impacted cerumen of left ear Hoarseness Stye Hoarseness Hip pain, right Lower back pain Colon cancer screening Acute sinusitis Trigger finger of right hand Bile salt-induced diarrhea Osteoarthritis Irritable bowel syndrome GERD (gastroesophageal reflux disease) Essential tremor Hypercholesterolemia Calculus of left kidney Constipation Cholecystectomy planned Right knee meniscal tear Hepatitis Osteoporosis Umbilical hernia History of duodenal ulcer Liver hemangioma Surgical History Hx of tonsillectomy History of cholecystectomy Cataract History of knee surgery History of eyelid surgery H/O adenoidectomy History of appendectomy Family History Father Hypertension Prostate cancer Mother Hypertension Diabetes Dementia Maternal Aunt Gastric cancer Paternal Aunt Gastric cancer Ovarian cancer Paternal Uncle Myocardial infarction Social History Household Members: Spouse Housing: House Do you presently have visiting nurse or other home services: No Alcohol intake: never Patient Tobacco Use Status: Never used Tobacco Tobacco use type: Cigarette e-Cigarette/Vaping Use: Never Used Second Hand Smoke Exposure: No service: No Current occupational status: retired Cognitive needs: No Hearing needs: No Vision needs: Yes Review of Systems Const Denies chills and Denies fever(s) Card Reports no additional complaints and Denies syncope Resp Denies cough GI Denies abdominal pain and Denies heartburn Reports as per HPI and Denies change in libido Neuro Denies syncope Psych Denies change in libido Endo Denies change in libido Physical Exam Const General: cooperative, healthy appearing, comfortable and no acute distress Orientation/consciousness: patient oriented x3 HEENT Face and sinus: Yes normal facial exam Mouth: moist mucous membranes Neck Neck: Yes normal visual inspection, Yes full ROM and Yes trachea midline Chest Chest palpation & inspection: normal inspection of the chest Resp Effort & Inspection: normal respiratory effort, able to speak in complete sentences and no respiratory distress GI Inspection: Yes normal to inspection Back/Spine/Pelvis Cervical Spine: normal cervical lordosis Thoracic/Lumbar Spine: thoracic and lumbar spine normal to inspection Skin General skin exam: no rashes or lesions noted Neuro General: patient oriented x3, gait normal, tone normal and moves all extremities Extrem General: Yes normal to inspection and Yes capillary refill normal Assessment & Plan Assessment & Plan (1) Nephrolithiasis: Comment: 04/2022 Code(s): N20.0 - Calculus of kidney Category: Medical Plan P.r.n. follow-up Patient Instructions: This note is constructed using voice recognition software. While every effort has been made to ensure accuracy corn cutter operator errors may have been included. Imaging studies, laboratory and physical exam results were discussed and reviewed in detail. No major barriers to patient understanding were identified. An opportunity to ask questions regarding the treatment plan was provided. All questions were answered. The patient expressed understanding and agreement with the above treatment plan. The patient is aware they should contact our office by phone for worsening of their current condition or the appearance of new urologic symptoms. Compliance is encouraged with any medications and followup testing that is ordered. It is a privilege to participate in the urologic care of your patient. If you have any questions or concerns regarding treatment for the above conditions, or other urologic issues, please do not hesitate to contact me. The office telephone contact is [phone]. Sincerely, Dr Attila Randolph MD, [facility] - Urology Compassionate Specialist Care for the Genitourinary System Coding Level of Care Code Est Pt Level 4 (38201) Diagnoses Nephrolithiasis N20.0
--- OUTSIDE RECORDS SUMMARY | 2025-05-08 18:35 | XMS_ITS | Clinical Summary ---
Author Organization [facility] Address [address] [place] [address] Phone Care Team Providers Care Portable Irrigation Operator Name Role Phone Darwin Hopper MD Primary Care Provider [phone] Surgical History Surgery Date Site/Laterality Comments ADENOIDECTOMY [...] year. Mammo Location: [facility], [address] [place] [address], [address], . -------- FINAL REPORT -------- Dictated By: Geneva Coronel Dictated Date: 09/13/2024 15:07 ET Assigned Physician: Geneva Coronel Reviewed and Electronically Signed By: Geneva Coronel Signed Date: 09/13/2024 15:09 ET Workstation ID: [id number] Transcribed By: Self Edit Transcribed Date: 09/13/2024 [...] year. Mammo Location: [facility], [address] [place] [address], [address], . -------- FINAL REPORT -------- Dictated By: Geneva Coronel Dictated Date: 09/13/2024 15:07 ET Assigned Physician: Geneva Coronel Reviewed and Electronically Signed By: Geneva Coronel Signed Date: 09/13/2024 15:09 ET Workstation ID: [id number] Transcribed By: Self Edit Transcribed Date: 09/13/2024 15:07 ET us Self Referral Sppl IMG BI PROCEDURES Final Resul t * JAIME DEXA AXIAL SKELETON (07/18/2023 3:48 PM EST) Anatomical Region Laterality Modality Mammography 07/18/2023 2:51 PM EST Narrative 07/18/2023 3:48 PM EST [facility] Diagnostic Imaging Department [address] [place] [address] [id number] Patient: DEONJESSEKIKEO.B./Age/Sex: 1950 - 73 - F Unit#: [id number] Location/Status: [facility]/REG CLI Mnemonic[facility] Ordering Physician: ANALILIA OWENS MD [facility] Dexa Axial Skeleton - 07/18/23 - 1525 Report Status:Signed History: Low estrogen state due to menopause. Personal history of fracture. Height loss. Comparison: 06/02/21 Findings: Bone densitometry is performed utilizing dual energy x-ray absorptiometry (DXA) in the Bookatable (Livebookings) unit. The lumbar spine and proximal femora [...] 25.9 percent Hip 8.1 percent. IMPRESSION: Osteoporosis. [id number] Dictating Physician: BAILEY NIETO MD Electronically Signed by: BAILEY NIETO MD Dic Date/Time: 07/18/23 1547 Sign date/Time: 07/18/23 1548 Procedure Note Bailey Nieto MD - 02/13/2024 [facility] Diagnostic Imaging Department [address] [place] [address] Patient: KIKE NAVARRO Bee ChaconB./Age/Sex: 1950 - 73 - F Unit#: [id number] Location/Status: [facility]/REG CLI Mnemonic[facility] Ordering Physician: ANALILIA OWENS MD [facility] Dexa Axial Skeleton - 07/18/23 - 1525 Report Status:Signed History: Low estrogen state due to menopause. Personal history offracture. Height loss. Comparison: 06/02/21 Findings: Bone densitometry is performed utilizing dual energy x-ray absorptiometry(DXA) in the Bookatable (Livebookings) unit. The lumbar spine and proximal femora [...] 25.9 percent Hip 8.1 percent. IMPRESSION: Osteoporosis. 22976 Dictating Physician: BAILEY NIETO MD Electronically Signed by: BAILEY NIETO MD Dic Date/Time: 07/18/23 1547 Sign date/Time: 07/18/23 1548 Analilia Owens MD IMG BI PROCEDURES Final Re sult from Last 3 Months or Most Recently Relevant to Health Maintenance Insurance MEDICARE Care Teams Portable Irrigation Operator Relationship Specialty Start Date End Date Darwin Hopper MD [address] [place] [address] [address] [facility] [place] [address] PCP - General Internal Medicine 08/13/19
--- OUTSIDE RECORDS SUMMARY | 2025-05-08 18:35 | XMS_ITS | Clinical Summary ---
Author Organization [facility] Address [address] [place] [address] Care Team Providers Care Oven Builder Name Role Phone Darwin Hopper MD Primary Care Provider [phone] Allergies Active Allergy Reactions Criticality Noted Date [...] by mouth. 0 07/30/2015 Active nystatin (MYCOSTATIN) 023653 units tablet Take by mouth. 0 07/30/2015 [...] age to complete this topic Care Teams Oven Builder Relationship Specialty Start Date End Date Po, Darwin Wasserman MD [address] [place] [address] Dr [address] [facility] [place], [place] [id number] PCP - General Internal Medicine 08/13/19
--- OUTSIDE RECORDS SUMMARY | 2025-05-08 18:35 | XMS_ITS | Patient Health Record ---
Author Organization [facility] Address [address] [place] [address] Care Team Providers Care Extruder Operator Vertical Name Role Phone Darwin Hopper MD Primary [...] Multi Vitamin/Minerals - 1 Orally QD Active [place] 3 1000 MG 1 AND half capsule [...] Risk Notes Problem Left lower quadrant pain (916832510) Left lower quadrant pain (R10.32) Active confirmed Problem Functional diarrhea (10525467) Functional diarrhea (K59.1) Active confirmed Problem Backache (821978572) Dorsalgia, unspecified (M54.9) Active confirmed Problem Elevated liver enzymes level (539167293) Elevated LFTs (R79.89) Active confirmed Problem Gastroesophageal reflux disease without esophagitis (123497845) Gastroesophageal reflux disease without esophagitis (K21.9) Active confirmed Problem Dysphagia (48282679) Dysphagia, unspecified type (R13.10) Active confirmed Problem Left lower quadrant pain (896134157) Abdominal pain, LLQ (R10.32) Active confirmed Problem Irritable bowel syndrome characterized by constipation (553149000) Irritable bowel syndrome with constipation (K58.1) Active confirmed Problem Family history of polyp of colon (416545121) FH: colon polyps (Z83.71) Active confirmed Problem Left lower quadrant pain (079945228) LLQ pain (R10.32) Active confirmed Vital Signs Temperature 98.6 degrees Fahrenheit 10/22/2024 Blood pressure diastolic 01 mm Hg 10/22/2024 Height 61 in 10/22/2024 Blood pressure systolic 001 mm Hg 10/22/2024 Weight 131.6 lbs 10/22/2024 BMI 24.86 kg/m2 10/22/2024 Encounters Encounter Location Date Provider Diagnosis [facility] [address] [place] [phone] 10/22/2024 Zoltan Vazquez Jr Gastroesophageal reflux disease without esophagitis K21.9 and Irritable bowel syndrome with constipation K58.1 [facility] [address] [place] [phone] 07/11/2024 Zoltan Vazquez Jr Assessments Encounter Date [...] Name:Zoltan turner , 05/16/2025 02:15:00 PM, [address] [place] [address], [address], [place], [address], Insurance Providers Payer Name Payer Address Payer Phone Subscriber Number Group Number Insured Name Patient Relationship to Insured Coverage Start Date Coverage End Date MEDICARE OF [place] [address] [place] [id number] [id number] HOLLY TRANA Self - patient is the insured MEDEX ATTN CLAIMS [address] [place] [address] [phone] [id number] HOLLY TRANA Self - patient is the [...]
--- OUTSIDE RECORDS SUMMARY | 2025-05-08 18:35 | XMS_ITS | Patient Health Record ---
[facility] Address [address] [facility] [place] [address] Care Team Providers Care Staff Home Therapy Rn Name Role Phone Darwin Hopper Primary Care Provider Jacki Christianson Unavailable [phone] Jose Baker Unavailable [phone] Allergies Allergen (clinical drug ingredient) Drug/Non Drug [...] Active Cymbalta Active Fosamax Active Multivitamin Active [place] 3 Active Omeprazole 20 MG 1 capsule [...] Status Risk Notes Problem Acquired hallux valgus (87409169) Hallux valgus (acquired), right foot (M20.11) Active confirmed Problem Bilateral atherosclerosis of arteries of lower limbs (disorder) (90151301882721738 ) Atherosclerosis of muscogee artery of both lower [...] Ordered Date Performed Result Body Sit e 74781-SWTKXJH NAIL, 6 OR MORE 06/04/2024 N/A 95691-XNKI SKIN LESIONS, 2 TO 4 06/04/2024 N/A 63224-HXZEUMK NAIL, 6 OR MORE 08/30/2024 N/A 23846 I&D ABSCESS- SIMPLE,SINGLE 08/30/2024 N/A 16013-WNPU SKIN LESIONS, 2 TO 4 08/30/2024 N/A 13280-KTEPVXH NAIL, 6 OR MORE 11/29/2024 N/A 38113-PJES SKIN LESIONS, 2 TO 4 11/29/2024 N/A 42248-OKWKISX NAIL, 6 OR MORE 02/28/2025 N/A 23160-LGTQ SKIN LESIONS, 2 TO 4 02/28/2025 N/A 04727-Lbdbllbx Plate 04/09/2025 N/A Encounters Encounter Location Date Provider Diagnosis [address] [address] 06/04/2024 Jose Samuel Atherosclerosis of muscogee artery of both lower extremities, with unspecified presence of clinical manifestation I70.203 ; Tinea unguium B35.1 ; Pain in right toe(s) M79.674 ; Pain in left toe(s) M79.675 and Xerosis of skin L85.[address] [address] 08/30/2024 Jose Samuel Atherosclerosis of muscogee artery of both lower extremities, with unspecified presence of clinical manifestation I70.203 ; Tinea unguium B35.1 ; Pain in right toe(s) M79.674 ; Pain in left toe(s) M79.675 and Abscess of toe, right L02.[address] [address] 11/29/2024 Jose Samuel Atherosclerosis of muscogee artery of both lower extremities, with unspecified presence of clinical manifestation I70.203 ; Tinea unguium B35.1 ; Pain in right toe(s) M79.674 and Pain in left toe(s) M79.[address] [address] 02/28/2025 Jose Samuel Atherosclerosis of muscogee artery of both lower extremities, with unspecified presence of clinical manifestation I70.203 ; Tinea unguium B35.1 ; Pain in right toe(s) M79.674 and Pain in left toe(s) M79.675 [facility] [address] [address] 03/08/2025 Jacki Leon Pain in right toe(s) M79.674 ; Onychomycosis B35.1 and Pain in left toe(s) M79.675 [facility] [address] [address] 04/09/2025 Jackiisabella Leon Ingrown nail L60.[address] [address] 08/27/2024 Joselydia Baker [facility] [address] [place] [address] 03/07/2025 Joselydia Baker [facility] [address] [place] [address] 03/08/2025 Jacki Leon [address] [address] 04/03/2025 Jacki Leon Assessments Encounter Date Diagnosis (ICD Code) Assessment Notes Treatment Notes Treatment Clinical Notes Section Notes 06/04/2024 Tinea unguium (ICD-10 - B35.1) 06/04/2024 Atherosclerosis of muscogee artery of both lower extremities, with unspecified presence of clinical manifestation (ICD-10 - I70.203) 08/30/2024 Tinea unguium (ICD-10 - B35.1) 08/30/2024 Atherosclerosis of muscogee artery of both lower extremities, with unspecified presence of clinical manifestation (ICD-10 - I70.203) Q7(A), Q8(2B), Q9(1B,2C) 11/29/2024 Tinea unguium (ICD-10 - B35.1) 11/29/2024 Atherosclerosis of muscogee artery of both lower extremities, with unspecified presence of clinical manifestation (ICD-10 - I70.203) Q7(A), Q8(2B), Q9(1B,2C) 02/28/2025 Tinea unguium (ICD-10 - B35.1) 02/28/2025 Atherosclerosis of muscogee artery of both lower [...] Order Date *Liver Function Test (LFT) 03/08/2025 80910-XEBQXFJ NAIL, 6 OR MORE 11/29/2024 26916-MQGNGGY NAIL, 6 OR MORE 02/28/2025 04963-UVQOMJN NAIL, 6 OR MORE 12/07/2023 66734-FZJMHHJ NAIL, 6 OR MORE 03/08/2024 13746-CNWDIGM NAIL, 6 OR MORE 06/04/2024 19809-KIVGDJZ NAIL, 6 OR MORE 08/30/2024 15076-Lbrjiswr Plate 03/08/2024 64279-Eedqjixv Plate 04/09/2025 25759 I&D ABSCESS- SIMPLE,SINGLE 025 76870-CIRX SKIN LESIONS, 2 TO 4 02/29/20 25 35688-OMXT SKIN LESIONS, 2 TO 4 11/30/19 25 85979-OWMH SKIN LESIONS, 2 TO 4 03/08/20 24 17916-LLPM SKIN LESIONS, 2 TO 4 12/07/19 24 65826-MSCE SKIN LESIONS, 2 TO 4 08/31/19 25 11784-GKLA SKIN LESIONS, 2 TO 4 06/04/20 24 Next Appt Details Provider Name:Jacki Soto arya, 05/13/2025 02:00:00 PM, [address] [place], [address], Insurance Providers Payer Name Payer Address Payer Phone Subscriber Number Group Number Insured Name Patient Relationship to Insured Coverage Start Date Coverage End Date Medicare [facility] [address] [place] [address] [id number] Madison Navarro Self - patient is the insured [id number] [facility] [address] [place] [address] [id number] Madison Navarro Self - patient is the [...]
--- OUTSIDE RECORDS SUMMARY | 2025-05-08 18:35 | XMS_ITS | Clinical Summary ---
Author Organization [facility] Address [address] [place], [place] [address] Phone Care Team Providers Care Secondary Social Studies Teacher Name Role Phone Darwin Hopper MD Primary Care Provider [phone] Social History Tobacco Use Types Packs/Day Years Used Date Smoking Tobacco: Never Assessed Comments Unknown Sex and Gender Information Value Date Recorded Sex Assigned at Not on file Legal Sex Female 10:04 PM EDT Gender Identity Not on file Sexual Orientation Not on file Plan of Treatment Not on file Medical Devices Not on file Insurance [employer] MEDEX SUPPLEMENT MEDICARE PART A & B [employer] MEDEX SUPPLEMENT MEDICARE PART A & B [employer] MEDEX SUPPLEMENT MEDICARE PART A & B [employer] MEDEX SUPPLEMENT MEDICARE PART A & B [employer] MEDEX SUPPLEMENT MEDICARE PART A & B [employer] CROSS MEDEX SUPPLEMENT MEDICARE PART A & B Care Teams Secondary Social Studies Teacher Relationship Specialty Start Date End Date Darwin Hopper MD [address] [place] [address] PCP - General Internal Medicine 10/22/24 Additional Source Comments The information contained in this document represents components of the legal health record. It is not the complete legal health record.[facility]
--- OUTSIDE RECORDS SUMMARY | 2025-05-08 18:36 | XMS_ITS | Patient Health Record ---
Author Organization [employer] [facility] Address [address] [place] [address] Care Team Providers Care Gantry Crane Operator Name Role Phone CARROLL SHANNON M.D. Primary Care Provider Analilia Manning Unavailable [phone] Allergies Allergen (clinical drug ingredient) Drug/Non Drug [...] even ing Orally Once a day Active [place] 3 1000 MG 1 capsule Orally Onc [...] Status Risk Notes Problem Gynecological examination abnormal (733352407756218) Encounter for gynecological examination (general) (routine) with abnormal findings (Z01.411) Active confirmed Problem Postmenopausal atrophic vaginitis (54768031) Postmenopausal atrophic vaginitis (N95.2) Active confirmed Problem Age-related osteoporosis (699102654) Age-related osteoporosis without current pathological fracture (M81.0) Active confirmed Problem Urinary incontinence (341567403) Unspecified urinary incontinence (R32) Active confirmed Problem Constipation (58374603) Constipation, unspecified (K59.00) Active confirmed Problem Anxiety state (906265571) Anxiety state, unspecified (300.00) Active confirmed Major Problem Depressive disorder (09429173) Depressive disorder, not elsewhere classified (311) Active confirmed Major Problem Dyspareunia (04477016) Dyspareunia (625.0) Active confirmed Diag Problem Female stress incontinence (01122788) Female stress incontinence (625.6) Active confirmed Major Problem Menopausal symptom (28390378) Symptomatic menopausal or female climacteric states (627.2) Active confirmed Major Problem Postmenopausal atrophic vaginitis (75819001) Postmenopausal atrophic vaginitis (627.3) Active confirmed Diag Problem Osteoporosis (67522229) Unspecified osteoporosis (733.00) Active confirmed Problem Gynecological examination normal (841699327674061) Routine gynecological examination (V72.31) Active confirmed Major Problem Screening for malignant neoplasm of colon (140360653) Special screening for malignant neoplasms, colon (V76.51) Active confirmed Major Vital Signs Temperature 97.4 degrees Fahrenheit 06/28/2024 Blood pressure diastolic 74 mm Hg 06/28/2024 Height 60.8 in 06/28/2024 Blood pressure systolic 108 mm Hg 06/28/2024 Weight 140 lbs 06/28/2024 BMI 26.62 kg/m2 06/28/2024 Encounters Encounter Location Date Provider Diagnosis [facility] [employer] [address] [place] [address] 06/28/2024 Analilia Galvan Encounter for gynecological examination [...] Name:Analilia Caraballo chelitavalerierachael, 07/05/2025 03:00:00 PM, [address], [address], [place], [address], Insurance Providers Payer Name Payer Address Payer Phone Subscriber Number Group Number Insured Name Patient Relationship to Insured Coverage Start Date Coverage End Date MEDICARE [address] [place] [id number] DEONHOLLY MOLINAA Self - patient is the insured MEDEX [address] [place] [address] [id number] HOLLY TRANA Self - patient is [...]
== END 2025-05-08 15:46 | disposition home or self-care (01) ==
LOC: HO.HUSH 15:22
PROVIDERS: PCP Internal Medicine; Visit Provider Urology
DX: N20.0 Calculus of kidney (principal)
CPT/HCPCS: 99214

== ENCOUNTER → 2025-05-08 15:22 | Outpatient (BNVA) | payer MEDICARE, SELFPAY | PROVIDERS: PCP Internal Medicine; Visit Provider Urology | DX: N20.0 Calculus of kidney (principal); K59.00 Constipation, unspecified | CPT/HCPCS: 99212 ==

== ENCOUNTER 2025-06-04 15:25 | Outpatient (AMB) | payer MEDICARE, SELFPAY ==
--- OUTSIDE RECORDS SUMMARY | 2024-07-05 10:55 | XMS_ITS ---
Author Organization [facility] Address [address] [place] [address] Care Team Providers Care Plastic Tool Maker Name Role Phone Darwin Hopper MD Primary Care Provider Zoltan Grant Jr REASON FOR VISIT IBS,gerd Encounters Encounter Location Date Provider Diagnosis [facility] [address] [facility] [address] [place] [address] 07/05/2024 Zoltan Vazquez Jr Plan Of Treatment Next Appt Details Provider Name:Zoltan turner Jr, 04/03/2026 03:15:00 PM, [address] [place] [address], [address], [place], [address], Progress Notes * KIKE TRANDOB:1950 (75 yo F)Acc No.[id number]:07/05/2024 Progress Notes Patient: KIKE MORALES Provider: Adeline Vazquez MD :1950 A ge:74 Y S ex:Female Date:07/05/2024 Address:[address] [place] [address] [id number] Pcp:Darwin Hopper MD Subjective: * Chief Complaints: * I BS,gerd * The named appointment provid er may or may not be the originator of this progress note, and it is not deemed complete until electronically signed by the appointment provider. Sign off status: Pending * Provider: Adeline Vazquez MD Date: 0 07/05/2024 Generated for Miranda mariee/Tony/Petronaitting on: 1 08/05/2024 09:58 PM EST
--- OUTSIDE RECORDS SUMMARY | 2024-07-12 09:15 | XMS_ITS ---
Author Organization [facility] Address [address] [place] [address] Care Team Providers Care Church Communications Administrator Name Role Phone Darwin Hopper MD Primary Care Provider Zoltan Grant Jr REASON FOR VISIT IBS,gerd Encounters Encounter Location Date Provider Diagnosis [facility] [address] [place] [address] 07/12/2024 Zoltan Vazquez Jr Plan Of Treatment Next Appt Details Provider Name:Zoltan turner Jr, 04/03/2026 03:15:00 PM, [address] [facility] [address] [facility], [address], [place], [address], Progress Notes * KIKE TRANDOB:1950 (75 yo F)Acc No.[id number]:07/12/2024 Progress Notes Patient: KIKE MORALES Provider: Adeline Vazquez MD :1950 A ge:74 Y S ex:Female Date:07/12/2024 Address:[address] [place] [address] [id number] Pcp:Darwin Hopper MD Subjective: * Chief Complaints: * I BS,gerd * The named appointment provid er may or may not be the originator of this progress note, and it is not deemed complete until electronically signed by the appointment provider. Sign off status: Pending * Provider: Adeline Vazquez MD Date: 0 07/12/2024 Generated for Miranda mariee/Tony/Petronaitting on: 1 08/05/2024 09:59 PM EST
--- OUTSIDE RECORDS SUMMARY | 2024-11-22 10:00 | XMS_ITS ---
Author Organization [facility] Address [address] [place] [address] Care Team Providers Care Heading Matcher And Assembler Name Role Phone Darwin Hopper Primary Care Provider Unavailabl Jacki Sadler Unavailable [phone] Jose Baker [phone] Encounters Encounter Location Date [facility] [address] [address] 11/22/[facility]24 Jose Baker Plan Of Treatment Next Appt Details Provider Name:Jacki koenig, 07/23/2025 04:00:00 PM, [address] [place] [address], [address], Progress Notes * Nicole NAVARROaDOB:1950 ( 75 yo F)Acc No.[id number]:11/22/2024 Progress Note Patient: Madison MORALES Provider: Bobby Baker DPM :1950 A ge:74 Y S ex:Female Date:11/22/2024 [address] [facility] [place] Pcp:Darwin Hopper Subjective: * Chief Complaints: * [...] 11/22/2024 Generated for Miranda mariee/Josh on: 1 08/05/2024 09:57 PM EST
--- NOTE | 2025-06-04 15:36 | A.OFFVIS_ITS ---
Intake Visit Reasons: follow up Arterial US 05/03/25 Intake Note: Patient presents for follow up arterial US performed 05/03/25. Patient states she has bilateral knee pain , but states it is due to her arthritis. Has also been experiencing leg cramps. Her ankles have been hurting , states it feels as if someone is twisting and griiping her ankles. Accompanied by: Self / Same As Patient Allergies lamotrigine (From LAMICTAL) Allergy (Intermediate, Verified 06/04/25 15:39) RASH Sulfa (Sulfonamide Antibiotics) (SULFA (SULFONAMIDE ANTIBIOTICS)) Allergy (Intermediate, Verified 06/04/25 15:39) UNKNOWN, upset stomach codeine (CODEINE) Allergy (Mild, Verified 06/04/25 15:39) NAUSEA & VOMITING, nausea and vomiting penicillin V (PENICILLIN V) Allergy (Mild, Verified 06/04/25 15:39) NAUSEA & VOMITING, sick to stomach, nausea and vomiting ciprofloxacin (Cipro) Allergy (Unknown, Verified 06/04/25 15:39) sick to stomach ibuprofen (From Motrin) Adverse Reaction (Verified 06/04/25 15:39) sick to stomach, nausea and vomiting HPI HPI follow up Arterial US 05/03/25: Details: The patient is a 75 year old female presenting for an arterial follow-up and evaluation of leg pain. Her symptoms initially began with swelling in her feet and legs. Her primary complaint is significant bilateral knee pain, which is worse in the left knee, and has been diagnosed as arthritis via X-ray. The pain is severe, causing difficulty going up and down stairs and finding a comfortable position in bed. She also reports painful right leg cramps and ankle pain described as a twisting sensation. Recent workup included an ultrasound which was negative for deep vein thrombosis and venous insufficiency. Arterial studies on May 03, 2025, showed normal ABIs of 1.04 on the right and 1.09 on the left, and a prior venous insufficiency study was noted to be essentially negative. A small Welch's cyst behind the knee was also identified. She has a history of using compression socks which did not provide significant relief and led to itchiness and a blister. She receives Dupixent injections every two weeks from a network consultant. The patient is scheduled to see an orth opedic specialist, Dr. Beckwith, on June 08. Also interesting of note she had seen Dr. Filiberto izquierdo in 2020 for lumbar spondylosis. [facility] Medical History Post-nasal drip Bronchitis Numbness in feet Impacted cerumen of left ear Hoarseness Stye Hoarseness Hip pain, right Lower back pain Colon cancer screening Acute sinusitis Trigger finger of right hand Bile salt-induced diarrhea Osteoarthritis Irritable bowel syndrome GERD (gastroesophageal reflux disease) Essential tremor Hypercholesterolemia Calculus of left kidney Constipation Cholecystectomy planned Right knee meniscal tear Hepatitis Osteoporosis Umbilical hernia History of duodenal ulcer Liver hemangioma Surgical History Hx of tonsillectomy History of cholecystectomy Cataract History of knee surgery History of eyelid surgery H/O adenoidectomy History of appendectomy Family History Father Hypertension Prostate cancer Mother Hypertension Diabetes Dementia Maternal Aunt Gastric cancer Paternal Aunt Gastric cancer Ovarian cancer Paternal Uncle Myocardial infarction Social History Household Members: Spouse Housing: House Do you presently have visiting nurse or other home services: No Alcohol intake: never Patient Tobacco Use Status: Never used Tobacco Tobacco use type: Cigarette e-Cigarette/Vaping Use: Never Used Second Hand Smoke Exposure: No service: No Current occupational status: retired Cognitive needs: No Hearing needs: No Vision needs: Yes Review of Systems Const All systems reviewed & are unremarkable except as noted in HPI and below Reports no additional complaints ENT Reports Normal hearing present Card Denies chest pain, Denies chest pain at rest, Denies chest pain with activity and Denies pedal edema Resp Denies cough GI Denies abdominal pain Musc Denies abnormal gait, Denies muscle cramps and Denies radiating pain into limb Skin/Breast Denies skin ulcer and Denies wounds Neuro Reports Normal hearing present and Denies abnormal gait Psych Reports no additional complaints Physical Exam Const General: cooperative, healthy appearing and comfortable Orientation/consciousness: oriented to person, oriented to place and oriented to time HEENT Head: Yes normal to inspection Neck Neck: Yes normal visual inspection Carotids: no bruits Chest Chest palpation & inspection: normal inspection of the chest Resp Effort & Inspection: normal respiratory effort and able to speak in complete sentences Auscultation: clear to auscultation bilaterally, no crackles, no rales, no rhonchi and no wheezes Cardio Rate: regular rate Rhythm: regular rhythm Heart sounds: S1 normal heart sound present and S2 normal heart sound present Bruits: no carotid bruits Peripheral pulses: Peripheral pulses 2+ throughout GI Inspection: Yes normal to inspection Skin Other: Scaly skin is bottom half of calf. No evidence of open ulceration Wounds: no wounds Hair: normal Neuro General: oriented to person, oriented to place and oriented to time Cranial nerves: Yes CN's II-XII intact bilaterally and Yes Normal hearing present Cognition (Neuro): normal cognition Motor exam (neuro): 5/5 motor strength present throughout Extrem Other: venous exam: +1 edema General: No clubbing, No cyanosis and Yes edema Psych Appearance: grossly normal Mental Status: mental status grossly normal Speech and movement: Normal speech and movement present Results Reviewed Results Reviewed: 01/25/2025 venous insufficiency testing essentially normal 05/03/2025 arterial testing demonstrates DARIELA on the right of 1.04 and on the left of 1.0 night. 04/26/2025 x-ray of knee demonstrates arthritis Assessment & Plan Assessment & Plan (1) Leg swelling: Code(s): M79.89 - Other specified soft tissue disorders Category: Medical Plan: I reviewed the patient's recent diagnostic results with her, explaining that the arterial and venous studies are normal. I reassured her that her leg symptoms, including pain and swelling, are not due to a vascular problem and that her blood vessels are in good condition. I confirmed that her knee pain is attributable to arthritis, and I endorsed her plan to follow up with orthopedics for management. I advised that no vascular intervention is necessary. She will follow up with us on an as-needed basis. Thank you for allowing us to assist in her care. Coding Level of Care Code Est Pt Level 4 (02581) Diagnoses Leg swelling M79.89
--- OUTSIDE RECORDS SUMMARY | 2025-06-04 21:57 | XMS_ITS | Clinical Summary ---
Author Organization [facility] Address [address] [place] [address] Phone Care Team Providers Care Charging Crane Operator Name Role Phone Darwin Hopper MD Primary Care Provider [phone] Surgical History Surgery Date Site/Laterality Comments ADENOIDECTOMY [...] Orientation Straight 08/10/2024 12 :16 PM EST Last Filed Vital Signs Vital Sign Reading [...] Additional history exists Influenza Vaccine (#1) 2025 4, 03/31/2023, 04/05/2022, Additional history exists DTaP,Tdap,and Td [...] year. Mammo Location: [facility], [address] [place] [address], [address], . -------- FINAL REPORT -------- Dictated By: Geneva Coronel Dictated Date: 09/13/2024 15:07 ET Assigned Physician: Geneva Coronel Reviewed and Electronically Signed By: Geneva Coronel Signed Date: 09/13/2024 15:09 ET Workstation ID: [id number] Transcribed By: Self Edit Transcribed Date: 09/13/2024 [...] year. Mammo Location: [facility], [address] [place] [address], [address], . -------- FINAL REPORT -------- Dictated By: Geneva Coronel Dictated Date: 09/13/2024 15:07 ET Assigned Physician: Geneva Coronel Reviewed and Electronically Signed By: Geneva Coronel Signed Date: 09/13/2024 15:09 ET Workstation ID: [id number] Transcribed By: Self Edit Transcribed Date: 09/13/2024 15:07 ET us Self Referral Sppl IMG BI PROCEDURES Final Resul t * JAIME DEXA AXIAL SKELETON (07/18/2023 3:48 PM EST) Anatomical Region Laterality Modality Mammography 07/18/2023 2:51 PM EST Narrative 07/18/2023 3:48 PM EST [facility] Diagnostic Imaging Department [address] [place] [address] [id number] Patient: KIKE NAVARROO.B./Age/Sex: 1950 - 73 - F Unit#: [id number] Location/Status: SPDIMAM/REG CLI Mnemonic/Ordering Site: [facility] Ordering Physician: ANALILIA OWENS MD [facility] Dexa Axial Skeleton - 07/18/23 - 1525 Report Status:Signed History: Low estrogen state due to menopause. Personal history of fracture. Height loss. Comparison: 06/02/21 Findings: Bone densitometry is performed utilizing dual energy x-ray absorptiometry (DXA) in the [employer] unit. The lumbar spine and proximal femora [...] 25.9 percent Hip 8.1 percent. IMPRESSION: Osteoporosis. [id number] Dictating Physician: BAILEY NIETO MD Electronically Signed by: BAILEY NIETO MD Dic Date/Time: 07/18/23 1547 Sign date/Time: 07/18/23 1548 Procedure Note Bailey Nieto MD - 02/13/2024 [facility] Diagnostic Imaging Department [address] [place] [address] Patient: KIKE NAVARRO Bee Silverio/Age/Sex: 1950 - 73 - F Unit#: [id number] Location/Status: [facility]/REG CLI Mnemonic/Ordering [facility] Ordering Physician: ANALILIA OWENS MD Jaime Dexa Axial Skeleton - 07/18/23 - 1525 Report Status:Signed History: Low estrogen state due to menopause. Personal history offracture. Height loss. Comparison: 06/02/21 Findings: Bone densitometry is performed utilizing dual energy x-ray absorptiometry(DXA) in the [employer] unit. The lumbar spine and proximal femora [...] 25.9 percent Hip 8.1 percent. IMPRESSION: Osteoporosis. [id number] Dictating Physician: BAILEY NIETO MD Electronically Signed by: BAILEY NIETO MD Dic Date/Time: 07/18/23 1547 Sign date/Time: 07/18/23 1548 Analilia Owens MD IMG BI PROCEDURES Final Re sult from Last 3 Months or Most Recently Relevant to Health Maintenance Insurance MEDICARE Care Teams Charging Crane Operator Relationship Specialty Start Date End Date Darwni Hopper MD [address] [place] [address] [address] [facility] [place] [address] PCP - General Internal Medicine 08/13/19
--- OUTSIDE RECORDS SUMMARY | 2025-06-04 21:58 | XMS_ITS | Patient Health Record ---
Author Organization [facility] Address [address] [place] [address] Care Team Providers Care Transitional Studies Instructor Name Role Phone Darwin Hopper MD Primary Care Provider Zoltan Grant Jr Allergies Allergen (clinical drug ingredient) Drug/Non Drug Allergy documented on EMR Reaction Allergy Type Onset Date Status Codeine Phosphate Unknown Drug Allergy Active lamotrigine Lamictal Unknown Drug Allergy Activ e Motrin Unknown Drug Allergy Active Penicillin Unknown Drug Allergy Active Reason For Referral No Information Medications Medication SIG (Take, Route, Frequency, Duration) Notes Start Date End Date Status Diflucan 03/30/2021 Unknown Lexapro 10 MG Tablet 1 tablet Orally Onc e a day; Duration: 30 day(s) Not-Taking/PRN Salagen 7.5 MG Tablet 1 tablet Orally Th ree times a day Not-Taking/PRN Ruso 3 1000 MG Capsule 1 AND half capsu le Orally Once a day Active Multi Vitamin/Minerals - Tablet 1 Orally QD Active Cequa 0.09 % Solution 1 drop into affect ed eye Ophthalmic every 12 hrs Active Calcium Magnesium Ac tive Vitamin D 50 MCG (1999 [place]) Capsule 1 capsule Orally Once a day; Duration: 30 day(s) Active Dupixent 300 MG/2ML Solution Auto-injector Subcutaneous; Duration: 28 Days Active Asenapine Maleate 2.[address] ONE TABLET UNDER THE TONGUE 2 TIMES DAY Sublingual; Duration: 30 Not-Taking/PRN Vitamin K Active Fluticasone Propionate 50 MCG/ACT Suspension 1 spray in each nostril Nasally Twice a day Active ALPRAZolam 0.5 MG Tablet 1 tablet Orally once a day Active Zoryve 0.15 % Cream External; Duration: 30 Days Active Omeprazole 20 MG Capsule Delayed Release Orally Acti ve LamISIL Active Vitamin B-6 50 MG Tablet 1 tablet Orally Once a day Active Probiotic - Capsule 1 capsule Orally onc e a day Active Simvastatin 5 MG Tablet 1 tablet in the evening Orally Once a day Active Immunizations Vaccine Route Administration Date Status Comme nts Influenza Unknown 02/25/2017 Administered Influenza Unknown 01/25/2019 Administered Influenza Unknown 02/26/2020 Administered Influenza Unknown 03/26/2021 Administered Influenza Unknown 02/25/2022 Administered Influenza Unknown 03/13/2024 Administered Social History Social History Drug/Alcohol: Social Info Question Answer Notes AUDIT-C (Standard) Did you have a drink containing alcohol in the past year? No Points 0 Interpretation Negative Additional Details Category Social Info Options Details Miscellaneous: Marital status: Occupation: retired Problems Problem Type SNOMED Code ICD Code Onset Dates Problem Status W/U Status Risk Notes Problem Left lower quadrant pain (871887038) Left lower quadrant pain (R10.32) Active confirmed Problem Functional diarrhea (20673558) Functional diarrhea (K59.1) Active confirmed Problem Backache (463579524) Dorsalgia, unspecified (M54.9) Active confirmed Problem Elevated liver enzymes level (253149877) Elevated LFTs (R79.89) Active confirmed Problem Gastroesophageal reflux disease without esophagitis (400809934) Gastroesophageal reflux disease without esophagitis (K21.9) Active confirmed Problem Dysphagia (25286378) Dysphagia, unspecified type (R13.10) Active confirmed Problem Left lower quadrant pain (148027804) Abdominal pain, LLQ (R10.32) Active confirmed Problem Irritable bowel syndrome characterized by constipation (756393484) Irritable bowel syndrome with constipation (K58.1) Active confirmed Problem Family history of polyp of colon (195874958) FH: colon polyps (Z83.71) Active confirmed Problem Left lower quadrant pain (497556085) LLQ pain (R10.32) Active confirmed Vital Signs Temperature 98.6 degrees Fahrenheit 10/22/2024 Blood pressure diastolic 01 mm Hg 05/16/2025 Height 61 in 05/16/2025 Blood pressure systolic 001 mm Hg 05/16/2025 Weight 135.4 lbs 05/16/2025 BMI 25.58 kg/m2 05/16/2025 Encounters Encounter Location Date Provider Diagnosis [facility] [address] [place] [address] 10/22/2024 Zoltan Vazquez Jr Gastroesophageal reflux disease without esophagitis K21.9 and Irritable bowel syndrome with constipation K58.1 [facility] [address] [place] [address] 05/16/2025 Zoltan Vazquez Jr Irritable bowel syndrome with constipation K58.1 and Gastroesophageal reflux disease without esophagitis K21.9 [facility] [address] [place] [address] 07/11/2024 Zoltan Vazquez Jr Assessments Encounter Date [...] to 12 months.Today's visit was 30 minutes. 05/16/2025 Gastroesophageal reflux disease without esophagitis (ICD-10 - K21.9) Kike is doing well. Her symptoms including reflux and IBS remain stable. She has no complaints that are concerning. She will continue her present regimen. We discussed the high-fiber diet today. We discussed diet, lifestyle modifications, and weight management regarding the treatment of reflux. Follow-up will be in 12 months. 05/16/2025 Irritable bowel syndrome with constipation (ICD-10 - K58.1) Kike is doing well. Her symptoms including reflux and IBS remain stable. She has no complaints that are concerning. She will continue her present regimen. We discussed the high-fiber diet today. We discussed diet, lifestyle modifications, and weight management regarding the treatment of reflux. Follow-up will be in 12 months. 10/22/2024 Irritable bowel syndrome with constipation (ICD-10 [...] Appt Details Provider Name:Zoltan Melonie turner , 04/03/2026 03:15:00 PM, [address] [place] [address], [facility] [address], [place], [address], Insurance Providers Payer Name Payer Address Payer Phone Subscriber Number Group Number Insured Name Patient Relationship to Insured Coverage Start Date Coverage End Date MEDICARE OF [place] [address] [facility] [place] [id number] KIKE TRAN Self - patient is the insured [employer] ATTN CLAIMS [address] [place] [address] [id number] KIKE TRAN Self - patient is the insured Medical [...]
--- OUTSIDE RECORDS SUMMARY | 2025-06-04 21:58 | XMS_ITS | Clinical Summary ---
Author Organization [facility] Address [address] [place], [place] [address] Phone Care Team Providers Care Vp Customer Development Name Role Phone Darwin Hopper MD Primary Care Provider [phone] Social History Tobacco Use Types Packs/Day Years Used Date Smoking Tobacco: Never Assessed Comments Unknown Sex and Gender Information Value Date Recorded Sex Assigned at Not on file Legal Sex Female 10:04 PM EDT Gender Identity Not on file Sexual Orientation Not on file Plan of Treatment Not on file Medical Devices Not on file Insurance [employer] MEDEX SUPPLEMENT MEDICARE PART A & B [employer] MEDEX SUPPLEMENT MEDICARE PART A & B [employer] MEDEX SUPPLEMENT MEDICARE PART A & B [employer] MEDEX SUPPLEMENT MEDICARE PART A & B [employer] MEDEX SUPPLEMENT MEDICARE PART A & B [employer] MEDEX SUPPLEMENT MEDICARE PART A & B Care Teams Vp Customer Development Relationship Specialty Start Date End Date Darwin Hopper MD [address] [place] [phone] PCP - General Internal Medicine 10/22/24 Additional Source Comments The information contained in this document represents components of the legal health record. It is not the complete legal health record.[facility]
--- OUTSIDE RECORDS SUMMARY | 2025-06-04 21:58 | XMS_ITS | Clinical Summary ---
Author Organization [facility] Prior to 11/24/[address] [place] [address] Care Team Providers Care Signaling Design Engineer Name Role Phone Darwin Hopper MD Primary Care Provider [phone] Allergies Active Allergy Reactions Criticality Noted Date [...] by mouth. 0 07/30/2015 Active nystatin (MYCOSTATIN) 694023 units tablet Take by mouth. 0 07/30/2015 [...] age to complete this topic Care Teams Signaling Design Engineer Relationship Specialty Start Date End Date Po, Darwin Wasserman MD [address] [place] [address] Dr [address] [facility] [place], [place] [id number] PCP - General Internal Medicine 08/13/19
--- OUTSIDE RECORDS SUMMARY | 2025-06-04 21:58 | XMS_ITS | Patient Health Record ---
Author [facility] Address [address] [facility] [place] [address] Care Team Providers Care Spring Former Machine Name Role Phone Darwin Hopper Primary Care Provider Jacki Christianson Unavailable [phone] Jose Baker Unavailable [phone] Allergies Allergen (clinical drug ingredient) Drug/Non Drug Allergy documented on EMR Reaction Allergy Type Onset Date Status codeine Codeine upset stomach Drug Allergy Act alexander Substance with sulfonamide structure and antibacterial mechanism of action (substance) Sulfa Antibiotics rash Drug Allergy Active Reason For Referral No Information Medications Medication SIG (Take, Route, Frequency, Duration) Notes Start Date End Date Status Cymbalta Active Fosamax Active Multivitamin Active Bailey 3 Active Dupixent 300 MG/2ML 2 mL Subcutaneous Active Calcium Magnesium Ac tive Cequa 0.09 % 1 drop into affected eye Ophthalmic every 12 hrs Active Fluticasone Propionate Not-Taking traZODone HCl 100 MG 1 tablet at bedtime Orally Once a day; Duration: 30 day(s) Not-Taking Omeprazole 20 MG 1 capsule 30 minutes before morning meal Orally Once a day; Duration: 30 day(s) Active Probiotic Active Vitamin B6 Active Asenapine Maleate 2.5 MG 2 tablets under the tongue and allow to dissolve Sublingual Twice a day; Duration: 30 day(s) Not-Taking Lexapro 10 MG 1 tablet Orally Once a day; Duration: 30 day(s) Not-Taking Vitamin D Active Ciclopirox 1 % PLEASE SEE ATTACHED FOR DETAILED DIRECTIONS External; Duration: 30 Days Not-Taking Opzelura 1.5 % 1 application Externally Twice a day Not-Sanjeev WALTONZolam 0.5 MG 1 tablet Orally Twic e a day Not-Taking Simvastatin 5 MG 1 tablet in the even ing Orally Once a day Active Terbinafine HCl 250 MG 1 tablet Orally O nce a day for seven days, hold for 3 weeks then repeat; Duration: 90 days 03/12/2025 Active Triamcinolone Acetonide 0.1 % External; Duration: 30 Days Active Xanax prn Active Metoprolol Succinate Not-Taking Tinactin Active SEROquel 25 MG 1 tablet at bedtime Orally Once a day Not-Taking Ammonium Lactate 12 % 1 application Externally to feet except for between the toes Twice a day; Duration: 30 days Not-Taking Azithromycin Active Immunizations Vaccine Route Administration Date Status [...] Status Risk Notes Problem Acquired hallux valgus (28885445) Hallux valgus (acquired), right foot (M20.11) Active confirmed Problem Bilateral atherosclerosis of arteries of lower limbs (disorder) (65035854183961702 ) Atherosclerosis of [place] artery of both lower extremities, with unspecified presence of clinical manifestation (I70.203) Active confirmed Q7(A), Q8(2B), Q9(1B,2 C) Vital Signs Heart Rate 84 /min 04/09/2025 Blood pressure diastolic 65 mm Hg 05/13/2025 Height 4ft 11 in in 05/13/2025 Blood pressure systolic 128 mm Hg 05/13/2025 Weight 132 lbs 05/13/2025 BMI 26.66 kg/m2 05/13/2025 Procedures Procedure Date Ordered Date Performed Result Body Sit e 98634-FVDSGZY NAIL, 6 OR MORE 06/04/2024 N/A 99686-LESQ SKIN LESIONS, 2 TO 4 06/04/2024 N/A 89935-YHTXEEP NAIL, 6 OR MORE 08/30/2024 N/A 96310 I&D ABSCESS- SIMPLE,SINGLE 08/30/2024 N/A 59202-JOYP SKIN LESIONS, 2 TO 4 08/30/2024 N/A 63511-ELNCBTL NAIL, 6 OR MORE 11/29/2024 N/A 34670-YPSN SKIN LESIONS, 2 TO 4 11/29/2024 N/A 90997-AHZAKMO NAIL, 6 OR MORE 02/28/2025 N/A 53251-MDBX SKIN LESIONS, 2 TO 4 02/28/2025 N/A 77164-Zqytpchv Plate 04/09/2025 N/A 64123-PXUFNUA NAIL, 6 OR MORE 05/13/2025 N/A 06404-YTBW SKIN LESIONS, 2 TO 4 05/13/2025 N/A Encounters Encounter Location Date Provider Diagnosis [address] [address] 06/04/2024 Jose Baker Atherosclerosis of [place] artery of both lower extremities, with unspecified presence of clinical manifestation I70.203 ; Tinea unguium B35.1 ; Pain in right toe(s) M79.674 ; Pain in left toe(s) M79.675 and Xerosis of skin L85.[address] [address] 08/30/2024 Jose Baker Atherosclerosis of [place] artery of both lower extremities, with unspecified presence of clinical manifestation I70.203 ; Tinea unguium B35.1 ; Pain in right toe(s) M79.674 ; Pain in left toe(s) M79.675 and Abscess of toe, right L02.[address] [address] 11/29/2024 Jose Samuel Atherosclerosis of [place] artery of both lower extremities, with unspecified presence of clinical manifestation I70.203 ; Tinea unguium B35.1 ; Pain in right toe(s) M79.674 and Pain in left toe(s) M79.[address] [address] 02/28/2025 Jose Baker Atherosclerosis of [place] artery of both lower extremities, with unspecified presence of clinical manifestation I70.203 ; Tinea unguium B35.1 ; Pain in right toe(s) M79.674 and Pain in left toe(s) M79.[address] [address] 03/08/2025 Jacki Leon Pain in right toe(s) M79.674 ; Onychomycosis B35.1 and Pain in left toe(s) M79.[address] [address] 04/09/2025 Jacki Leon Ingrown nail L60.[address] [address] 05/13/2025 Jacki Leon Atherosclerosis of [place] artery of both lower extremities, with unspecified presence of clinical manifestation I70.203 ; Tinea unguium B35.1 ; Pain in right toe(s) M79.674 and Pain in left toe(s) M79.[address] [address] 08/27/2024 Jose Baker [address] [address] 03/07/2025 Jose Samuel [address] [address] 03/08/2025 Jacki Leon [address] [address] 04/03/2025 Jacki Leon Assessments Encounter Date Diagnosis (ICD Code) Assessment Notes Treatment Notes Treatment Clinical Notes Section Notes 06/04/2024 Tinea unguium (ICD-10 - B35.1) 06/04/2024 Atherosclerosis of [place] artery of both lower extremities, with unspecified presence of clinical manifestation (ICD-10 - I70.203) 08/30/2024 Tinea unguium (ICD-10 - B35.1) 08/30/2024 Atherosclerosis of [place] artery of both lower extremities, with unspecified presence of clinical manifestation (ICD-10 - I70.203) Q7(A), Q8(2B), Q9(1B,2C) 11/29/2024 Tinea unguium (ICD-10 - B35.1) 11/29/2024 Atherosclerosis of [place] artery of both lower extremities, with unspecified presence of clinical manifestation (ICD-10 - I70.203) Q7(A), Q8(2B), Q9(1B,2C) 02/28/2025 Tinea unguium (ICD-10 - B35.1) 03/08/2025 Pain in right toe(s) (ICD-10 - M79.674) 03/08/2025 Onychomycosis (ICD-10 - B35.1) 04/09/2025 Ingrown nail (ICD-10 - L60.0) 05/13/2025 Tinea unguium (ICD-10 - B35.1) 02/28/2025 Atherosclerosis of [place] artery of both lower extremities, with unspecified presence of clinical manifestation (ICD-10 - I70.203) Q7(A), Q8(2B), Q9(1B,2C) 05/13/2025 Atherosclerosis of [place] artery of both lower extremities, with unspecified presence of clinical manifestation (ICD-10 - I70.203) Q7(A), Q8(2B), Q9(1B,2C) 03/08/2025 Pain in left toe(s) (ICD-10 - M79.675) 02/28/2025 Pain in right toe(s) (ICD-10 - M79.674) 05/13/2025 Pain in right toe(s) (ICD-10 - M79.674) 11/29/2024 Pain in right toe(s) (ICD-10 - M79.674) 08/30/2024 Pain in right toe(s) (ICD-10 - M79.674) 06/04/2024 Pain in right toe(s) (ICD-10 - M79.674) 06/04/2024 Pain in left toe(s) (ICD-10 - M79.675) 08/30/2024 Pain in left toe(s) (ICD-10 - M79.675) 11/29/2024 Pain in left toe(s) (ICD-10 - M79.675) 02/28/2025 Pain in left toe(s) (ICD-10 - M79.675) 05/13/2025 Pain in left toe(s) (ICD-10 - M79.675) 08/30/2024 Abscess of toe, right (ICD-10 - L02.611) Patient Educated with: WOUND CARE INSTRUCTIONS. pdf (WOUND CARE INSTRUCTIONS. pdf) 06/04/2024 Xerosis of skin (ICD-10 - L85.3) 08/30/2024 Other 11/29/2024 Other 02/28/2025 Other 05/13/2025 Other Plan Of Treatment Pending Test Test Name Order Date *Liver Function Test (LFT) 03/08/2025 37927-CTVJRQV NAIL, 6 OR MORE 05/13/2025 74407-DUSOJYF NAIL, 6 OR MORE 11/29/2024 80397-XYYGCSP NAIL, 6 OR MORE 02/28/2025 96063-PFDPOCM NAIL, 6 OR MORE 12/07/2023 67566-VACUDMU NAIL, 6 OR MORE 03/08/2024 19916-SEAZDZE NAIL, 6 OR MORE 06/04/2024 06557-UAHVFCI NAIL, 6 OR MORE 08/30/2024 93625-Rgvfrobm Plate 03/08/2024 13014-Hefmxcqm Plate 04/09/2025 50507 I&D ABSCESS- SIMPLE,SINGLE 025 34233-QSEL SKIN LESIONS, 2 TO 4 05/13/20 25 53569-XNKI SKIN LESIONS, 2 TO 4 02/29/20 25 24102-CPMP SKIN LESIONS, 2 TO 4 11/30/19 25 54436-SINY SKIN LESIONS, 2 TO 4 03/08/20 24 83061-YGMD SKIN LESIONS, 2 TO 4 12/07/19 24 67859-YFVW SKIN LESIONS, 2 TO 4 08/31/19 25 25823-EBPE SKIN LESIONS, 2 TO 4 06/04/20 24 Next Appt Details Provider Name:Jacki Brittany koenig, 07/23/2025 04:00:00 PM, [address], [address], [place], [address], Insurance Providers Payer Name Payer Address Payer Phone Subscriber Number Group Number Insured Name Patient Relationship to Insured Coverage Start Date Coverage End Date Medicare National [employer]t S[employer] [address] [place] [address] [id number] CalistaNicole funeza Self - patient is the insured [employer] [address] [place] [address] [id number] Melanie Madison Self - patient is the insured Medical [...]
--- OUTSIDE RECORDS SUMMARY | 2025-06-04 21:59 | XMS_ITS | Patient Health Record ---
Author Organization [facility] Address [address] [place] [address] Care Team Providers Care Blue Split Trimmer Name Role Phone CARROLL SHANNON M.D. Primary Care Provider Analilia Manning Unavailable [phone] Allergies Allergen (clinical drug ingredient) Drug/Non Drug [...] even ing Orally Once a day Active Seward 3 1000 MG 1 capsule Orally Onc [...] Status Risk Notes Problem Gynecological examination abnormal (993863143119723) Encounter for gynecological examination (general) (routine) with abnormal findings (Z01.411) Active confirmed Problem Postmenopausal atrophic vaginitis (47083944) Postmenopausal atrophic vaginitis (N95.2) Active confirmed Problem Age-related osteoporosis (409805694) Age-related osteoporosis without current pathological fracture (M81.0) Active confirmed Problem Urinary incontinence (553881958) Unspecified urinary incontinence (R32) Active confirmed Problem Constipation (93501738) Constipation, unspecified (K59.00) Active confirmed Problem Anxiety state (130170199) Anxiety state, unspecified (300.00) Active confirmed Major Problem Depressive disorder (98561151) Depressive disorder, not elsewhere classified (311) Active confirmed Major Problem Dyspareunia (82564730) Dyspareunia (625.0) Active confirmed Diag Problem Female stress incontinence (71685302) Female stress incontinence (625.6) Active confirmed Major Problem Menopausal symptom (94957364) Symptomatic menopausal or female climacteric states (627.2) Active confirmed Major Problem Postmenopausal atrophic vaginitis (75843698) Postmenopausal atrophic vaginitis (627.3) Active confirmed Diag Problem Osteoporosis (94212102) Unspecified osteoporosis (733.00) Active confirmed Problem Gynecological examination normal (624054847035979) Routine gynecological examination (V72.31) Active confirmed Major Problem Screening for malignant neoplasm of colon (913873794) Special screening for malignant neoplasms, colon (V76.51) Active confirmed Major Vital Signs Temperature 97.4 degrees Fahrenheit 06/28/2024 Blood pressure diastolic 74 mm Hg 06/28/2024 Height 60.8 in 06/28/2024 Blood pressure systolic 108 mm Hg 06/28/2024 Weight 140 lbs 06/28/2024 BMI 26.62 kg/m2 06/28/2024 Encounters Encounter Location Date Provider Diagnosis [facility] [email or web address] [address] [place] [address] 06/28/2024 Analilia Galvan Encounter for gynecological examination [...] Caraballo chelitavalerierachael, 07/05/2025 03:00:00 PM, [address], [address], [place], [address], Insurance Providers Payer Name Payer Address Payer Phone Subscriber Number Group Number Insured Name Patient Relationship to Insured Coverage Start Date Coverage End Date MEDICARE [address] [place] [id number] [phone] [id number] DEONHOLLY MOLINAA Self - patient is the insured [employer] [address] [place] [address] [id number] HOLLY TRANA Self - patient is [...]
== END 2025-06-04 16:06 | disposition home or self-care (01) ==
LOC: HO.HVS 15:26
PROVIDERS: PCP Internal Medicine; Visit Provider Surgery Vascular Surgery
DX: M79.89 Other specified soft tissue disorders (principal)
CPT/HCPCS: 99214

== ENCOUNTER → 2025-06-04 15:25 | Outpatient (BNVA) | payer MEDICARE, SELFPAY | PROVIDERS: PCP Internal Medicine; Visit Provider Surgery Vascular Surgery | DX: M79.89 Other specified soft tissue disorders (principal); M25.561 Pain in right knee; M25.562 Pain in left knee | CPT/HCPCS: 99212 ==

== ENCOUNTER 2025-06-13 13:07 | Outpatient (AMB) | payer MEDICARE, SELFPAY ==
--- OUTSIDE RECORDS SUMMARY | 2024-07-05 10:55 | XMS_ITS ---
Author Organization [facility] Address [address] [place] [address] Care Team Providers Care Fast Food Assistant Restaurant Manager Name Role Phone Darwin Hopper MD Primary Care Provider Zoltan Grant Jr REASON FOR VISIT IBS,gerd Encounters Encounter Location Date Provider Diagnosis [facility] [address] [place] [address] 07/05/2024 Zoltan Vazquez Jr Plan Of Treatment Next Appt Details Provider Name:Zoltan turner Jr, 04/03/2026 03:15:00 PM, [address] [place] [address], [address], [place], [address], Progress Notes * KIKE TRANDOB:1950 (75 yo F)Acc No.[id number]:07/05/2024 Progress Notes Patient: KIKE MORALES Provider: Adeline Vazquez MD :1950 A ge:74 Y S ex:Female Date:07/05/2024 Address:[address] [place] [address] [id number] Pcp:Darwin Hopper MD Subjective: * Chief Complaints: * I BS,gerd * The named appointment provid er may or may not be the originator of this progress note, and it is not deemed complete until electronically signed by the appointment provider. Sign off status: Pending * Provider: Adeline Vazquez MD Date: 0 07/05/2024 Generated for Miranda mariee/Tony/Petronaitting on: 1 08/14/2024 05:09 PM EST
--- OUTSIDE RECORDS SUMMARY | 2024-07-12 09:15 | XMS_ITS ---
Author Organization [facility] Address [address] [place] [address] Care Team Providers Care Senior Front End Web Developer Name Role Phone aDrwin Hopper MD Primary Care Provider Zoltan Grant Jr REASON FOR VISIT IBS,gerd Encounters Encounter Location Date Provider Diagnosis [facility] [address] [facility] [address] [place] [address] 07/12/2024 Zoltan Vazquez Jr Plan Of Treatment Next Appt Details Provider Name:Zoltan turner Jr, 04/03/2026 03:15:00 PM, [address] [facility], [address], [place], [address], Progress Notes * KIKE TRANDOB:1950 (75 yo F)Acc No.[id number]:07/12/2024 Progress Notes Patient: KIKE MORALES Provider: Adeline Vazquez MD :1950 A ge:74 Y S ex:Female Date:07/12/2024 Address:[address] [place] [address] [id number] Pcp:Darwin Hopper MD Subjective: * Chief Complaints: * I BS,gerd * The named appointment provid er may or may not be the originator of this progress note, and it is not deemed complete until electronically signed by the appointment provider. Sign off status: Pending * Provider: Adeline Vazquez MD Date: 0 07/12/2024 Generated for Miranda mariee/Tony/Petronaitting on: 1 08/14/2024 05:10 PM EST
--- OUTSIDE RECORDS SUMMARY | 2024-11-22 10:00 | XMS_ITS ---
Author Organization [facility] Address [address] [place] [address] Care Team Providers Care Senior Media Planner Name Role Phone Darwin Hopper Primary Care Provider Unavailabl Jacki Sadler Unavailable [phone] Jose Baker [phone] Encounters Encounter Location Date [facility] [address] [address] 11/22/2024 Jose Baker Plan Of Treatment Next Appt Details Provider Name:Jacki koenig, 07/23/2025 04:00:00 PM, [address] [place] [address], [address], Progress Notes * DEONNicole MOLINAaDOB:1950 ( 75 yo F)Acc No.[id number]:11/22/2024 Progress Note Patient: Madison MORALES Provider: Bobby Baker DPM :1950 A ge:74 Y S ex:Female Date:11/22/2024 [facility] [facility] [place] Pcp:Darwin Hopper Subjective: * Chief Complaints: * [...] 11/22/2024 Generated for Miranda mariee/Josh on: 1 08/14/2024 05:09 PM EST
--- NOTE | 2025-06-13 13:25 | A.OFFVIS_ITS ---
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 The patient describes her pains as sharp in nature. She has had cortisone injections given into both of her knees at another facility in the past. The most recent cortisone injections gave her no relief. She has not had a viscosupplementation injection. She has undergone knee arthroscopic surgery which gave her temporary relief. She has failed the last 3 months of co nservative treatment which has included Tylenol, anti-inflammatory medicines, a home exercise program and physical therapy exercises. At this point her bilateral knee pains are interfering with her activities of daily living and her ability to sleep well through the night. She wishes to hold off on total knee replacement surgery if at all possible. The patient also reports intermittent pain in both of her feet and ankles. Allergies lamotrigine (From LAMICTAL) Allergy (Intermediate, Verified 06/13/25 13:26) RASH Sulfa (Sulfonamide Antibiotics) (SULFA (SULFONAMIDE ANTIBIOTICS)) Allergy (Intermediate, Verified 06/13/25 13:26) UNKNOWN, upset stomach codeine (CODEINE) Allergy (Mild, Verified 06/13/25 13:26) NAUSEA & VOMITING, nausea and vomiting penicillin V (PENICILLIN V) Allergy (Mild, Verified 06/13/25 13:26) NAUSEA & VOMITING, sick to stomach, nausea and vomiting ciprofloxacin (Cipro) Allergy (Unknown, Verified 06/13/25 13:26) sick to stomach ibuprofen (From Motrin) Adverse Reaction (Verified 06/13/25 13:26) sick to stomach, nausea and vomiting Medication List - Last Reconciled 06/13/25 by Ronnie Rodriguez MD alendronate 70 mg PO QWEEK alprazolam 0.5 mg PO ONCE calcium carb and citrat-mag ox 200 mg calcium- 50 mg tabs PO cholecalciferol (vitamin D3) 25 mcg PO DAILY ciclopirox 1% topical clotrimazole 1% 1 appl topical BID compress.stocking,knee,reg,med As directed 20-30 mm HG cyclosporine 0.09% (Cequa) 1 drp ophthalmic (eye) Q12H duloxetine 120 mg PO DAILY dupilumab (Dupixent) 300 mg subcut Q2W furosemide (Lasix) 40 mg (2 x 20 mg) PO DAILY multivitamin 1 tab PO DAILY nystatin 6 mL PO QID omega-3 fatty acids 1,000 mg PO DAILY omeprazole 20 mg PO DAILY pyridoxine (vitamin B6) 100 mg PO DAILY 90 days roflumilast 0.15% (Zoryve) appl topical simvastatin 5 mg PO BEDTIME terbinafine HCl mg PO tobramycin-dexamethasone 0.3-0.1 % (TobraDex) ophthalmic (eye) vitamin K2 45 mcg PO DAILY [facility] Medical History Post-nasal drip Bronchitis Numbness in feet Impacted cerumen of left ear Hoarseness Stye Hoarseness Hip pain, right Lower back pain Colon cancer screening Acute sinusitis Trigger finger of right hand Bile salt-induced diarrhea Osteoarthritis Irritable bowel syndrome GERD (gastroesophageal reflux disease) Essential tremor Hypercholesterolemia Calculus of left kidney Constipation Cholecystectomy planned Right knee meniscal tear Hepatitis Osteoporosis Umbilical hernia History of duodenal ulcer Liver hemangioma Surgical History Hx of tonsillectomy History of cholecystectomy Cataract History of knee surgery History of eyelid surgery H/O adenoidectomy History of appendectomy Family History Father Hypertension Prostate cancer Mother Hypertension Diabetes Dementia Maternal Aunt Gastric cancer Paternal Aunt Gastric cancer Ovarian cancer Paternal Uncle Myocardial infarction Social History Household Members: Spouse Housing: House Do you presently have visiting nurse or other home services: No Alcohol intake: never Patient Tobacco Use Status: Never used Tobacco Tobacco use type: Cigarette e-Cigarette/Vaping Use: Never Used Second Hand Smoke Exposure: No service: No Current occupational status: retired Cognitive needs: No Hearing needs: No Vision needs: Yes Physical Exam Vital Signs: BMI result Body Mass Index 26.0 Extrem Other: Bilateral knee examination shows minimal effusions, palpable crepitus with range of motion, pain with range of motion, no instability Results Reviewed Results Reviewed: X-rays of the patient's bilateral knee show moderate diffuse joint space narrowing, no acute bony abnormalities Assessment & Plan Assessment & Plan (1) Osteoarthritis of left knee: Code(s): M17.12 - Unilateral primary osteoarthritis, left knee Category: Medical (2) Osteoarthritis of right knee: Code(s): M17.11 - Unilateral primary osteoarthritis, right knee Category: Medical Plan Ms. Navarro presents with bilateral knee pains due to osteoarthritis. I had a lengthy discussion with the patient regarding the treatment options. She wishes to hold off on further surgery if at all possible. I agree with this plan. I will see if the patient's insurance company will cover a viscosupplementation injection, such as Durolane, for both of her knees. I will see her back once the injections are approved. I will also refer her to our podiatry department for further evaluation of her bilateral foot and ankle pains. Feel free to call me at any time should questions regarding her orthopedic management arise. I spent 20 minutes in reviewing the patient's records and imaging studies, seeing the patient and documenting in the medical record. Orders: Referrals Podiatry Referral M79.671 - Pain in right foot, M79.672 - Pain in left foot Coding Level of Care Code Est Pt Level 3 (84747) Add On Problem Visit Only Diagnoses Osteoarthritis of left knee M17.12 Osteoarthritis of right knee M17.11
[2025-06-13 13:26] VITALS: BMI 26.0
--- OUTSIDE RECORDS SUMMARY | 2025-06-13 17:09 | XMS_ITS | Clinical Summary ---
Author Organization [facility] Prior to 11/24/[address] [place] [address] Care Team Providers Care Geographic Information Scientist Name Role Phone Darwin Hopper MD Primary Care Provider [phone] Allergies Active Allergy Reactions Criticality Noted Date [...] by mouth. 0 07/30/2015 Active nystatin (MYCOSTATIN) 234425 units tablet Take by mouth. 0 07/30/2015 [...] age to complete this topic Care Teams Geographic Information Scientist Relationship Specialty Start Date End Date Po, Darwin Wasserman MD [address] [place] [address] Dr Solor[address] [facility] [place], [place] [id number] PCP - General Internal Medicine 08/13/19
--- OUTSIDE RECORDS SUMMARY | 2025-06-13 17:09 | XMS_ITS | Clinical Summary ---
Author Organization [facility] Address [address] [place] [address] Phone Care Team Providers Care Padding Gluer Name Role Phone Darwin Hopper MD Primary Care Provider [phone] Surgical History Surgery Date Site/Laterality Comments ADENOIDECTOMY [...] year. Mammo Location: [facility], [address] [place] [address], [address], . -------- FINAL REPORT -------- Dictated By: Geneva Coronel Dictated Date: 09/13/2024 15:07 ET Assigned Physician: Geneva Coronel Reviewed and Electronically Signed By: Geneva Coronel Signed Date: 09/13/2024 15:09 ET Workstation ID: [id number] Transcribed By: Self Edit Transcribed Date: 09/13/2024 [...] year. Mammo Location: [facility], [address] [place] [address], [address], . -------- FINAL REPORT -------- Dictated By: Geneva Coronel Dictated Date: 09/13/2024 15:07 ET Assigned Physician: Geneva Coronel Reviewed and Electronically Signed By: Geneva Coronel Signed Date: 09/13/2024 15:09 ET Workstation ID: [id number] Transcribed By: Self Edit Transcribed Date: 09/13/2024 15:07 ET us Self Referral Sppl IMG BI PROCEDURES Final Resul t * JAIME DEXA AXIAL SKELETON (07/18/2023 3:48 PM EST) Anatomical Region Laterality Modality Mammography 07/18/2023 2:51 PM EST Narrative 07/18/2023 3:48 PM EST [facility] Diagnostic Imaging Department [address] [place] [address] [id number] Patient: KIKE NAVARROO.B./Age/Sex: 1950 - 73 - F Unit#: [id number] Location/Status: SPDIMAM/REG CLI Mnemonic/Ordering Site: [facility] Ordering Physician: ANALILIA OWENS MD [facility] Dexa Axial Skeleton - 07/18/23 - 1525 Report Status:Signed History: Low estrogen state due to menopause. Personal history of fracture. Height loss. Comparison: 06/02/21 Findings: Bone densitometry is performed utilizing dual energy x-ray absorptiometry (DXA) in the Factyle unit. The lumbar spine and proximal femora [...] 25.9 percent Hip 8.1 percent. IMPRESSION: Osteoporosis. [id number] Dictating Physician: BAILEY NIETO MD Electronically Signed by: BAILEY NIETO MD Dic Date/Time: 07/18/23 1547 Sign date/Time: 07/18/23 1548 Procedure Note Bailey Nieto MD - 02/13/2024 [facility] Diagnostic Imaging Department [address] [place] [address] Patient: KIKE NAVARRO Bee Silverio/Age/Sex: 1950 - 73 - F Unit#: [id number] Location/Status: [facility]/REG CLI Mnemonic[facility] Ordering Physician: ANALILIA OWENS MD Jaime Dexa Axial Skeleton - 07/18/23 - 1525 Report Status:Signed History: Low estrogen state due to menopause. Personal history offracture. Height loss. Comparison: 06/02/21 Findings: Bone densitometry is performed utilizing dual energy x-ray absorptiometry(DXA) in the Factyle unit. The lumbar spine and proximal femora [...] 25.9 percent Hip 8.1 percent. IMPRESSION: Osteoporosis. 41695 Dictating Physician: BAILEY NIETO MD Electronically Signed by: BAILEY NIETO MD Dic Date/Time: 07/18/23 1547 Sign date/Time: 07/18/23 1548 Analilia Owens MD IMG BI PROCEDURES Final Re sult from Last 3 Months or Most Recently Relevant to Health Maintenance Insurance MEDICARE Care Teams Padding Gluer Relationship Specialty Start Date End Date Darwin Hopper MD [address] [place] [address] [address] [facility] [place] [address] PCP - General Internal Medicine 08/13/19
--- OUTSIDE RECORDS SUMMARY | 2025-06-13 17:10 | XMS_ITS | Patient Health Record ---
[facility] Address [address] [place] [address] Care Team Providers Care Painter Supervisor Name Role Phone Darwin Hopper Primary Care Provider Jacki Christianson Unavailable [phone] Jose Baker Unavailable [phone] Allergies Allergen (clinical drug ingredient) Drug/Non Drug Allergy documented on EMR Reaction Allergy Type Onset Date Status codeine Codeine upset stomach Drug Allergy Act alexander Substance with sulfonamide structure and antibacterial mechanism of action (substance) Sulfa Antibiotics rash Drug Allergy Active Reason For Referral No Information Medications Medication SIG (Take, Route, Frequency, Duration) Notes Start Date End Date Status Terbinafine HCl 250 MG 1 tablet Orally O nce a day for seven days, hold for 3 weeks then repeat; Duration: 90 days 03/12/2025 Active Cymbalta Active Fosamax Active Multivitamin Active Emmett 3 Active Dupixent 300 MG/2ML 2 mL [...] even ing Orally Once a day Active Triamcinolone Acetonide 0.1 % External; Duration: [...] Status Risk Notes Problem Acquired hallux valgus (56768755) Hallux valgus (acquired), right foot (M20.11) Active confirmed Problem Bilateral atherosclerosis of arteries of lower limbs (disorder) (54658469800038569 ) Atherosclerosis of manzanita artery of both lower extremities, with unspecified presence of clinical manifestation (I70.203) Active confirmed Q7(A), Q8(2B), Q9(1B,2 C) Vital Signs Heart Rate 84 /min 04/09/2025 Blood pressure diastolic 65 mm Hg 05/13/2025 Height 4ft 11 in in 05/13/2025 Blood pressure systolic 128 mm Hg 05/13/2025 Weight 132 lbs 05/13/2025 BMI 26.66 kg/m2 05/13/2025 Procedures Procedure Date Ordered Date Performed Result Body Sit e 46159-RDIIJNM NAIL, 6 OR MORE 08/30/2024 N/A 40451 I&D ABSCESS- SIMPLE,SINGLE 08/30/2024 N/A 87616-TDIA SKIN LESIONS, 2 TO 4 08/30/2024 N/A 00604-QJYCTPT NAIL, 6 OR MORE 11/29/2024 N/A 70943-JPUR SKIN LESIONS, 2 TO 4 11/29/2024 N/A 77466-IWARAKX NAIL, 6 OR MORE 02/28/2025 N/A 00023-ICNU SKIN LESIONS, 2 TO 4 02/28/2025 N/A 88697-Mqodsfcl Plate 04/09/2025 N/A 65237-OIVJLXD NAIL, 6 OR MORE 05/13/2025 N/A 27666-VUGQ SKIN LESIONS, 2 TO 4 05/13/2025 N/A Encounters Encounter Location Date Provider Diagnosis [address] [address] 08/30/2024 Jose Baker Atherosclerosis of manzanita artery of both lower extremities, with unspecified presence of clinical manifestation I70.203 ; Tinea unguium B35.1 ; Pain in right toe(s) M79.674 ; Pain in left toe(s) M79.675 and Abscess of toe, right L02.[address] [address] 11/29/2024 Jose Baker Atherosclerosis of manzanita artery of both lower extremities, with unspecified presence of clinical manifestation I70.203 ; Tinea unguium B35.1 ; Pain in right toe(s) M79.674 and Pain in left toe(s) M79.[address] [address] 02/28/2025 Jose Baker Atherosclerosis of manzanita artery of both lower extremities, with unspecified presence of clinical manifestation I70.203 ; Tinea unguium B35.1 ; Pain in right toe(s) M79.674 and Pain in left toe(s) M79.[address] [address] 03/08/2025 Jacki Leon Pain in right toe(s) M79.674 ; Onychomycosis B35.1 and Pain in left toe(s) M79.[address] [place] [address] 04/09/2025 Jacki Leon Ingrown nail L60.[address] [address] 05/13/2025 Jacki Leon Atherosclerosis of manzanita artery of both lower extremities, with unspecified presence of clinical manifestation I70.203 ; Tinea unguium B35.1 ; Pain in right toe(s) M79.674 and Pain in left toe(s) M79.[address] [address] 08/27/2024 [facility] [address] [place] [address] 03/07/2025 Jose Samuel [address] [address] 03/08/2025 Jacki Leon [address] [address] 04/03/2025 Jacki Leon [facility] [address] [place] [address] 06/06/2025 Jacki Leon [address] [address] 06/11/2025 Jackiisabella Leon Assessments Encounter Date Diagnosis (ICD Code) Assessment Notes Treatment Notes Treatment Clinical Notes Section Notes 08/30/2024 Tinea unguium (ICD-10 - B35.1) 08/30/2024 Atherosclerosis of manzanita artery of both lower extremities, with unspecified presence of clinical manifestation (ICD-10 - I70.203) Q7(A), Q8(2B), Q9(1B,2C) 11/29/2024 Tinea unguium (ICD-10 - B35.1) 11/29/2024 Atherosclerosis of manzanita artery of both lower extremities, with unspecified presence of clinical manifestation (ICD-10 - I70.203) Q7(A), Q8(2B), Q9(1B,2C) 02/28/2025 Tinea unguium (ICD-10 - B35.1) 03/08/2025 Pain in right toe(s) (ICD-10 - M79.674) 03/08/2025 Onychomycosis (ICD-10 - B35.1) 04/09/2025 Ingrown nail (ICD-10 - L60.0) 05/13/2025 Tinea unguium (ICD-10 - B35.1) 02/28/2025 Atherosclerosis of manzanita artery of both lower extremities, with unspecified presence of clinical manifestation (ICD-10 - I70.203) Q7(A), Q8(2B), Q9(1B,2C) 05/13/2025 Atherosclerosis of manzanita artery of both lower extremities, with unspecified [...] pdf (WOUND CARE INSTRUCTIONS. pdf) 08/30/2024 Other 11/29/2024 Other 02/28/2025 Other 05/13/2025 Other Plan Of Treatment Pending Test Test Name Order Date *Liver Function Test (LFT) 03/08/2025 86418-PSSKSDA NAIL, 6 OR MORE 05/13/2025 56582-BTCTSNU NAIL, 6 OR MORE 11/29/2024 91180-EXNGQDM NAIL, 6 OR MORE 02/28/2025 20061-VDYVLAN NAIL, 6 OR MORE 12/07/2023 68686-ALPMCRH NAIL, 6 OR MORE 03/08/2024 49403-KRNQYTC NAIL, 6 OR MORE 06/04/2024 41485-JGCPXTG NAIL, 6 OR MORE 08/30/2024 90049-Kdykjaci Plate 03/08/2024 07305-Kkjvuqzp Plate 04/09/2025 39655 I&D ABSCESS- SIMPLE,SINGLE 025 62301-LSAZ SKIN LESIONS, 2 TO 4 05/13/20 25 89263-LLEV SKIN LESIONS, 2 TO 4 02/29/20 25 93767-XVMB SKIN LESIONS, 2 TO 4 11/30/19 25 86266-TOKC SKIN LESIONS, 2 TO 4 03/08/20 24 31088-MFIH SKIN LESIONS, 2 TO 4 12/07/19 24 12504-UTZI SKIN LESIONS, 2 TO 4 08/31/19 25 80908-CIKQ SKIN LESIONS, 2 TO 4 06/04/20 24 Next Appt Details Provider Name:Jacki Soto arya, 07/23/2025 04:00:00 PM, [address] [facility], [facility] [address], [place], [address], Insurance Providers Payer Name Payer Address Payer Phone Subscriber Number Group Number Insured Name Patient Relationship to Insured Coverage Start Date Coverage End Date Medicare National Govt Sv[employer] [address] [place] [address] [id number] Madison Navarro Self - patient is the insured [employer] [address] [place] [address] [id number] Madison Navarro Self - patient is the [...]
--- OUTSIDE RECORDS SUMMARY | 2025-06-13 17:10 | XMS_ITS | Clinical Summary ---
Author Organization [facility] Address [address] [place], [place] [id number] Phone Care Team Providers Care Energy Efficient Site Manager Name Role Phone Darwin Hopper MD Primary Care Provider [phone] Social History Tobacco Use Types Packs/Day Years Used Date Smoking Tobacco: Never Assessed Comments Unknown Sex and Gender Information Value Date Recorded Sex Assigned at Not on file Legal Sex Female 10:04 PM EDT Gender Identity Not on file Sexual Orientation Not on file Plan of Treatment Not on file Medical Devices Not on file Insurance [employer] MEDEX SUPPLEMENT MEDICARE PART A & B [employer] MEDEX SUPPLEMENT MEDICARE PART A & B [employer]OSS MEDEX SUPPLEMENT MEDICARE PART A & B [employer] MEDEX SUPPLEMENT MEDICARE PART A & B [employer] MEDEX SUPPLEMENT MEDICARE PART A & B [employer] CR[employer] MEDEX SUPPLEMENT MEDICARE PART A & B Care Teams Energy Efficient Site Manager Relationship Specialty Start Date End Date Darwin Hopper MD [address] [place] [address] PCP - General Internal Medicine 10/22/24 Additional Source Comments The information contained in this document represents components of the legal health record. It is not the complete legal health record.[facility]
--- OUTSIDE RECORDS SUMMARY | 2025-06-13 17:10 | XMS_ITS | Patient Health Record ---
Author Organization [employer] [facility] Address [address] [place] [address] Care Team Providers Care Mud Analysis Well Logging Operator Name Role Phone CARROLL SHANNON M.D. Primary Care Provider Analilia Manning Unavailable [phone] Allergies Allergen (clinical drug ingredient) Drug/Non Drug [...] even ing Orally Once a day Active [place] 3 1000 MG 1 capsule Orally Onc [...] Status Risk Notes Problem Gynecological examination abnormal (845563828418688) Encounter for gynecological examination (general) (routine) with abnormal findings (Z01.411) Active confirmed Problem Postmenopausal atrophic vaginitis (53671850) Postmenopausal atrophic vaginitis (N95.2) Active confirmed Problem Age-related osteoporosis (896155630) Age-related osteoporosis without current pathological fracture (M81.0) Active confirmed Problem Urinary incontinence (682187437) Unspecified urinary incontinence (R32) Active confirmed Problem Constipation (93169845) Constipation, unspecified (K59.00) Active confirmed Problem Anxiety state (705122189) Anxiety state, unspecified (300.00) Active confirmed Major Problem Depressive disorder (71588775) Depressive disorder, not elsewhere classified (311) Active confirmed Major Problem Dyspareunia (99161635) Dyspareunia (625.0) Active confirmed Diag Problem Female stress incontinence (56169971) Female stress incontinence (625.6) Active confirmed Major Problem Menopausal symptom (40361089) Symptomatic menopausal or female climacteric states (627.2) Active confirmed Major Problem Postmenopausal atrophic vaginitis (41209377) Postmenopausal atrophic vaginitis (627.3) Active confirmed Diag Problem Osteoporosis (33044034) Unspecified osteoporosis (733.00) Active confirmed Problem Gynecological examination normal (750090328128492) Routine gynecological examination (V72.31) Active confirmed Major Problem Screening for malignant neoplasm of colon (614195315) Special screening for malignant neoplasms, colon (V76.51) Active confirmed Major Vital Signs Temperature 97.4 degrees Fahrenheit 06/28/2024 Blood pressure diastolic 74 mm Hg 06/28/2024 Height 60.8 in 06/28/2024 Blood pressure systolic 108 mm Hg 06/28/2024 Weight 140 lbs 06/28/2024 BMI 26.62 kg/m2 06/28/2024 Encounters Encounter Location Date Provider Diagnosis [facility] [place] [employer] [address] [place] [address] 06/28/2024 Analilia Galvan Encounter for gynecological examination [...] Name:Analilia Caraballo chelitavalerierachael, 07/05/2025 03:00:00 PM, [address], [address], [place], [address], Insurance Providers Payer Name Payer Address Payer Phone Subscriber Number Group Number Insured Name Patient Relationship to Insured Coverage Start Date Coverage End Date MEDICARE [address] [place] [id number] [phone] [id number] DEONHOLLY MOLINAA Self - patient is the insured MEDEX [address] [place] [address] [phone] [id number] HOLLY [id number] Self - patient is [...]
--- OUTSIDE RECORDS SUMMARY | 2025-06-13 17:10 | XMS_ITS | Patient Health Record ---
Author Organization [facility] Address [address] [place] [address] Care Team Providers Care Gravity Prospecting Operator Name Role Phone Darwin Hopper MD [...] Orally Th ree times a day Not-Taking/PRN [place] 3 1000 MG Capsule 1 AND half [...] Risk Notes Problem Left lower quadrant pain (414735957) Left lower quadrant pain (R10.32) Active confirmed Problem Functional diarrhea (73193317) Functional diarrhea (K59.1) Active confirmed Problem Backache (664364020) Dorsalgia, unspecified (M54.9) Active confirmed Problem Elevated liver enzymes level (400614652) Elevated LFTs (R79.89) Active confirmed Problem Gastroesophageal reflux disease without esophagitis (936627917) Gastroesophageal reflux disease without esophagitis (K21.9) Active confirmed Problem Dysphagia (09831999) Dysphagia, unspecified type (R13.10) Active confirmed Problem Left lower quadrant pain (708169637) Abdominal pain, LLQ (R10.32) Active confirmed Problem Irritable bowel syndrome characterized by constipation (700561762) Irritable bowel syndrome with constipation (K58.1) Active confirmed Problem Family history of polyp of colon (695439832) FH: colon polyps (Z83.71) Active confirmed Problem Left lower quadrant pain (122822069) LLQ pain (R10.32) Active confirmed Vital Signs Temperature 98.6 degrees Fahrenheit 10/22/2024 Blood pressure diastolic 01 mm Hg 05/16/2025 Height 61 in 05/16/2025 Blood pressure systolic 001 mm Hg 05/16/2025 Weight 135.4 lbs 05/16/2025 BMI 25.58 kg/m2 05/16/2025 Encounters Encounter Location Date Provider Diagnosis [facility] [address] [place] [address] 10/22/2024 Zoltan Vazquez Jr Gastroesophageal reflux disease without esophagitis K21.9 and Irritable bowel syndrome with constipation K58.1 [facility] [address] [place] [address] 05/16/2025 Zoltan Vazquez Jr Irritable bowel syndrome with constipation K58.1 and Gastroesophageal reflux disease without esophagitis K21.9 [facility] [address] [place] [address] 07/11/2024 Zoltan Vazquez Jr Assessments Encounter Date [...] Name:Zoltan Melonie turner , 04/03/2026 03:15:00 PM, [address] [place] [address], [facility] [address], [place], [address], Insurance Providers Payer Name Payer Address Payer Phone Subscriber Number Group Number Insured Name Patient Relationship to Insured Coverage Start Date Coverage End Date MEDICARE OF [place] [address] [place] [address] [id number] KIKE TRAN Self - patient is the insured MEDEX ATTN CLAIMS [address] [place] [address] [phone] [id number] KIKE [id number] Self - patient is the [...]
== END 2025-06-13 13:46 | disposition home or self-care (01) ==
LOC: HO.HOS 13:08
PROVIDERS: PCP Internal Medicine; Visit Provider Orthopaedic Surgery
DX: M17.0 Bilateral primary osteoarthritis of knee (principal)
CPT/HCPCS: 99213; G2211

== ENCOUNTER → 2025-06-13 13:07 | Outpatient (BNVA) | payer MEDICARE, SELFPAY | PROVIDERS: PCP Internal Medicine; Visit Provider Orthopaedic Surgery | DX: M17.0 Bilateral primary osteoarthritis of knee (principal); M79.672 Pain in left foot; M79.671 Pain in right foot; M25.572 Pain in left ankle and joints of left foot; M25.571 Pain in right ankle and joints of right foot | CPT/HCPCS: 99212 ==